=== PATIENT | male | born 1995 | race Caucasian/White ===

== ENCOUNTER 2019-07-18 06:47 | Emergency (ER) | payer OTHER, SELFPAY ==
[2019-07-18 06:48] VITALS: BP 176/106; PULSE 95; RESP 18; TEMP 36.9; O2SAT 100; BMI 39.8
[2019-07-18 06:53] VITALS: BP 165/96
--- NOTE | 2019-07-18 07:02 | RAD_ITS ---
STUDY: X-RAY CHEST REASON FOR EXAM: Male, 24 years old. cough x 2 weeks TECHNIQUE: PA and lateral views of the chest. COMPARISON: None. FINDINGS: The lungs are clear and expanded. There is no demonstrated pleural abnormality. Normal size heart. Normal mediastinum and osvaldo. Normal visualized pulmonary arteries. Normal visualized aortic arch and descending thoracic aorta. Normal visualized thoracic spine. Normal visualized ribs, clavicles, and shoulders. RAD/Chest PA and Lateral IMPRESSION: Normal x-ray examination of the chest. Electronically Signed: Tong Ching MD at 8:06 EST , Service support ,
--- NOTE | 2019-07-18 07:03 | ED.DCSUM_ITS ---
History of Present Illness Chief Complaint: Cold Sx Detail of Chief Complaint: Difficulty breathing when sitting Informant: Patient Onset: Weeks - Onset of illness 2 weeks ago Context: Sudden Onset Timing: Continuous Quality: Congestion, change in voice, productive cough Location: Respiratory Current Severity: Mild Maximum Severity: Moderate Worsened by: Sitting Relieved by: Nothing Associated Symptoms: Posttussive vomiting Narrative: Patient is a 24-year-old non-smoker who presents with upper respiratory symptoms that started 2 weeks ago. He initially complained of congestion postnasal drainage. He now complains of sore throat. His cough is productive of colored sputum. He presents because he is having difficulty breathing and he is now vomiting after coughing. Sputum is yellow. Emesis is yellow. There is no blood or coffee grounds noted. He denies epigastric pain or chest pain. He denies fever or chills. He denies ocular, visual symptoms. He states his hearing is muffled. He denies ringing in his ears or pain in his ears. He denies headache, neck pain, stiffness or photophobia. He denies rash. He denies ill contacts. Prior similar symptoms: No Recent Illness/Hospitalization: No - Past Medical History (1) No significant past medical history Status: Acute Past Medical History - Allergies and Home Meds Allergies/Adverse Reactions: Allergies No Known Allergies Allergy (Verified 07/18/19 06:50) Primary Care Physician: Ziyad Mcdonald MD [STAFF PHYSICIAN] - Prior records reviewed: No Past Medical History: None Surgical History: no surgical history Lives: Spouse/ Significant Other, With Family Smoking Status: Never smoker Alcohol: None Drugs: None Review of Systems General: Reports: Malaise. Denies: Chills, Fever, Subjective, Sweats Eyes: Denies: Visual changes - bilaterally, Blurred Vision - bilaterally ENT: Reports: Rhinorrhea, Sore throat, - - Muffled hearing. Denies: Bilateral ear pain Cardiovascular: Denies: Chest pain, Palpitations Respiratory: Reports: Dyspnea, Cough, Sputum. Denies: Dyspnea on exertion, Orthopnea, Paroxysmal nocturnal dyspnea Gastrointestinal: Denies: Abdominal pain, Nausea, Vomiting, Diarrhea, Melena, Hematochezia Genitourinary: Denies: Dysuria, Hematuria, Frequency Musculoskeletal: Denies: Myalgias, Arthralgias, Neck pain, Back pain, Swelling, Extremity Pain, -, - Neurological: Denies: Headache, Weakness, Parasthesia Allergy: Denies: Uticaria, Swelling of the mouth, Swelling of the tongue Physical Exam Vital Signs/Narrative: Vital Signs Temp Pulse Resp BP Pulse Ox 07/18/19 06:53 165/96 H 07/18/19 06:48 98.5 F 95 18 176/106 H 100 Inital Vital Signs reviewed: Yes General: Well nourished, Well developed, Obese, No Acute Distress Head: Normocephalic, Atraumatic Eyes: Perrl, EOMI. Negative for: Pale conjunctiva, Scleral icterus ENT: Moist mucous membranes, TM's clear, Nasal congestion, - - Patient's voice is nasal sounding.. Negative for: No rhinorrhea, Sinus tenderness Neck: Supple, Nontender, No lymphadenopathy, No JVD, - - Trachea is midline. There is no stridor. Cardiovascular: Regular rate, Regular rhythm, No murmurs, Normal S1, Normal S2 Respiratory: No distress, Chest nontender, Wheezing - There is wheezing with forced expiration. Abdomen: Soft, Nontender, Nondistended, Normal bowel sounds Back: Nontender, Normal Inspection Extremities: Nontender, No edema Skin: Normal color, No rash. Negative for: Cyanosis, Diaphoresis, Jaundice Neurological: Alert, Oriented x3, Cranial nerves II-XII grossly intact, Normal Strength, Normal Sensation Psychological: Normal affect, Normal Mood Diagnostic/Tx/Re-eval Chest X-Ray - ED: 2 View, Read by ED Physician, Normal, Heart, Lungs, Mediastinum, Bony Structures, No Acute Disease, No Infiltrates 07/18/19 07:02 Chest PA and Lateral [RAD] Stat - Medical Decision Making Since patient had a cough for 2 weeks that is productive of colored sputum and he is wheezing with no history of asthma will obtain chest x-ray to assess for pneumonia. Since he has never used a metered-dose inhaler he was instructed how to. 4 puffs of albuterol was administered per respiratory. Chest x-ray is normal. Since patient had a productive cough for 2 weeks and he reports sputum is green in color will treat with doxycycline. And will also instruct to use inhaler. ED Disposition - Plan for ED Patient: Disposition: Home or Assisted Living Diagnosis: Purulent bronchitis, Hyperactive airway disease Instructions: BRONCHITIS with Wheezing (Adult) Prescriptions: Doxycycline 100 mg PO BID #10 cap Transmission Status: Pending to [facility] [employer] [facility] Referrals: Ziyad Mcdonald MD [STAFF PHYSICIAN] - Ricco Paz DO [STAFF PHYSICIAN] - 1 Week if not improving Additional Instructions: 1. Take antibiotics until gone 2. 2 puffs of inhaler every 4 hours while awake for the next 2 days and every 4-6 hours as needed for shortness of breath/wheezing.
== END 2019-07-18 07:39 | disposition home or self-care (01) ==
PROVIDERS: Emergency Provider Emergency Medicine
DX: J41.1 Mucopurulent chronic bronchitis (principal); J45.909 Unspecified asthma, uncomplicated; E66.9 Obesity, unspecified; Z68.39 Body mass index [BMI] 39.0-39.9, adult
CPT/HCPCS: 71046; 94640; 99283

== ENCOUNTER 2019-07-23 09:27 | Emergency (ER) | payer OTHER, SELFPAY ==
[2019-07-23 09:28] VITALS: BP 178/105; PULSE 102; RESP 16; TEMP 36.6; O2SAT 99; BMI 39.8
--- NOTE | 2019-07-23 09:38 | RAD_ITS ---
STUDY: X-RAY CHEST REASON FOR EXAM: Male, 24 years old. COLD LIKE S/S, COUGH, RUNNY NOSE. C/O CONGESTION, NOT TAKING ANYTHING FOR S/S. TECHNIQUE: PA and lateral views of the chest. COMPARISON: July 17, 2019. FINDINGS: The lungs are clear and expanded. There is no demonstrated pleural abnormality. Normal size heart. Normal mediastinum and osvaldo. Normal visualized pulmonary arteries. Normal visualized aortic arch and descending thoracic aorta. Normal visualized thoracic spine. Normal visualized ribs, clavicles, and shoulders. There is no demonstrated abnormality of the visualized soft tissue structures of the upper abdomen. RAD/Chest PA and Lateral IMPRESSION: Normal x-ray examination of the chest. Electronically Signed: Sav Yeager MD at 12:03 EST , Service support ,
--- NOTE | 2019-07-23 09:39 | EKG12_ITS ---
Test Reason : SOB Blood Pressure : / mmHG Vent. Rate : 100 BPM Atrial Rate : 100 BPM P-R Int : 150 ms QRS Dur : 102 ms QT Int : 348 ms P-R-T Axes : 028 029 026 degrees QTc Int : 448 ms Normal sinus rhythm Septal infarct , age undetermined Abnormal ECG Confirmed by AGUEDA JIMENEZ ([id number]), editor index RANDY WASHINGTON ([id number]) on 07/25/2019 10:41:31 AM Referred By: CASSIE Confirmed By:AGUEDA JIMENEZ
[2019-07-23] MEDS: LORazepam 1 MG Tablet PO (09:47)
--- NOTE | 2019-07-23 09:47 | ED.DCSUM_ITS ---
- ER Visit Summary Date of Service: 07/23/19 Chief Complaint: [Shortness of breath] History of Present Illness: The patient is a 24 M [the emergency department with 2-week history of cough and shortness of breath. Patient was seen in the emergency department 5 days ago for the same complaint and had a chest x-ray that was unremarkable. Patient was started on doxycycline and given an albuterol MDI. Patient states that he been doing pretty well until this morning. Patient states that he is only been using his inhaler once a day usually in the morning. This morning states that he had some phlegm in the throat and then started feeling like he could not breathe. Patient feels like there is something stuck in his throat. Patient states that at times she will get some numbness and tingling of his lips. He has no history of anxiety or panic attacks that he knows of. Patient still bringing up some mucus at times it is white and clear in color. He has had no fevers. He denies any chest pain.] Physical Examination: [HEENT-PERRLA, EOMI. Cranial nerves II through XII nicolas ssly intact. TMs clear. Mucous membranes moist. No adenopathy. Cardiovascular-regular rate and rhythm without murmur or ectopy Lungs-clear to auscultation, chest wall stable without crepitus or subcu emphysema Abdomen-normoactive bowel sounds, soft, nontender, no rebound or rigidity, no peritoneal signs. Extremities-intact ?4, normal range of motion, normal pulses, atraumatic] Test Results: [D-dimer performed was normal 0.48. Repeat chest x-ray obtained showed nothing acute on my interpretation.] EKG obtained showed a sinus rhythm with a ventricular rate of 100 bpm with no acute ST segment changes. Emergency Department Course and Treatment: [Was given Ativan 1 mg p.o. and his symptoms resolved.] Treatment Plan: [Patient will be given a prescription for PRN Ativan. Patient is in the process of setting up a follow-up appointment with primary care physician in the clinic.] Patient to finish his antibiotic. He is to continue with his inhaler as needed for wheezing although there was no evidence of wheezing in the department today. Disposition: [Discharged home in stable condition] Impression: [Dyspnea URI Anxiety] This note was generated with [employer] software. It may contain incorrect words, spelling, and punctuation that were not noted in review of the chart prior to signing ED Disposition - Plan for ED Patient: Referrals: Care Physician,No Primary [Primary Care Provider] -
[2019-07-23 10:31] LABS: D-Dimer Quantitative (DVT/PE) 0.48 FEU/ug/m (0.27-0.49)
--- NOTE | 2019-07-23 10:53 | ED.DEP ---
ED Disposition - Plan for ED Patient: Instructions: BRONCHITIS, Antiobiotic Treatment (Adult), Panic Attack Prescriptions: Lorazepam [Ativan] 1 mg PO TID PRN #10 tab PRN Reason: Anxiety Prescription Printed Referrals: Care Physician,No Primary [Primary Care Provider] - 5-7 Days
[2019-07-23 11:05] VITALS: BP 129/57; PULSE 62; RESP 15; O2SAT 99
== END 2019-07-23 11:05 | disposition home or self-care (01) ==
LOC: ED 09:41
PROVIDERS: Emergency Provider Emergency Medicine
DX: J06.9 Acute upper respiratory infection, unspecified (principal); J40 Bronchitis, not specified as acute or chronic; R06.00 Dyspnea, unspecified; F41.9 Anxiety disorder, unspecified
CPT/HCPCS: 36415; 71046; 85379; 93005; 99282

== ENCOUNTER → 2019-07-26 08:35 | Outpatient (CLI) | payer OTHER, SELFPAY ==
[2019-07-23 09:28] VITALS: BMI 39.8
--- NOTE | 2019-07-26 08:48 | RAD_ITS ---
Procedure: Fluoroscopically guided, dedicated esophagram including frontal and lateral cine views of the larynx/pharynx region. INDICATIONS: Dysphagia. Feels like lump in throat, burning sensation when burping, coughing and choking with swallowing solids and liquids. Fluoroscopy time: 1 minute and 23 seconds. TECHNIQUE: The patient easily and readily swallowed effervescent crystals, various density barium contrast and a barium pill. FINDINGS: Esophageal motility appears normal. There is no esophageal stricture, web or diverticulum. There is no hiatal hernia. A 12 mm barium pill passed easily and readily into the stomach without delay. The esophageal mucosal pattern appears normal. Free reflux to the level of the mid thoracic esophagus with relatively delayed clearing was observed during the course of the real-time exam. There is symmetric transit of the contrast bolus through the pharynx/larynx/hypopharyngeal region. However, there is a persistent blunting of the inferior margin of the right vallecula with mild associated mucosal irregularity. Recommend direct visualization. RAD/Esophagus Only IMPRESSION: Free gastroesophageal reflux to the level of the mid thoracic esophagus with relatively delayed clearing. Mucosal irregularity and possible small mass in the right vallecula, highly recommend direct visualization. Fluoroscopy time 1 minute and 23 seconds. Electronically Signed: Sav Yeager MD at 10:20 EST , Service support ,
== END ==
PROVIDERS: Family Provider Family Medicine; PCP Family Medicine; Referring Provider Family Medicine; Visit Provider Family Medicine
DX: R13.10 Dysphagia, unspecified (principal)
CPT/HCPCS: 74220

== ENCOUNTER 2019-07-27 17:58 | Emergency (ER) | payer OTHER, SELFPAY ==
[2019-07-27 17:59] VITALS: BP 152/85; PULSE 78; RESP 18; TEMP 36.7; O2SAT 97; BMI 38.4
--- NOTE | 2019-07-27 18:32 | ED.DCSUM_ITS ---
- ER Visit Summary Date of Service: 07/27/19 Chief Complaint: Sensation of a throat foreign body. History of Present Illness: The patient is a 24 M no significant past medical history. Patient been seen here several times. Had a barium swallow done with his primary care physician. The results are in the computer showing concern for a mass on the right vallecula. Patient is able to swallow he denies any trouble breathing he just says he feels discomfort like there is something in his throat. This is been going on now a week. He denies any fever. Physical Examination: Young male no acute distress vital signs are stable afebrile. H EENT exam unremarkable. Moist membranes. No trouble swallowing or breathing. No stridor or drooling. I gave him a glass water he swallowed it without any difficulty. Neck nontender no lymphadenopathy. No mass. Trachea midline. Lungs clear to auscultation bilaterally. Heart regular rhythm no murmur. Abdomen soft nontender. Patient is moving all 4 extremities. Test Results: None Emergency Department Course and Treatment: Patient had a recent barium swallow that is concerning for possible mass on his vallecula. I went over those test results with he and his . He will follow-up with ENT this week to have upper scope done and possible biopsy if they feel that is needed. Treatment Plan: Follow-up with ENT. Disposition: Charge Impression: Throat foreign body sensation secondary to vallecula soft tissue mass of uncertain etiology This note was generated with [employer] dictation software. It may contain incorrect words, spelling, and punctuation that were not noted in review of the chart prior to signing ED Disposition - Plan for ED Patient: Referrals: Kaleb Junior MD [Primary Care Provider] -
--- NOTE | 2019-07-27 18:34 | ED.DEP ---
ED Disposition - Plan for ED Patient: Disposition: Home or Assisted Living Referrals: Onel Romero MD [STAFF PHYSICIAN] - As soon as possible Additional Instructions: You have a possible growth on your lower throat that needs to be scoped and diagnosed. Call and follow-up with ear nose and throat Dr. Onel Romero.
== END 2019-07-27 18:41 | disposition home or self-care (01) ==
PROVIDERS: Emergency Provider Emergency Medicine; Family Provider Family Medicine; PCP Family Medicine
DX: J39.2 Other diseases of pharynx (principal); R09.89 Other specified symptoms and signs involving the circulatory and respiratory systems
CPT/HCPCS: 99282

== ENCOUNTER 2019-08-08 15:23 | Emergency (ER) | payer OTHER, SELFPAY ==
[2019-08-08 15:24] VITALS: BP 142/73; PULSE 74; RESP 16; TEMP 36.6; O2SAT 98; BMI 36.9
--- NOTE | 2019-08-08 15:54 | ED.VISSUMM ---
- ER Visit Summary Date of Service: 08/08/19 Chief Complaint: Possible upper GI bleed History of Present Illness: The patient is a 24 yo M no significant past medical history besides reflux. Patient states recently has had trouble eating. States he gets epigastric pain. He has lost reportedly 36 pounds in the last month or so due to decreased intake due to abdominal pain. States today burped and he brought up some blood. He went to the urgent care at the [facility] when he was unable to get into his primary care physician's office. The urgent care referred him to the GI doctor to [facility]. When the AUTO BODY REPAIR TEACHER was examining him according to the patient he had epigastric abdominal pain and threw up in their office a small amount blood. He states it was bright red. He denies any melena. He is on no blood thinners. He is never had issues with an ulcer, varices or GI bleed. He has had no recent instrumentation. He is never had upper or lower endoscopy. He denies any bloody noses or easy bruising lately. Physical Examination: Young male no acute distress. Vital signs are stable. He is afebrile. He does not look septic or toxic. His blood pressure is 142/73. His heart rate 74. H EENT exam unremarkable. Moist his membranes. Currently there is no signs of blood either in his nose or his posterior pharynx or mouth. Neck nontender. Lungs clear to auscultation bilaterally. Heart regular rhythm no murmur. Abdomen is soft. He has mild epigastric tenderness. No rebound or guarding. No rigidity. Right upper and right lower quadrant unremarkable. There is no obvious organomegaly or masses. There are no peritoneal signs. He is moving all 4 extremities. Back is nontender. Skin there is no bruising. There are no rashes. Neurologically is awake and alert. Test Results: CBC showed a white count of 6. Hemoglobin is 16.1 with hematocrit of 47. High normal. Chemistries are unremarkable gap of 14. BUN is 7 creatinine 1.4. Liver enzymes unremarkable ALT at 94 AST of 44. Lipase normal at 196. We attempted to place an OG and the patient and he could not tolerate. He Turning away or removing the tube before it was in the stomach. Emergency Department Course and Treatment: Patient sent in for concern of epigastric bowel pain and possible upper GI bleed. Labs will be obtained along with an NG or OG placed to see if there is blood in the stomach. Repeat exam is doing well at 1635 PM. Abdomen is benign. We went over all his test results. He could not tolerate the Cogentin being placed. Nor did he want an NG. And he did not want a rectal exam. Treatment Plan: He will continue on his Protonix daily. Follow-up with his primary care physician or a GI doctor or general surgeon at the [facility] for possible upper endoscopy if this is needed. If he is not improving in 10 continues weight loss he may need an abdominal CAT scan. Disposition: DC Impression: Reported hematemesis Rule out GI bleed This note was generated with [employer] dictation software. It may contain incorrect words, spelling, and punctuation that were not noted in review of the chart prior to signing ED Disposition - Plan for ED Patient: Referrals: Kaleb Junior MD [Primary Care Provider] -
[2019-08-08 16:11] LABS: Absolute Lymphocyte Count 1.59 X10^3/uL (0.83-4.51); Absolute Neutrophil Count 4.5 X10^3/uL (2.0-7.7); Basophil# 0.04 X10^3/uL; Basophil% 0.6 % (0-1); Eosinophil# 0.14 X10^3/uL; Hematocrit 47.3 % (40-54); Hemoglobin 16.1 g/dL (13.0-16.5); Lymphocyte # 1.59 X10^3/ul (4.0); Mean Corpuscular Volume 85.2 fL (80-94); Mean Platelet Vol. 11.4 fl (6.2-12.0); Monocyte# 0.59 X10^3/uL; Monocyte% 8.6 % (0-10); NRBC Flagged by Analyzer 0 % (0-5); Neutrophil # 4.52 X10^3/uL (2.7-7.7); Neutrophil % 65.5 % (47-70); Platelet Count 216 K/mm3 (150-450); RBC Distribution Width CV 13.4 % (11.6-14.6); RBC Distribution Width SD 41.5 fl (35.1-43.9); Red Blood Count 5.55 M/mm3 (4.6-6.2); White Blood Count 6.9 K/mm3 (4.4-11.0)
[2019-08-08 16:26] LABS: AST(SGOT) 44 U/L (15-37); Alanine Aminotransfer ALT/SGPT 94 U/L (16-61); Albumin, Serum 4.5 g/dL (3.2-5.0); Alkaline Phosphatase 93 U/L (45-117); Anion Gap 14 (5-15); BUN 7 mg/dL (7-18); Bilirubin, Direct 0.18 mg/dL (0.00-0.30); Calcium,Total 9.3 mg/dL (8.5-10.1); Chloride 107 mmol/L (98-107); EST Glomerular Filtration Rate 66 mL/min (>60); Est Glom Filt Rate - Afr Amer 80 mL/min (>60); Globulin 3.8 g/dL (2.2-4.2); Glucose 78 mg/dL (74-106); Lipase 196 U/L (73-393); Potassium 3.7 mmol/L (3.5-5.1); Protein, Total 8.3 g/dL (6.4-8.2); Sodium Level 137 mmol/L (136-145)
--- NOTE | 2019-08-08 16:41 | DCINST.ED_ITS ---
ED Disposition - Plan for ED Patient: Disposition: Home or Assisted Living Instructions: GI BLEED, Upper (Stable) Referrals: Kaleb Junior MD [Primary Care Provider] - As Needed Joanie Madison MD [STAFF PHYSICIAN] - As soon as possible Additional Instructions: Continue your Protonix daily. Call and follow-up with your primary care physician and/or Dr. Joanie Madison of the [facility] If your symptoms are not improving you may need a upper endoscopy or a scope to look at your stomach to ensure that there is no bleeding, or ulcer or other cause of your pain. Also if your weight loss continues you may need a CAT scan of your abdomen and pelvis. All your labs today were unremarkable. Your blood counts were normal and showed no signs of any significant bleeding. If you notice black stool or throwing up more blood return.
[2019-08-08 16:51] VITALS: BP 123/70; PULSE 84; RESP 18
== END 2019-08-08 16:52 | disposition home or self-care (01) ==
PROVIDERS: Emergency Provider Emergency Medicine; PCP Family Medicine
DX: K92.0 Hematemesis (principal); K21.9 Gastro-esophageal reflux disease without esophagitis
CPT/HCPCS: 80048; 80076; 83690; 85025; 99284; A4216

== ENCOUNTER 2019-08-10 08:46 | Inpatient (IN) | payer OTHER, SELFPAY ==
[2019-08-10 08:47] VITALS: BP 138/85; PULSE 84; RESP 18; TEMP 36.6; O2SAT 98; BMI 36.6
--- NOTE | 2019-08-10 09:02 | CT_ITS ---
STUDY: CT SOFT TISSUE NECK WITH CONTRAST REASON FOR EXAM: Male, 24 years old. Dysphagia, SOB, cough, hemoptysis, weight loss. RADIATION DOSAGE (If Supplied By Facility): CTDIvol = ( 20.50 ) mGy, DLP = ( 1685.82 ) mGycm TECHNIQUE: The patient was scanned in a multi-detector CT scanner. High resolution transaxial imaging was performed following intravenous administration of IV 75mL [id number]-300. Sagittal and coronal images were reconstructed. Individualized dose optimization techniques were used for this CT. COMPARISON: None. FINDINGS: Normal bilateral parotid glands. Normal bilateral zipper repairer spaces. Normal bilateral parapharyngeal spaces. Normal bilateral carotid spaces. Normal bilateral sublingual and submandibular glands and spaces. Normal visualized nasopharynx. Normal retropharyngeal space. Normal perivertebral space. Normal visualized bilateral faucial tonsils. The visualized tongue, tongue base and oropharynx are normal. There are slightly prominent nodes in the carotid spaces bilaterally. There is no demonstrated solid or cystic mass lesion. There is no abnormal contrast enhancement. Normal epiglottis, bilateral vallecula and hypopharynx. The pre-epiglottic and paraglottic adipose spaces are normal. Normal visualized bilateral piriform sinuses, aryepiglottic folds, vocal cords, and arytenoid-cricoid articulations. Normal subglottic trachea. Normal bilateral lobes of the thyroid gland. Normal visualized pulmonary apices. Normal visualized paranasal sinuses. Normal visualized cervical spine. CT/Soft Tissue Neck WITH Contrast IMPRESSION: Nonspecific prominent nodes bilaterally which could be reactive. The exact etiology is undetermined at this time. Unremarkable airway. Electronically Signed: Chago Myles MD at 10:37 EST Tel , Service support ,
--- NOTE | 2019-08-10 09:06 | ED.DCSUM_ITS ---
History of Present Illness Chief Complaint: Shortness of Breath Narrative: Patient presenting for evaluation secondary to coughing up blood. Patient has been undergoing work-up for a recent onset of dysphasia. Patient states that since about Lj he has been having a foreign body sensation in his throat and difficulty with swallowing solids. He reports that he has been eating soft foods and liquids since then, and is actually lost about 35 pounds. He denies any fevers chills or night sweats associated with this. Patient has been seen in the emergency department a couple times for this. He has been undergoing work-up by ENT as well as GI. He had a recent barium swallow that showed a possible abnormality in his throat and he received a laryngoscopy by ENT that apparently was found to be normal. Patient has had a couple episodes where he has spit up blood. He states that he will get a foreign body type sensation in his throat and then spit up bright red blood. He states that this is not vomiting blood, and he is not coughing up but rather it seems to be originating from his throat. Patient is pending a evaluation by GI, and has an appointment on Monday. Patient reports that he had another episode where he spit up blood this morning and he called the ENT office and they recommended that he come to the emergency department. Past Medical History - Allergies and Home Meds Allergies/Adverse Reactions: Allergies No Known Allergies Allergy (Verified 08/10/19 08:49) Primary Care Physician: Kaleb Junior MD [Primary Care Provider] - Past Medical History: None Surgical History: no surgical history Smoking Status: Never smoker Review of Systems All systems negative except as indicated General: Reports: Weight loss Eyes: Denies: Visual changes - bilaterally, Diplopia ENT: Reports: - - Difficulty swallowing and spitting up blood Cardiovascular: Denies: Chest pain, Palpitations Respiratory: Denies: Dyspnea, Cough, Dyspnea on exertion Gastrointestinal: Denies: Abdominal pain, Nausea, Vomiting, Diarrhea, Melena, Hematochezia Genitourinary: Denies: Dysuria, Hematuria, Frequency Musculoskeletal: Denies: Back pain, Extremity Pain Skin: Denies: Rash, Wounds Neurological: Denies: Headache, Weakness, Numbness Physical Exam Vital Signs/Narrative: Vital Signs Temp Pulse Resp BP Pulse Ox 08/10/19 08:47 97.9 F 84 18 138/85 H 98 Inital Vital Signs reviewed: Yes General: Well nourished, Well developed, No Acute Distress Head: Normocephalic, Atraumatic Eyes: Perrl, EOMI ENT: - - 2+ bilateral tonsillar enlargement without evidence of erythema or exudate. Airway is patent. Neck is supple and nontender with no palpable masses or lymphadenopathy. Neck: Supple, Nontender, No lymphadenopathy Cardiovascular: Regular rate, Regular rhythm, No murmurs Respiratory: No distress, CTA bilaterally, Chest nontender Abdomen: Soft, Nontender, Nondistended, Normal bowel sounds Back: Nontender, Normal Inspection Extremities: Nontender, No edema Skin: Normal color, No rash Neurological: Alert, Oriented x3, Cranial nerves II-XII grossly intact, Normal Strength, Normal Sensation Psychological: Normal affect, Normal Mood Diagnostic/Tx/Re-eval - Medical Decision Making Patient presented secondary to dysphasia and spitting up blood. Patient did report that he had about a 35 pound weight loss I was concerned for the possibility of malignancy or other etiology. Laboratory work-up shows the patient to have evidence of a anion gap acidosis with a bicarbonate of 13 but maintained renal function. CT of the chest with contrast showed to the patient actually to have potential bowel inflammation, CT of the neck showed patient to have some nonspecific lymph nodes. Patient was given IV saline hydration. Patient's general presentation at this point given his dysphasia with difficulty swallowing solid foods, weight loss, potential intestinal inflammation would seem to be consistent with a possible onset of Crohn's disease. Regardless of believe the patient requires admission secondary to his dehydration. Patient will be admitted under the hospitalist. ED Disposition - Plan for ED Patient: Disposition: Acute Care Hospital [facility] Diagnosis: Dehydration, Dysphasia, Colitis
[2019-08-10 09:24] LABS: Absolute Lymphocyte Count 1.23 X10^3/uL (0.83-4.51); Absolute Neutrophil Count 3.4 X10^3/uL (2.0-7.7); Basophil# 0.04 X10^3/uL; Basophil% 0.7 % (0-1); Eosinophil# 0.15 X10^3/uL; Eosinophils% 2.8 % (0-5); Hematocrit 48.2 % (40-54); Hemoglobin 16.4 g/dL (13.0-16.5); Lymphocyte # 1.23 X10^3/ul (4.0); Lymphocyte % 22.8 % (19-41); Mean Corpuscular Hgb 28.8 pg (27.0-32.0); Mean Corpuscular Volume 84.6 fL (80-94); Mean Platelet Vol. 11.2 fl (6.2-12.0); Monocyte# 0.57 X10^3/uL; Monocyte% 10.6 % (0-10); NRBC Flagged by Analyzer 0 % (0-5); Neutrophil # 3.39 X10^3/uL (2.7-7.7); Neutrophil % 62.7 % (47-70); Platelet Count 199 K/mm3 (150-450); RBC Distribution Width CV 13.5 % (11.6-14.6); RBC Distribution Width SD 41.6 fl (35.1-43.9); White Blood Count 5.4 K/mm3 (4.4-11.0)
[2019-08-10] MEDS: 0.9% Normal Saline 1,000 ML 1000 ML IV (09:30)
[2019-08-10 09:58] LABS: ALB/GLOB Ratio 1.1 RATIO (0.9-2.4); AST(SGOT) 57 U/L (15-37); Alanine Aminotransfer ALT/SGPT 98 U/L (16-61); Albumin, Serum 4.3 g/dL (3.2-5.0); Alkaline Phosphatase 87 U/L (45-117); Anion Gap 17 (5-15); BUN 6 mg/dL (7-18); BUN/Creat Ratio 4.6 RATIO (10-20); Calcium,Total 9.2 mg/dL (8.5-10.1); Chloride 108 mmol/L (98-107); Creatinine, Serum 1.31 mg/dL (0.70-1.30); EST Glomerular Filtration Rate 71 mL/min (>60); Est Glom Filt Rate - Afr Amer 86 mL/min (>60); Estimated Creatinine Clearance 101.09 ml/min; Glucose 79 mg/dL (74-106); Protein, Total 8.3 g/dL (6.4-8.2); Sodium Level 138 mmol/L (136-145)
--- NOTE | 2019-08-10 10:03 | CT_ITS ---
STUDY: CT CHEST WITH CONTRAST REASON FOR EXAM: Male, 24 years old patient with dysphagia, shortness of breath, cough, hemoptysis, and weight loss. RADIATION DOSAGE (If Supplied By Facility): CTDIvol = ( 20.50 ) mGy, DLP = ( 1685.82 ) mGycm TECHNIQUE: Transaxial imaging was performed following intravenous administration of 75 mL of Isovue-300. Multiplanar coronal and sagittal images were reformatted. Individualized dose optimization techniques were used for this CT. COMPARISON: None. FINDINGS: The lungs are expanded. There is a nodular opacity in the left lower lobe measuring up to 1.4 cm in greatest dimension. This may represent patchy airspace disease. There is some patchy airspace disease in the posterior segment of the right lower lobe as well. The lungs are otherwise clear. There is no demonstrated pleural abnormality. Normal heart and pericardium. Normal mediastinum. Normal hilar regions. Normal enhanced pulmonary arteries. Normal aorta arch and descending thoracic aorta. Normal osseous structures. There is a hepatic steatosis. There may be some biliary sludge within the gallbladder. Appears to be abnormal thickening of the valdez of the colon. The colon is only partially visualized on this study. CT/Chest WITH Contrast IMPRESSION: 1. Bilateral basilar dependent atelectasis and/or airspace disease. 2. Hepatic steatosis. 3. Possible colitis. Electronically Signed: Mary Beth Thompson MD at 10:58 EST , Service support ,
--- NOTE | 2019-08-10 11:24 | NURSING ---
DR GIBRAN WILBURN
--- NOTE | 2019-08-10 11:29 | NURSING ---
MED SURG OBS KITTOE DEHYDRATION, POSSIBLE INFLAMMATORY BOWEL DISEASE
--- NOTE | 2019-08-10 11:44 | PCM.HP.STD ---
Problem List (1) Colitis Status: Acute (2) Dehydration Status: Acute (3) Dysphasia Status: Acute History of Present Illness Date of Admission: 08/10/19 Chief Complaint: Blood in the mouth The patient is a 24 year old M who presented with nonspecific symptoms including blood in the mouth. Patient has had 3 visits to the emergency department since July prior to his current admission with similar complaints. He was followed by ENT had a laryngoscope which was unremarkable. He woke up on the morning of his admission with blood in the mouth as well as on his bedsheet. Patient denies any coughing up blood no vomiting blood. He however did complain of epigastric discomfort. Patient apparently been started on PPI by primary care physician for suspected GERD. In the emergency department patient was found to be dehydrated with worsening kidney function. He had CT of the abdomen which was consistent with colitis subsequently admitted to regular nursing floor for further management Past Medical History Allergies No Known Allergies Allergy (Verified 08/10/19 08:49) Home Medications: Ambulatory Orders Medication Instructions Recorded Esomeprazole Magnesium [Nexium 20 mg PO DAILY 08/08/19 24Hr] Surgical History: no surgical history Smoking Status: Never smoker - *Family History Paternal History Items: - - Father healthy denies history of hypertension, diabetes, inflammatory bowel disease Review of Systems Constitutional: Reports: Weight Change. Denies: Anorexia, Chills, Fever, Night Sweats HEENT: Denies: Head Aches, Sinus Congestion, Sinus Drainage Cardiovascular: Denies: Chest Pain, Orthopnea, Palpitations, Paroxysmal Noc. Dyspnea Respiratory: Reports: Shortness of Breath, Shortness of breath upon exertion. Denies: Shortness of breath at rest Gastrointestinal: Reports: Abdominal Pain, Hematemesis. Denies: Hematochezia, Nausea, Melena Genitourinary: Denies: Dysuria, Frequency, Hematuria, Urgency Musculoskeletal: Denies: Joint Pain, Joint Tenderness Skin: Denies: Rash Neurological: Denies: Focal weakness, Numbness, Tingling Psychiatric: Denies: Homicidal Ideations, Suicidal Ideations Hematologic/ Lymphatic: Denies: Easy Bruising, Easy Bleeding VTE Information - Inpt Only VTE Present on Admission: No VTE Mechan Device Prophylaxis: None VTE Pharm Prophylaxis ordered?: No Reason prophylaxis not ordered:: Treatment Not Indicated Patient Problems: Active and Suspected Problems Dehydration (Acute) Dysphasia (Acute) Colitis (Acute) Objective: GENERAL: cooperative HEENT: Atraumatic; EYES; Anicteric, Normal Conjunctiva NECK; supple, normal thyroid, RESPIRATORY: Diminished to auscultation CARDIOVASCULAR: Regular S1 S2, GI: soft, normoactive bowel sounds, : No Renal angle tenderness; EXTREMITIES: No edema, no clubbing, MUSCULOSKELETAL: no muscle waisting NEURO: Awake; no lateralizing signs. SKIN: No Rash PSYCH; Flat affect - Physical Exam Vitals/I&O's: Vital Signs Temp Pulse Resp BP Pulse Ox 97.9 F 84 18 138/85 H 98 08/10/19 08:47 08/10/19 08:47 08/10/19 08:47 08/10/19 08:47 08/10/19 08:47 Oxygen Delivery Method Room Air Weight: 129.274 kg Body Mass Index (BMI) 36.6 Intake and Output for Last 24 Hours 08/08/19 08/09/19 08/10/19 23:59 23:59 23:59 Intake Total 1000 / 1000 Balance 1000 / 1000 Laboratory Results 08/10/19 09:20: WBC 5.4, RBC 5.70, Hgb 16.4, Hct 48.2, MCV 84.6, MCH 28.8, MCHC 34.0, RDW Std Deviation 41.6, RDW Coeff of Aurelio 13.5, Plt Count 199, MPV 11.2, Immature Gran % (Auto) 0.400, Neut % (Auto) 62.7, Lymph % (Auto) 22.8, [place] % (Auto) 10.6 H, Eos % (Auto) 2.8, Baso % (Auto) 0.7, Absolute Neuts (auto) 3.4, Absolute Lymphs (auto) 1.23, Nucleated RBC % 0 08/10/19 09:20: Sodium 138, Potassium 4.0, Chloride 108 H, Carbon Dioxide 13.0 L, Anion Gap 17 H, BUN 6 L, Creatinine 1.31 H, Estim Creat Clear Calc 101.09, Est GFR (MDRD) Af Amer 86, Est GFR (MDRD) Non-Af 71, BUN/Creatinine Ratio 4.6 L, Glucose 79, Calcium 9.2, Total Bilirubin 0.70, AST 57 H, ALT 98 H, Alkaline Phosphatase 87, Total Protein 8.3 H, Albumin 4.3, Globulin 4.0, Albumin/Globulin Ratio 1.1 Assessment/Plan All Active Problems No significant past medical history (Acute) Dehydration (Acute) Dysphasia (Acute) Colitis (Acute) Patient is a 24-year-old gentleman who presented with blood in the mouth 1. Suspected hematemesis ?? Upper GI bleed patient started on Protonix admitted to regular nursing floor for subsequent management. He apparently had a laryngoscopy 2 days prior to his admission which was unremarkable. Consult was placed to general surgery for possible EGD prior to discharge 2. Colitis ?Patient denies any previous history of inflammatory bowel disease. Given the findings on the CT patient was started on Cipro and Flagyl. Plan is for patient to follow-up with GI following his discharge for work-up for possible IBD 3. Acute kidney injury - Secondary to dehydration on IV fluids ordered serial BMP for monitoring 4. Atelectasis ?Based on CT findings added incentive spirometry to patient's treatment regimen 5. Obesity with BMI of 36.6 ?Weight loss advised 6. DVT prophylaxis ?Low risk did encourage early ambulation Code Visit Inpatient E&M: 29851 Init Hosp L3
[2019-08-10] MEDS: 0.9% Normal Saline 1,000 ML 150 ML IV (14:00)
[2019-08-10 14:01] VITALS: BMI 37.0
[2019-08-10 14:04] VITALS: BP 123/61; PULSE 53; RESP 18; TEMP 36.7; O2SAT 100
[2019-08-10 14:10] VITALS: BMI 37.1
[2019-08-10] MEDS: Ciprofloxacin 400 MG/200 ML BAG 200 MG IV ×2 (14:18→21:09)
[2019-08-10] MEDS: metroNIDAZOLE 500 MG/100 ML BAG 100 MG IV ×2 (15:49→22:48)
[2019-08-10] MEDS: Ondansetron 4 MG/2 ML Vial IV (17:35)
--- NOTE | 2019-08-10 18:55 | CT_ITS ---
STUDY: CT ABDOMEN AND PELVIS WITHOUT CONTRAST REASON FOR EXAM: Male, 24 years old. Epigastric discomfort, hemoptysis RADIATION DOSAGE (If Supplied By Facility): CTDIvol = ( 21.19 ) mGy, DLP = ( 1111.65 ) mGycm TECHNIQUE: Transaxial images were obtained from the dome of the diaphragm to the symphysis pubis with oral contrast, and without intravenous contrast. Sagittal and coronal images were reconstructed. Individualized dose optimization techniques were used for this CT. COMPARISON: CT of the chest dated August 10, 2019 at 10:08 AM. FINDINGS: The visualized lung bases are unremarkable. The visualized portions of the heart are within normal limits. There is decreased attenuation of the liver consistent with steatosis. The gallbladder is high in attenuation may be secondary to underlying sludge and/or retained intravenous contrast. Normal spleen. Normal pancreas. Normal bilateral adrenal glands. Normal right kidney. Normal left kidney. Normal visualized stomach. There is intramural fat within the terminal ileum. There is intramural fat within the colon as well suggestive of prior inflammation. The appendix is visualized and appears normal. Normal abdominal aorta. Normal inferior vena cava. Normal retroperitoneum. Normal urinary bladder. There is a small umbilical hernia containing fat. Normal osseous structures. CT/Abdomen/Pel W ORAL Cont Only IMPRESSION: Fatty infiltration of the liver. Electronically Signed: Funmi Booker MD at 19:34 EST Tel , Service support ,
[2019-08-10] MEDS: 0.9% Saline Lock 10 ML Syringe IV (19:12)
[2019-08-10] MEDS: proMETHazine 25 MG/ML Syringe IM (19:52)
[2019-08-10 20:00] VITALS: BP 119/72; PULSE 58; RESP 18; TEMP 36.2; O2SAT 98
[2019-08-11 02:00] VITALS: BP 82/34; PULSE 72; RESP 16; TEMP 36.1; O2SAT 100
[2019-08-11] MEDS: 0.9% Normal Saline 1,000 ML 150 ML IV ×3 (02:08→19:49)
[2019-08-11 04:30] VITALS: BP 99/54; PULSE 52; RESP 16; TEMP 36.7; O2SAT 100
[2019-08-11] MEDS: metroNIDAZOLE 500 MG/100 ML BAG 100 MG IV ×3 (05:39→22:41)
[2019-08-11 07:02] LABS: Absolute Lymphocyte Count 1.76 X10^3/uL (0.83-4.51); Absolute Neutrophil Count 2.4 X10^3/uL (2.0-7.7); Basophil# 0.04 X10^3/uL; Basophil% 0.8 % (0-1); Eosinophil# 0.23 X10^3/uL; Eosinophils% 4.5 % (0-5); Hematocrit 42.1 % (40-54); Lymphocyte # 1.76 X10^3/ul (4.0); Lymphocyte % 34.1 % (19-41); Mean Corp Hgb Conc 33.3 g/dL (32-36); Mean Corpuscular Hgb 28.3 pg (27.0-32.0); Mean Corpuscular Volume 85.2 fL (80-94); Mean Platelet Vol. 11.6 fl (6.2-12.0); Monocyte# 0.69 X10^3/uL; Monocyte% 13.4 % (0-10); NRBC Flagged by Analyzer 0 % (0-5); Neutrophil # 2.43 X10^3/uL (2.7-7.7); Platelet Count 169 K/mm3 (150-450); RBC Distribution Width CV 14.1 % (11.6-14.6); RBC Distribution Width SD 43.3 fl (35.1-43.9); Red Blood Count 4.94 M/mm3 (4.6-6.2); White Blood Count 5.2 K/mm3 (4.4-11.0)
[2019-08-11 07:13] LABS: Anion Gap 13 (5-15); BUN 5 mg/dL (7-18); BUN/Creat Ratio 4.5 RATIO (10-20); Calcium,Total 8.3 mg/dL (8.5-10.1); Chloride 109 mmol/L (98-107); Creatinine, Serum 1.12 mg/dL (0.70-1.30); EST Glomerular Filtration Rate 85 mL/min (>60); Est Glom Filt Rate - Afr Amer 103 mL/min (>60); Estimated Creatinine Clearance 114.94 ml/min; Glucose 66 mg/dL (74-106); Magnesium 1.6 mg/dL (1.6-2.6); Potassium 3.2 mmol/L (3.5-5.1); Sodium Level 139 mmol/L (136-145)
[2019-08-11 07:36] VITALS: O2SAT 98
--- NOTE | 2019-08-11 07:55 | PN_ITS ---
Patient Problems: Active and Suspected Problems Dehydration (Acute) Dysphasia (Acute) Colitis (Acute) Reason for Visit: Suspected GI bleed, colitis Subjective: Patient presented to the emergency department following discovery of blood in his mouth (questionable hematemesis versus hemoptysis patient however denied any cough. Patient in addition did complain of epigastric discomfort CT of the abdomen obtained on admission was questionable for colitis admitted to regular nursing floor for further management Consult was placed to Dr. Moreno plan is for patient to undergo endoscopic evaluation on 08/12/2019 Patient seen this a.m. diagnostic data reviewed significant for potassium of 3.2 repletion initiated. Objective: GENERAL: cooperative HEENT: Atraumatic; EYES; Anicteric, Normal Conjunctiva NECK; supple, normal thyroid, RESPIRATORY: Diminished to auscultation CARDIOVASCULAR: Regular S1 S2, GI: soft, normoactive bowel sounds, : No Renal angle tenderness; EXTREMITIES: No edema, no clubbing, MUSCULOSKELETAL: no muscle waisting NEURO: Awake; no lateralizing signs. SKIN: No Rash PSYCH; Flat affect Vitals/I&O's: Vital Signs Temp Pulse Resp BP Pulse Ox 98.1 F 52 L 16 99/54 L 98 08/11/19 04:30 08/11/19 04:30 08/11/19 04:30 08/11/19 04:30 08/11/19 07:36 Oxygen Delivery Method Room Air Weight: 127.5 kg Body Mass Index (BMI) 37.0 Intake and Output for Last 24 Hours 08/09/19 08/10/19 08/11/19 23:59 23:59 23:59 Intake Total 1732.5 / 2032.5 2115.0 / 2115.0 Output Total 950 / 950 Balance 1732.5 / 1082.5 1165.0 / 1165.0 Laboratory Results 08/10/19 09:20: WBC 5.4, RBC 5.70, Hgb 16.4, Hct 48.2, MCV 84.6, MCH 28.8, MCHC 34.0, RDW Std Deviation 41.6, RDW Coeff of Aurelio 13.5, Plt Count 199, MPV 11.2, Immature Gran % (Auto) 0.400, Neut % (Auto) 62.7, Lymph % (Auto) 22.8, [place] % (Auto) 10.6 H, Eos % (Auto) 2.8, Baso % (Auto) 0.7, Absolute Neuts (auto) 3.4, Absolute Lymphs (auto) 1.23, Nucleated RBC % 0 08/10/19 09:20: Sodium 138, Potassium 4.0, Chloride 108 H, Carbon Dioxide 13.0 L , Anion Gap 17 H, BUN 6 L, Creatinine 1.31 H, Estim Creat Clear Calc 101.09, Est GFR (MDRD) Af Amer 86, Est GFR (MDRD) Non-Af 71, BUN/Creatinine Ratio 4.6 L, Glucose 79, Calcium 9.2, Total Bilirubin 0.70, AST 57 H, ALT 98 H, Alkaline Phosphatase 87, Total Protein 8.3 H, Albumin 4.3, Globulin 4.0, Albumin/Globulin Ratio 1.1 08/11/19 05:50: WBC 5.2, RBC 4.94, Hgb 14.0, Hct 42.1, MCV 85.2, MCH 28.3, MCHC 33.3, RDW Std Deviation 43.3, RDW Coeff of Aurelio 14.1, Plt Count 169, MPV 11.6, Immature Gran % (Auto) 0.200, Neut % (Auto) 47.0, Lymph % (Auto) 34.1, [place] % (Auto) 13.4 H, Eos % (Auto) 4.5, Baso % (Auto) 0.8, Absolute Neuts (auto) 2.4, Absolute Lymphs (auto) 1.76, Nucleated RBC % 0 08/11/19 05:50: Sodium 139, Potassium 3.2 L, Chloride 109 H, Carbon Dioxide 17.0 L, Anion Gap 13, BUN 5 L, Creatinine 1.12, Estim Creat Clear Calc 114.94, Est GFR (MDRD) Af Amer 103, Est GFR (MDRD) Non-Af 85, BUN/Creatinine Ratio 4.5 L, Glucose 66 L, Calcium 8.3 L, Magnesium 1.6 Current Medications Acetaminophen (Tylenol) 650 mg PO Q6H PRN PRN PRN Reason: Pain Score 1-3/Temp > 100.7 F Al Hydroxide/Mg Hydroxide (Mylanta Ii) 30 ml PO Q6H PRN PRN PRN Reason: Gastric Burning Sodium Chloride () 1,000 mls @ 150 mls/hr IV .Q6H40M [facility] Stop: 08/11/19 22:55 Last Infusion: 08/11/19 05:39 Dose: 0 mls/hr Documented by: Ciprofloxacin (Cipro) 400 mg in 200 mls @ 200 mls/hr IV Q12 [facility] Last Infusion: 08/10/19 22:49 Dose: Infused Documented by: Metronidazole (Flagyl) 500 mg in 100 mls @ 100 mls/hr IV Q8 [facility] Last Infusion: 08/11/19 07:02 Dose: Infused Documented by: Pantoprazole Sodium 40 mg/ (Sodium Chloride) 110 mls @ 330 mls/hr IV Q12 [facility] Last Infusion: 08/11/19 00:38 Dose: Infused Documented by: Magnesium Hydroxide (Milk Of Magnesia) 30 ml PO DAILY PRN PRN PRN Reason: Constipation Melatonin (Melatonin) 3 mg PO QHS PRN PRN PRN Reason: INSOMNIA Morphine Sulfate () 4 mg IV Q3H PRN PRN PRN Reason: Pain Score 6-10/10 Nutritional Formula (Lactose Free) (Ensure Enlive) 120 ml PO 4X/DAY [facility] Last Admin: 08/10/19 21:09 Dose: 120 ml Documented by: Ondansetron HCl (Zofran) 4 mg IV Q8H PRN PRN PRN Reason: NAUSEA/VOMITING Last Admin: 08/10/19 17:35 Dose: 4 mg Documented by: Oxycodone HCl (Oxyir) 5 mg PO Q4H PRN PRN PRN Reason: Pain Score 4-5/10 Promethazine HCl (Phenergan) 25 mg IM Q6H PRN PRN PRN Reason: Breakthrough nausea/vomiting Last Admin: 08/10/19 19:52 Dose: 25 mg Documented by: Sodium Chloride () 10 - 40 ml IV UD PRN PRN Reason: SALINE FLUSH Last Admin: 08/10/19 19:12 Dose: 10 ml Documented by: Throat Lozenges (Cepacol Sore Throat Lozenge) 1 lozenge MUCOUS MEM Q2H PRN PRN PRN Reason: Sore throat or cough STROKE Vital Signs/Narrative: Vital Signs Temp Pulse Resp BP Pulse Ox 08/11/19 07:36 98 08/11/19 04:30 98.1 F 52 L 16 99/54 L 100 Medical Necessity - Tobacco Use Smoking Status: Never smoker Assessment/Plan All Active Problems No significant past medical history (Acute) Dehydration (Acute) Dysphasia (Acute) Colitis (Acute) Patient is a 24-year-old gentleman who presented with blood in the mouth 1. Suspected hematemesis ?? Upper GI bleed patient started on Protonix admitted to regular nursing floor for subsequent management. He apparently had a laryngoscopy 2 days prior to his admission which was unremarkable. Consult was placed to general surgery for possible EGD prior to discharge ?08/11/2019 patient was seen by Dr. Moreno with general surgery patient scheduled to undergo endoscopic evaluation on 08/12/2019. 2. Colitis ?Patient denies any previous history of inflammatory bowel disease. Given the findings on the CT patient was started on Cipro and Flagyl. Plan is for patient to follow-up with GI following his discharge for work-up for possible IBD 3. Acute kidney injury - Secondary to dehydration on IV fluids ordered serial BMP for monitoring 4. Atelectasis ?Based on CT findings added incentive spirometry to patient's treatment regimen 5. Obesity with BMI of 36.6 ?Weight loss advised 6. DVT prophylaxis ?Low risk did encourage early ambulation 7. Hypokalemia ?Corrected per protocol 8. Hepatic steatosis possibly related to patient obesity ?Patient to follow-up with PCP for subsequent monitoring also did encourage weight loss. Code Visit Inpatient E&M: 62020 Subs Hosp L2
[2019-08-11 09:34] VITALS: BP 121/72; PULSE 57; RESP 18; TEMP 36.6; O2SAT 100
[2019-08-11] MEDS: Ciprofloxacin 400 MG/200 ML BAG 200 MG IV ×2 (09:54→21:28)
--- NOTE | 2019-08-11 10:55 | PCM.CONS.GEN ---
Problem List (1) Dysphasia Status: Acute Reason for Consult Date of Consultation: 08/11/19 Reason for Consultation: Dysphagia and blood in his mouth History of Present Illness: The patient is a 24 year old M who says for the last month he has been having issues. He reports that he has been having difficulty swallowing he saw an ENT last week and a laryngoscopy was normal. He reports weight loss as well which has been unintentional. He reports that every time he eats he just feels very bloated. He was started on a PPI. He reports no nausea or vomiting or diarrhea. He is having abdominal pain in the umbilical region. Past Medical History Allergies No Known Allergies Allergy (Verified 08/10/19 08:49) Home Medications: Ambulatory Orders Medication Instructions Recorded Esomeprazole Magnesium [Nexium 20 mg PO DAILY 08/08/19 24Hr] Surgical History: no surgical history Smoking Status: Never smoker - *Family History Paternal History Items: - - Father healthy denies history of hypertension, diabetes, inflammatory bowel disease Review of Systems Constitutional: Reports: Anorexia. Denies: Fever HEENT: Reports: Difficulty Swallowing Cardiovascular: Denies: Chest Pain Respiratory: Denies: Cough Gastrointestinal: Reports: Abdominal Pain. Denies: Constipation, Diarrhea, Nausea, Vomiting Genitourinary: Denies: Dysuria Neurological: Denies: Balance problems Psychiatric: Denies: Anxiety Hematologic/ Lymphatic: Denies: Anemia Patient Problems: Active and Suspected Problems Dehydration (Acute) Dysphasia (Acute) Colitis (Acute) - Physical Exam Vitals/I&O's: Vital Signs Temp Pulse Resp BP Pulse Ox 97.9 F 57 L 18 121/72 H 100 08/11/19 09:34 08/11/19 09:34 08/11/19 09:34 08/11/19 09:34 08/11/19 09:34 Oxygen Delivery Method Room Air Weight: 281 lb 1.43 oz Body Mass Index (BMI) 37.0 Intake and Output for Last 24 Hours 08/09/19 08/10/19 08/11/19 23:59 23:59 23:59 Intake Total 1732.5 / 2032.5 2225.0 / 2225.0 Output Total 950 / 950 Balance 1732.5 / 1082.5 1275.0 / 1275.0 General: Alert, Oriented x3 Neck: No JVD Lungs: Normal air movement Cardiovascular: Regular rate, Regular Rhythm Abdomen: Soft, Non-Distended Skin: No rashes Neurological: Cranial nerves II-XII grossly intact Psych/Mental Status: Normal Affect Laboratory Results 08/11/19 05:50: WBC 5.2, RBC 4.94, Hgb 14.0, Hct 42.1, MCV 85.2, MCH 28.3, MCHC 33.3, RDW Std Deviation 43.3, RDW Coeff of Aurelio 14.1, Plt Count 169, MPV 11.6, Immature Gran % (Auto) 0.200, Neut % (Auto) 47.0, Lymph % (Auto) 34.1, [place] % (Auto) 13.4 H, Eos % (Auto) 4.5, Baso % (Auto) 0.8, Absolute Neuts (auto) 2.4, Absolute Lymphs (auto) 1.76, Nucleated RBC % 0 08/11/19 05:50: Sodium 139, Potassium 3.2 L, Chloride 109 H, Carbon Dioxide 17.0 L, Anion Gap 13, BUN 5 L, Creatinine 1.12, Estim Creat Clear Calc 114.94, Est GFR (MDRD) Af Amer 103, Est GFR (MDRD) Non-Af 85, BUN/Creatinine Ratio 4.5 L, Glucose 66 L, Calcium 8.3 L, Magnesium 1.6 Clinical Impression(s) from Imaging Studies Chest CT 08/10/19 10:03 IMPRESSION: 1. Bilateral basilar dependent atelectasis and/or airspace disease. 2. Hepatic steatosis. 3. Possible colitis. Electronically Signed: Mary Beth Thompson MD at 10:58 EST , Service support , Abdomen CT 08/10/19 18:55 IMPRESSION: Fatty infiltration of the liver. Electronically Signed: Funmi Booker MD at 19:34 EST Tel , Service support , Current Medications Acetaminophen (Tylenol) 650 mg PO Q6H PRN PRN PRN Reason: Pain Score 1-3/Temp > 100.7 F Al Hydroxide/Mg Hydroxide (Mylanta Ii) 30 ml PO Q6H PRN PRN PRN Reason: Gastric Burning Sodium Chloride () 1,000 mls @ 150 mls/hr IV .Q6H40M [facility] Stop: 08/11/19 22:55 Last Infusion: 08/11/19 05:39 Dose: 0 mls/hr Documented by: Ciprofloxacin (Cipro) 400 mg in 200 mls @ 200 mls/hr IV Q12 [facility] Last Admin: 08/11/19 09:54 Dose: 200 mls/hr Documented by: Metronidazole (Flagyl) 500 mg in 100 mls @ 100 mls/hr IV Q8 [facility] Last Infusion: 08/11/19 07:02 Dose: Infused Documented by: Pantoprazole Sodium 40 mg/ (Sodium Chloride) 110 mls @ 330 mls/hr IV Q12 [facility] Last Infusion: 08/11/19 09:55 Dose: Infused Documented by: Magnesium Hydroxide (Milk Of Magnesia) 30 ml PO DAILY PRN PRN PRN Reason: Constipation Melatonin (Melatonin) 3 mg PO QHS PRN PRN PRN Reason: INSOMNIA Morphine Sulfate () 4 mg IV Q3H PRN PRN PRN Reason: Pain Score 6-10/10 Nutritional Formula (Lactose Free) (Ensure Enlive) 120 ml PO 4X/DAY [facility] Last Admin: 08/10/19 21:09 Dose: 120 ml Documented by: Ondansetron HCl (Zofran) 4 mg IV Q8H PRN PRN PRN Reason: NAUSEA/VOMITING Last Admin: 08/10/19 17:35 Dose: 4 mg Documented by: Oxycodone HCl (Oxyir) 5 mg PO Q4H PRN PRN PRN Reason: Pain Score 4-5/10 Potassium Chloride (K-Dur) 20 meq PO BIDCM [facility] Promethazine HCl (Phenergan) 25 mg IM Q6H PRN PRN PRN Reason: Breakthrough nausea/vomiting Last Admin: 08/10/19 19:52 Dose: 25 mg Documented by: Sodium Chloride () 10 - 40 ml IV UD PRN PRN Reason: SALINE FLUSH Last Admin: 08/10/19 19:12 Dose: 10 ml Documented by: Throat Lozenges (Cepacol Sore Throat Lozenge) 1 lozenge MUCOUS MEM Q2H PRN PRN PRN Reason: Sore throat or cough Assessment/Plan All Active Problems No significant past medical history (Acute) Dehydration (Acute) Dysphasia (Acute) Colitis (Acute) 24-year-old male with dysphasia 1. The patient reports that he coughed up blood and he says that he burped up blood. He says that yesterday he awoke with blood in his mouth. He has been having difficulty swallowing and he reports weight loss. He is also been having abdominal pain and he was seen by another doctor last week who recommended endoscopy. He had a CT scan of his chest when he first came in which suggested colitis in his upper abdomen. I repeated a CT scan with oral contrast yesterday of his abdomen and pelvis which showed some fat in the wall of his colon suggestive of prior inflammation but no active colitis as it seems. If there is no malignancy identified. 2. Plan for EGD tomorrow. I have made the patient n.p.o. after midnight. Marlon Moreno MD Pager: [facility] [address] [place] [address] [address] [place] [address] Office:
[2019-08-11 14:57] VITALS: BP 121/62; PULSE 52; RESP 18; TEMP 36.6; O2SAT 99
[2019-08-11 20:34] VITALS: BP 127/79; PULSE 50; RESP 16; TEMP 36.5; O2SAT 100
[2019-08-11 21:14] VITALS: BMI 37.2
[2019-08-12] VITALS (11 sets, daily range): BP systolic 107–146; BP diastolic 57–78; PULSE 52–77; RESP 16–18; TEMP 36.4–36.8; O2SAT 95–100; BMI 37.2
--- NOTE | 2019-08-12 | GASB_PTH ---
PATIENT: ALDAIR YEPEZ LOC: MS3 U#:[id number] AGE/SX: 24/M ROOM: AR316 RE08/10/[address]: Dr. Tori Degroot MD : [id number] BED: 1 DIS: 08/13/2019 SPEC #: [id number] RECD: 08/13/19 08:46 STATUS: ALEX REQ #: [id number] MYRON: 08/12/19 00:[address]: Marlon Moreno DEPT: SURGICAL PATHOLOGY RECD BY: Guanakito Yepez ENTERED: 08/13/19 08:46 SP TYPE: Gastric Bx OTHR DR: MD Dr. Tori Cisneros MD Dr. Bruce Arthur, MD Dr. Christophe Bursley, MD Dr. David Kittoe, MD Tissues: Gastric mucous membrane Procedures: Surgery Specimen Level IV Comments: @ Ordering doctor for SUIV edited from to @ by DANNA at 08/13/19 1438 @ Submitting doctor edited from to @ by KWASIOD at 08/13/19 1438 HEADER OPERATION: EGD ([facility]) PRE-OP DIAGNOSIS: Dysphagia TISSUE SUBMITTED: Antral biopsy for H. pylori and pathology MICROSCOPIC DIAGNOSIS Antral biopsy: Fragments of gastric mucosa with minimal chronic inflammation. See comment. ERNESTO:silvia 08/14/19 COMMENT The results of immunohistochemistry for Helicobacter pylori will be reported separately ([id number]). MICROSCOPIC DESCRIPTION Slides are reviewed. GROSS DESCRIPTION Received in fixative is one container labeled with the patient's name and designated antral biopsy. The specimen consists of two irregular fragments of light tian soft tissue that in aggregate measure 0.5 x 0.3 x 0.1 cm. The specimen is totally submitted in one cassette. / ERNESTO:silvia 08/13/19 TC:3 CPT: 27499
[2019-08-12] MEDS: 0.9% Normal Saline 1,000 ML 150 ML IV (04:53)
[2019-08-12] MEDS: metroNIDAZOLE 500 MG/100 ML BAG 100 MG IV ×3 (04:53→22:10)
[2019-08-12 06:17] LABS: Absolute Lymphocyte Count 1.59 X10^3/uL (0.83-4.51); Absolute Neutrophil Count 2.6 X10^3/uL (2.0-7.7); Basophil# 0.03 X10^3/uL; Basophil% 0.6 % (0-1); Eosinophil# 0.24 X10^3/uL; Eosinophils% 4.7 % (0-5); Hematocrit 41.5 % (40-54); Lymphocyte # 1.59 X10^3/ul (4.0); Lymphocyte % 30.8 % (19-41); Mean Corp Hgb Conc 33.7 g/dL (32-36); Mean Corpuscular Hgb 28.8 pg (27.0-32.0); Mean Corpuscular Volume 85.4 fL (80-94); Mean Platelet Vol. 11.6 fl (6.2-12.0); Monocyte# 0.65 X10^3/uL; Monocyte% 12.6 % (0-10); NRBC Flagged by Analyzer 0 % (0-5); Neutrophil # 2.63 X10^3/uL (2.7-7.7); Neutrophil % 50.9 % (47-70); Platelet Count 163 K/mm3 (150-450); RBC Distribution Width CV 14.2 % (11.6-14.6); RBC Distribution Width SD 43.8 fl (35.1-43.9); Red Blood Count 4.86 M/mm3 (4.6-6.2); White Blood Count 5.2 K/mm3 (4.4-11.0)
[2019-08-12 06:35] LABS: International Normalized Ratio 1.2; Prothrombin Time (Protime)PT. 14.9 SECONDS (11.7-14.9)
[2019-08-12 06:36] LABS: Partial Thromboplast Time 35.7 Seconds (24.1-36.2)
[2019-08-12 06:41] LABS: Anion Gap 9 (5-15); BUN 5 mg/dL (7-18); BUN/Creat Ratio 4.6 RATIO (10-20); Calcium,Total 8.2 mg/dL (8.5-10.1); Chloride 114 mmol/L (98-107); Creatinine, Serum 1.09 mg/dL (0.70-1.30); EST Glomerular Filtration Rate 88 mL/min (>60); Est Glom Filt Rate - Afr Amer 106 mL/min (>60); Glucose 78 mg/dL (74-106); Potassium 3.3 mmol/L (3.5-5.1); Sodium Level 142 mmol/L (136-145)
--- NOTE | 2019-08-12 08:46 | PCM.PN.SRG ---
Patient Problems: Active and Suspected Problems Dehydration (Acute) Dysphasia (Acute) Colitis (Acute) Subjective: No changes overnight - Physical Exam Vitals/I&O's: Vital Signs Temp Pulse Resp BP Pulse Ox 97.6 F L 56 L 16 107/57 L 98 08/12/19 03:22 08/12/19 03:22 08/12/19 03:22 08/12/19 03:22 08/12/19 08:32 Oxygen Delivery Method Room Air Weight: 281 lb 1.43 oz Body Mass Index (BMI) 37.2 Intake and Output for Last 24 Hours 08/10/19 08/11/19 08/12/19 23:59 23:59 23:59 Intake Total 1732.5 / 2032.5 4842.5 / 4842.5 882.5 / 882.5 Output Total 1500 / 1500 Balance 1732.5 / 1082.5 3342.5 / 3342.5 882.5 / 882.5 General: Alert, Oriented x3 Abdomen: Soft, Non Tender, Non-Distended Laboratory Results 08/12/19 05:26: WBC 5.2, RBC 4.86, Hgb 14.0, Hct 41.5, MCV 85.4, MCH 28.8, MCHC 33.7, RDW Std Deviation 43.8, RDW Coeff of Aurelio 14.2, Plt Count 163, MPV 11.6, Immature Gran % (Auto) 0.400, Neut % (Auto) 50.9, Lymph % (Auto) 30.8, [place] % (Auto) 12.6 H, Eos % (Auto) 4.7, Baso % (Auto) 0.6, Absolute Neuts (auto) 2.6, Absolute Lymphs (auto) 1.59, Nucleated RBC % 0 08/12/19 05:26: Sodium 142, Potassium 3.3 L, Chloride 114 H, Carbon Dioxide 19.0 L, Anion Gap 9, BUN 5 L, Creatinine 1.09, Estim Creat Clear Calc 114.70, Est GFR (MDRD) Af Amer 106, Est GFR (MDRD) Non-Af 88, BUN/Creatinine Ratio 4.6 L, Glucose 78, Calcium 8.2 L 08/12/19 05:26: PT 14.9, INR 1.2, APTT 35.7 Current Medications Acetaminophen (Tylenol) 650 mg PO Q6H PRN PRN PRN Reason: Pain Score 1-3/Temp > 100.7 F Al Hydroxide/Mg Hydroxide (Mylanta Ii) 30 ml PO Q6H PRN PRN PRN Reason: Gastric Burning Ciprofloxacin (Cipro) 400 mg in 200 mls @ 200 mls/hr IV Q12 [facility] Last Infusion: 08/11/19 22:28 Dose: Infused Documented by: Metronidazole (Flagyl) 500 mg in 100 mls @ 100 mls/hr IV Q8 [facility] Last Infusion: 08/12/19 05:53 Dose: Infused Documented by: Pantoprazole Sodium 40 mg/ (Sodium Chloride) 110 mls @ 330 mls/hr IV Q12 [facility] Last Infusion: 08/11/19 21:27 Dose: Infused Documented by: Magnesium Hydroxide (Milk Of Magnesia) 30 ml PO DAILY PRN PRN PRN Reason: Constipation Melatonin (Melatonin) 3 mg PO QHS PRN PRN PRN Reason: INSOMNIA Morphine Sulfate () 4 mg IV Q3H PRN PRN PRN Reason: Pain Score 6-10/10 Nutritional Formula (Lactose Free) (Ensure Enlive) 120 ml PO 4X/DAY [facility] Last Admin: 08/11/19 20:39 Dose: Not Given Documented by: Ondansetron HCl (Zofran) 4 mg IV Q8H PRN PRN PRN Reason: NAUSEA/VOMITING Last Admin: 08/10/19 17:35 Dose: 4 mg Documented by: Oxycodone HCl (Oxyir) 5 mg PO Q4H PRN PRN PRN Reason: Pain Score 4-5/10 Potassium Chloride (K-Dur) 20 meq PO BIDCM [facility] Last Admin: 08/12/19 08:03 Dose: 20 meq Documented by: Promethazine HCl (Phenergan) 25 mg IM Q6H PRN PRN PRN Reason: Breakthrough nausea/vomiting Last Admin: 08/10/19 19:52 Dose: 25 mg Documented by: Sodium Chloride () 10 - 40 ml IV UD PRN PRN Reason: SALINE FLUSH Last Admin: 08/10/19 19:12 Dose: 10 ml Documented by: Throat Lozenges (Cepacol Sore Throat Lozenge) 1 lozenge MUCOUS MEM Q2H PRN PRN PRN Reason: Sore throat or cough Medical Necessity - Tobacco Use Smoking Status: Never smoker Assessment/Plan All Active Problems No significant past medical history (Acute) Dehydration (Acute) Dysphasia (Acute) Colitis (Acute) 24-year-old male with dysphagia 1. Patient in no changes overnight. Plan for EGD today. 2. I explained endoscopy in detail to the patient. I explained the risks including but not limited to stroke or heart attack with anesthesia, perforation of the GI tract, bleeding, infection. I explained that any of these could necessitate further emergency surgery. The patient understands and all questions were answered sufficiently. The patient wishes to proceed with procedure. Marlon Moreno MD Pager: [facility] [address] [place] [address] [address] [place] [address] Office:
[2019-08-12] MEDS: Ciprofloxacin 400 MG/200 ML BAG 200 MG IV ×2 (11:03→23:30)
--- NOTE | 2019-08-12 11:20 | CASEMGMT ---
RN LONI Face to Face with patient for initial transition planning/care coordination assessment. RN CM introduced self and role at [facility]. Patient lying in bed, alert and oriented, at bedside. Patient willing to participate in assessment and is able to answer all questions appropriately. Care providers, pharmacy, and demographics verified. Patient wishes to discharge home, denies need for home health at this time. Patient states he has no further needs or concerns at this time. CM to follow for discharge planning needs that may arise. PCP: [place] Specialists: none Preferred Pharmacy: [facility] Insurance: [employer] [facility] Prescription Benefit: yes Living Will/HPOA: none LNOK: Living Arrangements: Patient lives with in 2 story home. 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 Disposition Plan: Patient to discharge home with family support and follow-up plans in place. Enma GLORIA, RN, CM
[2019-08-12] MEDS: 0.9% Normal Saline 1,000 ML 125 ML IV (13:25)
--- NOTE | 2019-08-12 14:48 | OP.EGD_ITS ---
Patient Name: Jayden Gale Procedure Date: 08/12/2019 2:32 PM Date of : 1995 Age: 24 Procedure: Upper GI endoscopy Indications: Dysphagia Providers: Marlon Moreno MD Referring MD: Kaleb Junior Medicines: Monitored Anesthesia Care Patient Profile: This is a 24 year old male. Refer to note in patient chart for documentation of history and physical. Complications: No immediate complications. Estimated blood loss: Minimal. Procedure: Pre-Anesthesia Assessment: - Prior to the procedure, a History and Physical was performed, and patient medications and allergies were reviewed. The patient's tolerance of previous anesthesia was also reviewed. The risks and benefits of the procedure and the sedation options and risks were discussed with the patient. All questions were answered, and informed consent was obtained. Prior Anticoagulants: The patient has taken no previous anticoagulant or antiplatelet agents. After reviewing the risks and benefits, the patient was deemed in satisfactory condition to undergo the procedure. After obtaining informed consent, the endoscope was passed under direct vision. Throughout the procedure, the patient's blood pressure, pulse, and oxygen saturations were monitored continuously. The gastroscope was introduced through the mouth, and advanced to the third part of duodenum. The upper GI endoscopy was accomplished without difficulty. The patient tolerated the procedure well. Scope In: 2:42:32 PM Scope Out: 2:45:54 PM Total Procedure Duration Time 0 hours 3 minutes 22 seconds Findings: The esophagus was normal. The stomach was normal. The examined duodenum was normal. Biopsies were taken with a cold forceps in the gastric antrum for Helicobacter pylori testing. Impression: - Normal esophagus. - Normal stomach. - Normal examined duodenum. - Biopsies were taken with a cold forceps for Helicobacter pylori testing. Recommendation: - [facility]. - Resume previous diet. - Continue present medications. Procedure Code(s): --- Professional --- 23977, Esophagogastroduodenoscopy, flexible, transoral; with biopsy, single or multiple Diagnosis Code(s): --- Professional --- R13.10, Dysphagia, unspecified CPT copyright 2017 [employer]. All rights reserved. The codes documented in this report are preliminary and upon practice billing associate review may be revised to meet current compliance requirements. Marlon Moreno MD 08/12/2019 2:48:26 PM This report has been signed electronically. Number of Addenda: 0 Note Initiated On: 08/12/2019 2:32 PM
--- NOTE | 2019-08-12 14:49 | OP.CCLET_ITS ---
08/12/2019 Kaleb Junior Re : Upper GI endoscopy procedure for Jayden Junior This procedure was performed on Monday, August 12, 2019. My impressions and recommendations are as follows: Impressions : - Normal esophagus. - Normal stomach. - Normal examined duodenum. - Biopsies were taken with a cold forceps for Helicobacter pylori testing. Recommendations : - Return patient to [facility] for [facility] care. - Resume previous diet. - Continue present medications. My findings are described in the full procedure note, which is enclosed. If I can be of further assistance, please feel free to contact me at Doctor phone number(s): , Work: . Sincerely, Marlon Moreno MD 08/12/2019 2:48:26 PM This report has been signed electronically.
--- NOTE | 2019-08-12 14:59 | PN_ITS ---
Patient Problems: Active and Suspected Problems Colitis (Acute) Reason for Visit: Follow-up on possible GI bleed Subjective: Patient was seen and examined. He denied any more coughing up blood. No melena or hematochezia. Denied any fever or chills. He has slight epigastric discomfort. He had an EGD today which was normal. Vitals/I&O's: Vital Signs Temp Pulse Resp BP Pulse Ox 98.1 F 77 16 146/68 H 100 08/12/19 13:20 08/12/19 13:20 08/12/19 13:20 08/12/19 13:20 08/12/19 13:20 Oxygen Delivery Method Room Air Weight: 127.5 kg Body Mass Index (BMI) 37.2 Intake and Output for Last 24 Hours 08/10/19 08/11/19 08/12/19 23:59 23:59 23:59 Intake Total 1732.5 / 2032.5 4842.5 / 4842.5 Output Total 1500 / 1500 Balance 1732.5 / 1082.5 3342.5 / 3342.5 General: Alert, Oriented x3, Cooperative, No apparent distress HEENT: Atraumatic, PERRLA, EOMI, Normocephalic Oral: Moist Mucosa Neck: Supple Lungs: Clear to auscultation, Normal air movement Cardiovascular: Regular rate, Regular Rhythm, Normal S1, Normal S2, No murmurs Abdomen: Bowel Sounds Present, Soft, Non Tender, Non-Distended, No Hepato- splenomegaly Extremities: No edema Skin: No rashes, No breakdown Musculoskeletal: No Tenderness to Palpation of Joints or Extremities Lymphatic: No Cervical, Supraclavicular, or Inguinal Adenopathy Neurological: Cranial nerves II-XII grossly intact, Neuro grossly intact Psych/Mental Status: Normal Affect, Appropriate Laboratory Results 08/12/19 05:26: WBC 5.2, RBC 4.86, Hgb 14.0, Hct 41.5, MCV 85.4, MCH 28.8, MCHC 33.7, RDW Std Deviation 43.8, RDW Coeff of Aurelio 14.2, Plt Count 163, MPV 11.6, Immature Gran % (Auto) 0.400, Neut % (Auto) 50.9, Lymph % (Auto) 30.8, [place] % (Auto) 12.6 H, Eos % (Auto) 4.7, Baso % (Auto) 0.6, Absolute Neuts (auto) 2.6, Absolute Lymphs (auto) 1.59, Nucleated RBC % 0 08/12/19 05:26: Sodium 142, Potassium 3.3 L, Chloride 114 H, Carbon Dioxide 19.0 L, Anion Gap 9, BUN 5 L, Creatinine 1.09, Estim Creat Clear Calc 114.70, Est GFR (MDRD) Af Amer 106, Est GFR (MDRD) Non-Af 88, BUN/Creatinine Ratio 4.6 L, Glucose 78, Calcium 8.2 L 08/12/19 05:26: PT 14.9, INR 1.2, APTT 35.7 Current Medications Acetaminophen (Tylenol) 650 mg PO Q6H PRN PRN PRN Reason: Pain Score 1-3/Temp > 100.7 F Al Hydroxide/Mg Hydroxide (Mylanta Ii) 30 ml PO Q6H PRN PRN PRN Reason: Gastric Burning Ciprofloxacin (Cipro) 400 mg in 200 mls @ 200 mls/hr IV Q12 [facility] Last Infusion: 08/12/19 12:20 Dose: Infused Documented by: Metronidazole (Flagyl) 500 mg in 100 mls @ 100 mls/hr IV Q8 [facility] Last Infusion: 08/12/19 14:17 Dose: Infused Documented by: Pantoprazole Sodium 40 mg/ (Sodium Chloride) 110 mls @ 330 mls/hr IV Q12 [facility] Last Infusion: 08/12/19 11:03 Dose: Infused Documented by: Sodium Chloride () 1,000 mls @ 125 mls/hr IV .Q8H [facility] Stop: 08/12/19 20:34 Last Infusion: 08/12/19 13:27 Dose: 0 mls/hr Documented by: Magnesium Hydroxide (Milk Of Magnesia) 30 ml PO DAILY PRN PRN PRN Reason: Constipation Melatonin (Melatonin) 3 mg PO QHS PRN PRN PRN Reason: INSOMNIA Morphine Sulfate () 4 mg IV Q3H PRN PRN PRN Reason: Pain Score 6-10/10 Nutritional Formula (Lactose Free) (Ensure Enlive) 120 ml PO 4X/DAY [facility] Last Admin: 08/12/19 12:20 Dose: Not Given Documented by: Ondansetron HCl (Zofran) 4 mg IV Q8H PRN PRN PRN Reason: NAUSEA/VOMITING Last Admin: 08/10/19 17:35 Dose: 4 mg Documented by: Oxycodone HCl (Oxyir) 5 mg PO Q4H PRN PRN PRN Reason: Pain Score 4-5/10 Potassium Chloride (K-Dur) 20 meq PO BIDCM [facility] Last Admin: 08/12/19 08:03 Dose: 20 meq Documented by: Promethazine HCl (Phenergan) 25 mg IM Q6H PRN PRN PRN Reason: Breakthrough nausea/vomiting Last Admin: 08/10/19 19:52 Dose: 25 mg Documented by: Sodium Chloride () 10 - 40 ml IV UD PRN PRN Reason: SALINE FLUSH Last Admin: 08/10/19 19:12 Dose: 10 ml Documented by: Throat Lozenges (Cepacol Sore Throat Lozenge) 1 lozenge MUCOUS MEM Q2H PRN PRN PRN Reason: Sore throat or cough STROKE Vital Signs/Narrative: Vital Signs Temp Pulse Resp BP Pulse Ox 08/12/19 13:20 98.1 F 77 16 146/68 H 100 Medical Necessity - Tobacco Use Smoking Status: Never smoker Assessment/Plan All Active Problems No significant past medical history (Acute) Dehydration (Acute) Dysphasia (Acute) Colitis (Acute) 1. Hematemesis/hemoptysis, unclear etiology, Status post EGD on 08/12/19, normal. Status post recent laryngoscopy 2 days prior to admission that was normal Patient follows up with ENT in the outpatient, will likely be followed up by them 2. Colitis, seen on CT of the abdomen, diarrhea noted, on empiric antibiotics - Cipro and Flagyl Will need to be followed up in the outpatient 3. Acute kidney injury, pre-renal, likely secondary to dehydration Creatinine improved from 1.31-1.09 Will continue on IVF, repeat blood work in am 4. Hypokalemia, replaced, recheck in a.m. 5. Hepatic steatosis secondary to obesity, lifestyle modification recommended 6. Obesity with BMI of 36.6, weight loss advised 7. DVT prophylaxis -encourage early ambulation Code Visit Inpatient E&M: 62951 Subs Hosp L2
--- NOTE | 2019-08-12 15:00 | IMM_PTH ---
PATIENT: ALDAIR YEPEZ LOC: MS3 U#:[id number] AGE/SX: 24/M ROOM: LA316 RE08/10/[address]: Dr. Tori Degroot MD : 1995 BED: 1 DIS: 08/13/2019 SPEC #: [id number] RECD: 08/13/19 12:30 STATUS: ALEX REQ #: [id number] MYRON: 08/12/19 15:[address]: Marlon Moreno DEPT: IMMUNOHISTOCHEMISTRY RECD BY: Helen Villanueva ENTERED: 08/13/19 12:30 SP TYPE: IMMUNO OTHR DR: MD Dr. Lam Noonan MD Dr. Christophe Bursley, MD Dr. David Kittoe, MD Tissues: Stomach, NOS Procedures: H Pylori (initial) PHYSICIAN & INSTITUTION [place] [address] SPECIMEN INFORMATION: Tissue Source: Antral biopsy Clinical Info: Dysphagia Specimen Number: [id number] CPT code: 41346 METHODOLOGY: Deparaffinized sections of prefer/formalin-fixed tissue or PAP/DQ stained slides are incubated with monoclonal/polyclonal antibodies/oligonucleotide probes. Localization is made via biotin free immunoperoxidase method. Appropriate controls are performed and reacted as expected. Results on target cell population are indicated in the following table: RESULTS: ANTIBODY / CLONE RESULT H Pylori (polyclonal) negative These tests were developed and their performance characteristics determined by [facility]. They may not have been cleared or approved by the U.S. Food and Drug Administration. The FDA has determined that such clearance or approval is not necessary. INTERPRETATION: Antral biopsy: Negative for Helicobacter pylori organisms. SJ:silvia 08/15/19
[2019-08-12 17:14] LABS: Color, Urine Yellow (Yellow); Glucose, Dipstick Normal (Normal); Leukocyte Esterase-Dipstick 25 /ul (Negative); Nitrite-Dipstick Negative (Negative); Occult Blood-Urine Negative /ul (Negative); Protein-Dipstick Negative (Negative); Specific Gravity, Urine 1.025 (1.002-1.030); Urine Bilirubin Dipstick Negative (Negative); Urine Clarity Sl. Cloudy (Clear); Urine Urobilinogen Normal (Normal)
[2019-08-12 17:24] LABS: Ketone-Dipstick 150 mg/dl (Negative)
[2019-08-13 03:45] VITALS: BP 111/51; PULSE 56; RESP 16; TEMP 36.4; O2SAT 97
[2019-08-13] MEDS: metroNIDAZOLE 500 MG/100 ML BAG 100 MG IV (05:06)
[2019-08-13 06:09] LABS: Absolute Lymphocyte Count 1.83 X10^3/uL (0.83-4.51); Absolute Neutrophil Count 2.2 X10^3/uL (2.0-7.7); Basophil# 0.03 X10^3/uL; Basophil% 0.6 % (0-1); Eosinophil# 0.24 X10^3/uL; Eosinophils% 4.9 % (0-5); Hematocrit 40.7 % (40-54); Hemoglobin 13.6 g/dL (13.0-16.5); Lymphocyte # 1.83 X10^3/ul (4.0); Lymphocyte % 37.4 % (19-41); Mean Corp Hgb Conc 33.4 g/dL (32-36); Mean Corpuscular Hgb 28.4 pg (27.0-32.0); Mean Platelet Vol. 11.5 fl (6.2-12.0); Monocyte# 0.58 X10^3/uL; Monocyte% 11.9 % (0-10); NRBC Flagged by Analyzer 0 % (0-5); Platelet Count 154 K/mm3 (150-450); RBC Distribution Width CV 14.3 % (11.6-14.6); RBC Distribution Width SD 44.1 fl (35.1-43.9); Red Blood Count 4.79 M/mm3 (4.6-6.2); White Blood Count 4.9 K/mm3 (4.4-11.0)
[2019-08-13 06:31] LABS: AST(SGOT) 22 U/L (15-37); Alanine Aminotransfer ALT/SGPT 46 U/L (16-61); Albumin, Serum 2.9 g/dL (3.2-5.0); Alkaline Phosphatase 62 U/L (45-117); Anion Gap 8 (5-15); BUN 2 mg/dL (7-18); BUN/Creat Ratio 2.1 RATIO (10-20); Calcium,Total 8.3 mg/dL (8.5-10.1); Chloride 115 mmol/L (98-107); Creatinine, Serum 0.95 mg/dL (0.70-1.30); EST Glomerular Filtration Rate 103 mL/min (>60); Est Glom Filt Rate - Afr Amer 124 mL/min (>60); Globulin 2.8 g/dL (2.2-4.2); Glucose 90 mg/dL (74-106); Potassium 3.2 mmol/L (3.5-5.1); Protein, Total 5.7 g/dL (6.4-8.2); Sodium Level 144 mmol/L (136-145)
--- NOTE | 2019-08-13 07:43 | PCM.PN.HOSP ---
Reason for Visit: Follow-up on blood in mouth, colitis Subjective: Patient was seen and examined. Denied any new complaints. Had an episode of nausea this monitor resolved. He was able to complete his breakfast. No more abdominal pain or fever or chills. Objective: Physical exam: General: Alert, Oriented x3, Cooperative, No apparent distress HEENT: Atraumatic, PERRLA, EOMI, Normocephalic Oral: Moist Mucosa Neck: Supple Lungs: Clear to auscultation, Normal air movement Cardiovascular: Regular rate, Regular Rhythm, Normal S1, Normal S2, No murmurs Abdomen: Bowel Sounds Present, Soft, Non Tender, Non-Distended, No Hepato-splenomegaly Extremities: No edema Skin: No rashes, No breakdown Musculoskeletal: No Tenderness to Palpation of Joints or Extremities Lymphatic: No Cervical, Supraclavicular, or Inguinal Adenopathy Neurological: Cranial nerves II-XII grossly intact, Neuro grossly intact Psych/Mental Status: Normal Affect, Appropriate Vitals/I&O's: Vital Signs Temp Pulse Resp BP Pulse Ox 97.5 F L 56 L 16 111/51 L 97 08/13/19 03:45 08/13/19 03:45 08/13/19 03:45 08/13/19 03:45 08/13/19 03:45 Oxygen Delivery Method Room Air Weight: 127.5 kg Body Mass Index (BMI) 37.2 Intake and Output for Last 24 Hours 08/11/19 08/12/19 08/13/19 23:59 23:59 23:59 Intake Total 4842.5 / 4842.5 3987.50 / 3987.50 500 / 500 Output Total 1500 / 1500 Balance 3342.5 / 3342.5 3987.50 / 3987.50 500 / 500 Laboratory Results 08/12/19 16:55: Urine Color Yellow, Urine Clarity Sl. Cloudy, Urine pH 5.0, Ur Specific [place] 1.025, Urine Protein Negative, Urine Glucose (UA) Normal, Urine Ketones 150 H, Urine Occult Blood Negative, Urine Nitrite Negative, Urine Bilirubin Negative, Urine Urobilinogen Normal, Ur Leukocyte Esterase 25 H 08/13/19 05:34: WBC 4.9, RBC 4.79, Hgb 13.6, Hct 40.7, MCV 85.0, MCH 28.4, MCHC 33.4, RDW Std Deviation 44.1 H, RDW Coeff of Aurelio 14.3, Plt Count 154, MPV 11.5, Immature Gran % (Auto) 0.200, Neut % (Auto) 45.0 L, Lymph % (Auto) 37.4, [place] % (Auto) 11.9 H, Eos % (Auto) 4.9, Baso % (Auto) 0.6, Absolute Neuts (auto) 2.2, Absolute Lymphs (auto) 1.83, Nucleated RBC % 0 08/13/19 05:34: Sodium 144, Potassium 3.2 L, Chloride 115 H, Carbon Dioxide 21.0, Anion Gap 8, BUN 2 L, Creatinine 0.95, Estim Creat Clear Calc 131.60, Est GFR (MDRD) Af Amer 124, Est GFR (MDRD) Non-Af 103, BUN/Creatinine Ratio 2.1 L, Glucose 90, Calcium 8.3 L, Total Bilirubin 0.40, AST 22, ALT 46, Alkaline Phosphatase 62, Total Protein 5.7 L, Albumin 2.9 L, Globulin 2.8, Albumin/Globulin Ratio 1.0 08/13/19 05:34: SERGEI Screen Pending, MARY ALICE-1 Antibody Pending, SS-A/Ro IgG Antibody Pending, SS-B/La IgG Antibody Pending, Sm (Covarrubias) Antibody Pending, SLEEVE IRONER Antibody Pending, Scl-70 Scleroderma Ab Pending, Double Strand DNA Ab Pending, Centromere B Antibody Pending 08/13/19 05:34: c-ANCA Antibody Pending, p-ANCA Antibody Pending Current Medications Acetaminophen (Tylenol) 650 mg PO Q6H PRN PRN PRN Reason: Pain Score 1-3/Temp > 100.7 F Al Hydroxide/Mg Hydroxide (Mylanta Ii) 30 ml PO Q6H PRN PRN PRN Reason: Gastric Burning Ciprofloxacin (Cipro) 400 mg in 200 mls @ 200 mls/hr IV Q12 [facility] Last Infusion: 08/13/19 00:33 Dose: Infused Documented by: Metronidazole (Flagyl) 500 mg in 100 mls @ 100 mls/hr IV Q8 [facility] Last Infusion: 08/13/19 06:06 Dose: Infused Documented by: Pantoprazole Sodium 40 mg/ (Sodium Chloride) 110 mls @ 330 mls/hr IV Q12 [facility] Last Infusion: 08/12/19 22:00 Dose: Infused Documented by: Magnesium Hydroxide (Milk Of Magnesia) 30 ml PO DAILY PRN PRN PRN Reason: Constipation Melatonin (Melatonin) 3 mg PO QHS PRN PRN PRN Reason: INSOMNIA Morphine Sulfate () 4 mg IV Q3H PRN PRN PRN Reason: Pain Score 6-10/10 Nutritional Formula (Lactose Free) (Ensure Enlive) 120 ml PO 4X/DAY [facility] Last Admin: 08/12/19 21:44 Dose: Not Given Documented by: Ondansetron HCl (Zofran) 4 mg IV Q8H PRN PRN PRN Reason: NAUSEA/VOMITING Last Admin: 08/10/19 17:35 Dose: 4 mg Documented by: Oxycodone HCl (Oxyir) 5 mg PO Q4H PRN PRN PRN Reason: Pain Score 4-5/10 Potassium Chloride (K-Dur) 20 meq PO BIDCM [facility] Last Admin: 08/12/19 18:53 Dose: 20 meq Documented by: Promethazine HCl (Phenergan) 25 mg IM Q6H PRN PRN PRN Reason: Breakthrough nausea/vomiting Last Admin: 08/10/19 19:52 Dose: 25 mg Documented by: Sodium Chloride () 10 - 40 ml IV UD PRN PRN Reason: SALINE FLUSH Last Admin: 08/10/19 19:12 Dose: 10 ml Documented by: Throat Lozenges (Cepacol Sore Throat Lozenge) 1 lozenge MUCOUS MEM Q2H PRN PRN PRN Reason: Sore throat or cough STROKE Vital Signs/Narrative: Vital Signs Temp Pulse Resp BP Pulse Ox 08/13/19 03:45 97.5 F L 56 L 16 111/51 L 97 Medical Necessity - Tobacco Use Smoking Status: Never smoker Assessment/Plan All Active Problems Cough with hemoptysis (Acute) No significant past medical history (Acute) Dehydration (Acute) Dysphasia (Acute) Colitis (Acute) 1. Hematemesis/hemoptysis, unclear etiology, Status post EGD on 08/12/19, normal. Status post recent laryngoscopy 2 days prior to admission that was normal Patient follows up with ENT in the outpatient, neurology consulted, will follow-up in the outpatient. 2. Colitis, seen on CT of the abdomen, diarrhea noted, on empiric antibiotics - Cipro and Flagyl Will need to be followed up in the outpatient 3. Acute kidney injury, pre-renal, likely secondary to dehydration, resolved Creatinine improved from 1.31 to 0.95 4. Hypokalemia, replaced 5. Hepatic steatosis secondary to obesity, lifestyle modification recommended 6. Obesity with BMI of 36.6, weight loss advised 7. DVT prophylaxis -encourage early ambulation Code Visit Inpatient E&M: 55014 Subs Hosp L2
[2019-08-13] MEDS: 0.9% Saline Lock 10 ML Syringe IV (07:54)
[2019-08-13] MEDS: Ondansetron 4 MG/2 ML Vial IV (07:54)
[2019-08-13 08:02] VITALS: O2SAT 98
[2019-08-13 08:55] VITALS: BP 126/73; PULSE 52; RESP 16; TEMP 36.4; O2SAT 96
--- NOTE | 2019-08-13 10:52 | DCINST_ITS ---
- Discharge Diagnoses Current Active Problems: Current Active and Chronic Problems Colitis (Acute) Reason(s) for Visit for Discharge Instructions: Blood in the mouth You will use the following diet at home:: Regular Your food should be the consistency of: Regular Your liquids should be the consistency of: Regular/Thin Discharge Activity: Return to Normal Activity Additional Instructions: Complete your antibiotics. Follow-up with your primary doctor within 2 weeks. You will need a referral to see regional geodetic advisor. Continue to be active and limit your calorie intake to lose weight. Follow-up with the chainstitch seat joiner within 2 weeks Allergies/Adverse Reactions: Allergies No Known Allergies Allergy (Verified 08/10/19 08:49) Medications to take at Discharge Esomeprazole Magnesium [Nexium 24Hr] 20 mg PO DAILY 08/08/19 Acetaminophen [Tylenol Tablet] 650 mg PO Q6H PRN PRN tab 08/13/19 Ciprofloxacin [Cipro] 500 mg PO BID #8 tab 08/13/19 Metronidazole 500 mg PO TID 4 Days #12 tab 08/13/19 Potassium Chloride [Klor-Con M20] 20 meq PO BID 7 Days #14 tab.er.prt 08/13/19 The following prescriptions were given: Ciprofloxacin [Cipro] 500 mg PO BID #8 tab Transmission Status: Pending to [facility] Metronidazole 500 mg PO TID 4 Days #12 tab Transmission Status: Pending to [facility] Primary Care Physician: Kaleb Junior MD [Primary Care Provider] - Please follow up with your Primary Care Physician in: within 1-2 weeks Test Results: Test results from this visit will be discussed in further detail at your follow- up appointment, if applicable. Please Follow Up With: Lam Redd MD When: within 2 weeks Proposed Discharge Date: 08/13/19
[2019-08-13] MEDS: Ciprofloxacin 400 MG/200 ML BAG 200 MG IV (10:58)
--- NOTE | 2019-08-13 10:59 | DS.PCM_ITS ---
Discharge Date and Diagnosis Date of Admission: 08/10/19 Date of Discharge: 08/13/19 - Primary Discharge Diagnosis Active Problems Colitis (Acute) Hematemesis/hemoptysis, unclear etiology Acute kidney injury, prerenal secondary to dehydration Hypokalemia Hepatic steatosis Hospital Course and Treatment Imaging Results: Clinical Impression(s) from Imaging Studies Soft Tissue Neck CT 08/10/19 09:02 IMPRESSION: Nonspecific prominent nodes bilaterally which could be reactive. The exact etiology is undetermined at this time. Unremarkable airway. Electronically Signed: Chago Myles MD at 10:37 EST Tel , Service support , Chest CT 08/10/19 10:03 IMPRESSION: 1. Bilateral basilar dependent atelectasis and/or airspace disease. 2. Hepatic steatosis. 3. Possible colitis. Electronically Signed: Mary Beth Thompson MD at 10:58 EST , Service support , Abdomen CT 08/10/19 18:55 IMPRESSION: Fatty infiltration of the liver. Electronically Signed: Funmi Booker MD at 19:34 EST Tel , Service support , Pulmonology General surgery Operations: None Procedures: EGD Summary of Care Provided: The patient is a 24 year old M with no significant past medical history except for morbid obesity who comes in with complaints of blood in his mouth. Patient had complained of burping up blood in his mouth. He has been followed up recently by ENT similar complaints and found to have an abnormal esophagram. He had laryngoscopy done 2 days prior to that admission that was essentially unremarkable. Patient had another episode of blood in his mouth. He called the ENT and was asked to come to the emergency department. Patient's vitals were stable during the hospital stay. There were no episodes of hematemesis/hemoptysis in the hospital. General surgery was consulted for EGD. He had an EGD done on 08/12/19 which was unremarkable. Pulmonology was consulted on patient. Outpatient follow-up recommended. Patient's admitting CT scan of the abdomen/chest showed colitis and fatty liver. Was managed on IV Cipro and Flagyl and discharged on oral Cipro Flagyl to complete a total of 1 week course of antibiotics. He will follow-up with gastroenterology to further elucidate his colitis. Subjective: See progress note of the day Objective: See progress note of the day - Physical Exam Vitals/I&O's: Vital Signs Temp Pulse Resp BP Pulse Ox 97.6 F L 52 L 16 126/73 H 96 08/13/19 08:55 08/13/19 08:55 08/13/19 08:55 08/13/19 08:55 08/13/19 08:55 Oxygen Delivery Method Room Air Weight: 127.5 kg Body Mass Index (BMI) 37.2 Intake and Output for Last 24 Hours 08/11/19 08/12/19 08/13/19 23:59 23:59 23:59 Intake Total 4842.5 / 4842.5 3987.50 / 3987.50 500 / 500 Output Total 1500 / 1500 Balance 3342.5 / 3342.5 3987.50 / 3987.50 500 / 500 Laboratory Results 08/12/19 16:55: Urine Color Yellow, Urine Clarity Sl. Cloudy, Urine pH 5.0, Ur Specific [place] 1.025, Urine Protein Negative, Urine Glucose (UA) Normal, Urine Ketones 150 H, Urine Occult Blood Negative, Urine Nitrite Negative, Urine Bilirubin Negative, Urine Urobilinogen Normal, Ur Leukocyte Esterase 25 H 08/13/19 05:34: WBC 4.9, RBC 4.79, Hgb 13.6, Hct 40.7, MCV 85.0, MCH 28.4, MCHC 33.4, RDW Std Deviation 44.1 H, RDW Coeff of Aurelio 14.3, Plt Count 154, MPV 11.5, Immature Gran % (Auto) 0.200, Neut % (Auto) 45.0 L, Lymph % (Auto) 37.4, [place] % (Auto) 11.9 H, Eos % (Auto) 4.9, Baso % (Auto) 0.6, Absolute Neuts (auto) 2.2, Absolute Lymphs (auto) 1.83, Nucleated RBC % 0 08/13/19 05:34: Sodium 144, Potassium 3.2 L, Chloride 115 H, Carbon Dioxide 21.0, Anion Gap 8, BUN 2 L, Creatinine 0.95, Estim Creat Clear Calc 131.60, Est GFR (MDRD) Af Amer 124, Est GFR (MDRD) Non-Af 103, BUN/Creatinine Ratio 2.1 L, Glucose 90, Calcium 8.3 L, Total Bilirubin 0.40, AST 22, ALT 46, Alkaline Phosphatase 62, Total Protein 5.7 L, Albumin 2.9 L, Globulin 2.8, Albumin/Globulin Ratio 1.0 08/13/19 05:34: SERGEI Screen Pending, MARY ALICE-1 Antibody Pending, SS-A/Ro IgG Antibody Pending, SS-B/La IgG Antibody Pending, Sm (Covarrubias) Antibody Pending, SCHOOL BUS DRIVER/MECHANIC Antibody Pending, Scl-70 Scleroderma Ab Pending, Double Strand DNA Ab Pending, Centromere B Antibody Pending 08/13/19 05:34: c-ANCA Antibody Pending, p-ANCA Antibody Pending Current Medications Acetaminophen (Tylenol) 650 mg PO Q6H PRN PRN PRN Reason: Pain Score 1-3/Temp > 100.7 F Al Hydroxide/Mg Hydroxide (Mylanta Ii) 30 ml PO Q6H PRN PRN PRN Reason: Gastric Burning Ciprofloxacin (Cipro) 400 mg in 200 mls @ 200 mls/hr IV Q12 [facility] Last Admin: 08/13/19 10:58 Dose: 200 mls/hr Documented by: Metronidazole (Flagyl) 500 mg in 100 mls @ 100 mls/hr IV Q8 [facility] Last Infusion: 08/13/19 06:06 Dose: Infused Documented by: Pantoprazole Sodium 40 mg/ (Sodium Chloride) 110 mls @ 330 mls/hr IV Q12 [facility] Last Admin: 08/13/19 07:56 Dose: 330 mls/hr Documented by: Sodium Chloride () 250 mls @ 15 mls/hr IV .[id number] PRN PRN Reason: Saline Flush Sodium Chloride () 250 mls @ 15 mls/hr IV .[id number] PRN PRN Reason: Additional IVPB Infusion Magnesium Hydroxide (Milk Of Magnesia) 30 ml PO DAILY PRN PRN PRN Reason: Constipation Melatonin (Melatonin) 3 mg PO QHS PRN PRN PRN Reason: INSOMNIA Morphine Sulfate () 4 mg IV Q3H PRN PRN PRN Reason: Pain Score 6-10/10 Nutritional Formula (Lactose Free) (Ensure Enlive) 120 ml PO 4X/DAY [facility] Last Admin: 08/13/19 08:59 Dose: 120 ml Documented by: Ondansetron HCl (Zofran) 4 mg IV Q8H PRN PRN PRN Reason: NAUSEA/VOMITING Last Admin: 08/13/19 07:54 Dose: 4 mg Documented by: Oxycodone HCl (Oxyir) 5 mg PO Q4H PRN PRN PRN Reason: Pain Score 4-5/10 Potassium Chloride (K-Dur) 20 meq PO BIDCM [facility] Last Admin: 08/13/19 08:57 Dose: 20 meq Documented by: Promethazine HCl (Phenergan) 25 mg IM Q6H PRN PRN PRN Reason: Breakthrough nausea/vomiting Last Admin: 08/10/19 19:52 Dose: 25 mg Documented by: Sodium Chloride () 10 - 40 ml IV UD PRN PRN Reason: SALINE FLUSH Last Admin: 08/13/19 07:54 Dose: 10 ml Documented by: Throat Lozenges (Cepacol Sore Throat Lozenge) 1 lozenge MUCOUS MEM Q2H PRN PRN PRN Reason: Sore throat or cough Discharge Diet: No Restrictions Discharge Activity: Return to Normal Activity Home Medications: Medications to take at Discharge Esomeprazole Magnesium [Nexium 24Hr] 20 mg PO DAILY 08/08/19 Acetaminophen [Tylenol Tablet] 650 mg PO Q6H PRN PRN tab 08/13/19 Ciprofloxacin [Cipro] 500 mg PO BID #8 tab 08/13/19 Metronidazole 500 mg PO TID 4 Days #12 tab 08/13/19 Potassium Chloride [Klor-Con M20] 20 meq PO BID 7 Days #14 tab.er.prt 08/13/19 Following Prescrptions Were Given to Patient: Ciprofloxacin [Cipro] 500 mg PO BID #8 tab Transmission Status: Received by [email or web address] #30 Potassium Chloride [Klor-Con M20] 20 meq PO BID 7 Days #14 tab.er.prt Prescription Printed Metronidazole 500 mg PO TID 4 Days #12 tab Transmission Status: Sent to [email or web address] Primary Care Physician: Kaleb Junior MD [Primary Care Provider] - Please follow up with your Primary Care Physician in: within 1-2 weeks Please Follow Up With: Lam Redd MD When: within 2 weeks Disposition: Home Minutes spent on discharge:: 40 Patient Condition:: Stable Medical Necessity - Tobacco Use Smoking Status: Never smoker Tobacco Use: Non-smoker Meaningful Use Info Meaningful Use Diagnoses (Choose all that apply): None applicable Code Visit Inpatient E&M: 79443 Disch Hosp
[2019-08-13 13:45] VITALS: BP 131/74; PULSE 60; RESP 16; TEMP 36.2; O2SAT 98
--- NOTE | 2019-08-13 14:03 | CON.PCM_ITS ---
Problem List (1) Cough with hemoptysis Status: Acute (2) Colitis Status: Acute (3) Dehydration Status: Acute (4) Dysphasia Status: Acute (5) No significant past medical history Status: Acute Reason for Consult Date of Consultation: 08/13/19 Reason for Consultation: Hemoptysis History of Present Illness: The patient is a 24 year old M, with no significant past medical history, who presented to [facility] on 08/10/2019 secondary to coughing up blood. Patient reportedly had undergone a work-up for dysphasia recently and had a foreign body sensation in his throat and difficulty swallowing solids. Patient had been eating soft foods and had a 35 pound weight loss. Patient denied any constitutional symptoms such as fever, chills or night sweats. Patient had been seen by ENT and reportedly had no bleeding. Patient had recently had a barium swallow suggesting a possible pharyngeal issue, but ENT evaluation was not significant. Patient stated that he had a coughing episode and brought up thick brown blood. This was followed up by bright red blood. Patient denied any hematemesis and thought that it felt like it came from his throat. In the ER, patient was hemodynamically stable, saturating 98% on room air. Blood pressure was slightly elevated, but not significant. CT of the neck showed nonspecific lymphadenopathy and CT of the chest showed positive bowel inflammation. There was some concern that this was related to Crohn's disease. Patient was admitted to the floor and evaluated by surgery. Surgery work-up was negative, so pulmonary was asked to see the patient for possible suggestions. Patient reports that he has not had any hemoptysis since admission to the hospital. Patient denies any current chest pain, abdominal pain, nausea or vomiting. Patient does report that he had blown his nose during the initial h emoptysis and did have some bright red blood shortly thereafter. Patient has never had anything like this previously. Patient denies any noxious exposures such as tobacco, illicit drugs or occupational exposures. Patient denies any history of asthma. No admission for pneumonia or other respiratory issues have been reported. Patient has never had a pulmonary function test previously. Review of systems otherwise negative from a constitutional, HEENT, respiratory, cardiovascular, GI, genitourinary, musculoskeletal, skin, neurologic, psychiatric and hematologic system unless stated above. Past Medical History Allergies No Known Allergies Allergy (Verified 08/10/19 08:49) Home Medications: Ambulatory Orders Medication Instructions Recorded Esomeprazole Magnesium [Nexium 20 mg PO DAILY 08/08/19 24Hr] Acetaminophen [Tylenol Tablet] 650 mg PO Q6H PRN PRN tab 08/13/19 Ciprofloxacin [Cipro] 500 mg PO BID #8 tab 08/13/19 Metronidazole 500 mg PO TID 4 Days #12 tab 08/13/19 Potassium Chloride [Klor-Con M20] 20 meq PO BID 7 Days #14 tab.er.prt 08/13/19 Surgical History: no surgical history Smoking Status: Never smoker - *Family History Paternal History Items: - - Father healthy denies history of hypertension, diabetes, inflammatory bowel disease Review of Systems Comment: See HPI Objective: All imaging was personally reviewed. CT scan of the chest did not show any significant mediastinal lymphadenopathy, bronchiectasis or groundglass opacities. There was no emphysematous changes noted. Patient has never had a pulmonary function test for evaluation. - Physical Exam Vitals/I&O's: Vital Signs Temp Pulse Resp BP Pulse Ox 36.2 C L 60 16 131/74 H 98 08/13/19 13:45 08/13/19 13:45 08/13/19 13:45 08/13/19 13:45 08/13/19 13:45 Oxygen Delivery Method Room Air Weight: 127.5 kg Body Mass Index (BMI) 37.2 Intake and Output for Last 24 Hours 08/11/19 08/12/19 08/13/19 23:59 23:59 23:59 Intake Total 4842.5 / 4842.5 3987.50 / 3987.50 1410 / 1410 Output Total 1500 / 1500 Balance 3342.5 / 3342.5 3987.50 / 3987.50 1410 / 1410 General: Alert, Oriented x3, Cooperative HEENT: Atraumatic, PERRLA, EOMI, Normocephalic, - - No epistaxis or nasal polyps appreciated Oral: Moist Mucosa, No Gingival or Mucosal Lesions/ Ulcerations Neck: Supple, No JVD, Negative Carotid Bruits, Trachea Midline Lungs: Clear to auscultation, Normal air movement, No rhonchi, No wheeze, No rales, - - Symmetric expansion. No dullness to percussion. 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 Cloudy, Urine pH 5.0, Ur Specific [place] 1.025, Urine Protein Negative, Urine Glucose (UA) Normal, Urine Ketones 150 H, Urine Occult Blood Negative, Urine Nitrite Negative, Urine Bilirubin Negative, Urine Urobilinogen Normal, Ur Leukocyte Esterase 25 H 08/13/19 05:34: WBC 4.9, RBC 4.79, Hgb 13.6, Hct 40.7, MCV 85.0, MCH 28.4, MCHC 33.4, RDW Std Deviation 44.1 H, RDW Coeff of Aurelio 14.3, Plt Count 154, MPV 11.5, Immature Gran % (Auto) 0.200, Neut % (Auto) 45.0 L, Lymph % (Auto) 37.4, [place] % (Auto) 11.9 H, Eos % (Auto) 4.9, Baso % (Auto) 0.6, Absolute Neuts (auto) 2.2, Absolute Lymphs (auto) 1.83, Nucleated RBC % 0 08/13/19 05:34: Sodium 144, Potassium 3.2 L, Chloride 115 H, Carbon Dioxide 21.0, Anion Gap 8, BUN 2 L, Creatinine 0.95, Estim Creat Clear Calc 131.60, Est GFR (MDRD) Af Amer 124, Est GFR (MDRD) Non-Af 103, BUN/Creatinine Ratio 2.1 L, Glucose 90, Calcium 8.3 L, Total Bilirubin 0.40, AST 22, ALT 46, Alkaline Phosphatase 62, Total Protein 5.7 L, Albumin 2.9 L, Globulin 2.8, Albumin/Globulin Ratio 1.0 08/13/19 05:34: SERGEI Screen Pending, MARY ALICE-1 Antibody Pending, SS-A/Ro IgG Antibody Pending, SS-B/La IgG Antibody Pending, Sm (Covarrubias) Antibody Pending, GAMBLING FLOOR SUPERVISOR Antibody Pending, Scl-70 Scleroderma Ab Pending, Double Strand DNA Ab Pending, Centromere B Antibody Pending 08/13/19 05:34: c-ANCA Antibody Pending, p-ANCA Antibody Pending Clinical Impression(s) from Imaging Studies Soft Tissue Neck CT 08/10/19 09:02 IMPRESSION: Nonspecific prominent nodes bilaterally which could be reactive. The exact etiology is undetermined at this time. Unremarkable airway. Electronically Signed: Chago Myles MD at 10:37 EST Tel , Service support , Chest CT 08/10/19 10:03 IMPRESSION: 1. Bilateral basilar dependent atelectasis and/or airspace disease. 2. Hepatic steatosis. 3. Possible colitis. Electronically Signed: Mary Beth Thompson MD at 10:58 EST , Service support , Abdomen CT 08/10/19 18:55 IMPRESSION: Fatty infiltration of the liver. Electronically Signed: Funmi Booker MD at 19:34 EST Tel , Service support , Assessment/Plan All Active Problems Cough with hemoptysis (Acute) No significant past medical history (Acute) Dehydration (Acute) Dysphasia (Acute) Colitis (Acute) RECOMMENDATIONS: 1. Okay to discharge from a pulmonary perspective 2. Follow-up with autoimmune work-up 3. Schedule appointment in our office in 1 month 4. Call office immediately if hemoptysis recurs IMPRESSIONS: 1. Reported hemoptysis Unclear etiology at this time. Patient did have some renal dysfunction on presentation, so Mariela's granulomatosis would be a consideration. Patient has had autoimmune work-up sent. Given that the hemoptysis has not recurred since being in the hospital, bronchoscopy would likely not be helpful. Patient was given the signs and symptoms of recurrence and risk factors for complications. Patient was advised to call us immediately if this were to develop. Patient did report some possible epistaxis, but ENT did not notice any lesions. It is unclear if they were looking for lesions as they were consulted for pharyngeal abnormalities. Patient could have a complete pulmonary function test as an outpatient for evaluation of asthma, but does not have significant respiratory complaints or groundglass opacities to suggest interstitial lung disease at this time. Code Visit Inpatient E&M: 21986 Init Hosp L2
--- NOTE | 2019-08-14 15:59 | CASEMGMT ---
INOCENTE [facility] Discharge Follow-Up Phone Call. Soniya: 15 Strata: 4 Discharge Date: 08/13/19 Adm Dx: Colitis Call to pt to inquire about how he has been doing since being discharged from the hospital. Pt states, About the same. Pt states he has an appt with Dr Junior tomorrow for follow-up. He states he was able to get the discharge medications without any difficulty and has no questions about them or his other medications. He states he has not made a follow-up appt with Dr Redd yet, but plans to do so. He denies having any questions or needs. INOCENTE IVEY thanked pt for choosing [facility]. Pt thanked INOCENTE IVEY for calling. Anh GLORIA RN, CM
[2019-08-14 16:08] LABS: Cytoplasmic Ab (C-ANCA) <1:20 titer (Neg:<1:20)
[2019-08-14 20:22] LABS: ANTINUCLEAR ANTIBODIES DIRECT Negative (Negative)
[2019-08-14 20:23] LABS: Perinuclear Ab (P-ANCA) <1:20 titer (Neg:<1:20)
== END 2019-08-13 13:50 | disposition home or self-care (01) | DRG 392 ==
LOC: ED 11:40 → MS3 11:47
PROVIDERS: Anesthesiology; Surgery; Admitting Provider Internal Medicine; Emergency Provider Emergency Medicine; PCP Family Medicine; Referring Provider Family Medicine; Visit Provider Internal Medicine
PROC: 0DJ08ZZ Inspection of Upper Intestinal Tract, Via Natural or Artificial Opening Endoscopic (ICD-10-PCS; CPT 43235; principal; 2019-08-12 14:55)
DX: K52.9 Noninfective gastroenteritis and colitis, unspecified (principal); K92.0 Hematemesis; R04.2 Hemoptysis; N17.9 Acute kidney failure, unspecified; J98.11 Atelectasis; E86.0 Dehydration; E87.6 Hypokalemia; Z68.37 Body mass index [BMI] 37.0-37.9, adult; R13.10 Dysphagia, unspecified; K76.0 Fatty (change of) liver, not elsewhere classified; E66.01 Morbid (severe) obesity due to excess calories
CPT/HCPCS: 36415; 70491; 71260; 74176; 80048; 80053; 81002; 83735; 85025; 85610; 85730; 86038; 86225; 86235; 86256; 88305; 88342; 97802; 99285; 99406; J7030; Q9967; A4216; J0744; J2405

== ENCOUNTER 2020-11-21 10:38 | Emergency (ER) | payer OTHER, SELFPAY ==
[2019-08-12 13:20] VITALS: BMI 37.2
[2020-11-21 10:39] VITALS: BP 124/92; PULSE 75; RESP 18; TEMP 36.1; O2SAT 98; BMI 37.6
--- NOTE | 2020-11-21 10:44 | CT_ITS ---
STUDY: CT ABDOMEN AND PELVIS WITHOUT CONTRAST REASON FOR EXAM: Male, 25 years old. Kidney Stone; left flank pain RADIATION DOSAGE (If Supplied By Facility): CTDIvol = ( 22.36 ) mGy, DLP = ( 1263.58 ) mGycm TECHNIQUE: Transaxial images were obtained from the dome of the diaphragm to the symphysis pubis without oral contrast, and without intravenous contrast. Sagittal and coronal images were reconstructed. Individualized dose optimization techniques were used for this CT. COMPARISON: None. FINDINGS: The visualized lung bases are unremarkable. The visualized portions of the heart are within normal limits. There is decreased attenuation of the liver consistent with steatosis. Normal gallbladder and extrahepatic biliary system. Normal spleen. Normal pancreas. Normal bilateral adrenal glands. Normal right kidney. Slight left hydronephrosis with a 3 mm calculus at the left UPJ (image 71 series 601). Normal visualized stomach. Normal small intestine. Nondistended colon. The appendix is visualized and appears normal. Normal abdominal aorta. Normal inferior vena cava. Normal retroperitoneum. Nondistended urinary bladder. Normal abdominal wall. Normal osseous structures. CT/Abdomen/Pelvis without Cont IMPRESSION: Left UPJ calculus (3 mm) with slight hydronephrosis. Electronically Signed: Brock Welch MD (Brooks) at 11:49 EDT , Service support ,
--- NOTE | 2020-11-21 10:45 | EDS_ITS ---
HPI HPI - GI History of Present Illness Chief Complaint: Flank Pain Informant: patient Abdominal Pain/Flank Pain Onset: Hours (1) Context: Sudden Onset Timing: Continuous and Waxes and wanes Quality: Aching Location: Left Flank Current Severity: Severe Maximum Severity: Severe Worsened by: Nothing Relieved by: Nothing Nausea/Vomiting/Emesis GI Symptom: Positive for Nausea and Vomiting Quality: Positive for Nonbilious Diarrhea/Melena/Hematochezia GI Symptom: Negative for Diarrhea, Melena and Hematochezia Associated Symptoms Associated Symptoms: Positive for Hematuria; Negative for Dysuria Narrative Narrative: Patient had sudden onset left flank pain, radiates a little into his low back on the left, but not any further down into his abdomen or groin. Never had this before. He went to urgent care and diverted here to the emergency department. Prior similar symptoms: No Recent Illness/Hospitalization: No PFSH PFSH Home Medications esomeprazole magnesium 20 mg PO DAILY 08/08/19 [History Last Taken Unknown] acetaminophen 650 mg PO Q6H PRN PRN tab 08/13/19 [Rx Last Taken Unknown] ciprofloxacin HCl 500 mg PO BID #8 tab 08/13/19 [Rx Last Taken Unknown] ondansetron 8 mg PO Q8H PRN PRN #20 tab 11/21/20 [Rx Last Taken Unknown] oxycodone-acetaminophen [Percocet] 1 tab PO Q4H PRN 3 Days #18 tab 11/21/20 [Rx Last Taken Unknown] Allergy/AdvReac Type Severity Reaction Status Date / Time No Known Allergies Allergy Verified 11/21/20 10:39 no surgical history Social History Smoking Status: Never smoker ROS ROS ED Constitutional Constitutional ED: Denies chills or fever(s) Eyes Eyes: Denies change in vision or diplopia ENT ENT ED: Denies rhinorrhea or sore throat Cardiovascular Cardiovascular: Denies chest pain or palpitations Respiratory/Chest Respiratory/Chest: Denies cough or dyspnea Gastrointestinal Gastrointestinal: Reports abdominal pain, nausea and vomiting; Denies diarrhea or melena Genitourinary Genitourinary ED: Denies dysuria Musculoskeletal Musculoskeletal: Denies back pain or neck pain Integumentary Denies abscess or rash Neurologic Neurologic: Denies headache(s), paresthesias or weakness Psychiatric Psychiatric: Denies anxiety or suicidal thoughts EXAM Physical Exam Const Vital Signs: 11/21/20 10:39 Temperature 96.9 F L Temperature Source Temporal Pulse Rate 75 Respiratory Rate 18 Blood Pressure 124/92 H Blood Pressure Mean 102 Pulse Ox 98 Oxygen Delivery Method Room Air Positive well nourished and well developed General Appearance ED: well developed and other in mild painful distress HEENT Reports moist mucous membranes normocephalic and atraumatic Eyes PERRL and EOMs intact bilaterally Neck full ROM and supple Resp normal respiratory effort and clear to auscultation bilaterally Cardio regular rate, regular rhythm and no murmurs GI non-distended Auscultation: normoactive bowel sounds Palpation: soft and tender LLQ and LUQ; Negative for rebound tenderness present Back/Spine General Back: CVA tenderness left and other FROM Extremity normal to inspection General Extremety ED: Negative for edema, pulses abnormal or tenderness General Extremity: Negative for edema or pulses abnormal Neuro oriented x3, CN's II-XII intact bilaterally and no sensory deficits noted Sensorium / Orientation: awake and alert Motor Exam: strength 5/5 throughout Skin no rashes or lesions noted and no wounds MDM MDM MDM Narrative Medical decision making narrative: History and exam are consistent with a stone, although since he was tender throughout the left side of the abdomen, perforated viscus, diverticulitis, and other upper GI problems in the differential diagnosis. CT confirms a 3 mm UVJ stone with mild hydronephrosis. After Toradol and Zofran he was feeling a lot better but then his symptoms started getting worse and he was treated again with morphine and Reglan, and subsequently felt much better. Expectant management is indicated at this time. No sign of infection on his urinalysis. Discussed with patient and gave him urine strainers for discharge he is comfortable with this plan given prescriptions for Percocet and Zofran. Lab Data Attestation: I reviewed the patient's lab results. Labs: Laboratory Results - last 24 hr 11/21/20 11/21/20 11/21/20 11:11 11:11 12:09 WBC 9.1 RBC 5.52 Hgb 15.8 Hct 48.3 MCV 87.5 MCH 28.6 MCHC 32.7 RDW Std Deviation 42.3 RDW Coeff of Aurelio 13.1 Plt Count 271 MPV 10.3 Immature Gran % (Auto) 0.200 Neut % (Auto) 70.7 H Lymph % (Auto) 18.5 L [place] % (Auto) 9.2 Eos % (Auto) 0.8 Baso % (Auto) 0.6 Absolute Neuts (auto) 6.4 Absolute Lymphs (auto) 1.68 Nucleated RBC % 0 Sodium 139 Potassium 3.5 Chloride 107 Carbon Dioxide 23.0 Anion Gap 9 BUN 11 Creatinine 1.15 Estim Creat Clear Calc 114.17 Est GFR (MDRD) Af Amer 99 Est GFR (MDRD) Non-Af 82 BUN/Creatinine Ratio 9.6 L Glucose 106 Calcium 9.2 Urine Color Kelly Urine Clarity Cloudy Urine pH 5.0 Ur Specific [place] 1.020 Urine Protein 100 H Urine Glucose (UA) Normal Urine Ketones 150 A* Urine Occult Blood 250 H Urine Nitrite Negative Urine Bilirubin 1 H Urine Urobilinogen Normal Ur Leukocyte Esterase 100 H Urine RBC > 100 SEEN Urine WBC 0 SEEN Ur Squamous Epith Cells 0-5 SEEN Urine Bacteria 0 SEEN Urine Mucus 0 SEEN Radiography Diagnostic Testing: Radiology Impression Abdomen/Pelvis CT 11/21/20 10:44 IMPRESSION: Left UPJ calculus (3 mm) with slight hydronephrosis. Electronically Signed: Brock Welch MD (Brooks) at 11:49 EDT , Service support , Discharge Plan Triage Chief Complaint: Flank Pain ED Provider: Anuel Sanchez Dx/Rx/DC Orders Clinical Impression: Colic, ureteral, Urolithiasis Instructions: ED Urine Strainer, ED Kidney Stone w/ Colic Prescriptions: New oxycodone-acetaminophen [Percocet] 5-325 mg tablet 1 tab PO Q4H PRN (Reason: pain) 3 Days Qty: 18 RF: 0 ondansetron 4 mg tablet,disintegrating 8 mg PO Q8H PRN PRN (Reason: Nausea) Qty: 20 RF: 0 No Action esomeprazole magnesium 20 MG capsule,delayed release(DR/EC) 20 mg PO DAILY RF: 0 acetaminophen 325 MG tablet 650 mg PO Q6H PRN PRN (Reason: Pain Score 1-3/Temp > 100.7 F) RF: 0 ciprofloxacin HCl 500 MG tablet 500 mg PO BID Qty: 8 RF: 0 Primary Care Provider: Caryl Green Referrals: Kaleb Junior MD [NON-STAFF] - Wesley Baker MD [STAFF PHYSICIAN] - 1 Week if not improving Disposition Disposition: Home, self care
[2020-11-21] MEDS: Ketorolac 30 MG/ML Syringe IV (11:10)
[2020-11-21] MEDS: Ondansetron 4 MG/2 ML Vial IV (11:10)
[2020-11-21 11:22] LABS: Absolute Lymphocyte Count 1.68 X10^3/uL (0.83-4.51); Absolute Neutrophil Count 6.4 X10^3/uL (2.0-7.7); Basophil# 0.05 X10^3/uL; Basophil% 0.6 % (0-1); Eosinophil# 0.07 X10^3/uL; Eosinophils% 0.8 % (0-5); Hematocrit 48.3 % (40-54); Hemoglobin 15.8 g/dL (13.0-16.5); Lymphocyte # 1.68 X10^3/ul (0.83-4.51); Lymphocyte % 18.5 % (19-41); Mean Corp Hgb Conc 32.7 g/dL (32-36); Mean Corpuscular Hgb 28.6 pg (27.0-32.0); Mean Corpuscular Volume 87.5 fL (80-94); Mean Platelet Vol. 10.3 fl (6.2-12.0); Monocyte# 0.84 X10^3/uL; Monocyte% 9.2 % (0-10); NRBC Flagged by Analyzer 0 % (0-5); Neutrophil # 6.43 X10^3/uL (2.7-7.7); Neutrophil % 70.7 % (47-70); Platelet Count 271 K/mm3 (150-450); RBC Distribution Width CV 13.1 % (11.6-14.6); RBC Distribution Width SD 42.3 fl (35.1-43.9); Red Blood Count 5.52 M/mm3 (4.6-6.2); White Blood Count 9.1 K/mm3 (4.4-11.0)
[2020-11-21 11:36] LABS: Anion Gap 9 (5-15); BUN 11 mg/dL (7-18); BUN/Creat Ratio 9.6 RATIO (10-20); Calcium,Total 9.2 mg/dL (8.5-10.1); Chloride 107 mmol/L (98-107); Creatinine, Serum 1.15 mg/dL (0.70-1.30); EST Glomerular Filtration Rate 82 mL/min (>60); Est Glom Filt Rate - Afr Amer 99 mL/min (>60); Estimated Creatinine Clearance 114.17 ml/min; Glucose 106 mg/dL (74-106); Potassium 3.5 mmol/L (3.5-5.1); Sodium Level 139 mmol/L (136-145)
[2020-11-21 12:14] LABS: Bacteria 0 SEEN /hpf (None Seen); Color, Urine Amber (Yellow); Glucose, Dipstick Normal (Normal); Leukocyte Esterase-Dipstick 100 /ul (Negative); Mucous, Urine 0 SEEN /hpf (<or=2+); Nitrite-Dipstick Negative (Negative); Occult Blood-Urine 250 /ul (Negative); Protein-Dipstick 100 mg/dl (Negative); Urine Clarity Cloudy (Clear); Urine Urobilinogen Normal (Normal); White Blood Cells 0 SEEN /hpf (0-5)
[2020-11-21 12:16] LABS: Ketone-Dipstick 150 mg/dl (Negative); Urine Bilirubin Dipstick 1 mg/dL (Negative)
[2020-11-21] MEDS: Metoclopramide 10 MG/2 ML Vial 5 MG IV (12:16)
[2020-11-21] MEDS: Morphine 4 MG/ML Syringe IV (12:17)
[2020-11-21 12:19] LABS: Red Blood Cells-Urine > 100 SEEN /hpf (0-5)
[2020-11-21 12:20] LABS: Squamous Epithelial Cells - UA 0-5 SEEN /hpf (0-5)
--- NOTE | 2020-11-21 12:20 | ED.RN ---
CALL FROM LAB, URINE [facility] 150, DR ARTIS MADE AWARE
[2020-11-21 12:54] VITALS: BP 140/84; PULSE 88; RESP 18; O2SAT 100
== END 2020-11-21 12:55 | disposition home or self-care (01) ==
LOC: ED 12:35
PROVIDERS: Emergency Provider Emergency Medicine; PCP Physician Assistant
DX: N13.2 Hydronephrosis with renal and ureteral calculous obstruction (principal)
CPT/HCPCS: 74176; 80048; 81001; 85025; 96374; 96375; 99284; J7030; A4216; J2405

== ENCOUNTER 2020-11-25 12:11 | Day surgery (SDC) | payer OTHER, SELFPAY ==
[2020-11-25] VITALS (8 sets, daily range): BP systolic 121–146; BP diastolic 77–96; PULSE 55–76; RESP 16–18; TEMP 36.1–36.6; O2SAT 96–100; BMI 37.2
--- NOTE | 2020-11-25 12:15 | RAD_ITS ---
STUDY: X-RAY - ABDOMEN/PELVIS REASON FOR EXAM: Male, 25 years old. PRE-OP removal of left kidney stone. TECHNIQUE: 1 view COMPARISON: Prior abdomen and pelvic exam of 11/21/2020 FINDINGS: Normal visualized lung bases. There is an unremarkable bowel gas pattern. There is no demonstrated free abdominal air. The visualized liver, spleen and kidneys are grossly normal in size and morphology. The 3 mm stone at the left ureteropelvic junction on prior CT exam of 11/21/2020 is not visualized on the current exam. Normal visualized osseous structures. RAD/Abdomen Single View IMPRESSION: Normal x-ray examination of the abdomen and pelvis. The 3 mm stone at the left ureteropelvic junction on the prior CT exam of 11/21/2020 is not visualized on the current exam. Electronically Signed: Shira Thompson MD at 23:47 EDT , Service support ,
[2020-11-25] MEDS: Lactated Ringers 1,000 ML 100 ML IV (12:45)
[2020-11-25] MEDS: Ketorolac 15 MG/ML Vial IV (16:37)
--- NOTE | 2020-11-25 16:38 | PCM.DC ---
Discharge Instructions Diet Discharge Diet: No restrictions Activity Discharge Activity: May not drive while taking narcotic pain medications. (for 3 days.) May shower in (days): 1 Dressing / Incision Call your doctor if your incision/area has: Continuous Slow Oozing, Increased Pain/ Swelling, Increased Redness and Foul Smelling Discharge Call your doctor if you observe: Fever of 101 or Higher, Numbness or Tingling, Shortness of breath, Dizziness, Calf discomfort and Uncontrolled pain Cleanse incision/area with: Keep Dressing Clean & Dry Discharge Plan Admission Primary Reason for Your Visit: kidney stone Attending Provider: Wesley Baker Primary Care Provider: Caryl Green Instructions Patient Instructions: ED Kidney Stone, Passed Discharge Orders/Prescriptions Prescriptions: New ciprofloxacin HCl [Cipro] 500 mg tablet 500 mg PO BID Qty: 6 RF: 0 oxycodone-acetaminophen [Percocet] 5-325 mg tablet 1 tab PO Q4H PRN (Reason: pain) 7 Days Qty: 14 RF: 0 No Action oxycodone-acetaminophen [Percocet] 5-325 mg tablet 1 tab PO Q4H PRN (Reason: pain) 3 Days Qty: 18 RF: 0 ondansetron 4 mg tablet,disintegrating 8 mg PO Q8H PRN PRN (Reason: Nausea) Qty: 20 RF: 0 Referrals: Caryl Green PA [Primary Care Provider] - Disposition Discharge Orders: Discharge Patient (Routine); Ordered 11/25/20 Ordered By: Dr. Wesley Baker
--- NOTE | 2020-11-25 16:39 | OP.PCM_ITS ---
Problems Associated Problem List Diagnoses (1) Calculi, ureter: Report of Operation Date of Procedure: 11/25/20 Pre-Operative Diagnosis: Renal colic from left ureteral calculi Post-Operative Diagnosis: Same Surgery/Procedure Performed:: Cystoscopy left retrograde pyelogram diagnostic left ureteroscopy Description of Surgical Findings:: A young male 25-year-old male presents to my office with a severe colic several days with a stone in the right side it was a very small stone I originally recommended he just do observation that he is eventually passed it but he insisted on having a procedure that he wants to have relief from the pain that has been having off-and-on with severe colic so we elected to proceed with shockwave lithotripsy if we could find the stone. Patient was taken back to the operating room after smooth induction of general anesthesia he was placed prone on the table reviewed the KUB and the KUB I thought perhaps there was a small old fragment in the distal ureter, we did cystoscopy we put a Pollick catheter into the ureter we followed all the way up to the kidney did a retrograde pyelogram really could not see any stone fragments visible on retrograde pyelogram a question of a maybe stone in the UPJ area so then I put a wire up into the ureter went over with a flexible ureteroscope was able to check the entire length of the ureter no stone along th e course of the ureter some blood in the kidney but again no stone fragments close to the ureter worked my way all the way down and remove the ureteroscope no stent was placed and then I then drained the bladder patient acetic reversed he was taken back to the PACU in good condition stone and passed and his colic is probably just residual colic from passing the stone no visible stones seen on retrograde or diagnostic ureteroscopy. Type of Anesthesia: General Drains: stent Admit VTE Documentation VTE Present on Admission: No VTE Mechan Device Prophylaxis: SCD's
== END 2020-11-25 18:08 ==
LOC: SDC 12:12 → AC 12:15
PROVIDERS: PCP Physician Assistant; Referring Provider Urology; Visit Provider Urology
PROC: (CPT 50590; principal; 2020-11-25 14:20)
DX: N23 Unspecified renal colic (principal); Z87.442 Personal history of urinary calculi
CPT/HCPCS: 52351; 74018; 87426; J7120; C1769; J2405

== ENCOUNTER 2022-02-13 19:50 | Emergency (ER) | payer OTHER, SELFPAY ==
[2022-02-13 19:51] VITALS: BP 147/95; PULSE 95; RESP 16; TEMP 34.4; O2SAT 98; BMI 43.2
--- NOTE | 2022-02-13 20:10 | EDS_ITS ---
HPI History of Present Illness Chief Complaint: Laceration Detail of Chief Complaint: Laceration to left middle finger Informant: patient Narrative Narrative: Patient presents to the emergency department with a laceration to his left middle finger that occurred approximately 7:30 PM. 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 Patient states that there was a bubble of water underneath the skin of his hand he has been expressing water from the wound. Patient is right-hand dominant. He is unsure of his last tetanus. Tetanus Immunization: Unknown [facility] Medical History (Updated 02/13/22 @ 21:[address] Polina Kent DO) Anxiety Chewing tobacco use Hx of throat culture Home Medications cephalexin 500 mg capsule 500 mg PO Q6 #40 CAPSULES 02/13/22 [Rx Last Taken Unknown] paroxetine HCl 40 mg tablet 1 tab PO DAILY 02/13/22 [History Last Taken Unknown] sulfamethoxazole 800 mg-trimethoprim 160 mg tablet 1 tab PO BID #20 TABLETS 02/13/22 [Rx Last Taken Unknown] Allergy/AdvReac Type Severity Reaction Status Date / Time No Known Allergies Allergy Verified 02/13/22 19:51 Surgical History History of esophagogastroduodenoscopy (EGD) History of hand surgery Social History Smoking Status: Never smoker ROS ROS ED Review of Systems ROS Unobtainable: other Constitutional Constitutional ED: Reports lethargy; Denies chills, fever(s), sweats or weight loss Eyes Eyes: Denies blurry vision, change in vision or diplopia ENT ENT ED: Denies rhinorrhea or sore throat Cardiovascular Cardiovascular: Reports chest pain and racing heartbeat; Denies orthopnea Respiratory/Chest Respiratory/Chest: Reports dyspnea and dyspnea on exertion; Denies cough, orthopnea or sputum Gastrointestinal Gastrointestinal: Denies abdominal pain, diarrhea, nausea or vomiting Genitourinary Genitourinary ED: Denies dysuria, hematuria or urinary frequency Musculoskeletal Musculoskeletal: Denies arthralgias, back pain, myalgias or neck pain Integumentary Reports other Details: Laceration left middle finger ; Denies abscess, Abrasions or rash Neurologic Neurologic: Denies headache(s) or weakness Psychiatric Psychiatric: Denies anxiety, depression or suicidal thoughts Endocrine Endocrinology: Denies polydipsia, polyphagia or polyuria Hematologic/Lymphatic Hematologic/Lymphatic: Denies easy bleeding, easy bruising or lymphadenopathy Allergic/Immunologic Allergic/Immunologic ED: Denies mouth swelling, tongue swelling or urticaria EXAM Physical Exam Const Vital Signs: 02/13/22 19:51 Temperature 94 F L Temperature Source Temporal Pulse Rate 95 Respiratory Rate 16 Blood Pressure 147/95 H Blood Pressure Mean 112 Pulse Ox 98 Oxygen Delivery Method Room Air Positive well nourished and well developed General Appearance ED: well developed and NAD HEENT Reports TM's clear and moist mucous membranes normocephalic and atraumatic; Negative for trauma or tenderness Tympanic Membrane ED: Yes TM's clear Eyes PERRL and EOMs intact bilaterally General Eye ED: Negative for pale conjunctiva or scleral icterus Neck no lymphadenopathy, supple and no JVD General: Negative for tenderness Chest Wall inspection of chest normal and palpation of chest normal Chest: Negative for tenderness Resp normal respiratory effort and clear to auscultation bilaterally Effort and Inspection: Negative for respiratory distress or pain with movement Auscultation: Negative for rhonchi, wheezes or diminished lung sounds Cardio regular rate, regular rhythm, S1 normal heart sound, S2 normal heart sound and no murmurs Peripheral Pulses: pulses 2+ throughout GI normal to inspection, nondistended, normoactive bowel sounds, soft to palpation, non-tender, non-distended and no masses Back/Spine no CVA tenderness and no thoracic nor lumbar tenderness Extremity Extremity Narrative: Left hand-patient has a 1 cm laceration over the plantar aspect of the MCP joint of the middle finger. He has normal range of motion flexion extension of all digits. There is some crepitus diffusely about the hand. Normal cap refill. Normal sensation. General Extremety ED: Negative for edema General Extremity: Negative for edema Neuro oriented x3, CN's II-XII intact bilaterally, no sensory deficits noted and gait normal Sensorium / Orientation: awake, alert, oriented to person, oriented to place and oriented to time Motor Exam: strength 5/5 throughout and strength abnormal Psych mental status grossly normal Skin no rashes or lesions noted and no wounds MDM MDM MDM Narrative Medical decision making narrative: Patient had an IV line established. He was given Ancef 1 g IV. Patient case was discussed with orthopedic surgeon on-call Dr. Low Thompson. Dr. Thompson recommended IV antibiotic and not closing the wound and allowing for drainage of possible infection she developed and healing by secondary intention. He would be happy to see patient in the office for follow-up with the understanding that if he should develop a severe infection or flexor synovitis he would need referral to orthopedic hand surgeon. At this time patient has normal function and normal sensation. I do not appreciate any obvious tendon laceration at the wound and he is got normal range of motion in flexion against resistance. Patient advised of risk of developing severe infection and flexor tenosynovitis. He is advised to return immediately if increased pain, redness, swelling, fever, purulent drainage from the wound, decreased ability to flex the finger. Or condition worsen anyway. He is also advised that he return to this department he will likely be transferred to a facility that has hand surgeon available. I contacted [facility] to speak with their hand surgeon on- call. Dr. Hardy was in the operating room but they were able to relay the message to him and he felt that patient would do well with elevation and antibiotics and outpatient follow-up. Patient will be discharged home again with instructions to return if any worsening symptoms. Radiography Diagnostic Testing: Three-view x-rays of the left hand obtained interpreted by myself as air in the soft tissues of digits and hand. No foreign bodies noted. Radiology was in agreement. Discharge Plan Triage Chief Complaint: Laceration ED Provider: Polina Kent Dx/Rx/DC Orders Clinical Impression: Laceration of left middle finger Instructions: ED Laceration, Hand: All Closures, ED Laceration Small or ... Prescriptions: New sulfamethoxazole-trimethoprim [sulfamethoxazole-trimethoprim] 1 TABLET tablet 1 tab PO BID Qty: 20 0RF cephalexin [cephalexin] 500 MG capsule 500 mg PO Q6 Qty: 40 0RF No Action paroxetine HCl 40 mg tablet 1 tab PO DAILY Label Comments: TAKE 1 TABLET BY MOUTH ONCE DAILY Primary Care Provider: Caryl Green Referrals: Low Thompson MD [STAFF PHYSICIAN] - 2 Days for wound check Caryl Green PA [Primary Care Provider] - Disposition Disposition: Home, Self Care
--- NOTE | 2022-02-13 20:29 | RAD_ITS ---
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 FINDINGS: Normal radiocarpal articulation. Normal distal radioulnar joint. Normal visualized carpal bones. Normal carpal articulations Normal carpometacarpal articulation of the thumb. Normal second through fifth carpometacarpal joints. Normal metacarpi. Normal metacarpophalangeal joint of the thumb. Normal interphalangeal joint of the thumb. Normal proximal and distal phalanges of the thumb. Normal metacarpophalangeal joints of the second through fifth fingers. Normal proximal and distal interphalangeal joints of the second through fifth fingers. Normal phalanges of the second through fifth fingers. Diffuse soft tissue air and swelling between the digits. RAD/Hand Min 3 Views IMPRESSION: Diffuse soft tissue air and swelling between the digits. Electronically Signed: Cesar Zuniga MD at 20:43 EDT ,
[2022-02-13] MEDS: Diphth,Pertuss(Acell),Tet Vac 0.5 ML Vial IM (20:36)
[2022-02-13] MEDS: Cefazolin 1 GM/50 ML BAG IV (21:13)
== END 2022-02-13 22:10 | disposition home or self-care (01) ==
PROVIDERS: Emergency Provider Emergency Medicine; PCP Physician Assistant; Visit Provider Emergency Medicine
DX: S61.213A Laceration without foreign body of left middle finger without damage to nail, initial encounter (principal); F41.9 Anxiety disorder, unspecified; Z79.899 Other long term (current) drug therapy; W29.8XXA Contact with other powered hand tools and household machinery, initial encounter
CPT/HCPCS: 73130; 90715; 96365; 99283; J7050; A4216

== ENCOUNTER 2022-03-15 11:18 | Emergency (ER) | payer OTHER, SELFPAY ==
[2022-03-15 11:19] VITALS: BP 148/96; PULSE 89; RESP 18; TEMP 36.6; O2SAT 98; BMI 43.4
--- NOTE | 2022-03-15 11:37 | RAD_ITS ---
STUDY: X-RAY - LEFT SHOULDER REASON FOR EXAM: Male, 27 years old. Pain following injury. TECHNIQUE: 4 view(s) of the shoulder. COMPARISON: None. FINDINGS: Normal glenohumeral articulation. Normal acromioclavicular joint. Normal acromion. Normal humeral head and visualized proximal humerus. The soft tissue structures are unremarkable. Normal visualized pulmonary apex. RAD/Shoulder min 2 Views IMPRESSION: Normal x-ray examination of the shoulder. Electronically Signed: Geovany Valladares MD at 12:23 EDT ,
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
== END 2022-03-15 13:06 | disposition home or self-care (01) ==
PROVIDERS: Emergency Provider Emergency Medicine; PCP Physician Assistant; Visit Provider Emergency Medicine
DX: S00.81XA Abrasion of other part of head, initial encounter (principal); S40.212A Abrasion of left shoulder, initial encounter; S40.012A Contusion of left shoulder, initial encounter; S20.20XA Contusion of thorax, unspecified, initial encounter; F41.9 Anxiety disorder, unspecified; Z79.899 Other long term (current) drug therapy; W28.XXXA Contact with powered lawn mower, initial encounter
CPT/HCPCS: 71101; 73030; 99282

== ENCOUNTER → 2022-03-22 | Outpatient (CLI) | payer OTHER, SELFPAY ==
--- NOTE | 2022-03-22 15:51 | CT_ITS ---
STUDY: CT ABDOMEN AND PELVIS WITHOUT CONTRAST REASON FOR EXAM: Male, 27 years old. PAIN RADIATION DOSAGE (If Supplied By Facility): CTDIvol = ( 19.62 ) mGy, DLP = ( 1238.62 ) mGycm TECHNIQUE: Transaxial images were obtained from the dome of the diaphragm to the symphysis pubis without oral contrast, and without intravenous contrast. Sagittal and coronal images were reconstructed. Individualized dose optimization techniques were used for this CT. COMPARISON: 11/21/2020 FINDINGS: The visualized lung bases are unremarkable. The visualized portions of the heart are within normal limits. There is decreased attenuation of the liver consistent with steatosis. Normal gallbladder and extrahepatic biliary system. Normal spleen. Normal pancreas. Normal bilateral adrenal glands. Normal right kidney. 2 mm nonobstructing stone in the midsection of left kidney. No hydronephrosis, ureteral stone, ureteral dilatation. Normal visualized stomach. Normal small intestine. Normal colon. The appendix is visualized and appears normal. Normal abdominal aorta. Normal inferior vena cava. Normal retroperitoneum. Normal urinary bladder. Normal abdominal wall. Normal osseous structures. CT/Abdomen/Pelvis without Cont IMPRESSION: 1. No acute abnormality. 2. Fatty infiltration of the liver. 3. 2 mm nonobstructing left renal stone. Electronically Signed: Eduardo Stephens MD at 16:29 EDT ,
[2022-03-22 17:23] LABS: Absolute Lymphocyte Count 1.76 X10^3/uL (0.83-4.51); Absolute Neutrophil Count 5.9 X10^3/uL (2.0-7.7); Basophil# 0.06 X10^3/uL; Basophil% 0.6 % (0-1); Eosinophil# 0.81 X10^3/uL; Eosinophils% 8.4 % (0-5); Hematocrit 44.3 % (40-54); Hemoglobin 14.5 g/dL (13.0-16.5); Lymphocyte # 1.76 X10^3/ul (0.83-4.51); Lymphocyte % 18.3 % (19-41); Mean Corp Hgb Conc 32.7 g/dL (32-36); Mean Corpuscular Hgb 29.7 pg (27.0-32.0); Mean Corpuscular Volume 90.6 fL (80-94); Mean Platelet Vol. 10.2 fl (6.2-12.0); Monocyte# 1.09 X10^3/uL; Monocyte% 11.3 % (0-10); NRBC Flagged by Analyzer 0 % (0-5); Neutrophil # 5.85 X10^3/uL (2.7-7.7); Platelet Count 262 K/mm3 (150-450); RBC Distribution Width CV 13.5 % (11.6-14.6); RBC Distribution Width SD 45.1 fl (35.1-43.9); Red Blood Count 4.89 M/mm3 (4.6-6.2); White Blood Count 9.6 K/mm3 (4.4-11.0)
[2022-03-22 18:00] LABS: ALB/GLOB Ratio 0.9 RATIO (0.9-2.4); AST(SGOT) 38 U/L (15-37); Alanine Aminotransfer ALT/SGPT 77 U/L (16-61); Albumin, Serum 3.6 g/dL (3.2-5.0); Alkaline Phosphatase 96 U/L (45-117); Anion Gap 7 (5-15); BUN 13 mg/dL (7-18); BUN/Creat Ratio 12.6 RATIO (10-20); Chloride 105 mmol/L (98-107); Creatinine, Serum 1.03 mg/dL (0.70-1.30); EST Glomerular Filtration Rate 92 mL/min (>60); Est Glom Filt Rate - Afr Amer 111 mL/min (>60); Globulin 4.2 g/dL (2.2-4.2); Glucose 94 mg/dL (74-106); Potassium 4.2 mmol/L (3.5-5.1); Protein, Total 7.8 g/dL (6.4-8.2); Sodium Level 140 mmol/L (136-145)
== END | disposition home or self-care (01) ==
PROVIDERS: PCP Physician Assistant; Referring Provider Registered Nurse; Visit Provider Registered Nurse
DX: R10.9 Unspecified abdominal pain (principal)
CPT/HCPCS: 36415; 74176; 80053; 85025

== ENCOUNTER → 2023-05-19 | Outpatient (CLI) | payer OTHER, SELFPAY ==
--- NOTE | 2023-05-19 13:32 | STRESSREP_ITS ---
Stress Test Report Date: 05/19/2023 Procedure: Exercise tolerance test Indications: Chest pain Consent: Per the patient Procedure: The patient exercised on a Lam protocol for 12 minutes achieving a peak heart rate of 187 bpm (97% predicted maximal heart rate) with a peak blood pressure 150/80 mmHg and a peak MET capacity of approximately 13.7 MET's. The baseline ECG demonstrated sinus rhythm. The peak exercise ECG demonstrated no ischemic changes. There were no cardiac dysrhythmias pretest, during exercise, or recovery. The functional capacity was considered very good. The patient had no complaints of chest discomfort during exercise or recovery. The examination was discontinued secondary to target heart rate being achieved. Impression: 1. Technically adequate (percent predicted maximal heart rate greater than 85%) exercise tolerance test 2. Peak exercise ECG with no ischemic changes. Negative exercise stress ECG 3. There were no cardiac dysrhythmias during exercise or recovery This note was generated with Process [employer] software. It may contain incorrect words, spelling, and punctuation that were not noted in checking the note before signing.
== END | disposition home or self-care (01) ==
PROVIDERS: PCP Physician Assistant; Referring Provider Family Medicine; Visit Provider Family Medicine
DX: R07.89 Other chest pain (principal); Z82.49 Family history of ischemic heart disease and other diseases of the circulatory system
CPT/HCPCS: 93017

== ENCOUNTER 2023-11-13 18:27 | Emergency (ER) | payer OTHER, SELFPAY ==
[2023-11-13 18:28] VITALS: BP 132/95; PULSE 81; RESP 18; TEMP 36.6; O2SAT 99; BMI 37.8
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
[2023-11-13 19:16] VITALS: BP 130/74; PULSE 80; RESP 16; TEMP 36.6; O2SAT 97
[2023-11-13 20:11] LABS: HIV - WCH Non-Reactive (Nonreactive); Hepatitis B Surface Antibody Non-Reactive; Hepatitis B Surface Antigen Non-Reactive (Nonreactive); Hepatitis C Antibody Non-Reactive (Nonreactive)
== END 2023-11-13 19:17 | disposition home or self-care (01) ==
LOC: ED 19:05
PROVIDERS: Emergency Provider Emergency Medicine; PCP Physician Assistant; Visit Provider Emergency Medicine
DX: Z77.21 Contact with and (suspected) exposure to potentially hazardous body fluids (principal); F41.9 Anxiety disorder, unspecified; Z79.899 Other long term (current) drug therapy
CPT/HCPCS: 86703; 86706; 86803; 87340; 99282

== ENCOUNTER 2025-02-01 23:50 | Emergency (ER) | payer OTHER, SELFPAY ==
[2025-02-01 23:51] VITALS: BP 156/104; PULSE 81; RESP 16; TEMP 37.1; O2SAT 100; BMI 42.8
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
--- OUTSIDE RECORDS SUMMARY | 2025-02-02 01:11 | XMS RPT_ITS | CCD ---
Author Organization [facility] Care Team Providers Care R Programmer Name Role Phone Clarence Rodriguez MD Primary Care Provider SWATI Hilton Primary Care Provider Dr. Clarence Rodriguez Referring Provider Dr. Clarence Rodriguez Other Provider Dr. Segun Maciel Attending Provider [phone] Clarence Rodriguez MD Primary Care Provider Clarence Rodriguez MD Primary Care Provider [phone] Caryl Hilton Primary Care Unavailable Clarence Rodriguez Consulting Unavailable Clarence Rodriguez Referring Unavailable Segun Maciel Attending Unavailable Caryl Hilton Primary Care Unavailable Clarence Rodriguez Attending Unavailable Clarence Rodriguez Referring Unavailable Caryl Hilton Primary Care Unavailable Richelle Richards Attending Unavailable Clarence Rodriguez MD Primary Care Provider Blanca Olivares APRN.CNP Unavailable Caryl Green PA-C Unavailable [phone] CLARENCE RODRIGUEZ Attending Unavailable CLARENCE RODRIGUEZ Primary Care Unavailable CLARENCE RODRIGUEZ Attending Unavailable CLARENCE RODRIGUEZ Primary Care Unavailable CLARENCE RODRIGUEZ Primary Care Unavailable CLARENCE RODRIGUEZ Primary Care Unavailable CLARENCE RODRIGUEZ Primary Care Unavailable Medications Current Medications Medication Drug Class(es) Dates Sig (Normalized) Sig (Original) acetaminophen 325 mg / oxyCODONE hydrochloride 5 mg oral tablet (3 sources) Opioid Agonist Start: 03-23-2022 End: 03-30-2022 take 1 tablet by mouth every eight hours as needed for pain oxyCODONE-acetami nophen (PERCOCET) 5-325 mg tablet Indications: Flank pain , Acute pain of left shoulder Take 1 tablet by mouth every 8 hours as needed for pain for up to 7 days. 20 tablet 0 03/23/2022 03/30/2022 Active Comment on above: Take 1 tablet by [facility] every 8 hours as needed for pain for up to 7 days. amoxicillin 500 mg oral capsule (3 sources) Penicillin-class Antibacterial Start: 07-08-2024 End: 07-18-2024 take 1 capsule by mouth twice daily amoxicillin (AMOXIL) 500 mg capsule Take 1 capsule by mouth two times a day for 10 days. 20 capsule 07/08/2024 07/18/2024 Active Start: 05-29-2024 End: 06-05-2024 take 1 tablet by mouth twice daily amoxicillin (AMOXIL) 875 mg tablet Indications: Acute otitis media, right Take 1 tablet by mouth two times a day for 7 days. 14 tablet 05/29/2024 06/05/2024 Active Start: 10-19-2022 End: 10-29-2022 take 1 capsule by mouth twice daily amoxicillin (AMOXIL) 500 mg capsule Take 1 capsule by mouth twice daily for 10 days. 20 capsule 0 10/19/2022 10/29/2022 Active Comment on above: Take 1 capsule by [facility] twice daily for 10 days. amoxicillin 875 mg / clavulanate 125 mg oral tablet (1 source) Penicillin-class Antibacterial Start: 08-02-19 End: 08-12-19 take 1 tablet by mouth twice daily amoxicillin-clavulan ate potassium (AUGMENTIN) 875-125 mg per tablet Take 1 tablet by mouth two times a day for 10 days. 20 tablet 08/02/2024 08/12/2024 Active busPIRone hydrochloride 15 mg oral tablet (15 sources) Start: 12-16-19 End: 02-22-20 take 1 tablet by mouth twice daily busPIRone (BUSPAR) 15 mg tablet Take 1 tablet by mouth twice daily. 30 tablet 5 12/15/2021 02/21/2022 Discontinued (Side Effects) Start: 08-12-2021 End: 12-15-2021 take 1 tablet by mouth twice daily busPIRone (BUSPAR) 7.5 mg tablet Take 1 tablet by mouth twice daily. 60 tablet 1 08/12/2021 12/15/2021 Discontinued Comment on above: Take 1 tablet by kiera th twice daily. cephalexin 500 mg oral capsule (5 sources) Cephalosporin Antibacterial Start: 02-14-20 take 500 mg by mouth every six hours Cephalexin Active 500 MG PO EVERY 6 HOURS 40 February 13, 2022 12:00am 24 hr fluvoxaMINE maleate 150 mg extended release oral capsule (4 sources) Serotonin Reuptake Inhibitor Start: 07-22-20 take 1 capsule by mouth once daily at bedtime fluvoxaMINE ER (LUVOX CR) 150 mg capsule Take 150 mg by mouth daily at bedtime. 07/22/2023 Active mometasone furoate 1 mg/ml topical cream (2 sources) Corticosteroid Start: 05-31-20 End: 05-24-20 mometasone (ELOCON) 0.1 % cream Apply to areas twice a day. On for 4 days and off for 3 days. Repeat as needed. 15 g 1 05/31/2023 05/24/2024 Active Comment on above: Apply to areas twice a day. On for 4 days and off for 3 days. Repeat as needed. PARoxetine hydrochloride 40 mg oral tablet (20 sources) Serotonin Reuptake Inhibitor Start: 02-14-20 End: 09-09-19 take 1 tablet by mouth once daily Paroxetine Hcl Active 1 TABLET PO DAILY February 13, 2022 12:00am Start: 02-13-2022 End: 07-24-2022 take 1.5 tablets by mouth once daily PARoxetine (PAXIL) 40 mg tablet Take 1.5 tablets by mouth once daily. 30 tablet 5 06/24/2022 07/15/2022 Discontinued (Adjust Sig - Block E-Cancel) Start: 05-12-2021 End: 02-21-2022 take 1 tablet by mouth once daily Paroxetine Hcl Active 1 TABLET PO DAILY February 13, 2022 12:00am Comment on above: Take 1 tablet by kiera th once daily. Take 1.5 tablets by mouth once daily. Take 0.5 tablets by mouth once daily. propranolol hydrochloride 40 mg oral tablet (20 sources) beta-Adrenergic Ang Start: 07-15-2022 End: 08-14-2022 take 1 tablet by mouth twice daily propranolol (INDERAL) 40 mg tablet Take 1 tablet by mouth twice daily. 60 tablet 1 07/15/2022 Active Start: 02-21-2022 End: 07-15-2022 take 1 tablet by mouth every eight hours as needed propranolol (INDERAL) 20 mg tablet Take 1 tablet by mouth three times daily as needed. 90 tablet 0 02/21/2022 07/15/2022 Discontinued Comment on above: Take 1 tablet by kiera th three times daily as needed. Take 1 tablet by kiera th twice daily. sulfamethoxazole 800 mg / trimethoprim 160 mg oral tablet (10 sources) Dihydrofolate Reductase Inhibitor Antibacterial, Sulfonamide Antimicrobial Start: 03-22-20 End: 04-01-20 take 1 tablet by mouth twice daily sulfamethoxazole- trimethoprim (BACTRIM DS) 800-160 mg per tablet Indications: Flank pain , Acute cystitis with hematuria Take 1 tablet by mouth twice daily for 10 days. 20 tablet 0 03/22/2022 04/01/2022 Active Start: 02-13-2022 take 1 tablet by kiera twice daily Sulfamethoxazole-Trimethoprim Active 1 T ABLET PO TWICE A DAY February 13, 2022 12:00am Comment on above: Take 1 tablet by kiera twice daily for 10 days. Completed/Discontinued Medications Medication Drug Class(es) Dates Sig (Normalized) Sig (Original) acetaminophen 325 mg / HYDROcodone bitartrate 5 mg oral tablet (3 sources) Opioid Agonist Start: 03-22-2022 End: 03-23-2022 take 1 tablet by mouth every six hours as needed for pain HYDROcodone-aceta minophen (NORCO) 5-325 mg per tablet Indications: Flank pain , Acute pain of left shoulder Take 1 tablet by mouth every 6 hours as needed for pain. 28 tablet 0 03/22/2022 03/23/2022 Discontinued (Other) Comment on above: Take 1 tablet by kiera th every 6 hours as needed for pain. escitalopram 10 mg oral tablet (8 sources) Serotonin Reuptake Inhibitor End: 05-31-2023 take 1 tablet by mouth once daily escitalopram oxalate (LEXAPRO) 10 mg tablet Take 10 mg by mouth once daily. Take one tablet daily (counseling center) 05/31/2023 Discontinued Comment on above: Take 10 mg by mouth once daily. Take one tablet daily (counseling center) fluticasone propionate 0.05 mg/actuat metered dose nasal spray (20 sources) Corticosteroid Start: 12-24-2020 End: 07-15-2022 take 2 spray(s) by mouth once daily fluticasone (FLONASE) 50 mcg/actuation nasal spray Use 2 Sprays in each nostril once daily. Rinse mouth after use. 1 Bottle 5 12/24/2020 07/15/2022 Discontinued (Course of therapy completed) Comment on above: Use 2 Sprays in each nostril once daily. Rinse mouth after use. hydrOXYzine hydrochloride 25 mg oral tablet (20 sources) Antihistamine Start: 01-26-2021 End: 09-09-2022 hydrOXYzine HCl (ATARAX) 25 mg tablet Take 1 to 2 tablets every 6 hours prn anxiety/panic attacks. 60 tablet 1 07/15/2022 09/09/2022 Discontinued (Lack of Efficacy) take 1 tablet by kiera th every eight hours as needed hydrOXYzine HCl (ATARAX) 10 mg tablet Ta ke 10 mg by mouth three times daily as needed for anxiety. Take 1-2 tablets daily as needed Active Comment on above: Take 1 to 2 tablets every 6 hours prn anxiety/panic attacks. Take 10 mg by mouth three times daily as needed for anxiety. Take 1-2 tablets daily as needed metroNIDAZOLE 500 mg oral tablet (5 sources) Nitroimidazole Antimicrobial Start: End: take 500 mg by mouth three times daily Metronidazole Discontinued 500 MG PO THREE TIMES A DAY 12 August 13, 2019 1:00am August 17, 2019 1:08am omeprazole 40 mg delayed release oral capsule (10 sources) Proton Pump Inhibitor Start: 023 End: 023 take 1 capsule by mouth once daily before breakfast omeprazole (PRILOSEC) 40 mg capsule Take 1 capsule by mouth daily before breakfast. 1/2 hr before meal. 30 capsule 5 03/01/2023 04/20/2023 Discontinued (Lack of Efficacy) Start: 12-12-2022 End: 03-01-2023 take 1 capsule by mouth once daily before breakfast omeprazole (PRILOSEC) 20 mg capsule Take 1 capsule by mouth daily before breakfast. 1/2 hr before meal. 30 capsule 5 12/12/2022 03/01/2023 Discontinued Comment on above: Take 1 capsule by mo uth daily before breakfast. 1/2 hr before meal. pantoprazole 40 mg delayed release oral tablet (7 sources) Proton Pump Inhibitor Start: End: take 1 tablet by mouth once daily before mealtime pantoprazole DR (PROTONIX) 40 mg tablet Take 1 tablet by mouth once daily. Take on empty stomach, 1/2 hr before meal. 08/09/2023 08/02/2024 Discontinued (Discontinued by Patient) Start: 04-20-2023 take 1 tablet by kiera th twice daily before mealtime pantoprazole DR (PROTONIX) 40 mg tablet Take 1 tablet by mouth twice daily. Take on empty stomach, 1/2 hr before meal. 60 tablet 5 04/20/2023 Active Comment on above: Take 1 tablet by kiera th twice daily. Take on empty stomach, 1/2 hr before meal. Potassium Chloride (Klor-Con M20) 20 MEQ Tab.Er.Prt (5 sources) Start: 08-13-19 End: 08-20-19 take 1 tablet by mouth twice daily Potassium Chloride (Klor-Con M20) 20 MEQ Tab.Er.Prt Discontinued 20 MEQ PO TWICE A DAY 14 August 13, 2019 1:00am August 20, 2019 1:07am 24 hr venlafaxine 150 mg extended release oral capsule (11 sources) Serotonin and Norepinephrine Reuptake Inhibitor Start: 11-04-19 End: 03-01-20 23 take 1 capsule by mouth once daily venlafaxine ER (EFFEXOR XR) 150 mg 24 hr capsule Take 1 capsule by mouth once daily. 30 capsule 1 01/06/2023 03/01/2023 Discontinued (Discontinued by another Health Care Provider) Start: 09-09-2022 End: 10-09-2022 take 1 capsule by mouth once daily venlafaxine ER (EFFEXOR XR) 150 mg 24 hr capsule Take 1 capsule by mouth once daily. 30 capsule 1 09/09/2022 Active Start: 08-05-2022 End: 09-09-2022 take 1 capsule by mouth once daily venlafaxine ER (EFFEXOR XR) 75 mg 24 hr capsule Take 1 capsule by mouth once daily. 30 capsule 0 08/05/2022 09/09/2022 Discontinued Start: 07-15-2022 End: 08-21-2022 take 1 capsule by mouth once daily, then take 2 capsules by mouth once daily venlafaxine ER (EFFEXOR XR) 37.5 mg 24 hr capsule Take 1 capsule by mouth once daily for 7 days, THEN 2 capsules once daily. 67 capsule 0 07/15/2022 08/04/2022 Discontinued Comment on above: Take 1 capsule by mo uth once daily for 7 days, THEN 2 capsules once daily. Take 1 capsule by mo uth once daily. Problems Active Problems Problem Classification Problem Date Documented Date Episodic/Chronic Abdominal pain (2 sources) Flank pain; Translations: [Unspecified abdominal pain] Episodic Acute and chronic tonsillitis (1 source) Tonsillitis; Translations: [Acute tonsillitis, unspecified] 08-02-2024 Episodic Anxiety disorders (20 sources) Generalized anxiety disorder; Translations: [Generalized anxiety disorder] Onset: 08-16-2019 08-16-2019 Chronic Asthma (5 sources) Asthma; Translations: [Unspecified asthma, uncomplicated] 07-19-2019 Chronic Calculus of urinary tract (15 sources) Ureteric colic; Translations: [Unspecified renal colic] 11-22-2020 Episodic Chronic obstructive pulmonary disease and bronchiectasis (5 sources) Purulent bronchitis; Translations: [Mucopurulent chronic bronchitis] 07-19-2019 Chronic E Codes: Cut/pierceb (4 sources) Accident caused by 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 clerk; Translations: [Contact with 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 clerk, initial encounter] 03-23-2022 Episodic E Codes: Machinery (1 source) Contact with unspecified agricultural machinery, initial encounter; Translations: [Accidents caused by agricultural machines] Episodic Esophageal disorders (15 sources) Gastroesophageal reflux disease without esophagitis; Translations: [Gastro-esophageal reflux disease without esophagitis] Onset: 03-01-2023 03-01-2023 Chronic Fluid and electrolyte disorders (5 sources) Dehydration; Translations: [Dehydration] 08-12-2019 Episodic Hepatitis (13 sources) Nonalcoholic steatohepatitis; Translations: [Nonalcoholic steatohepatitis (LOCKHART)] Onset: 03-01-2023 03-01-2023 Chronic Mood disorders (1 source) Mild depression; Translations: [Mild depression] Chronic Mycoses (1 source) Candidiasis; Translations: [Candidiasis, unspecified] 03-01-2023 Episodic Noninfectious gastroenteritis (5 sources) Colitis; Translations: [Noninfective gastroenteritis and colitis, unspecified] 08-10-2019 Episodic Open wounds of extremities (5 sources) Laceration of left middle finger; Translations: [Laceration without foreign body of left middle finger without damage to nail, initial encounter] 02-21-2022 Episodic Other injuries and conditions due to external causes (1 source) Injury of head; Translations: [Unspecified injury of head, initial encounter] Episodic Other liver diseases (1 source) Steatosis of liver; Translations: [Fatty (change of) liver, not elsewhere classified] Chronic Other lower respiratory disease (5 sources) Hemoptysis; Translations: [Hemoptysis] 08-13-2019 Episodic Other lower respiratory disease (2 sources) Rib pain; Translations: [Pleurodynia] 03-04-2023 Episodic Other nervous system disorders (5 sources) Dysphasia; Translations: [Dysphasia] 08-12-2019 Episodic Other nutritional; endocrine; and metabolic disorders (20 sources) Obese class II; Translations: [Obesity, unspecified] Onset: 09-16-2019 09-16-2019 Chronic Other upper respiratory disease (20 sources) Seasonal allergic rhinitis; Translations: [Other seasonal allergic rhinitis] Onset: 12-24-2020 12-24-2020 Chronic Other upper respiratory infections (5 sources) Sore throat symptom; Translations: [Acute pharyngitis, unspecified] Episodic Otitis media and related conditions (1 source) Acute right otitis media; Translations: [Otitis media, unspecified, right ear] 05-29-2024 Episodic Residual codes; unclassified (1 source) Intolerant of heat; Translations: [Other general symptoms and signs] 03-01-2023 Episodic Sprains and strains (1 source) Traumatic rupture of rotator cuff; Translations: [Strain of muscle(s) and tendon(s) of the rotator cuff of left shoulder, initial encounter] Episodic Superficial injury; contusion (16 sources) Contusion of chest; Translations: [Contusion of unspecified front wall of thorax, initial encounter] 03-23-2022 Episodic Unclassified (5 sources) No history of clinical finding in subject; Translations: [No significant past medical history] 07-18-2019 Urinary tract infections (1 source) Acute cystitis; Translations: [Acute cystitis with hematuria] Episodic Past or Other Problems Problem Classification Problem Date Documented Da te Episodic/Chronic Nonspecific chest pain (3 sources) Atypical chest pain; Translations: [Other chest pain] Onset: 05-24-2023 04-20-2023 Episodic Other non-traumatic joint disorders (20 sources) Shoulder pain; Translations: [Pain in left shoulder] Onset: 04-07-2022 Episodic Other screening for suspected conditions (not mental disorders or infectious disease) (20 sources) Patient encounter status; Translations: [Encounter for screening for diabetes mellitus] Onset: 01-04-2021 01-04-2021 Episodic Other upper respiratory disease (5 sources) Feeling of lump in throat; Translations: [Globus sensation] Onset: 08-16-2019 Resolved: 09-16-2019 09-16-2019 Episodic Residual codes; unclassified (8 sources) FH: premature coronary heart disease; Translations: [Family history of ischemic heart disease and other diseases of the circulatory system] Onset: 04-20-2023 04-20-2023 Episodic Residual codes; unclassified (6 sources) Contact with and (suspected) exposure to potentially hazardous body fluids; Translations: [Exposure to blood] Onset: 11-14-2023 11-13-2023 Episodic Residual codes; unclassified (1 source) Family history of ischemic heart disease and other diseases of the circulatory system; Translations: [Family history of ischemic heart disease and other diseases of the circulatory system] Onset: 05-24-2023 Episodic Results Test Name Value Interpretation Reference Range Facility [facility] 08-02-2024 [facility] Office Visit (FAMPWS ) ALDAIR YEPEZ ([id number]) 1995 M Date Time Provider Department 08/02/24 10:20 AM [facility] During your visit today, we recorded the following information about you: Temperature Pulse Respiration Blood pressure 98.5 degrees 80/minute 18/minute 118/90 Weight 134.3 kg Clarence Rodriguez MD 08/02/2024 10:47 AM Signed Chief Complaint Patient presents with: Sore Throat: Sore throat started a week ago. HPI Aldair Yepez is a 29 year old male who presents here today for swollen tonsils and side of neck/sore throat. Patient indicated that he had strep throat 1 month ago was treated and was better. 1 week ago started getting a sore throat/then some swelling in tonsils left side of neck. Patient indicated it has gotten worse today with difficulty getting fluids. Is able to breath with no issues. No fevers. Left ear has been slightly sore. No facial pain. Some dark yellow/green nasal discharge. Some post nasal drainage. No cough. Left side of neck is sore. No shortness of breath,, wheezing, nausea, vomiting or diarrhea. Past medical history, appointments, medications, allergies reviewed. Previous Medical History PAST MEDICAL HISTORY Diagnosis Date SANJAY (generalized anxiety disorder) 08/16/2019 GERD without esophagitis 03/01/2023 Globus sensation 08/16/2019 improved with treatment of anxiety LOCKHART (nonalcoholic steatohepatitis) 03/01/2023 Obesity, Class II, BMI 35-39.9 09/16/2019 Panic attack 08/30/2019 PMH - PAST MEDICAL HISTORY OF 2009 normal color vision Seasonal allergic rhinitis 12/24/2020 Well adult exam 09/16/2019 Last done: 03/01/2023 Previous Surgical History PAST SURGICAL HISTORY Procedure Laterality Date CIRCUMCISION COLONOSCOPY FLX DX W/COLLJ SPEC WHEN PFRMD 09/17/2019 Colonoscopy EGD 07/2019 FINGER AMPUTATION (SPECIFY DIGIT) HX Right distal thumb and index- accidental. MYRINGOTOMY ASPIRAND/EUSTACHIAN TUBE NFLTJ ANES Myringotomy/tubes MYRINGOTOMY ASPIRAND/EUSTACHIAN TUBE NFLTJ ANES Myringotomy/tubes Family History FAMILY HISTORY Problem Relation Age of Onset Heart Maternal Grandfather [place] Hypertension Mother None Father Heart Maternal Uncle MVP Patient Allergies ALLERGIES No Known Allergies Current Medications Current Outpatient Medications on File Prior to Visit Medication Sig fluvoxaMINE ER (LUVOX CR) 150 mg capsule Take 150 mg by mouth daily at bedtime. pantoprazole DR (PROTONIX) 40 mg tablet Take 1 tablet by mouth once daily. Take on empty stomach, 1/2 hr before meal. (Patient not taking: Reported on 05/29/2024) hydrOXYzine HCl (ATARAX) 10 mg tablet Take 10 mg by mouth three times daily as needed for anxiety. Take 1-2 tablets daily as needed propranolol (INDERAL) 40 mg tablet Take 1 tablet by mouth twice daily. (Patient taking differently: Take 40 mg by mouth two times a day. As needed) No current facility-administered medications on file prior to visit. Social History Social History Tobacco Use Smoking status: Never Smokeless tobacco: Former Types: Chew Quit date: 02/20/2023 Vaping Use Vaping status: Never Used Substance Use Topics Alcohol use: No Drug use: No Review of Symptoms REVIEW OF SYSTEMS See HPI EXAM: BP 118/90 Pulse 80 Resp 18 Wt 134.3 kg (296 lb) BMI 37.59 kg/m? General Appearance: Well appearing, alert, in no acute distress, well-hydrated, well nourished. and Obese. Eyes: Anicteric sclera. Pupils are equally round. Extraocular movements are intact. . Ears: External ears, TM's normal, canals clear. Nose/Sinuses: Negative findings: septum midline with no perforation or bleeding, no sinus tenderness, Positive findings: mucosa erythematous and swollen, purulent rhinorrhea. Oropharynx: Lips, mucosa, and tongue normal, teeth and gums normal, oropharynx normal. Tonsils at 2+ bilaterally without exudate. Neck: Supple, thyroid symmetric, normal size. Has enlarged lymph node on the left that is tender. Lungs: Lungs clear to auscultation. No wheezing, rhonchi, rales.. Heart: RRR without murmur, gallop, or rubs. No ectopy. Abdomen: Normal abdominal exam, Abdomen soft, non-tender. Bowel sounds normal. No masses, organomegaly. Health Maintenance List Depression Screening Never done Influenza Vaccine(1) due on 03/24/2024 Covid-19 Vaccine(2023- season) Never done DTaP,Tdap,Td Vaccine(10 - Td or Tdap) due on 02/14/2032 Hepatitis B Vaccine Completed Hepatitis C Screening Completed HPV Vaccine Aged Out HIV Screening Discontinued Data reviewed A/P ASSESSMENT/PLAN: 1. Tonsillitis - ICD9: 463, ICD10: J03.90 (primary diagnosis) - will treat with Augmenting twice a day for 10 days. 2. Pharyngitis, unspecified etiology - ICD9: 462, ICD10: J02.9 - as above. Along with conservative measures for symptoms. Requested Prescriptions Signed Prescri (more content not included)... [facility] 07-08-2024 CN[facility] Office Visit (UCWSTR ) ALDAIR YEPEZ ([id number]) 1995 M Date Time Provider Department 07/08/24 7:30 AM CLARENCE GILES [facility] During your visit today, we recorded the following information about you: Temperature Pulse Respiration Blood pressure 98.8 degrees 90/minute 16/minute 108/64 Weight 133.9 kg Clarence Giles, PROGRAMMER ANALYST.STRATEGY ASSOCIATE 07/08/2024 8:02 AM Signed Subjective HPI Nontoxic-appearing male presents urgent care chief plaint bilateral ear pain sore throat vomiting headache. Duration of symptoms 1 day. Associate symptoms listed above. Most prominent symptom today is sore throat. No difficulty swallowing his secretion decreased range of motion neck or high fevers. No trismus. Sick contacts unknown. No OTC medication use recently. Past medical history prescription medications allergies reviewed. .Patient presents with: Sore Throat: ST, vomiting and bilateral ear pain x 1 day PAST MEDICAL HISTORY Diagnosis Date SANJAY (generalized anxiety disorder) 08/16/2019 GERD without esophagitis 03/01/2023 Globus sensation 08/16/2019 improved with treatment of anxiety LOCKHART (nonalcoholic steatohepatitis) 03/01/2023 Obesity, Class II, BMI 35-39.9 09/16/2019 Panic attack 08/30/2019 PMH - PAST MEDICAL HISTORY OF 2008 normal color vision Seasonal allergic rhinitis 12/24/2020 Well adult exam 09/16/2019 Last done: 03/01/2023 PAST SURGICAL HISTORY Procedure Laterality Date CIRCUMCISION COLONOSCOPY FLX DX W/COLLJ SPEC WHEN PFRMD 09/17/2019 Colonoscopy EGD 07/2019 FINGER AMPUTATION (SPECIFY DIGIT) HX Right distal thumb and index- accidental. MYRINGOTOMY ASPIRAND/EUSTACHIAN TUBE NFLTJ ANES Myringotomy/tubes MYRINGOTOMY ASPIRAND/EUSTACHIAN TUBE NFLTJ ANES Myringotomy/tubes ALLERGIES Patient has no known allergies. MEDICATIONS fluvoxaMINE ER (LUVOX CR) 150 mg capsule Take 150 mg by mouth daily at bedtime. hydrOXYzine HCl (ATARAX) 10 mg tablet Take 10 mg by mouth three times daily as needed for anxiety. Take 1-2 tablets daily as needed pantoprazole DR (PROTONIX) 40 mg tablet Take 1 tablet by mouth once daily. Take on empty stomach, 1/2 hr before meal. (Patient not taking: Reported on 05/29/2024) propranolol (INDERAL) 40 mg tablet Take 1 tablet by mouth twice daily. (Patient taking differently: Take 40 mg by mouth two times a day. As needed) FAMILY HISTORY Problem Relation Age of Onset Heart Maternal Grandfather [place] Hypertension Mother None Father Heart Maternal Uncle MVP Social History Tobacco Use Smoking status: Never Smokeless tobacco: Former Types: Chew Quit date: 02/20/2023 Vaping Use Vaping status: Never Used Substance Use Topics Alcohol use: No Drug use: No BP 108/64 Pulse 90 Temp 37.1 ?C (98.8 ?F) (Tympanic) Resp 16 Wt 133.9 kg (295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 Dictated: 05/19/231331 Date Transcribed: 05/19/231331 Admissions Coordinator: ANG Signed Normal [facility] XR RIBS/CHEST 3V AP RIB/OBLS /CXR LEFTon 03-04-2023 [facility] XR Ribs - left Views and Anai st PAon 03-04-2023 IMPRESSION: No evide nce of acute left rib fracture. Admissions Coordinator: RICARDO Transcribe Date/Time: Mar 04 2023 10:43A Dictated by : ELINA TORRES MD This examination was interpreted and the report reviewed and electronically signed by: ELINA TORRES MD on Mar 04 2023 10:45AM [facility] DIVISION OF RADIOLOGY * * *Final Report* * * DATE OF EXAM: Mar 04 2023 10:09AM [id number] - XR RIB/CHST 3V AP RIB/OBL/CHST L / PROCEDURE REASON: Rib pain on left side * * * * Physician Interpretation * * * * XR RIB/CHST 3V AP RIB/OBL/CHST L EXAM DATE/TIME: 03/04/2023 10:09 AM COMPARISON: None. CLINICAL INDICATION/HISTORY: Rib pain. TECHNIQUE: AP views centered high and low and oblique view of left ribs are presented for interpretation. PA view of the chest is also present. FINDINGS: There is no evidence of acute left rib fracture. There is no pneumothorax or pleural effusion. The underlying visualized lungs appear normal. DIVISION OF RADIOLOGY Provider, Kat Hughes [facility] - 03/04/2023 * * *Final Report* * * DATE OF EXAM: Mar 04 2023 10:09AM [id number] - XR RIB/CHST 3V AP RIB/OBL/CHST L / PROCEDURE REASON: Rib pain on left side * * * * Physician Interpretation * * * * XR RIB/CHST 3V AP RIB/OBL/CHST L EXAM DATE/TIME: 03/04/2023 10:09 AM COMPARISON: None. CLINICAL INDICATION/HISTORY: Rib pain. TECHNIQUE: AP views centered high and low and oblique view of left ribs are presented for interpretation. PA view of the chest is also present. FINDINGS: There is no evidence of acute left rib fracture. There is no pneumothorax or pleural effusion. The underlying visualized lungs appear normal. IMPRESSION IMPRESSION: No evidence of acute left rib fracture. Admissions Coordinator: PSCB Transcribe Date/Time: Mar 04 2023 10:43A Dictated by : ELINA TORRES MD This examination was interpreted and the report reviewed and electronically signed by: ELINA TORRES MD on Mar 04 2023 10:45AM EST [facility] Radiology Study observation (narrative) [facility] XR Ribs - left Views and Anai st PAOrdered By: [facility]cf Provider on 03-04-2023 [facility] HbA1c (Bld)on 03-02-2023 Average glucose Estimated from glycated hemoglobin (Bld) [Mass/Vol] 108 mg/dL [facility] HbA1c (Bld) [Mass fraction] 5.4 % 4.3 - 5.6 % [facility] Hepatic function 2000 panelo n 03-02-2023 Albumin [Mass/Vol] 4.3 g/dL 3.9 - 4.9 g/dL [facility] ALP [Catalytic activity/Vol] 71 U/L 38 - 113 U/L [facility] ALT [Catalytic activity/Vol] 73 U/L High 10 - 54 U/L [facility] AST [Catalytic activity/Vol] 51 U/L High 14 - 40 U/L [facility] Bilirubin [Mass/Vol] 0.4 mg/dL 0.2 - 1.3 mg/dL [facility] Bilirubin.conjuga mary alice [Mass/Vol] <0.2 mg/dL [facility] Protein [Mass/Vol] 6.8 g/dL 6.3 - 8.0 g/dL [facility] LIPID PANEL, NONFASTINGon Cholesterol [Mass/Vol] 171 mg/dL <200 [facility] HDL Cholesterol, Nonfasting 39 mg/dL Low >39 mg/[facility] LDL Cholesterol, Nonfasting 103 mg/dL High <100 mg/dL [facility] LDL/HDL Ratio, Nonfasting 2.64 mg/dL High <2.54 mg/dL [facility] Non HDL Cholesterol, Nonfasting 132 mg/dL High <130 mg/dL [facility] Total Chol/HDL Ratio, Nonfasting 4.38 mg/dL <5.10 mg/dL [facility] Triglycerides, Nonfasting 144 mg/dL <150 mg/dL [facility] VLDL Cholesterol, Nonfasting 29 mg/dL <30 mg/dL [facility] TSH BLDon 03-02-2023 TSH Qn 2.130 m[IU]/L 0.270 - 4.200 mIU/L [facility] CBC W Auto Differential pane l (Bld)on 03-01-2023 Basophils (Bld) [#/Vol] 0.08 10*3/uL <0.11 k/uL [facility] Basophils/100 WBC (Bld) 1.0 % [facility] Differential cell count method Nom (Bld) Auto [facility] Eosinophils (Bld) [#/Vol] 0.33 10*3/uL <0.46 k/uL [facility] Eosinophils/100 WBC (Bld) 4.3 % [facility] Erythrocyte distribution width (RBC) [Ratio] 13.7 % 11.5 - 15.0 % [facility] Hematocrit (Bld) [Volume fraction] 46.8 % 39.0 - 51.0 % [facility] Hemoglobin (Bld) [Mass/Vol] 15.3 g/dL 13.0 - 17.0 g/dL [facility] Immature granulocytes (Bld) [#/Vol] <0.10 k/uL [facility] Immature granulocytes/100 WBC (Bld) 0.3 % [facility] Lymphocytes (Bld) [#/Vol] 2.17 10*3/uL 1.00 - 4.00 k/uL [facility] Lymphocytes/100 WBC (Bld) 28.1 % [facility] MCH (RBC) [Entitic mass] 28.0 pg 26.0 - 34.0 pg [facility] MCHC (RBC) [Mass/Vol] 32.7 g/dL 30.5 - 36.0 g/dL [facility] MCV (RBC) [Entitic vol] 85.7 fL 80.0 - 100.0 fL [facility] Monocytes (Bld) [#/Vol] 0.76 10*3/uL <0.87 k/uL [facility] Monocytes/100 WBC (Bld) 9.8 % [facility] Neutrophils (Bld) [#/Vol] 4.37 10*3/uL 1.45 - 7.50 k/uL [facility] Neutrophils/100 WBC (Bld) 56.5 % [facility] Nucleated RBC (Bld) [#/Vol] <0.01 k/uL [facility] Nucleated RBC/100 WBC (Bld) [Ratio] 0.0 /100 WBC [facility] Platelet mean volume (Bld) [Entitic vol] 11.4 fL 9.0 - 12.7 fL [facility] Platelets (Bld) [#/Vol] 247 10*3/uL 150 - 400 k/uL [facility] RBC (Bld) [#/Vol] 5.46 10*6/uL 4.20 - 6.0 0 m/uL [facility] WBC (Bld) [#/Vol] 7.73 10*3/uL 3.70 - 11. 00 k/uL [facility] US ABD RIGHT UPPER QUADRANTo n 12-20-2022 [facility] STREP A MOLECULAR (POC)on Procedural Control Valid [facility] Strep A (POCT) Positive Abnormal Negative [facility] No Panel Informationon 05-09 [facility] XR SHOULDER GENERAL 3V OR MO RE AP/TRUE AP/OTHER LEFTon 04-28-2022 [facility] Absolute lymphocyte counton 03-22-2022 Lymphocytes Auto (Unsp spec) [#/Vol] 1.76 10*3/uL 0.83-4.51 [facility] Work Phone: Basophil percentageon 2021 Basophils/100 WBC (Bld) 0.6 % 0-1 [facility] Work Phone: Bilirubin [Mass/Vol] 0.40 mg/dL 0.20-1.00 [facility] Work Phone: Comment on above: For patients on eltr ombopag therapy, use of Dimension [place] TBIL is not recommended. Chloride [Moles/Vol] 105 mmol/L 98-107 [facility] Work Phone: Eosinophils/100 WBC (Bld) 8.4 % 0-5 [facility] Work Phone: Glucose [Mass/Vol] 94 mg/dL 74-106 [facility] Work Phone: Neutrophils (Bld) [#/Vol] 5.9 10*3/uL 2.0-7.7 [facility] Work Phone: Neutrophils/100 WBC (Bld) 61.0 % 47-70 [facility] Work Phone: Potassium [Moles/Vol] 4.2 mmol/L 3.5-5.1 [facility] Work Phone: Protein [Mass/Vol] 7.8 g/dL 6.4-8.2 [facility] Work Phone: [phone] Sodium [Moles/Vol] 140 mmol/L 136-145 [facility] Work Phone: WBC (Bld) [#/Vol] 9.6 10*3/uL 4.4-11.0 [facility] Work Phone: Blood erythrocytes count (nu mber/volume)on 03-22-2022 RBC (Bld) [#/Vol] 4.89 10*6/uL 4.6-6.2 [facility] Work Phone: Blood hemoglobin measurement (mass/volume)on 03-22-2022 Hemoglobin (Bld) [Mass/Vol] 14.5 g/dL 13.0-16.5 [facility] Work Phone: Blood lymphocytes/100 leukoc yteson 03-22-2022 Lymphocytes/100 WBC (Bld) 18.3 % 19-41 [facility] Work Phone: Blood monocytes/100 leukocyt eson 03-22-2022 Monocytes/100 WBC (Bld) 11.3 % 0-10 [facility] Work Phone: Blood platelet mean volumeon 03-22-2022 Platelet mean volume (Bld) [Entitic vol] 10.2 fL 6.2-12.0 [facility] Work Phone: Determination of erythrocyte mean corpuscular volume (MCV)on 03-22-2022 MCV (RBC) [Entitic vol] 90.6 fL 80-94 [facility] Work Phone: Hematocrit Auto (Bld) [Volum e fraction]on 03-22-2022 Hematocrit (Bld) [Volume fraction] 44.3 % 40-54 [facility] Work Phone: Laboratory - Chemistry and C hemistry - challengeon 03-22-2022 ALP [Catalytic activity/Vol] 96 U/L 45-117 [facility] Work Phone: ALT [Catalytic activity/Vol] 77 U/L 16-61 [facility] Work Phone: CO2 [Moles/Vol] 28.0 mmol/L 21.0-32.0 [facility] Work Phone: Globulin (S) [Mass/Vol] 4.2 g/dL 2.2-4.2 [facility] Work Phone: Urea nitrogen/Creatini ne [Mass ratio] 12.6 mg/mg 10-20 [facility] Work Phone: Laboratory - Hematology and Cell countson 03-22-2022 Erythrocyte distribution width (RBC) [Entitic vol] 45.1 fL 35.1-43.9 [facility] Work Phone: Erythrocyte distribution width (RBC) [Ratio] 13.5 % 11.6-14.6 [facility] Work Phone: Immature granulocytes/100 WBC (Bld) 0.400 % 0.0-0.9 [facility] Work Phone: Comment on above: IG% - Immature Granu locytes (promyelocytes, myelocytes and metamyelocytes) > 1% indicates that a LEFT SHIFT is Present. MCH (RBC) [Entitic mass] 29.7 pg 27.0-32.0 [facility] Work Phone: Nucleated RBC/100 WBC (Bld) [Ratio] 0 % 0-5 [facility] Work Phone: MCHC Auto (RBC) [Mass/Vol]on 03-22-2022 MCHC (RBC) [Mass/Vol] 32.7 g/dL 32-36 [facility] Work Phone: No Panel Informationon 03-22 Estimated GFR (MDRD) Amer 111 mL/min >60 [facility] Work Phone: Comment on above: GFR Calc Estimated GFR (MDRD) Non-Af Amer 92 mL/min >60 [facility] Work Phone: Comment on above: Non- GFR Calc Platelets bldon 03-22-2022 Platelets (Bld) [#/Vol] 262 10*3/uL 150-450 [facility] Work Phone: Serum or plasma albumin benigno urement (mass/volume)on 03-22-2022 Albumin [Mass/Vol] 3.6 g/dL 3.2-5.0 [facility] Work Phone: Serum or plasma albumin/glob ulin mass ratioon 03-22-2022 Albumin/Globulin [Mass ratio] 0.9 {ratio} 0.9-2.4 [facility] Work Phone: Serum or plasma calcium benigno urement (mass/volume)on 03-22-2022 Calcium [Mass/Vol] 9.0 mg/dL 8.5-10.1 [facility] Work Phone: Serum or plasma creatinine m easurement (mass/volume)on 03-22-2022 Creatinine [Mass/Vol] 1.03 mg/dL 0.70-1.30 [facility] Work Phone: Comment on above: The validity of the calculated GFR & GFRAA in patients over 70 years has not been determined. Clinical correlation is essential. Serum or plasma urea nitroge n measurement (mass/volume)on 03-22-2022 Urea nitrogen [Mass/Vol] 13 mg/dL 7-18 [facility] Work Phone: Thin prep Papanicolaou smear with manual screeningon 03-22-2022 Thin prep Papanicolaou smear with manual screening 38 U/L 15-37 [facility] Work Phone: Thin prep Papanicolaou smear with manual screening 7 5-15 [facility] Work Phone: UA DIP, URINE (POC)on 2021 BILIRUBIN UA (POCT) Negative Negative [facility] CLARITY UA (POCT) Cloudy [facility] COLOR UA (POCT) Kelly [facility] GLUCOSE UA (POCT) Negative Negative mg/dL [facility] HEMOGLOBIN/BLOOD UA (POCT) Large Abnormal Negative [facility] KETONE UA (POCT) Negative Negative mg/dL [facility] LEUKOCYTES UA (POCT) Large Abnormal Negative [facility] NITRITE UA (POCT) Positive Abnormal Negative [facility] PH UA (POCT) 5.5 4.5 - 8.0 [facility] Protein Ql (U) 100 mg/dL Abnormal Negative mg/dL [facility] SPECIFIC GRAVITY UA (POCT) >=1.030 1.005 - 1.030 [facility] UROBILINOGEN UA (POCT) 0.2 E.U./dL Normal E.U./dL [facility] Vital Signs Date Time Vital Sign Value Performing Clinician Facility 08-02-2024 10:25-0500 Body mass index (BMI) [Ratio] 37.59 kg/m2 Clarence Rodriguez MD Work Phone: [facility] 08-02-2024 10:25-0500 Body temperature 98.49 [degF] Clarence Rodriguez MD Work Phone: [facility] 08-02-2024 10:25-0500 Body weight 134.26 kg Clarence Rodriguez MD Work Phone: [facility] 08-02-2024 10:25-0500 Diastolic blood pressure 90 mm[Hg] Clarence Rodriguez MD Work Phone: [facility] 08-02-2024 10:25-0500 Heart rate 80 /min Clarence Rodriguez MD Work Phone: [facility] 08-02-2024 10:25-0500 Respiratory rate 18 /min Clarence Rodriguez MD Work Phone: [facility] 08-02-2024 10:25-0500 SaO2% (BldA) [Mass fraction] 97 % Clarence Rodriguez MD Work Phone: [facility] 08-02-2024 10:25-0500 Systolic blood pressure 118 mm[Hg] Clarence Rodriguez MD Work Phone: [facility] 07-08-2024 07:33-0500 Body mass index (BMI) [Ratio] 37.48 kg/m2 Clarence Giles PROGRAMMER ANALYST.STRATEGY ASSOCIATE Work Phone: [facility] 07-08-2024 07:33-0500 Body temperature 98.8 [degF] Clarence Giles PROGRAMMER ANALYST.STRATEGY ASSOCIATE Work Phone: [facility] 07-08-2024 07:33-0500 Body weight 133.87 kg Clarence Giles PROGRAMMER ANALYST.STRATEGY ASSOCIATE Work Phone: [facility] 07-08-2024 07:33-0500 Diastolic blood pressure 64 mm[Hg] Clarence Giles PROGRAMMER ANALYST.STRATEGY ASSOCIATE Work Phone: [facility] 07-08-2024 07:33-0500 Heart rate 90 /min Clarence Giles PROGRAMMER ANALYST.STRATEGY ASSOCIATE Work Phone: [facility] 07-08-2024 07:33-0500 Respiratory rate 16 /min Claernce Giles PROGRAMMER ANALYST.STRATEGY ASSOCIATE Work Phone: [facility] 07-08-2024 07:33-0500 SaO2% (BldA) [Mass fraction] 97 % Clarence Giles PROGRAMMER ANALYST.STRATEGY ASSOCIATE Work Phone: [facility] 07-08-2024 07:33-0500 Systolic blood pressure 108 mm[Hg] Clarence Chan PROGRAMMER ANALYST.STRATEGY ASSOCIATE Work Phone: [facility] 05-29-2024 14:46-0500 Body mass index (BMI) [Ratio] 37.49 kg/m2 Case Moomaw PROGRAMMER ANALYST.STRATEGY ASSOCIATE Work Phone: [facility] 05-29-2024 14:46-0500 Body temperature 97.81 [degF] Case Moomaw PROGRAMMER ANALYST.STRATEGY ASSOCIATE Work Phone: [facility] 05-29-2024 14:46-0500 Body weight 133.9 kg Case Moomaw PROGRAMMER ANALYST.STRATEGY ASSOCIATE Work Phone: [facility] 05-29-2024 14:46-0500 Diastolic blood pressure 78 mm[Hg] Case Moomaw PROGRAMMER ANALYST.STRATEGY ASSOCIATE Work Phone: [facility] 05-29-2024 14:46-0500 Heart rate 80 /min Case Moomaw PROGRAMMER ANALYST.STRATEGY ASSOCIATE Work Phone: [facility] 05-29-2024 14:46-0500 Respiratory rate 16 /min Case Moomaw PROGRAMMER ANALYST.STRATEGY ASSOCIATE Work Phone: [facility] 05-29-2024 14:46-0500 SaO2% (BldA) [Mass fraction] 97 % Case Moomaw PROGRAMMER ANALYST.STRATEGY ASSOCIATE Work Phone: [facility] 05-29-2024 14:46-0500 Systolic blood pressure 112 mm[Hg] Case Moomaw PROGRAMMER ANALYST.STRATEGY ASSOCIATE Work Phone: [facility] 11-13-2023 19:16-0400 Body temperature 97.9 [degF] [facility] 11-13-2023 19:16-0400 Diastolic blood pressure 74 mm[Hg] [facility] 11-13-2023 19:16-0400 Heart rate 80 /min [facility] 11-13-2023 19:16-0400 Respiratory rate 16 /min [facility] 11-13-2023 19:16-0400 SaO2% (BldA) [Mass fraction] 97 % [facility] 11-13-2023 19:16-0400 Systolic blood pressure 130 mm[Hg] [facility] 11-13-2023 18:28-0400 Body height 188.01 cm [facility] 11-13-2023 18:28-0400 Body mass index (BMI) [Ratio] 37.8 kg/m2 [facility] 11-13-2023 18:28-0400 Body weight 133.94 kg [facility] 11-13-2023 18:02-0400 Body mass index (BMI) [Ratio] 37.54 kg/m2 Zuleyma Praisler-Wood PROGRAMMER ANALYST.STRATEGY ASSOCIATE Work Phone: [facility] 11-13-2023 18:02-0400 Body temperature 98.01 [degF] Zuleyma Praisler-Wood PROGRAMMER ANALYST.STRATEGY ASSOCIATE Work Phone: [facility] 11-13-2023 18:02-0400 Body weight 134.1 kg Zuleyma Praisler-Wood PROGRAMMER ANALYST.STRATEGY ASSOCIATE Work Phone: [facility] 11-13-2023 18:02-0400 Diastolic blood pressure 68 mm[Hg] Zuleyma Praisler-Wood PROGRAMMER ANALYST.STRATEGY ASSOCIATE Work Phone: [facility] 11-13-2023 18:02-0400 Heart rate 77 /min Zuleyma Praisler-Wood PROGRAMMER ANALYST.STRATEGY ASSOCIATE Work Phone: [facility] 11-13-2023 18:02-0400 Respiratory rate 21 /min Zuleyma Praisler-Wood PROGRAMMER ANALYST.STRATEGY ASSOCIATE Work Phone: [facility] 11-13-2023 18:02-0400 SaO2% (BldA) [Mass fraction] 98 % Zuleyma Praisler-Wood PROGRAMMER ANALYST.STRATEGY ASSOCIATE Work Phone: [facility] 11-13-2023 18:02-0400 Systolic blood pressure 124 mm[Hg] Zuleyma Praisler-Wood PROGRAMMER ANALYST.STRATEGY ASSOCIATE Work Phone: [facility] 05-31-2023 18:22-0500 Body weight 125.65 kg Clarence Rodriguez MD Work Phone: [facility] 05-31-2023 18:22-0500 Diastolic blood pressure 74 mm[Hg] Clarence Rodriguez MD Work Phone: [facility] 05-31-2023 18:22-0500 Heart rate 62 /min Clarence Rodriguez MD Work Phone: [facility] 05-31-2023 18:22-0500 Respiratory rate 16 /min Clarence Rodriguez MD Work Phone: [facility] 05-31-2023 18:22-0500 Systolic blood pressure 114 mm[Hg] Clarence Rodriguez MD Work Phone: [facility] 04-20-2023 09:30-0400 Body temperature 97 [degF] Clarence Rodriguez MD Work Phone: [facility] 04-20-2023 09:30-0400 Body weight 125.19 kg Clarence Rodriguez MD Work Phone: [facility] 04-20-2023 09:30-0400 Diastolic blood pressure 64 mm[Hg] Clarence Rodriguez MD Work Phone: [facility] 04-20-2023 09:30-0400 Heart rate 58 /min Clarence Rodriguez MD Work Phone: [facility] 04-20-2023 09:30-0400 Respiratory rate 16 /min Clarence Rodriguez MD Work Phone: [facility] 04-20-2023 09:30-0400 Systolic blood pressure 110 mm[Hg] Clarence Rodriguez MD Work Phone: [facility] 03-04-2023 09:27-0400 Body temperature 97.39 [degF] Uma Jimenez APRN.STRATEGY ASSOCIATE Work Phone: [facility] 03-04-2023 09:27-0400 Body weight 132.45 kg Uma Jimenez PROGRAMMER ANALYST.STRATEGY ASSOCIATE Work Phone: [facility] 03-04-2023 09:27-0400 Diastolic blood pressure 62 mm[Hg] Uma Jimenez PROGRAMMER ANALYST.STRATEGY ASSOCIATE Work Phone: [facility] 03-04-2023 09:27-0400 Heart rate 74 /min Uma Jimenez PROGRAMMER ANALYST.STRATEGY ASSOCIATE Work Phone: [facility] 03-04-2023 09:27-0400 Respiratory rate 16 /min Uma Jimenez PROGRAMMER ANALYST.STRATEGY ASSOCIATE Work Phone: [facility] 03-04-2023 09:27-0400 SaO2% (BldA) [Mass fraction] 97 % Uma Jimenez PROGRAMMER ANALYST.STRATEGY ASSOCIATE Work Phone: [facility] 03-04-2023 09:27-0400 Systolic blood pressure 112 mm[Hg] Uma Jimenez PROGRAMMER ANALYST.STRATEGY ASSOCIATE Work Phone: [facility] 03-01-2023 16:09-0400 Body weight 132.9 kg Clarence Rodriguez MD Work Phone: [facility] 03-01-2023 16:09-0400 Diastolic blood pressure 84 mm[Hg] Clarence Rodriguez MD Work Phone: [facility] 03-01-2023 16:09-0400 Heart rate 70 /min Clarence Rodriguez MD Work Phone: [facility] 03-01-2023 16:09-0400 Respiratory rate 16 /min Clarence Rodriguez MD Work Phone: [facility] 03-01-2023 16:09-0400 Systolic blood pressure 122 mm[Hg] Clarence Rodriguez MD Work Phone: [facility] 10-19-2022 09:22-0400 Body temperature 98.01 [degF] Josselyn Hay PROGRAMMER ANALYST.STRATEGY ASSOCIATE Work Phone: [facility] 10-19-2022 09:22-0400 Body weight 156.67 kg Josselyn Hay APRN.STRATEGY ASSOCIATE Work Phone: [facility] 10-19-2022 09:22-0400 Diastolic blood pressure 84 mm[Hg] Josselyn Hay PROGRAMMER ANALYST.STRATEGY ASSOCIATE Work Phone: [facility] 10-19-2022 09:22-0400 Heart rate 102 /min Josselyn Callow PROGRAMMER ANALYST.STRATEGY ASSOCIATE Work Phone: [facility] 10-19-2022 09:22-0400 Respiratory rate 18 /min Josselyn Callow PROGRAMMER ANALYST.STRATEGY ASSOCIATE Work Phone: [facility] 10-19-2022 09:22-0400 SaO2% (BldA) [Mass fraction] 97 % Josselyn Callow PROGRAMMER ANALYST.STRATEGY ASSOCIATE Work Phone: [facility] 10-19-2022 09:22-0400 Systolic blood pressure 122 mm[Hg] Josselyn Callow PROGRAMMER ANALYST.STRATEGY ASSOCIATE Work Phone: [facility] 03-22-2022 13:46-0400 Body weight 151.05 kg Nae Haagen PROGRAMMER ANALYST.STRATEGY ASSOCIATE Work Phone: [facility] 03-22-2022 13:46-0400 Diastolic blood pressure 100 mm[Hg] Nae Haagen PROGRAMMER ANALYST.STRATEGY ASSOCIATE Work Phone: [facility] 03-22-2022 13:46-0400 Heart rate 98 /min Nae Haagen PROGRAMMER ANALYST.STRATEGY ASSOCIATE Work Phone: [facility] 03-22-2022 13:46-0400 Respiratory rate 18 /min Nae Haagen PROGRAMMER ANALYST.STRATEGY ASSOCIATE Work Phone: [facility] 03-22-2022 13:46-0400 SaO2% (BldA) [Mass fraction] 98 % Nae Haagen PROGRAMMER ANALYST.STRATEGY ASSOCIATE Work Phone: [facility] 03-22-2022 13:46-0400 Systolic blood pressure 146 mm[Hg] Nae Haagen PROGRAMMER ANALYST.STRATEGY ASSOCIATE Work Phone: [facility] 03-15-2022 11:19-0400 Body height 187.96 cm [facility] Work Phone: 03-15-2022 11:19-0400 Body mass index (BMI) [Ratio] 43.4 kg/m2 [facility] Work Phone: 03-15-2022 11:19-0400 Body temperature 97.9 [degF] [facility] Work Phone: 03-15-2022 11:19-0400 Body weight 153.31 kg [facility] Work Phone: 03-15-2022 11:19-0400 Diastolic blood pressure 96 mm[Hg] [facility] Work Phone: 03-15-2022 11:19-0400 Heart rate 89 /min [facility] Work Phone: 03-15-2022 11:19-0400 Respiratory rate 18 /min [facility] Work Phone: 03-15-2022 11:19-0400 SaO2% (BldA) [Mass fraction] 98 % [facility] Work Phone: 03-15-2022 11:19-0400 Systolic blood pressure 148 mm[Hg] [facility] Work Phone: 03-15-2022 11:00-0400 Body temperature 97.5 [degF] Adriana Gutierres PROGRAMMER ANALYST.STRATEGY ASSOCIATE Work Phone: [facility] 03-15-2022 11:00-0400 Body weight 153.77 kg Adriana Gutierres PROGRAMMER ANALYST.STRATEGY ASSOCIATE Work Phone: [facility] 03-15-2022 11:00-0400 Diastolic blood pressure 82 mm[Hg] Adriana Gutierres PROGRAMMER ANALYST.STRATEGY ASSOCIATE Work Phone: [facility] 03-15-2022 11:00-0400 Heart rate 94 /min Adriana Gutierres PROGRAMMER ANALYST.STRATEGY ASSOCIATE Work Phone: [facility] 03-15-2022 11:00-0400 Respiratory rate 16 /min Adriana Gutierres PROGRAMMER ANALYST.STRATEGY ASSOCIATE Work Phone: [facility] 03-15-2022 11:00-0400 SaO2% (BldA) [Mass fraction] 97 % Adriana Gutierres PROGRAMMER ANALYST.STRATEGY ASSOCIATE Work Phone: [facility] 03-15-2022 11:00-0400 Systolic blood pressure 128 mm[Hg] Adriana Gutierres NOE Work Phone: [facility] 02-13-2022 19:51-0400 Body height 187.96 cm [facility] Work Phone: 02-13-2022 19:51-0400 Body mass index (BMI) [Ratio] 43.2 kg/m2 [facility] Work Phone: 02-13-2022 19:51-0400 Body temperature 94 [degF] [facility] Work Phone: 02-13-2022 19:51-0400 Body weight 153 kg [facility] Work Phone: 02-13-2022 19:51-0400 Diastolic blood pressure 95 mm[Hg] [facility] Work Phone: 02-13-2022 19:51-0400 Heart rate 95 /min [facility] Work Phone: 02-13-2022 19:51-0400 Respiratory rate 16 /min [facility] Work Phone: 02-13-2022 19:51-0400 SaO2% (BldA) [Mass fraction] 98 % [facility] Work Phone: 02-13-2022 19:51-0400 Systolic blood pressure 147 mm[Hg] [facility] Work Phone: 12-15-2021 12:02-0400 Body temperature 98.1 [degF] Caryl Green PA-C Work Phone: [facility] 12-15-2021 12:02-0400 Body weight 150.59 kg Caryl Green PA-C Work Phone: [facility] 12-15-2021 12:02-0400 Diastolic blood pressure 86 mm[Hg] Caryl Green PA-C Work Phone: [facility] 12-15-2021 12:02-0400 Heart rate 76 /min Caryl BRITOC Work Phone: [facility] 12-15-2021 12:02-0400 Respiratory rate 18 /min Caryl LONGORIA-C Work Phone: [facility] 12-15-2021 12:02-0400 Systolic blood pressure 116 mm[Hg] Caryl LONGORIA-C Work Phone: [facility] Encounters Encounter Date Encounter Type Care Provider Facility Start: 08-02-2024 End: 08-02-2024 ambulatory CLARENCE Hwang [facility] Facility:[facility] Start: 08-02-2024 End: 08-02-2024 Patient encounter procedure Clarence Rodriguez MD Work Phone: [facility] [place] Comment on above: Tonsillitis (Primary Dx); Pharyngitis, unspecified etiology Start: 07-08-2024 End: 07-08-2024 [facility] CLARENCE RODRIGUEZ Facility:[facility] Start: 07-08-2024 End: 07-08-2024 Office outpatient visit 25 minutes Clarence Giles APRN.STRATEGY ASSOCIATE Work Phone: [facility] Comment on above: Sore throat (Primary Dx); Strep pharyngitis Start: 05-29-2024 End: 05-29-2024 [facility] CLARENCE RODRIGUEZ Facility:[facility] Start: 05-29-2024 End: 05-29-2024 Patient encounter procedure Case Garrett APRN.STRATEGY ASSOCIATE Work Phone: [facility] Comment on above: Sore throat (Primary Dx); Acute otitis media, right Start: 11-13-2023 End: 11-13-2023 Emergency department patient visit Caryl LONGORIA Facility:[facility] Start: 11-13-2023 End: 11-13-2023 Emergency department patient visit [facility]-Emergency Department Work Phone: Start: 11-13-2023 End: 11-13-2023 ambulatory CLARENCE RODRIGUEZ Facility:[facility] Start: 11-13-2023 End: 11-13-2023 Patient encounter procedure Zuleyma Aldana APRN.CNP Work Phone: [facility] Comment on above: Exposure to blood (P rimary Dx) Start: 08-09-2023 End: 08-09-2023 ambulatory CLARENCE RODRIGUEZ Facility:[facility] Start: 05-31-2023 End: 05-31-2023 Patient encounter procedure Clarence Rodriguez MD Work Phone: [facility] Comment on above: GERD without esophag itis (Primary Dx); Encounter for immunization Start: 05-19-2023 ambulatory Caryl LONGORIA Fac ility:[facility] Start: 05-19-2023 Non-patient / Non-visit PA Ran LONGORIA Work Phone: [facility] Start: 05-19-2023 End: 05-19-2023 ambulatory SWATI LONGORIA Work Phone: [facility] Work Phone: Start: 05-19-2023 End: 05-19-2023 Patient encounter procedure SWATI LONGORIA Work Phone: [facility]-Cardiovascular Services Work Phone: Start: 05-03-2023 ambulatory Clarence miller MD Work Phone: [facility] Comment on above: Wait time Start: 04-20-2023 End: 04-20-2023 Patient encounter procedure Clarence Rodriguez MD Work Phone: [facility] Comment on above: Atypical chest pain (Primary Dx); GERD without esophagitis; Family history of early CAD Start: 04-05-2023 ambulatory Clarence miller MD Work Phone: [facility] Comment on above: Stomach meds Start: 03-04-2023 End: 03-04-2023 Subsequent hospital visit by physician Mojgan [facility] Work Phone: Radiology Comment on above: Rib pain on left cristóbal e [R07.81] Start: 03-04-2023 End: 03-04-2023 Patient encounter procedure Uma Jimenez APRN.STRATEGY ASSOCIATE Work Phone: [facility] Comment on above: Rib pain on left cristóbal e (Primary Dx) Start: 03-03-2023 Telephone encounter Caryl mendoza PA-C Work Phone: [facility] [place] Comment on above: Results Start: 03-01-2023 End: 03-01-2023 Patient encounter procedure Clarence Rodriguez MD Work Phone: Family [facility] [place] Comment on above: Well adult exam (Jackie jenny Dx); LOCKHART (nonalcoholic steatohepatitis); SANJAY (generalized anxiety disorder); Panic attack; Screening for diabetes mellitus; Elevated LFTs; GERD without esophagitis; Heat intolerance; Candidiasis Start: 03-01-2023 End: 03-01-2023 Patient encounter status Clarence Rodriguez MD Work Phone: [facility] Work Phone: Start: 01-05-2023 Refill Tayler hussein APRN.STRATEGY ASSOCIATE Work Phone: Psychiatry Comment on above: Refill Request Start: 12-21-2022 Telephone encounter Caryl mendoza PA-C Work Phone: Family [facility] [place] Comment on above: Results Start: 12-20-2022 End: 12-20-2022 Subsequent hospital visit by physician [facility] Work Phone: Radiology Comment on above: Elevated LFTs [R79.8 9] Start: 11-02-2022 Refill Tayler hussein PROGRAMMER ANALYST.STRATEGY ASSOCIATE Work Phone: Psychiatry Comment on above: Refill Request Start: 10-19-2022 End: 10-19-2022 Patient encounter procedure Josselyn Leungausten PROGRAMMER ANALYST.STRATEGY ASSOCIATE Work Phone: [facility] Comment on above: Sorethroat (Primary Dx) Start: 09-09-2022 End: 09-09-2022 [facility] Tayler Gonsalez PROGRAMMER ANALYST.STRATEGY ASSOCIATE Work Phone: Psychiatry Comment on above: Panic disorder witho ut agoraphobia (Primary Dx) Start: 08-04-2022 Refill Tayler Titus u PROGRAMMER ANALYST.STRATEGY ASSOCIATE Work Phone: Psychiatry Comment on above: Refill Request Start: 07-15-2022 End: 07-15-2022 [facility] Tayler Gonsalez PROGRAMMER ANALYST.STRATEGY ASSOCIATE Work Phone: Psychiatry Comment on above: Panic disorder witho ut agoraphobia (Primary Dx) Start: 06-24-2022 Refill Tayler Titus u PROGRAMMER ANALYST.STRATEGY ASSOCIATE Work Phone: Psychiatry Comment on above: Refill Request Start: 05-10-2022 ambulatory Anuel Mckenna MD Work Phone: Orthopaedics Comment on above: Question regarding M RI SHOULDER WO IVCON LT Start: 05-09-2022 End: 05-09-2022 Subsequent hospital visit by physician Mri Radio [facility] (I-Stat/1.5t) Work Phone: Radiology Comment on above: Acute pain of left s houlder [M25.512] Start: 04-28-2022 End: 04-28-2022 Subsequent hospital visit by physician Xr [facility] Work Phone: Radiology Comment on above: Acute pain of left s houlder [M25.512] Start: 04-28-2022 End: 04-28-2022 Patient encounter procedure Anuel Mckenna MD Work Phone: Orthopaedics Comment on above: Acute pain of left s houlder (Primary Dx); Traumatic complete tear of left rotator cuff, initial encounter Start: 04-08-2022 Telephone encounter Nae berger PROGRAMMER ANALYST.STRATEGY ASSOCIATE Work Phone: Family Medicine [place] Comment on above: Orders Start: 04-07-2022 End: 04-07-2022 ambulatory Cesar Callaway [facility] Physical Therapy Comment on above: Acute pain of left s houlder Start: 03-29-2022 ambulatory Nae Domínguez APRN.STRATEGY ASSOCIATE Work Phone: Family Medicine [place] Comment on above: Physical therapy Start: 03-25-2022 Telephone encounter Nae berger PROGRAMMER ANALYST.STRATEGY ASSOCIATE Work Phone: [facility] Comment on above: Results Start: 03-23-2022 ambulatory Nae Domínguez PROGRAMMER ANALYST.STRATEGY ASSOCIATE Work Phone: [facility] Comment on above: Pain relief Start: 03-22-2022 End: 03-22-2022 ambulatory [facility] Work Phone: Start: 03-22-2022 End: 03-22-2022 Patient encounter procedure [facility]-Cat Scan, [facility] Start: 03-22-2022 Telephone encounter Nae berger PROGRAMMER ANALYST.STRATEGY ASSOCIATE Work Phone: [facility] Comment on above: Results Start: 03-22-2022 End: 03-22-2022 Office outpatient visit 25 minutes Nae Domínguez PROGRAMMER ANALYST.STRATEGY ASSOCIATE Work Phone: [facility] Comment on above: Flank pain (Primary Dx); Acute cystitis with hematuria; Acute pain of left shoulder Start: 03-15-2022 End: 03-15-2022 Emergency department patient visit [facility]Emergency Department Start: 03-15-2022 End: 03-15-2022 Patient encounter procedure Adriana Martínezgs PROGRAMMER ANALYST.STRATEGY ASSOCIATE Work Phone: [facility] Comment on above: Injury of head, init ial encounter (Primary Dx); Accident caused by farm tractor, initial encounter Start: 02-21-2022 End: 02-21-2022 [facility] Tayler Gonsalez PROGRAMMER ANALYST.STRATEGY ASSOCIATE Work Phone: Psychiatry Comment on above: Panic disorder witho ut agoraphobia (Primary Dx) Start: 02-13-2022 End: 02-13-2022 Emergency department patient visit [facility]Emergency Department Start: 01-21-2022 End: 01-21-2022 Patient encounter procedure Grey SOLITARIOW Work Phone: Psychology Comment on above: Severe anxiety (Prim sabrina Dx); Mild depression Start: 01-10-2022 Telephone encounter Grey MAX Work Phone: Psychology Comment on above: Consult ([facility] C justino) Start: 12-30-2021 Telephone encounter Grey Na ll WASTEWATER PROCESS ENGINEER Work Phone: Psychology Comment on above: Consult ([facility] Juan Ramon badillo) Start: 12-28-2021 Telephone encounter Grey workman WASTEWATER PROCESS ENGINEER Work Phone: Psychology Comment on above: Consult ([facility] Pt Out reach F/U) Start: 12-27-2021 Telephone encounter Grey workman WASTEWATER PROCESS ENGINEER Work Phone: Psychology Comment on above: Consult ([facility] Pt Out reach F/U) Start: 12-23-2021 Telephone encounter Clarence Rodriguez MD Work Phone: Family Medicine [place] Comment on above: Patient Question Start: 12-22-2021 Telephone encounter Grey workman WASTEWATER PROCESS ENGINEER Work Phone: Psychology Comment on above: Consult (Initial [facility] Pt Outreach) Start: 12-21-2021 Telephone encounter Clarence Rodriguez MD Work Phone: Family [facility] [place] Comment on above: Patient Update; Medi cation Problem Patient Update Start: 12-15-2021 End: 12-15-2021 Patient encounter procedure Caryl Green PA-C Work Phone: Family [facility] [place] Comment on above: SANJAY (generalized anx iety disorder) (Primary Dx); Panic attack; Seasonal allergic rhinitis, unspecified trigger Start: 12-10-2021 Telephone encounter Caryl mendoza PA-C Work Phone: Family [facility] [place] Comment on above: Medication Question Start: 12-02-2021 Refill Clarence miller MD Work Phone: Family Medicine [place] Comment on above: Refill Request Refill Start: 03-19-2021 Patient encounter status Clarence Rodriguez MD Work Phone: [facility] Work Phone: Procedures Date Procedure Procedure Detail Performing Clinician Start: 07-08-2024 STREP A MOLECULAR (POC) Onel Chambers MD Work Phone: Start: 05-29-2024 STREP A MOLECULAR (POC) Adriana Gutierres APRN.STRATEGY ASSOCIATE Work Phone: Start: 05-31-2023 INFLUENZA VACCINE, A GE 6 MO - 64 YR, QUADRIVALENT (AFLURIA, FLULAVAL, FLUZONE) Clarence Rodriguez MD Work Phone: Start: 03-04-2023 Radex ribs uni w/pos teroant ch minimum 3 views Uma Jimenez PROGRAMMER ANALYST.STRATEGY ASSOCIATE Work Phone: Start: 12-20-2022 Us abdominal real ti me w/image limited Caryl Green PA-C Work Phone: Start: 10-19-2022 STREP A MOLECULAR (POC) [facility] Provider Start: 05-09-2022 Mri any jt upper ext remity w/o contrast matrl Anuel Mckenna MD Work Phone: Start: 04-28-2022 Radex shoulder compl ete minimum 2 views Anuel Mckenna MD Work Phone: Start: 03-22-2022 CT of abdomen and pe lvis without contrast Start: 03-22-2022 Urnls dip stick/tabl et rgnt auto w/o microscopy Nae Domínguez PROGRAMMER ANALYST.STRATEGY ASSOCIATE Work Phone: Start: 03-15-2022 X-ray of chest posteroanterior view Start: 03-15-2022 Plain X-ray of shoulder Start: 02-13-2022 Plain x-ray of hand Plan of Treatment Date Care Activity Detail Author Start: 02-14-2032 Urine microalbumin profile DTaP,Tdap,Td Vaccine (10 - Td or Tdap) [facility] Start: 01-04-2031 Urine microalbumin profile [facility] Start: 03-24-2024 Covid-19 Vaccine ( season) Covid-19 Vaccine ( season) [facility] Start: 03-24-2024 Covid-19 Vaccine ( season) Covid-19 Vaccine ( season) [facility] Start: 03-24-2024 Influenza vaccination Influenza Vacc ine (#1) [facility] Start: 12-13-2023 COVID-19 VACCINE (#1) COVID-19 VACCI NE (#1) [facility] Comment on above: Postponed from 08/05 (Declined at this time) Start: 11-13-2023 [facility] Start: 11-13-2023 Hepatitis B surface antigen measurement [facility] Start: 11-13-2023 Hepatitis C antibody measurement [facility] Start: 07-24-2023 Behavioral Health Screening Behavioral Health Screening [facility] Start: 07-23-2023 DEPRESSION ASSESSMENT DEPRESSION ASS [place] Comment on above: Postponed from 07/24 (Declined at this time) Start: 03-24-2023 Covid-19 Vaccine () Covid-19 Vaccine () [facility] Start: 03-24-2023 Influenza vaccination [facility] Start: 12-21-2022 End: 02-20-2023 LIPID PANEL, NONFASTING LIPID PANEL, NONFASTING Lab Routine Fatty liver Encounter for lipid screening for cardiovascular disease Expected: 12/21/2022, Expires: 02/20/2023 [facility] Work Phone: Comment on above: Expected: 12/21/2022 , Expires: 02/20/2023 Start: 07-24-2022 [facility] Start: 03-24-2022 Influenza vaccination [facility] Start: 03-22-2022 End: 05-22-2022 CBC W Auto Differential panel - Blood CBC + DIFF Lab STAT Flank pain Expected: 03/22/2022, Expires: 05/22/2022 [facility] Work Phone: Comment on above: Expected: 03/22/2022 , Expires: 05/22/2022 Start: 03-22-2022 End: 05-22-2022 Comprehensive metabolic 2000 panel - Serum or Plasma COMP METABOLIC PANEL Lab STAT Flank pain Expected: 03/22/2022, Expires: 05/22/2022 [facility] Work Phone: Comment on above: Expected: 03/22/2022 , Expires: 05/22/2022 Start: 01-04-2022 COVID-19 VACCINE (#1) COVID-19 VACCI NE (#1) [facility] Comment on above: Postponed from 02/02 (Declined at this time) Start: 01-04-2022 HEPATITIS C SCREENING HEPATITIS C [facility] Comment on above: Postponed from 02/02 (Declined at this time) Start: 07-24-2021 DEPRESSION ASSESSMENT DEPRESSION ASS ESSMENT [facility] Start: 2013 Depression Screening Depression Scre ening [facility] Start: 2013 HEPATITIS C SCREENING HEPATITIS C SC [facility] Start: 2009 PEDS TO ADULT TRANSITION ANNUAL ASSESSMENT PEDS TO ADULT TRANSITION ANNUAL ASSESSMENT [facility] Start: 2007 PEDS TO ADULT TRANSITION INITIAL DISCUSSION PEDS TO ADULT TRANSITION INITIAL DISCUSSION [facility] Start: 2006 HPV VACCINE (1 - Mal e 2-dose series) HPV VACCINE (1 - Male 2-dose series) [facility] Start: 02-03-2000 COVID-19 VACCINE (#1) COVID-19 VACCI NE (#1) [facility] Start: 1995 COVID-19 VACCINE (#1) COVID-19 VACCI NE (#1) [facility] Bacteria identified in Urine by Culture URINE CULTURE Microbiology Routine Flank pain 03/22/2022 2:36 PM EDT [facility] Work Phone: End: 04-21-2023 Ct abdomen & pelvis w/o contrast material CT ABD/PEL WO IVCON Radiology STAT Flank pain 1 Occurrences starting 03/22/2022 until 04/21/2023 [facility] Work Phone: Comment on above: 1 Occurrences starti ng 03/22/2022 until 04/21/2023 End: 04-20-2024 ECG COMPLETE ECG COMPLETE ECG Routine Atypical chest pain 1 Occurrences starting 04/20/2023 until 04/20/2024 [facility] Work Phone: Comment on above: 1 Occurrences starti ng 04/20/2023 until 04/20/2024 End: 04-20-2024 EXERCISE STRESS ECG (WITHOUT IMAGING) EXERCISE STRESS ECG (WITHOUT IMAGING) Cardiology Routine Atypical chest pain Family history of early CAD 1 Occurrences starting 04/20/2023 until 04/20/2024 [facility] Work Phone: Comment on above: 1 Occurrences starti ng 04/20/2023 until 04/20/2024 Hepatitis B virus surface IgG Ab [Presence] in Serum [facility] HIV 1+2 Ab+HIV1 p24 Ag [Presence] in Serum or Plasma by Immunoassay [facility] Patient Education [facility] Work Phone: Patient referral [facility] Work Phone: Urinalysis complete panel - Urine URINALYSIS, WITH MICROSCOPIC Lab Routine Flank pain 03/22/2022 2:36 PM EDT [facility] Work Phone: XR SHOULDER GENERAL 3V OR MORE AP/TRUE AP/OTHER LEFT XR SHOULDER GENERAL 3V OR MORE AP/TRUE AP/OTHER LEFT Radiology Routine Acute pain of left shoulder 04/28/2022 11:45 AM EDT [facility] Work Phone: [facility] Immunizations Immunization Date Immunization Notes Care Provider Fa [facility] 05-31-2023 influenza, injectabl e, quadrivalent, contains preservative Clarence Rodriguez MD Work Phone: [facility] 05-31-2023 influenza virus vaccine, unspecified formulation Xr [place] Work Phone: [facility] 02-13-2022 tetanus toxoid, redu yanira diphtheria toxoid, and acellular pertussis vaccine, adsorbed [facility] 01-04-2021 tetanus toxoid, redu yanira diphtheria toxoid, and acellular pertussis vaccine, adsorbed Clarence Rodriguez MD Work Phone: [facility] 06-14-2019 influenza virus vaccine, unspecified formulation Clarence Rodriguez MD Work Phone: [facility] 05-24-2019 Influenza virus vaccine [facility] 05-14-2016 tetanus toxoid, redu yanira diphtheria toxoid, and acellular pertussis vaccine, adsorbed Clarence Rodriguez MD Work Phone: [facility] 01-31-2011 hepatitis A vaccine, unspecified formulation Clarence Rodriguez MD Work Phone: [facility] Work Phone: 02-18-2009 hepatitis A vaccine, unspecified formulation Clarence Rodriguez MD Work Phone: [facility] Work Phone: 02-18-2009 Meningococcal, MCV4, unspecified conjugate formulation(groups A, C, Y and W-135) Clarence Rodriguez MD Work Phone: [facility] Work Phone: 02-21-2006 tetanus toxoid, redu yanira diphtheria toxoid, and acellular pertussis vaccine, adsorbed Clarence Rodriguez MD Work Phone: [facility] Work Phone: 07-04-2003 influenza virus vaccine, unspecified formulation Clarence Rodriguez MD Work Phone: [facility] Work Phone: 03-03-2000 diphtheria, tetanus toxoids and acellular pertussis vaccine Clarence Rodriguez MD Work Phone: [facility] Work Phone: 03-03-2000 measles, mumps and rubella virus vaccine Clarence Rodriguez MD Work Phone: [facility] Work Phone: 03-03-2000 poliovirus vaccine, inactivated Clarence Rodriguez MD Work Phone: [facility] Work Phone: 07-24-1997 Chicken Pox (disease) Alex Rodriguez MD Work Phone: [facility] Work Phone: 05-07-1996 diphtheria, tetanus toxoids and acellular pertussis vaccine Clarence Rodriguez MD Work Phone: [facility] Work Phone: 05-07-1996 haemophilus influenz ae type b vaccine, HbOC conjugate Clarence Rodriguez MD Work Phone: [facility] Work Phone: 02-28-1996 measles, mumps and rubella virus vaccine Clarence Rodriguez MD Work Phone: [facility] Work Phone: 1995 diphtheria, tetanus toxoids and acellular pertussis vaccine Clarence Rodriguez MD Work Phone: [facility] Work Phone: 1995 haemophilus influenz ae type b vaccine, HbOC conjugate Clarence Rodriguez MD Work Phone: [facility] Work Phone: 1995 hepatitis B vaccine, pediatric or pediatric/adolescent dosage Clarence Rodriguez MD Work Phone: [facility] Work Phone: 1995 trivalent poliovirus vaccine, live, oral Clarence Rodriguez MD Work Phone: [facility] Work Phone: 1995 diphtheria, tetanus toxoids and acellular pertussis vaccine Clarence Rodriguez MD Work Phone: [facility] Work Phone: 1995 haemophilus influenz ae type b vaccine, HbOC conjugate Clarence Rodriguez MD Work Phone: [facility] Work Phone: 1995 trivalent poliovirus vaccine, live, oral Clarence Rodriguez MD Work Phone: [facility] Work Phone: 1995 diphtheria, tetanus toxoids and acellular pertussis vaccine Clarence Rodriguez MD Work Phone: [facility] Work Phone: 1995 haemophilus influenz ae type b vaccine, HbOC conjugate Clarence Rodriguez MD Work Phone: [facility] Work Phone: 1995 hepatitis B vaccine, pediatric or pediatric/adolescent dosage Clarence Rodriguez MD Work Phone: [facility] Work Phone: 1995 trivalent poliovirus vaccine, live, oral Clarence Rodriguez MD Work Phone: [facility] Work Phone: 1995 hepatitis B vaccine, pediatric or pediatric/adolescent dosage Clarence Rodriguez MD Work Phone: [facility] Work Phone: Payers Date Payer Category Payer Self-pay [id number] 2022 Unknown [id number] 2021 Unknown [id number] 2021 Unknown [id number] 2016 Medicaid [id number] Private Health Insurance [id number] Unknown [id number] Unknown [id number] Social History Date Type Detail Facility Start: 02-24-2011 End: 03-01-2023 Tobacco smoking status NHIS Never smoked tobacco [facility] Start: 08-12-2021 End: 08-02-2024 Alcohol intake Current non-drinker of alcohol (finding) [facility] Start: 09-16-2019 End: 12-12-2022 History SDOH Alcohol Frequency 1 [facility] Start: 09-16-2019 End: 12-12-2022 History SDOH Alcohol Std Drinks 98 [facility] Start: 07-25-2019 End: 12-12-2022 History SDOH Social Connections Phone 5 [facility] Start: 07-25-2019 End: 12-12-2022 History SDOH Social Connections Membership 2 [facility] Start: 07-25-2019 End: 12-12-2022 History SDOH Social Connections Living 3 [facility] Start: 07-25-2019 End: 12-12-2022 History SDOH Physical Activity MPS 6 [facility] Start: 07-25-2019 Education 12 [facility] Start: 1995 Sex Assigned At Male [facility] Start: 12-05-2021 End: 05-26-2022 Exposure to SARS-CoV-2 (event) Not sure [facility] Start: 02-13-2022 End: 11-13-2023 Tobacco smoking status NHIS Unknown if ever smoked [facility] Start: 07-18-2019 None [facility] Start: 07-18-2019 Spouse/ Significant Other;With Family [facility] Start: 11-24-2020 Chew [facility] Start: 02-24-2011 End: 03-22-2022 Tobacco use and exposure Smokeless tobacco non-user [facility] Start: 04-28-2022 Tobacco use and exposure User of smokeless tobacco [facility] Start: 12-12-2022 History SDOH Alcohol Std Drinks 0 [facility] Start: 03-01-2023 Tobacco use and exposure Former smokeless tobacco user [facility] Work Phone: End: 02-20-2023 History of tobacco use Chews Tobacco [facility] Work Phone: Start: 12-11-2022 End: 08-02-2024 History of Social function [facility] Start: 12-11-2022 End: 08-02-2024 Social connection and isolation panel [facility] Do you belong to any clubs or organizations such as yazdanism groups, unions, fraternal or athletic groups, or school groups? No [facility] How often do you att end meetings of the clubs or organizations you belong to? Patient refused [facility] Are you now , , , , never or living with a partner? [facility] How often to you hav e a drink containing alcohol? Never [facility] Do you feel stress - tense, restless, nervous, or anxious, or unable to sleep at night because your mind is troubled all the time - these days [OSQ] Very much [facility] (I/We) worried wheth er (my/our) food would run out before (I/we) got money to buy more. Never true [facility] Start: 12-18-2020 Gender identity Identifies as male gender (finding) [facility] Start: 12-18-2020 Sexual orientation Heterosexual (finding) [facility] Clinical Notes 08-16-2019 to 08-02-2024 Clarence Rodriguez MD - 08/02/2024 10:23 AM Clarence Santillan APRN.STRATEGY ASSOCIATE - 07/08/2024 7:54 AM Case Jean Baptiste APRN.[facility] - 05/29/2024 2:57 PM Clarence Hernandez MD - 05/31/2023 5:56 PM EST Note Date & Type Note Facility 08-02-2024 Note HNO ID: [id number] Author: CLARENCE RODRIGUEZ MD Service: ? Author Type: Physician Type: Progress Notes Filed: 08/02/2024 10:47 Note Text: Chief Complaint Patient presents with: Sore Throat: Sore throat started a week ago. KINGSLEY Yepez is a 29 year old male who presents here today for swollen tonsils and side of neck/sore throat. Patient indicated that he had strep throat 1 month ago was treated and was better. 1 week ago started getting a sore throat/then some swelling in tonsils left side of neck. Patient indicated it has gotten worse today with difficulty getting fluids. Is able to breath with no issues. No fevers. Left ear has been slightly sore. No facial pain. Some dark yellow/green nasal discharge. Some post nasal drainage. No cough. Left side of neck is sore. No shortness of breath,, wheezing, nausea, vomiting or diarrhea. Past medical history, appointments, medications, allergies reviewed. Previous Medical History PAST MEDICAL HISTORY Diagnosis Date SANJAY (generalized anxiety disorder) 08/16/2019 GERD without esophagitis 03/01/2023 Globus sensation 08/16/2019 improved with treatment of anxiety LOCKHART (nonalcoholic steatohepatitis) 03/01/2023 Obesity, Class II, BMI 35-39.9 09/16/2019 Panic attack 08/30/2019 PMH - PAST MEDICAL HISTORY OF 2008 normal color vision Seasonal allergic rhinitis 12/24/2020 Well adult exam 09/16/2019 Last done: 03/01/2023 Previous Surgical History PAST SURGICAL HISTORY Procedure Laterality Date CIRCUMCISION COLONOSCOPY FLX DX W/COLLJ SPEC WHEN PFRMD 09/17/2019 Colonoscopy EGD 07/2019 FINGER AMPUTATION (SPECIFY DIGIT) HX Right distal thumb and index- accidental. MYRINGOTOMY ASPIRAND/EUSTACHIAN TUBE NFLTJ ANES Myringotomy/tubes MYRINGOTOMY ASPIRAND/EUSTACHIAN TUBE NFLTJ ANES Myringotomy/tubes Family History FAMILY HISTORY Problem Relation Age of Onset Heart Maternal Grandfather [place] Hypertension Mother None Father Heart Maternal Uncle MVP Patient Allergies ALLERGIES No Known Allergies Current Medications Current Outpatient Medications on File Prior to Visit Medication Sig fluvoxaMINE ER (LUVOX CR) 150 mg capsule Take 150 mg by mouth daily at bedtime. pantoprazole DR (PROTONIX) 40 mg tablet Take 1 tablet by mouth once daily. Take on empty stomach, 1/2 hr before meal. (Patient not taking: Reported on 05/29/2024) hydrOXYzine HCl (ATARAX) 10 mg tablet Take 10 mg by mouth three times daily as needed for anxiety. Take 1-2 tablets daily as needed propranolol (INDERAL) 40 mg tablet Take 1 tablet by mouth twice daily. (Patient taking differently: Take 40 mg by mouth two times a day. As needed) No current facility-administered medications on file prior to visit. Social History Social History Tobacco Use Smoking status: Never Smokeless tobacco: Former Types: Chew Quit date: 02/20/2023 Vaping Use Vaping status: Never Used Substance Use Topics Alcohol use: No Drug use: No Review of Symptoms REVIEW OF SYSTEMS See HPI EXAM: BP 118/90 Pulse 80 Resp 18 Wt 134.3 kg (296 lb) BMI 37.59 kg/m? General Appearance: Well appearing, alert, in no acute distress, well-hydrated, well nourished. and Obese. Eyes: Anicteric sclera. Pupils are equally round. Extraocular movements are intact. . Ears: External ears, TM's normal, canals clear. Nose/Sinuses: Negative findings: septum midline with no perforation or bleeding, no sinus tenderness, Positive findings: mucosa erythematous and swollen, purulent rhinorrhea. Oropharynx: Lips, mucosa, and tongue normal, teeth and gums normal, oropharynx normal. Tonsils at 2+ bilaterally without exudate. Neck: Supple, thyroid symmetric, normal size. Has enlarged lymph node on the left that is tender. Lungs: Lungs clear to auscultation. No wheezing, rhonchi, rales.. Heart: RRR without murmur, gallop, or rubs. No ectopy. Abdomen: Normal abdominal exam, Abdomen soft, non-tender. Bowel sounds normal. No masses, organomegaly. Health Maintenance List Depression Screening Never done Influenza Vaccine(1) due on 03/24/2024 Covid-19 Vaccine( season) Never done DTaP,Tdap,Td Vaccine(10 - Td or Tdap) due on 02/14/2032 Hepatitis B Vaccine Completed Hepatitis C Screening Completed HPV Vaccine Aged Out HIV Screening Discontinued Data reviewed A/P ASSESSMENT/PLAN: 1. Tonsillitis - ICD9: 463, ICD10: J03.90 (primary diagnosis) - will treat with Augmenting twice a day for 10 days. 2. Pharyngitis, unspecified etiology - ICD9: 462, ICD10: J02.9 - as above. Along with conservative measures for symptoms. Requested Prescriptions Signed Prescriptions Disp Refills amoxicillin-clavulanate potassium (AUGMENTIN) 875-125 mg per tablet 20 tablet 0 Sig: Take 1 tablet by mouth two times a day for 10 days. F/u if not resolving. If returns in the next month would consider referral to ENT for tonsillectomy. Clarence Rodriguez MD [facility] 08-02-2024 History of Presen t illness Narrative Chief Complaint Patient presents with: Sore Throat: Sore throat started a week ago. HPI Aldair Yepez is a 29 year old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 (nonalcoholic steatohepatitis) 03/01/2023 Obesity, Class II, BMI 35-39.9 09/16/2019 Panic attack 08/30/2019 PMH - PAST MEDICAL HISTORY OF 2008 normal color vision Seasonal allergic rhinitis 12/24/2020 Well adult exam 09/16/2019 Last done: 03/01/2023 PAST SURGICAL HISTORY Procedure Laterality Date CIRCUMCISION COLONOSCOPY FLX DX W/COLLJ SPEC WHEN PFRMD 09/17/2019 Colonoscopy EGD 07/2019 FINGER AMPUTATION (SPECIFY DIGIT) HX Right distal thumb and index- accidental. MYRINGOTOMY ASPIR&/EUSTACHIAN TUBE NFLTJ ANES Myringotomy/tubes MYRINGOTOMY ASPIR&/EUSTACHIAN TUBE NFLTJ ANES Myringotomy/tubes ALLERGIES Patient has no known allergies. MEDICATIONS fluvoxaMINE ER (LUVOX CR) 150 mg capsule Take 150 mg by mouth daily at bedtime. pantoprazole DR (PROTONIX) 40 mg tablet Take 1 tablet by mouth once daily. Take on empty stomach, 1/2 hr before meal. hydrOXYzine HCl (ATARAX) 10 mg tablet Take 10 mg by mouth three times daily as needed for anxiety. Take 1-2 tablets daily as needed mometasone (ELOCON) 0.1 % cream Apply to areas twice a day. On for 4 days and off for 3 days. Repeat as needed. (Patient not taking: Reported on 11/13/2023) propranolol (INDERAL) 40 mg tablet Take 1 tablet by mouth twice daily. (Patient taking differently: Take 40 mg by mouth two times a day. As needed) FAMILY HISTORY Problem Relation Age of Onset Heart Maternal Grandfather [place] Hypertension Mother None Father Heart Maternal Uncle MVP Social History Tobacco Use Smoking status: Never Smokeless tobacco: Former Types: Chew Quit date: 02/20/2023 Vaping Use Vaping Use: Never used Substance Use Topics Alcohol use: No Drug use: No Objective Physical Exam Vitals and nursing note reviewed. Constitutional: General: He is not in acute distress. Appearance: Normal appearance. He is not ill-appearing. Skin: General: Skin is warm and dry. Neurological: Mental Status: He is alert. ASSESSMENT/PLAN: 1. Exposure to blood - ICD9: V15.85, ICD10: Z77.21 - [facility] does not prescribed PrEP. Advised patient to go to ER as advised. Zuleyma Aldana APRN.[employer] documented in this encounter [facility] 08-09-2023 Note HNO ID: [id number] Author: CLARENCE RODRIGUEZ MD Service: ? Author Type: Physician Type: Progress Notes Filed: 08/10/2023 09:19 Note Text: Chief Complaint Patient presents with: Follow Up HPI Aldair Yepez is a 28 year old male who presents here today for 6 month. Patient does not have HTN, hyperlipidemia, Dm or of being a smoker. How is patient feeling today? Patient is here today for 6 month follow up. His GERD has been good no issues. Still taking the protonix twice a day. Has not had any GERD Office visit - 05/31/2023 - follow up on GERD How is patient feeling today? Patient indicated he is not having the pain as often as before. May only have the pain once a week and not as intense. Not needing to take anything in addition to the protonix. The pain he gets is mild and will resolve on it's own. Recent Stress test 04/2023 was normal Office visit 04/20/2023 for chest pain Aldair Yepez is a 28 year old male who presents here today for patient was seen in our office on 03/01/2023 for follow up on GERD. Patient was told to increase his GERD medication to 40 mg daily. Since the increase patient has been experiencing more pain. My chart message: It's a sharp pain from the top of my collarbone down to the bottom of my chest. It's on both sides. Takes medication about 1/2 hour before breakfast. Doesn't notice the pain after breakfast but has the pain after every meal after that. Patient was see in UC on 03/04/2023 was told to follow up with PCP or ER per patient. Says he notes after eating but can also develop after increased physical activity. Denies resolution with rest. No shortness of breath, nausea or diaphoresis with the chest pain. This is in the same area as he felt his GERD symptoms to be. He is no longer getting the bloating like he had been since the omeprazole was increased to 40 mg a day. Though the symptom is occurring less often it just seems more intense and lasts longer. With this pain he will start to get increased belching and bring up stomach acid into his throat. His only risk factor for heart disease is being male, obese, past Hx of chewing tobacco use and a maternal grandfather who of a UT in either his 40-50's. Past medical history, appointments, medications, allergies reviewed. Previous Medical History PAST MEDICAL HISTORY Diagnosis Date SANJAY (generalized anxiety disorder) 08/16/2019 GERD without esophagitis 03/01/2023 Globus sensation 08/16/2019 improved with treatment of anxiety LOCKHART (nonalcoholic steatohepatitis) 03/01/2023 Obesity, Class II, BMI 35-39.9 09/16/2019 Panic attack 08/30/2019 PMH - PAST MEDICAL HISTORY OF 2008 normal color vision Seasonal allergic rhinitis 12/24/2020 Well adult exam 09/16/2019 Last done: 03/01/2023 Previous Surgical History PAST SURGICAL HISTORY Procedure Laterality Date CIRCUMCISION COLONOSCOPY FLX DX W/COLLJ SPEC WHEN PFRMD 09/17/2019 Colonoscopy EGD 07/2019 FINGER AMPUTATION (SPECIFY DIGIT) HX Right distal thumb and index- accidental. MYRINGOTOMY ASPIRAND/EUSTACHIAN TUBE NFLTJ ANES Myringotomy/tubes MYRINGOTOMY ASPIRAND/EUSTACHIAN TUBE NFLTJ ANES Myringotomy/tubes Family History FAMILY HISTORY Problem Relation Age of Onset Heart Maternal Grandfather [place] Hypertension Mother None Father Heart Maternal Uncle MVP Patient Allergies ALLERGIES No Known Allergies Current Medications Current Outpatient Medications on File Prior to Visit Medication Sig mometasone (ELOCON) 0.1 % cream Apply to areas twice a day. On for 4 days and off for 3 days. Repeat as needed. pantoprazole DR (PROTONIX) 40 mg tablet Take 1 tablet by mouth twice daily. Take on empty stomach, 1/2 hr before meal. hydrOXYzine HCl (ATARAX) 10 mg tablet Take 10 mg by mouth three times daily as needed for anxiety. Take 1-2 tablets daily as needed propranolol (INDERAL) 40 mg tablet Take 1 tablet by mouth twice daily. (Patient taking differently: Take 40 mg by mouth two times a day. As needed) No current facility-administered medications on file prior to visit. Social History Social History Tobacco Use Smoking status: Never Smokeless tobacco: Former Types: Chew Quit date: 02/20/2023 Vaping Use Vaping Use: Never used Substance Use Topics Alcohol use: No Drug use: No Review of Symptoms REVIEW OF SYSTEMS GI: No nausea, vomiting, or diarrhea, No heartburn or reflux symptoms, and no blood EXAM: BP 114/70 (BP Site: Right Arm, BP Position: Sitting, BP Cuff Size: Large Adult) Pulse 68 Resp 16 Wt 123.8 kg (273 lb) BMI 34.67 kg/m? General Appearance: Well appearing, alert, in no acute distress, well-hydrated, well nourished.. Abdomen: Normal abdominal exam, Abdomen soft, non-tender. Bowel sounds normal. No masses, organomegaly. Health Maintenance List Depression Assessment Never done Covid-19 Vaccine(1) due on 12/13/2023 DTaP,Tdap,Td Vaccine(10 - Td or Tdap) due on (more content not included)... [facility] 05-31-2023 History of Presen t illness Narrative Chief Complaint Patient presents with: Follow Up HPI Aldair Yeepz is a 28 year old male who presents here today for 4 week follow up. How is patient feeling today? Patient indicated he is not having the pain as often as before. May only have the pain once a week and not as intense. Not needing to take anything in addition to the protonix. The pain he gets is mild and will resolve on it's own. Recent Stress test 04/2023 was normal Office visit 04/20/2023 for chest pain Aldair Yepez is a 28 year old male who presents here today for patient was seen in our office on 03/01/2023 for follow up on GERD. Patient was told to increase his GERD medication to 40 mg daily. Since the increase patient has been experiencing more pain. My chart message: It's a sharp pain from the top of my collarbone down to the bottom of my chest. It's on both sides. Takes medication about 1/2 hour before breakfast. Doesn't notice the pain after breakfast but has the pain after every meal after that. Patient was see in on 03/04/2023 was told to follow up with PCP or ER per patient. Says he notes after eating but can also develop after increased physical activity. Denies resolution with rest. No shortness of breath, nausea or diaphoresis with the chest pain. This is in the same area as he felt his GERD symptoms to be. He is no longer getting the bloating like he had been since the omeprazole was increased to 40 mg a day. Though the symptom is occurring less often it just seems more intense and lasts longer. With this pain he will start to get increased belching and bring up stomach acid into his throat. His only risk factor for heart disease is being male, obese, past Hx of chewing tobacco use and a maternal grandfather who of a UT in either his 40-50's. Patient does not have HTN, hyperlipidemia, Dm or of being a smoker. Past medical history, appointments, medications, allergies reviewed. Previous Medical History PAST MEDICAL HISTORY Diagnosis Date SANJAY (generalized anxiety disorder) 08/16/2019 GERD without esophagitis 03/01/2023 Globus sensation 08/16/2019 improved with treatment of anxiety LOCKHART (nonalcoholic steatohepatitis) 03/01/2023 Obesity, Class II, BMI 35-39.9 09/16/2019 Panic attack 08/30/2019 PMH - PAST MEDICAL HISTORY OF 2008 normal color vision Seasonal allergic rhinitis 12/24/2020 Well adult exam 09/16/2019 Last done: 03/01/2023 Previous Surgical History PAST SURGICAL HISTORY Procedure Laterality Date CIRCUMCISION COLONOSCOPY FLX DX W/COLLJ SPEC WHEN PFRMD 09/17/2019 Colonoscopy EGD 07/2019 FINGER AMPUTATION (SPECIFY DIGIT) HX Right distal thumb and index- accidental. MYRINGOTOMY ASPIR&/EUSTACHIAN TUBE NFLTJ ANES Myringotomy/tubes MYRINGOTOMY ASPIR&/EUSTACHIAN TUBE NFLTJ ANES Myringotomy/tubes Family History FAMILY HISTORY Problem Relation Age of Onset Heart Maternal Grandfather [place] Hypertension Mother None Father Heart Maternal Uncle MVP Patient Allergies ALLERGIES No Known Allergies Current Medications Current Outpatient Medications on File Prior to Visit Medication Sig pantoprazole DR (PROTONIX) 40 mg tablet Take 1 tablet by mouth twice daily. Take on empty stomach, 1/2 hr before meal. escitalopram oxalate (LEXAPRO) 10 mg tablet Take 10 mg by mouth once daily. Take one tablet daily (counseling center) hydrOXYzine HCl (ATARAX) 10 mg tablet Take 10 mg by mouth three times daily as needed for anxiety. Take 1-2 tablets daily as needed propranolol (INDERAL) 40 mg tablet Take 1 tablet by mouth twice daily. No current facility-administered medications on file prior to visit. Social History Social History Tobacco Use Smoking status: Never Smokeless tobacco: Former Types: Chew Quit date: 02/20/2023 Vaping Use Vaping Use: Never used Substance Use Topics Alcohol use: No Drug use: No Review of Symptoms REVIEW OF SYSTEMS See HPI EXAM: BP 114/74 (BP Site: Left Arm, BP Position: Sitting, BP Cuff Size: Large Adult) Pulse 62 Resp 16 Wt 125.6 kg (277 lb) BMI 35.17 kg/m General Appearance: Well appearing, alert, in no acute distress, well-hydrated, well nourished.. Lungs: Lungs clear to auscultation. No wheezing, rhonchi, rales.. Heart: RRR without murmur, gallop, or rubs. No ectopy. Abdomen: Normal abdominal exam, Abdomen soft, non-tender, non-distended. Bowel sounds normal. No masses, organomegaly. Health Maintenance List Influenza Vaccine(1) due on 03/24/2023 Depression Assessment due on 07/23/2023 Covid-19 Vaccine(1) due on 12/13/2023 DTaP,Tdap,Td Vaccine(10 - Td or Tdap) due on 02/14/2032 Hepatitis B Vaccine Completed Hepatitis C Screening Completed HPV Vaccine Aged Out HIV Screening Discontinued Data reviewed A/P ASSESSMENT/PLAN: 1. GERD without esophagitis - ICD9: 530.81, ICD10: K21.9 (primary diagnosis) - Continue treatment with protonix 40 mg twice a day. - will see patient back in July and if no symptoms will cut the protonix back to 40 mg once a day. 2. Encounter for immunization - ICD9: V03.89, ICD10: Z23 - INFLUENZA VACCINE, AGE 6 MO - 64 YR, QUADRIVALENT (AFLURIA, FLULAVAL, FLUZONE): given Requested Prescriptions Signed Prescriptions Disp Refills mometasone (ELOCON) 0.1 % cream 15 g 1 Sig: Apply to areas twice a day. On for 4 days and off for 3 days. Repeat as needed. F/u 2 months GERD recheck Clarence Rodriguez MD documented in this encounter [facility] 05-05-2023 Miscellaneous Notes Order was faxed by isma and put into filing cabinet Patient notified and given scheduling number for [facility] if not contacted Appointment was made for 4 weeks Karen Novak Ma Form ready to be faxed. Let patient know we are sending order for stress to [facility]. Patient needs a f/u visit for GERD in about 4 weeks Form completed and given to provider. And referral placed Patricia Carpenter MA Isma can we fax an order over to [facility] to do a treadmill stress test. Dx: R07.89 and Z82.49 Patient needs a f/u visit for GERD in about 4 weeks ALEC Rodriguez: No future stress test or 3-4 week f/u for GERD/chest pain scheduled in at this time. Wilda Burgess MA documented in this encounter [facility] 04-20-2023 History of Presen t illness Narrative Chief Complaint Patient presents with: Pain HPI Aldair Yepez is a 28 year old male who presents here today for patient was seen in our office on 03/01/2023 for follow up on GERD. Patient was told to increase his GERD medication to 40 mg daily. Since the increase patient has been experiencing more pain. My chart message: It's a sharp pain from the top of my collarbone down to the bottom of my chest. It's on both sides. Takes medication about 1/2 hour before breakfast. Doesn't notice the pain after breakfast but has the pain after every meal after that. Patient was see in on 03/04/2023 was told to follow up with PCP or ER per patient. Says he notes after eating but can also develop after increased physical activity. Denies resolution with rest. No shortness of breath, nausea or diaphoresis with the chest pain. This is in the same area as he felt his GERD symptoms to be. He is no longer getting the bloating like he had been since the omeprazole was increased to 40 mg a day. Though the symptom is occurring less often it just seems more intense and lasts longer. With this pain he will start to get increased belching and bring up stomach acid into his throat. His only risk factor for heart disease is being male, obese, past Hx of chewing tobacco use and a maternal grandfather who of a UT in either his 40-50's. Patient does not have HTN, hyperlipidemia, Dm or of being a smoker. Past medical history, appointments, medications, allergies reviewed. Previous Medical History PAST MEDICAL HISTORY Diagnosis Date SANJAY (generalized anxiety disorder) 08/16/2019 GERD without esophagitis 03/01/2023 Globus sensation 08/16/2019 improved with treatment of anxiety LOCKHART (nonalcoholic steatohepatitis) 03/01/2023 Obesity, Class II, BMI 35-39.9 09/16/2019 Panic attack 08/30/2019 PMH - PAST MEDICAL HISTORY OF 2008 normal color vision Seasonal allergic rhinitis 12/24/2020 Well adult exam 09/16/2019 Last done: 03/01/2023 Previous Surgical History PAST SURGICAL HISTORY Procedure Laterality Date CIRCUMCISION COLONOSCOPY FLX DX W/COLLJ SPEC WHEN PFRMD 09/17/2019 Colonoscopy EGD 07/2019 FINGER AMPUTATION (SPECIFY DIGIT) HX Right distal thumb and index- accidental. MYRINGOTOMY ASPIR&/EUSTACHIAN TUBE NFLTJ ANES Myringotomy/tubes MYRINGOTOMY ASPIR&/EUSTACHIAN TUBE NFLTJ ANES Myringotomy/tubes Family History FAMILY HISTORY Problem Relation Age of Onset Heart Maternal Grandfather [place] Hypertension Mother None Father Heart Maternal Uncle MVP Patient Allergies ALLERGIES No Known Allergies Current Medications Current Outpatient Medications on File Prior to Visit Medication Sig escitalopram oxalate (LEXAPRO) 10 mg tablet Take 10 mg by mouth once daily. Take one tablet daily (counseling center) hydrOXYzine HCl (ATARAX) 10 mg tablet Take 10 mg by mouth three times daily as needed for anxiety. Take 1-2 tablets daily as needed omeprazole (PRILOSEC) 40 mg capsule Take 1 capsule by mouth daily before breakfast. 1/2 hr before meal. propranolol (INDERAL) 40 mg tablet Take 1 tablet by mouth twice daily. No current facility-administered medications on file prior to visit. Social History Social History Tobacco Use Smoking status: Never Smokeless tobacco: Former Types: Chew Quit date: 02/20/2023 Vaping Use Vaping Use: Never used Substance Use Topics Alcohol use: No Drug use: No Review of Symptoms REVIEW OF SYSTEMS See HPI EXAM: BP 110/64 (BP Site: Left Arm, BP Position: Sitting, BP Cuff Size: Large Adult) Pulse (!) 58 Temp 36.1 C (97 F) (Left Tympanic) Resp 16 Wt 125.2 kg (276 lb) BMI 35.05 kg/m Last 6 Encounter Wt Readings: Date: Wt: 04/20/2023 125.2 kg (276 lb) 03/04/2023 132.5 kg (292 lb) 03/01/2023 132.9 kg (293 lb) 12/12/2022 149.7 kg (330 lb) 10/19/2022 156.7 kg (345 lb 6.4 oz) 05/26/2022 156 kg (344 lb) General Appearance: Well appearing, alert, in no acute distress, well-hydrated, well nourished. and Obese. Lungs: Lungs clear to auscultation. No wheezing, rhonchi, rales.. Heart: RRR without murmur, gallop, or rubs. No ectopy. Abdomen: Normal abdominal exam, Abdomen soft, non-tender. Bowel sounds normal. No masses, organomegaly. Extremities: No deformities, edema, skin discoloration, Good capillary refill. . Health Maintenance List Influenza Vaccine(1) due on 03/24/2023 Depression Assessment due on 07/23/2023 Covid-19 Vaccine(1) due on 12/13/2023 DTaP,Tdap,Td Vaccine(9 - Td or Tdap) due on 01/04/2031 Hepatitis B Vaccine Completed Hepatitis C Screening Completed HPV Vaccine Aged Out HIV Screening Discontinued Data reviewed In Office EKG: Sinus keila with non-specific flattened T wave in lead III. No other acute ST or T wave changes. No old EKG to compare with. A/P ASSESSMENT/PLAN: 1. Atypical chest pain - ICD9: 786.59, ICD10: R07.89 (primary diagnosis) Check - ECG COMPLETE - EXERCISE STRESS ECG (WITHOUT IMAGING) 2. GERD without esophagitis - ICD9: 530.81, ICD10: K21.9 - Begin treatment with protonix 40 mg BID, and stop the omeprazole 40 mg a day. 3. Family history of early CAD - ICD9: V17.3, ICD10: Z82.49 Check - EXERCISE STRESS ECG (WITHOUT IMAGING) The following approved medication requests have been transmitted electronically. Requested Prescriptions Signed Prescriptions Disp Refills pantoprazole DR (PROTONIX) 40 mg tablet 60 tablet 5 Sig: Take 1 tablet by mouth twice daily. Take on empty stomach, 1/2 hr before meal. F/u in 3-4 weeks atypical chest pain/GERD Clarence Rodriguez MD documented in this encounter [facility] 04-12-2023 Miscellaneous Notes Pt has appointment scheduled with Caryl 04/20/23. Vika Hernandez LPN Attempted to schedule pt for office visit but was unable to do so d/t insurance (reached denial tree). Pt advised to contact office to speak with scheduling for appt. Michael Hernandez LPN Patient will need seen in office. documented in this encounter [facility] 03-04-2023 History of Presen t illness Narrative Radiology Service Progress Note PATIENT NAME: Aldair Yepez DATE OF SERVICE: March 04, 2023 TIME: 10:02 AM PATIENT IDENTITY VERIFICATION COMPLETED USING TWO (2) IDENTIFIERS: Name and Date of confirmed by patient verbally. FALL SCREENING: Has the patient had 2 falls in the last year or 1 fall with injury or currently using an Ambulatory Assistive Device (Walker, Cane, Wheelchair, Crutches, etc.)? No PATIENT GENDER DATA: Male PATIENT RELEVANT IMPLANT DATA REVIEWED: Not Applicable RADIOLOGY DEPARTMENT: General X-ray: Exam(s) Completed: Rib X-Ray: Left PERIPHERAL IV DATA: Not applicable SIGNED BY: RT Dominique(R) March 04, 2023 10:02 AM documented in this encounter [facility] 03-04-2023 History of Presen t illness Narrative Images from the original note were not included. Subjective The history is provided by the patient. No language translator was used. HPI Aldair Yepez is a 28 year old male who presents today for CC of left sided upper rib pain. This comes and goes. He denies any known injury or trauma, no shortness of breath, no pain with deep breath. No recent travel. Pain does not wake him in his sleep, starts in the morning when he gets up. He has not used any medications or treatment. He has a h/oi GERD, and previous shoulder injury. BP 112/62 Pulse 74 Temp 36.3 C (97.4 F) Resp 16 Wt 132.5 kg (292 lb) SpO2 97% BMI 37.08 kg/m Social History Tobacco Use Smoking status: Never Smokeless tobacco: Former Types: Chew Quit date: 02/20/2023 Vaping Use Vaping Use: Never used Substance Use Topics Alcohol use: No Drug use: No PAST MEDICAL HISTORY Diagnosis Date SANJAY (generalized anxiety disorder) 08/16/2019 GERD without esophagitis 03/01/2023 Globus sensation 08/16/2019 improved with treatment of anxiety LOCKHART (nonalcoholic steatohepatitis) 03/01/2023 Obesity, Class II, BMI 35-39.9 09/16/2019 Panic attack 08/30/2019 PMH - PAST MEDICAL HISTORY OF 2008 normal color vision Seasonal allergic rhinitis 12/24/2020 Well adult exam 09/16/2019 Last done: 03/01/2023 I have confirmed and edited as necessary, the [facility] Review of Systems Constitutional: Negative for chills and fever. Musculoskeletal: Negative for joint pain and myalgias. Skin: Negative for itching and rash. All other systems reviewed and are negative. Objective Physical Exam Vitals and nursing note reviewed. Cardiovascular: Rate and Rhythm: Normal rate and regular rhythm. Pulmonary: Effort: Pulmonary effort is normal. Breath sounds: Normal breath sounds. Chest: Chest wall: Tenderness present. Comments: Area of pain marked, not reproducible at visit, not having pain at visit. Skin: General: Skin is warm and dry. Neurological: Mental Status: He is alert and oriented to person, place, and time. Psychiatric: Mood and Affect: Affect normal. ASSESSMENT/PLAN: 1. Rib pain on left side - ICD9: 786.50, ICD10: R07.81 Possible costocondritis, gerd Xr negative Tylenol/ibuprofen Follow up next week for further evaluation and work up When to go to ED discussed Advised unable to do heart work up here, declined ER today - XR RIBS/CHEST 3V AP RIB/OBLS/CXR LEFT - interpreted by : ELINA TORRES MD FINDINGS: There is no evidence of acute left rib fracture. There is no pneumothorax or pleural effusion. The underlying visualized lungs appear normal.IMPRESSION: No evidence of acute left rib fracture. Diagnosis and treatment plan were discussed and questions were answered to the patient's satisfaction. Pt acknowledged understanding of concepts and follow up plan. Specific signs and symptoms that would indicate the need for higher level of care were discussed in detail warranting prompt ER evaluation. Uma Jimenez APRN.STRATEGY ASSOCIATE documented in this encounter [facility] 03-03-2023 Miscellaneous Notes Patient notified of results and provider's instructions. Patient verbalizes understanding. Vika Hernandez LPN Let patient know that overall labs look okay/stable. Keep working on diet and weight loss to help with cholesterol and fatty liver. Caryl Green PA-C documented in this encounter [facility] 03-01-2023 Instructions Clarence Rodriguez MD - 03/01/2023 4:45 PM EDT Please get labs done on or after 08/18/2023 prior to your next visit. documented in this encounter [facility] 03-01-2023 History of Presen t illness Narrative Chief Complaint Patient presents with: Physical HPI Aldair Yepez is a 28 year old male who presents here today for Physical. Office visit - Physical - 03/01/2023 Patient with Hx of SANJAY, panic attacks, Obesity, seasonal allergies as well as those below. Patient is working with the [facility] and recently was switched form Effexor to Lexapro. The Omeprazole has helped alleviate his GERD symptoms in the AM but notes recurrence of his GERD in the afternoon. Quit chewing tobacco about two weeks ago and no longer eating red meat. Past medical history, appointments, medications, allergies reviewed. Previous Medical History PAST MEDICAL HISTORY Diagnosis Date ASNJAY (generalized anxiety disorder) 08/16/2019 Globus sensation 08/16/2019 improved with treatment of anxiety Obesity, Class II, BMI 35-39.9 09/16/2019 Panic attack 08/30/2019 PMH - PAST MEDICAL HISTORY OF 2009 normal color vision Seasonal allergic rhinitis 12/24/2020 Previous Surgical History PAST SURGICAL HISTORY Procedure Laterality Date CIRCUMCISION COLONOSCOPY FLX DX W/COLLJ SPEC WHEN PFRMD 09/17/2019 Colonoscopy EGD 07/2019 FINGER AMPUTATION (SPECIFY DIGIT) HX Right distal thumb and index- accidental. MYRINGOTOMY ASPIR&/EUSTACHIAN TUBE NFLTJ ANES Myringotomy/tubes MYRINGOTOMY ASPIR&/EUSTACHIAN TUBE NFLTJ ANES Myringotomy/tubes Family History FAMILY HISTORY Problem Relation Age of Onset Heart Maternal Grandfather UT Hypertension Mother None Father Heart Maternal Uncle MVP Patient Allergies ALLERGIES No Known Allergies Current Medications Current Outpatient Medications on File Prior to Visit Medication Sig venlafaxine ER (EFFEXOR XR) 150 mg 24 hr capsule Take 1 capsule by mouth once daily. omeprazole (PRILOSEC) 20 mg capsule Take 1 capsule by mouth daily before breakfast. 1/2 hr before meal. propranolol (INDERAL) 40 mg tablet Take 1 tablet by mouth twice daily. No current facility-administered medications on file prior to visit. Social History Social History Tobacco Use Smoking status: Never Smokeless tobacco: Current Vaping Use Vaping Use: Never used Substance Use Topics Alcohol use: No Drug use: No Review of Symptoms REVIEW OF SYSTEMS GENERAL: No unintentional weight loss, malaise or fevers HEENT: Negative for frequent or significant headaches, No changes in hearing or vision, no nose bleeds or other nasal problems NECK: Negative for lumps, goiter, pain and significant neck swelling RESPIRATORY: Negative for cough, hemoptysis, wheezing, COPD, dyspnea or shortness of breath CARDIOVASCULAR: Negative for chest pain, leg swelling, hypertension, CHF or palpitations GI: No nausea, vomiting, or diarrhea and See HPI : No history of dysuria, frequency or incontinence MUSCULOSKELETAL: Negative for joint pain or swelling, back pain or muscle pain SKIN: Negative for lesions, rash, and itching PSYCH: See HPI HEMATOLOGY/LYMPHOLOGY: Negative for prolonged bleeding, bruising easily or swollen nodes ENDOCRINE: Negative for cold or heat intolerance, polyuria, polydipsia and goiter NEURO: No history of headaches, syncope, paralysis, seizures or tremors EXAM: BP 122/84 (BP Site: Right Arm, BP Position: Sitting, BP Cuff Size: Large Adult) Pulse 70 Resp 16 Wt 132.9 kg (293 lb) BMI 37.21 kg/m Last 6 Encounter Wt Readings: Date: Wt: 03/01/2023 132.9 kg (293 lb) 12/12/2022 149.7 kg (330 lb) 10/19/2022 156.7 kg (345 lb 6.4 oz) 05/26/2022 156 kg (344 lb) 03/22/2022 151 kg (333 lb) 03/15/2022 153.8 kg (339 lb) General Appearance: Well appearing, alert, in no acute distress, well-hydrated, well nourished. and Obese. Skin: Skin color, texture, turgor normal, no suspicious rashes or lesions. Has a yeast infection at his belt line Head: Normocephalic, no masses, lesions, tenderness or abnormalities. Eyes: Anicteric sclera. Pupils are equally round and reactive to light. Extraocular movements are intact. . Ears: External ears, TM's normal, canals clear. Nose/Sinuses: Nares normal, septum midline, mucosa normal, no drainage or sinus tenderness. Oropharynx: Lips, mucosa, and tongue normal, teeth and gums normal, oropharynx normal. Neck: Supple, no adenopathy; thyroid symmetric, normal size, no bruits. Lungs: Lungs clear to auscultation. No wheezing, rhonchi, rales.. Heart: RRR without murmur, gallop, or rubs. No ectopy. Abdomen: Normal abdominal exam, Abdomen soft, non-tender. Bowel sounds normal. No masses, organomegaly. Extremities: No deformities, edema, skin discoloration, Good capillary refill. . Musculoskeletal: Spine range of motion normal. Muscular strength intact, No joint swelling, deformity, or tenderness. Peripheral Pulses: Normal. Neurologic: Gait normal. Reflexes normal and symmetric. Sensation to light touch and crainal nerves 2-12 intact.. Genitalia: Normal, Penis normal. No urethral discharge. Scrotum normal to palpation. No hernia.. Health Maintenance List HEPATITIS C SCREENING Never done DEPRESSION ASSESSMENT Never done COVID-19 VACCINE(1) due on 12/13/2023 INFLUENZA(1) due on 03/24/2023 DTAP,TDAP,TD(9 - Td or Tdap) due on 01/04/2031 HEPATITIS B Completed HPV VACCINE Aged Out HIV SCREENING Discontinued Data reviewed Component Latest Ref Rng & Units 12/12/2022 02/11/2023 WBC 3.70 - 11.00 k/uL 6.99 RBC 4.20 - 6.00 m/uL 5.28 Hemoglobin 13.0 - 17.0 g/dL 15.2 Hematocrit 39.0 - 51.0 % 47.8 MCV 80.0 - 100.0 fL 90.5 MCH 26.0 - 34.0 pg 28.8 MCHC 30.5 - 36.0 g/dL 31.8 RDW-CV 11.5 - 15.0 % 13.3 Platelet Count 150 - 400 k/uL 259 MPV 9.0 - 12.7 fL 10.7 Neut% % 63.0 Abs Neut (ANC) 1.45 - 7.50 k/uL 4.40 Lymph% % 22.7 Abs Lymph 1.00 - 4.00 k/uL 1.59 Toole% % 8.9 Abs Toole <0.87 k/uL 0.62 Eosin% % 4.4 Abs Eosin <0.46 k/uL 0.31 Baso% % 0.9 Abs Baso <0.11 k/uL 0.06 Immature Gran % % 0.1 IMMATURE GRANS (ABS) <0.10 k/uL <0.03 NRBC /100 WBC 0.0 Absolute nRBC <0.01 k/uL <0.01 DTYPE Auto Protein, Total 6.3 - 8.0 g/dL 7.3 7.4 Albumin 3.9 - 4.9 g/dL 4.3 4.4 Calcium 8.5 - 10.2 mg/dL 8.9 Bilirubin, Total 0.2 - 1.3 mg/dL 0.4 0.6 Alkaline Phosphatase 38 - 113 U/L 76 69 AST 14 - 40 U/L 53 (H) 73 (H) ALT 10 - 54 U/L 79 (H) 84 (H) Glucose 74 - 99 mg/dL 101 (H) BUN 9 - 24 mg/dL 9 Creatinine 0.73 - 1.22 mg/dL 0.93 Sodium 136 - 144 mmol/L 139 Potassium 3.7 - 5.1 mmol/L 4.0 Chloride 97 - 105 mmol/L 106 (H) CO2 22 - 30 mmol/L 20 (L) Anion Gap 9 - 18 mmol/L 13 eGFR >=60 mL/min/1.73m 115 Total Cholesterol, Nonfasting <200 mg/dL 180 Triglycerides, Nonfasting <150 mg/dL 144 HDL Cholesterol, Nonfasting >39 mg/dL 42 LDL Cholesterol, Nonfasting <100 mg/dL 109 (H) Non HDL Cholesterol, Nonfasting <130 mg/dL 138 (H) VLDL Cholesterol, Nonfasting <30 mg/dL 29 Total Chol/HDL Ratio, Nonfasting <5.10 mg/dL 4.29 LDL/HDL Ratio, Nonfasting <2.54 mg/dL 2.60 (H) Bilirubin, Conjug <0.2 mg/dL <0.2 A/P ASSESSMENT/PLAN: 1. Well adult exam - ICD9: V70.0, ICD10: Z00.00 (primary diagnosis) - Counseled on healthy diet and regular exercise - Discussed need for and benefit of weight loss. BMI 37.21 kg/(m^2) - Follow up for annual exam in one year 2. LOCKHART (nonalcoholic steatohepatitis) - ICD9: 571.8, ICD10: K75.81 - patient to continue working on diet for weight loss. - HEPATIC FUNCTION PNL - CBC 3. SANJAY (generalized anxiety disorder) - ICD9: 300.02, ICD10: F41.1 - management per psych 4. Panic attack - ICD9: 300.01, ICD10: F41.0 - as per #3 5. Screening for diabetes mellitus - ICD9: V77.1, ICD10: Z13.1 Check - HGB A1C 6. Elevated LFTs - ICD9: 790.6, ICD10: R79.89 check - HEP ACUTE PANEL/RNA 7. GERD without esophagitis - ICD9: 530.81, ICD10: K21.9 - increase treatment with Prilosec 40 mg QD 8. Heat intolerance - ICD9: 780.99, ICD10: R68.89 - check TSH 9. Candidiasis - ICD9: 112.9, ICD10: B37.9 - discussed some OTC Tx's. Requested Prescriptions Signed Prescriptions Disp Refills omeprazole (PRILOSEC) 40 mg capsule 30 capsule 5 Sig: Take 1 capsule by mouth daily before breakfast. 1/2 hr before meal. F/u 6 months routine check Lipids and LFT's Clarence Rodriguez MD documented in this encounter [facility] 01-06-2023 Miscellaneous Notes Patient has been identified by name and date of : Yes Requested Prescriptions Pending Prescriptions Disp Refills venlafaxine ER (EFFEXOR XR) 150 mg 24 hr capsule 30 capsule 1 Sig: Take 1 capsule by mouth once daily. RX INSTRUCTIONS: Patient aware RX will be sent to pharmacy. No need to notify patient. LM to call to schedule FU when Tayler returns. Mary Beth Murphy LPN documented in this encounter [facility] 12-21-2022 Miscellaneous Notes Spoke with patient. Given message from provider's office. Patient verbalizes understanding. Alia Nuñez RN Called and left a voicemail for the Patient to call back and ask for a nurse to receive the providers message. Kylah Fay RN US shows fatty liver which can lead to cirrhosis. Need to work on diet and weight loss to help this. Continue with repeat labs in a couple weeks. I'm adding a cholesterol panel since it's been a couple years since last checked. Caryl Green PA-C documented in this encounter [facility] 12-20-2022 History of Presen t illness Narrative Radiology Service Progress Note PATIENT NAME: Aldair Yepez DATE OF SERVICE: December 20, 2022 TIME: 11:04 AM PATIENT IDENTITY VERIFICATION COMPLETED USING TWO (2) IDENTIFIERS: Name and Date of confirmed by patient verbally. FALL SCREENING: Has the patient had 2 falls in the last year or 1 fall with injury or currently using an Ambulatory Assistive Device (Walker, Cane, Wheelchair, Crutches, etc.)? No PATIENT GENDER DATA: Male PATIENT RELEVANT IMPLANT DATA REVIEWED: Not Applicable RADIOLOGY DEPARTMENT: Ultrasound PERIPHERAL IV DATA: Not applicable SIGNED BY: Yulia Golden RDMS December 20, 2022 11:04 AM documented in this encounter [facility] 11-03-2022 Miscellaneous Notes Patient has been identified by name and date of : Yes Requested Prescriptions Pending Prescriptions Disp Refills venlafaxine ER (EFFEXOR XR) 150 mg 24 hr capsule 30 capsule 1 Sig: Take 1 capsule by mouth once daily. RX INSTRUCTIONS: Patient aware RX will be sent to pharmacy. No need to notify patient. Awaiting financial clearance/OOP payment for follow up scheduling. Mary Beth Murphy LPN documented in this encounter [facility] 10-19-2022 History of Presen t illness Narrative Subjective HPI Baltazar presents today with sore throat and fever, he has had an exposure to strep. He woke up feeling terrible, is eating and drinking, no other symptoms. PAST MEDICAL HISTORY Diagnosis Date SANJAY (generalized anxiety disorder) 08/16/2019 Globus sensation 08/16/2019 improved with treatment of anxiety Obesity, Class II, BMI 35-39.9 09/16/2019 Panic attack 08/30/2019 PMH - PAST MEDICAL HISTORY OF 2008 normal color vision Seasonal allergic rhinitis 12/24/2020 PAST SURGICAL HISTORY Procedure Laterality Date CIRCUMCISION COLONOSCOPY FLX DX W/COLLJ SPEC WHEN PFRMD 09/17/2019 Colonoscopy EGD 07/2019 FINGER AMPUTATION (SPECIFY DIGIT) HX Right distal thumb and index- accidental. MYRINGOTOMY ASPIR&/EUSTACHIAN TUBE NFLTJ ANES Myringotomy/tubes MYRINGOTOMY ASPIR&/EUSTACHIAN TUBE NFLTJ ANES Myringotomy/tubes ALLERGIES Patient has no known allergies. MEDICATIONS venlafaxine ER (EFFEXOR XR) 150 mg 24 hr capsule Take 1 capsule by mouth once daily. propranolol (INDERAL) 40 mg tablet Take 1 tablet by mouth twice daily. FAMILY HISTORY Problem Relation Age of Onset Heart Maternal Grandfather [place] Hypertension Mother None Father Heart Maternal Uncle MVP Social History Tobacco Use Smoking status: Never Smokeless tobacco: Current Vaping Use Vaping Use: Never used Substance Use Topics Alcohol use: No Drug use: No Review of Systems Constitutional: Positive for fever. HENT: Positive for sore throat. All other systems reviewed and are negative. Objective Physical Exam Constitutional: Appearance: Normal appearance. HENT: Head: Normocephalic and atraumatic. Right Ear: Tympanic membrane and ear canal normal. Left Ear: Tympanic membrane normal. Nose: Nose normal. Mouth/Throat: Mouth: Mucous membranes are dry. Pharynx: Posterior oropharyngeal erythema present. Eyes: Extraocular Movements: Extraocular movements intact. Pupils: Pupils are equal, round, and reactive to light. Cardiovascular: Rate and Rhythm: Normal rate and regular rhythm. Pulses: Normal pulses. Heart sounds: Normal heart sounds. Pulmonary: Effort: Pulmonary effort is normal. Breath sounds: Normal breath sounds. Abdominal: General: Abdomen is flat. Palpations: Abdomen is soft. Musculoskeletal: General: Normal range of motion. Skin: General: Skin is warm. Neurological: Mental Status: He is alert. Psychiatric: Mood and Affect: Mood normal. ASSESSMENT/PLAN: 1. Sorethroat - ICD9: 462, ICD10: J02.9 - suspect strep Amox Increase fluids Call if things worsen Josselyn Hay APRN.VINITA documented in this encounter [facility] 09-09-2022 Instructions Tayler Gonsalez APRN.VINITA - 09/09/2022 3:59 PM EST Gita Carpenter, It was good to talk with you today. Below is a summary of the plan that we discussed during your appointment for reference. Of course, if you have any questions or concerns do not hesitate to reach out to me via a message or call. Jose M, Tayler Gonsalez APRN.VINITA PLAN AND FOLLOW UP: YOU SHOULD SEEK IMMEDIATE MEDICAL ATTENTION AT THE NEAREST EMERGENCY DEPARTMENT OR BY CALLING 911, IF ANY OF THE FOLLOWING OCCURS: - New or worsening thoughts of harming yourself (suicidal thoughts) or others (homicidal thoughts) - Not feeling safe at home or worrying about your ability to remain safe at home If you are having thoughts of harming yourself or others, then you can: - Call the National Suicide Hotline at 8-709-AFSABON ( ) or 7-105-471-TALK (0301) - Text 8YIDV to 326110 Medication Update: Stop Paxil. Venlafaxine 150 mg XR - take 1 capsule once daily. Propranolol 40 mg - take 1 tablet up to twice daily as needed. Next appointment: --Schedule in 4 to 6 weeks or sooner if needed -- You may call the department appointment line at [phone] to schedule your appointment. -- Please call my nurse Mary Beth at [phone] or send me a message in [employer] with any questions or concerns between appointments. documented in this encounter [facility] 09-09-2022 History of Presen t illness Narrative Images from the original note were not included. PSYC FOLLOW UP - PSYCHIATRIC PROGRESS NOTE DIAGNOSIS: Panic disorder without agoraphobia None GAF: -70-61 Some mild symptoms or some difficulty in social, occupational, or school functioning, but generally functioning pretty well. TREATMENT PLAN: Discontinue Paxil due to lack of efficacy. Increase Effexor to help with anxiety and panic symptoms. Discontinue Hydroxyzine due to lack of efficacy. Continue Inderal at the same dose. Follow up in 4 to 6 weeks. Medication Update: Effexor 150 mg - take 1 capsule once daily. Stop Paxil. Stop Hydroxyzine. Continue Propranolol at the same dose as needed to manage physical symptoms of anxiety. The effects and side effects of all the medications were reviewed in detail with the patient. He is in agreement with the treatment plan and aware to reach out with any questions, concerns, or worsening of symptoms prior to the next appointment. CC: Follow up regarding anxiety symptoms With the patient consent, visit was performed virtually. HPI: Aldair Yepez is a 27 year old Male with a history of panic diosorder presenting today for follow-up. Date of last visit: 07/15/2022 Plan from last visit: Cross taper from Paxil to Effexor to help with anxiety and panic symptoms. Increase Propranolol dose to help him manage the physical symptoms of anxiety during the panic attack. Utilize hydroxyzine as needed to help with anxiety. Follow up in 4 weeks. Today Baltazar shares that today has been going well. He feels that his mood is better with the Effexor than it was with the Paxil. He is still feeling anxious. Notices that it is more prominent in the afternoon. Feels more anxious as it gets darker. He was able to go out of town three times and did not experience the choking sensation. Denies any side effects besides dry mouth. Biotene mouth wash helps. The increase in Propranolol dose has helped more with the physical symptoms of anxiety. He denies any concerns with dizziness or falls. He denies concerns with his physical health. No change in sleep and anxiety. He has been able to go to work daily. Denies any major stress at home. Unsure why he feels more anxious after work. We discussed how it could be related to interdose withdrawal symptoms. He is in agreement to try a higher dose of Effexor. Interval Progress: Slightly improved Risks and benefits of the medication, including any black box warnings, were discussed with the patient. Social History: See HPI. No change PATIENT DATA: Generalized Anxiety Disorder Scale (SANJAY-7) SANJAY - 7 SCORES 02/21/2022 07/13/2022 09/08/2022 SANJAY-7 Score 9 8 14 (0-4) minimal anxiety, (5-9) mild anxiety, (10-14) moderate anxiety, (15-21) severe anxiety Patient Health Questionnaire (PHQ-9) PHQ-9 02/21/2022 07/13/2022 09/08/2022 Score 0 11 8 (0-4) minimal depression, (5-9) mild depression, (10-14) moderate depression, (15-19) moderately severe depression, (20-27) severe depression ROS: General: Negative for fever, malaise, unintentional weight loss HEENT: Negative for recent changes in vision or hearing, no nasal drainage Respiratory: Negative for cough, wheezing or SOB Cardiovascular: Negative for chest pain GI: Negative for nausea, vomiting, change in bowel habits MUSCULOSKELETAL: Negative for acute back or joint pain SKIN: Negative for rash NEURO: Negative for headaches, seizures, focal neurological deficits All other systems negative. VITAL SIGNS: BP Temp Pulse Resp SpO2 MENTAL STATUS EXAMINATION: Appearance: Appropriately groomed, appears stated age Behavior: Appropriately engaged Psychomotor: No psychomotor agitation Cognition Level of Consciousness: Awake and alert. No fluctuation in wakefulness. Orientation: Grossly oriented Memory: Intact Attention/Concentration: Good Fund of Knowledge: Able to demonstrate an awareness of current events. Mood: Anxious Affect: Congruent to mood Speech/Language: Appropriate tone, prosody, kristin, phonetics, and syntax Thought Form: Goal-directed. No loosening of associations. Thought Content: No delusions noted or endorsed. Perceptual Disturbances: Did not appear to respond to auditory stimuli. Safety: Suicidal Ideations: No suicidal ideation, intent or plan. Homicidal Ideations: No homicidal ideation, intent or plan. Insight: Appropriate Judgment: Appropriate I spent a total of 28 minutes on the date of the service which included preparing to see the patient, [id number] patient care, completing clinical documentation, and counseling and educating the patient/family/caregiver, ordering medications/labs. Tayler Gonsalez APRN.VINITA September 09, 2022 3:29 PM This note was partially generated using uConnect voice recognition system. Note was reviewed for accuracy. There may be minor misspellings or grammar miscues with uConnect voice recognition. documented in this encounter [facility] 08-05-2022 Miscellaneous Notes Patient notified and voices understanding. Spoke to the pharmacy and patient was given 67 tablets of the Effexor. calling to request refill for pt's effexor. (Script pended from earlier call). states pt is out of medication and took his last dose on 08/03/22. reports she isn't sure if 67 pills were dispensed at last refill because pt is out and she is not sure why. Pt should have pills remaining at this time. reports she believes pt has been taking the medication as prescribed. Please advise. Thank you. documented in this encounter [facility] 07-15-2022 Instructions Tayler Gonsalez APRN.VINITA - 07/15/2022 3:30 PM EST Gita Carpenter, It was good to talk with you today. Below is a summary of the plan that we discussed during your appointment for reference. Of course, if you have any questions or concerns do not hesitate to reach out to me via a message or call. Best, Tayler Gonsalez APRN.STRATEGY ASSOCIATE PLAN AND FOLLOW UP: YOU SHOULD SEEK IMMEDIATE MEDICAL ATTENTION AT THE NEAREST EMERGENCY DEPARTMENT OR BY CALLING 911, IF ANY OF THE FOLLOWING OCCURS: - New or worsening thoughts of harming yourself (suicidal thoughts) or others (homicidal thoughts) - Not feeling safe at home or worrying about your ability to remain safe at home If you are having thoughts of harming yourself or others, then you can: - Call the National Suicide Hotline at 3-529-EJOJULX ( ) or 5-744-238-TALK (6766) - Text 4HOPE to 720795 Medication Update: Starting today, decrease Paxil to 40 mg once daily, after 1 week, cut it down to 20 mg (1/2 tablet of 40 mg). 2. Starting today, Effexor 37.5 mg XR - take 1 capsule once daily with food for 7 days, then take 2 capsules once daily with food after that. 3. Propranolol 40 mg - take 1 tablet up to twice daily as needed to manage the panic symptoms. 4. Continue Hydroxyzine at the same dose. Next appointment: --Schedule in 4 weeks or sooner if needed -- You may call the department appointment line at [phone] to schedule your appointment. -- Please call my nurse Mary Beth at [phone] or send me a message in [employer] with any questions or concerns between appointments. documented in this encounter [facility] 07-15-2022 History of Presen t illness Narrative Images from the original note were not included. PSYC FOLLOW UP - PSYCHIATRIC PROGRESS NOTE DIAGNOSIS: Panic disorder without agoraphobia None GAF: -60-51 Moderate symptoms or moderate difficulty in social, occupational or school functioning. TREATMENT PLAN: Cross taper from Paxil to Effexor to help with anxiety and panic symptoms. Increase Propranolol dose to help him manage the physical symptoms of anxiety during the panic attack. Utilize hydroxyzine as needed to help with anxiety. Follow up in 4 weeks. Medication Update: Starting today, decrease Paxil to 40 mg once daily, after 1 week, cut it down to 20 mg (1/2 tablet of 40 mg). 2. Starting today, Effexor 37.5 mg XR - take 1 capsule once daily with food for 7 days, then take 2 capsules once daily with food after that. 3. Propranolol 40 mg - take 1 tablet up to twice daily as needed to manage the panic symptoms. 4. Continue Hydroxyzine at the same dose. The effects and the side effects of all the medications were reviewed in detail with the patient. He is in agreement with the treatment plan and aware to reach out with any questions, concerns, or worsening of symptoms prior to the next appointment. CC: Follow up regarding anxiety and panic symptoms. With the patient consent, visit was performed virtually. HPI: Aldair Yepez is a 27 year old Male with a history of Panic disorder presenting today for follow-up. Date of last visit: 02/21/2022 Plan from last visit: 1. Increase Paxil dose to address his panic symptoms. 2. Utilize propranolol to help manage somatic symptoms of anxiety. 3. Utilize hydroxyzine as needed to help with anxiety symptoms. 4. Follow up in 4 weeks. 5. Get Biotene mouth wash to help with dry mouth side effects. Today Baltazar shares he is doing okay. He tried the increased dose of the Paxil but still struggled with panic symptoms. He gets panic attacks if he tries to leave [place]. Propranolol only helped for a short time and then it wore off and he had to drive back into town. He denies any side effects with the Propranolol. Notices intermittent dizziness side effects from the Paxil. Denies any other side effects. Hydroxyzine has been helping with anxiety and he has been leaning on that more lately and Biotene has been helpful for the dry mouth side effect. They just had another baby and his sleep has been impacted due to this. Denied changes in appetite. Denies any other concerns with his physical health. Interval Progress: Slightly worse Risks and benefits of the medication, including any black box warnings, were discussed with the patient. Social History: See HPI PATIENT DATA: Generalized Anxiety Disorder Scale (SANJAY-7) SANJAY - 7 SCORES 01/21/2022 02/21/2022 07/13/2022 SANJAY-7 Score 18 9 8 (0-4) minimal anxiety, (5-9) mild anxiety, (10-14) moderate anxiety, (15-21) severe anxiety Patient Health Questionnaire (PHQ-9) PHQ-9 01/21/2022 02/21/2022 07/13/2022 Score 6 0 11 (0-4) minimal depression, (5-9) mild depression, (10-14) moderate depression, (15-19) moderately severe depression, (20-27) severe depression ROS: General: Negative for fever, malaise, unintentional weight loss HEENT: Negative for recent changes in vision or hearing, no nasal drainage Respiratory: Negative for cough, wheezing or SOB Cardiovascular: Negative for chest pain GI: Negative for nausea, vomiting, change in bowel habits MUSCULOSKELETAL: Negative for acute back or joint pain SKIN: Negative for rash NEURO: Negative for headaches, seizures, focal neurological deficits All other systems negative. VITAL SIGNS: BP Temp Pulse Resp SpO2 MENTAL STATUS EXAMINATION: Appearance: Appropriately groomed, appears stated age Behavior: Appropriately engaged Psychomotor: No psychomotor agitation Cognition Level of Consciousness: Awake and alert. No fluctuation in wakefulness. Orientation: Grossly oriented Memory: Intact Attention/Concentration: Good Fund of Knowledge: Able to demonstrate an awareness of current events. Mood: Anxious Affect: Congruent to mood Speech/Language: Appropriate tone, prosody, kristin, phonetics, and syntax Thought Form: Goal-directed. No loosening of associations. Thought Content: No delusions noted or endorsed. Perceptual Disturbances: Did not appear to respond to auditory stimuli. Safety: Suicidal Ideations: No suicidal ideation, intent or plan. Homicidal Ideations: No homicidal ideation, intent or plan. Insight: Appropriate Judgment: Appropriate I spent a total of 28 minutes on the date of the service which included preparing to see the patient, [id number] patient care, completing clinical documentation, and counseling and educating the patient/family/caregiver, ordering medications/labs. Tayler Gonsalez APRN.STRATEGY ASSOCIATE July 15, 2022 2:56 PM This note was partially generated using uConnect voice recognition system. Note was reviewed for accuracy. There may be minor misspellings or grammar miscues with [employer]Connect voice recognition. documented in this encounter [facility] 06-24-2022 Miscellaneous Notes Patient's spouse requesting refill of patient's paxil. Reports patient is out of medication and took last pill yesterday. Next appt with Tayler is scheduled for 07/15/22. Script pended for review. Please call Tali once script has been sent to pharmacy. Thank you. Patient has been identified by name and date of : Yes Spouse phones for refill(s): Requested Prescriptions Pending Prescriptions Disp Refills PARoxetine (PAXIL) 40 mg tablet 30 tablet 5 Sig: Take 1.5 tablets by mouth once daily. Date of last office visit in primary care: 03/22/22 Last 2 Encounter Wt Readings: Date: Wt: 05/26/2022 156 kg (344 lb) 03/22/2022 151 kg (333 lb) Thank you. Devi Gross RN documented in this encounter [facility] 05-09-2022 History of Presen t illness Narrative Radiology Service Progress Note PATIENT NAME: Aldair Yepez DATE OF SERVICE: May 09, 2022 TIME: 11:44 AM PATIENT IDENTITY VERIFICATION COMPLETED USING TWO (2) IDENTIFIERS: Name and Date of confirmed by patient verbally. FALL SCREENING: Has the patient had 2 falls in the last year or 1 fall with injury or currently using an Ambulatory Assistive Device (Walker, Cane, Wheelchair, Crutches, etc.)? No PATIENT GENDER DATA: Male PATIENT RELEVANT IMPLANT DATA REVIEWED: Yes RADIOLOGY DEPARTMENT: MR; Exam(s) Completed: Upper MSK: Shoulder, left PERIPHERAL IV DATA: Not applicable SIGNED BY: RT Spike(R) May 09, 2022 11:44 AM documented in this encounter [facility] 04-28-2022 History of Presen t illness Narrative Radiology Service Progress Note PATIENT NAME: Aldair Yepez DATE OF SERVICE: April 28, 2022 TIME: 11:36 AM PATIENT IDENTITY VERIFICATION COMPLETED USING TWO (2) IDENTIFIERS: Name and Date of confirmed by patient verbally. FALL SCREENING: Has the patient had 2 falls in the last year or 1 fall with injury or currently using an Ambulatory Assistive Device (Walker, Cane, Wheelchair, Crutches, etc.)? No PATIENT GENDER DATA: Male PATIENT RELEVANT IMPLANT DATA REVIEWED: Not Applicable RADIOLOGY DEPARTMENT: General X-ray: Exam(s) Completed: Upper Extremity X-Ray(s): Shoulder, AP / TRUE AP / AXILLARY left PERIPHERAL IV DATA: Not applicable SIGNED BY: RT Dominique(Mark) April 28, 2022 11:36 AM documented in this encounter [facility] 04-28-2022 History of Presen t illness Narrative Anuel Mckenna MD Department of Orthopaedics Orthopaedics [address] [place] [id number] Dept: [phone] Dept April 28, 2022 CHIEF COMPLAINT: New and Pain of the Left Shoulder HPI Patient here today for left shoulder pain x 1.5 months. He reports that he rolled a wanigan clerk. He was seen at [facility] after the injury. He was referred to PT by PCP office and was seen, but PT felt patient should see Ortho. He is left hand dominant. ASSESSMENT: M25.512 Acute pain of left shoulder (primary encounter diagnosis) S46.012A Traumatic complete tear of left rotator cuff, initial encounter PLAN: Due to the initial, traumatic nature of the injury, his impressive limitations and weakness shoulder, and radiographic findings, MRI is required to assess his rotator cuff which I suspect is completely torn. FOLLOW UP INSTRUCTIONS: We will see him back after imaging Mr. Aldair Yepez was advised as to contrast therapies and/or to take analgesics/anti-inflammatories as needed and all contraindications were reviewed. OBJECTIVE: Mr. Aldair Yepez is a pleasant 27 year old in no apparent distress. Gen:There were no vitals taken for this visit. nl development, morbidly obese , no deformities ENT: Normocephalic, normal hearing, moist mucosa CV: Pulses:Radial= 2+ and symmetric, capillary refill < 2 secs, no peripheral edema/varicosities Skin: no rash, bruising or lesions. Good turgor. Psych: cooperative and appropriate, alert and oriented x 3, good mood and affect. Musculoskeletal: Supple range of motion of the cervical spine without pain. Spurling signs are negative. No atrophy of the deltoid and shoulder musculature. Left shoulder is nontender to palpation over the SC joint, clavicle and AC joint. Positive tenderness to palpation over the posterior shoulder, positive tenderness palpation over the anterior lateral corner of the shoulder and greater tuberosity. Nonpainful at the bicipital groove with some discomfort at the anterior joint line. Active range of motion is markedly diminished with only 60 degrees of forward elevation, 20 degrees external rotation, and internal rotation to the lateral hip. Passive range of motion is 150, 40, low lumbar, respectively. No laxity with anterior and posterior stress. Painful Neer and Cavazos impingement signs. 3/5 strength with supraspinatus, infraspinatus and weakness with belly press. Sensation is intact in the axillary, radial, median and ulnar nerve distribution IMAGING: IMPRESSION: Findings are suggestive of age indeterminate fracture in the greater tuberosity. Admissions Coordinator: RICARDO Transcribe Date/Time: Apr 29 2022 2:28P Dictated by : ELINA TORRES MD This examination was interpreted and the report reviewed and electronically signed by: ELINA TORRES MD on Apr 29 2022 2:42PM EST Results-Findings * * *Final Report* * * DATE OF EXAM: Apr 28 2022 11:45AM WRX [id number] - XR SHLDR >/=3V AP/ROMAN AP/OTHR LT / PROCEDURE REASON: Acute pain of left shoulder * * * * Physician Interpretation * * * * EXAM TITLE: XR SHLDR >/=3V AP/ROMAN AP/OTHR LT EXAM DATE/TIME: 04/28/2022 11:45 AM COMPARISON: None. CLINICAL INDICATION/HISTORY: Injury TECHNIQUE: AP, true AP and axillary views of the left shoulder are presented FINDINGS: Bony fragmentation is visualized along the greater tuberosity of the left humerus, with some callus formation. No subluxation of the left shoulder. The acromioclavicular and glenohumeral joint spaces are maintained. The mineralization of the bones is normal. There is no significant soft tissue swelling. Supporting Subjective Information Below: Past Medical History: PAST MEDICAL HISTORY Diagnosis Date SANJAY (generalized anxiety disorder) 08/16/2019 Globus sensation 08/16/2019 improved with treatment of anxiety Obesity, Class II, BMI 35-39.9 09/16/2019 Panic attack 08/30/2019 PMH - PAST MEDICAL HISTORY OF 2009 normal color vision Seasonal allergic rhinitis 12/24/2020 Past Surgical History: PAST SURGICAL HISTORY Procedure Laterality Date CIRCUMCISION COLONOSCOPY FLX DX W/COLLJ SPEC WHEN PFRMD 09/17/2019 Colonoscopy EGD 07/2019 FINGER AMPUTATION (SPECIFY DIGIT) HX Right distal thumb and index- accidental. MYRINGOTOMY ASPIR&/EUSTACHIAN TUBE NFLTJ ANES Myringotomy/tubes MYRINGOTOMY ASPIR&/EUSTACHIAN TUBE NFLTJ ANES Myringotomy/tubes Family History: FAMILY HISTORY Problem Relation Age of Onset Heart Maternal Grandfather [place] Hypertension Mother None Father Heart Maternal Uncle MVP Social History: Social History Tobacco Use Smoking status: Never Smokeless tobacco: Current Vaping Use Vaping Use: Never used Substance Use Topics Alcohol use: No Drug use: No Medications: Current Outpatient Medications Medication Sig PARoxetine (PAXIL) 40 mg tablet Take 1.5 tablets by mouth once daily. propranolol (INDERAL) 20 mg tablet Take 1 tablet by mouth three times daily as needed. hydrOXYzine HCl (ATARAX) 25 mg tablet Take 1 to 2 tablets every 6 hours prn anxiety/panic attacks. fluticasone (FLONASE) 50 mcg/actuation nasal spray Use 2 Sprays in each nostril once daily. Rinse mouth after use. (Patient not taking: Reported on 08/12/2021 ) No current facility-administered medications for this visit. Allergies: Patient has no known allergies. ROS: General (negative for fatigue, malaise, weight loss/gain) HEENT (negative for headache, earache, recent vision changes, sinus pain, sore throat) Respiratory (no recent shortness of breath, hemoptysis) CV (negative for chest tightness, palpitations) Musculoskeletal (see HPI) Psych (no depression, anxiety) REFERRING PHYSICIAN: Mr. Aldair Yepez was referred to me for consultation by the following physician. This consultation note will be sent to the following physician by either mail or electronic medical record. Anuel Mckenna [address] [facility] [address] Clarence Rodriguez MD [address] [facility] [id number] Anuel Mckenna MD documented in this encounter [facility] 04-08-2022 Miscellaneous Notes Received a message from PT. Concerned about a significant rotator cuff tear. Referral placed for ortho. Encouraged to schedule back for follow-up. Nae Domínguez APRN.VINITA documented in this encounter [facility] 04-07-2022 History of Presen t illness Narrative Episode Visit Count: 1 Therapist That Will Accept/Oversee The Plan Of Care: Cesar Slaughter Start of Care Date: 04/07/22 Onset Date: 03/17/22 Patient Identified by Name and Date of : Yes [facility]ERAPY PHYSICAL THERAPY EVALUATION PLAN OF CARE: Assessment: Aldair Yepez presents with chief complaint of L shoulder pain and biceps pain that interferes with lifting;physical activities;recreational activities;working;reaching behind back;reaching overhead;use hand with arm at shoulder level;carrying . He presents with impairments in ADL's, independence in exercise, joint mobility, overall function, range of motion, strength , and tissue tenderness. PROMIS (Patient-Reported Outcomes Measurement Information System) scores were reviewed and all domains identified as a rehabilitation concern. Prognosis for therapy is Poor due to: clinical presentation. Pt presentation is not appropriate for physical therapy at this time. Pt presents with signs and symptoms of a potentially massive RTC tear which requires further evaluation from primary care physician or water rights specialist for further imaging and updated plan of care. Goals for Episode of Care: created on 04/07/22 through 05/07/22 [place] in home exercise program. Patient will decrease pain rating by 2 points to meet minimal clinical important difference for numeric pain rating scale. Perform ADL's with decreased report of symptoms/pain in 12 weeks. Perform work tasks and functions without pain. Planned Interventions, Frequency, and Duration: Current Frequency: 2x/week Duration: 4 weeks Total Number of Visits Planned: 8 Planned Treatment Interventions: Therapeutic exercise (72658);Neuromuscular re-education (93998);Manual therapy (23832);Therapeutic activities (50461);Self-longterm management (97412) PLAN FOR NEXT VISIT: Pt to follow up with PCP or water rights specialist Patient demonstrates good understanding of plan of care and treatment. The above goals and plan of care were discussed and agreed upon by patient/family. SUBJECTIVE: Aldair Yepez is a 27 year old male seen today for Pt presents approximately 3 weeks following a wanigan clerk accident in which the mower rolled and landed on his L shoulder. Follow a visit to the ER, x-rays were negative but pt should decreased ability to flex, abduct, externally rotate and overall contract shoulder muscles. TTP at biceps insertion and infraspinatus. Functional Limitations: lifting;physical activities;recreational activities;working;reaching behind back;reaching overhead;use hand with arm at shoulder level;carrying Prior Level of Function: Independent without limitations Intake Information: Prescription present Previous Treatment: None Pain: Pain Pain Level: 10 Pain Location: Shoulder - Left (Biceps insertion - Left) Description: Sharp;Shooting;Radiating;Stabbin g Frequency: Continuous Post Treatment Pain Post Treatment Pain Level: 10 Post Treatment Pain Location: Shoulder - Left Post Treatment Pain Description: Shooting;Stiffness;Tightness;Thr obbing PROMIS Scales Higher is Better 07/25/2019 02/21/2022 04/06/2022 Phys Func - Score - - 32 (moderate dysfunction) Phys Func - Percentile - - 4 % GH Physical - Score 50.8 Incomplete - GH Physical - Percentile 53 % - - GH Mental - Score 56 45.8 (Good) - GH Mental - Percentile 73 % 34 % - Self-Eff Symptom - Score - - 31 (Low) Self-Eff Symptom - Percentile - - 3 % T-scores: mean of general population = 50. 5 points is clinically meaningfully difference Percentiles provide an indication of how the patient's score ranks in relation to the general population. Higher percentile rankings indicate better function/quality of life. 50th percentile is the average of the general population and indicates half of respondents had a worse score. T-scores: mean of general population = 50. 5 points is clinically meaningfully difference Percentiles provide an indication of how the patient's score ranks in relation to the general population. Higher percentile rankings indicate better function/quality of life. 50th percentile is the average of the general population and indicates half of respondents had a worse score. OBJECTIVE MEASURES WITH LEVEL OF FUNCTION: Posture / Alignment UE Observations: Moderate atrophy to L sided Rotator cuff muscles, infraspinatus R Shoulder Alignment: (L shoulder lower than R) Shoulder Observations L Shoulder Presents with: Atrophy;Swelling Atrophy: Atropy of muscle bulk in posterior shoulder L Shoulder Palpation Tenderness: Rotator cuff muscles;Coracoid process UE AROM L UE AROM: Severely limited L Shoulder Extension: (Maximal limitation) L Shoulder Flex: (Maximal limitation) L Shoulder ABduction: (Maximal limitation) L Shoulder Internal Rotation: (Moderate limitation) L Shoulder External Rotation: (Maximal limitation - painful) UE PROM L UE PROM: Can passively move into normal ranges in all directions Special Tests - Shoulder Shoulder Special Tests: Comments Shoulder Special Tests Comments: Painful arc postive for shrug sign, pt unable to move shoulder out of resting position Education: Education Learning/educational needs: Plan of Care Education Provided: Yes, see treatment interventions for education provided Education Provided To: Patient TREATMENT: PT Treatment Interventions: Therapeutic Exercise Evaluation Evaluation Therapeutic Exercise: 1: *Pulleys 8min 2: *IR/ER and flexion isometrics 3: *Shoulder flexion on table 4: *Shoulder pendulums 2x20 each direction Skilled Intervention: Patient was educated in proper exercise technique and purpose for exercises. Reviewed and educated patient on additions/changes for home exercise program as above (*). Skilled judgment was provided in selection of appropriate interventions. Provided written instruction for home exercise program to facilitate proper performance and compliance. Correct performance of therapeutic exercises was facilitated with verbal cuing. Billing * Evaluation Low Complexity: 1 Unit Therapeutic Exercise Treatment Minutes: 10 Total Treatment Time Minutes (timed/untimed): 25 Geovanni Pedersen, SPT Cesar Slaughter PT Supervising therapist was present and guided the care of the patient for the entire session on this date. All documentation was reviewed and agreed upon. Cesar Slaughter PT documented in this encounter [facility] 03-29-2022 Miscellaneous Notes Referral placed. Please help schedule. Nae Domínguez APRN.VINITA Ok to order PT for shoulder? Or do you want pt to come in again? documented in this encounter [facility] 03-29-2022 Miscellaneous Notes See MC message. Kidney pain and blood are improved. TC to pt, left detailed message. Pt to return call back to office with an update. Michael Hernandez LPN Can please let patient know that I received his urine culture. It did show an infection and that he is on the appropriate antibiotic. How is he feeling? Thanks, Nae Domínguez APRN.VINITA documented in this encounter [facility] 03-23-2022 Miscellaneous Notes Pt notified. He verbalized understanding. Michael Hernandez LPN I went ahead and sent a prescription for percocet into the pharmacy. Please make sure that he is aware that he is not to use both this and the hydrocodone. It is one or the other. He also can still use ibuprofen for pain, as well. See pt message. He was just seen yesterday and states the pain medication is not helping. Was given [place]. Urine Cx in process. Nhi Rueda Ma documented in this encounter [facility] 03-23-2022 Miscellaneous Notes MC message's read by pt. See MC message. Michael Hernandez LPN MC message sent. Michael Hernandez LPN In addition to the below note, can let patient know that I did receive his labs. It overall looks okay. The liver enzymes were just minimally elevated. The CT did show something called fatty liver. This would cause that mild elevation in the liver enzymes. While it is usually not problematic; it can cause cirrhosis (or scarring of the liver) -- which can be problematic. Measures to prevent this include: 1. Weight loss 2. Good control of diabetes 3. Good control of cholesterol. Nae Domínguez APRN.VINITA Images from the original note were not included. Labs copied from [employer]: message to pt. Michael Hernandez LPN Can please let patient know that I received his [facility] results from [facility]. Thankfully, everything looked normal. He does have a stone a nonobstructing stone in the left kidney, but this shouldn't be causing any problems. Please continue the antibiotic to cover for possible urinary infection. For the shoulder, please continue to work on gentle stretching and ice. He can use the pain medication as needed. We should also consider physical therapy to help with his shoulder. We could also consider a referral to ortho, if no improvement and continued pain. Please let me know how he would like to proceed with that. The labwork isn't back yet. We'll let him know when we receive that. Nae Domínguez APRN.VINITA documented in this encounter [facility] 03-22-2022 History of Presen t illness Narrative This is a 27 year old male who presents today with: Patient presents with: ER F/U: [facility] ER follow up 03/15 dx: mower rolled over on him HISTORY OF PRESENT ILLNESS: Aldair Yepez is a 27 year old male. Patient presents with: ER F/U: [facility] ER follow up 03/15 dx: mower rolled over on him Pt presents today for ER follow-up. Patient presented to the emergency room on 03/15/2022 after an industrial lawnmower on an incline and rolled over onto him. He was able to self extricate himself. He denies any loss of consciousness. He reported that he has pain in the left shoulder. He also had pain in the left ribs. He had a normal x-ray of the left shoulder. He had a normal x-ray of the ribs. He had a normal x-ray of the chest. He had declined any treatment for pain at that time. He has been taking Tylenol and ibuprofen at home. Refers that shoulder has been getting progressively worse. His range of motion is limited. There is no numbness or tingling. No popping or cracking of the shoulder. Reports that since being in the emergency room, he did have hematuria for a couple of days. Hematuria for 2-3 days. Called the hospital about 2 days ago. Per patient, told normal and just healing Refers that last night is when the back really got sore. He has not had any further gross hematuria. He does report that he did have frequency a few days ago. No dysuria. No fevers or chills. He does have a history of kidney stones. PAST MEDICAL HISTORY: PAST MEDICAL HISTORY Diagnosis Date SANJAY (generalized anxiety disorder) 08/16/2019 Globus sensation 08/16/2019 improved with treatment of anxiety Obesity, Class II, BMI 35-39.9 09/16/2019 Panic attack 08/30/2019 PMH - PAST MEDICAL HISTORY OF 2008 normal color vision Seasonal allergic rhinitis 12/24/2020 PAST SURGICAL HISTORY Procedure Laterality Date CIRCUMCISION COLONOSCOPY FLX DX W/COLLJ SPEC WHEN PFRMD 09/17/2019 Colonoscopy EGD 07/2019 FINGER AMPUTATION (SPECIFY DIGIT) HX Right distal thumb and index- accidental. MYRINGOTOMY ASPIR&/EUSTACHIAN TUBE NFLTJ ANES Myringotomy/tubes MYRINGOTOMY ASPIR&/EUSTACHIAN TUBE NFLTJ ANES Myringotomy/tubes ALLERGIES Patient has no known allergies. MEDICATIONS Current Outpatient Medications Medication Sig PARoxetine (PAXIL) 40 mg tablet Take 1.5 tablets by mouth once daily. propranolol (INDERAL) 20 mg tablet Take 1 tablet by mouth three times daily as needed. hydrOXYzine HCl (ATARAX) 25 mg tablet Take 1 to 2 tablets every 6 hours prn anxiety/panic attacks. fluticasone (FLONASE) 50 mcg/actuation nasal spray Use 2 Sprays in each nostril once daily. Rinse mouth after use. (Patient not taking: Reported on 08/12/2021 ) No current facility-administered medications for this visit. FAMILY HISTORY Problem Relation Age of Onset Heart Maternal Grandfather [place] Hypertension Mother None Father Heart Maternal Uncle MVP Social History Tobacco Use Smoking status: Never Smokeless tobacco: Never Vaping Use Vaping Use: Never used Substance Use Topics Alcohol use: No Drug use: No EXAM: BP 146/100 Pulse 98 Resp 18 Wt (!) 151 kg (333 lb) SpO2 98% BMI 42.29 kg/m PHYSICAL EXAM: General Appearance: Well appearing, alert, in no acute distress, well-hydrated, well nourished.. Skin: Skin color, texture, turgor normal, no suspicious rashes or lesions. Head: Normocephalic, no masses, lesions, tenderness or abnormalities. Eyes: Anicteric sclera. Pupils are equally round and reactive to light. Extraocular movements are intact. Lungs: Lungs clear to auscultation. No wheezing, rhonchi, rales.. Heart: RRR without murmur, gallop, or rubs. No ectopy. Abdomen: Abdomen soft, some mild RUQ tenderness. + R CVA tenderness. Bowel sounds normal. No masses, organomegaly. Extremities: No deformities, edema, skin discoloration, clubbing or cyanosis. Good capillary refill. Pt unable to flex or abduct the left arm past 45 degrees. Neurologic: Gait normal. ASSESSMENT/PLAN: 1. Flank pain - ICD9: 789.09, ICD10: R10.9 (primary diagnosis) Patient with reported gross hematuria and will right flank pain noted after an rollover accident with a lawnmower. Concern for acute abdomen/bleeding. Urine dip was positive for hematuria. Patient does have CVA and right upper quad tenderness. Urine dip shows positive blood, nitrates, protein. Patient also with known history of kidney stones. We will go ahead and get CT imaging to rule out trauma/bleeding and stone. We will go ahead and start Bactrim to cover for infection. As needed Vicodin for pain. We will also get stat labs to rule out any anemia and or decreased kidney function. - UA DIP, URINE (POC) - CT ABD/PEL WO IVCON - CBC + DIFF - COMP METABOLIC PANEL - HYDROCODONE 5 MG-ACETAMINOPHEN 325 MG TABLET - SULFAMETHOXAZOLE 800 MG-TRIMETHOPRIM 160 MG TABLET - URINE CULTURE - URINALYSIS, WITH MICROSCOPIC 2. Acute cystitis with hematuria - ICD9: 595.0, ICD10: N30.01 - SULFAMETHOXAZOLE 800 MG-TRIMETHOPRIM 160 MG TABLET 3. Acute pain of left shoulder - ICD9: 719.41, ICD10: M25.512 Gentle stretching. Vicodin as needed for pain. - HYDROCODONE 5 MG-ACETAMINOPHEN 325 MG TABLET Discussed treatment plan and patient voices understanding. Patient's questions answered appropriately. Medications and potential side effects were discussed and patient voices understanding. Return to the office as scheduled or as needed for worsening/no improvement. Nae Domínguez APRN.CNP This note was partially generated using uConnect voice recognition system. Note was reviewed for accuracy. There may be minor misspellings or grammar miscues with Dragon voice recognition. documented in this encounter [facility] 03-15-2022 History of Presen t illness Narrative 27 year old male presents with complaints of flipping wanigan clerk. Endorses one hour CURATORIAL SPECIALIST patient was on a large riding wanigan clerk.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 indicated at this time MANSOOR De La Vega December 30, 2021 documented in this encounter [facility] 12-28-2021 Miscellaneous Notes Behavioral Health Social Work Progress Note Patient identified for [facility] from: PCP (Chu Zhao) Reason for referral: SW Assessment (failed mental health tx, SANJAY,panic) [facility] encounter type: Telephone Encounter Attempts to Outreach: 4 attempts Final Disposition: Other (12-28-21 Informed , unable to sched appt due to insurance out of network) Patient Discharged?: Yes Patient reported that caregiver was able to meet their needs today?: N/A [facility] received a msg from license registration examiner Pt is unable to be scheduled -insurance is out of network [facility] attempted to contact Pt -left vm on his cell number -contacted and informed her the appt was cancelled due to insurance being out of network - offered to pay out of pocket -informed her she would need to talk with financial dept - stated she will contact the insurance company and get things worked out -SW recommended inquiring about covered behavioral health services when talking with the insurance. agreed to inform [facility] of the outcome of her conversation with the insurance No further contact is indicated -will wait to hear from MANSOOR De La Vega December 28, 2021 documented in this encounter [facility] 12-27-2021 Miscellaneous Notes Behavioral Health Social Work Progress Note Patient identified for [facility] from: PCP (Chu Zhao) Reason for referral: [facility] Assessment (failed mental health tx, SANJAY,panic) [facility] encounter type: Telephone Encounter Attempts to Outreach: 2 attempts Referral made: Psychology - Internal Psychology-Internal referral type: (scheduled bh assessment for 01-07-22 at 9am virtual) SW received a msg from Chu Zhao - would like for Pt to see [facility] psychiatry provider [facility] attempted to contact Pt -no answer [facility] for 01-07-22 at 9am virtual -sent mychart msg with appt info, consent for tx, PHQ9 and GAD7 MANSOOR De La Vega December 27, 2021 documented in this encounter [facility] 12-27-2021 Miscellaneous Notes Spoke with and they are in agreeable to scheduling with Psychiatrist. Please schedule. Patricia Carpenter MA Noted.. the other thing which I offered in a previous note is to get set up with [facility]. Dequan called Baltazar and Baltazar told us that he was already seeing someone so if he prefers to get set up with an in person option, please let us know so we can start the process over again. Caryl Green PA-C Pt is only see a counselor right now. reports they can get him in to see a psychiatrist at the place he is going to. Let her know that it would be good to make an appointment soon, so they cold start handling his medications. She verbalized understanding. A counselor is not a psychiatrist. I need to make sure they understand what the difference is. Is he seeing a psychiatrist?? Caryl Green PA-C Patient's calls back and states that patient did see counselor yesterday. notified that they should be managing medications. voiced understanding. Chely Rainey RN Left message for pt's to contact office. Vika Hernandez LPN Please talk with patient/ to clarify. Didn't he have a psychiatrist visit yesterday. He told our [facility] on 12/22 that he had a visit with psychiatrist on on 12/23 at 8am. They should be managing medications at this point. Caryl Green PA-C Patient's calling to say patient is feeling dizzy/anxious and is asking if it's because he stopped taking both Paxil and Buspar. Advised patient's there is a My Chart message from Caryl saying that she did not say to stop medication but to decrease Buspar back to 7.5 mg twice daily. This nurse read the full message to patient's . She states he will resume both medications tonight and go to ER if symptoms worsen or persist. Alia Nuñez RN documented in this encounter [facility] 12-22-2021 Miscellaneous Notes BEHAVIORAL HEALTH SOCIAL WORK CONSULT NOTE Service Date: December 22, 2021 Patient was identified by name and Patient: Aldair Yepez [address] [place] [address] (home) [phone] (cell) PCP: Clarence Rodriguez MD [address] [facility] [id number] Patient identified for [facility] from: PCP (Chu Zhao) Reason for referral: [facility] Assessment (failed mental health tx, SANJAY,panic) [facility] encounter type: Telephone Encounter Assessment: [facility] received a consult from Chu Zhao, for assessment failed mental health tx, SANJAY, panic [facility] reviewed Pt's chart/insurance [facility] contacted Pt -he was unaware [facility] would be calling -stated has been communicating with [facility] office -reported he is receiving services from [facility], on line service -has seen a counselor -has an appt with a psychiatrist tomorrow at 8am Prefers to cont with current providers and not switch services at this time -Pt thanked [facility] for calling [facility] notified Chu Zhao, has services and will be seeing a psychiatrist tomorrow No further contact is indicated at this time. Medications: Current Outpatient Medications on File Prior to Visit Medication Sig busPIRone (BUSPAR) 15 mg tablet Take 1 tablet by mouth twice daily. PARoxetine (PAXIL) 40 mg tablet Take 1 tablet by mouth once daily. hydrOXYzine HCl (ATARAX) 25 mg tablet Take 1 to 2 tablets every 6 hours prn anxiety/panic attacks. fluticasone (FLONASE) 50 mcg/actuation nasal spray Use 2 Sprays in each nostril once daily. Rinse mouth after use. (Patient not taking: Reported on 08/12/2021 ) No current facility-administered medications on file prior to visit. Curbside: No Screening Tools: No Substance Use / Abuse: No Outcome / Plan / Referrals: Attempts to Outreach: 1 attempt Final Disposition: Care established with (12-22-21 Pt stated he is receiving counseling and psychiatry service from [facility]) Patient Discharged?: Yes Patient reported that caregiver was able to meet their needs today?: N/A Internal Referrals : No Reason for External Referrals : Other : Pt is established with behavioral health services, counseling and psychiatry at [facility], on line service Intervention: Supportive Listening Resources Provided: Other: none at this time Pt is established with behavioral health services Time Spent: 15 minutes MANSOOR De La Vega documented in this encounter [facility] 12-21-2021 Miscellaneous Notes noted Patient's calls and states that patient is feeling better. states that patient is just going to stop taking medication. Patient is not going to ER. Chely Rainey RN documented in this encounter [facility] 12-21-2021 Miscellaneous Notes Spoke with pt's . She advises that he is not back to normal and will take pt to [facility] ER as instructed by Caryl. Vika Hernandez LPN Is he back to normal now? If not, go to ER. Otherwise he can cut the buspar in half to go back to the 7.5mg dose. Caryl Green PA-C Pts called in and reports her woke up this morning and did not recognize himself or his features. She states he did not have this issues when he went to bed, and knew who everyone else was and they didn't look strange to him. She reports his does of Buspar had gotten increased when he was in on 12/15/21. Pt took his Buspar this morning, takes another one at night as well as his Paxil at night. Please call and advise. Call 's phone as Pt is at work now. documented in this encounter [facility] 12-15-2021 History of Presen t illness Narrative Chief Complaint Patient presents with: Recheck: medication HPI Aldair Yepez is a 26 year old male who presents here today for Chronic Medical Conditions.. Patient with hx of SANJAY, panic attacks, obesity, and allergies. At last visit in July we started him on buspar to take with paxil. He has noted some improvement but still cannot get past the anxiety symptoms to leave town. He is able to go to work. Panic episodes only happen when he needs to leave town. Next week will be his first session with counseling virtually. He is also scheduled with counseling center but this isn't set up until end of January. No SE from the medications. Past medical history, appointments, medications, allergies reviewed. Previous Medical History PAST MEDICAL HISTORY Diagnosis Date SANJAY (generalized anxiety disorder) 08/16/2019 Globus sensation 08/16/2019 improved with treatment of anxiety Obesity, Class II, BMI 35-39.9 09/16/2019 Panic attack 08/30/2019 PMH - PAST MEDICAL HISTORY OF 2008 normal color vision Seasonal allergic rhinitis 12/24/2020 Previous Surgical History PAST SURGICAL HISTORY Procedure Laterality Date CIRCUMCISION COLONOSCOPY FLX DX W/COLLJ SPEC WHEN PFRMD 09/17/2019 Colonoscopy EGD 07/2019 FINGER AMPUTATION (SPECIFY DIGIT) HX Right distal thumb and index- accidental. MYRINGOTOMY ASPIR&/EUSTACHIAN TUBE NFLTJ ANES Myringotomy/tubes MYRINGOTOMY ASPIR&/EUSTACHIAN TUBE NFLTJ ANES Myringotomy/tubes Family History FAMILY HISTORY Problem Relation Age of Onset Heart Maternal Grandfather UT Hypertension Mother None Father Heart Maternal Uncle MVP Patient Allergies ALLERGIES No Known Allergies Current Medications Current Outpatient Medications on File Prior to Visit Medication Sig PARoxetine (PAXIL) 40 mg tablet Take 1 tablet by mouth once daily. busPIRone (BUSPAR) 7.5 mg tablet Take 1 tablet by mouth twice daily. hydrOXYzine HCl (ATARAX) 25 mg tablet Take 1 to 2 tablets every 6 hours prn anxiety/panic attacks. fluticasone (FLONASE) 50 mcg/actuation nasal spray Use 2 Sprays in each nostril once daily. Rinse mouth after use. (Patient not taking: Reported on 08/12/2021 ) No current facility-administered medications on file prior to visit. Social History Social History Tobacco Use Smoking status: Never Smoker Smokeless tobacco: Never Used Vaping Use Vaping Use: Never used Substance Use Topics Alcohol use: No Drug use: No Review of Symptoms REVIEW OF SYSTEMS see hpi EXAM: BP 116/86 (BP Site: Left Arm, BP Position: Sitting, BP Cuff Size: Large Adult) Pulse 76 Temp 36.7 C (98.1 F) Resp 18 Wt (!) 150.6 kg (332 lb) BMI 42.16 kg/m General Appearance: Well appearing, alert, in no acute distress, well-hydrated, well nourished.. Neck: Supple, no adenopathy; thyroid symmetric, normal size, no bruits. Lungs: Lungs clear to auscultation. No wheezing, rhonchi, rales.. Heart: RRR without murmur, gallop, or rubs. No ectopy. Peripheral Pulses: Normal. Health Maintenance List HPV VACCINE(1 - Male 2-dose series) Never done HEPATITIS C SCREENING due on 01/04/2022 COVID-19 VACCINE(1) due on 01/04/2022 INFLUENZA(Season Ended) due on 03/24/2022 DTAP,TDAP,TD(9 - Td or Tdap) due on 01/04/2031 HIV SCREENING Discontinued DEPRESSION SCREENING Discontinued Data reviewed ASSESSMENT/PLAN: 1. SANJAY (generalized anxiety disorder) - ICD9: 300.02, ICD10: F41.1 (primary diagnosis) Mildly improved Continue with counseling appointment that is upcoming. Increase buspar to 15mg bid 2. Panic attack - ICD9: 300.01, ICD10: F41.0 As above 3. Seasonal allergic rhinitis, unspecified trigger - ICD9: 477.9, ICD10: J30.2 Discussed trial OTC antihistamine with the amadoe. If not improving, can set up with applied behavior science specialist. Caryl Green PA-C documented in this encounter [facility] 12-10-2021 Miscellaneous Notes Patient spouse was notified Karen Novak Ma I would not suspect any serious SEs. May cause drowsiness or headaches. Maybe nausea or dizziness. Just monitor. Return to normal dosing tomorrow. Caryl Green PA-C Patient Tali calling with question, usually takes his generic Paxil at 7 pm. He took his dose last night and this morning he was still sleepy and took another dose at 9 am instead of his GERD medication. Is that going to cause any problems for him, taking so close together? Please advise documented in this encounter [facility] 12-03-2021 Miscellaneous Notes Spoke with pt's and she states she will schedule [facility] Vika Hernandez LPN Patient due for follow up Patient has been identified by name and date of : Yes Last office visit in this department: 08/12/2021 RX INSTRUCTIONS: Patient aware RX will be sent to pharmacy. No need to notify patient. Patient phones requesting refills as follows: Pending Prescriptions Disp Refills PAROXETINE 40 MG TABLET 30 tablet 5 Sig: Take 1 tablet by mouth once daily. LEANDRO: No Please review and advise. Clementina Christina documented in this encounter [facility] 12-03-2021 Miscellaneous Notes Already addressed. Last refill 05/12/21 Qty: 30 with 5 refills Last ov 08/12/21 No appt scheduled Vika Hernandez LPN documented in this encounter [facility] 08-16-2019 History of Past i llness Narrative Problem Noted Date Resolved Date Globus sensation 08/16/2019 09/16/2019 documented as of this encounter (statuses as of 12/03/2021) [facility] History of Past illness Narrative* Problem Noted Date Resolved Date Globus sensation 08/16/2019 09/16/2019 documented as of this encounter (statuses as of 12/03/2021) [facility] History of Past illness Narrative* Problem Noted Date Resolved Date Globus sensation 08/16/2019 09/16/2019 documented as of this encounter (statuses as of 12/10/2021) [facility] History of Past illness Narrative* Problem Noted Date Resolved Date Globus sensation 08/16/2019 09/16/2019 documented as of this encounter (statuses as of 12/15/2021) [place] [id number] History of Past illness Narrative* Problem Noted Date Resolved Date Globus sensation 08/16/2019 09/16/2019 documented as of this encounter (statuses as of 12/21/2021) [place] [id number] History of Past illness Narrative* Problem Noted Date Resolved Date Globus sensation 08/16/2019 09/16/2019 documented as of this encounter (statuses as of 12/21/2021) [place] [id number] History of Past illness Narrative* Problem Noted Date Resolved Date Globus sensation 08/16/2019 09/16/2019 documented as of this encounter (statuses as of 12/22/2021) [place] [id number] History of Past illness Narrative* Problem Noted Date Resolved Date Globus sensation 08/16/2019 09/16/2019 documented as of this encounter (statuses as of 12/27/2021) [place] [id number] History of Past illness Narrative* Problem Noted Date Resolved Date Globus sensation 08/16/2019 09/16/2019 documented as of this encounter (statuses as of 12/28/2021) [place] [id number] History of Past illness Narrative* Problem Noted Date Resolved Date Globus sensation 08/16/2019 09/16/2019 documented as of this encounter (statuses as of 12/30/2021) [place] [id number] History of Past illness Narrative* Problem Noted Date Resolved Date Globus sensation 08/16/2019 09/16/2019 documented as of this encounter (statuses as of 01/10/2022) [place] [id number] History of Past illness Narrative* Problem Noted Date Resolved Date Globus sensation 08/16/2019 09/16/2019 documented as of this encounter (statuses as of 01/21/2022) [place] [id number] History of Past illness Narrative* Problem Noted Date Resolved Date Globus sensation 08/16/2019 09/16/2019 documented as of this encounter (statuses as of 02/21/2022) [place] [id number] History of Past illness Narrative* Problem Noted Date Resolved Date Globus sensation 08/16/2019 09/16/2019 documented as of this encounter (statuses as of 03/15/2022) [place] [id number] History of Past illness Narrative* Problem Noted Date Resolved Date Globus sensation 08/16/2019 09/16/2019 documented as of this encounter (statuses as of 03/22/2022) [place] [id number] History of Past illness Narrative* Problem Noted Date Resolved Date Globus sensation 08/16/2019 09/16/2019 documented as of this encounter (statuses as of 03/23/2022) [place] [id number] History of Past illness Narrative* Problem Noted Date Resolved Date Globus sensation 08/16/2019 09/16/2019 documented as of this encounter (statuses as of 03/23/2022) [place] [id number] History of Past illness Narrative* Problem Noted Date Resolved Date Globus sensation 08/16/2019 09/16/2019 documented as of this encounter (statuses as of 03/29/2022) [place] [id number] History of Past illness Narrative* Problem Noted Date Resolved Date Globus sensation 08/16/2019 09/16/2019 documented as of this encounter (statuses as of 04/07/2022) [place] [id number] History of Past illness Narrative* Problem Noted Date Resolved Date Globus sensation 08/16/2019 09/16/2019 documented as of this encounter (statuses as of 04/08/2022) [place] [id number] History of Past illness Narrative* Problem Noted Date Resolved Date Globus sensation 08/16/2019 09/16/2019 documented as of this encounter (statuses as of 04/29/2022) [place] [id number] History of Past illness Narrative* Problem Noted Date Resolved Date Globus sensation 08/16/2019 09/16/2019 documented as of this encounter (statuses as of 05/10/2022) [place] [id number] History of Past illness Narrative* Problem Noted Date Resolved Date Globus sensation 08/16/2019 09/16/2019 documented as of this encounter (statuses as of 05/10/2022) [place] [id number] History of Past illness Narrative* Problem Noted Date Resolved Date Globus sensation 08/16/2019 09/16/2019 documented as of this encounter (statuses as of 05/16/2022) [place] [id number] History of Past illness Narrative* Problem Noted Date Resolved Date Globus sensation 08/16/2019 09/16/2019 documented as of this encounter (statuses as of 06/24/2022) [place] [id number] History of Past illness Narrative* Problem Noted Date Resolved Date Globus sensation 08/16/2019 09/16/2019 documented as of this encounter (statuses as of 07/17/2022) [place] [id number] History of Past illness Narrative* Problem Noted Date Resolved Date Globus sensation 08/16/2019 09/16/2019 documented as of this encounter (statuses as of 08/05/2022) [place] [id number] History of Past illness Narrative* Problem Noted Date Resolved Date Globus sensation 08/16/2019 09/16/2019 documented as of this encounter (statuses as of 09/14/2022) [place] [id number] History of Past illness Narrative* Problem Noted Date Resolved Date Globus sensation 08/16/2019 09/16/2019 documented as of this encounter (statuses as of 10/19/2022) [place] [id number] History of Past illness Narrative* Problem Noted Date Resolved Date Globus sensation 08/16/2019 09/16/2019 documented as of this encounter (statuses as of 11/03/2022) [place] [id number] History of Past illness Narrative* Problem Noted Date Resolved Date Globus sensation 08/16/2019 09/16/2019 documented as of this encounter (statuses as of 12/21/2022) [place] [id number] History of Past illness Narrative* Problem Noted Date Resolved Date Globus sensation 08/16/2019 09/16/2019 documented as of this encounter (statuses as of 01/06/2023) [place] [id number] History of Past illness Narrative* Problem Noted Date Diagnosed Date Resolved Date Globus sensation 08/16/2019 09/16/2019 documented as of this encounter (statuses as of 03/03/2023) [place] [address] History of Past illness Narrative* Problem Noted Date Diagnosed Date Resolved Date Globus sensation 08/16/2019 09/16/2019 documented as of this encounter (statuses as of 03/04/2023) [place] [address] History of Past illness Narrative* Problem Noted Date Diagnosed Date Resolved Date Globus sensation 08/16/2019 09/16/2019 documented as of this encounter (statuses as of 03/04/2023) [address] History of Past illness Narrative* Problem Noted Date Diagnosed Date Resolved Date Globus sensation 08/16/2019 09/16/2019 documented as of this encounter (statuses as of 04/12/2023) [address] History of Past illness Narrative* Problem Noted Date Diagnosed Date Resolved Date Globus sensation 08/16/2019 09/16/2019 documented as of this encounter (statuses as of 04/21/2023) [place] [address] History of Past illness Narrative* Problem Noted Date Diagnosed Date Resolved Date Globus sensation 08/16/2019 09/16/2019 documented as of this encounter (statuses as of 05/05/2023) [address]24-2020 History of Past illness Narrative* Problem Noted Date Diagnosed Date Resolved Date Globus sensation 08/16/2019 09/16/2019 documented as of this encounter (statuses as of 05/28/2023) [address] History of Past illness Narrative* Problem Noted Date Diagnosed Date Resolved Date Globus sensation 08/16/2019 09/16/2019 documented as of this encounter (statuses as of 06/01/2023) [facility] note* Diagnosis SANJAY (generalized anxiety disorder)- Primary Generalized anxiety disorder Panic attack Panic disorder without agoraphobia Seasonal allergic rhinitis, unspecified trigger [facility]* Diagnosis Severe anxiety- Primary Mild depression Depressive disorder, not elsewhere classified documented in this encounter [facility] noteNo assessment information [facility]: [facility] note* Diagnosis Panic disorder without agoraphobia- Primary [facility] Diagnosis Injury of head, initial encounter- Primary Accident caused by farm tractor, initial encounter [facility]* Diagnosis Flank pain- Primary Abdominal pain, unspecified site Acute cystitis with hematuria Acute cystitis Acute pain of left shoulder [facility]* Diagnosis Flank pain Abdominal pain, unspecified site Acute pain of left shoulder [facility]* Diagnosis Acute pain of left shoulder- Primary [facility]* Diagnosis Acute pain of left shoulder [facility]* Diagnosis Acute pain of left shoulder- Primary documented in this encounter [facility] note* Diagnosis Acute pain of left shoulder- Primary Traumatic complete tear of left rotator cuff, initial encounter [facility]* Diagnosis Panic disorder without agoraphobia- Primary [facility]* Diagnosis Panic disorder without agoraphobia- Primary [facility]* Diagnosis Sorethroat- Primary Acute pharyngitis [facility]* Diagnosis Fatty liver- Primary Other chronic nonalcoholic liver disease Encounter for lipid screening for cardiovascular disease Screening for lipoid disorders documented in this encounter [facility] note* Diagnosis Well adult exam- Primary Routine general medical examination at a [facility] care facility LOCKHART (nonalcoholic steatohepatitis) Other chronic nonalcoholic liver disease SANJAY (generalized anxiety disorder) Generalized anxiety disorder Panic attack Panic disorder without agoraphobia Screening for diabetes mellitus Elevated LFTs Other abnormal blood chemistry GERD without esophagitis Esophageal reflux Heat intolerance Unspecified effects of heat and light Candidiasis Candidiasis of unspecified site documented [facility]* Diagnosis Rib pain on left side- Primary Chest pain, unspecified documented [facility]* Diagnosis Atypical chest pain- Primary Other chest pain GERD without esophagitis Esophageal reflux Family history of early CAD Family history of ischemic heart disease documented in this encounter [facility] note* Diagnosis Elevated LFTs Other abnormal blood chemistry [facility]* Diagnosis GERD without esophagitis- Primary Esophageal reflux Encounter for immunization Need for other specified prophylactic vaccination against single bacterial disease [facility]* Diagnosis Exposure to blood- Primary Personal history of contact with and (suspected) exposure to potentially hazardous body fluids documented [facility]* Diagnosis Rib pain on left side Chest pain, unspecified documented [facility]* Diagnosis Sore throat- Primary Acute pharyngitis Acute otitis media, right Unspecified otitis media [facility]* Diagnosis Sore throat- Primary Acute pharyngitis Strep pharyngitis Streptococcal sore throat [facility]* Diagnosis Tonsillitis- Primary Acute tonsillitis Pharyngitis, unspecified etiology documented in this encounter [facility] for referral (narrative)* Diagnostic Procedure Only (Urgent) - Pending Review Specialty Diagnoses / Procedures [facility] To [facility] X[facility] Diagnoses Rib pain on left side Procedures XR RIBS/CHEST 3V AP RIB/OBLS/CXR LEFT RADEX RIBS UNI W/POSTEROANT CH MINIMUM 3 VIEWS Uma Jimenez, STRATEGY ASSOCIATE [address] [place] [id number] Xr Imaging Referral ID Status Reason Start Date Expiration Date Visits Requested Visits Authorized [id number] Pending Review Auto-Generat ed Referral 03/04/2023 04/02/2024 1 1 [facility] for referral (narrative)* Outpatient Procedure (Routine) - Denied Specialty Diagnoses / Procedures Referred By Contac t Referred To Contact [facility] Diagnoses Atypical chest pain Procedures ECG COMPLETE ECG ROUTINE ECG W/LEAST 12 LDS W/I&R Clarence Rodriguez MD [address] [place] [address] [facility] [place] [address] [place] [id number] Referral ID Status Reason Start Date Expiration Date V isits Requested Visits Authorized [id number] Denied Auto-Generate d Referral 04/20/2023 04/19/2024 1 0 [facility] for referral (narrative)* Diagnostic Procedure Only (Routine) - Closed Specialty Diagnoses / Procedures [facility] To [facility] US IMAGING Diagnoses Elevated LFTs Procedures US ABD RIGHT UPPER QUADRANT US ABDOMINAL REAL TIME W/IMAGE LIMITED Caryl Green PA-C [address] [place] [address] [place] [address] Referral ID Status Reason Start Date Expiration Date V isits Requested Visits Authorized [id number] Closed Patient Cleared - True Self-Pay required payment collected 12/13/2022 01/12/2024 1 1 [facility] for referral (narrative)* Diagnostic Procedure Only (Urgent) - Denied Specialty Diagnoses / Procedures Referred By Contac t Referred To Contact XR IMAGING Diagnoses Rib pain on left side Procedures XR RIBS/CHEST 3V AP RIB/OBLS/CXR LEFT RADEX RIBS UNI W/POSTEROANT CH MINIMUM 3 VIEWS Uma Jimenez APRN.STRATEGY ASSOCIATE [address] [place] [id number] [place] [address] Referral ID Status Reason Start Date Expiration Date Visits Re quested Visits Authorized [id number] Denied 03/04/2023 04/02/2024 1 0 [facility] for visit Narrative* Diagnostic Procedure Only (Routine) - Denied Specialty Diagnoses / Procedures Referred By Contac t Referred To Contact XR IMAGING Diagnoses Acute pain of left shoulder Procedures XR SHOULDER GENERAL 3V OR MORE AP/TRUE AP/OTHER LEFT RADEX SHOULDER COMPLETE MINIMUM 2 VIEWS Anuel Mckenna MD [address] [place] [address] Xr Imaging Referral ID Status Reason Start Date Expiration Date V isits Requested Visits Authorized [id number] Denied Auto-Generate d Referral OON/Self Pay Override 04/28/2022 05/28/2023 1 0 [facility] for visit Narrative* Diagnostic Procedure Only (Urgent) - Denied Specialty Diagnoses / Procedures Referred By Contac t Referred To Contact XR IMAGING Diagnoses Rib pain on left side Procedures XR RIBS/CHEST 3V AP RIB/OBLS/CXR LEFT RADEX RIBS UNI W/POSTEROANT CH MINIMUM 3 VIEWS Uma Jimenez APRN.STRATEGY ASSOCIATE [address] [place] [phone] [place] [address] Referral ID Status Reason Start Date Expiration Date Visits Re quested Visits Authorized [id number] Denied 03/04/2023 04/02/2024 1 0 [facility] Advance Directives No Advanced Directives Records FoundDocuments on File Type Date Recorded Patient Authorization Nurse Expl anation Advance Directive(s) 09/17/2019 8:33 AM Advance Directive Response Recorded Date/ Time Living Will No February 13, 2022 8:02pm Power of Cassandra Developer No February 13 8:02pm Advance Directive Response Recorded Date/ Time Living Will No March 15 11:41am Power of Cassandra Developer No March 15 11:41am Advance Directive Response Recorded Date/ Time Living Will No November 13, 2023 6:49pm Power of Cassandra Developer No November 12 6:49pm Chief Complaint and Reason for Visit Chief Complaint lac Chief Complaint lac 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 Chief Complaint lac 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 FLANK PAIN Chief Complaint Other chest pain Other chest pain Chief Complaint wound check Reason for Referral Specialty Diagnoses / Procedures Referred By Mario robbins Referred To Contact CT IMAGING Diagnoses Flank pain Gross hematuria Procedures CT ABD/PEL WO IVCON CT ABD & PELVIS W/O CONTRAST Nae Domínguez, PROGRAMMER ANALYST.STRATEGY ASSOCIATE [address] [place] [address] Ct Imaging Referral ID Status Reason Start Date Expiration Date V isits Requested Visits Authorized [id number] Closed Auto-Generate d Referral 03/22/2022 04/21/2023 1 1 Specialty Diagnoses / Procedures Referred By Mario robbins Referred To Contact [facility] Diagnoses Acute pain of left shoulder Procedures CONSULT TO PHYSICAL THERAPY PHYSICAL THERAPY EVALUATION HIGH COMPLEX 45 MINS Nae Domínguez, PROGRAMMER ANALYST.STRATEGY ASSOCIATE [address] [place] [address] [facility] [address] [place] [address] Referral ID Status Reason Start Date Expiration Date Visits Requested Visits Authorized [id number] Pending Review Auto-Generat ed Referral 03/29/2022 03/29/2023 1 1 Specialty Diagnoses / Procedures Referred By Mario robbins Referred To Contact Orthopedics Diagnoses Acute pain of left shoulder Procedures CONSULT TO ORTHOPAEDICS OFFICE/OUTPATIENT NEW HIGH MDM 60-74 MINUTES Nae Domínguez, PROGRAMMER ANALYST.STRATEGY ASSOCIATE [address] [place] [address] [place] [address] Referral ID Status Reason Start Date Expiration Date V isits Requested Visits Authorized [id number] Denied PCP Requested Referral 04/08/2022 04/08/2023 1 0 Specialty Diagnoses / Procedures Referred By Contac t Referred To Contact MR IMAGING Diagnoses Acute pain of left shoulder Traumatic complete tear of left rotator cuff, initial encounter Procedures MRI SHOULDER WO IVCON LT MRI ANY JT UPPER EXTREMITY W/O CONTRAST MATRL Anuel Mckenna MD [address] [place] [address] Mr Imaging Referral ID Status Reason Start Date Expiration Date Visits Requested Visits Authorized [id number] Closed Auto-Generated Referral Patient cleared - OON Required Payment Collected OON Notification Letter 04/28/2022 05/28/2023 1 1 Specialty Diagnoses / Procedures Referred By Contac t Referred To Contact XR IMAGING Diagnoses Acute pain of left shoulder Procedures XR SHOULDER GENERAL 3V OR MORE AP/TRUE AP/OTHER LEFT RADEX SHOULDER COMPLETE MINIMUM 2 VIEWS Anuel Mckenna MD [address] [place] [address] Xr Imaging Referral ID Status Reason Start Date Expiration Date V isits Requested Visits Authorized [id number] Denied Auto-Generate d Referral OON/Self Pay Override 04/28/2022 05/28/2023 1 0 Summary Purpose Family History No Family History Records Found Additional Source Comments Source Comments (unrecognize d section and content) In the event this informatio n is protected by the Federal Confidentiality of Alcohol and Drug Abuse Patient Records regulations: The Federal rules restrict any use of the information to criminally investigate or prosecute any alcohol or drug abuse patient.[facility] the event this information is protected by the Federal Confidentiality of Alcohol and Drug Abuse Patient Records regulations: The Federal rules restrict any use of the information to criminally investigate or prosecute any alcohol or drug abuse patient.[facility] the event this information is protected by the Federal Confidentiality of Alcohol and Drug Abuse Patient Records regulations: The Federal rules restrict any use of the information to criminally investigate or prosecute any alcohol or drug abuse patient.[facility] the event this information is protected by the Federal Confidentiality of Alcohol and Drug Abuse Patient Records regulations: The Federal rules restrict any use of the information to criminally investigate or prosecute any alcohol or drug abuse patient.[facility] the event this information is protected by the Federal Confidentiality of Alcohol and Drug Abuse Patient Records regulations: The Federal rules restrict any use of the information to criminally investigate or prosecute any alcohol or drug abuse patient.[facility] the event this information is protected by the Federal Confidentiality of Alcohol and Drug Abuse Patient Records regulations: The Federal rules restrict any use of the information to criminally investigate or prosecute any alcohol or drug abuse patient.[facility] the event this information is protected by the Federal Confidentiality of Alcohol and Drug Abuse Patient Records regulations: The Federal rules restrict any use of the information to criminally investigate or prosecute any alcohol or drug abuse patient.[facility] the event this information is protected by the Federal Confidentiality of Alcohol and Drug Abuse Patient Records regulations: The Federal rules restrict any use of the information to criminally investigate or prosecute any alcohol or drug abuse patient.[facility] the event this information is protected by the Federal Confidentiality of Alcohol and Drug Abuse Patient Records regulations: The Federal rules restrict any use of the information to criminally investigate or prosecute any alcohol or drug abuse patient.[facility] the event this information is protected by the Federal Confidentiality of Alcohol and Drug Abuse Patient Records regulations: The Federal rules restrict any use of the information to criminally investigate or prosecute any alcohol or drug abuse patient.[facility] the event this information is protected by the Federal Confidentiality of Alcohol and Drug Abuse Patient Records regulations: The Federal rules restrict any use of the information to criminally investigate or prosecute any alcohol or drug abuse patient.[facility] the event this information is protected by the Federal Confidentiality of Alcohol and Drug Abuse Patient Records regulations: The Federal rules restrict any use of the information to criminally investigate or prosecute any alcohol or drug abuse patient.[facility] the event this information is protected by the Federal Confidentiality of Alcohol and Drug Abuse Patient Records regulations: The Federal rules restrict any use of the information to criminally investigate or prosecute any alcohol or drug abuse patient.[facility] the event this information is protected by the Federal Confidentiality of Alcohol and Drug Abuse Patient Records regulations: The Federal rules restrict any use of the information to criminally investigate or prosecute any alcohol or drug abuse patient.[facility] the event this information is protected by the Federal Confidentiality of Alcohol and Drug Abuse Patient Records regulations: The Federal rules restrict any use of the information to criminally investigate or prosecute any alcohol or drug abuse patient.[facility] the event this information is protected by the Federal Confidentiality of Alcohol and Drug Abuse Patient Records regulations: The Federal rules restrict any use of the information to criminally investigate or prosecute any alcohol or drug abuse patient.[facility] the event this information is protected by the Federal Confidentiality of Alcohol and Drug Abuse Patient Records regulations: The Federal rules restrict any use of the information to criminally investigate or prosecute any alcohol or drug abuse patient.[facility] the event this information is protected by the Federal Confidentiality of Alcohol and Drug Abuse Patient Records regulations: The Federal rules restrict any use of the information to criminally investigate or prosecute any alcohol or drug abuse patient.[facility] the event this information is protected by the Federal Confidentiality of Alcohol and Drug Abuse Patient Records regulations: The Federal rules restrict any use of the information to criminally investigate or prosecute any alcohol or drug abuse patient.[facility] the event this information is protected by the Federal Confidentiality of Alcohol and Drug Abuse Patient Records regulations: The Federal rules restrict any use of the information to criminally investigate or prosecute any alcohol or drug abuse patient.[facility] the event this information is protected by the Federal Confidentiality of Alcohol and Drug Abuse Patient Records regulations: The Federal rules restrict any use of the information to criminally investigate or prosecute any alcohol or drug abuse patient.[facility] the event this information is protected by the Federal Confidentiality of Alcohol and Drug Abuse Patient Records regulations: The Federal rules restrict any use of the information to criminally investigate or prosecute any alcohol or drug abuse patient.[facility] the event this information is protected by the Federal Confidentiality of Alcohol and Drug Abuse Patient Records regulations: The Federal rules restrict any use of the information to criminally investigate or prosecute any alcohol or drug abuse patient.[facility] the event this information is protected by the Federal Confidentiality of Alcohol and Drug Abuse Patient Records regulations: The Federal rules restrict any use of the information to criminally investigate or prosecute any alcohol or drug abuse patient.[facility] the event this information is protected by the Federal Confidentiality of Alcohol and Drug Abuse Patient Records regulations: The Federal rules restrict any use of the information to criminally investigate or prosecute any alcohol or drug abuse patient.[facility] the event this information is protected by the Federal Confidentiality of Alcohol and Drug Abuse Patient Records regulations: The Federal rules restrict any use of the information to criminally investigate or prosecute any alcohol or drug abuse patient.[facility] the event this information is protected by the Federal Confidentiality of Alcohol and Drug Abuse Patient Records regulations: The Federal rules restrict any use of the information to criminally investigate or prosecute any alcohol or drug abuse patient.[facility] the event this information is protected by the Federal Confidentiality of Alcohol and Drug Abuse Patient Records regulations: The Federal rules restrict any use of the information to criminally investigate or prosecute any alcohol or drug abuse patient.[facility] the event this information is protected by the Federal Confidentiality of Alcohol and Drug Abuse Patient Records regulations: The Federal rules restrict any use of the information to criminally investigate or prosecute any alcohol or drug abuse patient.[facility] the event this information is protected by the Federal Confidentiality of Alcohol and Drug Abuse Patient Records regulations: The Federal rules restrict any use of the information to criminally investigate or prosecute any alcohol or drug abuse patient.[facility] the event this information is protected by the Federal Confidentiality of Alcohol and Drug Abuse Patient Records regulations: The Federal rules restrict any use of the information to criminally investigate or prosecute any alcohol or drug abuse patient.[facility] the event this information is protected by the Federal Confidentiality of Alcohol and Drug Abuse Patient Records regulations: The Federal rules restrict any use of the information to criminally investigate or prosecute any alcohol or drug abuse patient.[facility] the event this information is protected by the Federal Confidentiality of Alcohol and Drug Abuse Patient Records regulations: The Federal rules restrict any use of the information to criminally investigate or prosecute any alcohol or drug abuse patient.[facility] the event this information is protected by the Federal Confidentiality of Alcohol and Drug Abuse Patient Records regulations: The Federal rules restrict any use of the information to criminally investigate or prosecute any alcohol or drug abuse patient.[facility] the event this information is protected by the Federal Confidentiality of Alcohol and Drug Abuse Patient Records regulations: The Federal rules restrict any use of the information to criminally investigate or prosecute any alcohol or drug abuse patient.[facility] the event this information is protected by the Federal Confidentiality of Alcohol and Drug Abuse Patient Records regulations: The Federal rules restrict any use of the information to criminally investigate or prosecute any alcohol or drug abuse patient.[facility] the event this information is protected by the Federal Confidentiality of Alcohol and Drug Abuse Patient Records regulations: The Federal rules restrict any use of the information to criminally investigate or prosecute any alcohol or drug abuse patient.[facility] the event this information is protected by the Federal Confidentiality of Alcohol and Drug Abuse Patient Records regulations: The Federal rules restrict any use of the information to criminally investigate or prosecute any alcohol or drug abuse patient.[facility] the event this information is protected by the Federal Confidentiality of Alcohol and Drug Abuse Patient Records regulations: The Federal rules restrict any use of the information to criminally investigate or prosecute any alcohol or drug abuse patient.[facility] the event this information is protected by the Federal Confidentiality of Alcohol and Drug Abuse Patient Records regulations: The Federal rules restrict any use of the information to criminally investigate or prosecute any alcohol or drug abuse patient.[facility] the event this information is protected by the Federal Confidentiality of Alcohol and Drug Abuse Patient Records regulations: The Federal rules restrict any use of the information to criminally investigate or prosecute any alcohol or drug abuse patient.[facility] the event this information is protected by the Federal Confidentiality of Alcohol and Drug Abuse Patient Records regulations: The Federal rules restrict any use of the information to criminally investigate or prosecute any alcohol or drug abuse patient.Uk HealthcareIn the event this information is protected by the Federal Confidentiality of Alcohol and Drug Abuse Patient Records regulations: The Federal rules restrict any use of the information to criminally investigate or prosecute any alcohol or drug abuse patient.Uk HealthcareIn the event this information is protected by the Federal Confidentiality of Alcohol and Drug Abuse Patient Records regulations: The Federal rules restrict any use of the information to criminally investigate or prosecute any alcohol or drug abuse patient.Uk HealthcareIn the event this information is protected by the Federal Confidentiality of Alcohol and Drug Abuse Patient Records regulations: The Federal rules restrict any use of the information to criminally investigate or prosecute any alcohol or drug abuse patient.Uk HealthcareIn the event this information is protected by the Federal Confidentiality of Alcohol and Drug Abuse Patient Records regulations: The Federal rules restrict any use of the information to criminally investigate or prosecute any alcohol or drug abuse patient.Uk HealthcareIn the event this information is protected by the Federal Confidentiality of Alcohol and Drug Abuse Patient Records regulations: The Federal rules restrict any use of the information to criminally investigate or prosecute any alcohol or drug abuse patient.[facility] Reason for Visit (unrecogniz ed section and content) Reason Comments Follow Up Specialty Diagnoses / Procedures Referred By Mario t Referred To Contact FAMILY MEDICINE Diagnoses gerd/chest pain follow up Procedures OFFICE/OUTPATIENT ESTABLISHED MOD MDM 30-39 MIN Clarence Piedra MD [address] [place] [address] [facility] [address] [place] [address] Referral ID Status Reason Start Date Expiration Date Visits Requested Visits Authorized [id number] Closed Financial Clearance Required - OON Payor OON Notification Letter Patient cleared - OON Required Payment Collected 04/20/2023 07/19/2023 1 1 Specialty Diagnoses / Procedures [facility] Referred To Contact ADULT PSYCHIATRY Diagnoses Virtual Procedures Virtual Tayler Gonsalez, PROGRAMMER ANALYST.STRATEGY ASSOCIATE [address] [place] [address] Ps Adult [facility] [address] [place] [address] Referral ID Status Reason Start Date Expiration Date Visits Requested Visits Authorized [id number] Closed Financial Clearance Required - OON Payor OON Notification Letter Patient cleared - OON Required Payment Collected 10/17/2022 1 1 Reason Onset Date Comments Refill Request 12/02/2021 Reason Comments Medication Question Reason Comments Recheck medication Specialty Diagnoses / Procedures [facility] Referred To Contact Family Practice / FAMILY MEDICINE Diagnoses Encounter for follow-up examination after completed treatment for conditions other than malignant neoplasm Renewing medication Procedures OFFICE/OUTPATIENT ESTABLISHED MOD MDM 30-39 MIN MYC OFFICE VISIT Self Caryl Green PA-C [address] [place] [address] Referral ID Status Reason Start Date Expiration Date Visits Requested Visits Authorized [id number] Closed Financial Clearance Required - OON Payor Clearance Not Met - Admin/Materials And Processes Manager/D irector Advise to Postpone/Resched ule or Not Proceed OON Notification Letter 12/15/2021 07/23/2022 1 1 Reason Comments Patient Update Medication Problem Reason Comments Patient Update Reason Comments Consult Initial SW Pt Outr each Reason Comments Consult SW Pt Outreach F/U Reason Comments Patient Question Reason Comments Consult BHSW Calling Reason Comments Consult BHSW Assessment [facility] Specialty Diagnoses / Procedures Referred By Contac t Referred To Contact ADULT PSYCHOLOGY Diagnoses anxiety/ eval Procedures REFERRAL TO [facility] FINANCIAL COUNSELOR PSYCHIATRIC DIAGNOSTIC EVALUATION 1st eval Clarence Rodriguez MD [address] [place] [address] Psyl Adult [place] [address] [address] Referral ID Status Reason Start Date Expiration Date Visits Requested Visits Authorized [id number] Closed Financial Clearance Required - OON Payor OON Notification Letter Patient cleared - OON Required Payment Collected 12/27/2021 03/27/2022 1 1 Reason Comments New Patient Evaluation Specialty Diagnoses / Procedures Referred By Contac t Referred To Contact ADULT PSYCHOLOGY Diagnoses medication Procedures REFERRAL TO [facility] FINANCIAL COUNSELOR EST patient Filippo, Grey, WASTEWATER PROCESS ENGINEER [address] [place] [address] Psyl Adult [facility] [address] [address] Referral ID Status Reason Start Date Expiration Date Visits Requested Visits Authorized [id number] Closed Financial Clearance Required - OON Payor OON Notification Letter Patient Cleared Patient chose to pay or Auth obtained after CCN denied 01/28/2022 04/28/2022 1 1 Reason Comments left shoulder pain Flipped mower over 1 hour ago Reason Comments ER F/U [facility] ER follow up 02/22 3 dx: mower rolled over on him Specialty Diagnoses / Procedures Referred By Contac t Referred To Contact FAMILY MEDICINE Diagnoses ER f/u Procedures [facility] and [facility] [address] [place] [address] Referral ID Status Reason Start Date Expiration Date V isits Requested Visits Authorized [id number] Denied OON/Self Pay Override 03/22/2022 06/20/2022 1 0 Reason Comments Results Reason Comments PT Eval Specialty Diagnoses / Procedures Referred By Contac t Referred To Contact [facility] Diagnoses Acute pain of left shoulder Procedures CONSULT TO PHYSICAL THERAPY PHYSICAL THERAPY EVALUATION HIGH COMPLEX 45 MINS Nae Domínguez APRN.STRATEGY ASSOCIATE [address] [place] [address] [facility] [address] [place] [address] Referral ID Status Reason Start Date Expiration Date V isits Requested Visits Authorized [id number] Closed Financial Clearance Required - OON Payor Clearance not met - patient not scheduled & unable to contact patient Patient Cleared - True Self-Pay required payment collected 03/29/2022 03/29/2023 1 1 Reason Comments Orders Specialty Diagnoses / Procedures Referred By Contac t Referred To Contact MR IMAGING Diagnoses Acute pain of left shoulder Traumatic complete tear of left rotator cuff, initial encounter Procedures MRI SHOULDER WO IVCON LT MRI ANY JT UPPER EXTREMITY W/O CONTRAST MATRL Anuel Mckenna MD [address] [place] [address] Mr Imaging Referral ID Status Reason Start Date Expiration Date Visits Requested Visits Authorized [id number] Closed Auto-Generated Referral Patient cleared - OON Required Payment Collected OON Notification Letter 04/28/2022 05/28/2023 1 1 Reason Comments New Pain Specialty Diagnoses / Procedures Referred By Gillianac t Referred To Contact ORTHOPAEDIC SURGERY Diagnoses Torn Rotator Cuff Procedures Office Visit Anuel Mckenna MD [address] [place] [address] [facility] [address] [place] [address] Referral ID Status Reason Start Date Expiration Date Visits Requested Visits Authorized [id number] Closed Financial Clearance Required - OON Payor OON Notification Letter Patient cleared - OON Required Payment Collected 04/11/2022 07/10/2022 1 1 Reason Onset Date Comments Refill Request 06/24/2022 Specialty Diagnoses / Procedures Referred By Contac t Referred To Contact Psychiatry / ADULT PSYCHIATRY Diagnoses NEW PATIENT Procedures VIDEO PSYC/PSYL NEW Filippo, Grey, MANSOOR [address] [place] [address] Tayler Gonsalez, PROGRAMMER ANALYST.STRATEGY ASSOCIATE [address] [place] [address] Referral ID Status Reason Start Date Expiration Date Visits Requested Visits Authorized [id number] Closed Financial Clearance Required - OON Payor OON Notification Letter Patient cleared - OON Required Payment Collected 02/21/2022 07/17/2022 1 1 Reason Onset Date Comments Refill Request 08/04/2022 Reason Comments Ear Pain L ear pain with ST o n L side x this AM Reason Onset Date Comments Refill Request 11/02/2022 Reason Onset Date Comments Refill Request 01/05/2023 Reason Comments Physical Specialty Diagnoses / Procedures Referred By Contac t Referred To Contact FAMILY MEDICINE Diagnoses TEST, TREAT, CONSULT Procedures REFERRAL TO [facility] FINANCIAL COUNSELOR TEST, TREAT, CONSULT Caryl Green PA-C [address] [place] [address] [facility] [address] [place] [address] Referral ID Status Reason Start Date Expiration Date V isits Requested Visits Authorized [id number] Closed Financial Clearance Required - OON Payor Patient cleared - OON Required Payment Collected 02/15/2023 05/16/2023 1 1 Reason Comments Pain (Shoulder Pain) left shoulder pain into chest x 2 days, comes and goes Reason Comments Pain Specialty Diagnoses / Procedures Referred By Contac t Referred To Contact [facility] DEPARTMENT Diagnoses GERD ISSUES Procedures REFERRAL TO [facility] FINANCIAL COUNSELOR [facility] 4C Clarence Rodriguez MD [address] [place] [address] [place] [address] Referral ID Status Reason Start Date Expiration Date Visits Requested Visits Authorized [id number] Closed Financial Clearance Required - OON Payor OON Notification Letter Patient cleared - OON Required Payment Collected 04/11/2023 07/10/2023 1 1 Reason Comments Radiology US Specialty Diagnoses / Procedures Referred By Contac t Referred To Contact US IMAGING Diagnoses Elevated LFTs Procedures US ABD RIGHT UPPER QUADRANT US ABDOMINAL REAL TIME W/IMAGE LIMITED Caryl Green PA-C [address] [place] [address] [place] [address] Referral ID Status Reason Start Date Expiration Date V isits Requested Visits Authorized [id number] Closed Patient Cleared - True Self-Pay required payment collected 12/13/2022 01/12/2024 1 1 Reason Comments blood exposure Was exposed to stran gers blood Reason Comments Ear Pain Bilateral ear pain a nd ST x 2 days Reason Comments Sore Throat ST, vomiting and osiris ateral ear pain x 1 day Reason Comments Sore Throat Sore throat started a week ago. Care Teams (unrecognized sec tion and content) R Programmer Relationship Specialty Start Date End Date Clarence Rodriguez MD [address] [place] [address] PCP - General Family Practice 10/03/19 R Programmer Relationship Specialty Start Date End Date Clarence Rodriguez MD [address] [place] [address] PCP - General Family Practice 10/03/19 R Programmer Relationship Specialty Start Date End Date Clarence Rodriguez MD [address] [place] [address] PCP - General Family Practice 10/03/19 R Programmer Relationship Specialty Start Date End Date Clarence Rodriguez MD [address] [place] [address] PCP - General Family Practice 10/03/19 R Programmer Relationship Specialty Start Date End Date Clarence Rodriguez MD [address] [place] [address] PCP - General Family Practice 10/03/19 R Programmer Relationship Specialty Start Date End Date Clarence Rodriguez MD [address] [place] [address] PCP - General Family Practice 10/03/19 R Programmer Relationship Specialty Start Date End Date Clarence Rodriguez MD [address] [place] [address] PCP - General Family Practice 10/03/19 R Programmer Relationship Specialty Start Date End Date Clarence Rodriguez MD [address] [facility] [place] [address] PCP - General Family Practice 10/03/19 R Programmer Relationship Specialty Start Date End Date Clarence Rodriguez MD [facility] [place] [address] PCP - General Family Practice 10/03/19 R Programmer Relationship Specialty Start Date End Date Clarence Rodriguez MD [address] [place] [address] PCP - General Family Practice 10/03/19 R Programmer Relationship Specialty Start Date End Date Clarence Rodriguez MD [address] [place] [address] PCP - General Family Practice 10/03/19 R Programmer Relationship Specialty Start Date End Date Clarence Rodriguez MD [address] [place] [address] [place] [address] PCP - General Family Practice 10/03/19 R Programmer Relationship Specialty Start Date End Date Clarence Rodriguez MD [address] [place] [address] [place] [address] PCP - General Family Medicine 10/03/19 R Programmer Relationship Specialty Start Date End Date Clarence Rodriguez MD [address] [place] [address], [place] [address] PCP - General Family Medicine 10/03/19 R Programmer Relationship Specialty Start Date End Date Clarence Rodriguez MD [address] [place] [address] [place] [address] PCP - General Family Medicine 10/03/19 R Programmer Relationship Specialty Start Date End Date Clarence Rodriguez MD [address] [facility] [place] [address] PCP - General Family Medicine 10/03/19 R Programmer Relationship Specialty Start Date End Date Clarence Rodriguez MD [address] [facility] [place] [address] PCP - General Family Medicine 10/03/19 R Programmer Relationship Specialty Start Date End Date Clarence Rodriguez MD [address] [facility] [place] [address] PCP - General Family Medicine 10/03/19 R Programmer Relationship Specialty Start Date End Date Clarence Rodriguez MD [address] [place] [address], [place] [address] PCP - General Family Medicine 10/03/19 R Programmer Relationship Specialty Start Date End Date Clarence Rodriguez MD [address] [place] [address], [place] [address] PCP - General Family Medicine 10/03/19 R Programmer Relationship Specialty Start Date End Date Clarence Rodriguez MD [address] [place] [address], [place] [address] PCP - General Family Medicine 10/03/19 R Programmer Relationship Specialty Start Date End Date Clarence Rodriguez MD [facility] [place] [address] PCP - General Family Medicine 10/03/19 R Programmer Relationship Specialty Start Date End Date Clarence Rodriguez MD [address] [place] [address], [place] [address] PCP - General Family Medicine 10/03/19 R Programmer Relationship Specialty [place] [address] [place] [address], [place] [address] PCP - General Family Medicine 10/03/19 R Programmer Relationship Specialty Start Date End Date Clarence Rodriguez MD [address] [place] [address] PCP - General Family Medicine 10/03/19 R Programmer Relationship Specialty Start Date End Date Clarence Rodriguez MD [address] [place] [address] PCP - General Family Medicine 10/03/19 R Programmer Relationship Specialty Start Date End Date Clarence Rodriguez MD [address] [place] [address] PCP - General Family Medicine 10/03/19 R Programmer Relationship Specialty Start Date End Date Clarence Rodriguez MD [address] [place] [address] PCP - General Family Medicine 10/03/19 R Programmer Relationship Specialty Start Date End Date Clarence Rodriguez MD [address] [place] [address] PCP - General Family Medicine 10/03/19 Team Status: Active Member Role Status Dates Dr. Kaleb Junior MD Family Provider Active SWATI Magaña Primary Care Provider Active Team Status: Active Member Role Status Dates SWATI Magaña Primary Care Provider Active Dr. Clarence Rodriguez MD Referring Provider, Other Prov ider Active Dr. Segun Maciel MD Attending Provider Active Team Status: Inactive Member Role Status Dates SWATI Magaña Primary Care Provider Active Dr. Clarence Rodriguez MD Attending Provider, Referring Provider Active R Programmer Relationship Specialty Start Date End Date Clarence Rodriguez MD [address] [place] [address] PCP - General Family Medicine 10/03/19 R Programmer Relationship Specialty Start Date End Date Clarence Rodriguez MD [address] [place] [address] PCP - General Family Medicine 10/03/19 Team Status: Inactive Member Role Status Dates SWATI Magaña Primary Care Provider Active Dr. Richelle Richards MD Emergency Provider Active R Programmer Relationship Specialty Start Date End Date Clarence Rodriguez MD [address] [place] [address] PCP - General Family Medicine 10/03/19 R Programmer Relationship Specialty Start Date End Date Clarence Rodriguez MD [address] [place] [address] PCP - General Family Medicine 10/03/19 R Programmer Relationship Specialty Start Date End Date Clarence Rodriguez MD [address] [place] [address] PCP - General Family Medicine 10/03/19 Blanca Olivares APRN.STRATEGY ASSOCIATE [address] [place] [address] Inspection Supervisor Family Medicine 06/29/24 Caryl Green PA-C [address] [place] [address] Inspection Supervisor Family Medicine 06/29/24 R Programmer Relationship Specialty Start Date End Date Clarence Rodriguez MD [address] [place] [address] PCP - General Family Medicine 10/03/19 Blanca Olivares APRN.STRATEGY ASSOCIATE [address] [place] [address] [facility] 06/29/24 Caryl Green PA-C [address] [place] [address] [facility] 06/29/24 Goals (unrecognized section and content) Goals may be documented in a n alternate sectionGoals may be documented in an alternate sectionGoals may be documented in an alternate sectionGoals may be documented in an alternate sectionGoals may be documented in an alternate section (unrecognized sect ion and content) No Status Records FoundNo Status Records Found INFORMATION SOURCE (unrecogn ized section and content) DATE CREATED AUTHOR 11/19/2023 [facility] DATE CREATED AUTHOR AUTHOR'S JOSSELYN MCLEOD 08/07/2024 [facility] FOR RECORDS PERTAINING TO PATIENTS WHO ARE OR HAVE BEEN ENROLLED IN A CHEMICAL DEPENDENCY/SUBSTANCEABUSE PROGRAM, SOME INFORMATION MAY BE OMITTED. This clinical summary was aggregated from multiple sources. Caution should be exercised in using it in the provision of clinical care. This summary normalizes information from multiple sources, and as a consequence, information in this document may materially change the coding, format and clinical context of patient data. In addition, data may be omitted in some cases. CLINICAL DECISIONS SHOULD BE BASED ON THE PRIMARY CLINICAL RECORDS. [employer] [facility]. provides no warranty or guarantee of the accuracy or completeness of information in this document.
[2025-02-02] MEDS: Rabies Immune Globulin 150 U/ML 2ml Vial 30 U IM (03:40)
[2025-02-02] MEDS: Rabies Immune Globulin/PF 300 UNIT/ML, 5 ML VIAL 3000 UNIT IM (03:49)
[2025-02-02 03:50] VITALS: BP 121/74; PULSE 81; RESP 16; O2SAT 97
[2025-02-02 04:24] VITALS: BP 125/87; PULSE 81; RESP 16; TEMP 36.6; O2SAT 99
== END 2025-02-02 04:25 | disposition home or self-care (01) ==
PROVIDERS: Emergency Provider Surgery; PCP Physician Assistant; Visit Provider Surgery
DX: S61.051A Open bite of right thumb without damage to nail, initial encounter (principal); W55.51XA Bitten by raccoon, initial encounter; Z23 Encounter for immunization
CPT/HCPCS: 90675; 90715; 99282; 90375

== ENCOUNTER 2025-02-05 13:12 | Outpatient (CLI) | payer OTHER, SELFPAY ==
[2025-02-05 13:12] VITALS: BP 131/91; PULSE 81; RESP 18; TEMP 36.9; O2SAT 99; BMI 41.8
--- OUTSIDE RECORDS SUMMARY | 2025-02-05 23:04 | XMS RPT_ITS | CCD ---
Author Organization [facility] Care Team Providers Care Welfare Director Name Role Phone Clarence Rodriguez MD Primary Care Provider SWATI Hilton Primary Care Provider [phone] Dr. Clarence Rodriguez Referring Provider [phone] Dr. Clarence Rodriguez Other Provider Dr. Segun Maciel Attending Provider Clarence Rodriguez MD Primary Care Provider Clarence Rodriguez MD Primary Care Provider Clarence Rodriguez MD Primary Care Provider Blanca Olivares APRN.CNP Unavailable Caryl Green PA-C Unavailable [phone] CLARENCE RODRIGUEZ Attending Unavailable CLARENCE RODRIGUEZ Primary Care Unavailable CLARENCE RODRIGUEZ Attending Unavailable CLARENCE RODRIGUEZ Primary Care Unavailable CLARENCE RODRIGUEZ Primary Care Unavailable CLARENCE RODRIGUEZ Primary Care Unavailable CLARENCE RODRIGUEZ Primary Care Unavailable Caryl Hilton Primary Care Provider Dr. Jak Bates DO Emergency Provider Jak Bates Attending Caryl Schroeder Primary Care Unavailable Caryl Green Primary Care Unavailable Jak Bates Attending Lucy jack Medications Current Medications Medication Drug Class(es) Dates [...] on above: Take 1 tablet by kiera every 8 hours as needed for pain [...] on above: Take 1 capsule by mo [facility] twice daily for 10 days. amoxicillin 875 [...] above: Take 1 tablet by kiera twice daily. 24 hr fluvoxaMINE maleate 100 mg extended release oral capsule (6 sources) Serotonin Reuptake Inhibitor Start: take 1 capsule by mouth every twenty-four hours at bedtime Fluvoxamine 100 mg capsule,extended release 24hr Active 100 mg PO AT BEDTIME 2025 12:00am Start: 07-22-2023 [facility] daily at bedtime fluvoxaMINE ER (LUVOX CR) 150 mg capsule Take 150 mg by mouth daily at bedtime. 07/22/2023 Active mometasone furoate 1 mg/ml topical cream (2 sources) Corticosteroid Start: 05-31-2023 End: 05-24-2024 mometasone (ELOCON) 0.1 % cream Apply to areas twice a day. On for 4 days and off for 3 days. Repeat as needed. 15 g 1 05/31/2023 05/24/2024 Active Comment on above: Apply to areas twice a day. On for 4 days and off for 3 days. Repeat as needed. propranolol hydrochloride 40 mg oral tablet (20 [...] on above: Take 1 tablet by kiera three times daily as needed. Take 1 tablet by kiera twice daily. Completed/Discontinued Medications Medication Drug Class(es) Dates Sig [...] every 6 hours as needed for pain. cephalexin 500 mg oral capsule (7 sources) Cephalosporin Antibacterial Start: 02-13-2022 End: 2025 take 1 capsule by mouth every six hours Cephalexin 500 MG capsule Discontinued 500 mg PO EVERY 6 HOURS 40 0 February 13, 2022 12:00am 2025 12:22am escitalopram 10 mg oral tablet (8 sources) [...] as needed metroNIDAZOLE 500 mg oral tablet (7 sources) Nitroimidazole Antimicrobial Start: End: take 1 tablet by mouth three times daily Metronidazole 500 MG tablet Discontinued 500 mg PO THREE TIMES A DAY 12 4 0 August 13, 2019 1:00am August 16, 2019 1:00am August 17, 2019 1:08am omeprazole [...] on above: Take 1 capsule by mo [facility] daily before breakfast. 1/2 hr before meal. [...] Start: 04-20-2023 take 1 tablet by kiera twice daily before mealtime pantoprazole DR (PROTONIX) 40 mg tablet Take 1 tablet by mouth twice daily. Take on empty stomach, 1/2 hr before meal. 60 tablet 5 04/20/2023 Active Comment on above: Take 1 tablet by kiera twice daily. Take on empty stomach, 1/2 hr before meal. PARoxetine hydrochloride 40 mg oral tablet (20 sources) Serotonin Reuptake Inhibitor Start: 02-13-2022 End: 2025 Paroxetine Hcl 40 mg tablet Discontinued 1 {tbl} PO DAILY February 13, 2022 12:00am 2025 12:23am Start: 02-13-2022 End: 09-09-2022 take 1 tablet by mouth once daily [...] Take 0.5 tablets by mouth once daily. Potassium Chloride (Klor-Con M20) 20 MEQ Tab.Er.Prt (7 sources) Start: 08-13-2019 End: 08-20-2019 take 1 tablet by mouth twice daily Potassium Chloride (Klor-Con M20) 20 MEQ Tab.Er.Prt Discontinued 20 meq PO TWICE A DAY 14 7 August 13, 2019 1:00am August 19, 2019 1:00am August 20, 2019 1:07am Start: 08-13-2019 End: 08-20-2019 take 1 tablet by mouth twice daily Potassium Chloride (Klor-Con M20) 20 MEQ Tab.Er.Prt Discontinued 20 MEQ PO TWICE A DAY 14 August 13, 2019 1:00am August 20, 2019 1:07am sulfamethoxazole 800 mg / trimethoprim 160 mg oral tablet (12 sources) Dihydrofolate Reductase Inhibitor Antibacterial, Sulfonamide Antimicrobial Start: 02-13-2022 End: 2025 Sulfamethoxazole-Trimethopri m 1 TABLET tablet Discontinued 1 {tbl} PO TWICE A DAY February 13, 2022 12:00am 2025 12:22am Start: 02-13-2022 take 1 tablet by kiera th twice daily Sulfamethoxazole-Trimethoprim Active 1 T ABLET PO TWICE A DAY February 13, 2022 12:00am Comment on above: Take 1 tablet by kiera th twice daily for 10 days. 24 hr venlafaxine 150 mg extended release oral capsule (11 sources) Serotonin and Norepinephrine Reuptake Inhibitor Start: 11-04-19 End: 03-01-20 take 1 capsule by mouth once daily [...] anxiety disorder] Onset: 08-16-2019 08-16-2019 Chronic Asthma (7 sources) Asthma; Translations: [Unspecified asthma, uncomplicated] 07-19-2019 Chronic Calculus of urinary tract (20 sources) Ureteric colic; Translations: [Unspecified renal colic] 11-22-2020 Episodic Chronic obstructive pulmonary disease and bronchiectasis (7 sources) Purulent bronchitis; Translations: [Mucopurulent chronic bronchitis] 07-19-2019 Chronic E Codes: Cut/pierceb (6 sources) 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; Translations: [Contact with powered videotape sales representative, initial encounter] 03-23-2022 Episodic E Codes: Machinery (1 source) Contact with unspecified agricultural machinery, initial encounter; Translations: [Accidents caused by agricultural machines] Episodic E Codes: Natural/environment (2 sources) Mammal bite wound; Translations: [Bitten by raccoon, initial encounter] 2025 Episodic Esophageal disorders (15 sources) Gastroesophageal reflux disease without esophagitis; Translations: [Gastro-esophageal reflux disease without esophagitis] Onset: 03-01-2023 03-01-2023 Chronic Fluid and electrolyte disorders (7 sources) Dehydration; Translations: [Dehydration] 08-12-2019 Episodic Hepatitis (13 sources) Nonalcoholic steatohepatitis; Translations: [Nonalcoholic steatohepatitis (LOCKHART)] Onset: 03-01-2023 03-01-2023 Chronic Mood disorders (1 source) Mild depression; Translations: [Mild depression] Chronic Mycoses (1 source) Candidiasis; Translations: [Candidiasis, unspecified] 03-01-2023 Episodic Noninfectious gastroenteritis (7 sources) Colitis; Translations: [Noninfective gastroenteritis and colitis, unspecified] 08-10-2019 Episodic Nonspecific chest pain (1 source) Atypical chest pain; Translations: [Other chest pain] 04-20-2023 Episodic Open wounds of extremities (7 sources) Laceration of left middle finger; Translations: [...] elsewhere classified] Chronic Other lower respiratory disease (7 sources) Hemoptysis; Translations: [Hemoptysis] 08-13-2019 Episodic Other lower respiratory disease (2 sources) Rib pain; Translations: [Pleurodynia] 03-04-2023 Episodic Other nervous system disorders (7 sources) Dysphasia; Translations: [Dysphasia] 08-12-2019 Episodic Other [...] [Other general symptoms and signs] 03-01-2023 Episodic Residual codes; unclassified (7 sources) Contact with and (suspected) exposure to potentially hazardous body fluids; Translations: [Exposure to blood] Onset: 11-14-2023 11-13-2023 Episodic Sprains and strains (1 source) Traumatic rupture of rotator cuff; Translations: [Strain of muscle(s) and tendon(s) of the rotator cuff of left shoulder, initial encounter] Episodic Superficial injury; contusion (20 sources) Contusion of chest; Translations: [Contusion of unspecified front wall of thorax, initial encounter] 03-23-2022 Episodic Unclassified (7 sources) No history of clinical finding in subject; Translations: [No significant past medical history] 07-18-2019 Urinary tract infections (1 source) Acute cystitis; Translations: [Acute cystitis with hematuria] Episodic Past or Other Problems Problem Classification Problem Date Documented Da te Episodic/Chronic Other non-traumatic joint disorders (20 sources) Shoulder [...] the circulatory system] Onset: 04-20-2023 04-20-2023 Episodic Results Test Name Value Interpretation Reference Range Facility Emergency Department Summary on 2025 Emergency Department Summary [facility] Medical Records Department [address] [place] [address] Emergency Department Summary 02/02/25 MR#: [id number] Acct: [id number] Name: ALDAIR YEPEZ Rep #: [id number] : 1995 30 From: Jak Bates DO PCP: SWATI Zhao Status:DEP ER Location: ED HPI History of Present Illness Chief Complaint: Bite Narrative Narrative: Chief complaint and HPI: Raccoon bite to the right thumb. 30-year-old male with past medical history of anxiety presents for evaluation of bite to the right thumb. Patient states there was a raccoon trapped in his dumpster in which he helped out. States he was bit on his right thumb. Not immunocompromised. He never received the rabies vaccine. Denies any numbness or tingling. Denies bite elsewhere. Review of systems: See HPI Medications: As listed on the chart Allergies: As listed on the chart PFSH: Per chart Vital signs: As listed on the chart. Reviewed. 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, radial pulse +2 Skin: Warm, dry Neuro: Alert, oriented, grossly intact, sensation intact Psych: Cooperative, appropriate mood and affect [facility] Medical History Anxiety Chewing tobacco use Hx of throat culture Home Medications ???Medication ???Instructions ???Recorded ???Last Taken ???Type fluvoxamine 100 mg 100 mg PO QHS 02/02/25 Unknown His tory capsule,extended release 24 hr Allergy/AdvReac Type Severity Reaction Status Date / Time No Known Allergies Allergy Verified 02/01/25 23:52 Surgical History History of esophagogastroduodenoscopy (EGD) History of hand surgery Social History Smoking Status: Never smoker EXAM Physical Exam Const Vital Signs: 02/01/25 23:51 02/02/25 03:50 02/02/25 04:24 Temperature 98.7 F 97.8 F Temperature Source Oral Pulse Rate 81 81 81 Respiratory Rate 16 16 16 Blood Pressure 156/104 H 121/74 H 125/87 H Blood Pressure Mean 121 89 99 Pulse Ox 100 97 99 Oxygen Delivery Method Room Air MDM MDM MDM Narrative Medical decision making narrative: 30 year-old male with past medical history of anxiety presents for evaluation of raccoon bite to the right thumb. Not immunocompromise. Have never received rabies vaccine. See physical exam findings. Patient will need rabies prophylaxis. Wound was cleaned. I injected rabies immunoglobulin around the bite. He tolerated this well. The rest of the immunoglobulin was injected via nursing. Patient received the rabies vaccine as well as tetanus. He was told in the future to stay away from raccoons. Patient will need recurrent vaccines at day 3, 7, 14. He confirmed understand the plan. Patient for discharge home. Impression: 1. Raccoon bite to the right thumb 2. Rabies prophylaxis Discharge Plan Triage Chief Complaint: Bite ED Provider: Jak Bates Dx/Rx/DC Orders Clinical Impression: Bitten by raccoon Instructions: Rabies Immune Globulin, Human Injection 150 units/mL, Understanding Rabies, Rabies Vaccine, ED Animal Bite (General) Prescriptions: No Action fluvoxamine 100 mg capsule,extended release 24hr 100 mg PO QHS Primary Care Provider: Caryl Green Referrals: Caryl Green PA [Primary Care Provider] - 3-5 Days Activity Restrictions/Additional Instructions: Please stay away from raccoons. Follow-up with your primary care physician. You received your rabies immunoglobulin and vaccine here in the emergency department. You need to have recurrent rabies vaccines on day 3, day 7, day 14 from when you were bit. Print Language: Italian Disposition Disposition: Home, Self Care Discharge Date/Time: 02/02/25 04:25 What to do if you have Problems For any increased pain, shortness of breath, bleeding, nausea or vomiting, chest pain, or any unexpected problems, contact your Primary Care Provider. Call [facility] ([phone]) or report to the closest Emergency Room. Call 911 if necessary. 02/02/25 [id number] Cosigner Signature (if applicable): CC: SWATI Zhao Signed Normal [facility] CNOVon 08-02-2024 CNOV Office Visit (FAMPWS ) ALDAIR YEPEZ ([id number]) 1995 M Date Time Provider Department 08/02/24 10:20 AM [facility] During your visit today, we recorded the [...] Relation Age of Onset Heart Maternal Grandfather SD Hypertension Mother None Father Heart Maternal Uncle [...] Signed Prescri (more content not included)... Normal [facility] CNOVon 07-08-2024 CNOV Office Visit (WSTR ) ALDAIR YEPEZ ([id number]) 1995 M Date Time Provider Department 07/08/24 7:30 AM CLARENCE GILES [facility] During your visit today, we recorded the following information about you: Temperature Pulse Respiration Blood pressure 98.8 degrees 90/minute 16/minute 108/64 Weight 133.9 kg Clarence Giles APRN.CNP 07/08/2024 8:02 AM Signed Subjective HPI Nontoxic-appearing [...] Relation Age of Onset Heart Maternal Grandfather SD Hypertension Mother None Father Heart Maternal Uncle [...] He is (more content not included)... Normal [facility] STREP A MOLECULAR (POC)on Interpretation and review of laboratory results Abnormal [facility] Procedural Control Valid [facility] Parris A (POCT) Positive Abnormal Negative [facility] CNOVon 05-29-2024 CNOV Office Visit (UCWSTR ) ALDAIR YEPEZ ([id number]) 1995 M Date Time Provider Department 05/29/24 2:45 PM CASE GARRETT [facility] During your visit today, we recorded the following information about you: Temperature Pulse Respiration Blood pressure 97.8 degrees 80/minute 16/minute 112/78 Weight 133.9 kg Case Garrett APRN.FULFILLMENT ASSOCIATE 05/29/2024 3:04 PM Signed This note was created using Subimage. Subjective Aldair Yepez is a 29 year [...] Date Reviewed: 05/29/2024 Reviewed by: Case Garrett APRN.FULFILLMENT ASSOCIATE - Fully Assessed Reason for Visit: Ear Pain [817] Cmt: Bilateral ear pain and ST x 2 days Primary Visit Diagnosis:Sore throat [J02.9] Other Visit Diagnosis:Acute otitis media, right [H66.91] Order(s):STREP A MOLECULAR (POC) [3341635] Order #: [id number]. #:[id number] amoxicillin (AMOXIL) 875 mg tabletTake 1 [...] Status:Closed by CASE GARRETT on 05/29/24 Normal [facility] STREP A MOLECULAR (POC)on Procedural Control Valid [facility] Strep A (POCT) Negative Negative [facility] CNOVon 11-13-2023 CNOV Office Visit (UCWSTR ) ALDAIR YEPEZ ([id number]) 1995 M Date Time Provider Department 11/13/23 6:00 PM ZULEYMA ALDANA [facility] During your visit today, we recorded the following information about you: Temperature Pulse Respiration Blood pressure 98 degrees 77/minute 21/minute 124/68 Weight 134.1 kg Zuleyma Aldana APRN.FULFILLMENT ASSOCIATE 11/13/2023 6:24 PM Signed Subjective HPI [...] Relation Age of Onset Heart Maternal Grandfather SD Hypertension Mother None Father Heart Maternal Uncle [...] go to ER as advised. Zuleyma Aldana APRN.FULFILLMENT ASSOCIATE Allergies As of Date: 11/13/2023 (No [...] LOCKHART (nonalcoholic (more content not included)... Normal [facility] CNOVon 08-09-2023 CNOV Office Visit (FAMPWS ) ALDAIR YEPEZ ([id number]) 1995 M Date Time Provider Department 08/09/23 10:40 AM CLARENCE RODRIGUEZPWS During your visit today, we recorded the [...] and a maternal grandfather who of a SD in either his 40-50's. Past medical history, [...] Relation Age of Onset Heart Maternal Grandfather SD Hypertension Mother None Father Heart Maternal Uncle [...] distress, well-hydrated (more content not included)... Normal [facility] XR RIBS/CHEST 3V AP RIB/OBLS /CXR LEFTon 03-04-2023 [facility] XR Ribs - left Views and Anai st PAon 03-04-2023 IMPRESSION: No evide nce of acute left rib fracture. Checking Clerk: RICARDO Transcribe Date/Time: Mar 04 2023 10:43A Dictated by : ELINA TORRES MD This examination was interpreted and the report reviewed and electronically signed by: ELINA TORRES MD on Mar 04 2023 10:45AM [facility] DIVISION OF RADIOLOGY * * [...] lungs appear normal. DIVISION OF RADIOLOGY Provider, [facility] - 03/04/2023 * * *Final Report* * [...] No evidence of acute left rib fracture. Checking Clerk: RICARDO Transcribe Date/Time: Mar 04 2023 10:43A Dictated by : ELINA TORRES MD This examination was interpreted and the report reviewed and electronically signed by: ELINA TORRES MD on Mar 04 2023 10:45AM [facility] Radiology Study observation (narrative) [facility] XR Ribs - left Views and Anai st PAOrdered By: Ccf Provider on 03-04-2023 [facility] HbA1c (Bld)on 03-02-2023 Average glucose Estimated from glycated hemoglobin (Bld) [Mass/Vol] 108 mg/dL [facility] HbA1c (Bld) [Mass fraction] 5.4 % 4.3 - 5.6 % [facility] Hepatic function 2000 panelo n 03-02-2023 Albumin [Mass/Vol] 4.3 g/dL 3.9 - 4.9 g/dL [facility] ALP [Catalytic activity/Vol] 71 U/L 38 - 113 U/L [facility] ALT [Catalytic activity/Vol] 73 U/L High 10 - 54 [facility] AST [Catalytic activity/Vol] 51 U/L High 14 - 40 U/L [facility] Bilirubin [Mass/Vol] 0.4 mg/dL 0.2 - 1.3 mg/dL [facility] Bilirubin.conjuga mary alice [Mass/Vol] <0.2 mg/dL [facility] Protein [Mass/Vol] 6.8 g/dL 6.3 - 8.0 g/dL [facility] LIPID PANEL, NONFASTINGon Cholesterol [Mass/Vol] 171 mg/dL <200 mg/dL [facility] HDL Cholesterol, Nonfasting 39 mg/dL Low >39 mg/dL [facility] LDL Cholesterol, Nonfasting 103 mg/dL High <100 mg/dL [facility] LDL/HDL Ratio, Nonfasting 2.64 mg/dL High <2.54 mg/dL [facility] Non HDL Cholesterol, Nonfasting 132 mg/dL High <130 mg/dL [facility] Total Chol/HDL Ratio, Nonfasting 4.38 mg/dL <5.10 mg/dL [facility] Triglycerides, Nonfasting 144 mg/dL <150 mg/dL [facility] VLDL Cholesterol, Nonfasting 29 mg/dL <30 mg/dL [facility] TSH BLDon 03-02-2023 TSH Qn 2.130 m[IU]/L 0.270 - 4.200 mIU/L [facility] CBC W Auto Differential pane l (Bld)on 03-01-2023 Basophils (Bld) [#/Vol] 0.08 10*3/uL <0.11 k/uL [facility] Basophils/100 WBC (Bld) 1.0 % [facility] Differential cell count method Nom (Bld) Auto [facility] Eosinophils (Bld) [#/Vol] 0.33 10*3/uL <0.46 k/uL [facility] Eosinophils/100 WBC (Bld) 4.3 % [facility] Erythrocyte distribution width (RBC) [Ratio] 13.7 % 11.5 - 15.0 % [facility] Hematocrit (Bld) [Volume fraction] 46.8 % 39.0 - 51.0 % [facility] Hemoglobin (Bld) [Mass/Vol] 15.3 g/dL 13.0 - 17.0 g/dL [facility] Immature granulocytes (Bld) [#/Vol] <0.10 k/uL [facility] Immature granulocytes/100 WBC (Bld) 0.3 % [facility] Lymphocytes (Bld) [#/Vol] 2.17 10*3/uL 1.00 - 4.00 k/uL [facility] Lymphocytes/100 WBC (Bld) 28.1 % [facility] MCH (RBC) [Entitic mass] 28.0 pg 26.0 - 34.0 pg [facility] MCHC (RBC) [Mass/Vol] 32.7 g/dL 30.5 - 36.0 g/dL [facility] MCV (RBC) [Entitic vol] 85.7 fL 80.0 - 100.0 fL [facility] Monocytes (Bld) [#/Vol] 0.76 10*3/uL <0.87 k/uL [facility] Monocytes/100 WBC (Bld) 9.8 % [facility] Neutrophils (Bld) [#/Vol] 4.37 10*3/uL 1.45 - 7.50 k/uL [facility] Neutrophils/100 WBC (Bld) 56.5 % [facility] Nucleated RBC (Bld) [#/Vol] <0.01 k/uL [facility] Nucleated RBC/100 WBC (Bld) [Ratio] 0.0 /100 WBC [facility] Platelet mean volume (Bld) [Entitic vol] 11.4 fL 9.0 - 12.7 fL [facility] Platelets (Bld) [#/Vol] 247 10*3/uL 150 - 400 k/uL [facility] RBC (Bld) [#/Vol] 5.46 10*6/uL 4.20 - 6.0 0 m/uL [facility] WBC (Bld) [#/Vol] 7.73 10*3/uL 3.70 - 11. 00 k/uL [facility] US ABD RIGHT UPPER QUADRANTo n 12-20-2022 [facility] STREP A MOLECULAR (POC)on Procedural Control Valid [facility] Strep A (POCT) Positive Abnormal Negative [facility] No Panel Informationon 05-09 [facility] XR SHOULDER GENERAL 3V OR MO RE AP/TRUE AP/OTHER LEFTon 04-28-2022 [facility] Absolute lymphocyte counton 03-22-2022 Lymphocytes Auto (Unsp spec) [#/Vol] 1.76 10*3/uL 0.83-4.[address] [facility] Work Phone: Basophil percentageon 2021 Basophils/100 WBC (Bld) 0.6 % 0-[address] [facility] Work Phone: Bilirubin [Mass/Vol] 0.40 mg/dL 0.20-1.[address] [facility] Work Phone: Comment on above: For patients on eltr ombopag therapy, use of Dimension [place] TBIL is not recommended. Chloride [Moles/Vol] 105 mmol/L 98-[address] [facility] Work Phone: Eosinophils/100 WBC (Bld) 8.4 % 0-[address] [facility] Work Phone: Glucose [Mass/Vol] 94 mg/dL 74-[address] [facility] Work Phone: Neutrophils (Bld) [#/Vol] 5.9 10*3/uL 2.0-7.[address] [facility] Work Phone: Neutrophils/100 WBC (Bld) 61.0 % 47-[address] [facility] Work Phone: Potassium [Moles/Vol] 4.2 mmol/L 3.5-5.[address] [facility] Work Phone: Protein [Mass/Vol] 7.8 g/dL 6.4-8.[address] [facility] Work Phone: [phone] Sodium [Moles/Vol] 140 mmol/L 136-[address] [facility] Work Phone: [phone] WBC (Bld) [#/Vol] 9.6 10*3/uL 4.4-11.0 [facility] Work Phone: Blood erythrocytes count (nu mber/volume)on 03-22-2022 RBC (Bld) [#/Vol] 4.89 10*6/uL 4.6-6.2 [facility] Work Phone: [phone] Blood hemoglobin measurement (mass/volume)on 03-22-2022 Hemoglobin (Bld) [Mass/Vol] 14.5 g/dL 13.0-16.[address] [facility] Work Phone: [phone] Blood lymphocytes/100 leukoc yteson 03-22-2022 Lymphocytes/100 WBC (Bld) 18.3 % 19-[address] [facility] Work Phone: [phone] Blood monocytes/100 leukocyt eson 03-22-2022 Monocytes/100 WBC (Bld) 11.3 % 0-[address] [facility] Work Phone: [phone] Blood platelet mean volumeon 03-22-2022 Platelet mean volume (Bld) [Entitic vol] 10.2 fL 6.2-12.[address] [facility] Work Phone: [phone] Determination of erythrocyte mean corpuscular volume (MCV)on 03-22-2022 MCV (RBC) [Entitic vol] 90.6 fL 80-[address] [facility] Work Phone: [phone] Hematocrit Auto (Bld) [Volum e fraction]on 03-22-2022 Hematocrit (Bld) [Volume fraction] 44.3 % 40-[address] [facility] Work Phone: [phone] Laboratory - Chemistry and C hemistry - challengeon 03-22-2022 ALP [Catalytic activity/Vol] 96 U/L 45-[address] [facility] Work Phone: ALT [Catalytic activity/Vol] 77 U/L 16-[address] [facility] [facility] [facility] Work Phone: [phone] CO2 [Moles/Vol] 28.0 mmol/L 21.0-32.[address] [facility] Work Phone: [phone] Globulin (S) [Mass/Vol] 4.2 g/dL 2.2-4.[address] [facility] Work Phone: [phone] Urea nitrogen/Creatini ne [Mass ratio] 12.6 mg/mg 10-[address] [facility] Work Phone: [phone] Laboratory - Hematology and Cell countson 03-22-2022 Erythrocyte distribution width (RBC) [Entitic vol] 45.1 fL 35.1-43.[address] [facility] Work Phone: [phone] Erythrocyte distribution width (RBC) [Ratio] 13.5 % 11.6-14.[address] [facility] Work Phone: [phone] Immature granulocytes/100 WBC (Bld) 0.400 % 0.0-0.[address] [facility] Work Phone: [phone] Comment on above: IG% - Immature Granu locytes (promyelocytes, myelocytes and metamyelocytes) > 1% indicates that a LEFT SHIFT is Present. MCH (RBC) [Entitic mass] 29.7 pg 27.0-32.[address] [facility] Work Phone: [phone] Nucleated RBC/100 WBC (Bld) [Ratio] 0 % 0-[address] [facility] Work Phone: [phone] MCHC Auto (RBC) [Mass/Vol]on 03-22-2022 MCHC (RBC) [Mass/Vol] 32.7 g/dL 32-[address] [facility] Work Phone: [phone] No Panel Informationon 03-22 Estimated GFR (MDRD) Amer 111 mL/min >[address] [facility] Work Phone: [phone] Comment on above: GFR Calc Estimated GFR (MDRD) Non-Af Amer 92 mL/min >[address] [facility] Work Phone: [phone] Comment on above: Non- GFR Calc Platelets bldon 03-22-2022 Platelets (Bld) [#/Vol] 262 10*3/uL 150-[address] [facility] Work Phone: [phone] Serum or plasma albumin benigno urement (mass/volume)on 03-22-2022 Albumin [Mass/Vol] 3.6 g/dL 3.2-5.[address] [facility] Work Phone: [phone] Serum or plasma albumin/glob ulin mass ratioon 03-22-2022 Albumin/Globulin [Mass ratio] 0.9 {ratio} 0.9-2.[address] [facility] Work Phone: [phone] Serum or plasma calcium benigno urement (mass/volume)on 03-22-2022 Calcium [Mass/Vol] 9.0 mg/dL 8.5-10.[address] [facility] Work Phone: [phone] Serum or plasma creatinine m easurement (mass/volume)on 03-22-2022 Creatinine [Mass/Vol] 1.03 mg/dL 0.70-1.[address] [facility] Work Phone: Comment on above: The validity of the calculated GFR & GFRAA in patients over 70 years has not been determined. Clinical correlation is essential. Serum or plasma urea nitroge n measurement (mass/volume)on 03-22-2022 Urea nitrogen [Mass/Vol] 13 mg/dL 7-[address] [facility] Work Phone: [phone] Thin prep Papanicolaou smear with manual screeningon 03-22-2022 Thin prep Papanicolaou smear with manual screening 38 U/L 15-[address] [facility] Work Phone: [phone] Thin prep Papanicolaou smear with manual screening 7 5-[address] [facility] Work Phone: [phone] UA DIP, URINE (POC)on 2021 BILIRUBIN UA (POCT) Negative [facility] COLOR UA (POCT) Kelly [facility] GLUCOSE UA (POCT) Negative Negative mg/dL [facility] HEMOGLOBIN/BLOOD UA (POCT) Large Abnormal Negative [facility] KETONE UA (POCT) Negative Negative mg/dL [facility] LEUKOCYTES UA (POCT) Large Abnormal Negative [facility] NITRITE UA (POCT) Positive Abnormal Negative [facility] PH UA (POCT) 5.5 4.5 - 8.0 [facility] Protein Ql (U) 100 mg/dL Abnormal Negative mg/dL [facility] SPECIFIC GRAVITY UA (POCT) >=1.030 1.005 - 1.030 [facility] UROBILINOGEN UA (POCT) 0.2 E.U./dL Normal E.U./dL [facility] Vital Signs Date Time Vital Sign Value Performing Clinician Facility 02-05-2025 14:01040 Body weight 147.55 kg Caryl LONGORIA Work Phone: [phone] [place] [address] 02-05-2025 13:120400 Body height 187.96 cm Caryl LONGORIA Work Phone: [phone] [place] [address] 02-05-2025 13:12-0400 Body mass index (BMI) [Ratio] 41.8 kg/m2 Caryl LONGORIA Work Phone: [phone] [address] [place] [address] 02-05-2025 13:12-0400 Body temperature 98.4 [degF] Caryl Green PA Work Phone: [phone])[phone] [place] [address] 02-05-2025 13:12-0400 Diastolic blood pressure 91 mm[Hg] Caryl LONGORIA Work Phone: [phone] [place] [address] 02-05-2025 13:12-0400 Heart rate 81 /min Caryl LONGORIA Work Phone: [phone])267-905304 [place] [address] 02-05-2025 13:12-0400 Respiratory rate 18 /min Caryl Green PA Work Phone: [phone] [place] [address] 02-05-2025 13:12-0400 SaO2% (BldA) [Mass fraction] 99 % Caryl LONGORIA Work Phone: [phone] [place] [address] 02-05-2025 13:12-0400 Systolic blood pressure 131 mm[Hg] Caryl Green PA Work Phone: [phone])443-203504 [place] [address] 2025 04:24-0400 Body temperature 97.8 [degF] Caryl Green PA Work Phone: [phone])[phone] [place] [address] 2025 04:24-0400 Diastolic blood pressure 87 mm[Hg] Caryl Green PA Work Phone: [phone])[phone] [address] [place] [address] 2025 04:24-0400 Heart rate 81 /min Caryl Green PA Work Phone: [phone] [address] [place] [address] 2025 04:24-0400 Respiratory rate 16 /min Caryl Green PA Work Phone: [phone])354-890318 [address] [place] [address] 2025 04:24-0400 SaO2% (BldA) [Mass fraction] 99 % Caryl Green PA Work Phone: [phone])[phone] [address] [place] [address] 2025 04:24-0400 Systolic blood pressure 125 mm[Hg] Crayl Green PA Work Phone: [phone] [address] [place] [address] 02-01-2025 23:51-0400 Body height 187.96 cm Caryl Green PA Work Phone: [phone] [address] [place] [address] 02-01-2025 23:51-0400 Body mass index (BMI) [Ratio] 42.8 kg/m2 Caryl Green PA Work Phone: [phone])[phone] [address] [place] [address] 02-01-2025 23:51-0400 Body weight 151.45 kg Caryl Green PA Work Phone: [phone] [address] [place] [address] 08-02-2024 10:25-0500 Body mass index (BMI) [Ratio] 37.59 kg/m2 Clarence Rodriguez MD Work Phone: [facility] 08-02-2024 10:25-0500 Body temperature 98.49 [degF] Clarence Rodriguez MD Work Phone: [facility] 08-02-2024 10:25-0500 Body weight 134.26 kg Clarence Rodriguez MD Work Phone: [facility] 08-02-2024 10:25-0500 Diastolic blood pressure 90 mm[Hg] Clarence Rodriguez MD Work Phone: [facility] 08-02-2024 10:25-0500 Heart rate 80 /min Clarence Rodriguez MD Work Phone: [facility] 08-02-2024 10:25-0500 Respiratory rate 18 /min Clarence Rodriguez MD Work Phone: [facility] 08-02-2024 10:25-0500 SaO2% (BldA) [Mass fraction] 97 % Clarence Rodrgiuez MD Work Phone: [facility] 08-02-2024 10:25-0500 Systolic blood pressure 118 mm[Hg] Clarence Rodriguez MD Work Phone: [facility] 07-08-2024 07:33-0500 Body mass index (BMI) [Ratio] 37.48 kg/m2 Clarence Giles APPLICATION PACKAGER.FULFILLMENT ASSOCIATE Work Phone: [facility] 07-08-2024 07:33-0500 Body temperature 98.8 [degF] Clarence Giles APPLICATION PACKAGER.FULFILLMENT ASSOCIATE Work Phone: [facility] 07-08-2024 07:33-0500 Body weight 133.87 kg Clarence Giles APPLICATION PACKAGER.FULFILLMENT ASSOCIATE Work Phone: [facility] 07-08-2024 07:33-0500 Diastolic blood pressure 64 mm[Hg] Clarence Giles APPLICATION PACKAGER.FULFILLMENT ASSOCIATE Work Phone: [facility] 07-08-2024 07:33-0500 Heart rate 90 /min Clarence Pendchristy APPLICATION PACKAGER.FULFILLMENT ASSOCIATE Work Phone: [facility] 07-08-2024 07:33-0500 Respiratory rate 16 /min Clarence Gabylevarsha APPLICATION PACKAGER.FULFILLMENT ASSOCIATE Work Phone: [facility] 07-08-2024 07:33-0500 SaO2% (BldA) [Mass fraction] 97 % Clarence Giles APPLICATION PACKAGER.FULFILLMENT ASSOCIATE Work Phone: [facility] 07-08-2024 07:33-0500 Systolic blood pressure 108 mm[Hg] Clarence Griffinlevarsha APPLICATION PACKAGER.FULFILLMENT ASSOCIATE Work Phone: [facility] 05-29-2024 14:46-0500 Body mass index (BMI) [Ratio] 37.49 kg/m2 Case Moomaw APPLICATION PACKAGER.FULFILLMENT ASSOCIATE Work Phone: [facility] 05-29-2024 14:46-0500 Body temperature 97.81 [degF] Case Moomaw APPLICATION PACKAGER.FULFILLMENT ASSOCIATE Work Phone: [facility] 05-29-2024 14:46-0500 Body weight 133.9 kg Case Moomaw APPLICATION PACKAGER.FULFILLMENT ASSOCIATE Work Phone: [facility] 05-29-2024 14:46-0500 Diastolic blood pressure 78 mm[Hg] Case Moomaw APPLICATION PACKAGER.FULFILLMENT ASSOCIATE Work Phone: [facility] 05-29-2024 14:46-0500 Heart rate 80 /min Case Moomaw APPLICATION PACKAGER.FULFILLMENT ASSOCIATE Work Phone: [facility] 05-29-2024 14:46-0500 Respiratory rate 16 /min Case Moomaw APPLICATION PACKAGER.FULFILLMENT ASSOCIATE Work Phone: [facility] 05-29-2024 14:46-0500 SaO2% (BldA) [Mass fraction] 97 % Case Moomaw APPLICATION PACKAGER.FULFILLMENT ASSOCIATE Work Phone: [facility] 05-29-2024 14:46-0500 Systolic blood pressure 112 mm[Hg] Case Moomaw APPLICATION PACKAGER.FULFILLMENT ASSOCIATE Work Phone: [facility] 11-13-2023 19:16-0400 Body temperature 97.9 [degF] [facility] 11-13-2023 19:16-0400 Diastolic blood pressure 74 mm[Hg] [facility] 11-13-2023 19:16-0400 Heart rate 80 /min [facility] 11-13-2023 19:16-0400 Respiratory rate 16 /min [facility] 11-13-2023 19:16-0400 SaO2% (BldA) [Mass fraction] 97 % [facility] 11-13-2023 19:16-0400 Systolic blood pressure 130 mm[Hg] [facility] 11-13-2023 18:28-0400 Body height 188.01 cm [facility] 11-13-2023 18:28-0400 Body mass index (BMI) [Ratio] 37.8 kg/m2 [facility] 11-13-2023 18:28-0400 Body weight 133.94 kg [facility] 11-13-2023 18:02-0400 Body mass index (BMI) [Ratio] 37.54 kg/m2 Zuleyma Praisler-Wood APPLICATION PACKAGER.FULFILLMENT ASSOCIATE Work Phone: [facility] 11-13-2023 18:02-0400 Body temperature 98.01 [degF] Zuleyma Praisler-Wood APPLICATION PACKAGER.FULFILLMENT ASSOCIATE Work Phone: [facility] 11-13-2023 18:02-0400 Body weight 134.1 kg Zuleyma Praisler-Wood APPLICATION PACKAGER.FULFILLMENT ASSOCIATE Work Phone: [facility] 11-13-2023 18:02-0400 Diastolic blood pressure 68 mm[Hg] Zuleyma Praisler-Wood APPLICATION PACKAGER.FULFILLMENT ASSOCIATE Work Phone: [facility] 11-13-2023 18:02-0400 Heart rate 77 /min Zuleyma Praisler-Wood APPLICATION PACKAGER.FULFILLMENT ASSOCIATE Work Phone: [facility] 11-13-2023 18:02-0400 Respiratory rate 21 /min Zuleyma Praisler-Wood APPLICATION PACKAGER.FULFILLMENT ASSOCIATE Work Phone: [facility] 11-13-2023 18:02-0400 SaO2% (BldA) [Mass fraction] 98 % Zuleyma Praisler-Wood APPLICATION PACKAGER.FULFILLMENT ASSOCIATE Work Phone: [facility] 11-13-2023 18:02-0400 Systolic blood pressure 124 mm[Hg] Zuleyma Praisler-Wood APPLICATION PACKAGER.FULFILLMENT ASSOCIATE Work Phone: [facility] 05-31-2023 18:22-0500 Body weight 125.65 kg Clarence Rodriguez MD Work Phone: [facility] 05-31-2023 18:22-0500 Diastolic blood pressure 74 mm[Hg] Clarence Rodriguez MD Work Phone: [facility] 05-31-2023 18:22-0500 Heart rate 62 /min Clarence Rodriguez MD Work Phone: [facility] 05-31-2023 18:22-0500 Respiratory rate 16 /min Clarence Rodriguez MD Work Phone: [facility] 05-31-2023 18:22-0500 Systolic blood pressure 114 mm[Hg] Clarence Rodriguez MD Work Phone: [facility] 04-20-2023 09:30-0400 Body temperature 97 [degF] Clarence Rodriguez MD Work Phone: [facility] 04-20-2023 09:30-0400 Body weight 125.19 kg Clarence Rodriguez MD Work Phone: [facility] 04-20-2023 09:30-0400 Diastolic blood pressure 64 mm[Hg] Clarence Rodriguez MD Work Phone: [facility] 04-20-2023 09:30-0400 Heart rate 58 /min Clarence Rodriguez MD Work Phone: [facility] 04-20-2023 09:30-0400 Respiratory rate 16 /min Clarence Rodriguez MD Work Phone: [facility] 04-20-2023 09:30-0400 Systolic blood pressure 110 mm[Hg] Clarence Rodriguez MD Work Phone: [facility] 03-04-2023 09:27-0400 Body temperature 97.39 [degF] Uma Barbara APPLICATION PACKAGER.FULFILLMENT ASSOCIATE Work Phone: [facility] 03-04-2023 09:27-0400 Body weight 132.45 kg Uma Barbara APPLICATION PACKAGER.FULFILLMENT ASSOCIATE Work Phone: [facility] 03-04-2023 09:27-0400 Diastolic blood pressure 62 mm[Hg] Uma Barbara APPLICATION PACKAGER.FULFILLMENT ASSOCIATE Work Phone: [facility] 03-04-2023 09:27-0400 Heart rate 74 /min Uma Barbara APPLICATION PACKAGER.FULFILLMENT ASSOCIATE Work Phone: [facility] 03-04-2023 09:27-0400 Respiratory rate 16 /min Uma Jimenez APPLICATION PACKAGER.FULFILLMENT ASSOCIATE Work Phone: [facility] 03-04-2023 09:27-0400 SaO2% (BldA) [Mass fraction] 97 % Uma Jimenez APPLICATION PACKAGER.FULFILLMENT ASSOCIATE Work Phone: [facility] 03-04-2023 09:27-0400 Systolic blood pressure 112 mm[Hg] Uma Jimenez APPLICATION PACKAGER.FULFILLMENT ASSOCIATE Work Phone: [facility] 03-01-2023 16:09-0400 Body weight 132.9 kg Clarence Rodriguez MD Work Phone: [facility] 03-01-2023 16:09-0400 Diastolic blood pressure 84 mm[Hg] Clarence Rodriguez MD Work Phone: [facility] 03-01-2023 16:09-0400 Heart rate 70 /min Clarence Rodriguez MD Work Phone: [facility] 03-01-2023 16:09-0400 Respiratory rate 16 /min Clarence Rodriguez MD Work Phone: [facility] 03-01-2023 16:09-0400 Systolic blood pressure 122 mm[Hg] Clarence Rodriguez MD Work Phone: [facility] 10-19-2022 09:22-0400 Body temperature 98.01 [degF] Josselyn Hay APPLICATION PACKAGER.FULFILLMENT ASSOCIATE Work Phone: [facility] 10-19-2022 09:22-0400 Body weight 156.67 kg Josselyn Hay APPLICATION PACKAGER.FULFILLMENT ASSOCIATE Work Phone: [facility] 10-19-2022 09:22-0400 Diastolic blood pressure 84 mm[Hg] Josselyn Hay APPLICATION PACKAGER.FULFILLMENT ASSOCIATE Work Phone: [facility] 10-19-2022 09:22-0400 Heart rate 102 /min Josselyn Hay APPLICATION PACKAGER.FULFILLMENT ASSOCIATE Work Phone: [facility] 10-19-2022 09:22-0400 Respiratory rate 18 /min Josselyn Hay APPLICATION PACKAGER.FULFILLMENT ASSOCIATE Work Phone: [facility] 10-19-2022 09:22-0400 SaO2% (BldA) [Mass fraction] 97 % Josselyn Hay APPLICATION PACKAGER.FULFILLMENT ASSOCIATE Work Phone: [facility] 10-19-2022 09:22-0400 Systolic blood pressure 122 mm[Hg] Josselyn Hay APPLICATION PACKAGER.FULFILLMENT ASSOCIATE Work Phone: [facility] 03-22-2022 13:46-0400 Body weight 151.05 kg Nae Domínguez APPLICATION PACKAGER.FULFILLMENT ASSOCIATE Work Phone: [facility] 03-22-2022 13:46-0400 Diastolic blood pressure 100 mm[Hg] Nae Chaudhariagen APPLICATION PACKAGER.FULFILLMENT ASSOCIATE Work Phone: [facility] 03-22-2022 13:46-0400 Heart rate 98 /min Nae Domínguez APPLICATION PACKAGER.FULFILLMENT ASSOCIATE Work Phone: [facility] 03-22-2022 13:46-0400 Respiratory rate 18 /min Nae Domínguez APPLICATION PACKAGER.FULFILLMENT ASSOCIATE Work Phone: [facility] 03-22-2022 13:46-0400 SaO2% (BldA) [Mass fraction] 98 % Nae Domínguez APPLICATION PACKAGER.FULFILLMENT ASSOCIATE Work Phone: [facility] 03-22-2022 13:46-0400 Systolic blood pressure 146 mm[Hg] Nae Haceline APPLICATION PACKAGER.FULFILLMENT ASSOCIATE Work Phone: [facility] 03-15-2022 11:19-0400 Body height 187.96 cm [facility] Work Phone: 03-15-2022 11:19-0400 Body mass index (BMI) [Ratio] 43.4 kg/m2 [facility] Work Phone: 03-15-2022 11:190400 Body temperature 97.9 [degF] [facility] Work Phone: 03-15-2022 11:19-0400 Body weight 153.31 kg [facility] Work Phone: 03-15-2022 11:19-0400 Diastolic blood pressure 96 mm[Hg] [facility] Work Phone: 03-15-2022 11:19-0400 Heart rate 89 /min [facility] Work Phone: 03-15-2022 11:19-0400 Respiratory rate 18 /min [facility] Work Phone: 03-15-2022 11:19-0400 SaO2% (BldA) [Mass fraction] 98 % [facility] Work Phone: 03-15-2022 11:19-0400 Systolic blood pressure 148 mm[Hg] [facility] Work Phone: 03-15-2022 11:00-0400 Body temperature 97.5 [degF] Adriana Gutierres APPLICATION PACKAGER.FULFILLMENT ASSOCIATE Work Phone: [facility] 03-15-2022 11:00-0400 Body weight 153.77 kg Adriana Gutierres APPLICATION PACKAGER.FULFILLMENT ASSOCIATE Work Phone: [facility] 03-15-2022 11:00-0400 Diastolic blood pressure 82 mm[Hg] Adriana Gutierres APPLICATION PACKAGER.FULFILLMENT ASSOCIATE Work Phone: [facility] 03-15-2022 11:00-0400 Heart rate 94 /min Adriana Gutierres APPLICATION PACKAGER.FULFILLMENT ASSOCIATE Work Phone: [facility] 03-15-2022 11:00-0400 Respiratory rate 16 /min Adriana Gutierres APPLICATION PACKAGER.FULFILLMENT ASSOCIATE Work Phone: [facility] 03-15-2022 11:00-0400 SaO2% (BldA) [Mass fraction] 97 % Adriana Gutierres APPLICATION PACKAGER.FULFILLMENT ASSOCIATE Work Phone: [facility] 03-15-2022 11:00-0400 Systolic blood pressure 128 mm[Hg] Adriana Gutierres APPLICATION PACKAGER.FULFILLMENT ASSOCIATE Work Phone: [facility] 02-13-2022 19:51-0400 Body height 187.96 cm [facility] Work Phone: 02-13-2022 19:51-0400 Body mass index (BMI) [Ratio] 43.2 kg/m2 [facility] Work Phone: 02-13-2022 19:51-0400 Body temperature 94 [degF] [facility] Work Phone: 02-13-2022 19:51-0400 Body weight 153 kg [facility] Work Phone: 02-13-2022 19:51-0400 Diastolic blood pressure 95 mm[Hg] [facility] Work Phone: 02-13-2022 19:51-0400 Heart rate 95 /min [facility] Work Phone: 02-13-2022 19:51-0400 Respiratory rate 16 /min [facility] Work Phone: 02-13-2022 19:51-0400 SaO2% (BldA) [Mass fraction] 98 % [facility] Work Phone: 02-13-2022 19:51-0400 Systolic blood pressure 147 mm[Hg] [facility] Work Phone: 12-15-2021 12:02-0400 Body temperature 98.1 [degF] Caryl LONGORIA-C Work Phone: [facility] 12-15-2021 12:02-0400 Body weight 150.59 kg Caryl LONGORIA-C Work Phone: [facility] 12-15-2021 12:02-0400 Diastolic blood pressure 86 mm[Hg] Caryl LONGORIA-C Work Phone: [facility] 12-15-2021 12:02-0400 Heart rate 76 /min Caryl Green PA-C Work Phone: [facility] 12-15-2021 12:02-0400 Respiratory rate 18 /min Caryl Green PA-C Work Phone: [facility] 12-15-2021 12:02040 Systolic blood pressure 116 mm[Hg] Caryl Green PA-C Work Phone: [facility] Encounters Encounter Date Encounter Type Care Provider Facility Start: 02-05-2025 End: 02-05-2025 Emergency department patient visit Caryl LONGORIA Work Phone: -Emergency Department Work Phone: Start: 02-05-2025 End: 02-05-2025 ambulatory Caryl Green Facility:[facility] Start: 02-01-2025 End: 2025 Emergency department patient visit Caryl LONGORIA Work Phone: -Emergency Department Work Phone: Start: 08-02-2024 End: 08-02-2024 ambulatory CLARENCE RODRIGUEZ Facility:[facility] Start: 08-02-2024 End: 08-02-2024 Patient encounter procedure Clarence Rodriguez MD Work Phone: [facility] Comment on above: Tonsillitis (Primary Dx); Pharyngitis, unspecified etiology Start: 07-08-2024 End: 07-08-2024 ambulatory CLARENCE RODRIGUEZ Facility:[facility] Start: 07-08-2024 End: 07-08-2024 Office outpatient visit 25 minutes Clarence Giles APRN.FULFILLMENT ASSOCIATE Work Phone: [facility] Comment on above: Sore throat (Primary Dx); Strep pharyngitis Start: 05-29-2024 End: 05-29-2024 ambulatory CLARENCE RODRIGUEZ Facility:[facility] Start: 05-29-2024 End: 05-29-2024 Patient encounter procedure Case Garrett APPLICATION PACKAGER.FULFILLMENT ASSOCIATE Work Phone: [facility] Comment on above: Sore throat (Primary Dx); Acute otitis media, right Start: 11-13-2023 End: 11-13-2023 Emergency department patient visit [facility] Work Phone: Start: 11-13-2023 End: 11-13-2023 ambulatory CLARENCE RODRIGUEZ Facility:[facility] Start: 11-13-2023 End: 11-13-2023 Patient encounter procedure Zuleyma Jovan LIU Work Phone: [facility] Comment on above: Exposure to blood (P rimary Dx) Start: 08-09-2023 End: 08-09-2023 ambulatory CLARENCE RODRIGUEZ Facility:[facility] Start: 05-31-2023 End: 05-31-2023 Patient encounter procedure Clarence Rodriguez MD Work Phone: [facility] Comment on above: GERD without esophag itis (Primary Dx); Encounter for immunization Start: 05-19-2023 Non-patient / Non-visit SWATI LONGORIA Work Phone: [facility] Start: 05-19-2023 End: 05-19-2023 ambulatory SWATI LONGORIA Work Phone: [facility] Work Phone: Start: 05-19-2023 End: 05-19-2023 Patient encounter procedure SWATI LONGORIA Work Phone: [facility] Work Phone: Start: 05-03-2023 ambulatory Clarence miller MD Work Phone: [facility] [place] Comment on above: Wait time Start: 04-20-2023 End: 04-20-2023 Patient encounter procedure Clarence Rodriguez MD Work Phone: [facility] [place] Comment on above: Atypical chest pain (Primary Dx); GERD without esophagitis; Family history of early CAD Start: 04-05-2023 ambulatory Clarence miller MD Work Phone: [facility] [place] Comment on above: Stomach meds Start: 03-04-2023 End: 03-04-2023 Subsequent hospital visit by physician Mojgan [facility] Work Phone: Radiology Comment on above: Rib pain on left cristóbal e [R07.81] Start: 03-04-2023 End: 03-04-2023 Patient encounter procedure Uma Jimenez APPLICATION PACKAGER.FULFILLMENT ASSOCIATE Work Phone: [facility] Comment on above: Rib pain on left cristóbal e (Primary Dx) Start: 03-03-2023 Telephone encounter Caryl mendoza PA-C Work Phone: [facility] [place] Comment on above: Results Start: 03-01-2023 End: 03-01-2023 Patient encounter procedure Clarence Rodriguez MD Work Phone: [facility] [place] Comment on above: Well adult exam (Jackie jenny Dx); LOCKHART (nonalcoholic steatohepatitis); SANJAY (generalized anxiety disorder); Panic attack; Screening for diabetes mellitus; Elevated LFTs; GERD without esophagitis; Heat intolerance; Candidiasis Start: 03-01-2023 End: 03-01-2023 Patient encounter status Clarence Rodriguez MD Work Phone: [facility] Work Phone: Start: 01-05-2023 Refill Tayler hussein APRN.FULFILLMENT ASSOCIATE Work Phone: Psychiatry Comment on above: Refill Request Start: 12-21-2022 Telephone encounter Caryl mendoza PA-C Work Phone: Family [facility] [place] Comment on above: Results Start: 12-20-2022 End: 12-20-2022 Subsequent hospital visit by physician [facility] Work Phone: Radiology Comment on above: Elevated LFTs [R79.8 9] Start: 11-02-2022 Refill Tayler hussein APPLICATION PACKAGER.FULFILLMENT ASSOCIATE Work Phone: Psychiatry Comment on above: Refill Request Start: 10-19-2022 End: 10-19-2022 Patient encounter procedure Josselyn Hay BLAKE.FULFILLMENT ASSOCIATE Work Phone: [facility] Comment on above: Sorethroat (Primary Dx) Start: 09-09-2022 End: 09-09-2022 [facility] Tayler Gonsalez APRN.FULFILLMENT ASSOCIATE Work Phone: Psychiatry Comment on above: Panic disorder witho ut agoraphobia (Primary Dx) Start: 08-04-2022 Refill Tayler Mchugh Roelr u APPLICATION PACKAGER.FULFILLMENT ASSOCIATE Work Phone: Psychiatry Comment on above: Refill Request Start: 07-15-2022 End: 07-15-2022 Distance Health Tayler Gonsalez APPLICATION PACKAGER.FULFILLMENT ASSOCIATE Work Phone: Psychiatry Comment on above: Panic disorder witho ut agoraphobia (Primary Dx) Start: 06-24-2022 Refill Tayler Mchugh Roelr u APPLICATION PACKAGER.FULFILLMENT ASSOCIATE Work Phone: Psychiatry Comment on above: Refill Request Start: 05-10-2022 ambulatory Anuel Mckenna MD Work Phone: Orthopaedics Comment on above: Question regarding M RI SHOULDER WO IVCON LT Start: 05-09-2022 End: 05-09-2022 Subsequent hospital visit by physician Mri Radio [facility] (I-Stat/1.5t) Work Phone: Radiology Comment on above: Acute pain of left s houlder [M25.512] Start: 04-28-2022 End: 04-28-2022 Subsequent hospital visit by physician Xr [facility] Work Phone: Radiology Comment on above: Acute pain of left s houlder [M25.512] Start: 04-28-2022 End: 04-28-2022 Patient encounter procedure Anuel Mckenna MD Work Phone: Orthopaedics Comment on above: Acute pain of left s houlder (Primary Dx); Traumatic complete tear of left rotator cuff, initial encounter Start: 04-08-2022 Telephone encounter Nae berger APRN.FULFILLMENT ASSOCIATE Work Phone: Family Medicine [place] Comment on above: Orders Start: 04-07-2022 End: 04-07-2022 ambulatory Cesar Callaway [facility] Physical Therapy Comment on above: Acute pain of left s houlder Start: 03-29-2022 ambulatory Nae Domínguez APRN.FULFILLMENT ASSOCIATE Work Phone: Family Medicine [place] Comment on above: Physical therapy Start: 03-25-2022 Telephone encounter Nae berger APRN.FULFILLMENT ASSOCIATE Work Phone: [facility] Comment on above: Results Start: 03-23-2022 ambulatory Nae Domínguez APPLICATION PACKAGER.FULFILLMENT ASSOCIATE Work Phone: [facility] Comment on above: Pain relief Start: 03-22-2022 End: 03-22-[address] [facility] Work Phone: Start: 03-22-2022 End: 03-22-2022 Patient encounter procedure [facility]-Cat Scan, [facility] Start: 03-22-2022 Telephone encounter Nae berger APPLICATION PACKAGER.FULFILLMENT ASSOCIATE Work Phone: [facility] Comment on above: Results Start: 03-22-2022 End: 03-22-2022 Office outpatient visit 25 minutes Nae Domínguez APRN.FULFILLMENT ASSOCIATE Work Phone: [facility] Comment on above: Flank pain (Primary Dx); Acute cystitis with hematuria; Acute pain of left shoulder Start: 03-15-2022 End: 03-15-2022 Emergency department patient visit [facility]-Emergency Department Start: 03-15-2022 End: 03-15-2022 Patient encounter procedure Adriana Gutierres APPLICATION PACKAGER.FULFILLMENT ASSOCIATE Work Phone: [facility] Comment on above: Injury of head, init ial encounter (Primary Dx); Accident caused by farm tractor, initial encounter Start: 02-21-2022 End: 02-21-2022 [facility] Tayler Gonsalez APPLICATION PACKAGER.FULFILLMENT ASSOCIATE Work Phone: Psychiatry Comment on above: Panic disorder witho ut agoraphobia (Primary Dx) Start: 02-13-2022 End: 02-13-2022 Emergency department patient visit [facility]-Emergency Department Start: 01-21-2022 End: 01-21-2022 Patient encounter procedure Grey Barkley HOSPITAL SCIENTIST Work Phone: Psychology Comment on above: Severe anxiety (Prim sabrina Dx); Mild depression Start: 01-10-2022 Telephone encounter Grey workman HOSPITAL SCIENTIST Work Phone: Psychology Comment on above: Consult ([facility] C justino) Start: 12-30-2021 Telephone encounter Grey workman HOSPITAL SCIENTIST Work Phone: Psychology Comment on above: Consult ([facility] C alltrinity) Start: 12-28-2021 Telephone encounter Grey workman HOSPITAL SCIENTIST Work Phone: Psychology Comment on above: Consult ([facility] Pt Out reach F/U) Start: 12-27-2021 Telephone encounter Grey workman HOSPITAL SCIENTIST Work Phone: Psychology Comment on above: Consult ([facility] Pt Out reach F/U) Start: 12-23-2021 Telephone encounter Clarence Rodriguez MD Work Phone: Family Medicine [place] Comment on above: Patient Question Start: 12-22-2021 Telephone encounter Grey workman HOSPITAL SCIENTIST Work Phone: Psychology Comment on above: Consult (Initial [facility] W Pt Outreach) Start: 12-21-2021 Telephone encounter Clarence Rodriguez MD Work Phone: [facility] [place] Comment on above: Patient Update; Medi cation Problem Patient Update Start: 12-15-2021 End: 12-15-2021 Patient encounter procedure Caryl Green PA-C Work Phone: Family [facility] [place] Comment on above: SANJAY (generalized anx iety disorder) (Primary Dx); Panic attack; Seasonal allergic rhinitis, unspecified trigger Start: 12-10-2021 Telephone encounter Caryl mendoza PA-C Work Phone: Family [facility] [place] Comment on above: Medication Question Start: 12-02-2021 Refill Clarence miller MD Work Phone: Family [facility] [place] Comment on above: Refill Request Refill Start: 03-19-2021 Patient encounter status Clarence Rodriguez MD Work Phone: [facility] Work Phone: Procedures Date Procedure Procedure Detail Performing Clinician Start: 07-08-2024 STREP A MOLECULAR (POC) Onel Chambers MD Work Phone: Start: 05-29-2024 STREP A MOLECULAR (POC) Adriana Gutierres APPLICATION PACKAGER.FULFILLMENT ASSOCIATE Work Phone: Start: 05-31-2023 INFLUENZA VACCINE, A GE 6 MO - 64 YR, QUADRIVALENT (AFLURIA, FLULAVAL, FLUZONE) Clarence Rodriguez MD Work Phone: Start: 03-04-2023 Radex ribs uni w/pos teroant ch minimum 3 views Uma Jimenez APPLICATION PACKAGER.FULFILLMENT ASSOCIATE Work Phone: Start: 12-20-2022 Us abdominal [...] et rgnt auto w/o microscopy Nae Domínguez APPLICATION PACKAGER.FULFILLMENT ASSOCIATE Work Phone: Start: 03-15-2022 X-ray of chest posteroanterior view Start: 03-15-2022 Plain X-ray of shoulder Start: 02-13-2022 Plain x-ray of hand Plan of Treatment Date Care Activity Detail Author Start: 02-14-2032 Urine microalbumin profile DTaP,Tdap,Td Vaccine (10 - Td or Tdap) [facility] Start: 01-04-2031 Urine microalbumin profile [facility] Start: 2025 [facility] Start: 03-24-2024 Covid-19 Vaccine ( season) Covid-19 Vaccine ( season) [facility] Start: 03-24-2024 Covid-19 Vaccine ( season) Covid-19 Vaccine ( season) [facility] Start: 03-24-2024 Influenza vaccination Influenza Vacc ine (#1) [facility] Start: 12-13-2023 COVID-19 VACCINE (#1) COVID-19 VACCI NE (#1) [facility] Comment on above: Postponed from 08/05 (Declined at this time) Start: 11-13-2023 [facility] Start: 11-13-2023 Hepatitis B surface antigen measurement [facility] Start: 11-13-2023 Hepatitis C antibody measurement [facility] Start: 07-24-2023 Behavioral Health Screening Behavioral Health Screening [facility] Start: 07-23-2023 DEPRESSION ASSESSMENT DEPRESSION ASS [facility] Comment on above: Postponed from 07/24 (Declined at this time) Start: 03-24-2023 Covid-19 Vaccine () Covid-19 Vaccine () [facility] Start: 03-24-2023 Influenza vaccination [facility] Start: 12-21-2022 End: 02-20-2023 LIPID PANEL, NONFASTING LIPID PANEL, NONFASTING Lab Routine Fatty liver Encounter for lipid screening for cardiovascular disease Expected: 12/21/2022, Expires: 02/20/2023 [facility] Work Phone: Comment on above: Expected: 12/21/2022 , Expires: 02/20/2023 Start: 07-24-2022 [facility]PRESSION [facility]MENT [facility] Start: 03-24-2022 Influenza vaccination [facility] Start: 03-22-2022 End: 05-22-2022 CBC W Auto Differential panel - Blood CBC + DIFF Lab STAT Flank pain Expected: 03/22/2022, Expires: 05/22/2022 [facility] Work Phone: Comment on above: Expected: 03/22/2022 , Expires: 05/22/2022 Start: 03-22-2022 End: 05-22-2022 Comprehensive metabolic 2000 panel - Serum or Plasma COMP METABOLIC PANEL Lab STAT Flank pain Expected: 03/22/2022, Expires: 05/22/2022 [facility] Work Phone: Comment on above: Expected: 03/22/2022 , Expires: 05/22/2022 Start: 01-04-2022 COVID-19 VACCINE (#1) COVID-19 VACCI NE (#1) [facility] Comment on above: Postponed from 02/02 (Declined at this time) Start: 01-04-2022 HEPATITIS C SCREENING HEPATITIS C [facility] Comment on above: Postponed from 02/02 (Declined at this time) Start: 07-24-2021 DEPRESSION ASSESSMENT DEPRESSION ASS ESSMENT [facility] Start: 2013 Depression Screening Depression Scre ening [facility] Start: 2013 HEPATITIS C SCREENING HEPATITIS C [facility] Start: 2009 PEDS TO ADULT TRANSITION ANNUAL ASSESSMENT PEDS TO ADULT TRANSITION ANNUAL ASSESSMENT [facility] Start: 2007 PEDS TO ADULT TRANSITION INITIAL DISCUSSION PEDS TO ADULT TRANSITION INITIAL DISCUSSION [facility] Start: 2006 HPV VACCINE (1 - Mal e 2-dose series) HPV VACCINE (1 - Male 2-dose series) [facility] Start: 02-03-2000 COVID-19 VACCINE (#1) COVID-19 VACCI NE (#1) [facility] Start: 1995 COVID-19 VACCINE (#1) COVID-19 VACCI NE (#1) [facility] Bacteria identified in Urine by Culture URINE CULTURE Microbiology Routine Flank pain 03/22/2022 2:36 PM EDT [facility] Work Phone: End: 04-21-2023 Ct abdomen & pelvis w/o contrast material CT ABD/PEL WO IVCON Radiology STAT Flank pain 1 Occurrences starting 03/22/2022 until 04/21/2023 [facility] Work Phone: Comment on above: 1 Occurrences starti ng 03/22/2022 until 04/21/2023 End: 04-20-2024 ECG COMPLETE ECG COMPLETE ECG Routine Atypical chest pain 1 Occurrences starting 04/20/2023 until 04/20/2024 [facility] Work Phone: Comment on above: 1 Occurrences starti ng 04/20/2023 until 04/20/2024 End: 04-20-2024 EXERCISE STRESS ECG (WITHOUT IMAGING) EXERCISE STRESS ECG (WITHOUT IMAGING) Cardiology Routine Atypical chest pain Family history of early CAD 1 Occurrences starting 04/20/2023 until 04/20/2024 [facility] Work Phone: Comment on above: 1 Occurrences starti ng 04/20/2023 until 04/20/2024 Hepatitis B virus surface IgG Ab [Presence] in Serum [facility] HIV 1+2 Ab+HIV1 p24 Ag [Presence] in Serum or Plasma by Immunoassay [facility] Patient Education [facility] Work Phone: Patient referral [facility] Work Phone: Urinalysis complete panel - Urine URINALYSIS, WITH MICROSCOPIC Lab Routine Flank pain 03/22/2022 2:36 PM EDT [facility] Work Phone: XR SHOULDER GENERAL 3V OR MORE AP/TRUE AP/OTHER LEFT XR SHOULDER GENERAL 3V OR MORE AP/TRUE AP/OTHER LEFT Radiology Routine Acute pain of left shoulder 04/28/2022 11:45 AM EDT [facility] Work Phone: [facility] Immunizations Immunization Date Immunization Notes Care Provider Cheyanne palacios 02-05-2025 rabies vaccine, for intramuscular injection Caryl LONGORIA Work Phone: [facility] 2025 rabies immune globulin Patricia LONGORIA Work Phone: [facility] 2025 rabies vaccine, for intramuscular injection Caryl LONGORIA Work Phone: [facility] 2025 tetanus toxoid, redu yanira diphtheria toxoid, and acellular pertussis vaccine, adsorbed Caryl LONGORIA Work Phone: [facility] 05-31-2023 influenza, injectabl e, quadrivalent, contains preservative Clarence Rodriguez MD Work Phone: [facility] 05-31-2023 influenza virus vacc ine, unspecified formulation Xr [place] Work Phone: [facility] 02-13-2022 tetanus toxoid, redu yanira diphtheria toxoid, and acellular pertussis vaccine, adsorbed [facility] 01-04-2021 tetanus toxoid, redu yanira diphtheria toxoid, and acellular pertussis vaccine, adsorbed Clarence Rodriguez MD Work Phone: [facility] 06-14-2019 influenza virus vacc ine, unspecified formulation Clarence Rodriguez MD Work Phone: [facility] 05-24-2019 Influenza virus vaccine [facility] 05-14-2016 tetanus toxoid, redu yanira diphtheria toxoid, and acellular pertussis vaccine, adsorbed Clarence Rodriguez MD Work Phone: [facility] 01-31-2011 hepatitis A vaccine, unspecified formulation Clarence Rodriguez MD Work Phone: [facility] Work Phone: 02-18-2009 hepatitis A vaccine, unspecified formulation Clarence Rodriguez MD Work Phone: [facility] Work Phone: 02-18-2009 Meningococcal, MCV4, unspecified conjugate formulation(groups A, C, Y and W-135) Clarence Rodriguez MD Work Phone: [facility] Work Phone: 02-21-2006 tetanus toxoid, redu yanira diphtheria toxoid, and acellular pertussis vaccine, adsorbed Clarence Rodriguez MD Work Phone: [facility] Work Phone: 07-04-2003 influenza virus vacc ine, unspecified formulation Clarence Rodriguez MD Work Phone: [facility] Work Phone: 03-03-2000 diphtheria, tetanus toxoids and acellular pertussis vaccine Clarence Rodriguez MD Work Phone: [facility] Work Phone: 03-03-2000 measles, mumps and rubella virus vaccine Clarence Rodriguez MD Work Phone: [facility] Work Phone: 03-03-2000 poliovirus vaccine, inactivated Clarence Rodriguez MD Work Phone: [facility] Work Phone: 07-24-1997 Chicken Pox (disease) Alex Rodriguez MD Work Phone: [facility] Work Phone: 05-07-1996 diphtheria, tetanus toxoids and acellular pertussis vaccine Clarence Rodriguez MD Work Phone: [facility] Work Phone: 05-07-1996 haemophilus influenz ae type b vaccine, HbOC conjugate Clarence Rodriguez MD Work Phone: [facility] Work Phone: 02-28-1996 measles, mumps and rubella virus vaccine Clarence Rodriguez MD Work Phone: [facility] Work Phone: 1995 diphtheria, tetanus toxoids and acellular pertussis vaccine Clarence Rodriguez MD Work Phone: [facility] Work Phone: 1995 haemophilus influenz ae type b vaccine, HbOC conjugate Clarence Rodriguez MD Work Phone: [facility] Work Phone: 1995 hepatitis B vaccine, pediatric or pediatric/adolescent dosage Clarence Rodriguez MD Work Phone: [facility] Work Phone: 1995 trivalent poliovirus vaccine, live, oral Clarence Rodriguez MD Work Phone: [facility] Work Phone: 1995 diphtheria, tetanus toxoids and acellular pertussis vaccine Clarence Rodriguez MD Work Phone: [facility] Work Phone: 1995 haemophilus influenz ae type b vaccine, HbOC conjugate Clarence Rodriguez MD Work Phone: [facility] Work Phone: 1995 trivalent poliovirus vaccine, live, oral Clarence Rodriguez MD Work Phone: [facility] Work Phone: 1995 diphtheria, tetanus toxoids and acellular pertussis vaccine Clarence Rodriguez MD Work Phone: [facility] Work Phone: 1995 haemophilus influenz ae type b vaccine, HbOC conjugate Clarence Rodriguez MD Work Phone: [facility] Work Phone: 1995 hepatitis B vaccine, pediatric or pediatric/adolescent dosage Clarence Rodriguez MD Work Phone: [facility] Work Phone: 1995 trivalent poliovirus vaccine, live, oral Clarence Rodriguez MD Work Phone: [facility] Work Phone: 1995 hepatitis B vaccine, pediatric or pediatric/adolescent dosage Clarence Rodriguez MD Work Phone: [facility] Work Phone: Payers Date Payer Category Payer Self-pay [id number] 2022 Unknown [id number] 2021 Unknown [id number] 2021 Unknown [id number] 2016 Medicaid [id number] Private Health Insurance [id number] Unknown [id number] Unknown [id number] Social History Date Type Detail Facility Start: 02-24-2011 End: 02-01-2025 Tobacco smoking status NHIS Never smoked tobacco [facility] Start: 08-12-2021 End: 08-02-2024 Alcohol intake Current non-drinker of alcohol (finding) [facility] Start: 09-16-2019 End: 12-12-2022 History SDOH Alcohol Frequency 1 [facility] Start: 09-16-2019 End: 12-12-2022 History SDOH Alcohol Std Drinks 98 [facility] Start: 07-25-2019 End: 12-12-2022 History SDOH Social Connections Phone 5 [facility] Start: 07-25-2019 End: 12-12-2022 History SDOH Social Connections Membership 2 [facility] Start: 07-25-2019 End: 12-12-2022 History SDOH Social Connections Living 3 [facility] Start: 07-25-2019 End: 12-12-2022 History SDOH Physical Activity MPS 6 [facility] Start: 07-25-2019 Education 12 [facility] Start: 1995 Sex Assigned At Male [facility] Start: 12-05-2021 End: 05-26-2022 Exposure to SARS-CoV-2 (event) Not sure [facility] Start: 02-13-2022 End: 11-13-2023 Tobacco smoking status NHIS Unknown if ever smoked [facility] Start: 07-18-[address] [facility] Start: 07-18-2019 Spouse/ Significant Other;With Family [facility] Start: 11-24-[address] [facility] Start: 02-24-2011 End: 03-22-2022 Tobacco use and exposure Smokeless tobacco non-user [facility] Start: 04-28-2022 Tobacco use and exposure User of smokeless tobacco [facility] Start: 12-12-2022 History SDOH Alcohol Std Drinks 0 [facility] Start: 03-01-2023 Tobacco use and exposure Former smokeless tobacco user [facility] Work Phone: End: 02-20-2023 History of tobacco use Chews Tobacco [facility] Work Phone: Start: 12-11-2022 End: 08-02-2024 History of Social function [facility] Start: 12-11-2022 End: 08-02-2024 Social connection and isolation panel [facility] Do you belong to any clubs or organizations such as mormonism groups, unions, fraternal or athletic groups, or school groups? No [facility] How often do you att end meetings of the clubs or organizations you belong to? Patient refused [facility] Are you now , , , , never or living with a partner? [facility] How often to you hav e a drink containing alcohol? Never [facility] Do you feel stress - tense, restless, nervous, or anxious, or unable to sleep at night because your mind is troubled all the time - these days [OSQ] Very much [facility] (I/We) worried wheth er (my/our) food would run out before (I/we) got money to buy more. Never true [facility] Start: 12-18-2020 Gender identity Identifies as male gender (finding) [facility] Start: 12-18-2020 Sexual orientation Heterosexual (finding) [facility] Clinical Notes 08-16-2019 to 08-02-2024 Clarence Rodriguez MD - 08/02/2024 10:23 AM Clarence Santillan APRN.FULFILLMENT ASSOCIATE - 07/08/2024 7:54 AM Case Jean Baptiste APRN.FULFILLMENT ASSOCIATE - 05/29/2024 2:57 PM Clarence Hernandez MD - 05/31/2023 5:56 PM EST Note Date & Type Note Facility 08-02-2024 Note HNO ID: [id number] Author: CLARENCE RODRIGUEZ MD Service: ? Author [...] Relation Age of Onset Heart Maternal Grandfather SD Hypertension Mother None Father Heart Maternal Uncle [...] Influenza Vaccine(1) due on 03/24/2024 Covid-19 Vaccine( - 2023- season) Never done DTaP,Tdap,Td Vaccine(10 - Td [...] to ENT for tonsillectomy. Clarence Rodriguez MD [facility] 08-02-2024 History of Presen t illness Narrative [...] Relation Age of Onset Heart Maternal Grandfather SD Hypertension Mother None Father Heart Maternal Uncle [...] Clarence Rodriguez MD documented in this encounter [facility] 07-08-2024 Note HNO ID: [id number] Author: CLARENCE GILES APRN.FULFILLMENT ASSOCIATE Service: ? Author Type: Nurse Practitioner [...] Relation Age of Onset Heart Maternal Grandfather SD Hypertension Mother None Father Heart Maternal Uncle [...] amoxicillin. Patient was (more content not included)... [facility] 07-08-2024 History of Presen t illness Narrative [...] Relation Age of Onset Heart Maternal Grandfather SD Hypertension Mother None Father Heart Maternal Uncle [...] of care. This note was generated using [employer] software. It may contain errors in wording, punctuation, or spelling. Clarence Giles APRN.FULFILLMENT ASSOCIATE documented in this encounter [facility] 05-29-2024 Note HNO ID: [id number] Author: CASE GARRETT APRN.[facility]INITA Service: ? Author Type: Nurse Practitioner Type: Progress Notes Filed: 05/29/2024 15:04 Note Text: This note was created using [employer]. Subjective Aldair Yepez is a 29 year [...] - AMOXICILLIN 875 MG TABLET Case Garrett APRN.[facility] 05-29-2024 History of Presen t illness Narrative This note was created using [employer]. Subjective Aldair Yepez is a 29 year [...] - AMOXICILLIN 875 MG TABLET Case Garrett APRN.FULFILLMENT ASSOCIATE documented in this encounter [facility] 11-13-2023 Note HNO ID: [id number] Author: ZULEYMA ALDANA APRN.[facility]INITA Service: ? Author [...] Relation Age of Onset Heart Maternal Grandfather SD Hypertension Mother None Father Heart Maternal Uncle [...] go to ER as advised. Zuleyma Aldana APRN.[facility] 11-13-2023 History of Presen t illness Narrative Images from the original note were not included. Subjective HPI Aldair Yepez is a 28 [...] Relation Age of Onset Heart Maternal Grandfather SD Hypertension Mother None Father Heart Maternal Uncle [...] go to ER as advised. Zuleyma Aldana APRN.FULFILLMENT ASSOCIATE documented in this encounter [facility] 08-09-2023 Note HNO ID: [id number] Author: CLARENCE RODRIGUEZ MD Service: ? Author [...] and a maternal grandfather who of a SD in either his 40-50's. Past medical history, appointments, medications, allergies reviewed. Previous Medical History PAST MEDICAL HISTORY Diagnosis Date ASNJAY (generalized anxiety disorder) 08/16/2019 GERD without esophagitis [...] Relation Age of Onset Heart Maternal Grandfather SD Hypertension Mother None Father Heart Maternal Uncle [...] Tdap) due on (more content not included)... [facility] 05-31-2023 History of Presen t illness Narrative [...] and a maternal grandfather who of a SD in either his 40-50's. Patient does not [...] Relation Age of Onset Heart Maternal Grandfather SD Hypertension Mother None Father Heart Maternal Uncle [...] Clarence Rodriguez MD documented in this encounter [facility] 05-05-2023 Miscellaneous Notes Order was faxed by isma and put into filing cabinet Patient notified and given scheduling number for [facility] if not contacted Appointment was made for 4 weeks Karen Novak Ma Form ready to be faxed. Let patient know we are sending order for stress to [facility]. Patient needs a f/u visit for GERD in about 4 weeks Form completed and given to provider. And referral placed Patricia Carpenter MA Isma can we fax an order over to [facility] to do a treadmill stress test. Dx: R07.89 and Z82.49 Patient needs a f/u visit for GERD in about [address] Rodriguez: No future stress test or 3-4 week f/u for GERD/chest pain scheduled in at this time. Wilda Burgess MA documented in this encounter [facility] 04-20-2023 History of Presen t illness Narrative [...] and a maternal grandfather who of a SD in either his 40-50's. Patient does not [...] Relation Age of Onset Heart Maternal Grandfather SD Hypertension Mother None Father Heart Maternal Uncle [...] Clarence Rodriguez MD documented in this encounter [facility] 04-12-2023 Miscellaneous Notes Pt has appointment scheduled with Caryl 04/20/23. Vika Hernandez LPN Attempted to schedule pt for office visit but was unable to do so d/t insurance (reached denial tree). Pt advised to contact office to speak with scheduling for appt. Michael Hernandez LPN Patient will need seen in office. documented in this encounter [facility] 03-04-2023 History of Presen t illness Narrative [...] 2023 10:02 AM documented in this encounter [facility] 03-04-2023 History of Presen t illness Narrative Images from the original note were not included. Subjective The history is provided by the patient. No asphalt coater was used. HPI Aldair Yepez is a [...] have confirmed and edited as necessary, the [facility] Review of Systems Constitutional: Negative for [...] detail warranting prompt ER evaluation. Uma Jimenez APRN.FULFILLMENT ASSOCIATE documented in this encounter [facility] 03-03-2023 Miscellaneous Notes Patient notified of results and provider's instructions. Patient verbalizes understanding. Vika Hernandez LPN Let patient know that overall labs look okay/stable. Keep working on diet and weight loss to help with cholesterol and fatty liver. Caryl Green PA-C documented in this encounter [facility] 03-01-2023 Instructions Clarence Rodriguez MD - 03/01/2023 4:45 PM EDT Please get labs done on or after 08/18/2023 prior to your next visit. documented in this encounter [facility] 03-01-2023 History of Presen t illness Narrative Chief Complaint Patient presents with: Physical HPI Aldair Yepez is a 28 year old male who presents here today for Physical. Office visit - Physical - 03/01/2023 Patient with Hx of SANJAY, panic attacks, Obesity, seasonal allergies as well as those below. [facility] and recently was switched form Effexor to [...] Relation Age of Onset Heart Maternal Grandfather SD Hypertension Mother None Father Heart Maternal Uncle [...] Abs Lymph 1.00 - 4.00 k/uL 1.59 Rhea% % 8.9 Abs Rhea <0.87 k/uL 0.62 Eosin% % 4.4 Abs [...] Clarence Rodriguez MD documented in this encounter [facility] 01-06-2023 Miscellaneous Notes Patient has been identified [...] Beth Murphy LPN documented in this encounter [facility] 12-21-2022 Miscellaneous Notes Spoke with patient. Given [...] Caryl Green PA-C documented in this encounter [facility] 12-20-2022 History of Presen t illness Narrative [...] 2022 11:04 AM documented in this encounter [facility] 11-03-2022 Miscellaneous Notes Patient has been identified [...] Beth Murphy LPN documented in this encounter [facility] 10-19-2022 History of Presen t illness Narrative [...] Relation Age of Onset Heart Maternal Grandfather SD Hypertension Mother None Father Heart Maternal Uncle [...] fluids Call if things worsen Josselyn Hay APRN.CNP documented in this encounter [facility] 09-09-2022 Instructions Tayler Gonsalez APRN.CNP - 09/09/2022 3:59 PM EST Gita Carpenter, It was good to talk with you today. Below is a summary of the plan that we discussed during your appointment for reference. Of course, if you have any questions or concerns do not hesitate to reach out to me via a message or call. Best, Tayler Gonsalez APRN.CNP PLAN AND FOLLOW UP: YOU SHOULD [...] - Call the National Suicide Hotline at 5-400-VPFEDXI ( ) or 0-183-918-TALK (9266) - Text 8EITY to 940150 Medication Update: Stop Paxil. Venlafaxine 150 mg XR - take 1 capsule once daily. Propranolol 40 mg - take 1 tablet up to twice daily as needed. Next appointment: --Schedule in 4 to 6 weeks or sooner if needed -- You may call the department appointment line at [phone] to schedule your appointment. -- Please call my nurse Mary Beth at [phone] or send me a message in [employer] with any questions or concerns between appointments. documented in this encounter [facility] 09-09-2022 History of Presen t illness Narrative [...] which included preparing to see the patient, ljio-xw-[id number] patient care, completing clinical documentation, and counseling and educating the patient/family/caregiver, ordering medications/labs. Tayler Gonsalez APRN.[facility] September 09, 2022 3:29 PM This note was partially generated using [employer] voice recognition system. Note was reviewed for accuracy. There may be minor misspellings or grammar miscues with [employer] voice recognition. documented in this encounter [facility] 08-05-2022 Miscellaneous Notes Patient notified and voices [...] advise. Thank you. documented in this encounter [facility] 07-15-2022 Instructions Tayler Gonsalez APRN.CNP - 07/15/2022 3:30 PM EST Gita Carpenter, It was good to talk with you today. Below is a summary of the plan that we discussed during your appointment for reference. Of course, if you have any questions or concerns do not hesitate to reach out to me via a message or call. Best, Tayler Gonsalez APRN.CNP PLAN AND FOLLOW UP: YOU SHOULD [...] - Call the National Suicide Hotline at 8-111-QSZSOMF ( ) or 7-466-337-TALK (5790) - Text 4HOPE to 368307 Medication Update: Starting today, decrease Paxil to [...] may call the department appointment line at [phone] to schedule your appointment. -- Please call my nurse Mary Beth at [phone] or send me a message in [employer] with any questions or concerns between appointments. documented in this encounter [facility] 07-15-2022 History of Presen t illness Narrative [...] panic attacks if he tries to leave [place]. Propranolol only helped for a short time [...] which included preparing to see the patient, oghx-zn-eamw patient care, completing clinical documentation, and counseling and educating the patient/family/caregiver, ordering medications/labs. Tayler Gonsalez APRN.CNP July 15, 2022 2:56 PM This note was partially generated using [employer] voice recognition system. Note was reviewed for accuracy. There may be minor misspellings or grammar miscues with [employer] voice recognition. documented in this encounter [facility] 06-24-2022 Miscellaneous Notes Patient's spouse requesting refill [...] Devi Gross RN documented in this encounter [facility] 05-09-2022 History of Presen t illness Narrative [...] 2022 11:44 AM documented in this encounter [facility] 04-28-2022 History of Presen t illness Narrative [...] DATA: Not applicable SIGNED BY: RT Dominique(R) April 28, 2022 11:36 AM documented in this encounter [facility] 04-28-2022 History of Presen t illness Narrative Anuel Mckenna MD Department of Orthopaedics Orthopaedics [address] [facility] [address] Dept: [phone] Dept April 28, 2022 CHIEF COMPLAINT: New and Pain of the Left Shoulder HPI Patient here today for left shoulder pain x 1.5 months. 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 He was seen at [facility] after the injury. He was referred to [...] age indeterminate fracture in the greater tuberosity. Checking Clerk: PSCB Transcribe Date/Time: Apr 29 2022 2:28P Dictated [...] Relation Age of Onset Heart Maternal Grandfather SD Hypertension Mother None Father Heart Maternal Uncle [...] electronic medical record. Anuel Mckenna [address] [facility] [address] Clarence Rodriguez MD [address] [address] Anuel Mckenna MD documented in this encounter [facility] 04-08-2022 Miscellaneous Notes Received a message from PT. Concerned about a significant rotator cuff tear. Referral placed for ortho. Encouraged to schedule back for follow-up. Nae Domínguez APRN.CNP documented in this encounter [facility] 04-07-2022 History of Presen t illness Narrative [...] further evaluation from primary care physician or hiv cts specialist for further imaging and updated plan of care. Goals for Episode of Care: created on 04/07/22 through 05/07/22 [place] in home exercise program. Patient will decrease pain rating by 2 points to meet minimal clinical important difference for numeric pain rating scale. Perform ADL's with decreased report of symptoms/pain in 12 weeks. Perform work tasks and functions without pain. Planned Interventions, Frequency, and Duration: Current Frequency: 2x/week Duration: 4 weeks Total Number of Visits Planned: 8 Planned Treatment Interventions: Therapeutic exercise (43152);Neuromuscular re-education (90655);Manual therapy (88391);Therapeutic activities (97314);Self-custodial management (11906) PLAN FOR NEXT VISIT: Pt to follow up with PCP or hiv cts specialist Patient demonstrates good understanding of plan of care and treatment. The above goals and plan of care were discussed and agreed upon by patient/family. 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 Please help schedule. Nae Domínguez APRN.VINITA Ok to order PT for shoulder? Or do you want pt to come in again? documented in this encounter [facility] 03-29-2022 Miscellaneous Notes See MC message. Kidney [...] Nae Domínguez APRN.VINITA documented in this encounter [facility] 03-23-2022 Miscellaneous Notes Pt notified. He verbalized [...] pain medication is not helping. Was given [place]. Urine Cx in process. Nhi Rueda Ma documented in this encounter [facility] 03-23-2022 Miscellaneous Notes MC message's read by [...] 3. Good control of cholesterol. Nae Domínguez APRN.CNP Images from the original note were not included. Labs copied from Incoming Media: message to pt. Michael Hernandez LPN Can please let patient know that I received his CT results from [facility]. Thankfully, everything looked normal. He does have [...] Nae Domínguez APRN.VINITA documented in this encounter [facility] 03-22-2022 History of Presen t illness Narrative This is a 27 year old male who presents today with: Patient presents with: ER F/U: [facility] ER follow up 03/15 dx: mower rolled over on him HISTORY OF PRESENT ILLNESS: Aldair Yepez is a 27 year old male. Patient presents with: ER F/U: [facility] ER follow up 03/15 dx: mower rolled [...] Relation Age of Onset Heart Maternal Grandfather SD Hypertension Mother None Father Heart Maternal Uncle [...] as needed for worsening/no improvement. Nae Domínguez APRN.VINITA This note was partially generated using [employer] voice recognition system. Note was reviewed for accuracy. There may be minor misspellings or grammar miscues with [employer] voice recognition. 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 States that it tipped, He ultimately fell [...] ED Declines EMS. documented in this encounter [facility] 02-21-2022 Instructions Tayler Gonsalez APRN.CNP - 02/21/2022 9:07 AM EDT Gita Ledesma, It was good to meet and talk with you today. Below is a summary of the plan that we discussed during your appointment for reference. Of course, if you have any questions or concerns do not hesitate to reach out to me via a message or call. Jose M, Tayler Gonsalez APRN.CNP PLAN AND FOLLOW UP: YOU SHOULD [...] - Call the National Suicide Hotline at 6-889-LUBRKQD ( ) or 4-719-761-TALK (9179) - Text 5KNFO to 094567 Medication Update: - Paxil 40 mg - [...] may call the department appointment line at [phone] to schedule your appointment. -- Please call my nurse Mary Beth at [phone] or send me a message in [employer] with any questions or concerns between appointments. documented in this encounter [facility] 02-21-2022 History of Presen t illness Narrative [...] of town or anything. HPI: Per Grey Barkley, [facility]'s note of 01/21/2022: Pt is a 26yr [...] anxiety when he is trying to leave [place]. 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 Anxiety: high when he [...] visit. ROS: All other systems negative. Per CARMINA De La Vega's note of 01/21/2022: PSYCHIATRIC HISTORY: Prior Diagnosis: Anxiety Disorder Last Hospitalization: None Location of Hospitalization : N/A Reason for hospitalization/Length of Stay: N/A Psychiatrist/ FULFILLMENT ASSOCIATE: seen by psychiatrist x1 at [facility], no meds prescribed Therapist: seeing counselor at [facility], x1 wkly Global Supply Chain Vice President: None Mental Health Agency/Practice: [facility] Did you the previous treatment helpful? Not helpful ECT: no Previous Discontinued Psychiatric Med Trials: See HPI Per Grey Barkley [facility]'s note of 01/21/2022: SUBSTANCE USE HISTORY: Nicotine: [...] N/A, No history of use or dependence Cupola Melter Helper : N/A, No history of use or dependence Previous Treatments/ AA, NA, CA, etc.: denies Have you ever practiced sobriety: Not Applicable Are you interested in CD treatment? 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 denied any past legal history SPIRITUALITY/LUTHERAN: [employer] FAMILY PSYCHIATRIC/SUBSTANCE USE HISTORY: Sister-Anxiety Disorder and [...] which included preparing to see the patient, vgze-fi-tecr patient care, completing clinical documentation, obtaining and/or reviewing separately obtained history, counseling and educating the patient/family/caregiver, ordering medications, tests, or procedures, communicating with other HCPs (not separately reported) and independently interpreting results (not separately reported). ADD ON PSYCHOTHERAPY CODE : No SIGNATURE: Tayler Gonsalez APRN.CNP PATIENT NAME: Aldair Yepez DATE: February 21, 2022 TIME: 8:20 AM PAGER : documented in this encounter [facility] 01-21-2022 History of Presen t illness Narrative Behavioral Health Social Work Assessment Patient was seen for an initial evaluation. All information is from patient report except when noted. This evaluation is NOT intended for forensic, disability, or child custody purposes. Informed consent was discussed and signed by the patient. -Pt was sent [email or web address] with consent for tx -Pt read [email or web address], agreed [facility] Assessment: Virtual *Pt lost connection after 40 minutes -unable to reconnect -completed assessment via phone Pt location: In [facility] location: [place] PRESENT: Self Patient identified for [facility] from: PCP (Caryl Green, Chu) Reason for referral: [facility] Assessment (failed mental health tx, SANJAY,panic) [facility] encounter type: Virtual Visit Attempts to Outreach: [...] to cont with current counselor -will inform [facility] of his decision Medical History: PAST MEDICAL [...] OF EDUCATION: High School Diploma 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 denied any past legal history SPIRITUALITY/LUTHERAN: [employer] PFSH: Patient was born and raised in [place], [place], patient is the middle of 3 [...] Reason for hospitalization/Length of Stay: N/A Psychiatrist/ FULFILLMENT ASSOCIATE: seen by psychiatrist x1 at [facility], no meds prescribed Therapist: seeing counselor at [facility], x1 wkly Global Supply Chain Vice President: None Mental Health Agency/Practice: [facility] Did [...] N/A, No history of use or dependence Cupola Melter Helper : N/A, No history of use or [...] and 8 0 (none) to 10 (worst) [id number] Mood: positive for the most part Affect: [...] for anxiety, leaving town -seeing counselor from [facility] wkly, not helpful -saw psychiatrist x1 from [facility], no meds prescribed -interested in seeing psych photogrammetric surveyor Plan: -Pt was scheduled with Tayler Gonsalez [...] to cont with current counselor -will inform [facility] of his decision [facility] will send Pt Mary Beth's number, to contact her once financially cleared DIAGNOSIS: PRIMARY: 1: Anxiety Disorder severe Other: Depressive D/O mild RESOURCES PROVIDED: Internal: psychiatry External- has counselor at [facility], seen x1 wkly OTHER- N/A In case of a mental health emergency, contact Crisis line [phone] or report to your closest ER. MANSOOR De La Vega documented in this encounter [facility] 01-10-2022 Miscellaneous Notes Behavioral Health Social Work Progress Note Patient identified for [facility] from: PCP (Chu Zhao) Reason for referral: [facility] Assessment (failed mental health tx, SANJAY,panic) [facility] encounter type: Telephone Encounter Attempts to Outreach: 9 attempts Referral made: Psychology - Internal Psychology-Internal referral type: ( calling for sooner appt, has appt on 01-21-22) Final Disposition: Care established with (Pt is sched with assessment on 7-1-22 at 9am virtual) Patient Discharged?: Yes Patient reported that caregiver was able to meet their needs today?: Yes Received a call from Pt's ,Tali, requesting sooner appt -wants to have Pt see psych photogrammetric surveyor without having to see [facility] -anxiety is getting worse [facility] sent msg to psych photogrammetric surveyor -her 1st available is mid to last January and was advised for Pt to keep bh assessment [facility] contacted Pt's -informed her needs to keep bh assessment - requested to sched psych photogrammetric surveyor appt now -informed Pt will still need to keep bh assessment - agreed [facility] sent msg to psych photogrammetric surveyor -Pt is allowed to sched psych photogrammetric surveyor prior to completing bh assessment -if does not complete bh assessment psych photogrammetric surveyor appt will automatically be cancelled -contacted INOCENTE Clinton, to contact to sched with Tayler Gonsalez CNP -she agreed to contact [facility] contacted Pt's and informed of the above -she agreed [facility] pointed out due to needing financial clearance of each visit the appt may not be able to be scheduled MANSOOR De La Vega January 10, 2022 documented in this encounter [facility] 12-30-2021 Miscellaneous Notes Behavioral Health Social Work Progress Note Patient identified for [facility] from: PCP (Chu Zhao) Reason for referral: SW Assessment (failed mental health tx, SANJAY,panic) [facility] encounter type: Telephone Encounter Attempts to Outreach: 6 attempts Final Disposition: Resources given (12-30-21 informed needs to contact el? dept, [employer] company to find covered network provider, chong ramirez [phone]) Patient Discharged?: Yes Patient reported that caregiver [...] to tx his anxiety -offered following resource: [facility] [address] [place] [address] [facility] requested inform [facility] if she is able to get financial clearance or schedules an appt elsewhere. No further contact is indicated at this time MANSOOR De La Vega December 30, 2021 documented in this encounter [facility] 12-28-2021 Miscellaneous Notes Behavioral Health Social Work Progress Note Patient identified for [facility] from: PCP (Chu Zhao) Reason for referral: [facility] Assessment (failed mental health tx, SANJAY,panic) [facility] encounter type: Telephone Encounter Attempts to Outreach: 4 attempts Final Disposition: Other (12-28-21 Informed , unable to sched appt due to insurance out of network) Patient Discharged?: Yes Patient reported that caregiver was able to meet their needs today?: N/A [facility] received a msg from distribution operation supervisor Pt is unable to be scheduled -insurance is out of network [facility] attempted to contact Pt -left vm on his cell number -contacted and informed her the appt was cancelled due to insurance being out of network - offered to pay out of pocket -informed her she would need to talk with financial dept - stated she will contact the insurance company and get things worked out -[facility] recommended inquiring about covered behavioral health services when talking with the insurance. agreed to inform [facility] of the outcome of her conversation with the insurance No further contact is indicated -will wait to hear from MANSOOR De La Vega December 28, 2021 documented in this [facility] [facility] Miscellaneous Notes Behavioral Health Social Work Progress Note Patient identified for [facility] from: PCP (Chu Zhao) Reason for referral: [facility] Assessment (failed mental health tx, SANJAY,panic) [facility] encounter type: Telephone Encounter Attempts to Outreach: 2 attempts Referral made: Psychology - Internal Psychology-Internal referral type: (scheduled assessment for 01-07-22 at 9am virtual) SW received a msg from Chu Zhao - would like for Pt to see [facility] psychiatry provider [facility] attempted to contact Pt -no answer [facility] assessment for 01-07-22 at 9am virtual -sent surespot with appt info, consent for tx, PHQ9 and GAD7 MANSOOR De La Vega December 27, 2021 documented in this encounter [facility] 12-27-2021 Miscellaneous Notes Spoke with and they [...] a psychiatrist visit yesterday. He told our SW on 12/22 that he had a visit with psychiatrist on on 12/23 at 8am. They should be managing medications at this point. Caryl Green PA-C Patient's calling to say patient is feeling dizzy/anxious and is asking if it's because he stopped taking both Paxil and Buspar. Advised patient's there is a My Chart message from Carly saying that she did not say to stop medication but to decrease Buspar back to 7.5 mg twice daily. This nurse read the full message to patient's . She states he will resume both medications tonight and go to ER if symptoms worsen or persist. Alia Nuñez RN documented in this encounter [facility] 12-22-2021 Miscellaneous Notes BEHAVIORAL HEALTH SOCIAL WORK CONSULT NOTE Service Date: December 22, 2021 Patient was identified by name and Patient: Aldair Yepez [address] [facility] [address] (home) [phone] (cell) PCP: Clarence Rodriguez MD [address] [facility] [address] Patient identified for [facility] from: PCP (Chu Zhao) Reason for referral: [facility] Assessment (failed mental health tx, SANJAY,panic) [facility] encounter type: Telephone Encounter Assessment: SW received a consult from Chu Zhao, for assessment failed mental health tx, SANJAY, panic SW reviewed Pt's chart/insurance [facility] contacted Pt -he was unaware [facility] would be calling -stated has been communicating with [facility] office -reported he is receiving services from [facility], on line service -has seen a counselor -has an appt with a psychiatrist tomorrow at 8am Prefers to cont with current providers and not switch services at this time -Pt thanked [facility] for calling [facility] notified Chu Zhao, has services and will [...] is receiving counseling and psychiatry service from [facility]) Patient Discharged?: Yes Patient reported that caregiver was able to meet their needs today?: N/A Internal Referrals : No Reason for External Referrals : Other : Pt is established with behavioral health services, counseling and psychiatry at [facility], on line service Intervention: Supportive Listening Resources Provided: Other: none at this time Pt is established with behavioral health services Time Spent: 15 minutes MANSOOR De La Vega documented in this encounter [facility] 12-21-2021 Miscellaneous Notes noted Patient's calls and states that patient is feeling better. states that patient is just going to stop taking medication. Patient is not going to ER. Chely Rainey RN documented in this encounter [facility] 12-21-2021 Miscellaneous Notes Spoke with pt's . She advises that he is not back to normal and will take pt to [facility] ER as instructed by Caryl. Vika Hernandez [...] at work now. documented in this encounter [facility] 12-15-2021 History of Presen t illness Narrative [...] Relation Age of Onset Heart Maternal Grandfather [place] Hypertension Mother None Father Heart Maternal Uncle [...] J30.2 Discussed trial OTC antihistamine with the flonase. If not improving, can set up with curb builder. Caryl Green PA-C documented in this encounter [facility] 12-10-2021 Miscellaneous Notes Patient spouse was notified [...] together? Please advise documented in this encounter [facility] 12-03-2021 Miscellaneous Notes Spoke with pt's and she states [facility] Vika Hernandez LPN Patient [...] advise. Clementina Christina documented in this encounter [facility] 12-03-2021 Miscellaneous Notes Already addressed. Last refill 05/12/21 Qty: 30 with 5 refills Last ov 08/12/21 No appt scheduled Vika Hernandez LPN documented in this encounter [facility] 08-16-2019 History of Past i llness Narrative Problem Noted Date Resolved Date Globus sensation 08/16/2019 09/16/2019 documented as of this encounter (statuses as of 12/03/2021) [facility] of [facility] illness Narrative* Problem Noted Date Resolved Date Globus sensation 08/16/2019 09/16/2019 documented as of this encounter (statuses as of 12/03/2021) [place] [id number] History of Past illness Narrative* Problem Noted Date Resolved Date Globus sensation 08/16/2019 09/16/2019 documented as of this encounter (statuses as of 12/10/2021) [place] [id number] History of Past illness Narrative* Problem Noted Date Resolved Date Globus sensation 08/16/2019 09/16/2019 documented as of this encounter (statuses as of 12/15/2021) [place] [id number] History of Past illness Narrative* Problem Noted Date Resolved Date Globus sensation 08/16/2019 09/16/2019 documented as of this encounter (statuses as of 12/21/2021) [place] [id number] History of Past illness Narrative* Problem Noted Date Resolved Date Globus sensation 08/16/2019 09/16/2019 documented as of this encounter (statuses as of 12/21/2021) [place] [id number] History of Past illness Narrative* Problem Noted Date Resolved Date Globus sensation 08/16/2019 09/16/2019 documented as of this encounter (statuses as of 12/22/2021) [place] [id number] History of Past illness Narrative* Problem Noted Date Resolved Date Globus sensation 08/16/2019 09/16/2019 documented as of this encounter (statuses as of 12/27/2021) [place] [id number] History of Past illness Narrative* Problem Noted Date Resolved Date Globus sensation 08/16/2019 09/16/2019 documented as of this encounter (statuses as of 12/28/2021) [place] [id number] History of Past illness Narrative* Problem Noted Date Resolved Date Globus sensation 08/16/2019 09/16/2019 documented as of this encounter (statuses as of 12/30/2021) [place] [id number] History of Past illness Narrative* Problem Noted Date Resolved Date Globus sensation 08/16/2019 09/16/2019 documented as of this encounter (statuses as of 01/10/2022) [place] [id number] History of Past illness Narrative* Problem Noted Date Resolved Date Globus sensation 08/16/2019 09/16/2019 documented as of this encounter (statuses as of 01/21/2022) [place] [id number] History of Past illness Narrative* Problem Noted Date Resolved Date Globus sensation 08/16/2019 09/16/2019 documented as of this encounter (statuses as of 02/21/2022) [place] [id number] History of Past illness Narrative* Problem Noted Date Resolved Date Globus sensation 08/16/2019 09/16/2019 documented as of this encounter (statuses as of 03/15/2022) [place] [id number] History of Past illness Narrative* Problem Noted Date Resolved Date Globus sensation 08/16/2019 09/16/2019 documented as of this encounter (statuses as of 03/22/2022) [place] [id number] History of Past illness Narrative* Problem Noted Date Resolved Date Globus sensation 08/16/2019 09/16/2019 documented as of this encounter (statuses as of 03/23/2022) [place] [id number] History of Past illness Narrative* Problem Noted Date Resolved Date Globus sensation 08/16/2019 09/16/2019 documented as of this encounter (statuses as of 03/23/2022) [place] [id number] History of Past illness Narrative* Problem Noted Date Resolved Date Globus sensation 08/16/2019 09/16/2019 documented as of this encounter (statuses as of 03/29/2022) [place] [id number] History of Past illness Narrative* Problem Noted Date Resolved Date Globus sensation 08/16/2019 09/16/2019 documented as of this encounter (statuses as of 04/07/2022) [place] [id number] History of Past illness Narrative* Problem Noted Date Resolved Date Globus sensation 08/16/2019 09/16/2019 documented as of this encounter (statuses as of 04/08/2022) [place] [id number] History of Past illness Narrative* Problem Noted Date Resolved Date Globus sensation 08/16/2019 09/16/2019 documented as of this encounter (statuses as of 04/29/2022) [place] [id number] History of Past illness Narrative* Problem Noted Date Resolved Date Globus sensation 08/16/2019 09/16/2019 documented as of this encounter (statuses as of 05/10/2022) [place] [id number] History of Past illness Narrative* Problem Noted Date Resolved Date Globus sensation 08/16/2019 09/16/2019 documented as of this encounter (statuses as of 05/10/2022) [place] [id number] History of Past illness Narrative* Problem Noted Date Resolved Date Globus sensation 08/16/2019 09/16/2019 documented as of this encounter (statuses as of 05/16/2022) [place] [id number] History of Past illness Narrative* Problem Noted Date Resolved Date Globus sensation 08/16/2019 09/16/2019 documented as of this encounter (statuses as of 06/24/2022) [place] [id number] History of Past illness Narrative* Problem Noted Date Resolved Date Globus sensation 08/16/2019 09/16/2019 documented as of this encounter (statuses as of 07/17/2022) [place] [id number] History of Past illness Narrative* Problem Noted Date Resolved Date Globus sensation 08/16/2019 09/16/2019 documented as of this encounter (statuses as of 08/05/2022) [place] [id number] History of Past illness Narrative* Problem Noted Date Resolved Date Globus sensation 08/16/2019 09/16/2019 documented as of this encounter (statuses as of 09/14/2022) [place] [id number] History of Past illness Narrative* Problem Noted Date Resolved Date Globus sensation 08/16/2019 09/16/2019 documented as of this encounter (statuses as of 10/19/2022) [place] [id number] History of Past illness Narrative* Problem Noted Date Resolved Date Globus sensation 08/16/2019 09/16/2019 documented as of this encounter (statuses as of 11/03/2022) [place] [id number] History of Past illness Narrative* Problem Noted Date Resolved Date Globus sensation 08/16/2019 09/16/2019 documented as of this encounter (statuses as of 12/21/2022) [place] [id number] History of Past illness Narrative* Problem Noted Date Resolved Date Globus sensation 08/16/2019 09/16/2019 documented as of this encounter (statuses as of 01/06/2023) [place] [id number] History of Past illness Narrative* Problem Noted Date Diagnosed Date Resolved Date Globus sensation 08/16/2019 09/16/2019 documented as of this encounter (statuses as of 03/03/2023) [place] [phone] History of Past illness Narrative* Problem Noted Date Diagnosed Date Resolved Date Globus sensation 08/16/2019 09/16/2019 documented as of this encounter (statuses as of 03/04/2023) [place] [phone] History of Past illness Narrative* Problem Noted Date Diagnosed Date Resolved Date Globus sensation 08/16/2019 09/16/2019 documented as of this encounter (statuses as of 03/04/2023) [place] [phone] History of Past illness Narrative* Problem Noted Date Diagnosed Date Resolved Date Globus sensation 08/16/2019 09/16/2019 documented as of this encounter (statuses as of 04/12/2023) [place] [phone] History of Past illness Narrative* Problem Noted Date Diagnosed Date Resolved Date Globus sensation 08/16/2019 09/16/2019 documented as of this encounter (statuses as of 04/21/2023) [place] [id number] History of Past illness Narrative* Problem Noted Date Diagnosed Date Resolved Date Globus sensation 08/16/2019 09/16/2019 documented as of this encounter (statuses as of 05/05/2023) [place] [id number] History of Past illness Narrative* Problem Noted Date Diagnosed Date Resolved Date Globus sensation 08/16/2019 09/16/2019 documented as of this encounter (statuses as of 05/28/2023) [place] [id number] History of Past illness Narrative* Problem Noted Date Diagnosed Date Resolved Date Globus sensation 08/16/2019 09/16/2019 documented as of this encounter (statuses as of 06/01/2023) [facility] Diagnosis SANJAY (generalized anxiety disorder)- Primary Generalized anxiety disorder Panic attack Panic disorder without agoraphobia Seasonal allergic rhinitis, unspecified trigger [facility] Diagnosis Severe anxiety- Primary Mild depression Depressive disorder, not elsewhere classified [facility] noteNo assessment information availableWChildren's [facility] [place] Work Phone: [facility]* Diagnosis Panic disorder without agoraphobia- Primary [facility]* Diagnosis Injury of head, initial encounter- Primary Accident caused by farm tractor, initial encounter [facility] Diagnosis Flank pain- Primary Abdominal pain, unspecified site Acute cystitis with hematuria Acute cystitis Acute pain of left shoulder [facility] Diagnosis Flank pain Abdominal pain, unspecified site Acute pain of left shoulder [facility] Diagnosis Acute pain of left shoulder- Primary [facility] Diagnosis Acute pain of left shoulder [facility] Diagnosis Acute pain of left shoulder- Primary [facility] Diagnosis Acute pain of left shoulder- Primary Traumatic complete tear of left rotator cuff, initial encounter [facility] Diagnosis Panic disorder without agoraphobia- Primary documented in this encounter [facility] note* Diagnosis Panic disorder without agoraphobia- Primary [facility]* Diagnosis Sorethroat- Primary Acute pharyngitis [facility] Diagnosis Fatty liver- Primary Other chronic nonalcoholic liver disease Encounter for lipid screening for cardiovascular disease Screening for lipoid disorders [facility] Diagnosis Well adult exam- Primary Routine general medical examination at a health care facility [place] (nonalcoholic steatohepatitis) Other chronic nonalcoholic liver disease SANJAY (generalized anxiety disorder) Generalized anxiety disorder Panic attack Panic disorder without agoraphobia Screening for diabetes mellitus Elevated LFTs Other abnormal blood chemistry GERD without esophagitis Esophageal reflux Heat intolerance Unspecified effects of heat and light Candidiasis Candidiasis of unspecified site [facility]* Diagnosis Rib pain on left side- Primary Chest pain, unspecified [facility] Diagnosis Atypical chest pain- Primary Other chest pain GERD without esophagitis Esophageal reflux Family history of early CAD Family history of ischemic heart disease [facility] Diagnosis Elevated LFTs Other abnormal blood chemistry [facility] Diagnosis GERD without esophagitis- Primary Esophageal reflux Encounter for immunization Need for other specified prophylactic vaccination against single bacterial disease documented in this encounter [facility] note* Diagnosis Exposure to blood- Primary Personal history of contact with and (suspected) exposure to potentially hazardous body fluids documented in this encounter [facility] note* Diagnosis Rib pain on left side Chest pain, unspecified documented in this encounter [facility] note* Diagnosis Sore throat- Primary Acute pharyngitis Acute otitis media, right Unspecified otitis media documented in this encounter [facility] note* Diagnosis Sore throat- Primary Acute pharyngitis Strep pharyngitis Streptococcal sore throat documented in this encounter [facility] note* Diagnosis Tonsillitis- Primary Acute tonsillitis Pharyngitis, unspecified etiology documented in this encounter [facility] Discharge instructionsAdditional Instructions Please stay away from raccoons. Follow-up with your primary care physician. You received your rabies immunoglobulin and vaccine here in the emergency department. You need to have recurrent rabies vaccines on day 3, day 7, day 14 from when you were bit.[facility] Work Phone: [facility] (n[facility]ative)* Diagnostic Procedure Only (Urgent) - Pending Review Specialty Diagnoses / Procedures Referred By Contac t Referred To Contact XR IMAGING Diagnoses Rib pain on left side Procedures XR RIBS/CHEST 3V AP RIB/OBLS/CXR LEFT RADEX RIBS UNI W/POSTEROANT CH MINIMUM 3 VIEWS Uma Jimenez APRN.CNP [address] [place] [address] Xr Imaging Referral ID Status Reason Start Date Expiration Date Visits Requested Visits Authorized [id number] Pending Review Auto-Generat ed Referral 03/04/2023 04/02/2024 1 1 [facility] for referral (narrative)* Outpatient Procedure (Routine) - Denied Specialty Diagnoses / Procedures Referred By Contac t Referred To Contact [facility] Diagnoses Atypical chest pain Procedures ECG COMPLETE ECG ROUTINE ECG W/LEAST 12 LDS W/I&R Clarence Rodriguez MD [address] [place] [address] [facility] [place] [address] [place] [address] Referral ID Status Reason Start Date Expiration Date V isits Requested Visits Authorized [id number] Denied Auto-Generate d Referral 04/20/2023 04/19/2024 1 0 [facility] for referral (narrative)* Diagnostic Procedure Only (Routine) - Closed Specialty Diagnoses / Procedures Referred By Contac t Referred To Contact US IMAGING Diagnoses Elevated LFTs Procedures US ABD RIGHT UPPER QUADRANT US ABDOMINAL REAL TIME W/IMAGE LIMITED Caryl Green PA-C [address] [place] [address] [place] [address] Referral ID Status Reason Start Date Expiration Date V isits Requested Visits Authorized [id number] Closed Patient Cleared - True Self-Pay required payment collected 12/13/2022 01/12/2024 1 1 [facility] for referral (narrative)* Diagnostic Procedure Only (Urgent) - Denied Specialty Diagnoses / Procedures Referred By Contac t Referred To Contact XR IMAGING Diagnoses Rib pain on left side Procedures XR RIBS/CHEST 3V AP RIB/OBLS/CXR LEFT RADEX RIBS UNI W/POSTEROANT CH MINIMUM 3 VIEWS Uma Jimenez APRN.CNP [address] [place] [address] Xr Imaging [facility] Referral ID Status Reason Start Date Expiration Date Visits Re quested Visits Authorized [id number] Denied 03/04/2023 04/02/2024 1 0 [facility] for referral (narrative)No reason for referral information availableWChildren's Hospital of [place] Work Phone: Reason for visit Narrative* Diagnostic Procedure Only (Routine) - Denied Specialty Diagnoses / Procedures Referred By Contac t Referred To Contact XR IMAGING Diagnoses Acute pain of left shoulder Procedures XR SHOULDER GENERAL 3V OR MORE AP/TRUE AP/OTHER LEFT RADEX SHOULDER COMPLETE MINIMUM 2 VIEWS Anuel Mckenna MD [address] [place] [address] Xr Imaging Referral ID Status Reason Start Date Expiration Date V isits Requested Visits Authorized [id number] Denied Auto-Generate d Referral OON/Self Pay Override 04/28/2022 05/28/2023 1 0 [facility]* Diagnostic Procedure Only (Urgent) - Denied Specialty Diagnoses / Procedures Referred By Contac t Referred To Contact XR IMAGING Diagnoses Rib pain on left side Procedures XR RIBS/CHEST 3V AP RIB/OBLS/CXR LEFT RADEX RIBS UNI W/POSTEROANT CH MINIMUM 3 VIEWS Uma Jimenez APRN.FULFILLMENT ASSOCIATE [address] [place] [address] [place] [address] Referral ID Status Reason Start Date Expiration Date Visits Re quested Visits Authorized [id number] Denied 03/04/2023 04/02/2024 1 0 [facility] Advance Directives No Advanced Directives Records FoundDocuments on File Type Date Recorded 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 FLANK PAIN Chief Complaint Other chest pain Other chest pain Chief Complaint wound check Chief Complaint Admit Date bite February 01, 2025 11:5 0pm Chief Complaint Admit Date bite February 01, 2025 11:5 0pm Rabies vaccination February 05, 2025 1:12 pm Reason for Referral Specialty Diagnoses / Procedures Referred By Contac t Referred To Contact CT IMAGING Diagnoses Flank pain Gross hematuria Procedures CT ABD/PEL WO IVCON CT ABD & PELVIS W/O CONTRAST Nae Domínguez, BLAKE.FULFILLMENT ASSOCIATE [address] [place] [address] Ct Imaging Referral ID Status Reason Start Date Expiration Date V isits Requested Visits Authorized [id number] Closed Auto-Generate d Referral 03/22/2022 04/21/2023 1 1 Specialty Diagnoses / Procedures Referred By Contac t Referred To Contact [facility] Diagnoses Acute pain of left shoulder Procedures CONSULT TO PHYSICAL THERAPY PHYSICAL THERAPY EVALUATION [facility] 45 MINS Nae Domínguez APRN.FULFILLMENT ASSOCIATE [address] [place] [address] [facility] [place] [address] [place] [address] Referral ID Status Reason Start Date Expiration Date Visits Requested Visits Authorized [id number] Pending Review Auto-Generat ed Referral 03/29/2022 03/29/2023 1 1 Specialty Diagnoses / Procedures Referred By Contac t Referred To Contact Orthopedics Diagnoses Acute pain of left shoulder Procedures CONSULT TO ORTHOPAEDICS OFFICE/OUTPATIENT [facility] 60-74 MINUTES Nae Domínguez, APPLICATION PACKAGER.FULFILLMENT ASSOCIATE [address] [place] [address] [place] [address] Referral ID Status Reason Start Date Expiration Date V isits Requested Visits Authorized [id number] Denied PCP Requested Referral 04/08/2022 04/08/2023 1 0 Specialty Diagnoses / Procedures Referred By Contac t Referred To Contact MR IMAGING Diagnoses Acute pain of left shoulder Traumatic complete tear of left rotator cuff, initial encounter Procedures MRI SHOULDER WO IVCON LT MRI ANY JT UPPER EXTREMITY W/O CONTRAST Anuel Reno MD [address] [place] [address] Mr Imaging Referral ID Status Reason Start Date Expiration Date Visits Requested Visits Authorized [id number] Closed Auto-Generated Referral Patient cleared - OON Required Payment Collected OON Notification Letter 04/28/2022 05/28/2023 1 1 Specialty Diagnoses / Procedures Referred By Contac t Referred To Contact XR IMAGING Diagnoses Acute pain of left shoulder Procedures XR SHOULDER GENERAL 3V OR MORE AP/TRUE AP/OTHER LEFT RADEX SHOULDER COMPLETE MINIMUM 2 VIEWS Anuel Mckenna MD [address] [place] [address] Xr Imaging Referral ID Status Reason Start Date Expiration Date V isits Requested Visits Authorized [id number] Denied Auto-Generate d Referral OON/Self Pay Override [...] or prosecute any alcohol or drug abuse patient.[facility] CampusIn the event this information is protected by the Federal Confidentiality of Alcohol and Drug Abuse Patient Records regulations: The Federal rules restrict any use of the information to criminally investigate or prosecute any alcohol or drug abuse patient.[facility] CampusIn the event this information is protected by the Federal Confidentiality of Alcohol and Drug Abuse Patient Records regulations: The Federal rules restrict any use of the information to criminally investigate or prosecute any alcohol or drug abuse patient.[facility] CampusIn the event this information is protected by the Federal Confidentiality of Alcohol and Drug Abuse Patient Records regulations: The Federal rules restrict any use of the information to criminally investigate or prosecute any alcohol or drug abuse patient.[facility] CampusIn the event this information is protected by the Federal Confidentiality of Alcohol and Drug Abuse Patient Records regulations: The Federal rules restrict any use of the information to criminally investigate or prosecute any alcohol or drug abuse patient.[facility] CampusIn the event this information is protected by the Federal Confidentiality of Alcohol and Drug Abuse Patient Records regulations: The Federal rules restrict any use of the information to criminally investigate or prosecute any alcohol or drug abuse patient.[facility] CampusIn the event this information is protected by the Federal Confidentiality of Alcohol and Drug Abuse Patient Records regulations: The Federal rules restrict any use of the information to criminally investigate or prosecute any alcohol or drug abuse patient.[facility] CampusIn the event this information is protected by the Federal Confidentiality of Alcohol and Drug Abuse Patient Records regulations: The Federal rules restrict any use of the information to criminally investigate or prosecute any alcohol or drug abuse patient.[facility] CampusIn the event this information is protected by the Federal Confidentiality of Alcohol and Drug Abuse Patient Records regulations: The Federal rules restrict any use of the information to criminally investigate or prosecute any alcohol or drug abuse patient.[facility] CampusIn the event this information is protected by the Federal Confidentiality of Alcohol and Drug Abuse Patient Records regulations: The Federal rules restrict any use of the information to criminally investigate or prosecute any alcohol or drug abuse patient.[facility] CampusIn the event this information is protected by the Federal Confidentiality of Alcohol and Drug Abuse Patient Records regulations: The Federal rules restrict any use of the information to criminally investigate or prosecute any alcohol or drug abuse patient.[facility] CampusIn the event this information is protected by the Federal Confidentiality of Alcohol and Drug Abuse Patient Records regulations: The Federal rules restrict any use of the information to criminally investigate or prosecute any alcohol or drug abuse patient.[facility] CampusIn the event this information is protected by the Federal Confidentiality of Alcohol and Drug Abuse Patient Records regulations: The Federal rules restrict any use of the information to criminally investigate or prosecute any alcohol or drug abuse patient.[facility] CampusIn the event this information is protected by the Federal Confidentiality of Alcohol and Drug Abuse Patient Records regulations: The Federal rules restrict any use of the information to criminally investigate or prosecute any alcohol or drug abuse patient.[facility] CampusIn the event this information is protected by the Federal Confidentiality of Alcohol and Drug Abuse Patient Records regulations: The Federal rules restrict any use of the information to criminally investigate or prosecute any alcohol or drug abuse patient.[facility] CampusIn the event this information is protected by the Federal Confidentiality of Alcohol and Drug Abuse Patient Records regulations: The Federal rules restrict any use of the information to criminally investigate or prosecute any alcohol or drug abuse patient.[facility] CampusIn the event this information is protected by the Federal Confidentiality of Alcohol and Drug Abuse Patient Records regulations: The Federal rules restrict any use of the information to criminally investigate or prosecute any alcohol or drug abuse patient.[facility] CampusIn the event this information is protected by the Federal Confidentiality of Alcohol and Drug Abuse Patient Records regulations: The Federal rules restrict any use of the information to criminally investigate or prosecute any alcohol or drug abuse patient.[facility] CampusIn the event this information is protected by the Federal Confidentiality of Alcohol and Drug Abuse Patient Records regulations: The Federal rules restrict any use of the information to criminally investigate or prosecute any alcohol or drug abuse patient.[facility] CampusIn the event this information is protected by the Federal Confidentiality of Alcohol and Drug Abuse Patient Records regulations: The Federal rules restrict any use of the information to criminally investigate or prosecute any alcohol or drug abuse patient.[facility] CampusIn the event this information is protected by the Federal Confidentiality of Alcohol and Drug Abuse Patient Records regulations: The Federal rules restrict any use of the information to criminally investigate or prosecute any alcohol or drug abuse patient.[facility] CampusIn the event this information is protected by the Federal Confidentiality of Alcohol and Drug Abuse Patient Records regulations: The Federal rules restrict any use of the information to criminally investigate or prosecute any alcohol or drug abuse patient.[facility] CampusIn the event this information is protected by the Federal Confidentiality of Alcohol and Drug Abuse Patient Records regulations: The Federal rules restrict any use of the information to criminally investigate or prosecute any alcohol or drug abuse patient.[facility] CampusIn the event this information is protected by the Federal Confidentiality of Alcohol and Drug Abuse Patient Records regulations: The Federal rules restrict any use of the information to criminally investigate or prosecute any alcohol or drug abuse patient.[facility] CampusIn the event this information is protected by the Federal Confidentiality of Alcohol and Drug Abuse Patient Records regulations: The Federal rules restrict any use of the information to criminally investigate or prosecute any alcohol or drug abuse patient.[facility] CampusIn the event this information is protected by the Federal Confidentiality of Alcohol and Drug Abuse Patient Records regulations: The Federal rules restrict any use of the information to criminally investigate or prosecute any alcohol or drug abuse patient.[facility] CampusIn the event this information is protected by the Federal Confidentiality of Alcohol and Drug Abuse Patient Records regulations: The Federal rules restrict any use of the information to criminally investigate or prosecute any alcohol or drug abuse patient.[facility] CampusIn the event this information is protected by the Federal Confidentiality of Alcohol and Drug Abuse Patient Records regulations: The Federal rules restrict any use of the information to criminally investigate or prosecute any alcohol or drug abuse patient.[facility] CampusIn the event this information is protected by the Federal Confidentiality of Alcohol and Drug Abuse Patient Records regulations: The Federal rules restrict any use of the information to criminally investigate or prosecute any alcohol or drug abuse patient.[facility] CampusIn the event this information is protected by the Federal Confidentiality of Alcohol and Drug Abuse Patient Records regulations: The Federal rules restrict any use of the information to criminally investigate or prosecute any alcohol or drug abuse patient.[facility] CampusIn the event this information is protected by the Federal Confidentiality of Alcohol and Drug Abuse Patient Records regulations: The Federal rules restrict any use of the information to criminally investigate or prosecute any alcohol or drug abuse patient.[facility] CampusIn the event this information is protected by the Federal Confidentiality of Alcohol and Drug Abuse Patient Records regulations: The Federal rules restrict any use of the information to criminally investigate or prosecute any alcohol or drug abuse patient.[facility] CampusIn the event this information is protected by the Federal Confidentiality of Alcohol and Drug Abuse Patient Records regulations: The Federal rules restrict any use of the information to criminally investigate or prosecute any alcohol or drug abuse patient.[facility] CampusIn the event this information is protected by the Federal Confidentiality of Alcohol and Drug Abuse Patient Records regulations: The Federal rules restrict any use of the information to criminally investigate or prosecute any alcohol or drug abuse patient.[facility] CampusIn the event this information is protected by the Federal Confidentiality of Alcohol and Drug Abuse Patient Records regulations: The Federal rules restrict any use of the information to criminally investigate or prosecute any alcohol or drug abuse patient.[facility] CampusIn the event this information is protected by the Federal Confidentiality of Alcohol and Drug Abuse Patient Records regulations: The Federal rules restrict any use of the information to criminally investigate or prosecute any alcohol or drug abuse patient.[facility] CampusIn the event this information is protected by the Federal Confidentiality of Alcohol and Drug Abuse Patient Records regulations: The Federal rules restrict any use of the information to criminally investigate or prosecute any alcohol or drug abuse patient.[facility] CampusIn the event this information is protected by the Federal Confidentiality of Alcohol and Drug Abuse Patient Records regulations: The Federal rules restrict any use of the information to criminally investigate or prosecute any alcohol or drug abuse patient.[facility] CampusIn the event this information is protected by the Federal Confidentiality of Alcohol and Drug Abuse Patient Records regulations: The Federal rules restrict any use of the information to criminally investigate or prosecute any alcohol or drug abuse patient.[facility] CampusIn the event this information is protected by the Federal Confidentiality of Alcohol and Drug Abuse Patient Records regulations: The Federal rules restrict any use of the information to criminally investigate or prosecute any alcohol or drug abuse patient.[facility] CampusIn the event this information is protected by the Federal Confidentiality of Alcohol and Drug Abuse Patient Records regulations: The Federal rules restrict any use of the information to criminally investigate or prosecute any alcohol or drug abuse patient.[facility] CampusIn the event this information is protected by the Federal Confidentiality of Alcohol and Drug Abuse Patient Records regulations: The Federal rules restrict any use of the information to criminally investigate or prosecute any alcohol or drug abuse patient.[facility] CampusIn the event this information is protected by the Federal Confidentiality of Alcohol and Drug Abuse Patient Records regulations: The Federal rules restrict any use of the information to criminally investigate or prosecute any alcohol or drug abuse patient.[facility] CampusIn the event this information is protected by the Federal Confidentiality of Alcohol and Drug Abuse Patient Records regulations: The Federal rules restrict any use of the information to criminally investigate or prosecute any alcohol or drug abuse patient.[facility] CampusIn the event this information is protected by the Federal Confidentiality of Alcohol and Drug Abuse Patient Records regulations: The Federal rules restrict any use of the information to criminally investigate or prosecute any alcohol or drug abuse patient.[facility] CampusIn the event this information is protected by the Federal Confidentiality of Alcohol and Drug Abuse Patient Records regulations: The Federal rules restrict any use of the information to criminally investigate or prosecute any alcohol or drug abuse patient.[facility] CampusIn the event this information is protected by the Federal Confidentiality of Alcohol and Drug Abuse Patient Records regulations: The Federal rules restrict any use of the information to criminally investigate or prosecute any alcohol or drug abuse patient.[facility] Reason for Visit (unrecogniz ed section and content) Reason Comments Follow Up Specialty Diagnoses / Procedures Referred By Mario robbins Referred To Contact FAMILY MEDICINE Diagnoses gerd/chest pain follow up Procedures OFFICE/OUTPATIENT ESTABLISHED MOD MDM 30-39 MIN Clarence Piedra MD [address] [place] [address] [facility] [address] [place] [address] Referral ID Status Reason Start Date Expiration Date Visits Requested Visits Authorized [id number] Closed Financial Clearance Required - OON Payor OON Notification Letter Patient cleared - OON Required Payment Collected 04/20/2023 07/19/2023 1 1 Specialty Diagnoses / Procedures Referred By Mario robbins Referred To Contact ADULT PSYCHIATRY Diagnoses Virtual Procedures Virtual Tayler Gonsalez, APPLICATION PACKAGER.FULFILLMENT ASSOCIATE [address] [place] [address] [facility] Adult [facility] [address] [place] [address] Referral ID Status Reason Start Date Expiration Date Visits Requested Visits Authorized [id number] Closed Financial Clearance Required - OON Payor OON Notification Letter Patient cleared - OON Required Payment Collected 10/17/2022 1 1 Reason Onset Date Comments Refill Request 12/02/2021 Reason Comments Medication Question Reason Comments Recheck medication Specialty Diagnoses / Procedures Referred By Mario robbins Referred To Contact Family Practice / FAMILY MEDICINE Diagnoses Encounter for follow-up examination after completed treatment for conditions other than malignant neoplasm Renewing medication Procedures OFFICE/OUTPATIENT ESTABLISHED MOD MDM 30-39 MIN MYC OFFICE VISIT Self Caryl Green PA-C [address] [place] [address] Referral ID Status Reason Start Date Expiration Date Visits Requested Visits Authorized [id number] Closed Financial Clearance Required - OON Payor Clearance Not Met - Admin/Manufacturing Applications Engineer/D irector Advise to Postpone/Resched ule or Not Proceed OON Notification Letter 12/15/2021 07/23/2022 1 1 Reason Comments Patient Update Medication Problem Reason Comments Patient Update Reason Comments Consult Initial [facility] Pt Outr each Reason Comments Consult [facility] Pt Outreach F/U Reason Comments Patient Question Reason Comments Consult [facility] Calling Reason Comments Consult [facility] Assessment Virt ual Specialty Diagnoses / Procedures Referred By Mario robbins Referred To Contact ADULT PSYCHOLOGY Diagnoses anxiety/ eval Procedures REFERRAL TO CC FINANCIAL COUNSELOR PSYCHIATRIC DIAGNOSTIC EVALUATION 1st eval Clarence Rodriguez MD [address] [place] [address] Ps[facility] Adult [place] [id number] [address] Referral ID Status Reason Start Date Expiration Date Visits Requested Visits Authorized [id number] Closed Financial Clearance Required - OON Payor OON Notification Letter Patient cleared - OON Required Payment Collected 12/27/2021 03/27/2022 1 1 Reason Comments New Patient Evaluation Specialty Diagnoses / Procedures Referred By Contac t Referred To Contact ADULT PSYCHOLOGY Diagnoses medication Procedures REFERRAL TO [facility] FINANCIAL COUNSELOR EST patient Grey Barkley [address]W [address] [place] [address] Psyl Adult [facility] [address] [address] Referral ID Status Reason Start Date Expiration Date Visits Requested Visits Authorized [id number] Closed Financial Clearance Required - OON Payor OON Notification Letter Patient Cleared Patient chose to pay or Auth obtained after CCN denied 01/28/2022 04/28/2022 1 1 Reason Comments left shoulder pain Flipped mower over 1 hour ago Reason Comments ER F/U [facility] ER follow up 02/22 3 dx: mower rolled over on him Specialty Diagnoses / Procedures Referred By Mario t Referred To Contact FAMILY MEDICINE Diagnoses ER f/u Procedures consult and treat [facility], [facility] [address] [address] [place] [phone] Referral ID Status Reason Start Date Expiration Date V isits Requested Visits Authorized [id number] Denied OON/Self Pay Override 03/22/2022 06/20/2022 1 0 Reason Comments Results Reason Comments PT Eval Specialty Diagnoses / Procedures Referred By Gillianac t Referred To Contact [facility] Diagnoses Acute pain of left shoulder Procedures CONSULT TO PHYSICAL THERAPY PHYSICAL THERAPY EVALUATION HIGH COMPLEX 45 MINS Nae Domínguez APRN.FULFILLMENT ASSOCIATE [address] [place] [address] [facility] [place] [address] [place] [address] Referral ID Status Reason Start Date Expiration Date V isits Requested Visits Authorized [id number] Closed Financial Clearance Required - OON Payor Clearance not met - patient not scheduled & unable to contact patient Patient Cleared - True Self-Pay required payment collected 03/29/2022 03/29/2023 1 1 Reason Comments Orders Specialty Diagnoses / Procedures Referred By Mario t Referred To Contact MR IMAGING Diagnoses Acute pain of left shoulder Traumatic complete tear of left rotator cuff, initial encounter Procedures MRI SHOULDER WO IVCON LT MRI ANY JT UPPER EXTREMITY W/O CONTRAST MATRL Anuel Mckenna MD [address] [place] [address] Mr Imaging Referral ID Status Reason Start Date Expiration Date Visits Requested Visits Authorized [id number] Closed Auto-Generated Referral Patient cleared - OON Required Payment Collected OON Notification Letter 04/28/2022 05/28/2023 1 1 Reason Comments New Pain Specialty Diagnoses / Procedures Referred By Contac t Referred To Contact ORTHOPAEDIC SURGERY Diagnoses Torn Rotator Cuff Procedures Office Visit Anuel Mckenna MD [address] [facility] [place] [address] [facility] [address] [place] [address] Referral ID Status Reason Start Date Expiration Date Visits Requested Visits Authorized [id number] Closed Financial Clearance Required - OON Payor OON Notification Letter Patient cleared - OON Required Payment Collected 04/11/2022 07/10/2022 1 1 Reason Onset Date Comments Refill Request 06/24/2022 Specialty Diagnoses / Procedures Referred By Contac t Referred To Contact Psychiatry / ADULT PSYCHIATRY Diagnoses NEW PATIENT Procedures VIDEO PSYC/PSYL NEW Filippo, Grey, MANSOOR [address] [place] [address] Tayler Gonsalez, APPLICATION PACKAGER.FULFILLMENT ASSOCIATE [address] [place] [address] Referral ID Status Reason Start Date Expiration Date Visits Requested Visits Authorized [id number] Closed Financial Clearance Required - OON Payor [...] COUNSELOR TEST, TREAT, CONSULT Caryl Green PA-C [address] [place] [address] [facility] [address] [place] [address] Referral ID Status Reason Start Date Expiration Date V isits Requested Visits Authorized [id number] Closed Financial Clearance Required - OON Payor Patient cleared - OON Required Payment Collected 02/15/2023 05/16/2023 1 1 Reason Comments Pain (Shoulder Pain) left shoulder pain into chest x 2 days, comes and goes Reason Comments Pain Specialty Diagnoses / Procedures Referred By Contac t Referred To Contact [facility] DEPARTMENT Diagnoses GERD ISSUES Procedures REFERRAL TO [facility] FINANCIAL COUNSELOR [facility] 4C Clarence Rodriguez MD [address] [place] [address] [facility] [place] [address] Referral ID Status Reason Start Date Expiration Date Visits Requested Visits Authorized [id number] Closed Financial Clearance Required - OON Payor OON Notification Letter Patient cleared - OON Required Payment Collected 04/11/2023 07/10/2023 1 1 Reason Comments Radiology US Specialty Diagnoses / Procedures Referred By Contac t Referred To Contact US IMAGING Diagnoses Elevated LFTs Procedures US ABD RIGHT UPPER QUADRANT US ABDOMINAL REAL TIME W/IMAGE LIMITED Caryl Green PA-C [address] [place] [address] [place] [address] Referral ID Status Reason Start Date Expiration Date V isits Requested Visits Authorized [id number] Closed Patient Cleared - True Self-Pay required [...] Care Teams (unrecognized sec tion and content) Welfare Director Relationship Specialty Start Date End Date Clarence Rodriguez MD [address] [place], [place] [address] PCP - General Family Practice 10/03/19 Welfare Director Relationship Specialty Start Date End Date Clarence Rodriguez MD [address] [facility] [place] [address] PCP - General Family Practice 10/03/19 Welfare Director Relationship Specialty Start Date End Date Clarence Rodriguez MD [address] [place] [address], [place] [address] PCP - General Family Practice 10/03/19 Welfare Director Relationship Specialty Start Date End Date Clarence Rodriguez MD [address] [place] [address], [place] [address] PCP - General Family Practice 10/03/19 Welfare Director Relationship Specialty Start Date End Date Clarence Rodriguez MD [address] [place] [address], [place] [address] PCP - General Family Practice 10/03/19 Welfare Director Relationship Specialty Start Date End Date Clarence Rodriguez MD [address] [place] [address], [place] [address] PCP - General Family Practice 10/03/19 Welfare Director Relationship Specialty Start Date End Date Clarence Rodriguez MD [address] [place] [address], [place] [address] PCP - General Family Practice 10/03/19 Welfare Director Relationship Specialty Start Date End Date Clarence Rodriguez MD [address] [place] [address], [place] [address] PCP - General Family Practice 10/03/19 Welfare Director Relationship Specialty Start Date End Date Clarence Rodriguez MD [address] [place] [address], [place] [address] PCP - General Family Practice 10/03/19 Welfare Director Relationship Specialty Start Date End Date Clarence Rodriguez MD [address] [place] [address], [place] [address] PCP - General Family Practice 10/03/19 Welfare Director Relationship Specialty Start Date End Date Clarence Rodriguez MD [facility] [place] [address] PCP - General Family Practice 10/03/19 Welfare Director Relationship Specialty Start Date End Date Clarence Rodriguez MD [address] [place] [address], [place] [address] PCP - General Family Practice 10/03/19 Welfare Director Relationship Specialty Start Date End Date Clarence Rodriguez MD [address] [place] [address], [place] [address] PCP - General Family Medicine 10/03/19 Welfare Director Relationship Specialty Start Date End Date Clarence Rodriguez MD [address] [place] [address], [place] [address] PCP - General Family Medicine 10/03/19 Welfare Director Relationship Specialty Start Date End Date Clarence Rodriguez MD [address] [place] [address], [place] [address] PCP - General Family Medicine 10/03/19 Welfare Director Relationship Specialty Start Date End Date Clarence Rodriguez MD [address] [place] [address], [place] [address] PCP - General Family Medicine 10/03/19 Welfare Director Relationship Specialty Start Date End Date Clarence Rodriguez MD [address] [place] [address], [place] [address] PCP - General Family Medicine 10/03/19 Welfare Director Relationship Specialty Start Date End Date Clarence Rodriguez MD [address] [place] [address], [place] [address] PCP - General Family Medicine 10/03/19 Welfare Director Relationship Specialty Start Date End Date Clarence Rodriguez MD [address] [place] [address], [place] [address] PCP - General Family Medicine 10/03/19 Welfare Director Relationship Specialty Start Date End Date Clarence Rodriguez MD [address] [place] [address] PCP - General Family Medicine 10/03/19 Welfare Director Relationship Specialty Start Date End Date Clarence Rodriguez MD [address] [place] [address] PCP - General Family Medicine 10/03/19 Welfare Director Relationship Specialty Start Date End Date Clarence Rodriguez MD [address] [place] [address] PCP - General Family Medicine 10/03/19 Welfare Director Relationship Specialty Start Date End Date Clarence Rodriguez MD [address] [place] [address] PCP - General Family Medicine 10/03/19 Welfare Director Relationship Specialty [place] [address] [place] [address] PCP - General Family Medicine 10/03/19 Welfare Director Relationship Specialty Start Date End Date Clarence Rodriguez MD [address] [place] [address] PCP - General Family Medicine 10/03/19 Welfare Director Relationship Specialty Start Date End Date Clarence Rodriguez MD [address] [place] [address] PCP - General Family Medicine 10/03/19 Welfare Director Relationship Specialty Start Date End Date Clarence Rodriguez MD [address] [place] [address] PCP - General Family Medicine 10/03/19 Welfare Director Relationship Specialty Start Date End Date Clarence Rodriguez MD [address] [place] [address] PCP - General Family Medicine 10/03/19 Welfare Director Relationship Specialty Start Date End Date Clarence Rodriguez MD [address] [place] [address] PCP - General Family Medicine 10/03/19 Team Status: Active Member Role Status Dates Dr. Kaleb Junior MD Family Provider Active Caryl LONGORIA PA Primary Care Provider Active Team Status: Active Member Role Status Dates SWATI Magaña Primary Care Provider Active Dr. Clarence Rodriguez MD Referring Provider, Other Prov ider Active Dr. Segun Maciel MD Attending Provider Active Team Status: Inactive Member Role Status Dates SWATI Magaña Primary Care Provider Active Dr. Clarence Rordiguez MD Attending Provider, Referring Provider Active Welfare Director Relationship Specialty Start Date End Date Clarence Rodriguez MD [address] [place] [address] PCP - General Family Medicine 10/03/19 Welfare Director Relationship Specialty Start Date End Date Clarence Rodriguez MD [address] [place] [address] PCP - General Family Medicine 10/03/19 Team Status: Inactive Member Role Status Dates Caryl LONGORIA PA Primary Care Provider Active Dr. Richelle Richards MD Emergency Provider Active Welfare Director Relationship Specialty Start Date End Date Clarence Rodriguez MD [address] [place] [address] PCP - General Family Medicine 10/03/19 Welfare Director Relationship Specialty Start Date End Date Clarence Rodriguez MD [address] [place] [address] PCP - General Family Medicine 10/03/19 Welfare Director Relationship Specialty Start Date End Date Clarence Rodriguez MD [address] [place] [address] PCP - General Family Medicine 10/03/19 Blanca Olivares APRN.FULFILLMENT ASSOCIATE [address] [place] [id number] Special Projects Coordinator Family Medicine 06/29/24 Caryl Green PA-C [facility] [place] [address] Special Projects Coordinator Family Medicine 06/29/24 Welfare Director Relationship Specialty Start Date End Date Clarence Rodriguez MD [address] [place] [address] PCP - General Family Medicine 10/03/19 Blanca Olivares APRN.FULFILLMENT ASSOCIATE [address] [place] [id number] Special Projects Coordinator Family Medicine 06/29/24 Caryl Green PA-C [address] [place] [address] Special Projects Coordinator Family Medicine 06/29/24 Team Status: Active Member Role/Relationship Status Dates SWATI Magaña Primary Care Provider Active Team Status: Inactive Member Role/Relationship Status Dates SWATI Magaña Primary Care Provider Active Start: February 01, 2025 End: 2025 Dr. Jak Bates , DO Emergency Provider Activ e Start: February 01, 2025 End: 2025 Team Status: Inactive Member Role/Relationship Status Dates Caryl LONGORIA, PA Primary Care Provider Active Start: February 05, 2025 End: February 05, 2025 Dr. Jak Bates DO Emergency Provider Activ e Start: February 05, 2025 End: February 05, 2025 Goals (unrecognized section and content) Goals may [...] ized section and content) DATE CREATED AUTHOR 08/07/2024 [facility] DATE CREATED AUTHOR 'S JOSSELYN MCLEOD 02/05/2025 [facility] FOR RECORDS PERTAINING TO PATIENTS WHO ARE [...] BE BASED ON THE PRIMARY CLINICAL RECORDS. [email or web address] provides no warranty or guarantee of the accuracy or completeness of information in this document.
--- OUTSIDE RECORDS SUMMARY | 2025-02-05 23:04 | XMS RPT_ITS | CCD ---
Author Organization [facility] Care Team Providers Care Inventory Control Analyst Name Role Phone Clarence Rodriguez MD Primary Care Provider SWATI Hilton Primary Care Provider Dr. Clarence Rodriguez Referring Provider Dr. Clarence Rodriguez Other Provider Dr. Segun Maciel Attending Provider Clarence Rodriguez MD Primary Care Provider Clarence Rodriguez MD Primary Care Provider Clarence Rodriguez MD Primary Care Provider [phone] Blanca Olivares APRN.CNP Unavailable Caryl Green PA-C Unavailable [phone] CLARENCE RODRIGUEZ Attending Unavailable CLARENCE RODRIGUEZ Primary [...] on above: Take 1 capsule by mo [facility] twice daily for 10 days. amoxicillin [...] 12:00am Start: 07-22-2023 take 1 capsule by [facility] once daily at bedtime fluvoxa[facility]INE ER [...] on above: Take 1 capsule by mo [facility] daily before breakfast. 1/2 hr before meal. 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 Print Language: Georgian Disposition Disposition: Home, Self Care Discharge Date/Time: 02/02/25 04:25 What to do if you have Problems For any increased pain, shortness of breath, bleeding, nausea or vomiting, chest pain, or any unexpected problems, contact your Primary Care Provider. Call [facility] ([phone]) or report to the closest Emergency Room. Call 911 if necessary. 02/02/25 [id number] Cosigner Signature (if applicable): CC: SWATI Zhao Signed Normal [facility] CNOVon 08-02-2024 CNOV Office Visit (FAMPWS ) ALDAIR YEPEZ ([id number]) 1995 M Date Time Provider Department 08/02/24 10:20 AM CL[facility]IG[facility] During your visit today, we recorded the [...] Relation Age of Onset Heart Maternal Grandfather [place] Hypertension Mother None Father Heart Maternal Uncle [...] Prescri (more content not included)... Normal [facility] CNOVon 07-08-2024 CNOV Office Visit (WSTR ) ALDAIR YEPEZ ([id number]) 1995 M Date Time Provider Department 07/08/24 7:30 AM CLARENCE GILES [facility] During your visit today, we [...] Relation Age of Onset Heart Maternal Grandfather [place] Hypertension Mother None Father Heart Maternal Uncle [...] is (more content not included)... Normal [facility] STREP A MOLECULAR (POC)on Interpretation and review of laboratory results Abnormal [facility] Procedural Control Valid [facility] Parris A (POCT) Positive Abnormal Negative [facility] CNOVon 05-29-2024 CNOV Office Visit (UCWSTR ) ALDAIR YEPEZ ([id number]) 1995 M Date Time Provider Department 05/29/24 2:45 PM CASE GARRETT [facility] During your visit today, we recorded the following information about you: Temperature Pulse Respiration Blood pressure 97.8 degrees 80/minute 16/minute 112/78 Weight 133.9 kg Case Garrett APRN.DISTRIBUTION DRIVER 05/29/2024 3:04 PM Signed This note was created using Bitrockr. Subjective Aldair Yepez is a 29 year [...] Date Reviewed: 05/29/2024 Reviewed by: Case Garrett APRN.DISTRIBUTION DRIVER - Fully Assessed Reason for Visit: Ear Pain [817] Cmt: Bilateral ear pain and ST x 2 days Primary Visit Diagnosis:Sore throat [J02.9] Other Visit Diagnosis:Acute otitis media, right [H66.91] Order(s):STREP A MOLECULAR (POC) [5060662] Order #: [id number]. #:[id number] amoxicillin (AMOXIL) 875 mg tabletTake 1 [...] by CASE GARRETT on 05/29/24 Normal [facility] STREP A MOLECULAR (POC)on Procedural Control Valid [facility] Strep A (POCT) Negative Negative [facility] CNOVon 11-13-2023 CNOV Office Visit (UCWSTR ) ALDAIR YEPEZ ([id number]) 1995 M Date Time Provider Department 11/13/23 6:00 PM ZULEYMA ALDANA [facility] During your visit today, we recorded the following information about you: Temperature Pulse Respiration Blood pressure 98 degrees 77/minute 21/minute 124/68 Weight 134.1 kg Zuleyma Aldana APRN.DISTRIBUTION DRIVER 11/13/2023 6:24 PM Signed Subjective HPI Aldair [...] Relation Age of Onset Heart Maternal Grandfather [place] Hypertension Mother None Father Heart Maternal Uncle [...] go to ER as advised. Zuleyma Aldana APRN.DISTRIBUTION DRIVER Allergies As of Date: 11/13/2023 (No Known [...] (nonalcoholic (more content not included)... Normal [facility] CNOVon 08-09-2023 CNOV Office Visit (FAMPWS ) ALDAIR YEPEZ ([id number]) 1995 M Date Time Provider Department 08/09/23 [...] and a maternal grandfather who of a NV in either his 40-50's. Past medical history, [...] Relation Age of Onset Heart Maternal Grandfather [place] Hypertension Mother None Father Heart Maternal Uncle [...] well-hydrated (more content not included)... Normal [facility] XR RIBS/CHEST 3V AP RIB/OBLS /CXR LEFTon 03-04-2023 [facility] XR Ribs - left Views and Anai st PAon 03-04-2023 IMPRESSION: No evide nce of acute left rib fracture. Computational Mathematician: RICARDO Transcribe Date/Time: Mar 04 2023 10:43A Dictated by : ELINA TORRES MD This examination was interpreted and the report reviewed and electronically signed by: ELINA TORRES MD on Mar 04 2023 10:45AM [facility] DIVISION OF RADIOLOGY * * [...] lungs appear normal. DIVISION OF RADIOLOGY Provider, [facility] - 03/04/2023 * * *Final Report* [...] No evidence of acute left rib fracture. Computational Mathematician: RICARDO Transcribe Date/Time: Mar 04 2023 10:43A Dictated by : ELINA TORRES MD This examination was interpreted and the report reviewed and electronically signed by: ELINA TORRES MD on Mar 04 2023 10:45AM [facility] Radiology Study observation (narrative) [facility] XR Ribs - left Views and Anai st PAOrdered By: Ccf Provider on 03-04-2023 [facility] HbA1c (Bld)on 03-02-2023 Average glucose Estimated from glycated hemoglobin (Bld) [Mass/Vol] 108 mg/dL [facility] HbA1c (Bld) [Mass fraction] 5.4 % 4.3 - 5.6 % [facility] Hepatic function 2000 panelo n 03-02-2023 Albumin [Mass/Vol] 4.3 g/dL 3.9 - 4.9 g/dL [facility] ALP [Catalytic activity/Vol] 71 U/L 38 - 113 U/L [facility] ALT [Catalytic activity/Vol] 73 U/L High 10 - 54 U/L [facility] AST [Catalytic activity/Vol] 51 U/L High 14 - 40 U/L [facility] Bilirubin [Mass/Vol] 0.4 mg/dL 0.2 - 1.3 mg/dL [facility] Bilirubin.conjuga mary alice [Mass/Vol] <0.2 mg/dL [facility] Protein [Mass/Vol] 6.8 g/dL 6.3 - 8.0 g/dL [facility] LIPID PANEL, NONFASTINGon Cholesterol [Mass/Vol] 171 mg/dL <200 mg/dL [facility] HDL Cholesterol, Nonfasting 39 mg/dL Low >39 mg/dL [facility] LDL Cholesterol, Nonfasting 103 mg/dL High <100 mg/dL [facility] LDL/HDL Ratio, Nonfasting 2.64 mg/dL High <2.54 mg/dL [facility] Non HDL Cholesterol, Nonfasting 132 mg/dL High <130 mg/dL [facility] Total Chol/HDL Ratio, Nonfasting 4.38 mg/dL <5.10 mg/dL [facility] Triglycerides, Nonfasting 144 mg/dL <150 mg/dL [facility] VLDL Cholesterol, Nonfasting 29 mg/dL <30 mg/dL [facility] TSH BLDon 03-02-2023 TSH Qn 2.130 m[IU]/L 0.270 - 4.200 mIU/L [facility] CBC W Auto Differential pane l (Bld)on 03-01-2023 Basophils (Bld) [#/Vol] 0.08 10*3/uL <0.11 k/uL [facility] Basophils/100 WBC (Bld) 1.0 % [facility] Differential cell count method Nom (Bld) Auto [facility] Eosinophils (Bld) [#/Vol] 0.33 10*3/uL <0.46 k/uL [facility] Eosinophils/100 WBC (Bld) 4.3 % [facility] Erythrocyte distribution width (RBC) [Ratio] 13.7 % 11.5 - 15.0 % [facility] Hematocrit (Bld) [Volume fraction] 46.8 % 39.0 - 51.0 % [facility] Hemoglobin (Bld) [Mass/Vol] 15.3 g/dL 13.0 - 17.0 g/dL [facility] Immature granulocytes (Bld) [#/Vol] <0.10 k/uL [facility] Immature granulocytes/100 WBC (Bld) 0.3 % [facility] Lymphocytes (Bld) [#/Vol] 2.17 10*3/uL 1.00 - 4.00 k/uL [facility] Lymphocytes/100 WBC (Bld) 28.1 % [facility] MCH (RBC) [Entitic mass] 28.0 pg 26.0 - 34.0 pg [facility] MCHC (RBC) [Mass/Vol] 32.7 g/dL 30.5 - 36.0 g/dL [facility] MCV (RBC) [Entitic vol] 85.7 fL 80.0 - 100.0 fL [facility] Monocytes (Bld) [#/Vol] 0.76 10*3/uL <0.87 k/uL [facility] Monocytes/100 WBC (Bld) 9.8 % [facility] Neutrophils (Bld) [#/Vol] 4.37 10*3/uL 1.45 - 7.50 k/uL [facility] Neutrophils/100 WBC (Bld) 56.5 % [facility] Nucleated RBC (Bld) [#/Vol] <0.01 k/uL [facility] Nucleated RBC/100 WBC (Bld) [Ratio] 0.0 /100 WBC [facility] Platelet mean volume (Bld) [Entitic vol] 11.4 fL 9.0 - 12.7 fL [facility] Platelets (Bld) [#/Vol] 247 10*3/uL 150 - 400 k/uL [facility] RBC (Bld) [#/Vol] 5.46 10*6/uL 4.20 - 6.0 0 m/uL [facility] WBC (Bld) [#/Vol] 7.73 10*3/uL 3.70 - 11. 00 k/uL [facility] US ABD RIGHT UPPER QUADRANTo n 12-20-2022 [facility] STREP A MOLECULAR (POC)on Procedural Control Valid [facility] Strep A (POCT) Positive Abnormal Negative [facility] No Panel Informationon 05-09 [facility] XR SHOULDER GENERAL 3V OR MO RE AP/TRUE AP/OTHER LEFTon 04-28-2022 [facility] Absolute lymphocyte counton 03-22-2022 Lymphocytes Auto (Unsp spec) [#/Vol] 1.76 10*3/uL 0.83-4.51 [facility] Work Phone: Basophil percentageon 2021 Basophils/100 WBC (Bld) 0.6 % 0-1 [facility] Work Phone: Bilirubin [Mass/Vol] 0.40 mg/dL 0.20-1.00 [facility] Work Phone: Comment on above: For patients on eltr ombopag therapy, use of Dimension [place] TBIL is not recommended. Chloride [Moles/Vol] 105 mmol/L 98-107 [facility] Work Phone: Eosinophils/100 WBC (Bld) 8.4 % 0-5 [facility] Work Phone: Glucose [Mass/Vol] 94 mg/dL 74-106 [facility] Work Phone: Neutrophils (Bld) [#/Vol] 5.9 10*3/uL 2.0-7.7 [facility] Work Phone: Neutrophils/100 WBC (Bld) 61.0 % 47-70 [facility] Work Phone: Potassium [Moles/Vol] 4.2 mmol/L 3.5-5.1 [facility] Work Phone: Protein [Mass/Vol] 7.8 g/dL 6.4-8.2 [facility] Work Phone: [phone] Sodium [Moles/Vol] 140 mmol/L 136-145 [facility] Work Phone: [phone] WBC (Bld) [#/Vol] 9.6 10*3/uL 4.4-11.0 [facility] Work Phone: Blood erythrocytes count (nu mber/volume)on 03-22-2022 RBC (Bld) [#/Vol] 4.89 10*6/uL 4.6-6.2 [facility] Work Phone: [phone] Blood hemoglobin measurement (mass/volume)on 03-22-2022 Hemoglobin (Bld) [Mass/Vol] 14.5 g/dL 13.0-16.5 [facility] Work Phone: [phone] Blood lymphocytes/100 leukoc yteson 03-22-2022 Lymphocytes/100 WBC (Bld) 18.3 % 19-41 [facility] Work Phone: [phone] Blood monocytes/100 leukocyt eson 03-22-2022 Monocytes/100 WBC (Bld) 11.3 % 0-10 [facility] Work Phone: [phone] Blood platelet mean volumeon 03-22-2022 Platelet mean volume (Bld) [Entitic vol] 10.2 fL 6.2-12.0 [facility] Work Phone: [phone] Determination of erythrocyte mean corpuscular volume (MCV)on 03-22-2022 MCV (RBC) [Entitic vol] 90.6 fL 80-94 [facility] Work Phone: [phone] Hematocrit Auto (Bld) [Volum e fraction]on 03-22-2022 Hematocrit (Bld) [Volume fraction] 44.3 % 40-54 [facility] Work Phone: [phone] Laboratory - Chemistry and C hemistry - challengeon 03-22-2022 ALP [Catalytic activity/Vol] 96 U/L 45-117 [facility] Work Phone: ALT [Catalytic activity/Vol] 77 U/L 16-61 [facility] Work Phone: [phone] CO2 [Moles/Vol] 28.0 mmol/L 21.0-32.0 [facility] Work Phone: [phone] Globulin (S) [Mass/Vol] 4.2 g/dL 2.2-4.2 [facility] Work Phone: [phone] Urea nitrogen/Creatini ne [Mass ratio] 12.6 mg/mg 10-20 [facility] Work Phone: [phone] Laboratory - Hematology and Cell countson 03-22-2022 Erythrocyte distribution width (RBC) [Entitic vol] 45.1 fL 35.1-43.9 [facility] Work Phone: [phone] Erythrocyte distribution width (RBC) [Ratio] 13.5 % 11.6-14.6 [facility] Work Phone: [phone] Immature granulocytes/100 WBC (Bld) 0.400 % 0.0-0.9 [facility] Work Phone: [phone] Comment on above: IG% - Immature Granu locytes (promyelocytes, myelocytes and metamyelocytes) > 1% indicates that a LEFT SHIFT is Present. MCH (RBC) [Entitic mass] 29.7 pg 27.0-32.0 [facility] Work Phone: [phone] Nucleated RBC/100 WBC (Bld) [Ratio] 0 % 0-5 [facility] Work Phone: [phone] MCHC Auto (RBC) [Mass/Vol]on 03-22-2022 MCHC (RBC) [Mass/Vol] 32.7 g/dL 32-36 [facility] Work Phone: [phone] No Panel Informationon 03-22 Estimated GFR (MDRD) Amer 111 mL/min >60 [facility] Work Phone: [phone] Comment on above: GFR Calc Estimated GFR (MDRD) Non-Af Amer 92 mL/min >60 [facility] Work Phone: [phone] Comment on above: Non- GFR Calc Platelets bldon 03-22-2022 Platelets (Bld) [#/Vol] 262 10*3/uL 150-450 [facility] Work Phone: [phone] Serum or plasma albumin benigno urement (mass/volume)on 03-22-2022 Albumin [Mass/Vol] 3.6 g/dL 3.2-5.0 [facility] Work Phone: [phone] Serum or plasma albumin/glob ulin mass ratioon 03-22-2022 Albumin/Globulin [Mass ratio] 0.9 {ratio} 0.9-2.4 [facility] Work Phone: [phone] Serum or plasma calcium benigno urement (mass/volume)on 03-22-2022 Calcium [Mass/Vol] 9.0 mg/dL 8.5-10.1 [facility] Work Phone: [phone] Serum or plasma creatinine m easurement (mass/volume)on 03-22-2022 Creatinine [Mass/Vol] 1.03 mg/dL 0.70-1.30 [facility] Work Phone: Comment on above: The validity of the calculated GFR & GFRAA in patients over 70 years has not been determined. Clinical correlation is essential. Serum or plasma urea nitroge n measurement (mass/volume)on 03-22-2022 Urea nitrogen [Mass/Vol] 13 mg/dL 7-18 [facility] Work Phone: [phone] Thin prep Papanicolaou smear with manual screeningon 03-22-2022 Thin prep Papanicolaou smear with manual screening 38 U/L 15-37 [facility] Work Phone: [phone] Thin prep Papanicolaou smear with manual screening 7 5-15 [facility] Work Phone: [phone] UA DIP, URINE (POC)on 2021 BILIRUBIN UA (POCT) Negative Negative [facility] CLARITY UA (POCT) Cloudy [facility] COLOR UA (POCT) Kelly [facility] GLUCOSE UA (POCT) Negative Negative mg/dL [facility] HEMOGLOBIN/BLOOD UA (POCT) Large Abnormal Negative [facility] KETONE UA (POCT) Negative Negative mg/dL [facility] LEUKOCYTES UA (POCT) Large Abnormal Negative [facility] NITRITE UA (POCT) Positive Abnormal Negative [facility] PH UA (POCT) 5.5 4.5 - 8.0 [facility] Protein Ql (U) 100 mg/dL Abnormal Negative mg/dL [facility] SPECIFIC GRAVITY UA (POCT) >=1.030 1.005 - 1.030 [facility] UROBILINOGEN UA (POCT) 0.2 E.U./dL Normal E.U./dL [facility] Vital Signs Date Time Vital Sign Value Performing Clinician Facility 02-05-2025 14:01040 Body weight 147.55 kg Caryl LONGORIA Work Phone: [phone] [place] [address] 02-05-2025 13:120400 Body height 187.96 cm Caryl LONGORIA Work Phone: [phone] [place] [address] 02-05-2025 13:12-0400 Body mass index (BMI) [Ratio] 41.8 kg/m2 Caryl LONGORIA Work Phone: [phone] [place] [address] 02-05-2025 13:12-0400 Body temperature 98.4 [degF] Caryl Green PA Work Phone: [phone] [place] [address] 02-05-2025 13:12-0400 Diastolic blood pressure 91 mm[Hg] Caryl LONGORIA Work Phone: [phone] [place] [address] 02-05-2025 13:12-0400 Heart rate 81 /min Caryl LONGORIA Work Phone: [phone] [place] [address] 02-05-2025 13:12-0400 Respiratory rate 18 /min Caryl Green PA Work Phone: [phone] [place] [address] 02-05-2025 13:12-0400 SaO2% (BldA) [Mass fraction] 99 % Caryl LONGORIA Work Phone: [phone] [place] [address] 02-05-2025 13:12-0400 Systolic blood pressure 131 mm[Hg] Caryl Green PA Work Phone: [phone] [place] [address] 2025 04:24-0400 Body temperature 97.8 [degF] Caryl Green PA Work Phone: [phone] [place] [address] 2025 04:24-0400 Diastolic blood pressure 87 mm[Hg] Caryl Green PA Work Phone: [phone] [place] [address] 2025 04:24-0400 Heart rate 81 /min Caryl Green PA Work Phone: [phone] [place] [address] 2025 04:24-0400 Respiratory rate 16 /min Caryl Green PA Work Phone: [phone] [place] [address] 2025 04:24-0400 SaO2% (BldA) [Mass fraction] 99 % Caryl Green PA Work Phone: [phone] [place] [address] 2025 04:24-0400 Systolic blood pressure 125 mm[Hg] Caryl Green PA Work Phone: [phone] [place] [address] 02-01-2025 23:51-0400 Body height 187.96 cm Caryl Green PA Work Phone: [phone] [place] [address] 02-01-2025 23:51-0400 Body mass index (BMI) [Ratio] 42.8 kg/m2 Caryl Green PA Work Phone: [phone] [place] [address] 02-01-2025 23:51-0400 Body weight 151.45 kg Caryl Green PA Work Phone: [phone] [place] [address] 08-02-2024 10:25-0500 Body mass index (BMI) [Ratio] 37.59 kg/m2 Clarence Rodriguez MD Work Phone: [facility] 08-02-2024 10:25-0500 Body temperature 98.49 [degF] Clarence Rodriguez MD Work Phone: [facility] 08-02-2024 10:25-0500 Body weight 134.26 kg Clarence Rodriguez MD Work Phone: [facility] 08-02-2024 10:25-0500 Diastolic blood pressure 90 mm[Hg] Clarence Rodriguez MD Work Phone: [facility] 08-02-2024 10:25-0500 Heart rate 80 /min Clarence Rodriguez MD Work Phone: [facility] 08-02-2024 10:25-0500 Respiratory rate 18 /min Clarence Rodriguez MD Work Phone: [facility] 08-02-2024 10:25-0500 SaO2% (BldA) [Mass fraction] 97 % Clarence Rodriguez MD Work Phone: [facility] 08-02-2024 10:25-0500 Systolic blood pressure 118 mm[Hg] Clarence Rodriguez MD Work Phone: [facility] 07-08-2024 07:33-0500 Body mass index (BMI) [Ratio] 37.48 kg/m2 Clarence Giles SOFTWARE VALIDATION ENGINEER.DISTRIBUTION DRIVER Work Phone: [facility] 07-08-2024 07:33-0500 Body temperature 98.8 [degF] Clarence Giles SOFTWARE VALIDATION ENGINEER.DISTRIBUTION DRIVER Work Phone: [facility] 07-08-2024 07:33-0500 Body weight 133.87 kg Clarence Giles SOFTWARE VALIDATION ENGINEER.DISTRIBUTION DRIVER Work Phone: [facility] 07-08-2024 07:33-0500 Diastolic blood pressure 64 mm[Hg] Clarence Giles SOFTWARE VALIDATION ENGINEER.DISTRIBUTION DRIVER Work Phone: [facility] 07-08-2024 07:33-0500 Heart rate 90 /min Clarence Pendchristy SOFTWARE VALIDATION ENGINEER.DISTRIBUTION DRIVER Work Phone: [facility] 07-08-2024 07:33-0500 Respiratory rate 16 /min Clarence Gabylevarsha SOFTWARE VALIDATION ENGINEER.DISTRIBUTION DRIVER Work Phone: [facility] 07-08-2024 07:33-0500 SaO2% (BldA) [Mass fraction] 97 % Clarence Giles SOFTWARE VALIDATION ENGINEER.DISTRIBUTION DRIVER Work Phone: [facility] 07-08-2024 07:33-0500 Systolic blood pressure 108 mm[Hg] Clarence Griffinlevarsha SOFTWARE VALIDATION ENGINEER.DISTRIBUTION DRIVER Work Phone: [facility] 05-29-2024 14:46-0500 Body mass index (BMI) [Ratio] 37.49 kg/m2 Case Moomaw SOFTWARE VALIDATION ENGINEER.DISTRIBUTION DRIVER Work Phone: [facility] 05-29-2024 14:46-0500 Body temperature 97.81 [degF] Case Moomaw SOFTWARE VALIDATION ENGINEER.DISTRIBUTION DRIVER Work Phone: [facility] 05-29-2024 14:46-0500 Body weight 133.9 kg Case Moomaw SOFTWARE VALIDATION ENGINEER.DISTRIBUTION DRIVER Work Phone: [facility] 05-29-2024 14:46-0500 Diastolic blood pressure 78 mm[Hg] Case Moomaw SOFTWARE VALIDATION ENGINEER.DISTRIBUTION DRIVER Work Phone: [facility] 05-29-2024 14:46-0500 Heart rate 80 /min Case Moomaw SOFTWARE VALIDATION ENGINEER.DISTRIBUTION DRIVER Work Phone: [facility] 05-29-2024 14:46-0500 Respiratory rate 16 /min Case Moomaw SOFTWARE VALIDATION ENGINEER.DISTRIBUTION DRIVER Work Phone: [facility] 05-29-2024 14:46-0500 SaO2% (BldA) [Mass fraction] 97 % Case Moomaw SOFTWARE VALIDATION ENGINEER.DISTRIBUTION DRIVER Work Phone: [facility] 05-29-2024 14:46-0500 Systolic blood pressure 112 mm[Hg] Case Moomaw SOFTWARE VALIDATION ENGINEER.DISTRIBUTION DRIVER Work Phone: [facility] 11-13-2023 19:16-0400 Body temperature 97.9 [degF] [facility] 11-13-2023 19:16-0400 Diastolic blood pressure 74 mm[Hg] [facility] 11-13-2023 19:16-0400 Heart rate 80 /min [facility] 11-13-2023 19:16-0400 Respiratory rate 16 /min [facility] 11-13-2023 19:16-0400 SaO2% (BldA) [Mass fraction] 97 % [facility] 11-13-2023 19:16-0400 Systolic blood pressure 130 mm[Hg] [facility] 11-13-2023 18:28-0400 Body height 188.01 cm [facility] 11-13-2023 18:28-0400 Body mass index (BMI) [Ratio] 37.8 kg/m2 [facility] 11-13-2023 18:28-0400 Body weight 133.94 kg [facility] 11-13-2023 18:02-0400 Body mass index (BMI) [Ratio] 37.54 kg/m2 Zuleyma Praisler-Wood SOFTWARE VALIDATION ENGINEER.DISTRIBUTION DRIVER Work Phone: [facility] 11-13-2023 18:02-0400 Body temperature 98.01 [degF] Zuleyma Praisler-Wood SOFTWARE VALIDATION ENGINEER.DISTRIBUTION DRIVER Work Phone: [facility] 11-13-2023 18:02-0400 Body weight 134.1 kg Zuleyma Praisler-Wood SOFTWARE VALIDATION ENGINEER.DISTRIBUTION DRIVER Work Phone: [facility] 11-13-2023 18:02-0400 Diastolic blood pressure 68 mm[Hg] Zuleyma Praisler-Wood SOFTWARE VALIDATION ENGINEER.DISTRIBUTION DRIVER Work Phone: [facility] 11-13-2023 18:02-0400 Heart rate 77 /min Zuleyma Praisler-Wood SOFTWARE VALIDATION ENGINEER.DISTRIBUTION DRIVER Work Phone: [facility] 11-13-2023 18:02-0400 Respiratory rate 21 /min Zuleyma Praisler-Wood SOFTWARE VALIDATION ENGINEER.DISTRIBUTION DRIVER Work Phone: [facility] 11-13-2023 18:02-0400 SaO2% (BldA) [Mass fraction] 98 % Zuleyma Praisler-Wood SOFTWARE VALIDATION ENGINEER.DISTRIBUTION DRIVER Work Phone: [facility] 11-13-2023 18:02-0400 Systolic blood pressure 124 mm[Hg] Zuleyma Praisler-Wood SOFTWARE VALIDATION ENGINEER.DISTRIBUTION DRIVER Work Phone: [facility] 05-31-2023 18:22-0500 Body weight 125.65 kg Clarence Rodriguez MD Work Phone: [facility] 05-31-2023 18:22-0500 Diastolic blood pressure 74 mm[Hg] Clarence Rodriguez MD Work Phone: [facility] 05-31-2023 18:22-0500 Heart rate 62 /min Clarence Rodriguez MD Work Phone: [facility] 05-31-2023 18:22-0500 Respiratory rate 16 /min Clarence Rodriguez MD Work Phone: [facility] 05-31-2023 18:22-0500 Systolic blood pressure 114 mm[Hg] Clarence Rodriguez MD Work Phone: [facility] 04-20-2023 09:30-0400 Body temperature 97 [degF] Clarence Rodriguez MD Work Phone: [facility] 04-20-2023 09:30-0400 Body weight 125.19 kg Clarence Rodriguez MD Work Phone: [facility] 04-20-2023 09:30-0400 Diastolic blood pressure 64 mm[Hg] Clarence Rodriguez MD Work Phone: [facility] 04-20-2023 09:30-0400 Heart rate 58 /min Clarence Rodriguez MD Work Phone: [facility] 04-20-2023 09:30-0400 Respiratory rate 16 /min Clarence Rodriguez MD Work Phone: [facility] 04-20-2023 09:30-0400 Systolic blood pressure 110 mm[Hg] Clarence Rodriguez MD Work Phone: [facility] 03-04-2023 09:27-0400 Body temperature 97.39 [degF] Uma Barbara SOFTWARE VALIDATION ENGINEER.DISTRIBUTION DRIVER Work Phone: [facility] 03-04-2023 09:27-0400 Body weight 132.45 kg Uma Barbara SOFTWARE VALIDATION ENGINEER.DISTRIBUTION DRIVER Work Phone: [facility] 03-04-2023 09:27-0400 Diastolic blood pressure 62 mm[Hg] Uma Barbara SOFTWARE VALIDATION ENGINEER.DISTRIBUTION DRIVER Work Phone: [facility] 03-04-2023 09:27-0400 Heart rate 74 /min Uma Barbara SOFTWARE VALIDATION ENGINEER.DISTRIBUTION DRIVER Work Phone: [facility] 03-04-2023 09:27-0400 Respiratory rate 16 /min Uma Jimenez SOFTWARE VALIDATION ENGINEER.DISTRIBUTION DRIVER Work Phone: [facility] 03-04-2023 09:27-0400 SaO2% (BldA) [Mass fraction] 97 % Uma Jimenez SOFTWARE VALIDATION ENGINEER.DISTRIBUTION DRIVER Work Phone: [facility] 03-04-2023 09:27-0400 Systolic blood pressure 112 mm[Hg] Uma Jimenez SOFTWARE VALIDATION ENGINEER.DISTRIBUTION DRIVER Work Phone: [facility] 03-01-2023 16:09-0400 Body weight 132.9 kg Clarence Rodriguez MD Work Phone: [facility] 03-01-2023 16:09-0400 Diastolic blood pressure 84 mm[Hg] Clarence Rodriguez MD Work Phone: [facility] 03-01-2023 16:09-0400 Heart rate 70 /min Clarence Rodriguez MD Work Phone: [facility] 03-01-2023 16:09-0400 Respiratory rate 16 /min Clarence Rodriguez MD Work Phone: [facility] 03-01-2023 16:09-0400 Systolic blood pressure 122 mm[Hg] Clarence Rodriguez MD Work Phone: [facility] 10-19-2022 09:22-0400 Body temperature 98.01 [degF] Josselyn Hay SOFTWARE VALIDATION ENGINEER.DISTRIBUTION DRIVER Work Phone: [facility] 10-19-2022 09:22-0400 Body weight 156.67 kg Josselyn Hay SOFTWARE VALIDATION ENGINEER.DISTRIBUTION DRIVER Work Phone: [facility] 10-19-2022 09:22-0400 Diastolic blood pressure 84 mm[Hg] Josselny Hay SOFTWARE VALIDATION ENGINEER.DISTRIBUTION DRIVER Work Phone: [facility] 10-19-2022 09:22-0400 Heart rate 102 /min Josselyn Hay SOFTWARE VALIDATION ENGINEER.DISTRIBUTION DRIVER Work Phone: [facility] 10-19-2022 09:22-0400 Respiratory rate 18 /min Josselyn Hay SOFTWARE VALIDATION ENGINEER.DISTRIBUTION DRIVER Work Phone: [facility] 10-19-2022 09:22-0400 SaO2% (BldA) [Mass fraction] 97 % Josselyn Hay SOFTWARE VALIDATION ENGINEER.DISTRIBUTION DRIVER Work Phone: [facility] 10-19-2022 09:22-0400 Systolic blood pressure 122 mm[Hg] Josselyn Hay SOFTWARE VALIDATION ENGINEER.DISTRIBUTION DRIVER Work Phone: [facility] 03-22-2022 13:46-0400 Body weight 151.05 kg Nae Domínguez SOFTWARE VALIDATION ENGINEER.DISTRIBUTION DRIVER Work Phone: [facility] 03-22-2022 13:46-0400 Diastolic blood pressure 100 mm[Hg] Nae Chaudhariagen SOFTWARE VALIDATION ENGINEER.DISTRIBUTION DRIVER Work Phone: [facility] 03-22-2022 13:46-0400 Heart rate 98 /min Nae Domínguez SOFTWARE VALIDATION ENGINEER.DISTRIBUTION DRIVER Work Phone: [facility] 03-22-2022 13:46-0400 Respiratory rate 18 /min Nae Domínguez SOFTWARE VALIDATION ENGINEER.DISTRIBUTION DRIVER Work Phone: [facility] 03-22-2022 13:46-0400 SaO2% (BldA) [Mass fraction] 98 % Nae Domínguez SOFTWARE VALIDATION ENGINEER.DISTRIBUTION DRIVER Work Phone: [facility] 03-22-2022 13:46-0400 Systolic blood pressure 146 mm[Hg] Nae Haceline SOFTWARE VALIDATION ENGINEER.DISTRIBUTION DRIVER Work Phone: [facility] 03-15-2022 11:19-0400 Body height 187.96 cm [facility] Work Phone: 03-15-2022 11:19-0400 Body mass index (BMI) [Ratio] 43.4 kg/m2 [facility] Work Phone: 03-15-2022 11:190400 Body temperature 97.9 [degF] [facility] Work Phone: 03-15-2022 11:19-0400 Body weight 153.31 kg [facility] Work Phone: 03-15-2022 11:19-0400 Diastolic blood pressure 96 mm[Hg] [facility] Work Phone: 03-15-2022 11:19-0400 Heart rate 89 /min [facility] Work Phone: 03-15-2022 11:19-0400 Respiratory rate 18 /min [facility] Work Phone: 03-15-2022 11:19-0400 SaO2% (BldA) [Mass fraction] 98 % [facility] Work Phone: 03-15-2022 11:19-0400 Systolic blood pressure 148 mm[Hg] [facility] Work Phone: 03-15-2022 11:00-0400 Body temperature 97.5 [degF] Adriana Gutierres SOFTWARE VALIDATION ENGINEER.DISTRIBUTION DRIVER Work Phone: [facility] 03-15-2022 11:00-0400 Body weight 153.77 kg Adriana Gutierres SOFTWARE VALIDATION ENGINEER.DISTRIBUTION DRIVER Work Phone: [facility] 03-15-2022 11:00-0400 Diastolic blood pressure 82 mm[Hg] Adriana Gutierres SOFTWARE VALIDATION ENGINEER.DISTRIBUTION DRIVER Work Phone: [facility] 03-15-2022 11:00-0400 Heart rate 94 /min Adriana Gutierres SOFTWARE VALIDATION ENGINEER.DISTRIBUTION DRIVER Work Phone: [facility] 03-15-2022 11:00-0400 Respiratory rate 16 /min Adriana Gutierres SOFTWARE VALIDATION ENGINEER.DISTRIBUTION DRIVER Work Phone: [facility] 03-15-2022 11:00-0400 SaO2% (BldA) [Mass fraction] 97 % Adriana Gutierres SOFTWARE VALIDATION ENGINEER.DISTRIBUTION DRIVER Work Phone: [facility] 03-15-2022 11:00-0400 Systolic blood pressure 128 mm[Hg] Adriana Gutierres SOFTWARE VALIDATION ENGINEER.DISTRIBUTION DRIVER Work Phone: [facility] 02-13-2022 19:51-0400 Body height 187.96 cm [facility] Work Phone: 02-13-2022 19:51-0400 Body mass index (BMI) [Ratio] 43.2 kg/m2 [facility] Work Phone: 02-13-2022 19:51-0400 Body temperature 94 [degF] [facility] Work Phone: 02-13-2022 19:51-0400 Body weight 153 kg [facility] Work Phone: 02-13-2022 19:51-0400 Diastolic blood pressure 95 mm[Hg] [facility] Work Phone: 02-13-2022 19:51-0400 Heart rate 95 /min [facility] Work Phone: 02-13-2022 19:51-0400 Respiratory rate 16 /min [facility] Work Phone: 02-13-2022 19:51-0400 SaO2% (BldA) [Mass fraction] 98 % [facility] Work Phone: 02-13-2022 19:51-0400 Systolic blood pressure 147 mm[Hg] [facility] Work Phone: 12-15-2021 12:02-0400 Body temperature 98.1 [degF] Caryl LONGORIA-C Work Phone: [facility] 12-15-2021 12:02-0400 Body weight 150.59 kg Caryl LONGORIA-C Work Phone: [facility] 12-15-2021 12:02-0400 Diastolic blood pressure 86 mm[Hg] Caryl LONGORIA-C Work Phone: [facility] 12-15-2021 12:02-0400 Heart rate 76 /min Caryl Green PA-C Work Phone: [facility] 12-15-2021 12:02-0400 Respiratory rate 18 /min Caryl Green PA-C Work Phone: [facility] 12-15-2021 12:02040 Systolic blood pressure 116 mm[Hg] Caryl Green PA-C Work Phone: [facility] Encounters Encounter Date Encounter Type Care Provider Facility Start: 02-05-2025 End: 02-05-2025 Emergency department patient visit Caryl LONGORIA Work Phone: -Emergency Department Work Phone: Start: 02-05-2025 End: 02-05-2025 ambulatory Caryl Green Facility:[facility] Start: 02-01-2025 End: 2025 Emergency department patient visit Caryl LONGORIA Work Phone: -Emergency Department Work Phone: Start: 08-02-2024 End: 08-02-2024 ambulatory CLARENCE RODRIGUEZ Facility:[facility] Start: 08-02-2024 End: 08-02-2024 Patient encounter procedure Clarence Rodriguez MD Work Phone: [facility] Comment on above: Tonsillitis (Primary Dx); Pharyngitis, unspecified etiology Start: 07-08-2024 End: 07-08-2024 ambulatory CLARENCE RODRIGUEZ Facility:[facility] Start: 07-08-2024 End: 07-08-2024 Office outpatient visit 25 minutes Clarence Giles APRN.DISTRIBUTION DRIVER Work Phone: [facility] Comment on above: Sore throat (Primary Dx); Strep pharyngitis Start: 05-29-2024 End: 05-29-2024 ambulatory CLARENCE RODRIGUEZ Facility:[facility] Start: 05-29-2024 End: 05-29-2024 Patient encounter procedure Case Garrett SOFTWARE VALIDATION ENGINEER.DISTRIBUTION DRIVER Work Phone: [facility] Comment on above: Sore throat (Primary Dx); Acute otitis media, right Start: 11-13-2023 End: 11-13-2023 Emergency department patient visit [facility] Work Phone: Start: 11-13-2023 End: 11-13-2023 ambulatory CLARENCE RODRIGUEZ Facility:[facility] Start: 11-13-2023 End: 11-13-2023 Patient encounter procedure Zuleyma Jovan LIU Work Phone: [facility] Comment on above: Exposure to blood (P rimary Dx) Start: 08-09-2023 End: 08-09-2023 ambulatory CLARENCE RODRIGUEZ Facility:[facility] Start: 05-31-2023 End: 05-31-2023 Patient encounter procedure Clarence Rodriguez MD Work Phone: [facility] [place] Comment on above: GERD without esophag itis (Primary Dx); Encounter for immunization Start: 05-19-2023 Non-patient / Non-visit SWATI LONGORIA Work Phone: [facility] Start: 05-19-2023 End: 05-19-2023 ambulatory SWATI LONGORIA Work Phone: [facility] Work Phone: Start: 05-19-2023 End: 05-19-2023 Patient encounter procedure SWATI LONGORIA Work Phone: [facility] Work Phone: Start: 05-03-2023 ambulatory Clarence miller MD Work Phone: [facility] [place] Comment on above: Wait time Start: 04-20-2023 End: 04-20-2023 Patient encounter procedure Clarence Rodriguez MD Work Phone: [facility] [place] Comment on above: Atypical chest pain (Primary Dx); GERD without esophagitis; Family history of early CAD Start: 04-05-2023 ambulatory Clarence miller MD Work Phone: [facility] [place] Comment on above: Stomach meds Start: 03-04-2023 End: 03-04-2023 Subsequent hospital visit by physician Mojgan [facility] [place] Work Phone: Radiology Comment on above: Rib pain on left cristóbal e [R07.81] Start: 03-04-2023 End: 03-04-2023 Patient encounter procedure Uma Jimenez SOFTWARE VALIDATION ENGINEER.DISTRIBUTION DRIVER Work Phone: [facility] Comment on above: Rib pain on left cristóbal e (Primary Dx) Start: 03-03-2023 Telephone encounter Caryl mendoza PA-C Work Phone: Family [facility] [place] Comment on above: Results Start: 03-01-2023 End: 03-01-2023 Patient encounter procedure Clarence Rodriguez MD Work Phone: Family [facility] [place] Comment on above: Well adult exam (Jackie jenny Dx); LOCKHART (nonalcoholic steatohepatitis); SANJAY (generalized anxiety disorder); Panic attack; Screening for diabetes mellitus; Elevated LFTs; GERD without esophagitis; Heat intolerance; Candidiasis Start: 03-01-2023 End: 03-01-2023 Patient encounter status Clarence Rodriguez MD Work Phone: [facility] Work Phone: Start: 01-05-2023 Refill Tayler hussein APRN.DISTRIBUTION DRIVER Work Phone: Psychiatry Comment on above: Refill Request Start: 12-21-2022 Telephone encounter Caryl mendoza PA-C Work Phone: Family [facility] [place] Comment on above: Results Start: 12-20-2022 End: 12-20-2022 Subsequent hospital visit by physician [facility] Work Phone: Radiology Comment on above: Elevated LFTs [R79.8 9] Start: 11-02-2022 Refill Tayler hussein SOFTWARE VALIDATION ENGINEER.DISTRIBUTION DRIVER Work Phone: Psychiatry Comment on above: Refill Request Start: 10-19-2022 End: 10-19-2022 Patient encounter procedure Josselyn Hay BLAKE.DISTRIBUTION DRIVER Work Phone: [facility] Comment on above: Sorethroat (Primary Dx) Start: 09-09-2022 End: 09-09-2022 [facility] Tayler Gonsalez APRN.DISTRIBUTION DRIVER Work Phone: Psychiatry Comment on above: Panic disorder witho ut agoraphobia (Primary Dx) Start: 08-04-2022 Refill Tayler Mchugh Roelr u SOFTWARE VALIDATION ENGINEER.DISTRIBUTION DRIVER Work Phone: Psychiatry Comment on above: Refill Request Start: 07-15-2022 End: 07-15-2022 [facility] Tayler Gonsalez SOFTWARE VALIDATION ENGINEER.DISTRIBUTION DRIVER Work Phone: Psychiatry Comment on above: Panic disorder witho ut agoraphobia (Primary Dx) Start: 06-24-2022 Refill Tayler Mchugh Roelr u SOFTWARE VALIDATION ENGINEER.DISTRIBUTION DRIVER Work Phone: Psychiatry Comment on above: Refill Request Start: 05-10-2022 ambulatory Anuel Mckenna MD Work Phone: Orthopaedics Comment on above: Question regarding M RI SHOULDER WO IVCON LT Start: 05-09-2022 End: 05-09-2022 Subsequent hospital visit by physician Mri Radio [facility] (I-Stat/1.5t) Work Phone: Radiology Comment on above: Acute pain of left s houlder [M25.512] Start: 04-28-2022 End: 04-28-2022 Subsequent hospital visit by physician Xr [facility] [place] [facility] Work Phone: Radiology Comment on above: Acute pain of left s houlder [M25.512] Start: 04-28-2022 End: 04-28-2022 Patient encounter procedure Anuel Mckenna MD Work Phone: Orthopaedics Comment on above: Acute pain of left s houlder (Primary Dx); Traumatic complete tear of left rotator cuff, initial encounter Start: 04-08-2022 Telephone encounter Nae berger APRN.DISTRIBUTION DRIVER Work Phone: [facility] [place] Comment on above: Orders Start: 04-07-2022 End: 04-07-2022 ambulatory Cesar Callaway [facility] Physical Therapy Comment on above: Acute pain of left s houlder Start: 03-29-2022 ambulatory Nae Domínguez APRN.DISTRIBUTION DRIVER Work Phone: [facility] [place] Comment on above: Physical therapy Start: 03-25-2022 Telephone encounter Nae berger APRN.DISTRIBUTION DRIVER Work Phone: [facility] Comment on above: Results Start: 03-23-2022 ambulatory Nae Domínguez SOFTWARE VALIDATION ENGINEER.DISTRIBUTION DRIVER Work Phone: [facility] Comment on above: Pain relief Start: 03-22-2022 End: 03-22-2022 ambulatory [facility] Work Phone: Start: 03-22-2022 End: 03-22-2022 Patient encounter procedure [facility], [facility] Start: 03-22-2022 Telephone encounter Nae berger SOFTWARE VALIDATION ENGINEER.DISTRIBUTION DRIVER Work Phone: [facility] Comment on above: Results Start: 03-22-2022 End: 03-22-2022 Office outpatient visit 25 minutes Nae Domínguez APRN.DISTRIBUTION DRIVER Work Phone: [facility] Comment on above: Flank pain (Primary Dx); Acute cystitis with hematuria; Acute pain of left shoulder Start: 03-15-2022 End: 03-15-2022 Emergency department patient visit [facility]Emergency [facility] Start: 03-15-2022 End: 03-15-2022 Patient encounter procedure Adriana Gutierres SOFTWARE VALIDATION ENGINEER.DISTRIBUTION DRIVER Work Phone: [facility] Comment on above: Injury of head, init ial encounter (Primary Dx); Accident caused by farm tractor, initial encounter Start: 02-21-2022 End: 02-21-2022 [facility] Tayler Gonsalez SOFTWARE VALIDATION ENGINEER.DISTRIBUTION DRIVER Work Phone: Psychiatry Comment on above: Panic disorder witho ut agoraphobia (Primary Dx) Start: 02-13-2022 End: 02-13-2022 Emergency department patient visit [facility]gency [facility] Start: 01-21-2022 End: 01-21-2022 Patient encounter procedure Grey Barkley VEHICLE FARE COLLECTOR Work Phone: Psychology Comment on above: Severe anxiety (Prim sabrina Dx); Mild depression Start: 01-10-2022 Telephone encounter Grey workman VEHICLE FARE COLLECTOR Work Phone: Psychology Comment on above: Consult ([facility] C justino) Start: 12-30-2021 Telephone encounter Grey workman VEHICLE FARE COLLECTOR Work Phone: Psychology Comment on above: Consult ([facility] C alltrinity) Start: 12-28-2021 Telephone encounter Grey workman VEHICLE FARE COLLECTOR Work Phone: Psychology Comment on above: Consult ([facility] Pt Out reach F/U) Start: 12-27-2021 Telephone encounter Grey workman VEHICLE FARE COLLECTOR Work Phone: Psychology Comment on above: Consult ([facility] Pt Out reach F/U) Start: 12-23-2021 Telephone encounter Clarence Rodriguez MD Work Phone: [facility] [place] Comment on above: Patient Question Start: 12-22-2021 Telephone encounter Grey workman VEHICLE FARE COLLECTOR Work Phone: Psychology Comment on above: Consult (Initial [facility] W Pt Outreach) Start: 12-21-2021 Telephone encounter Clarence Rodriguez MD Work Phone: [facility] [place] Comment on above: Patient Update; Medi cation [...] encounter status Clarence Rodriguez MD Work Phone: [facility] Work Phone: Procedures Date Procedure Procedure Detail Performing Clinician Start: 07-08-2024 STREP A MOLECULAR (POC) Onel Chambers MD Work Phone: Start: 05-29-2024 STREP A MOLECULAR (POC) Adriana Gutierres SOFTWARE VALIDATION ENGINEER.DISTRIBUTION DRIVER Work Phone: Start: 05-31-2023 INFLUENZA VACCINE, A GE 6 MO - 64 YR, QUADRIVALENT (AFLURIA, FLULAVAL, FLUZONE) Clarence Rodriguez MD Work Phone: Start: 03-04-2023 Radex ribs uni w/pos teroant ch minimum 3 views Uma Jimenez SOFTWARE VALIDATION ENGINEER.DISTRIBUTION DRIVER Work Phone: Start: 12-20-2022 Us abdominal real [...] et rgnt auto w/o microscopy Nae Domínguez SOFTWARE VALIDATION ENGINEER.DISTRIBUTION DRIVER Work Phone: Start: 03-15-2022 X-ray of chest posteroanterior view Start: 03-15-2022 Plain X-ray of shoulder Start: 02-13-2022 Plain x-ray of hand Plan of Treatment Date Care Activity Detail Author Start: 02-14-2032 Urine microalbumin profile DTaP,Tdap,Td Vaccine (10 - Td or Tdap) [facility] Start: 01-04-2031 Urine microalbumin profile [facility] Start: 2025 [facility] Start: 03-24-2024 Covid-19 Vaccine ( season) Covid-19 Vaccine ( season) [facility] Start: 03-24-2024 Covid-19 Vaccine ( season) Covid-19 Vaccine ( season) [facility] Start: 03-24-2024 Influenza vaccination Influenza Vacc ine (#1) [facility] Start: 12-13-2023 COVID-19 VACCINE (#1) COVID-19 VACCI NE (#1) [facility] Comment on above: Postponed from 08/05 (Declined at this time) Start: 11-13-2023 [facility] Start: 11-13-2023 Hepatitis B surface antigen measurement [facility] Start: 11-13-2023 Hepatitis C antibody measurement [facility] Start: 07-24-2023 Behavioral Health Screening Behavioral Health Screening [facility] Start: 07-23-2023 DEPRESSION ASSESSMENT DEPRESSION ASS [facility] Comment on above: Postponed from 07/24 (Declined at this time) Start: 03-24-2023 Covid-19 Vaccine () Covid-19 Vaccine () [facility] Start: 03-24-2023 Influenza vaccination [facility] Start: 12-21-2022 End: 02-20-2023 LIPID PANEL, NONFASTING LIPID PANEL, NONFASTING Lab Routine Fatty liver Encounter for lipid screening for cardiovascular disease Expected: 12/21/2022, Expires: 02/20/2023 [facility] Work Phone: Comment on above: Expected: 12/21/2022 , Expires: 02/20/2023 Start: 07-24-2022 [facility] Start: 03-24-2022 Influenza vaccination [facility] Start: 03-22-2022 End: 05-22-2022 CBC W Auto Differential panel - Blood CBC + DIFF Lab STAT Flank pain Expected: 03/22/2022, Expires: 05/22/2022 [facility] Work Phone: Comment on above: Expected: 03/22/2022 , Expires: 05/22/2022 Start: 03-22-2022 End: 05-22-2022 Comprehensive metabolic 2000 panel - Serum or Plasma COMP METABOLIC PANEL Lab STAT Flank pain Expected: 03/22/2022, Expires: 05/22/2022 [facility] Work Phone: Comment on above: Expected: 03/22/2022 , Expires: 05/22/2022 Start: 01-04-2022 COVID-19 VACCINE (#1) COVID-19 VACCI NE (#1) [facility] Comment on above: Postponed from 02/02 (Declined at this time) Start: 01-04-2022 HEPATITIS C SCREENING HEPATITIS C [facility] Comment on above: Postponed from 02/02 (Declined at this time) Start: 07-24-2021 DEPRESSION ASSESSMENT DEPRESSION ASS ESSMENT [facility] Start: 2013 Depression Screening Depression Scre ening [facility] Start: 2013 HEPATITIS C SCREENING HEPATITIS C SC [facility] Start: 2009 PEDS TO ADULT TRANSITION ANNUAL ASSESSMENT PEDS TO ADULT TRANSITION ANNUAL ASSESSMENT [facility] Start: 2007 PEDS TO ADULT TRANSITION INITIAL DISCUSSION PEDS TO ADULT TRANSITION INITIAL DISCUSSION [facility] Start: 2006 HPV VACCINE (1 - Mal e 2-dose series) HPV VACCINE (1 - Male 2-dose series) [facility] Start: 02-03-2000 COVID-19 VACCINE (#1) COVID-19 VACCI NE (#1) [facility] Start: 1995 COVID-19 VACCINE (#1) COVID-19 VACCI NE (#1) [facility] Bacteria identified in Urine by Culture URINE CULTURE Microbiology Routine Flank pain 03/22/2022 2:36 PM EDT [facility] Work Phone: End: 04-21-2023 Ct abdomen & pelvis w/o contrast material CT ABD/PEL WO IVCON Radiology STAT Flank pain 1 Occurrences starting 03/22/2022 until 04/21/2023 [facility] Work Phone: Comment on above: 1 Occurrences starti ng 03/22/2022 until 04/21/2023 End: 04-20-2024 ECG COMPLETE ECG COMPLETE ECG Routine Atypical chest pain 1 Occurrences starting 04/20/2023 until 04/20/2024 [facility] Work Phone: Comment on above: 1 Occurrences starti ng 04/20/2023 until 04/20/2024 End: 04-20-2024 EXERCISE STRESS ECG (WITHOUT IMAGING) EXERCISE STRESS ECG (WITHOUT IMAGING) Cardiology Routine Atypical chest pain Family history of early CAD 1 Occurrences starting 04/20/2023 until 04/20/2024 [facility] Work Phone: Comment on above: 1 Occurrences starti ng 04/20/2023 until 04/20/2024 Hepatitis B virus surface IgG Ab [Presence] in Serum [facility] HIV 1+2 Ab+HIV1 p24 Ag [Presence] in Serum or Plasma by Immunoassay [facility] Patient Education [facility] Work Phone: Patient referral [facility] Work Phone: Urinalysis complete panel - Urine URINALYSIS, WITH MICROSCOPIC Lab Routine Flank pain 03/22/2022 2:36 PM EDT [facility] Work Phone: XR SHOULDER GENERAL 3V OR MORE AP/TRUE AP/OTHER LEFT XR SHOULDER GENERAL 3V OR MORE AP/TRUE AP/OTHER LEFT Radiology Routine Acute pain of left shoulder 04/28/2022 11:45 AM EDT [facility] Work Phone: [facility] Immunizations Immunization Date Immunization Notes Care Provider Cheyanne palacios 02-05-2025 rabies vaccine, for intramuscular injection Caryl LONGORIA Work Phone: [facility] 2025 rabies immune globulin Patricia LONGORIA Work Phone: [facility] 2025 rabies vaccine, for intramuscular injection Caryl LONGORIA Work Phone: [facility] 2025 tetanus toxoid, redu yanira diphtheria toxoid, and acellular pertussis vaccine, adsorbed Caryl LONGORIA Work Phone: [facility] 05-31-2023 influenza, injectabl e, quadrivalent, contains preservative Clarence Rodriguez MD Work Phone: [facility] 05-31-2023 influenza virus vacc ine, unspecified formulation Xr [place] Work Phone: [facility] 02-13-2022 tetanus toxoid, redu yanira diphtheria toxoid, and acellular pertussis vaccine, adsorbed [facility] 01-04-2021 tetanus toxoid, redu yanira diphtheria toxoid, and acellular pertussis vaccine, adsorbed Clarence Rodriguez MD Work Phone: [facility] 06-14-2019 influenza virus vacc ine, unspecified formulation Clarence Rodriguez MD Work Phone: [facility] 05-24-2019 Influenza virus vaccine [facility] 05-14-2016 tetanus toxoid, redu yanira diphtheria toxoid, and acellular pertussis vaccine, adsorbed Clarence Rodriguez MD Work Phone: [facility] 01-31-2011 hepatitis A vaccine, unspecified formulation Clarence Rodriguez MD Work Phone: [facility] Work Phone: 02-18-2009 hepatitis A vaccine, unspecified formulation Clarence Rodriguez MD Work Phone: [facility] Work Phone: 02-18-2009 Meningococcal, MCV4, unspecified conjugate formulation(groups A, C, Y and W-135) Clarence Rodriguez MD Work Phone: [facility] Work Phone: 02-21-2006 tetanus toxoid, redu yanira diphtheria toxoid, and acellular pertussis vaccine, adsorbed Clarence Rodriguez MD Work Phone: [facility] Work Phone: 07-04-2003 influenza virus vacc ine, unspecified formulation Clarence Rodriguez MD Work Phone: [facility] Work Phone: 03-03-2000 diphtheria, tetanus toxoids and acellular pertussis vaccine Clarence Rodriguez MD Work Phone: [facility] Work Phone: 03-03-2000 measles, mumps and rubella virus vaccine Clarence Rodriguez MD Work Phone: [facility] Work Phone: 03-03-2000 poliovirus vaccine, inactivated Clarence Rodriguez MD Work Phone: [facility] Work Phone: 07-24-1997 Chicken Pox (disease) Alex Rodriguez MD Work Phone: [facility] Work Phone: 05-07-1996 diphtheria, tetanus toxoids and acellular pertussis vaccine Clarence Rodriguez MD Work Phone: [facility] Work Phone: 05-07-1996 haemophilus influenz ae type b vaccine, HbOC conjugate Clarence Rodriguez MD Work Phone: [facility] Work Phone: 02-28-1996 measles, mumps and rubella virus vaccine Clarence Rodriguez MD Work Phone: [facility] Work Phone: 1995 diphtheria, tetanus toxoids and acellular pertussis vaccine Clarence Rodriguez MD Work Phone: [facility] Work Phone: 1995 haemophilus influenz ae type b vaccine, HbOC conjugate Clarence Rodriguez MD Work Phone: [facility] Work Phone: 1995 hepatitis B vaccine, pediatric or pediatric/adolescent dosage Clarence Rodrgiuez MD Work Phone: [facility] Work Phone: 1995 trivalent poliovirus vaccine, live, oral Clarence Rodriguez MD Work Phone: [facility] Work Phone: 1995 diphtheria, tetanus toxoids and acellular pertussis vaccine Clarence Rodriguez MD Work Phone: [facility] Work Phone: 1995 haemophilus influenz ae type b vaccine, HbOC conjugate Clarence Rodriguez MD Work Phone: [facility] Work Phone: 1995 trivalent poliovirus vaccine, live, oral Clarence Rodriguez MD Work Phone: [facility] Work Phone: 1995 diphtheria, tetanus toxoids and acellular pertussis vaccine Clarence Rodriguez MD Work Phone: [facility] Work Phone: 1995 haemophilus influenz ae type b vaccine, HbOC conjugate Clarence Rodriguez MD Work Phone: [facility] Work Phone: 1995 hepatitis B vaccine, pediatric or pediatric/adolescent dosage Clarence Rodriguez MD Work Phone: [facility] Work Phone: 1995 trivalent poliovirus vaccine, live, oral Clarence Rodriguez MD Work Phone: [facility] Work Phone: 1995 hepatitis B vaccine, pediatric or pediatric/adolescent dosage Clarence Rodriguez MD Work Phone: [facility] Work Phone: Payers Date Payer Category Payer Self-pay [id number] 2022 Unknown [id number] 2021 Unknown [id number] 2021 Unknown [id number] 2016 Medicaid [id number] Private Health Insurance [id number] Unknown [id number] Unknown [id number] Social History Date Type Detail Facility Start: 02-24-2011 End: 02-01-2025 Tobacco smoking status NHIS Never smoked tobacco [facility] Start: 08-12-2021 End: 08-02-2024 Alcohol intake Current non-drinker of alcohol (finding) [facility] Start: 09-16-2019 End: 12-12-2022 History SDOH Alcohol Frequency 1 [facility] Start: 09-16-2019 End: 12-12-2022 History SDOH Alcohol Std Drinks 98 [facility] Start: 07-25-2019 End: 12-12-2022 History SDOH Social Connections Phone 5 [facility] Start: 07-25-2019 End: 12-12-2022 History SDOH Social Connections Membership 2 [facility] Start: 07-25-2019 End: 12-12-2022 History SDOH Social Connections Living 3 [facility] Start: 07-25-2019 End: 12-12-2022 History SDOH Physical Activity MPS 6 [facility] Start: 07-25-2019 Education 12 [facility] Start: 1995 Sex Assigned At Male [facility] Start: 12-05-2021 End: 05-26-2022 Exposure to SARS-CoV-2 (event) Not sure [facility] Start: 02-13-2022 End: 11-13-2023 Tobacco smoking status NHIS Unknown if ever smoked [facility] Start: 07-18-2019 None [facility] Start: 07-18-2019 Spouse/ Significant Other;With Family [facility] Start: 11-24-2020 Chew [facility] Start: 02-24-2011 End: 03-22-2022 Tobacco use and exposure Smokeless tobacco non-user [facility] Start: 04-28-2022 Tobacco use and exposure User of smokeless tobacco [facility] Start: 12-12-2022 History SDOH Alcohol Std Drinks 0 [facility] Start: 03-01-2023 Tobacco use and exposure Former smokeless tobacco user [facility] Work Phone: End: 02-20-2023 History of tobacco use Chews Tobacco [facility] Work Phone: Start: 12-11-2022 End: 08-02-2024 History of Social function [facility] Start: 12-11-2022 End: 08-02-2024 Social connection and isolation panel [facility] Do you belong to any clubs or organizations such as mu-ism groups, unions, fraternal or athletic groups, or school groups? No [facility] How often do you att end meetings of the clubs or organizations you belong to? Patient refused [facility] Are you now , , , , never or living with a partner? [facility] How often to you hav e a drink containing alcohol? Never [facility] Do you feel stress - tense, restless, nervous, or anxious, or unable to sleep at night because your mind is troubled all the time - these days [OSQ] Very much [facility] (I/We) worried wheth er (my/our) food would run out before (I/we) got money to buy more. Never true [facility] Start: 12-18-2020 Gender identity Identifies as male gender (finding) [facility] Start: 12-18-2020 Sexual orientation Heterosexual (finding) [facility] Clinical Notes 08-16-2019 to 08-02-2024 Clarence Rodriguez MD - 08/02/2024 10:23 AM Clarence Santillan APRN.DISTRIBUTION DRIVER - 07/08/2024 7:54 AM Case Jean Baptiste APRN.DISTRIBUTION DRIVER - 05/29/2024 2:57 PM Clarence Hernandez MD - 05/31/2023 5:56 PM EST Note Date & Type Note Facility 08-02-2024 Note HNO ID: [id number] Author: CLARENCE RODRIGUEZ MD Service: ? Author [...] Relation Age of Onset Heart Maternal Grandfather [place] Hypertension Mother None Father Heart Maternal Uncle [...] ENT for tonsillectomy. Clarence Rodriguez MD [facility] 08-02-2024 History of Presen t illness Narrative [...] Relation Age of Onset Heart Maternal Grandfather NV Hypertension Mother None Father Heart Maternal Uncle [...] Clarence Rodriguez MD documented in this encounter [facility] 07-08-2024 Note HNO ID: [id number] Author: CLARENCE GILES APRN.DISTRIBUTION DRIVER Service: ? Author Type: Nurse Practitioner Type: [...] Relation Age of Onset Heart Maternal Grandfather NV Hypertension Mother None Father Heart Maternal Uncle [...] Patient was (more content not included)... [facility] 07-08-2024 History of Presen t illness Narrative [...] Relation Age of Onset Heart Maternal Grandfather NV Hypertension Mother None Father Heart Maternal Uncle [...] of care. This note was generated using AlwaysFashion software. It may contain errors in wording, punctuation, or spelling. Clarence Giles APRN.DISTRIBUTION DRIVER documented in this encounter [facility] 05-29-2024 Note HNO ID: [id number] Author: CASE GARRETT APRN.VINITA Service: ? Author Type: Nurse Practitioner Type: Progress Notes Filed: 05/29/2024 15:04 Note Text: This note was created using Bitrockr. Subjective Aldair Yepez is a 29 year [...] - AMOXICILLIN 875 MG TABLET Case Garrett APRN.[facility] 05-29-2024 History of Presen t illness Narrative This note was created using AmideBioriter. Subjective Aldair Yepez is a 29 year [...] - AMOXICILLIN 875 MG TABLET Case Garrett APRN.DISTRIBUTION DRIVER documented in this encounter [facility] 11-13-2023 Note HNO ID: [id number] Author: ZULEYMA ALDANA APRN.[facility]A Service: ? Author [...] Relation Age of Onset Heart Maternal Grandfather [place] Hypertension Mother None Father Heart Maternal Uncle [...] go to ER as advised. Zuleyma Aldana APRN.[facility] 11-13-2023 History of Presen t illness Narrative [...] Relation Age of Onset Heart Maternal Grandfather NV Hypertension Mother None Father Heart Maternal Uncle [...] go to ER as advised. Zuleyma Aldana APRN.DISTRIBUTION DRIVER documented in this encounter [facility] 08-09-2023 Note HNO ID: [id number] Author: CLARENCE RODRIGUEZ MD Service: ? Author [...] and a maternal grandfather who of a NV in either his 40-50's. Past medical history, [...] Relation Age of Onset Heart Maternal Grandfather NV Hypertension Mother None Father Heart Maternal Uncle [...] due on (more content not included)... [facility] 05-31-2023 History of Presen t illness Narrative [...] and a maternal grandfather who of a NV in either his 40-50's. Patient does not [...] Relation Age of Onset Heart Maternal Grandfather NV Hypertension Mother None Father Heart Maternal Uncle [...] Clarence Rodriguez MD documented in this encounter [facility] 05-05-2023 Miscellaneous Notes Order was faxed by isma and put into filing cabinet Patient notified and given scheduling number for [facility] if not contacted Appointment was made for 4 weeks Karen Novak Ma Form ready to be faxed. Let patient know we are sending order for stress to [facility]. Patient needs a f/u visit for GERD in about 4 weeks Form completed and given to provider. And referral placed Patricia Carpenter MA Isma can we fax an order over to [facility] to do a treadmill stress test. Dx: R07.89 and Z82.49 Patient needs a f/u visit for GERD in about [address] Rodriguez: No future stress test or 3-4 week f/u for GERD/chest pain scheduled in at this time. Wilda Burgess MA documented in this encounter [facility] 04-20-2023 History of Presen t illness Narrative [...] and a maternal grandfather who of a NV in either his 40-50's. Patient does not [...] Relation Age of Onset Heart Maternal Grandfather NV Hypertension Mother None Father Heart Maternal Uncle [...] Clarence Rodriguez MD documented in this encounter [facility] 04-12-2023 Miscellaneous Notes Pt has appointment scheduled with Caryl 04/20/23. Vika Hernandez LPN Attempted to schedule pt for office visit but was unable to do so d/t insurance (reached denial tree). Pt advised to contact office to speak with scheduling for appt. Michael Hernandez LPN Patient will need seen in office. documented in this encounter [facility] 03-04-2023 History of Presen t illness Narrative [...] 2023 10:02 AM documented in this encounter [facility] 03-04-2023 History of Presen t illness Narrative Images from the original note were not included. Subjective The history is provided by the patient. No foreign languages professor was used. HPI Aldair Yepez is a [...] use: No PAST MEDICAL HISTORY Diagnosis Date SANJYA (generalized anxiety disorder) 08/16/2019 GERD without esophagitis 03/01/2023 Globus sensation 08/16/2019 improved with treatment of anxiety LOCKHART (nonalcoholic steatohepatitis) 03/01/2023 Obesity, Class II, BMI 35-39.9 09/16/2019 Panic attack 08/30/2019 PMH - PAST MEDICAL HISTORY OF 2009 normal color vision Seasonal allergic rhinitis 12/24/2020 Well adult exam 09/16/2019 Last done: 03/01/2023 I have confirmed and edited as necessary, the [facility] Review of Systems Constitutional: Negative for [...] detail warranting prompt ER evaluation. Uma Jimenez APRN.DISTRIBUTION DRIVER documented in this encounter [facility] 03-03-2023 Miscellaneous Notes Patient notified of results and provider's instructions. Patient verbalizes understanding. Vika Hernandez LPN Let patient know that overall labs look okay/stable. Keep working on diet and weight loss to help with cholesterol and fatty liver. Caryl Green PA-C documented in this encounter [facility] 03-01-2023 Instructions Clarence Rodriguez MD - 03/01/2023 4:45 PM EDT Please get labs done on or after 08/18/2023 prior to your next visit. documented in this encounter [facility] 03-01-2023 History of Presen t illness Narrative [...] Relation Age of Onset Heart Maternal Grandfather NV Hypertension Mother None Father Heart Maternal Uncle [...] Abs Lymph 1.00 - 4.00 k/uL 1.59 Williamson% % 8.9 Abs Williamson <0.87 k/uL 0.62 Eosin% % 4.4 Abs [...] Clarence Rodriguez MD documented in this encounter [facility] 01-06-2023 Miscellaneous Notes Patient has been identified [...] Beth Murphy LPN documented in this encounter [facility] 12-21-2022 Miscellaneous Notes Spoke with patient. Given [...] Caryl Green PA-C documented in this encounter [facility] 12-20-2022 History of Presen t illness Narrative [...] 2022 11:04 AM documented in this encounter [facility] 11-03-2022 Miscellaneous Notes Patient has been identified [...] Beth Murphy LPN documented in this encounter [facility] 10-19-2022 History of Presen t illness Narrative [...] Relation Age of Onset Heart Maternal Grandfather NV Hypertension Mother None Father Heart Maternal Uncle [...] Josselyn Hay APRN.CNP documented in this encounter [facility] 09-09-2022 Instructions Tayler Gonsalez APRN.CNP - 09/09/2022 [...] - Call the National Suicide Hotline at 2-022-MBTXVAJ ( ) or 9-873-182-TALK (8640) - Text 2BTIT to 528115 Medication Update: Stop Paxil. Venlafaxine 150 mg XR - take 1 capsule once daily. Propranolol 40 mg - take 1 tablet up to twice daily as needed. Next appointment: --Schedule in 4 to 6 weeks or sooner if needed -- You may call the department appointment line at [phone] to schedule your appointment. -- Please call my nurse Mary Beth at [phone] or send me a message in [employer] with any questions or concerns between appointments. documented in this encounter [facility] 09-09-2022 History of Presen t illness Narrative [...] which included preparing to see the patient, [id number] patient care, completing clinical documentation, and counseling and educating the patient/family/caregiver, ordering medications/labs. Tayler Gonsalez APRN.[facility] September 09, 2022 3:29 PM This note was partially generated using AlwaysFashion voice recognition system. Note was reviewed for accuracy. There may be minor misspellings or grammar miscues with [email or web address] voice recognition. documented in this encounter [facility] 08-05-2022 Miscellaneous Notes Patient notified and voices [...] advise. Thank you. documented in this encounter [facility] 07-15-2022 Instructions Tayler Gonsalez APRN.CNP - 07/15/2022 [...] - Call the National Suicide Hotline at 3-208-VVHCWBH ( ) or 5-765-172-TALK (3135) - Text 4HOPE to 752888 Medication Update: Starting today, decrease Paxil to [...] may call the department appointment line at [phone] to schedule your appointment. -- Please call my nurse Mary Beth at [phone] or send me a message in [employer] with any questions or concerns between appointments. documented in this encounter [facility] 07-15-2022 History of Presen t illness Narrative [...] panic attacks if he tries to leave [place]. Propranolol only helped for a short time [...] which included preparing to see the patient, [id number] patient care, completing clinical documentation, and counseling and educating the patient/family/caregiver, ordering medications/labs. Tayler Gonsalez APRN.CNP July 15, 2022 2:56 PM This note was partially generated using AlwaysFashion voice recognition system. Note was reviewed for accuracy. There may be minor misspellings or grammar miscues with AlwaysFashion voice recognition. documented in this encounter [facility] 06-24-2022 Miscellaneous Notes Patient's spouse requesting refill [...] Devi Gross RN documented in this encounter [facility] 05-09-2022 History of Presen t illness Narrative [...] 2022 11:44 AM documented in this encounter [facility] 04-28-2022 History of Presen t illness Narrative [...] 2022 11:36 AM documented in this encounter [facility] 04-28-2022 History of Presen t illness Narrative Anuel Mckenna MD Department of Orthopaedics Orthopaedics [address] [facility] [address] Dept: [phone] Dept April 28, 2022 CHIEF COMPLAINT: New and Pain of the Left Shoulder HPI Patient here today for left shoulder pain x 1.5 months. 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 He was seen at [facility] after the injury. He was referred to [...] age indeterminate fracture in the greater tuberosity. Computational Mathematician: PSCB Transcribe Date/Time: Apr 29 2022 2:28P [...] Relation Age of Onset Heart Maternal Grandfather NV Hypertension Mother None Father Heart Maternal Uncle [...] electronic medical record. Anuel Mckenna [address] [facility] [address] Clarence Rodriguez MD [address] [facility] [address] Anuel Mckenna MD documented in this encounter [facility] 04-08-2022 Miscellaneous Notes Received a message from PT. Concerned about a significant rotator cuff tear. Referral placed for ortho. Encouraged to schedule back for follow-up. Nae Domínguez APRN.CNP documented in this encounter [facility] 04-07-2022 History of Presen t illness Narrative [...] further evaluation from primary care physician or applied behavior science specialist for further imaging and updated plan of care. Goals for Episode of Care: created on 04/07/22 through 05/07/22 [place] in home exercise program. Patient will decrease pain rating by 2 points to meet minimal clinical important difference for numeric pain rating scale. Perform ADL's with decreased report of symptoms/pain in 12 weeks. Perform work tasks and functions without pain. Planned Interventions, Frequency, and Duration: Current Frequency: 2x/week Duration: 4 weeks Total Number of Visits Planned: 8 Planned Treatment Interventions: Therapeutic exercise (76585);Neuromuscular re-education (78787);Manual therapy (57673);Therapeutic activities (58847);Self-mcc management (69132) PLAN FOR NEXT VISIT: Pt to follow up with PCP or applied behavior science specialist Patient demonstrates good understanding of plan of care and treatment. The above goals and plan of care were discussed and agreed upon by patient/family. SUBJECTIVE: Aldair Yepez is a 27 year old male seen today for Pt presents approximately 3 weeks following a chemistry instructor accident in which the mower rolled and [...] Cesar Slaughter PT documented in this encounter [facility] 03-29-2022 Miscellaneous Notes Referral placed. Please help schedule. Nae Domínguez APRN.VINITA Ok to order PT for shoulder? Or do you want pt to come in again? documented in this encounter [facility] 03-29-2022 Miscellaneous Notes See MC message. Kidney [...] Nae Domínguez APRN.VINITA documented in this encounter [facility] 03-23-2022 Miscellaneous Notes Pt notified. He verbalized [...] pain medication is not helping. Was given [place]. Urine Cx in process. Nhi Rueda Ma documented in this encounter [facility] 03-23-2022 Miscellaneous Notes MC message's read by [...] note were not included. Labs copied from [employer]: message to pt. Michael Hernandez LPN Can please let patient know that I received his CT results from [facility]. Thankfully, everything looked normal. He does [...] Nae Domínguez APRN.VINITA documented in this encounter [facility] 03-22-2022 History of Presen t illness Narrative This is a 27 year old male who presents today with: Patient presents with: ER F/U: [facility] ER follow up 03/15 dx: mower rolled over on him HISTORY OF PRESENT ILLNESS: Aldair Yepez is a 27 year old male. Patient presents with: ER F/U: [facility] ER follow up 03/15 dx: mower rolled [...] Relation Age of Onset Heart Maternal Grandfather [place] Hypertension Mother None Father Heart Maternal Uncle [...] APRN.VINITA This note was partially generated using [employer] voice recognition system. Note was reviewed for accuracy. There may be minor misspellings or grammar miscues with [employer] voice recognition. 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 States that it tipped, He ultimately fell [...] ED Declines EMS. documented in this encounter [facility] 02-21-2022 Instructions Tayler Gonsalez APRN.CNP - 02/21/2022 [...] - Call the National Suicide Hotline at 6-165-RYSUDTG ( ) or 2-275-693-TALK (5755) - Text 9CORM to 431861 Medication Update: - Paxil 40 mg - [...] may call the department appointment line at [phone] to schedule your appointment. -- Please call my nurse Mary Beth at [phone] or send me a message in [employer] with any questions or concerns between appointments. documented in this encounter [facility] 02-21-2022 History of Presen t illness Narrative [...] Grey Barkley, [facility]'s note of 01/21/2022: Pt is a 26yr [...] anxiety when he is trying to leave [place]. 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 Okay short term. Anxiety: high when he [...] Reason for hospitalization/Length of Stay: N/A Psychiatrist/ DISTRIBUTION DRIVER: seen by psychiatrist x1 at [facility], no meds prescribed Therapist: seeing counselor at [facility], x1 wkly Vascular Ultrasound Technician: None Mental Health Agency/Practice: [facility] Did you the previous treatment helpful? Not helpful ECT: no Previous Discontinued Psychiatric Med Trials: See HPI Per Grey Barkley [facility]'s note of 01/21/2022: SUBSTANCE USE HISTORY: Nicotine: [...] N/A, No history of use or dependence Clinical Nursing Director : N/A, No history of use or dependence Previous Treatments/ AA, NA, CA, etc.: denies Have you ever practiced sobriety: Not Applicable Are you interested in CD treatment? 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 denied any past legal history SPIRITUALITY/TEMPLE: Zoroastrianism FAMILY PSYCHIATRIC/SUBSTANCE USE HISTORY: Sister-Anxiety Disorder and [...] which included preparing to see the patient, [id number] patient care, completing clinical documentation, obtaining and/or reviewing separately obtained history, counseling and educating the patient/family/caregiver, ordering medications, tests, or procedures, communicating with other HCPs (not separately reported) and independently interpreting results (not separately reported). ADD ON PSYCHOTHERAPY CODE : No SIGNATURE: Tayler Gonsalez APRN.CNP PATIENT NAME: Aldair Yepez DATE: February 21, 2022 TIME: 8:20 AM PAGER : documented in this encounter [facility] 01-21-2022 History of Presen t illness Narrative Behavioral Health Social Work Assessment Patient was seen for an initial evaluation. All information is from patient report except when noted. This evaluation is NOT intended for forensic, disability, or child custody purposes. Informed consent was discussed and signed by the patient. -Pt was sent Brightkit with consent for tx -Pt read Brightkit, agreed [facility] Assessment: Virtual *Pt lost connection after 40 minutes -unable to reconnect -completed assessment via phone Pt location: In [facility] location: [place] PRESENT: Self Patient identified for [facility] from: PCP (Caryl Green, Chu) Reason for referral: [facility] Assessment (failed mental health tx, SANJAY,panic) [facility] encounter type: Virtual Visit Attempts to Outreach: [...] -will inform [facility] of his decision Medical History: PAST MEDICAL [...] OF EDUCATION: High School Diploma 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 denied any past legal history SPIRITUALITY/TEMPLE: Zoroastrianism PFSH: Patient was born and raised in [place], [place], patient is the middle of 3 [...] Reason for hospitalization/Length of Stay: N/A Psychiatrist/ DISTRIBUTION DRIVER: seen by psychiatrist x1 at [facility], no meds prescribed Therapist: seeing counselor at [facility], x1 wkly Vascular Ultrasound Technician: None Mental Health Agency[facility]Practice[facility] Did [...] N/A, No history of use or dependence Clinical Nursing Director : N/A, No history of use or [...] and 8 0 (none) to 10 (worst) [id number] Mood: positive for the most part Affect: [...] for anxiety, leaving town -seeing counselor from [facility] wkly, not helpful -saw psychiatrist x1 from [facility], no meds prescribed -interested in seeing psych graduate rn Plan: -Pt was scheduled with Tayler Gonsalez [...] -will inform [facility] of his decision [facility] will send Pt Mary Beth's number, to contact her once financially cleared DIAGNOSIS: PRIMARY: 1: Anxiety Disorder severe Other: Depressive D/O mild RESOURCES PROVIDED: Internal: psychiatry External- has counselor at [facility], seen x1 wkly OTHER- N/A In case of a mental health emergency, contact Crisis line [phone] or report to your closest ER. MANSOOR De La Vega documented in this encounter [facility] 01-10-2022 Miscellaneous Notes Behavioral Health Social Work Progress Note Patient identified for [facility] from: PCP (Chu Zhao) Reason for referral: [facility] Assessment (failed mental health tx, SANJAY,panic) [facility] encounter type: Telephone Encounter Attempts to Outreach: [...] appt -wants to have Pt see psych graduate rn without having to see [facility] -anxiety is getting worse [facility] sent msg to psych graduate rn -her 1st available is mid to last January and was advised for Pt to keep bh assessment [facility] contacted Pt's -informed her needs to keep bh assessment - requested to sched psych graduate rn appt now -informed Pt will still need to keep bh assessment - agreed [facility] sent msg to psych graduate rn -Pt is allowed to sched psych graduate rn prior to completing bh assessment -if does not complete bh assessment psych graduate rn appt will automatically be cancelled -contacted INOCENTE [place], to contact to sched with Tayler Gonsalez CNP -she agreed to contact [facility] contacted Pt's and informed of the above -she agreed [facility] pointed out due to needing financial clearance of each visit the appt may not be able to be scheduled MANSOOR De La Vega January 10, 2022 documented in this encounter [facility] 12-30-2021 Miscellaneous Notes Behavioral Health Social Work Progress Note Patient identified for [facility] from: PCP (Chu Zhao) Reason for referral: SW Assessment (failed mental health tx, SANJAY,panic) [facility] encounter type: Telephone Encounter Attempts to Outreach: 6 attempts Final Disposition: Resources given (12-30-21 informed needs to contact [employer] dept, [employer] company to find covered network provider, chong [...] tx his anxiety -offered following resource: [facility] [address] [place] [address] [facility] requested inform [facility] if she is able to get financial clearance or schedules an appt elsewhere. No further contact is indicated at this time MANSOOR De La Vega December 30, 2021 documented in this encounter [facility] 12-28-2021 Miscellaneous Notes Behavioral Health Social Work Progress Note Patient identified for [facility] from: PCP (Chu Zhao) Reason for referral: [facility] Assessment (failed mental health tx, SANJAY,panic) [facility] encounter type: Telephone Encounter Attempts to Outreach: 4 attempts Final Disposition: Other (12-28-21 Informed , unable to sched appt due to insurance out of network) Patient Discharged?: Yes Patient reported that caregiver was able to meet their needs today?: N/A [facility] received a msg from milk runner Pt is unable to be scheduled -insurance is out of network [facility] attempted to contact Pt -left vm on his cell number -contacted and informed her the appt was cancelled due to insurance being out of network - offered to pay out of pocket -informed her she would need to talk with financial dept - stated she will contact the insurance company and get things worked out -[facility] recommended inquiring about covered behavioral health services when talking with the insurance. agreed to inform [facility] of the outcome of her conversation with the insurance No further contact is indicated -will wait to hear from MANSOOR De La Vega December 28, 2021 documented in this encounter [facility] 12-27-2021 Miscellaneous Notes Behavioral Health Social Work Progress Note Patient identified for [facility] from: PCP (Chu Zhao) Reason for referral: [facility] Assessment (failed mental health tx, SANJAY,panic) [facility] encounter type: Telephone Encounter Attempts to Outreach: 2 attempts Referral made: Psychology - Internal Psychology-Internal referral type: (scheduled assessment for 01-07-22 at 9am virtual) SW received a msg from Chu Zhao - would like for Pt to see [facility] psychiatry provider [facility] to contact Pt -no answer [facility] assessment for 01-07-22 at 9am virtual -sent [employer] with appt info, consent for tx, PHQ9 and GAD7 MANSOOR De La Vega December 27, 2021 documented in this encounter [facility] 12-27-2021 Miscellaneous Notes Spoke with and they [...] they should be managing medications. voiced understanding. Cehly Rainey RN Left message for pt's to [...] Alia Nuñez RN documented in this encounter [facility] 12-22-2021 Miscellaneous Notes BEHAVIORAL HEALTH SOCIAL WORK CONSULT NOTE Service Date: December 22, 2021 Patient was identified by name and Patient: Aldair Yepez [address] [facility] [address] (home) [phone] (cell) PCP: Clarence Rodriguez MD [address] [facility] [address] Patient identified for [facility] from: PCP (Chu Zhao) Reason for referral: [facility] Assessment (failed mental health tx, SANJAY,panic) [facility] encounter type: Telephone Encounter Assessment: SW received a consult from Chu Zhao, for assessment failed mental health tx, SANJAY, panic SW reviewed Pt's chart/insurance [facility] contacted Pt -he was unaware [facility] would be calling -stated has been communicating with [facility] office -reported he is receiving services from [facility], on line service -has seen a counselor -has an appt with a psychiatrist tomorrow at 8am Prefers to cont with current providers and not switch services at this time -Pt thanked [facility] for calling [facility] notified Chu Zhao, has services and will [...] is receiving counseling and psychiatry service from [facility]) Patient Discharged?: Yes Patient reported that caregiver was able to meet their needs today?: N/A Internal Referrals : No Reason for External Referrals : Other : Pt is established with behavioral health services, counseling and psychiatry at [facility], on line service Intervention: Supportive Listening Resources Provided: Other: none at this time Pt is established with behavioral health services Time Spent: 15 minutes MANSOOR De La Vega documented in this encounter [facility] 12-21-2021 Miscellaneous Notes noted Patient's calls and states that patient is feeling better. states that patient is just going to stop taking medication. Patient is not going to ER. Chely Rainey RN documented in this encounter [facility] 12-21-2021 Miscellaneous Notes Spoke with pt's . She advises that he is not back to normal and will take pt to [facility] ER as instructed by Caryl. Vika Hernandez [...] at work now. documented in this encounter [facility] 12-15-2021 History of Presen t illness Narrative [...] Relation Age of Onset Heart Maternal Grandfather [place] Hypertension Mother None Father Heart Maternal Uncle [...] If not improving, can set up with treasury agent. Caryl Green PA-C documented in this encounter [facility] 12-10-2021 Miscellaneous Notes Patient spouse was notified [...] together? Please advise documented in this encounter [facility] 12-03-2021 Miscellaneous Notes Spoke with pt's and she states she [facility] Vika Hernandez LPN Patient due [...] advise. Clementina Christina documented in this encounter [facility] 12-03-2021 Miscellaneous Notes Already addressed. Last refill 05/12/21 Qty: 30 with 5 refills Last ov 08/12/21 No appt scheduled Vika Hernandez LPN documented in this encounter [facility] 08-16-2019 History of Past i llness Narrative Problem Noted Date Resolved Date Globus sensation 08/16/2019 09/16/2019 documented as of this encounter (statuses as of 12/03/2021) [facility] History of Past illness Narrative* Problem Noted Date Resolved Date Globus sensation 08/16/2019 09/16/2019 documented as of this encounter (statuses as of 12/03/2021) [place] [address] History of Past illness Narrative* Problem Noted Date Resolved Date Globus sensation 08/16/2019 09/16/2019 documented as of this encounter (statuses as of 12/10/2021) [place] [address] History of Past illness Narrative* Problem Noted Date Resolved Date Globus sensation 08/16/2019 09/16/2019 documented as of this encounter (statuses as of 12/15/2021) [place] [address] History of Past illness Narrative* Problem Noted Date Resolved Date Globus sensation 08/16/2019 09/16/2019 documented as of this encounter (statuses as of 12/21/2021) [place] [address] History of Past illness Narrative* Problem Noted Date Resolved Date Globus sensation 08/16/2019 09/16/2019 documented as of this encounter (statuses as of 12/21/2021) [place] [address] History of Past illness Narrative* Problem Noted Date Resolved Date Globus sensation 08/16/2019 09/16/2019 documented as of this encounter (statuses as of 12/22/2021) [place] [address] History of Past illness Narrative* Problem Noted Date Resolved Date Globus sensation 08/16/2019 09/16/2019 documented as of this encounter (statuses as of 12/27/2021) [place] [address] History of Past illness Narrative* Problem Noted Date Resolved Date Globus sensation 08/16/2019 09/16/2019 documented as of this encounter (statuses as of 12/28/2021) [place] [address] History of Past illness Narrative* Problem Noted Date Resolved Date Globus sensation 08/16/2019 09/16/2019 documented as of this encounter (statuses as of 12/30/2021) [place] [address] History of Past illness Narrative* Problem Noted Date Resolved Date Globus sensation 08/16/2019 09/16/2019 documented as of this encounter (statuses as of 01/10/2022) [place] [address] History of Past illness Narrative* Problem Noted Date Resolved Date Globus sensation 08/16/2019 09/16/2019 documented as of this encounter (statuses as of 01/21/2022) [place] [address] History of Past illness Narrative* Problem Noted Date Resolved Date Globus sensation 08/16/2019 09/16/2019 documented as of this encounter (statuses as of 02/21/2022) [place] [address] History of Past illness Narrative* Problem Noted Date Resolved Date Globus sensation 08/16/2019 09/16/2019 documented as of this encounter (statuses as of 03/15/2022) [place] [address] History of Past illness Narrative* Problem Noted Date Resolved Date Globus sensation 08/16/2019 09/16/2019 documented as of this encounter (statuses as of 03/22/2022) [place] [address] History of Past illness Narrative* Problem Noted Date Resolved Date Globus sensation 08/16/2019 09/16/2019 documented as of this encounter (statuses as of 03/23/2022) [place] [address] History of Past illness Narrative* Problem Noted Date Resolved Date Globus sensation 08/16/2019 09/16/2019 documented as of this encounter (statuses as of 03/23/2022) [place] [address] History of Past illness Narrative* Problem Noted Date Resolved Date Globus sensation 08/16/2019 09/16/2019 documented as of this encounter (statuses as of 03/29/2022) [place] [address] History of Past illness Narrative* Problem Noted Date Resolved Date Globus sensation 08/16/2019 09/16/2019 documented as of this encounter (statuses as of 04/07/2022) [place] [address] History of Past illness Narrative* Problem Noted Date Resolved Date Globus sensation 08/16/2019 09/16/2019 documented as of this encounter (statuses as of 04/08/2022) [place] [address] History of Past illness Narrative* Problem Noted Date Resolved Date Globus sensation 08/16/2019 09/16/2019 documented as of this encounter (statuses as of 04/29/2022) [place] [address] History of Past illness Narrative* Problem Noted Date Resolved Date Globus sensation 08/16/2019 09/16/2019 documented as of this encounter (statuses as of 05/10/2022) [place] [address] History of Past illness Narrative* Problem Noted Date Resolved Date Globus sensation 08/16/2019 09/16/2019 documented as of this encounter (statuses as of 05/10/2022) [place] [address] History of Past illness Narrative* Problem Noted Date Resolved Date Globus sensation 08/16/2019 09/16/2019 documented as of this encounter (statuses as of 05/16/2022) [place] [address] History of Past illness Narrative* Problem Noted Date Resolved Date Globus sensation 08/16/2019 09/16/2019 documented as of this encounter (statuses as of 06/24/2022) [place] [address] History of Past illness Narrative* Problem Noted Date Resolved Date Globus sensation 08/16/2019 09/16/2019 documented as of this encounter (statuses as of 07/17/2022) [place] [address] History of Past illness Narrative* Problem Noted Date Resolved Date Globus sensation 08/16/2019 09/16/2019 documented as of this encounter (statuses as of 08/05/2022) [place] [address] History of Past illness Narrative* Problem Noted Date Resolved Date Globus sensation 08/16/2019 09/16/2019 documented as of this encounter (statuses as of 09/14/2022) [place] [address] History of Past illness Narrative* Problem Noted Date Resolved Date Globus sensation 08/16/2019 09/16/2019 documented as of this encounter (statuses as of 10/19/2022) [place] [address] History of Past illness Narrative* Problem Noted Date Resolved Date Globus sensation 08/16/2019 09/16/2019 documented as of this encounter (statuses as of 11/03/2022) [place] [address] History of Past illness Narrative* Problem Noted Date Resolved Date Globus sensation 08/16/2019 09/16/2019 documented as of this encounter (statuses as of 12/21/2022) [place] [address] History of Past illness Narrative* Problem Noted Date Resolved Date Globus sensation 08/16/2019 09/16/2019 documented as of this encounter (statuses as of 01/06/2023) [place] [address] History of Past illness Narrative* Problem Noted Date Diagnosed Date Resolved Date Globus sensation 08/16/2019 09/16/2019 documented as of this encounter (statuses as of 03/03/2023) [place] [address] History of Past illness Narrative* Problem Noted Date Diagnosed Date Resolved Date Globus sensation 08/16/2019 09/16/2019 documented as of this encounter (statuses as of 03/04/2023) [place] [address] History of Past illness Narrative* Problem Noted Date Diagnosed Date Resolved Date Globus sensation 08/16/2019 09/16/2019 documented as of this encounter (statuses as of 03/04/2023) [place] [address] History of Past illness Narrative* Problem Noted Date Diagnosed Date Resolved Date Globus sensation 08/16/2019 09/16/2019 documented as of this encounter (statuses as of 04/12/2023) [place] [address] History of Past illness Narrative* Problem Noted Date Diagnosed Date Resolved Date Globus sensation 08/16/2019 09/16/2019 documented as of this encounter (statuses as of 04/21/2023) [place] [address] History of Past illness Narrative* Problem Noted Date Diagnosed Date Resolved Date Globus sensation 08/16/2019 09/16/2019 documented as of this encounter (statuses as of 05/05/2023) [place] [address] History of Past illness Narrative* Problem Noted Date Diagnosed Date Resolved Date Globus sensation 08/16/2019 09/16/2019 documented as of this encounter (statuses as of 05/28/2023) [place] [address] History of Past illness Narrative* Problem Noted Date Diagnosed Date Resolved Date Globus sensation 08/16/2019 09/16/2019 documented as of this encounter (statuses as of 06/01/2023) [facility] Diagnosis SANJAY (generalized anxiety disorder)- Primary Generalized anxiety disorder Panic attack Panic disorder without agoraphobia Seasonal allergic rhinitis, unspecified trigger [facility] Diagnosis Severe anxiety- Primary Mild depression Depressive disorder, not elsewhere classified [facility] noteNo assessment information availableWMarietta Memorial [facility] Work Phone: [facility]* Diagnosis Panic disorder without agoraphobia- Primary [facility]* Diagnosis Injury of head, initial encounter- Primary Accident caused by farm tractor, initial encounter [facility] Diagnosis Flank pain- Primary Abdominal pain, unspecified site Acute cystitis with hematuria Acute cystitis Acute pain of left shoulder [facility] this [facility] Diagnosis Flank pain Abdominal pain, unspecified site Acute pain of left shoulder [facility]* Diagnosis Acute pain of left shoulder- Primary [facility]* Diagnosis Acute pain of left shoulder [facility] Diagnosis Acute pain of left shoulder- Primary [facility] Diagnosis Acute pain of left shoulder- Primary Traumatic complete tear of left rotator cuff, initial encounter [facility]* Diagnosis Panic disorder without agoraphobia- Primary documented in this encounter [facility] note* Diagnosis Panic disorder without agoraphobia- Primary [facility]* Diagnosis Sorethroat- Primary Acute pharyngitis [facility]* Diagnosis Fatty liver- Primary Other chronic nonalcoholic liver disease Encounter for lipid screening for cardiovascular disease Screening for lipoid disorders documented [facility]* Diagnosis Well adult exam- Primary Routine [...] of unspecified site [facility]* Diagnosis Rib pain on left side- Primary Chest pain, unspecified [facility]* Diagnosis Atypical chest pain- Primary Other chest pain GERD without esophagitis Esophageal reflux Family history of early CAD Family history of ischemic heart disease [facility]* Diagnosis Elevated LFTs Other abnormal blood chemistry [facility]* Diagnosis GERD without esophagitis- Primary Esophageal reflux Encounter for immunization Need for other specified prophylactic vaccination against single bacterial disease documented in this encounter [facility] note* Diagnosis Exposure to blood- Primary Personal history of contact with and (suspected) exposure to potentially hazardous body fluids documented in this encounter [facility] note* Diagnosis Rib pain on left side Chest pain, unspecified documented in this encounter [facility] note* Diagnosis Sore throat- Primary Acute pharyngitis Acute otitis media, right Unspecified otitis media documented in this encounter [facility] note* Diagnosis Sore throat- Primary Acute pharyngitis Strep pharyngitis Streptococcal sore throat documented in this encounter [facility] note* Diagnosis Tonsillitis- Primary Acute tonsillitis Pharyngitis, unspecified etiology documented in this encounter [facility] Discharge instructionsAdditional Instructions Please stay away from raccoons. Follow-up with your primary care physician. You received your rabies immunoglobulin and vaccine here in the emergency department. You need to have recurrent rabies vaccines on day 3, day 7, day 14 from when you were bit.[facility] Work Phone: [facility] Diagnostic Procedure Only (Urgent) - Pending Review Specialty Diagnoses / Procedures Referred By Contac t Referred To Contact XR IMAGING Diagnoses Rib pain on left side Procedures XR RIBS/CHEST 3V AP RIB/OBLS/CXR LEFT RADEX RIBS UNI W/POSTEROANT CH MINIMUM 3 VIEWS Uma Jimenez APRN.CNP [address] [place] [address] Xr Imaging Referral ID Status Reason Start Date Expiration Date Visits Requested Visits Authorized [id number] Pending Review Auto-Generat ed Referral 03/04/2023 04/02/2024 1 1 [facility] for referral (narrative)* Outpatient Procedure (Routine) - Denied Specialty Diagnoses / Procedures Referred By Contac t Referred To Contact [facility] Diagnoses Atypical chest pain Procedures ECG COMPLETE ECG ROUTINE ECG W/LEAST 12 LDS W/I&R Clarence Rodriguez MD [address] [place] [address] [facility] [place] [address] [place] [address] Referral ID Status Reason Start Date Expiration Date V isits Requested Visits Authorized [id number] Denied Auto-Generate d Referral 04/20/2023 04/19/2024 1 0 [facility] for referral (narrative)* Diagnostic Procedure Only (Routine) - Closed Specialty Diagnoses / Procedures Referred By Contac t Referred To Contact US IMAGING Diagnoses Elevated LFTs Procedures US ABD RIGHT UPPER QUADRANT US ABDOMINAL REAL TIME W/IMAGE LIMITED Caryl Green PA-C [address] [place] [address] [place] [address] Referral ID Status Reason Start Date Expiration Date V isits Requested Visits Authorized [id number] Closed Patient Cleared - True Self-Pay required payment collected 12/13/2022 01/12/2024 1 1 [facility] for referral (narrative)* Diagnostic Procedure Only (Urgent) - Denied Specialty Diagnoses / Procedures Referred By Contac t Referred To Contact XR IMAGING Diagnoses Rib pain on left side Procedures XR RIBS/CHEST 3V AP RIB/OBLS/CXR LEFT RADEX RIBS UNI W/POSTEROANT CH MINIMUM 3 VIEWS Uma Jimenez APRN.CNP [address] [place] [address] Xr Imaging [facility] Referral ID Status Reason Start Date Expiration Date Visits Re quested Visits Authorized [id number] Denied 03/04/2023 04/02/2024 1 0 [facility] for referral (narrative)No reason for referral information [facility]ari[facility] Work Phone: Reason for visit Narrative* Diagnostic Procedure Only (Routine) - Denied Specialty Diagnoses / Procedures Referred By Contac t Referred To Contact XR IMAGING Diagnoses Acute pain of left shoulder Procedures XR SHOULDER GENERAL 3V OR MORE AP/TRUE AP/OTHER LEFT RADEX SHOULDER COMPLETE MINIMUM 2 VIEWS Anuel Mckenna MD [address] [place] [address] Xr Imaging Referral ID Status Reason Start Date Expiration Date V isits Requested Visits Authorized [id number] Denied Auto-Generate d Referral OON/Self Pay Override 04/28/2022 05/28/2023 1 0 [facility] Diagnostic Procedure Only (Urgent) - Denied Specialty Diagnoses / Procedures Referred By Contac t Referred To Contact XR IMAGING Diagnoses Rib pain on left side Procedures XR RIBS/CHEST 3V AP RIB/OBLS/CXR LEFT RADEX RIBS UNI W/POSTEROANT CH MINIMUM 3 VIEWS Uma Jimenez APRN.DISTRIBUTION DRIVER [address] [place] [address] [place] [address] Referral ID Status Reason Start Date Expiration Date Visits Re quested Visits Authorized [id number] Denied 03/04/2023 04/02/2024 1 0 [facility] Advance Directives No Advanced Directives Records FoundDocuments on File Type Date Recorded Patient Location And Measurement Technician Expl anation Advance Directive(s) 09/17/2019 8:33 AM Advance Directive Response Recorded Date/ Time Living Will No February 13, 2022 8:02pm Power of Drupal Developer No February 13 8:02pm Advance Directive Response Recorded Date/ Time Living Will No March 15 11:41am Power of Drupal Developer No March 15 11:41am Advance Directive Response Recorded Date/ Time Living Will No November 13, 2023 6:49pm Power of Drupal Developer No November 12 6:49pm Advance Directive Response Recorded Date/ Time Do you have a Healthcare Power of Drupal Developer? 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 FLANK PAIN Chief Complaint Other chest pain [...] ABD & PELVIS W/O CONTRAST Nae Domínguez, BLAKE.DISTRIBUTION DRIVER [address] [place] [address] Ct Imaging Referral ID Status Reason Start Date Expiration Date V isits Requested Visits Authorized [id number] Closed Auto-Generate d Referral 03/22/2022 04/21/2023 1 1 Specialty Diagnoses / Procedures Referred By Contac t Referred To Contact [facility] Diagnoses Acute pain of left shoulder Procedures CONSULT TO PHYSICAL THERAPY PHYSICAL THERAPY EVALUATION [facility] 45 MINS Nae Domínguez APRN.DISTRIBUTION DRIVER [address] [place] [address] [facility] [place] [address] [place] [address] Referral ID Status Reason Start Date Expiration Date Visits Requested Visits Authorized [id number] Pending Review Auto-Generat ed Referral 03/29/2022 03/29/2023 1 1 Specialty Diagnoses / Procedures Referred By Contac t Referred To Contact Orthopedics Diagnoses Acute pain of left shoulder Procedures CONSULT TO ORTHOPAEDICS OFFICE/OUTPATIENT [facility] 60-74 MINUTES Nae Domínguez, SOFTWARE VALIDATION ENGINEER.DISTRIBUTION DRIVER [address] [place] [address] [place] [address] Referral ID Status Reason Start Date Expiration Date V isits Requested Visits Authorized [id number] Denied PCP Requested Referral 04/08/2022 04/08/2023 1 0 Specialty Diagnoses / Procedures Referred By Contac t Referred To Contact MR IMAGING Diagnoses Acute pain of left shoulder Traumatic complete tear of left rotator cuff, initial encounter Procedures MRI SHOULDER WO IVCON LT MRI ANY JT UPPER EXTREMITY W/O CONTRAST Anuel Reno MD [address] [place] [address] Mr Imaging Referral ID Status Reason Start Date Expiration Date Visits Requested Visits Authorized [id number] Closed Auto-Generated Referral Patient cleared - OON Required Payment Collected OON Notification Letter 04/28/2022 05/28/2023 1 1 Specialty Diagnoses / Procedures Referred By Contac t Referred To Contact XR IMAGING Diagnoses Acute pain of left shoulder Procedures XR SHOULDER GENERAL 3V OR MORE AP/TRUE AP/OTHER LEFT RADEX SHOULDER COMPLETE MINIMUM 2 VIEWS Anuel Mckenna MD [address] [place] [address] Xr Imaging Referral ID Status Reason Start Date Expiration Date V isits Requested Visits Authorized [id number] Denied Auto-Generate d Referral OON/Self Pay Override [...] any alcohol or drug abuse patient.[facility] the event this information is protected by the Federal Confidentiality of Alcohol and Drug Abuse Patient Records regulations: The Federal rules restrict any use of the information to criminally investigate or prosecute any alcohol or drug abuse patient.[facility] the event this information is protected by the Federal Confidentiality of Alcohol and Drug Abuse Patient Records regulations: The Federal rules restrict any use of the information to criminally investigate or prosecute any alcohol or drug abuse patient.[facility] the event this information is protected by the Federal Confidentiality of Alcohol and Drug Abuse Patient Records regulations: The Federal rules restrict any use of the information to criminally investigate or prosecute any alcohol or drug abuse patient.[facility] the event this information is protected by the Federal Confidentiality of Alcohol and Drug Abuse Patient Records regulations: The Federal rules restrict any use of the information to criminally investigate or prosecute any alcohol or drug abuse patient.[facility] the event this information is protected by the Federal Confidentiality of Alcohol and Drug Abuse Patient Records regulations: The Federal rules restrict any use of the information to criminally investigate or prosecute any alcohol or drug abuse patient.[facility] the event this information is protected by the Federal Confidentiality of Alcohol and Drug Abuse Patient Records regulations: The Federal rules restrict any use of the information to criminally investigate or prosecute any alcohol or drug abuse patient.[facility] the event this information is protected by the Federal Confidentiality of Alcohol and Drug Abuse Patient Records regulations: The Federal rules restrict any use of the information to criminally investigate or prosecute any alcohol or drug abuse patient.[facility] the event this information is protected by the Federal Confidentiality of Alcohol and Drug Abuse Patient Records regulations: The Federal rules restrict any use of the information to criminally investigate or prosecute any alcohol or drug abuse patient.[facility]In the event this information is protected by the Federal Confidentiality of Alcohol and Drug Abuse Patient Records regulations: The Federal rules restrict any use of the information to criminally investigate or prosecute any alcohol or drug abuse patient.[facility] the event this information is protected by the Federal Confidentiality of Alcohol and Drug Abuse Patient Records regulations: The Federal rules restrict any use of the information to criminally investigate or prosecute any alcohol or drug abuse patient.[facility] Hospital[facility] the event this information is protected by the Federal Confidentiality of Alcohol and Drug Abuse Patient Records regulations: The Federal rules restrict any use of the information to criminally investigate or prosecute any alcohol or drug abuse patient.[facility] HospitalIn the event this information is protected by the Federal Confidentiality of Alcohol and Drug Abuse Patient Records regulations: The Federal rules restrict any use of the information to criminally investigate or prosecute any alcohol or drug abuse patient.[facility] the event this information is protected by the Federal Confidentiality of Alcohol and Drug Abuse Patient Records regulations: The Federal rules restrict any use of the information to criminally investigate or prosecute any alcohol or drug abuse patient.[facility] Hospital[facility] the event this information is protected by the Federal Confidentiality of Alcohol and Drug Abuse Patient Records regulations: The Federal rules restrict any use of the information to criminally investigate or prosecute any alcohol or drug abuse patient.[facility] HospitalIn the event this information is protected by the Federal Confidentiality of Alcohol and Drug Abuse Patient Records regulations: The Federal rules restrict any use of the information to criminally investigate or prosecute any alcohol or drug abuse patient.[facility] HospitalIn the event this information is protected by the Federal Confidentiality of Alcohol and Drug Abuse Patient Records regulations: The Federal rules restrict any use of the information to criminally investigate or prosecute any alcohol or drug abuse patient.[facility] HospitalIn the event this information is protected by the Federal Confidentiality of Alcohol and Drug Abuse Patient Records regulations: The Federal rules restrict any use of the information to criminally investigate or prosecute any alcohol or drug abuse patient.[facility] the event this information is protected by the Federal Confidentiality of Alcohol and Drug Abuse Patient Records regulations: The Federal rules restrict any use of the information to criminally investigate or prosecute any alcohol or drug abuse patient.[facility] HospitalIn the event this information is protected by the Federal Confidentiality of Alcohol and Drug Abuse Patient Records regulations: The Federal rules restrict any use of the information to criminally investigate or prosecute any alcohol or drug abuse patient.[facility] HospitalIn the event this information is protected by the Federal Confidentiality of Alcohol and Drug Abuse Patient Records regulations: The Federal rules restrict any use of the information to criminally investigate or prosecute any alcohol or drug abuse patient.[facility] HospitalIn the event this information is protected by the Federal Confidentiality of Alcohol and Drug Abuse Patient Records regulations: The Federal rules restrict any use of the information to criminally investigate or prosecute any alcohol or drug abuse patient.[facility] Hospital[facility] the event this information is protected by the Federal Confidentiality of Alcohol and Drug Abuse Patient Records regulations: The Federal rules restrict any use of the information to criminally investigate or prosecute any alcohol or drug abuse patient.[facility] HospitalIn the event this information is protected by the Federal Confidentiality of Alcohol and Drug Abuse Patient Records regulations: The Federal rules restrict any use of the information to criminally investigate or prosecute any alcohol or drug abuse patient.[facility]In the event this information is protected by the Federal Confidentiality of Alcohol and Drug Abuse Patient Records regulations: The Federal rules restrict any use of the information to criminally investigate or prosecute any alcohol or drug abuse patient.[facility]In the event this information is protected by the Federal Confidentiality of Alcohol and Drug Abuse Patient Records regulations: The Federal rules restrict any use of the information to criminally investigate or prosecute any alcohol or drug abuse patient.[facility]In the event this information is protected by the Federal Confidentiality of Alcohol and Drug Abuse Patient Records regulations: The Federal rules restrict any use of the information to criminally investigate or prosecute any alcohol or drug abuse patient.[facility] HospitalIn the event this information is protected by the Federal Confidentiality of Alcohol and Drug Abuse Patient Records regulations: The Federal rules restrict any use of the information to criminally investigate or prosecute any alcohol or drug abuse patient.[facility] HospitalIn the event this information is protected by the Federal Confidentiality of Alcohol and Drug Abuse Patient Records regulations: The Federal rules restrict any use of the information to criminally investigate or prosecute any alcohol or drug abuse patient.[facility]In the event this information is protected by the Federal Confidentiality of Alcohol and Drug Abuse Patient Records regulations: The Federal rules restrict any use of the information to criminally investigate or prosecute any alcohol or drug abuse patient.[facility] HospitalIn the event this information is protected by the Federal Confidentiality of Alcohol and Drug Abuse Patient Records regulations: The Federal rules restrict any use of the information to criminally investigate or prosecute any alcohol or drug abuse patient.[facility] HospitalIn the event this information is protected by the Federal Confidentiality of Alcohol and Drug Abuse Patient Records regulations: The Federal rules restrict any use of the information to criminally investigate or prosecute any alcohol or drug abuse patient.[facility] HospitalIn the event this information is protected by the Federal Confidentiality of Alcohol and Drug Abuse Patient Records regulations: The Federal rules restrict any use of the information to criminally investigate or prosecute any alcohol or drug abuse patient.[facility] HospitalIn the event this information is protected by the Federal Confidentiality of Alcohol and Drug Abuse Patient Records regulations: The Federal rules restrict any use of the information to criminally investigate or prosecute any alcohol or drug abuse patient.[facility] HospitalIn the event this information is protected by the Federal Confidentiality of Alcohol and Drug Abuse Patient Records regulations: The Federal rules restrict any use of the information to criminally investigate or prosecute any alcohol or drug abuse patient.[facility]In the event this information is protected by the Federal Confidentiality of Alcohol and Drug Abuse Patient Records regulations: The Federal rules restrict any use of the information to criminally investigate or prosecute any alcohol or drug abuse patient.[facility]In the event this information is protected by the Federal Confidentiality of Alcohol and Drug Abuse Patient Records regulations: The Federal rules restrict any use of the information to criminally investigate or prosecute any alcohol or drug abuse patient.[facility]In the event this information is protected by the Federal Confidentiality of Alcohol and Drug Abuse Patient Records regulations: The Federal rules restrict any use of the information to criminally investigate or prosecute any alcohol or drug abuse patient.[facility] HospitalIn the event this information is protected by the Federal Confidentiality of Alcohol and Drug Abuse Patient Records regulations: The Federal rules restrict any use of the information to criminally investigate or prosecute any alcohol or drug abuse patient.[facility] HospitalIn the event this information is protected by the Federal Confidentiality of Alcohol and Drug Abuse Patient Records regulations: The Federal rules restrict any use of the information to criminally investigate or prosecute any alcohol or drug abuse patient.[facility]In the event this information is protected by the Federal Confidentiality of Alcohol and Drug Abuse Patient Records regulations: The Federal rules restrict any use of the information to criminally investigate or prosecute any alcohol or drug abuse patient.[facility] HospitalIn the event this information is protected by the Federal Confidentiality of Alcohol and Drug Abuse Patient Records regulations: The Federal rules restrict any use of the information to criminally investigate or prosecute any alcohol or drug abuse patient.[facility] HospitalIn the event this information is protected by the Federal Confidentiality of Alcohol and Drug Abuse Patient Records regulations: The Federal rules restrict any use of the information to criminally investigate or prosecute any alcohol or drug abuse patient.[facility] HospitalIn the event this information is protected by the Federal Confidentiality of Alcohol and Drug Abuse Patient Records regulations: The Federal rules restrict any use of the information to criminally investigate or prosecute any alcohol or drug abuse patient.[facility] HospitalIn the event this information is protected by the Federal Confidentiality of Alcohol and Drug Abuse Patient Records regulations: The Federal rules restrict any use of the information to criminally investigate or prosecute any alcohol or drug abuse patient.[facility] HospitalIn the event this information is protected by the Federal Confidentiality of Alcohol and Drug Abuse Patient Records regulations: The Federal rules restrict any use of the information to criminally investigate or prosecute any alcohol or drug abuse patient.[facility] HospitalIn the event this information is protected by the Federal Confidentiality of Alcohol and Drug Abuse Patient Records regulations: The Federal rules restrict any use of the information to criminally investigate or prosecute any alcohol or drug abuse patient.[facility] Reason for Visit (unrecogniz ed section and content) Reason Comments Follow Up Specialty Diagnoses / Procedures Referred By Mario robbins Referred To Contact FAMILY MEDICINE Diagnoses gerd/chest pain follow up Procedures OFFICE/OUTPATIENT ESTABLISHED MOD MDM 30-39 MIN Clarence Piedra MD [address] [place] [address] [facility] [address] [place] [address] Referral ID Status Reason Start Date Expiration Date Visits Requested Visits Authorized [id number] Closed Financial Clearance Required - OON Payor OON Notification Letter Patient cleared - OON Required Payment Collected 04/20/2023 07/19/2023 1 1 Specialty Diagnoses / Procedures Referred By Mario robbins Referred To Contact ADULT PSYCHIATRY Diagnoses Virtual Procedures Virtual Tayler Gonsalez, SOFTWARE VALIDATION ENGINEER.DISTRIBUTION DRIVER [address] [place] [address] Psyc Adult [facility] [address] [place] [address] Referral ID Status Reason Start Date Expiration Date Visits Requested Visits Authorized [id number] Closed Financial Clearance Required - OON Payor [...] OFFICE VISIT Self Caryl Green PA-C [address] [place] [address] Referral ID Status Reason Start Date Expiration Date Visits Requested Visits Authorized [id number] Closed Financial Clearance Required - OON Payor Clearance Not Met - Admin/Stage Settings Painter/D irector Advise to Postpone/Resched ule or Not Proceed OON Notification Letter 12/15/2021 07/23/2022 1 1 Reason Comments Patient Update Medication Problem Reason Comments Patient Update Reason Comments Consult Initial [facility] Pt Outr each Reason Comments Consult [facility] Pt Outreach F/U Reason Comments Patient Question Reason Comments Consult [facility] Calling Reason Comments Consult [facility] Assessment Virt ual Specialty Diagnoses / Procedures Referred By Mario robbins Referred To Contact ADULT PSYCHOLOGY Diagnoses anxiety/ eval Procedures REFERRAL TO CC FINANCIAL COUNSELOR PSYCHIATRIC DIAGNOSTIC EVALUATION 1st eval Clarence Rodriguez MD [address] [place] [address] Psyl Adult [place] [id number] [address] Referral ID Status Reason Start Date Expiration Date Visits Requested Visits Authorized [id number] Closed Financial Clearance Required - OON Payor OON Notification Letter Patient cleared - OON Required Payment Collected 12/27/2021 03/27/2022 1 1 Reason Comments New Patient Evaluation Specialty Diagnoses / Procedures Referred By Contac t Referred To Contact ADULT PSYCHOLOGY Diagnoses medication Procedures REFERRAL TO [facility] FINANCIAL COUNSELOR EST patient Grey Barkley LISW [address] [place] [address] Psyl Adult [facility] [address] [address] Referral ID Status Reason Start Date Expiration Date Visits Requested Visits Authorized [id number] Closed Financial Clearance Required - OON Payor OON Notification Letter Patient Cleared Patient chose to pay or Auth obtained after CCN denied 01/28/2022 04/28/2022 1 1 Reason Comments left shoulder pain Flipped mower over 1 hour ago Reason Comments ER F/U [facility] ER follow up 02/22 3 dx: mower rolled over on him Specialty Diagnoses / Procedures Referred By Mario t Referred To Contact FAMILY MEDICINE Diagnoses ER f/u Procedures consult and treat Self, [facility] [address] [place] [phone] Referral ID Status Reason Start Date Expiration Date V isits Requested Visits Authorized [id number] Denied OON/Self Pay Override 03/22/2022 06/20/2022 1 0 Reason Comments Results Reason Comments PT Eval Specialty Diagnoses / Procedures Referred By Gillianac t Referred To Contact [facility] Diagnoses Acute pain of left shoulder Procedures CONSULT TO PHYSICAL THERAPY PHYSICAL THERAPY EVALUATION HIGH COMPLEX 45 MINS Nae Domínguez APRN.DISTRIBUTION DRIVER [address] [place] [address] [facility] [address] [place] [address] Referral ID Status Reason Start Date Expiration Date V isits Requested Visits Authorized [id number] Closed Financial Clearance Required - OON Payor [...] MATRL Anuel Mckenna MD [address] [place] [address] Mr Imaging Referral ID Status Reason Start Date Expiration Date Visits Requested Visits Authorized [id number] Closed Auto-Generated Referral Patient cleared - OON Required Payment Collected OON Notification Letter 04/28/2022 05/28/2023 1 1 Reason Comments New Pain Specialty Diagnoses / Procedures Referred By Contac t Referred To Contact ORTHOPAEDIC SURGERY Diagnoses Torn Rotator Cuff Procedures Office Visit Anuel Mckenna MD [address] [facility] [place] [address] [facility] [address] [place] [address] Referral ID Status Reason Start Date Expiration Date Visits Requested Visits Authorized [id number] Closed Financial Clearance Required - OON Payor OON Notification Letter Patient cleared - OON Required Payment Collected 04/11/2022 07/10/2022 1 1 Reason Onset Date Comments Refill Request 06/24/2022 Specialty Diagnoses / Procedures Referred By Contac t Referred To Contact Psychiatry / ADULT PSYCHIATRY Diagnoses NEW PATIENT Procedures VIDEO PSYC/PSYL NEW Filippo, Grey, MANSOOR [address] [place] [address] Tayler Gonsalez, SOFTWARE VALIDATION ENGINEER.DISTRIBUTION DRIVER [address] [place] [address] Referral ID Status Reason Start Date Expiration Date Visits Requested Visits Authorized [id number] Closed Financial Clearance Required - OON Payor [...] TEST, TREAT, CONSULT Caryl Green PA-C [address] [place] [address] [facility] [address] [place] [address] Referral ID Status Reason Start Date Expiration Date V isits Requested Visits Authorized [id number] Closed Financial Clearance Required - OON Payor Patient cleared - OON Required Payment Collected 02/15/2023 05/16/2023 1 1 Reason Comments Pain (Shoulder Pain) left shoulder pain into chest x 2 days, comes and goes Reason Comments Pain Specialty Diagnoses / Procedures Referred By Contac t Referred To Contact [facility] Diagnoses GERD ISSUES Procedures REFERRAL TO [facility] FINANCIAL COUNSELOR [facility] 4C Clarence Rodriguez MD [address] [place] [address] [facility] [place] [address] Referral ID Status Reason Start Date Expiration Date Visits Requested Visits Authorized [id number] Closed Financial Clearance Required - OON Payor OON Notification Letter Patient cleared - OON Required Payment Collected 04/11/2023 07/10/2023 1 1 Reason Comments Radiology US Specialty Diagnoses / Procedures Referred By Contac t Referred To Contact US IMAGING Diagnoses Elevated LFTs Procedures US ABD RIGHT UPPER QUADRANT US ABDOMINAL REAL TIME W/IMAGE LIMITED Caryl Green PA-C [address] [place] [address] [place] [address] Referral ID Status Reason Start Date Expiration Date V isits Requested Visits Authorized [id number] Closed Patient Cleared - True Self-Pay required [...] Care Teams (unrecognized sec tion and content) Inventory Control Analyst Relationship Specialty Start Date End Date Clarence Rodriguez MD [address] [place], [place] [address] PCP - General Family Practice 10/03/19 Inventory Control Analyst Relationship Specialty Start Date End Date Clarence Rodriguez MD [address] [facility] [place] [address] PCP - General Family Practice 10/03/19 Inventory Control Analyst Relationship Specialty Start Date End Date Clarence Rodriguez MD [address] [place] [address], [place] [address] PCP - General Family Practice 10/03/19 Inventory Control Analyst Relationship Specialty Start Date End Date Clarence Rodriguez MD [address] [place] [address], [place] [address] PCP - General Family Practice 10/03/19 Inventory Control Analyst Relationship Specialty Start Date End Date Clarence Rodriguez MD [address] [place] [address], [place] [address] PCP - General Family Practice 10/03/19 Inventory Control Analyst Relationship Specialty Start Date End Date Clarence Rodriguez MD [address] [place] [address], [place] [address] PCP - General Family Practice 10/03/19 Inventory Control Analyst Relationship Specialty Start Date End Date Clarence Rodriguez MD [address] [place] [address], [place] [address] PCP - General Family Practice 10/03/19 Inventory Control Analyst Relationship Specialty Start Date End Date Clarence Rodriguez MD [address] [place] [address], [place] [address] PCP - General Family Practice 10/03/19 Inventory Control Analyst Relationship Specialty Start Date End Date Clarence Rodriguez MD [address] [place] [address], [place] [address] PCP - General Family Practice 10/03/19 Inventory Control Analyst Relationship Specialty Start Date End Date Clarence Rodriguez MD [address] [place] [address], [place] [address] PCP - General Family Practice 10/03/19 Inventory Control Analyst Relationship Specialty Start Date End Date Clarence Rodriguez MD [facility] [place] [address] PCP - General Family Practice 10/03/19 Inventory Control Analyst Relationship Specialty Start Date End Date Clarence Rodriguez MD [address] [place] [address], [place] [address] PCP - General Family Practice 10/03/19 Inventory Control Analyst Relationship Specialty Start Date End Date Clarence Rodriguez MD [address] [place] [address], [place] [address] PCP - General Family Medicine 10/03/19 Inventory Control Analyst Relationship Specialty Start Date End Date Clarence Rodriguez MD [address] [place] [address], [place] [address] PCP - General Family Medicine 10/03/19 Inventory Control Analyst Relationship Specialty Start Date End Date Clarence Rodriguez MD [address] [place] [address], [place] [address] PCP - General Family Medicine 10/03/19 Inventory Control Analyst Relationship Specialty Start Date End Date Clarence Rodriguez MD [address] [place] [address], [place] [address] PCP - General Family Medicine 10/03/19 Inventory Control Analyst Relationship Specialty Start Date End Date Clarence Rodriguez MD [address] [place] [address], [place] [address] PCP - General Family Medicine 10/03/19 Inventory Control Analyst Relationship Specialty Start Date End Date Clarence Rodriguez MD [address] [place] [address], [place] [address] PCP - General Family Medicine 10/03/19 Inventory Control Analyst Relationship Specialty Start Date End Date Clarence Rodriguez MD [address] [place] [address], [place] [address] PCP - General Family Medicine 10/03/19 Inventory Control Analyst Relationship Specialty Start Date End Date Clarence Rodriguez MD [address] [place] [address] PCP - General Family Medicine 10/03/19 Inventory Control Analyst Relationship Specialty Start Date End Date Clarence Rodriguez MD [address] [place] [address] PCP - General Family Medicine 10/03/19 Inventory Control Analyst Relationship Specialty Start Date End Date Clarence Rodriguez MD [address] [place] [address] PCP - General Family Medicine 10/03/19 Inventory Control Analyst Relationship Specialty Start Date End Date Clarence Rodriguze MD [address] [place] [address] PCP - General Family Medicine 10/03/19 Inventory Control Analyst Relationship Specialty [place] [address] [place] [address] PCP - General Family Medicine 10/03/19 Inventory Control Analyst Relationship Specialty Start Date End Date Clarence Rodriguez MD [address] [place] [address] PCP - General Family Medicine 10/03/19 Inventory Control Analyst Relationship Specialty Start Date End Date Clarence Rodriguez MD [address] [place] [address] PCP - General Family Medicine 10/03/19 Inventory Control Analyst Relationship Specialty Start Date End Date Clarence Rodriguez MD [address] [place] [address] PCP - General Family Medicine 10/03/19 Inventory Control Analyst Relationship Specialty Start Date End Date Clarence Rodriguez MD [address] [place] [address] PCP - General Family Medicine 10/03/19 Inventory Control Analyst Relationship Specialty Start Date End Date Clarence Rodriguez MD [address] [place] [address] PCP - General Family Medicine 10/03/19 Team [...] Rodriguez MD Attending Provider, Referring Provider Active Inventory Control Analyst Relationship Specialty Start Date End Date Clarence Rodriguez MD [address] [place] [address] PCP - General Family Medicine 10/03/19 Inventory Control Analyst Relationship Specialty Start Date End Date Clarence Rodriguez MD [address] [place] [address] PCP - General Family Medicine 10/03/19 Team Status: Inactive Member Role Status Dates Caryl LONGORIA PA Primary Care Provider Active Dr. Richelle Richards MD Emergency Provider Active Inventory Control Analyst Relationship Specialty Start Date End Date Clarence Rodriguez MD [address] [place] [address] PCP - General Family Medicine 10/03/19 Inventory Control Analyst Relationship Specialty Start Date End Date Clarence Rodriguez MD [address] [place] [address] PCP - General Family Medicine 10/03/19 Inventory Control Analyst Relationship Specialty Start Date End Date Clarence Rodriguez MD [address] [place] [address] PCP - General Family Medicine 10/03/19 Blanca Olivares APRN.DISTRIBUTION DRIVER [address] [place] [address] Design Leader Family Medicine 06/29/24 Caryl Green PA-C [facility] [place] [address] Design Leader Family Medicine 06/29/24 Inventory Control Analyst Relationship Specialty Start Date End Date Clarence Rodriguez MD [address] [place] [address] PCP - General Family Medicine 10/03/19 Blanca Olivares APRN.DISTRIBUTION DRIVER [address] [place] [address] Design Leader Family Medicine 06/29/24 Caryl Green PA-C [address] [place] [address] Design Leader Family Medicine 06/29/24 Team Status: Active Member [...] section and content) DATE CREATED AUTHOR 08/07/2024 [facility] DATE CREATED AUTHOR 'S JOSSELYN MCLEOD 02/05/2025 [facility] FOR RECORDS PERTAINING TO PATIENTS [...] BE BASED ON THE PRIMARY CLINICAL RECORDS. [employer] provides no warranty or guarantee of the accuracy or completeness of information in this document.
== END 2025-02-05 14:30 | disposition home or self-care (01) ==
PROVIDERS: PCP Physician Assistant; Visit Provider Surgery
DX: Z23 Encounter for immunization (principal)
CPT/HCPCS: 90675; 96372

== ENCOUNTER 2025-02-09 12:10 | Outpatient (CLI) | payer OTHER, SELFPAY ==
[2025-02-09 12:12] VITALS: BP 137/85; PULSE 67; RESP 16; TEMP 36.6; O2SAT 100; BMI 29.4
[2025-02-09 12:33] VITALS: BP 130/80; PULSE 60; RESP 16; TEMP 36.6; O2SAT 100; BMI 29.4
--- OUTSIDE RECORDS SUMMARY | 2025-02-09 12:41 | XMS RPT_ITS | CCD ---
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 Chaudhariagen SPECIALTY MOLDER.RN ADMIT Work Phone: [facility] 03-22-2022 13:46-0400 Heart rate 98 /min Nae Domínguez SPECIALTY MOLDER.RN ADMIT Work Phone: [facility] 03-22-2022 13:46-0400 Respiratory rate 18 /min Nae Domínguez SPECIALTY MOLDER.RN ADMIT Work Phone: [facility] 03-22-2022 13:46-0400 SaO2% (BldA) [Mass fraction] 98 % Nae Domínguez SPECIALTY MOLDER.RN ADMIT Work Phone: [facility] 03-22-2022 13:46-0400 Systolic blood pressure 146 mm[Hg] Nae Haceline SPECIALTY MOLDER.RN ADMIT Work Phone: [facility] 03-15-2022 11:19-0400 Body height 187.96 cm [facility] Work Phone: 03-15-2022 11:19-0400 Body mass index (BMI) [Ratio] 43.4 kg/m2 [facility] Work Phone: 03-15-2022 11:190400 Body temperature 97.9 [degF] [facility] Work Phone: 03-15-2022 11:19-0400 Body weight 153.31 kg [facility] Work Phone: 03-15-2022 11:19-0400 Diastolic blood pressure 96 mm[Hg] [facility] Work Phone: 03-15-2022 11:19-0400 Heart rate 89 /min [facility] Work Phone: 03-15-2022 11:19-0400 Respiratory rate 18 /min [facility] Work Phone: 03-15-2022 11:19-0400 SaO2% (BldA) [Mass fraction] 98 % [facility] Work Phone: 03-15-2022 11:19-0400 Systolic blood pressure 148 mm[Hg] [facility] Work Phone: 03-15-2022 11:00-0400 Body temperature 97.5 [degF] Adriana Gutierres SPECIALTY MOLDER.RN ADMIT Work Phone: [facility] 03-15-2022 11:00-0400 Body weight 153.77 kg Adriana Gutierres SPECIALTY MOLDER.RN ADMIT Work Phone: [facility] 03-15-2022 11:00-0400 Diastolic blood pressure 82 mm[Hg] Adriana Gutierres SPECIALTY MOLDER.RN ADMIT Work Phone: [facility] 03-15-2022 11:00-0400 Heart rate 94 /min Adriana Gutierres SPECIALTY MOLDER.RN ADMIT Work Phone: [facility] 03-15-2022 11:00-0400 Respiratory rate 16 /min Adriana Gutierres SPECIALTY MOLDER.RN ADMIT Work Phone: [facility] 03-15-2022 11:00-0400 SaO2% (BldA) [Mass fraction] 97 % Adriana Gutierres SPECIALTY MOLDER.RN ADMIT Work Phone: [facility] 03-15-2022 11:00-0400 Systolic blood pressure 128 mm[Hg] Adriana Gutierres SPECIALTY MOLDER.RN ADMIT Work Phone: [facility] 02-13-2022 19:51-0400 Body height 187.96 cm [facility] Work Phone: 02-13-2022 19:51-0400 Body mass index (BMI) [Ratio] 43.2 kg/m2 [facility] Work Phone: 02-13-2022 19:51-0400 Body temperature 94 [degF] [facility] Work Phone: 02-13-2022 19:51-0400 Body weight 153 kg [facility] Work Phone: 02-13-2022 19:51-0400 Diastolic blood pressure 95 mm[Hg] [facility] Work Phone: 02-13-2022 19:51-0400 Heart rate 95 /min [facility] Work Phone: 02-13-2022 19:51-0400 Respiratory rate 16 /min [facility] Work Phone: 02-13-2022 19:51-0400 SaO2% (BldA) [Mass fraction] 98 % [facility] Work Phone: 02-13-2022 19:51-0400 Systolic blood pressure 147 mm[Hg] [facility] Work Phone: 12-15-2021 12:02-0400 Body temperature 98.1 [degF] Caryl LONGORIA-C Work Phone: [facility] 12-15-2021 12:02-0400 Body weight 150.59 kg Caryl LONGORIA-C Work Phone: [facility] 12-15-2021 12:02-0400 Diastolic blood pressure 86 mm[Hg] Caryl LONGORIA-C Work Phone: [facility] 12-15-2021 12:02-0400 Heart rate 76 /min Caryl Green PA-C Work Phone: [facility] 12-15-2021 12:02-0400 Respiratory rate 18 /min Caryl Green PA-C Work Phone: [facility] 12-15-2021 12:02040 Systolic blood pressure 116 mm[Hg] Caryl Green PA-C Work Phone: [facility] Encounters Encounter Date Encounter Type Care Provider Facility Start: 02-05-2025 End: 02-05-2025 Emergency department patient visit Caryl LONGORIA Work Phone: -Emergency Department Work Phone: Start: 02-05-2025 End: 02-05-2025 ambulatory Caryl Green Facility:[facility] Start: 02-01-2025 End: 2025 Emergency department patient visit Caryl LONGORIA Work Phone: -Emergency Department Work Phone: Start: 08-02-2024 End: 08-02-2024 ambulatory CLARENCE RODRIGUEZ Facility:[facility] Start: 08-02-2024 End: 08-02-2024 Patient encounter procedure Clarence Rodriguez MD Work Phone: [facility] Comment on above: Tonsillitis (Primary Dx); Pharyngitis, unspecified etiology Start: 07-08-2024 End: 07-08-2024 ambulatory CLARENCE RODRIGUEZ Facility:[facility] Start: 07-08-2024 End: 07-08-2024 Office outpatient visit 25 minutes Clarence Giles APRN.RN ADMIT Work Phone: [facility] Comment on above: Sore throat (Primary Dx); Strep pharyngitis Start: 05-29-2024 End: 05-29-2024 ambulatory CLARENCE RODRIGUEZ Facility:[facility] Start: 05-29-2024 End: 05-29-2024 Patient encounter procedure Case Garrett SPECIALTY MOLDER.RN ADMIT Work Phone: [facility] Comment on above: Sore throat (Primary Dx); Acute otitis media, right Start: 11-13-2023 End: 11-13-2023 Emergency department patient visit [facility] Work Phone: Start: 11-13-2023 End: 11-13-2023 ambulatory CLARENCE RODRIGUEZ Facility:[facility] Start: 11-13-2023 End: 11-13-2023 Patient encounter procedure Zuleyma Jovan LIU Work Phone: [facility] Comment on above: Exposure to blood (P rimary Dx) Start: 08-09-2023 End: 08-09-2023 ambulatory CLARENCE RODRIUGEZ Facility:[facility] Start: 05-31-2023 End: 05-31-2023 Patient encounter procedure Clarence Rodriguez MD Work Phone: [facility] [place] Comment on above: GERD without esophag itis (Primary Dx); Encounter for immunization Start: 05-19-2023 Non-patient / Non-visit SWATI LONGORIA Work Phone: [facility] Start: 05-19-2023 End: 05-19-2023 ambulatory SWATI LONGORIA Work Phone: [facility] Work Phone: Start: 05-19-2023 End: 05-19-2023 Patient encounter procedure SWATI LONGORIA Work Phone: [facility] Work Phone: Start: 05-03-2023 ambulatory Clarence miller MD Work Phone: [facility] [place] Comment on above: Wait time Start: 04-20-2023 End: 04-20-2023 Patient encounter procedure Clarence Rodriguez MD Work Phone: [facility] [place] Comment on above: Atypical chest pain (Primary Dx); GERD without esophagitis; Family history of early CAD Start: 04-05-2023 ambulatory Clarence miller MD Work Phone: [facility] [place] Comment on above: Stomach meds Start: 03-04-2023 End: 03-04-2023 Subsequent hospital visit by physician Mo[facility] [place] Work Phone: Radiology Comment on above: Rib pain on left cristóbal e [R07.81] Start: 03-04-2023 End: 03-04-2023 Patient encounter procedure Uma Jimenez SPECIALTY MOLDER.RN ADMIT Work Phone: [facility] Comment on above: Rib pain on left cristóbal e (Primary Dx) Start: 03-03-2023 Telephone encounter Caryl mendoza PA-C Work Phone: [facility] [place] Comment on above: Results Start: 03-01-2023 End: 03-01-2023 Patient encounter procedure Clarence Rdoriguez MD Work Phone: [facility] [place] Comment on above: Well adult exam (Jackie jenny Dx); LOCKHART (nonalcoholic steatohepatitis); SANJAY (generalized anxiety disorder); Panic attack; Screening for diabetes mellitus; Elevated LFTs; GERD without esophagitis; Heat intolerance; Candidiasis Start: 03-01-2023 End: 03-01-2023 Patient encounter status Clarence Rodriguez MD Work Phone: [facility] Work Phone: Start: 01-05-2023 Refill Tayler hussein APRN.RN ADMIT Work Phone: Psychiatry Comment on above: Refill Request Start: 12-21-2022 Telephone encounter Caryl mendoza PA-C Work Phone: [facility] [place] Comment on above: Results Start: 12-20-2022 End: 12-20-2022 Subsequent hospital visit by physician [facility] Work Phone: Radiology Comment on above: Elevated LFTs [R79.8 9] Start: 11-02-2022 Refill Tayler hussein SPECIALTY MOLDER.RN ADMIT Work Phone: Psychiatry Comment on above: Refill Request Start: 10-19-2022 End: 10-19-2022 Patient encounter procedure Josselyn Hay BLAKE.RN ADMIT Work Phone: [facility] Comment on above: Sorethroat (Primary Dx) Start: 09-09-2022 End: 09-09-2022 [facility] Tayler Gonsalez APRN.RN ADMIT Work Phone: Psychiatry Comment on above: Panic disorder witho ut agoraphobia (Primary Dx) Start: 08-04-2022 Refill Tayler Mchugh Roelr u SPECIALTY MOLDER.RN ADMIT Work Phone: Psychiatry Comment on above: Refill Request Start: 07-15-2022 End: 07-15-2022 Distance Health Tayler Gonsalez SPECIALTY MOLDER.RN ADMIT Work Phone: Psychiatry Comment on above: Panic disorder witho ut agoraphobia (Primary Dx) Start: 06-24-2022 Refill Tayler Mchugh Roelr u SPECIALTY MOLDER.RN ADMIT Work Phone: Psychiatry Comment on above: Refill Request Start: 05-10-2022 ambulatory Anuel Mckenna MD Work Phone: Orthopaedics Comment on above: Question regarding M RI SHOULDER WO IVCON LT Start: 05-09-2022 End: 05-09-2022 Subsequent hospital visit by physician [facility]ri [facility] (I-Stat/1.5t) Work Phone: Radiology Comment on above: Acute pain of left s houlder [M25.512] Start: 04-28-2022 End: 04-28-2022 Subsequent hospital visit by physician Xr [facility] [place] [facility] Work Phone: Radiology Comment on above: Acute pain of left s houlder [M25.512] Start: 04-28-2022 End: 04-28-2022 Patient encounter procedure Anuel Mckenna MD Work Phone: Orthopaedics Comment on above: Acute pain of left s houlder (Primary Dx); Traumatic complete tear of left rotator cuff, initial encounter Start: 04-08-2022 Telephone encounter Nae berger APRN.RN ADMIT Work Phone: [facility] [place] Comment on above: Orders Start: 04-07-2022 End: 04-07-2022 ambulatory Cesar Callaway [facility] Physical Therapy Comment on above: Acute pain of left s houlder Start: 03-29-2022 ambulatory Nae Domínguez APRN.RN ADMIT Work Phone: [facility] Medicine [place] Comment on above: Physical therapy Start: 03-25-2022 Telephone encounter Nae berger APRN.RN ADMIT Work Phone: [facility] Comment on above: Results Start: 03-23-2022 ambulatory Nae Domínguez SPECIALTY MOLDER.RN ADMIT Work Phone: [facility] Comment on above: Pain relief Start: 03-22-2022 End: 03-22-2022 ambulatory [facility] Work Phone: Start: 03-22-2022 End: 03-22-2022 Patient encounter procedure [facility]Cat Scan, [facility] Start: 03-22-2022 Telephone encounter Nae berger SPECIALTY MOLDER.RN ADMIT Work Phone: [facility] Comment on above: Results Start: 03-22-2022 End: 03-22-2022 Office outpatient visit 25 minutes Nae Domínguez APRN.RN ADMIT Work Phone: [facility] Comment on above: Flank pain (Primary Dx); Acute cystitis with hematuria; Acute pain of left shoulder Start: 03-15-2022 End: 03-15-2022 Emergency department patient visit [facility]Emergency Department Start: 03-15-2022 End: 03-15-2022 Patient encounter procedure Adriana Gutierres SPECIALTY MOLDER.RN ADMIT Work Phone: [facility] Comment on above: Injury of head, init ial encounter (Primary Dx); Accident caused by farm tractor, initial encounter Start: 02-21-2022 End: 02-21-2022 [facility] Tayler Gonsalez SPECIALTY MOLDER.RN ADMIT Work Phone: Psychiatry Comment on above: Panic disorder witho ut agoraphobia (Primary Dx) Start: 02-13-2022 End: 02-13-2022 Emergency department patient visit [facility]Emergency [facility] Start: 01-21-2022 End: 01-21-2022 Patient encounter procedure Grey Barkley VICE PRESIDENT OF [employer]ODUCT MARKETING Work Phone: Psychology Comment on above: Severe anxiety (Prim sabrina Dx); Mild depression Start: 01-10-2022 Telephone encounter Grey workman VICE PRESIDENT [employer]ODUCT MARKETING Work Phone: Psychology Comment on above: Consult ([facility] C justino) Start: 12-30-2021 Telephone encounter Grey workman VICE PRESIDENT OF PRODUCT MARKETING Work Phone: Psychology Comment on above: Consult ([facility] C alltrinity) Start: 12-28-2021 Telephone encounter Grey workman VICE PRESIDENT OF [employer]ODUCT MARKETING Work Phone: Psychology Comment on above: Consult ([facility] Pt Out reach F/U) Start: 12-27-2021 Telephone encounter Grey workman VICE PRESIDENT OF [employer] MARKETING Work Phone: Psychology Comment on above: Consult ([facility] Pt Out reach F/U) Start: 12-23-2021 Telephone encounter Clarence Rodriguez MD Work Phone: [facility] [place] Comment on above: Patient Question Start: 12-22-2021 Telephone encounter Grey workman VICE PRESIDENT [employer]ODUCT MARKETING Work Phone: Psychology Comment on above: Consult (Initial [facility] W Pt Outreach) Start: 12-21-2021 Telephone encounter Clarence Rodriguez MD Work Phone: [facility] [place] Comment on above: Patient Update; Medi cation Problem Patient Update Start: 12-15-2021 End: 12-15-2021 Patient encounter procedure Caryl Green PA-C Work Phone: [facility] [place] Comment on above: SAJNAY (generalized anx iety disorder) (Primary Dx); Panic attack; Seasonal allergic rhinitis, unspecified trigger Start: 12-10-2021 Telephone encounter Caryl mendoza PA-C Work Phone: [facility] [place] Comment on above: Medication Question Start: 12-02-2021 Refill Clarence miller MD Work Phone: [facility] [place] Comment on above: Refill Request Refill Start: 03-19-2021 Patient encounter status Clarence Rodriguez MD Work Phone: [facility] Work Phone: Procedures Date Procedure Procedure Detail Performing Clinician Start: 07-08-2024 STREP A MOLECULAR (POC) Onel Chambers MD Work Phone: Start: 05-29-2024 STREP A MOLECULAR (POC) Adriana Gutierres SPECIALTY MOLDER.RN ADMIT Work Phone: Start: 05-31-2023 INFLUENZA VACCINE, A GE 6 MO - 64 YR, QUADRIVALENT (AFLURIA, FLULAVAL, FLUZONE) Clarence Rodriguez MD Work Phone: Start: 03-04-2023 Radex ribs uni w/pos teroant ch minimum 3 views Uma Jimenez SPECIALTY MOLDER.RN ADMIT Work Phone: Start: 12-20-2022 Us abdominal real [...] et rgnt auto w/o microscopy Nae Domínguez SPECIALTY MOLDER.RN ADMIT Work Phone: Start: 03-15-2022 X-ray of chest posteroanterior view Start: 03-15-2022 Plain X-ray of shoulder Start: 02-13-2022 Plain x-ray of hand Plan of Treatment Date Care Activity Detail Author Start: 02-14-2032 Urine microalbumin profile DTaP,Tdap,Td Vaccine (10 - Td or Tdap) [facility] Start: 01-04-2031 Urine microalbumin profile [facility] Start: 2025 [facility] Start: 03-24-2024 Covid-19 Vaccine ( season) Covid-19 Vaccine ( season) [facility] Start: 03-24-2024 Covid-19 Vaccine ( season) Covid-19 Vaccine ( season) [facility] Start: 03-24-2024 Influenza vaccination Influenza Vacc ine (#1) [facility] Start: 12-13-2023 COVID-19 VACCINE (#1) COVID-19 VACCI NE (#1) [facility] Comment on above: Postponed from 08/05 (Declined at this time) Start: 11-13-2023 [facility] Start: 11-13-2023 Hepatitis B surface antigen measurement [facility] Start: 11-13-2023 Hepatitis C antibody measurement [facility] Start: 07-24-2023 Behavioral Health Screening Behavioral Health Screening [facility] Start: 07-23-2023 DEPRESSION ASSESSMENT DEPRESSION ASS [facility] Comment on above: Postponed from 07/24 (Declined at this time) Start: 03-24-2023 Covid-19 Vaccine () Covid-19 Vaccine () [facility] Start: 03-24-2023 Influenza vaccination [facility] Start: 12-21-2022 End: 02-20-2023 LIPID PANEL, NONFASTING LIPID PANEL, NONFASTING Lab Routine Fatty liver Encounter for lipid screening for cardiovascular disease Expected: 12/21/2022, Expires: 02/20/2023 [facility] Work Phone: Comment on above: Expected: 12/21/2022 , Expires: 02/20/2023 Start: 07-24-2022 [facility] Start: 03-24-2022 Influenza vaccination [facility] Start: 03-22-2022 End: 05-22-2022 CBC W Auto Differential panel - Blood CBC + DIFF Lab STAT Flank pain Expected: 03/22/2022, Expires: 05/22/2022 [facility] Work Phone: Comment on above: Expected: 03/22/2022 , Expires: 05/22/2022 Start: 03-22-2022 End: 05-22-2022 Comprehensive metabolic 2000 panel - Serum or Plasma COMP METABOLIC PANEL Lab STAT Flank pain Expected: 03/22/2022, Expires: 05/22/2022 [facility] Work Phone: Comment on above: Expected: 03/22/2022 , Expires: 05/22/2022 Start: 01-04-2022 COVID-19 VACCINE (#1) COVID-19 VACCI NE (#1) [facility] Comment on above: Postponed from 02/02 (Declined at this time) Start: 01-04-2022 HEPATITIS C SCREENING HEPATITIS C [facility] Comment on above: Postponed from 02/02 (Declined at this time) Start: 07-24-2021 DEPRESSION ASSESSMENT DEPRESSION ASS ESSMENT [facility] Start: 2013 Depression Screening Depression Scre ening [facility] Start: 2013 HEPATITIS C SCREENING HEPATITIS C [facility] Start: 2009 PEDS TO ADULT TRANSITION ANNUAL ASSESSMENT PEDS TO ADULT TRANSITION ANNUAL ASSESSMENT [facility] Start: 2007 PEDS TO ADULT TRANSITION INITIAL DISCUSSION PEDS TO ADULT TRANSITION INITIAL DISCUSSION [facility] Start: 2006 HPV VACCINE (1 - Mal e 2-dose series) HPV VACCINE (1 - Male 2-dose series) [facility] Start: 02-03-2000 COVID-19 VACCINE (#1) COVID-19 VACCI NE (#1) [facility] Start: 1995 COVID-19 VACCINE (#1) COVID-19 VACCI NE (#1) [facility] Bacteria identified in Urine by Culture URINE CULTURE Microbiology Routine Flank pain 03/22/2022 2:36 PM EDT [facility] Work Phone: End: 04-21-2023 Ct abdomen & pelvis w/o contrast material CT ABD/PEL WO IVCON Radiology STAT Flank pain 1 Occurrences starting 03/22/2022 until 04/21/2023 [facility] Work Phone: Comment on above: 1 Occurrences starti ng 03/22/2022 until 04/21/2023 End: 04-20-2024 ECG COMPLETE ECG COMPLETE ECG Routine Atypical chest pain 1 Occurrences starting 04/20/2023 until 04/20/2024 [facility] Work Phone: Comment on above: 1 Occurrences starti ng 04/20/2023 until 04/20/2024 End: 04-20-2024 EXERCISE STRESS ECG (WITHOUT IMAGING) EXERCISE STRESS ECG (WITHOUT IMAGING) Cardiology Routine Atypical chest pain Family history of early CAD 1 Occurrences starting 04/20/2023 until 04/20/2024 [facility] Work Phone: Comment on above: 1 Occurrences starti ng 04/20/2023 until 04/20/2024 Hepatitis B virus surface IgG Ab [Presence] in Serum [facility] HIV 1+2 Ab+HIV1 p24 Ag [Presence] in Serum or Plasma by Immunoassay [facility] Patient Education [facility] Work Phone: Patient referral [facility] Work Phone: Urinalysis complete panel - Urine URINALYSIS, WITH MICROSCOPIC Lab Routine Flank pain 03/22/2022 2:36 PM EDT [facility] Work Phone: XR SHOULDER GENERAL 3V OR MORE AP/TRUE AP/OTHER LEFT XR SHOULDER GENERAL 3V OR MORE AP/TRUE AP/OTHER LEFT Radiology Routine Acute pain of left shoulder 04/28/2022 11:45 AM EDT [facility] Work Phone: [facility] Immunizations Immunization Date Immunization Notes Care Provider Cheyanne palacios 02-05-2025 rabies vaccine, for intramuscular injection Caryl LONGORIA Work Phone: [facility] 2025 rabies immune globulin Patricia LONGORIA Work Phone: [facility] 2025 rabies vaccine, for intramuscular injection Caryl LONGORIA Work Phone: [facility] 2025 tetanus toxoid, redu yanira diphtheria toxoid, and acellular pertussis vaccine, adsorbed Caryl LONGORIA Work Phone: [facility] 05-31-2023 influenza, injectabl e, quadrivalent, contains preservative Clarence Rodriguez MD Work Phone: [facility] 05-31-2023 influenza virus vacc ine, unspecified formulation [facility] [place] Work Phone: [facility] 02-13-2022 tetanus toxoid, redu yanira diphtheria toxoid, and acellular pertussis vaccine, adsorbed [facility] 01-04-2021 tetanus toxoid, redu yanira diphtheria toxoid, and acellular pertussis vaccine, adsorbed Clarence Rodriguez MD Work Phone: [facility] 06-14-2019 influenza virus vacc ine, unspecified formulation Clarence Rodriguez MD Work Phone: [facility] 05-24-2019 Influenza virus vaccine [facility] 05-14-2016 tetanus toxoid, redu yanira diphtheria toxoid, and acellular pertussis vaccine, adsorbed Clarence Rodriguez MD Work Phone: [facility] 01-31-2011 hepatitis A vaccine, unspecified formulation Clarence Rodriguez MD Work Phone: [facility] Work Phone: 02-18-2009 hepatitis A vaccine, unspecified formulation Clarence Rodriguez MD Work Phone: [facility] Work Phone: 02-18-2009 Meningococcal, MCV4, unspecified conjugate formulation(groups A, C, Y and W-[id number]) Clarence Rodriguez MD Work Phone: [facility] Work Phone: 02-21-2006 tetanus toxoid, redu yanira diphtheria toxoid, and acellular pertussis vaccine, adsorbed Clarence Rodriguez MD Work Phone: [facility] Work Phone: 07-04-2003 influenza virus vacc ine, unspecified formulation Clarence Rodriguez MD Work Phone: [facility] Work Phone: 03-03-2000 diphtheria, tetanus toxoids and acellular pertussis vaccine Clarence Rodriguez MD Work Phone: [facility] Work Phone: 03-03-2000 measles, mumps and rubella virus vaccine Clarence Rodriguez MD Work Phone: [facility] Work Phone: 03-03-2000 poliovirus vaccine, inactivated Clarence Rodriguez MD Work Phone: [facility] Work Phone: 07-24-1997 Chicken Pox (disease) Alex Rodriguez MD Work Phone: [facility] Work Phone: 05-07-1996 diphtheria, tetanus toxoids and acellular pertussis vaccine Clarence Rodriguez MD Work Phone: [facility] Work Phone: 05-07-1996 haemophilus influenz ae type b vaccine, HbOC conjugate Clarence Rodriguez MD Work Phone: [facility] Work Phone: 02-28-1996 measles, mumps and rubella virus vaccine Clarence Rodriguez MD Work Phone: [facility] Work Phone: 1995 diphtheria, tetanus toxoids and acellular pertussis vaccine Clarence Rodriguez MD Work Phone: [facility] Work Phone: 1995 haemophilus influenz ae type b vaccine, HbOC conjugate Clarence Rodriguez MD Work Phone: [facility] Work Phone: 1995 hepatitis B vaccine, pediatric or pediatric/adolescent dosage Clarence Rodriguez MD Work Phone: [facility] Work Phone: 1995 trivalent poliovirus vaccine, live, oral Clarence Rodriguez MD Work Phone: [facility] Work Phone: 1995 diphtheria, tetanus toxoids and acellular pertussis vaccine Clarence Rodriguez MD Work Phone: [facility] Work Phone: 1995 haemophilus influenz ae type b vaccine, HbOC conjugate Clarence Rodriguez MD Work Phone: [facility] Work Phone: 1995 trivalent poliovirus vaccine, live, oral Clarence Rodriguez MD Work Phone: [facility] Work Phone: 1995 diphtheria, tetanus toxoids and acellular pertussis vaccine Clarence Rodriguez MD Work Phone: [facility] Work Phone: 1995 haemophilus influenz ae type b vaccine, HbOC conjugate Clarence Rodriguez MD Work Phone: [facility] Work Phone: 1995 hepatitis B vaccine, pediatric or pediatric/adolescent dosage Clarence Rodriguez MD Work Phone: [facility] Work Phone: 1995 trivalent poliovirus vaccine, live, oral Clarence Rodriguez MD Work Phone: [facility] Work Phone: 1995 hepatitis B vaccine, pediatric or pediatric/adolescent dosage Clarence Rodriguez MD Work Phone: [facility] Work Phone: Payers Date Payer Category Payer Self-pay [id number] 2022 Unknown [id number] 2021 Unknown [id number] 2021 Unknown [id number] 2016 Medicaid [id number] Private Health Insurance [id number] Unknown [id number] Unknown [id number] Unknown [id number] Unknown [id number] Social History Date Type Detail Facility Start: 02-24-2011 End: 02-01-2025 Tobacco smoking status NHIS Never smoked tobacco [facility] Start: 08-12-2021 End: 08-02-2024 Alcohol intake Current non-drinker of alcohol (finding) [facility] Start: 09-16-2019 End: 12-12-2022 History SDOH Alcohol Frequency 1 [facility] Start: 09-16-2019 End: 12-12-2022 History SDOH Alcohol Std Drinks 98 [facility] Start: 07-25-2019 End: 12-12-2022 History SDOH Social Connections Phone 5 [facility] Start: 07-25-2019 End: 12-12-2022 History SDOH Social Connections Membership 2 [facility] Start: 07-25-2019 End: 12-12-2022 History SDOH Social Connections Living 3 [facility] Start: 07-25-2019 End: 12-12-2022 History SDOH Physical Activity MPS 6 [facility] Start: 07-25-2019 Education 12 [facility] Start: 1995 Sex Assigned At Male [facility] Start: 12-05-2021 End: 05-26-2022 Exposure to SARS-CoV-2 (event) Not sure [facility] Start: 02-13-2022 End: 11-13-2023 Tobacco smoking status NHIS Unknown if ever smoked [facility] Start: 07-18-2019 None [facility] Start: 07-18-2019 Spouse/ Significant Other;With Family [facility] Start: 11-24-2020 Chew [facility] Start: 02-24-2011 End: 03-22-2022 Tobacco use and exposure Smokeless tobacco non-user [facility] Start: 04-28-2022 Tobacco use and exposure User of smokeless tobacco [facility] Start: 12-12-2022 History SDOH Alcohol Std Drinks 0 [facility] Start: 03-01-2023 Tobacco use and exposure Former smokeless tobacco user [facility] Work Phone: End: 02-20-2023 History of tobacco use Chews Tobacco [facility] Work Phone: Start: 12-11-2022 End: 08-02-2024 History of Social function [facility] Start: 12-11-2022 End: 08-02-2024 Social connection and isolation panel [facility] Do you belong to any clubs or organizations such as christian groups, unions, fraternal or athletic groups, or school groups? No [facility] How often do you att end meetings of the clubs or organizations you belong to? Patient refused [facility] Are you now , , , , never or living with a partner? [facility] How often to you hav e a drink containing alcohol? Never [facility] Do you feel stress - tense, restless, nervous, or anxious, or unable to sleep at night because your mind is troubled all the time - these days [OSQ] Very much [facility] (I/We) worried wheth er (my/our) food would run out before (I/we) got money to buy more. Never true [facility] Start: 12-18-2020 Gender identity Identifies as male gender (finding) [facility] Start: 12-18-2020 Sexual orientation Heterosexual (finding) [facility] Clinical Notes 08-16-2019 to 08-02-2024 Clarence Rodriguez MD - 08/02/2024 10:23 AM Clarence Santillan APRN.RN ADMIT - 07/08/2024 7:54 AM Case Jean Baptiste APRN.RN ADMIT - 05/29/2024 2:57 PM Clarence [place] MD - 05/31/2023 5:56 PM EST Note Date & Type Note Facility 08-02-2024 Note HNO ID: [id number] Author: CLARENCE RODRIGUEZ MD Service: ? Author [...] Relation Age of Onset Heart Maternal Grandfather [place] Hypertension Mother None Father Heart Maternal Uncle [...] to ENT for tonsillectomy. Clarence Rodriguez MD [facility] 08-02-2024 History of Presen t illness Narrative [...] sensation 08/16/2019 improved with treatment of anxiety LCOKHART (nonalcoholic steatohepatitis) 03/01/2023 Obesity, Class II, BMI [...] Relation Age of Onset Heart Maternal Grandfather [place] Hypertension Mother None Father Heart Maternal Uncle [...] Clarence Rodriguez MD documented in this encounter [facility] 07-08-2024 Note HNO ID: [id number] Author: CLARENCE GILES APRN.RN ADMIT Service: ? Author Type: Nurse Practitioner Type: [...] Relation Age of Onset Heart Maternal Grandfather [place] Hypertension Mother None Father Heart Maternal Uncle [...] amoxicillin. Patient was (more content not included)... [facility] 07-08-2024 History of Presen t illness Narrative [...] Relation Age of Onset Heart Maternal Grandfather [place] Hypertension Mother None Father Heart Maternal Uncle [...] of care. This note was generated using En Noir software. It may contain errors in wording, punctuation, or spelling. Clarence Giles APRN.RN ADMIT documented in this encounter [facility] 05-29-2024 Note HNO ID: [id number] Author: CASE GARRETT APRN.VINITA Service: ? Author Type: Nurse Practitioner Type: Progress Notes Filed: 05/29/2024 15:04 Note Text: This note was created using [employer]. Subjective Aldair Yepez is a 29 year [...] - AMOXICILLIN 875 MG TABLET Case Garrett APRN.[facility] 05-29-2024 History of Presen t illness Narrative This note was created using [employer]. Subjective Aldair Yepez is a 29 year [...] - AMOXICILLIN 875 MG TABLET Case Garrett APRN.RN ADMIT documented in this encounter [facility] 11-13-2023 Note HNO ID: [id number] Author: ZULEYMA ALDANA APRN.VINITA Service: ? Author [...] Relation Age of Onset Heart Maternal Grandfather [place] Hypertension Mother None Father Heart Maternal Uncle [...] go to ER as advised. Zuleyma Aldana APRN.[facility] 11-13-2023 History of Presen t illness [...] Relation Age of Onset Heart Maternal Grandfather [place] Hypertension Mother None Father Heart Maternal Uncle [...] go to ER as advised. Zuleyma Aldana APRN.RN ADMIT documented in this encounter [facility] 08-09-2023 Note HNO ID: [id number] Author: CLARENCE RODRIGUEZ MD Service: ? Author [...] and a maternal grandfather who of a MN in either his 40-50's. Past medical history, [...] Relation Age of Onset Heart Maternal Grandfather [place] Hypertension Mother None Father Heart Maternal Uncle [...] Tdap) due on (more content not included)... [facility] 05-31-2023 History of Presen t illness Narrative [...] and a maternal grandfather who of a MN in either his 40-50's. Patient does not [...] Relation Age of Onset Heart Maternal Grandfather [place] Hypertension Mother None Father Heart Maternal Uncle [...] Clarence Rodriguez MD documented in this encounter [facility] 05-05-2023 Miscellaneous Notes Order was faxed by isma and put into filing cabinet Patient notified and given scheduling number for [facility] if not contacted Appointment was made for 4 weeks Karen Novak Ma Form ready to be faxed. Let patient know we are sending order for stress to [facility]. Patient needs a f/u visit for GERD in about 4 weeks Form completed and given to provider. And referral placed Patricia Carpenter MA Isma can we fax an order over to [facility] to do a treadmill stress test. Dx: R07.89 and Z82.49 Patient needs a f/u visit for GERD in about [address] Rodriguez: No future stress test or 3-4 week f/u for GERD/chest pain scheduled in at this time. Wilda Burgess MA documented in this encounter [facility] 04-20-2023 History of Presen t illness [...] and a maternal grandfather who of a MN in either his 40-50's. Patient does not [...] Relation Age of Onset Heart Maternal Grandfather [place] Hypertension Mother None Father Heart Maternal Uncle [...] Clarence Rodriguez MD documented in this encounter [facility] 04-12-2023 Miscellaneous Notes Pt has appointment scheduled with Caryl 04/20/23. Vika [place] LPN Attempted to schedule pt for office visit but was unable to do so d/t insurance (reached denial tree). Pt advised to contact office to speak with scheduling for appt. Michael [place] LPN Patient will need seen in office. documented in this encounter [facility] 03-04-2023 History of Presen t illness [...] 2023 10:02 AM documented in this encounter [facility] 03-04-2023 History of Presen t illness Narrative Images from the original note were not included. Subjective The history is provided by the patient. No english language learner tutor was used. HPI Aldair Yepez is a [...] have confirmed and edited as necessary, the [facility] Review of Systems Constitutional: Negative for [...] detail warranting prompt ER evaluation. Uma Jimenez APRN.RN ADMIT documented in this encounter [facility] 03-03-2023 Miscellaneous Notes Patient notified of results and provider's instructions. Patient verbalizes understanding. Vika [place] LPN Let patient know that overall labs look okay/stable. Keep working on diet and weight loss to help with cholesterol and fatty liver. Caryl Green PA-C documented in this encounter [facility] 03-01-2023 Instructions Clarence Rodriguez MD - 03/01/2023 4:45 PM EDT Please get labs done on or after 08/18/2023 prior to your next visit. documented in this encounter [facility] 03-01-2023 History of Presen t illness [...] Relation Age of Onset Heart Maternal Grandfather [place] Hypertension Mother None Father Heart Maternal Uncle [...] Abs Lymph 1.00 - 4.00 k/uL 1.59 Boyle% % 8.9 Abs Boyle <0.87 k/uL 0.62 Eosin% % 4.4 Abs [...] Clarence Rodriguez MD documented in this encounter [facility] 01-06-2023 Miscellaneous Notes Patient has been [...] Beth Murphy LPN documented in this encounter [facility] 12-21-2022 Miscellaneous Notes Spoke with patient. Given message from provider's office. Patient verbalizes understanding. Alia Nuñez RN Called and left a voicemail for the Patient to call back and ask for a nurse to receive the providers message. Kylah Fya RN US shows fatty liver which can lead to cirrhosis. Need to work on diet and weight loss to help this. Continue with repeat labs in a couple weeks. I'm adding a cholesterol panel since it's been a couple years since last checked. Caryl Green PA-C documented in this encounter [facility] 12-20-2022 History of Presen t illness [...] 2022 11:04 AM documented in this encounter [facility] 11-03-2022 Miscellaneous Notes Patient has been [...] Beth Murphy LPN documented in this encounter [facility] 10-19-2022 History of Presen t illness [...] Relation Age of Onset Heart Maternal Grandfather [place] Hypertension Mother None Father Heart Maternal Uncle [...] Josselyn Hay APRN.CNP documented in this encounter [facility] 09-09-2022 Instructions Tayler Gonsalez APRN.CNP - [...] - Call the National Suicide Hotline at 8-546-VEOCWLU ( ) or 9-153-538-TALK (7569) - Text 9OXLO to 983056 Medication Update: Stop Paxil. Venlafaxine 150 mg XR - take 1 capsule once daily. Propranolol 40 mg - take 1 tablet up to twice daily as needed. Next appointment: --Schedule in 4 to 6 weeks or sooner if needed -- You may call the department appointment line at [phone] to schedule your appointment. -- Please call my nurse Mary Beth at [phone] or send me a message in Appiny with any questions or concerns between appointments. documented in this encounter [facility] 09-09-2022 History of Presen t illness [...] which included preparing to see the patient, [id number] patient care, completing clinical documentation, and counseling and educating the patient/family/caregiver, ordering medications/labs. Tayler Gonsalez APRN.[facility] September 09, 2022 3:29 PM This note was partially generated using En Noir voice recognition system. Note was reviewed for accuracy. There may be minor misspellings or grammar miscues with [employer] voice recognition. documented in this encounter [facility] 08-05-2022 Miscellaneous Notes Patient notified and [...] advise. Thank you. documented in this encounter [facility] 07-15-2022 Instructions Tayler Gonsalez APRN.CNP - [...] - Call the National Suicide Hotline at 0-462-KPLARPG ( ) or 0-422-579-TALK (6867) - Text 4HOPE to 849087 Medication Update: Starting today, decrease Paxil to [...] may call the department appointment line at [phone] to schedule your appointment. -- Please call my nurse Mary Beth at [phone] or send me a message in Appiny with any questions or concerns between appointments. documented in this encounter [facility] 07-15-2022 History of Presen t illness [...] panic attacks if he tries to leave [place]. Propranolol only helped for a short time [...] which included preparing to see the patient, [id number] patient care, completing clinical documentation, and counseling and educating the patient/family/caregiver, ordering medications/labs. Tayler Gonsalez APRN.CNP July 15, 2022 2:56 PM This note was partially generated using En Noir voice recognition system. Note was reviewed for accuracy. There may be minor misspellings or grammar miscues with En Noir voice recognition. documented in this encounter [facility] 06-24-2022 Miscellaneous Notes Patient's spouse requesting [...] Devi Gross RN documented in this encounter [facility] 05-09-2022 History of Presen t illness [...] 2022 11:44 AM documented in this encounter [facility] 04-28-2022 History of Presen t illness [...] 2022 11:36 AM documented in this encounter [facility] 04-28-2022 History of Presen t illness Narrative Anuel Mckenna MD Department of Orthopaedics Orthopaed[facility] [address] [facility] [address] Dept: [phone] Dept April 28, 2022 CHIEF COMPLAINT: New and Pain of the Left Shoulder HPI Patient here today for left shoulder pain x 1.5 months. 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 He was seen at [facility] after the injury. He was referred [...] age indeterminate fracture in the greater tuberosity. Band Teacher: PSCB Transcribe Date/Time: Apr 29 2022 2:28P [...] Relation Age of Onset Heart Maternal Grandfather [place] Hypertension Mother None Father Heart Maternal Uncle [...] electronic medical record. Anuel Mckenna [address] [facility] [address] Clarence Rodriguez MD [address] [facility] [address] Anuel Mckenna MD documented in this encounter [facility] 04-08-2022 Miscellaneous Notes Received a message from PT. Concerned about a significant rotator cuff tear. Referral placed for ortho. Encouraged to schedule back for follow-up. Nae Domínguez APRN.CNP documented in this encounter [facility] 04-07-2022 History of Presen t illness [...] further evaluation from primary care physician or personnel placement specialist for further imaging and updated plan of care. Goals for Episode of Care: created on 04/07/22 through 05/07/22 Izard in home exercise program. Patient will decrease pain rating by 2 points to meet minimal clinical important difference for numeric pain rating scale. Perform ADL's with decreased report of symptoms/pain in 12 weeks. Perform work tasks and functions without pain. Planned Interventions, Frequency, and Duration: Current Frequency: 2x/week Duration: 4 weeks Total Number of Visits Planned: 8 Planned Treatment Interventions: Therapeutic exercise (27238);Neuromuscular re-education (82580);Manual therapy (92899);Therapeutic activities (51579);Self-shelter management (07896) PLAN FOR NEXT VISIT: Pt to follow up with PCP or personnel placement specialist Patient demonstrates good understanding of plan of care and treatment. The above goals and plan of care were discussed and agreed upon by patient/family. 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 Please help schedule. Nae Domínguez APRN.VINITA Ok to order PT for shoulder? Or do you want pt to come in again? documented in this encounter [facility] 03-29-2022 Miscellaneous Notes See MC message. [...] Nae Domínguez APRN.VINITA documented in this encounter [facility] 03-23-2022 Miscellaneous Notes Pt notified. He [...] pain medication is not helping. Was given Jewett. Urine Cx in process. Nhi Rueda Ma documented in this encounter [facility] 03-23-2022 Miscellaneous Notes MC message's read [...] note were not included. Labs copied from IdenIve: message to pt. Michael [place] LPN Can please let patient know that I received his CT results from [facility]. Thankfully, everything looked normal. He does [...] Nae Domínguez APRN.VINITA documented in this encounter [facility] 03-22-2022 History of Presen t illness Narrative This is a 27 year old male who presents today with: Patient presents with: ER F/U: [facility] ER follow up 03/15 dx: mower rolled over on him HISTORY OF PRESENT ILLNESS: Aldair Yepez is a 27 year old male. Patient presents with: ER F/U: [facility] ER follow up 03/15 dx: mower [...] Relation Age of Onset Heart Maternal Grandfather [place] Hypertension Mother None Father Heart Maternal Uncle [...] APRN.VINITA This note was partially generated using En Noir voice recognition system. Note was reviewed for accuracy. There may be minor misspellings or grammar miscues with [employer] Noir voice recognition. 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 States that it tipped, He ultimately fell [...] ED Declines EMS. documented in this encounter [facility] 02-21-2022 Instructions Tayler Gonsalez APRN.CNP - [...] - Call the National Suicide Hotline at 2-913-OTSVXXQ ( ) or 4-548-795-TALK (3183) - Text 6ZDBE to 635625 Medication Update: - Paxil 40 mg - [...] may call the department appointment line at [phone] to schedule your appointment. -- Please call my nurse Mary Beth at [phone] or send me a message in Appiny with any questions or concerns between appointments. documented in this encounter [facility] 02-21-2022 History of Presen t illness [...] town or anything. HPI: Per Grey Barkley, [facility]'s note of 01/21/2022: Pt is a 26yr [...] anxiety when he is trying to leave [place]. When he starts to leave town, he [...] None Phobias: no irrational fears Memory: Good, intermediate manager. Okay short term. Anxiety: high when he [...] Reason for hospitalization/Length of Stay: N/A Psychiatrist/ RN ADMIT: seen by psychiatrist x1 at [facility], no meds prescribed Therapist: seeing counselor at [facility], x1 wkly Insole Tacker: None Mental Health Agency[facility]Practice[facility] Did you the previous treatment helpful? Not helpful ECT: no Previous Discontinued Psychiatric Med Trials: See HPI Per Grey Barkley [facility]'s note of 01/21/2022: SUBSTANCE USE HISTORY: Nicotine: [...] N/A, No history of use or dependence M1 Armor Crewman : N/A, No history of use or dependence Previous Treatments/ AA, NA, CA, etc.: denies Have you ever practiced sobriety: Not Applicable Are you interested in CD treatment? 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 denied any past legal history SPIRITUALITY/CONFUCIANIST: [employer] FAMILY PSYCHIATRIC/SUBSTANCE USE HISTORY: Sister-Anxiety Disorder and [...] which included preparing to see the patient, [id number] patient care, completing clinical documentation, obtaining and/or reviewing separately obtained history, counseling and educating the patient/family/caregiver, ordering medications, tests, or procedures, communicating with other HCPs (not separately reported) and independently interpreting results (not separately reported). ADD ON PSYCHOTHERAPY CODE : No SIGNATURE: Tayler Gonsalez APRN.CNP PATIENT NAME: Aldair Yepez DATE: February 21, 2022 TIME: 8:20 AM PAGER : documented in this encounter [facility] 01-21-2022 History of Presen t illness Narrative Behavioral Health Social Work Assessment Patient was seen for an initial evaluation. All information is from patient report except when noted. This evaluation is NOT intended for forensic, disability, or child custody purposes. Informed consent was discussed and signed by the patient. -Pt was sent GENWI with consent for tx -Pt read GENWI, agreed [facility] Assessment: Virtual *Pt lost connection after 40 minutes -unable to reconnect -completed assessment via phone Pt location: In [facility] location: [place] PRESENT: Self Patient identified for [facility] from: PCP (Caryl Green, Chu) Reason for referral: [facility] Assessment (failed mental health tx, SANJAY,panic) [facility] encounter type: Virtual Visit Attempts to Outreach: [...] to cont with current counselor -will inform [facility] [facility] of his decision Medical History: PAST MEDICAL [...] OF EDUCATION: High School Diploma 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 denied any past legal history SPIRITUALITY/CONFUCIANIST: Pentecostal PFSH: Patient was born and raised in [place], [place], patient is the middle of 3 [...] Reason for hospitalization/Length of Stay: N/A Psychiatrist/ RN ADMIT: seen by psychiatrist x1 at [facility], no meds prescribed Therapist: seeing counselor at [facility], x1 wkly Insole Tacker: None Mental Health Agency/Practice: [facility] Did [...] N/A, No history of use or dependence M1 Armor Crewman : N/A, No history of use or [...] and 8 0 (none) to 10 (worst) [id number] Mood: positive for the most part Affect: [...] for anxiety, leaving town -seeing counselor from [facility] wkly, not helpful -saw psychiatrist x1 from [facility], no meds prescribed -interested in seeing psych ed transporter Plan: -Pt was scheduled with Tayler Gonsalez [...] to cont with current counselor -will inform [facility] of his decision [facility] will send Pt Mary Beth's number, to contact her once financially cleared DIAGNOSIS: PRIMARY: 1: Anxiety Disorder severe Other: Depressive D/O mild RESOURCES PROVIDED: Internal: psychiatry External- has counselor at [facility], seen x1 wkly OTHER- N/A In case of a mental health emergency, contact Crisis line [phone] or report to your closest ER. MANSOOR De La Vega documented in this encounter [facility] 01-10-2022 Miscellaneous Notes Behavioral Health Social Work Progress Note Patient identified for [facility] from: PCP (Chu Zhao) Reason for referral: [facility] Assessment (failed mental health tx, SANJAY,panic) [facility] encounter type: Telephone Encounter Attempts to Outreach: [...] appt -wants to have Pt see psych ed transporter without having to see [facility] -anxiety is getting worse [facility] sent msg to psych ed transporter -her 1st available is mid to last January and was advised for Pt to keep bh assessment [facility] contacted Pt's -informed her needs to keep bh assessment - requested to sched psych ed transporter appt now -informed Pt will still need to keep bh assessment - agreed [facility] sent msg to psych ed transporter -Pt is allowed to sched psych ed transporter prior to completing bh assessment -if does not complete bh assessment psych ed transporter appt will automatically be cancelled -contacted INOCENTE [place], to contact to sched with Tayler Gonsalez CNP -she agreed to contact [facility] contacted Pt's and informed of the above -she agreed [facility] pointed out due to needing financial clearance of each visit the appt may not be able to be scheduled MANSOOR De La Vega January 10, 2022 documented in this encounter [facility] 12-30-2021 Miscellaneous Notes Behavioral Health Social Work Progress Note Patient identified for [facility] from: PCP (Chu Zhao) Reason for referral: SW Assessment (failed mental health tx, SANJAY,panic) [facility] encounter type: Telephone Encounter Attempts to Outreach: 6 attempts Final Disposition: Resources given (12-30-21 informed needs to contact [employer] dept, [employer] company to find covered network provider, chong [...] tx his anxiety -offered following resource: [facility] [address] [place] [address] [facility] requested inform [facility] if she is able to get financial clearance or schedules an appt elsewhere. No further contact is indicated at this time MANSOOR De La Vega December 30, 2021 documented in this encounter [facility] 12-28-2021 Miscellaneous Notes Behavioral Health Social Work Progress Note Patient identified for [facility] from: PCP (Chu Zhao) Reason for referral: [facility] Assessment (failed mental health tx, SANJAY,panic) [facility] encounter type: Telephone Encounter Attempts to Outreach: 4 attempts Final Disposition: Other (12-28-21 Informed , unable to sched appt due to insurance out of network) Patient Discharged?: Yes Patient reported that caregiver was able to meet their needs today?: N/A [facility] received a msg from second officer Pt is unable to be scheduled -insurance is out of network [facility] attempted to contact Pt -left vm on his cell number -contacted and informed her the appt was cancelled due to insurance being out of network - offered to pay out of pocket -informed her she would need to talk with financial dept - stated she will contact the insurance company and get things worked out -[facility] recommended inquiring about covered behavioral health services when talking with the insurance. agreed to inform [facility] of the outcome of her conversation with the insurance No further contact is indicated -will wait to hear from MANSOOR De La Vega December 28, 2021 documented in this encounter [facility] 12-27-2021 Miscellaneous Notes Behavioral Health Social Work Progress Note Patient identified for [facility] from: PCP (Chu Zhao) Reason for referral: [facility] Assessment (failed mental health tx, SANJAY,panic) [facility] encounter type: Telephone Encounter Attempts to Outreach: 2 attempts Referral made: Psychology - Internal Psychology-Internal referral type: (scheduled assessment for 01-07-22 at 9am virtual) SW received a msg from Chu Zhao - would like for Pt to see [facility] psychiatry provider [facility] attempted to contact Pt -no answer [facility] assessment for 01-07-22 at 9am virtual -sent LUVHAN with appt info, consent for tx, PHQ9 and GAD7 MANSOOR De La Vega December 27, 2021 documented in this encounter [facility] 12-27-2021 Miscellaneous Notes Spoke with and [...] Alia Nuñez RN documented in this encounter [facility] 12-22-2021 Miscellaneous Notes BEHAVIORAL HEALTH SOCIAL WORK CONSULT NOTE Service Date: December 22, 2021 Patient was identified by name and Patient: Aldair Yepez [address] [facility] [address] (home) [phone] (cell) PCP: Clarence Rodriguez MD [address] [facility] [id number] Patient identified for [facility] from: PCP (Chu Zhao) Reason for referral: [facility] Assessment (failed mental health tx, SANJAY,panic) [facility] encounter type: Telephone Encounter Assessment: SW received a consult from Chu Zhao, for assessment failed mental health tx, SANJAY, panic SW reviewed Pt's chart/insurance [facility] contacted Pt -he was unaware [facility] would be calling -stated has been communicating with [facility] office -reported he is receiving services from [facility], on line service -has seen a counselor -has an appt with a psychiatrist tomorrow at 8am Prefers to cont with current providers and not switch services at this time -Pt thanked [facility] for calling [facility] notified Chu Zhao, has services and will [...] is receiving counseling and psychiatry service from [facility]) Patient Discharged?: Yes Patient reported that caregiver was able to meet their needs today?: N/A Internal Referrals : No Reason for External Referrals : Other : Pt is established with behavioral health services, counseling and psychiatry at [facility], on line service Intervention: Supportive Listening Resources Provided: Other: none at this time Pt is established with behavioral health services Time Spent: 15 minutes MANSOOR De La Vega documented in this encounter [facility] 12-21-2021 Miscellaneous Notes noted Patient's calls and states that patient is feeling better. states that patient is just going to stop taking medication. Patient is not going to ER. Chely Rainey RN documented in this encounter [facility] 12-21-2021 Miscellaneous Notes Spoke with pt's . She advises that he is not back to normal and will take pt to [facility] ER as instructed by Caryl. Vika [...] at work now. documented in this encounter [facility] 12-15-2021 History of Presen t illness [...] Relation Age of Onset Heart Maternal Grandfather [place] Hypertension Mother None Father Heart Maternal Uncle [...] If not improving, can set up with first leveler. Caryl Green PA-C documented in this encounter [facility] 12-10-2021 Miscellaneous Notes Patient spouse was [...] together? Please advise documented in this encounter [facility] 12-03-2021 Miscellaneous Notes Spoke with pt's and she states she will schedule appointment [facility]. Vika [place] LPN Patient due [...] advise. Clementina Christina documented in this encounter [facility] 12-03-2021 Miscellaneous Notes Already addressed. Last refill 05/12/21 Qty: 30 with 5 refills Last ov 08/12/21 No appt scheduled Vika [place] LPN documented in this encounter [facility] 08-16-2019 History of Past i llness Narrative Problem Noted Date Resolved Date Globus sensation 08/16/2019 09/16/2019 documented as of this encounter (statuses as of 12/03/2021) [facility] History of Past illness Narrative* Problem Noted Date Resolved Date Globus sensation 08/16/2019 09/16/2019 documented as of this encounter (statuses as of 12/03/2021) [place] [id number] History of Past illness Narrative* Problem Noted Date Resolved Date Globus sensation 08/16/2019 09/16/2019 documented as of this encounter (statuses as of 12/10/2021) [place] [id number] History of Past illness Narrative* Problem Noted Date Resolved Date Globus sensation 08/16/2019 09/16/2019 documented as of this encounter (statuses as of 12/15/2021) [place] [id number] History of Past illness Narrative* Problem Noted Date Resolved Date Globus sensation 08/16/2019 09/16/2019 documented as of this encounter (statuses as of 12/21/2021) [place] [id number] History of Past illness Narrative* Problem Noted Date Resolved Date Globus sensation 08/16/2019 09/16/2019 documented as of this encounter (statuses as of 12/21/2021) [place] [id number] History of Past illness Narrative* Problem Noted Date Resolved Date Globus sensation 08/16/2019 09/16/2019 documented as of this encounter (statuses as of 12/22/2021) [place] [id number] History of Past illness Narrative* Problem Noted Date Resolved Date Globus sensation 08/16/2019 09/16/2019 documented as of this encounter (statuses as of 12/27/2021) [place] [id number] History of Past illness Narrative* Problem Noted Date Resolved Date Globus sensation 08/16/2019 09/16/2019 documented as of this encounter (statuses as of 12/28/2021) [place] [id number] History of Past illness Narrative* Problem Noted Date Resolved Date Globus sensation 08/16/2019 09/16/2019 documented as of this encounter (statuses as of 12/30/2021) [place] [id number] History of Past illness Narrative* Problem Noted Date Resolved Date Globus sensation 08/16/2019 09/16/2019 documented as of this encounter (statuses as of 01/10/2022) [place] [id number] History of Past illness Narrative* Problem Noted Date Resolved Date Globus sensation 08/16/2019 09/16/2019 documented as of this encounter (statuses as of 01/21/2022) [place] [id number] History of Past illness Narrative* Problem Noted Date Resolved Date Globus sensation 08/16/2019 09/16/2019 documented as of this encounter (statuses as of 02/21/2022) [place] [id number] History of Past illness Narrative* Problem Noted Date Resolved Date Globus sensation 08/16/2019 09/16/2019 documented as of this encounter (statuses as of 03/15/2022) [place] [id number] History of Past illness Narrative* Problem Noted Date Resolved Date Globus sensation 08/16/2019 09/16/2019 documented as of this encounter (statuses as of 03/22/2022) [place] [id number] History of Past illness Narrative* Problem Noted Date Resolved Date Globus sensation 08/16/2019 09/16/2019 documented as of this encounter (statuses as of 03/23/2022) [place] [id number] History of Past illness Narrative* Problem Noted Date Resolved Date Globus sensation 08/16/2019 09/16/2019 documented as of this encounter (statuses as of 03/23/2022) [place] [id number] History of Past illness Narrative* Problem Noted Date Resolved Date Globus sensation 08/16/2019 09/16/2019 documented as of this encounter (statuses as of 03/29/2022) [place] [id number] History of Past illness Narrative* Problem Noted Date Resolved Date Globus sensation 08/16/2019 09/16/2019 documented as of this encounter (statuses as of 04/07/2022) [place] [id number] History of Past illness Narrative* Problem Noted Date Resolved Date Globus sensation 08/16/2019 09/16/2019 documented as of this encounter (statuses as of 04/08/2022) [place] [id number] History of Past illness Narrative* Problem Noted Date Resolved Date Globus sensation 08/16/2019 09/16/2019 documented as of this encounter (statuses as of 04/29/2022) [place] [id number] History of Past illness Narrative* Problem Noted Date Resolved Date Globus sensation 08/16/2019 09/16/2019 documented as of this encounter (statuses as of 05/10/2022) [place] [id number] History of Past illness Narrative* Problem Noted Date Resolved Date Globus sensation 08/16/2019 09/16/2019 documented as of this encounter (statuses as of 05/10/2022) [place] [id number] History of Past illness Narrative* Problem Noted Date Resolved Date Globus sensation 08/16/2019 09/16/2019 documented as of this encounter (statuses as of 05/16/2022) [place] [id number] History of Past illness Narrative* Problem Noted Date Resolved Date Globus sensation 08/16/2019 09/16/2019 documented as of this encounter (statuses as of 06/24/2022) [place] [id number] History of Past illness Narrative* Problem Noted Date Resolved Date Globus sensation 08/16/2019 09/16/2019 documented as of this encounter (statuses as of 07/17/2022) [place] [id number] History of Past illness Narrative* Problem Noted Date Resolved Date Globus sensation 08/16/2019 09/16/2019 documented as of this encounter (statuses as of 08/05/2022) [place] [id number] History of Past illness Narrative* Problem Noted Date Resolved Date Globus sensation 08/16/2019 09/16/2019 documented as of this encounter (statuses as of 09/14/2022) [place] [id number] History of Past illness Narrative* Problem Noted Date Resolved Date Globus sensation 08/16/2019 09/16/2019 documented as of this encounter (statuses as of 10/19/2022) [place] [id number] History of Past illness Narrative* Problem Noted Date Resolved Date Globus sensation 08/16/2019 09/16/2019 documented as of this encounter (statuses as of 11/03/2022) [place] [id number] History of Past illness Narrative* Problem Noted Date Resolved Date Globus sensation 08/16/2019 09/16/2019 documented as of this encounter (statuses as of 12/21/2022) [place] [id number] History of Past illness Narrative* Problem Noted Date Resolved Date Globus sensation 08/16/2019 09/16/2019 documented as of this encounter (statuses as of 01/06/2023) [place] [id number] History of Past illness Narrative* Problem Noted Date Diagnosed Date Resolved Date Globus sensation 08/16/2019 09/16/2019 documented as of this encounter (statuses as of 03/03/2023) [place] [id number] History of Past illness Narrative* Problem Noted Date Diagnosed Date Resolved Date Globus sensation 08/16/2019 09/16/2019 documented as of this encounter (statuses as of 03/04/2023) [place] [id number] History of Past illness Narrative* Problem Noted Date Diagnosed Date Resolved Date Globus sensation 08/16/2019 09/16/2019 documented as of this encounter (statuses as of 03/04/2023) [place] [id number] History of Past illness Narrative* Problem Noted Date Diagnosed Date Resolved Date Globus sensation 08/16/2019 09/16/2019 documented as of this encounter (statuses as of 04/12/2023) [place] [id number] History of Past illness Narrative* Problem Noted Date Diagnosed Date Resolved Date Globus sensation 08/16/2019 09/16/2019 documented as of this encounter (statuses as of 04/21/2023) [place] [id number] History of Past illness Narrative* Problem Noted Date Diagnosed Date Resolved Date Globus sensation 08/16/2019 09/16/2019 documented as of this encounter (statuses as of 05/05/2023) [place] [id number] History of Past illness Narrative* Problem Noted Date Diagnosed Date Resolved Date Globus sensation 08/16/2019 09/16/2019 documented as of this encounter (statuses as of 05/28/2023) [place] [id number] History of Past illness Narrative* Problem Noted Date Diagnosed Date Resolved Date Globus sensation 08/16/2019 09/16/2019 documented as of this encounter (statuses as of 06/01/2023) [facility] [place] [facility] Diagnosis SANJAY (generalized anxiety disorder)- Primary Generalized anxiety disorder Panic attack Panic disorder without agoraphobia Seasonal allergic rhinitis, unspecified trigger [facility] Severe anxiety- Primary Mild depression Depressive disorder, not elsewhere classified [facility] noteNo assessment information availableWGerman [facility] Work Phone: [facility] [place] [facility]* Diagnosis Panic disorder without agoraphobia- Primary [facility] [place] [facility]* Diagnosis Injury of head, initial encounter- Primary Accident caused by farm tractor, initial encounter [facility] [place] [facility] Diagnosis Flank pain- Primary Abdominal pain, unspecified site Acute cystitis with hematuria Acute cystitis Acute pain of left shoulder [facility] [place] [facility]* Diagnosis Flank pain Abdominal pain, unspecified site Acute pain of left shoulder documented [facility] [place] [facility]* Diagnosis Acute pain of left shoulder- Primary documented [facility] [place] [facility]* Diagnosis Acute pain of left shoulder documented [facility] [place] [facility]* Diagnosis Acute pain of left shoulder- Primary [facility] [place] [facility]* Diagnosis Acute pain of left shoulder- Primary Traumatic complete tear of left rotator cuff, initial encounter documented [facility] [place] [facility]* Diagnosis Panic disorder without agoraphobia- Primary documented in this encounter [facility] note* Diagnosis Panic disorder without agoraphobia- Primary documented [facility] [place] [facility]* Diagnosis Sorethroat- Primary Acute pharyngitis documented in this encounter [facility] [place] [facility]* Diagnosis Fatty liver- Primary Other chronic nonalcoholic liver disease Encounter for lipid screening for cardiovascular disease Screening for lipoid disorders documented [facility] [place] [facility]* Diagnosis Well adult exam- Primary Routine [...] of unspecified site documented [facility] this encounter [facility] [place] [facility]* Diagnosis Rib pain on left side- Primary Chest pain, unspecified documented [facility] [place] [facility]* Diagnosis Atypical chest pain- Primary Other chest pain GERD without esophagitis Esophageal reflux Family history of early CAD Family history of ischemic heart disease documented [facility] [place] [facility]* Diagnosis Elevated LFTs Other abnormal blood chemistry documented [facility] [place] [facility]* Diagnosis GERD without esophagitis- Primary Esophageal reflux Encounter for immunization Need for other specified prophylactic vaccination against single bacterial disease documented in this encounter [facility] note* Diagnosis Exposure to blood- Primary Personal history of contact with and (suspected) exposure to potentially hazardous body fluids documented in this encounter [facility] note* Diagnosis Rib pain on left side Chest pain, unspecified documented in this encounter [facility] note* Diagnosis Sore throat- Primary Acute pharyngitis Acute otitis media, right Unspecified otitis media documented in this encounter [facility] note* Diagnosis Sore throat- Primary Acute pharyngitis Strep pharyngitis Streptococcal sore throat documented in this encounter [facility] note* Diagnosis Tonsillitis- Primary Acute tonsillitis Pharyngitis, unspecified etiology documented in this encounter [facility] Discharge instructionsAdditional Instructions Please stay away from raccoons. Follow-up with your primary care physician. You received your rabies immunoglobulin and vaccine here in the emergency department. You need to have recurrent rabies vaccines on day 3, day 7, day 14 from when you were bit.[facility] Work Phone: [facility] for referral (narrative)* Diagnostic Procedure Only (Urgent) - Pending Review Specialty Diagnoses / Procedures Referred By Contac t Referred To Contact XR IMAGING Diagnoses Rib pain on left side Procedures XR RIBS/CHEST 3V AP RIB/OBLS/CXR LEFT RADEX RIBS UNI W/POSTEROANT CH MINIMUM 3 VIEWS Uma Jimenez APRN.CNP [address] [place] [address] Xr Imaging Referral ID Status Reason Start Date Expiration Date Visits Requested Visits Authorized [id number] Pending Review Auto-Generat ed Referral 03/04/2023 04/02/20[address] [facility] for referral (narrative)* Outpatient Procedure (Routine) - Denied Specialty Diagnoses / Procedures Referred By Contac t Referred To Contact [facility] Diagnoses Atypical chest pain Procedures ECG COMPLETE ECG ROUTINE ECG W/LEAST 12 LDS W/I&R Clarence Rodriguez MD [address] [place] [address] [facility] [place] [address] [place] [address] Referral ID Status Reason Start Date Expiration Date V isits Requested Visits Authorized [id number] Denied Auto-Generate d Referral 04/20/2023 04/19/2024 [address] [facility] for referral (narrative)* Diagnostic Procedure Only (Routine) - Closed Specialty Diagnoses / Procedures Referred By Contac t Referred To Contact US IMAGING Diagnoses Elevated LFTs Procedures US ABD RIGHT UPPER QUADRANT US ABDOMINAL REAL TIME W/IMAGE LIMITED Caryl Green PA-C [address] [place] [address] [place] [address] Referral ID Status Reason Start Date Expiration Date V isits Requested Visits Authorized [id number] Closed Patient Cleared - True Self-Pay required payment collected 12/13/2022 01/12/2024 [address] [facility] for referral (narrative)* Diagnostic Procedure Only (Urgent) - Denied Specialty Diagnoses / Procedures Referred By Contac t Referred To Contact XR IMAGING Diagnoses Rib pain on left side Procedures XR RIBS/CHEST 3V AP RIB/OBLS/CXR LEFT RADEX RIBS UNI W/POSTEROANT CH MINIMUM 3 VIEWS Uma Jimenez APRN.CNP [address] [place] [address] Xr Imaging [facility] Referral ID Status Reason Start Date Expiration Date Visits Re quested Visits Authorized [id number] Denied 03/04/2023 04/02/2024 [address] [facility] for referral (narrative)No reason for referral information availableWGerman [facility] Work Phone: Reason for visit Narrative* Diagnostic Procedure Only (Routine) - Denied Specialty Diagnoses / Procedures Referred By Contac t Referred To Contact XR IMAGING Diagnoses Acute pain of left shoulder Procedures XR SHOULDER GENERAL 3V OR MORE AP/TRUE AP/OTHER LEFT RADEX SHOULDER COMPLETE MINIMUM 2 VIEWS Anuel Mckenna MD [address] [place] [address] Xr Imaging Referral ID Status Reason Start Date Expiration Date V isits Requested Visits Authorized [id number] Denied Auto-Generate d Referral OON/Self Pay Override 04/28/2022 05/28/2023 1 0 [facility] Procedure Only (Urgent) - Denied Specialty Diagnoses / Procedures Referred By Contac t Referred To Contact XR IMAGING Diagnoses Rib pain on left side Procedures XR RIBS/CHEST 3V AP RIB/OBLS/CXR LEFT RADEX RIBS UNI W/POSTEROANT CH MINIMUM 3 VIEWS Uma Jimenez APRN.RN ADMIT [address] [place] [address] [place] [address] Referral ID Status Reason Start Date Expiration Date Visits Re quested Visits Authorized [id number] Denied 03/04/2023 04/02/2024 1 0 [facility] Advance Directives No Advanced Directives Records FoundDocuments on File Type Date Recorded Patient Order Processing Specialist Expl anation Advance Directive(s) 09/17/2019 8:33 AM Advance Directive Response Recorded Date/ Time Living Will No February 13, 2022 8:02pm Power of Oil Well Services Supervisor No February 13 8:02pm Advance Directive Response Recorded Date/ Time Living Will No March 15 11:41am Power of Oil Well Services Supervisor No March 15 11:41am Advance Directive Response Recorded Date/ Time Living Will No November 13, 2023 6:49pm Power of Oil Well Services Supervisor No November 12 6:49pm Advance Directive Response Recorded Date/ Time Do you have a Healthcare Power of Oil Well Services Supervisor? 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 FLANK PAIN Chief Complaint Other chest pain [...] ABD & PELVIS W/O CONTRAST Nae Domínguez, BLAKE.RN ADMIT [address] [place] [address] Ct Imaging Referral ID Status Reason Start Date Expiration Date V isits Requested Visits Authorized [id number] Closed Auto-Generate d Referral 03/22/2022 04/21/2023 1 1 Specialty Diagnoses / Procedures Referred By Contac t Referred To Contact [facility] Diagnoses Acute pain of left shoulder Procedures CONSULT TO PHYSICAL THERAPY PHYSICAL THERAPY EVALUATION [facility] 45 MINS Nae Domínguez APRN.RN ADMIT [address] [place] [address] [facility] [place] [address] [place] [address] Referral ID Status Reason Start Date Expiration Date Visits Requested Visits Authorized [id number] Pending Review Auto-Generat ed Referral 03/29/2022 03/29/2023 1 1 Specialty Diagnoses / Procedures Referred By Contac t Referred To Contact Orthopedics Diagnoses Acute pain of left shoulder Procedures CONSULT TO ORTHOPAEDICS OFFICE/OUTPATIENT [facility] 60-74 MINUTES Nae Domínguez, SPECIALTY MOLDER.RN ADMIT [address] [place] [address] [place] [address] Referral ID Status Reason Start Date Expiration Date V isits Requested Visits Authorized [id number] Denied PCP Requested Referral 04/08/2022 04/08/2023 1 0 Specialty Diagnoses / Procedures Referred By Contac t Referred To Contact MR IMAGING Diagnoses Acute pain of left shoulder Traumatic complete tear of left rotator cuff, initial encounter Procedures MRI SHOULDER WO IVCON LT MRI ANY JT UPPER EXTREMITY W/O CONTRAST Anuel Reno MD [address] [place] [address] Mr Imaging Referral ID Status Reason Start Date Expiration Date Visits Requested Visits Authorized [id number] Closed Auto-Generated Referral Patient cleared - OON Required Payment Collected OON Notification Letter 04/28/2022 05/28/2023 1 1 Specialty Diagnoses / Procedures Referred By Contac t Referred To Contact XR IMAGING Diagnoses Acute pain of left shoulder Procedures XR SHOULDER GENERAL 3V OR MORE AP/TRUE AP/OTHER LEFT RADEX SHOULDER COMPLETE MINIMUM 2 VIEWS Anuel Mckenna MD [address] [place] [address] Xr Imaging Referral ID Status Reason Start Date Expiration Date V isits Requested Visits Authorized [id number] Denied Auto-Generate d Referral OON/Self Pay Override [...] or prosecute any alcohol or drug abuse patient.[facility] the event this information is protected by the Federal Confidentiality of Alcohol and Drug Abuse Patient Records regulations: The Federal rules restrict any use of the information to criminally investigate or prosecute any alcohol or drug abuse patient.[facility] HospitalIn the event this information is protected by the Federal Confidentiality of Alcohol and Drug Abuse Patient Records regulations: The Federal rules restrict any use of the information to criminally investigate or prosecute any alcohol or drug abuse patient.[facility] HospitalIn the event this information is protected by the Federal Confidentiality of Alcohol and Drug Abuse Patient Records regulations: The Federal rules restrict any use of the information to criminally investigate or prosecute any alcohol or drug abuse patient.[facility] HospitalIn the event this information is protected by the Federal Confidentiality of Alcohol and Drug Abuse Patient Records regulations: The Federal rules restrict any use of the information to criminally investigate or prosecute any alcohol or drug abuse patient.[facility] HospitalIn the event this information is protected by the Federal Confidentiality of Alcohol and Drug Abuse Patient Records regulations: The Federal rules restrict any use of the information to criminally investigate or prosecute any alcohol or drug abuse patient.[facility] HospitalIn the event this information is protected by the Federal Confidentiality of Alcohol and Drug Abuse Patient Records regulations: The Federal rules restrict any use of the information to criminally investigate or prosecute any alcohol or drug abuse patient.[facility] HospitalIn the event this information is protected by the Federal Confidentiality of Alcohol and Drug Abuse Patient Records regulations: The Federal rules restrict any use of the information to criminally investigate or prosecute any alcohol or drug abuse patient.[facility] HospitalIn the event this information is protected by the Federal Confidentiality of Alcohol and Drug Abuse Patient Records regulations: The Federal rules restrict any use of the information to criminally investigate or prosecute any alcohol or drug abuse patient.[facility] HospitalIn the event this information is protected by the Federal Confidentiality of Alcohol and Drug Abuse Patient Records regulations: The Federal rules restrict any use of the information to criminally investigate or prosecute any alcohol or drug abuse patient.[facility] HospitalIn the event this information is protected by the Federal Confidentiality of Alcohol and Drug Abuse Patient Records regulations: The Federal rules restrict any use of the information to criminally investigate or prosecute any alcohol or drug abuse patient.[facility] HospitalIn the event this information is protected by the Federal Confidentiality of Alcohol and Drug Abuse Patient Records regulations: The Federal rules restrict any use of the information to criminally investigate or prosecute any alcohol or drug abuse patient.[facility] HospitalIn the event this information is protected by the Federal Confidentiality of Alcohol and Drug Abuse Patient Records regulations: The Federal rules restrict any use of the information to criminally investigate or prosecute any alcohol or drug abuse patient.[facility] HospitalIn the event this information is protected by the Federal Confidentiality of Alcohol and Drug Abuse Patient Records regulations: The Federal rules restrict any use of the information to criminally investigate or prosecute any alcohol or drug abuse patient.[facility] HospitalIn the event this information is protected by the Federal Confidentiality of Alcohol and Drug Abuse Patient Records regulations: The Federal rules restrict any use of the information to criminally investigate or prosecute any alcohol or drug abuse patient.[facility] HospitalIn the event this information is protected by the Federal Confidentiality of Alcohol and Drug Abuse Patient Records regulations: The Federal rules restrict any use of the information to criminally investigate or prosecute any alcohol or drug abuse patient.[facility] HospitalIn the event this information is protected by the Federal Confidentiality of Alcohol and Drug Abuse Patient Records regulations: The Federal rules restrict any use of the information to criminally investigate or prosecute any alcohol or drug abuse patient.[facility] HospitalIn the event this information is protected by the Federal Confidentiality of Alcohol and Drug Abuse Patient Records regulations: The Federal rules restrict any use of the information to criminally investigate or prosecute any alcohol or drug abuse patient.[facility] HospitalIn the event this information is protected by the Federal Confidentiality of Alcohol and Drug Abuse Patient Records regulations: The Federal rules restrict any use of the information to criminally investigate or prosecute any alcohol or drug abuse patient.[facility] HospitalIn the event this information is protected by the Federal Confidentiality of Alcohol and Drug Abuse Patient Records regulations: The Federal rules restrict any use of the information to criminally investigate or prosecute any alcohol or drug abuse patient.[facility] HospitalIn the event this information is protected by the Federal Confidentiality of Alcohol and Drug Abuse Patient Records regulations: The Federal rules restrict any use of the information to criminally investigate or prosecute any alcohol or drug abuse patient.[facility] HospitalIn the event this information is protected by the Federal Confidentiality of Alcohol and Drug Abuse Patient Records regulations: The Federal rules restrict any use of the information to criminally investigate or prosecute any alcohol or drug abuse patient.[facility] HospitalIn the event this information is protected by the Federal Confidentiality of Alcohol and Drug Abuse Patient Records regulations: The Federal rules restrict any use of the information to criminally investigate or prosecute any alcohol or drug abuse patient.[facility] HospitalIn the event this information is protected by the Federal Confidentiality of Alcohol and Drug Abuse Patient Records regulations: The Federal rules restrict any use of the information to criminally investigate or prosecute any alcohol or drug abuse patient.[facility] HospitalIn the event this information is protected by the Federal Confidentiality of Alcohol and Drug Abuse Patient Records regulations: The Federal rules restrict any use of the information to criminally investigate or prosecute any alcohol or drug abuse patient.[facility] HospitalIn the event this information is protected by the Federal Confidentiality of Alcohol and Drug Abuse Patient Records regulations: The Federal rules restrict any use of the information to criminally investigate or prosecute any alcohol or drug abuse patient.[facility] HospitalIn the event this information is protected by the Federal Confidentiality of Alcohol and Drug Abuse Patient Records regulations: The Federal rules restrict any use of the information to criminally investigate or prosecute any alcohol or drug abuse patient.[facility] HospitalIn the event this information is protected by the Federal Confidentiality of Alcohol and Drug Abuse Patient Records regulations: The Federal rules restrict any use of the information to criminally investigate or prosecute any alcohol or drug abuse patient.[facility] HospitalIn the event this information is protected by the Federal Confidentiality of Alcohol and Drug Abuse Patient Records regulations: The Federal rules restrict any use of the information to criminally investigate or prosecute any alcohol or drug abuse patient.[facility] HospitalIn the event this information is protected by the Federal Confidentiality of Alcohol and Drug Abuse Patient Records regulations: The Federal rules restrict any use of the information to criminally investigate or prosecute any alcohol or drug abuse patient.[facility] HospitalIn the event this information is protected by the Federal Confidentiality of Alcohol and Drug Abuse Patient Records regulations: The Federal rules restrict any use of the information to criminally investigate or prosecute any alcohol or drug abuse patient.[facility] HospitalIn the event this information is protected by the Federal Confidentiality of Alcohol and Drug Abuse Patient Records regulations: The Federal rules restrict any use of the information to criminally investigate or prosecute any alcohol or drug abuse patient.[facility] HospitalIn the event this information is protected by the Federal Confidentiality of Alcohol and Drug Abuse Patient Records regulations: The Federal rules restrict any use of the information to criminally investigate or prosecute any alcohol or drug abuse patient.[facility] HospitalIn the event this information is protected by the Federal Confidentiality of Alcohol and Drug Abuse Patient Records regulations: The Federal rules restrict any use of the information to criminally investigate or prosecute any alcohol or drug abuse patient.[facility] HospitalIn the event this information is protected by the Federal Confidentiality of Alcohol and Drug Abuse Patient Records regulations: The Federal rules restrict any use of the information to criminally investigate or prosecute any alcohol or drug abuse patient.[facility] HospitalIn the event this information is protected by the Federal Confidentiality of Alcohol and Drug Abuse Patient Records regulations: The Federal rules restrict any use of the information to criminally investigate or prosecute any alcohol or drug abuse patient.[facility] HospitalIn the event this information is protected by the Federal Confidentiality of Alcohol and Drug Abuse Patient Records regulations: The Federal rules restrict any use of the information to criminally investigate or prosecute any alcohol or drug abuse patient.[facility] HospitalIn the event this information is protected by the Federal Confidentiality of Alcohol and Drug Abuse Patient Records regulations: The Federal rules restrict any use of the information to criminally investigate or prosecute any alcohol or drug abuse patient.[facility] HospitalIn the event this information is protected by the Federal Confidentiality of Alcohol and Drug Abuse Patient Records regulations: The Federal rules restrict any use of the information to criminally investigate or prosecute any alcohol or drug abuse patient.[facility] HospitalIn the event this information is protected by the Federal Confidentiality of Alcohol and Drug Abuse Patient Records regulations: The Federal rules restrict any use of the information to criminally investigate or prosecute any alcohol or drug abuse patient.[facility] HospitalIn the event this information is protected by the Federal Confidentiality of Alcohol and Drug Abuse Patient Records regulations: The Federal rules restrict any use of the information to criminally investigate or prosecute any alcohol or drug abuse patient.[facility] HospitalIn the event this information is protected by the Federal Confidentiality of Alcohol and Drug Abuse Patient Records regulations: The Federal rules restrict any use of the information to criminally investigate or prosecute any alcohol or drug abuse patient.[facility] HospitalIn the event this information is protected by the Federal Confidentiality of Alcohol and Drug Abuse Patient Records regulations: The Federal rules restrict any use of the information to criminally investigate or prosecute any alcohol or drug abuse patient.[facility] HospitalIn the event this information is protected by the Federal Confidentiality of Alcohol and Drug Abuse Patient Records regulations: The Federal rules restrict any use of the information to criminally investigate or prosecute any alcohol or drug abuse patient.[facility] HospitalIn the event this information is protected by the Federal Confidentiality of Alcohol and Drug Abuse Patient Records regulations: The Federal rules restrict any use of the information to criminally investigate or prosecute any alcohol or drug abuse patient.[facility] HospitalIn the event this information is protected by the Federal Confidentiality of Alcohol and Drug Abuse Patient Records regulations: The Federal rules restrict any use of the information to criminally investigate or prosecute any alcohol or drug abuse patient.[facility] HospitalIn the event this information is protected by the Federal Confidentiality of Alcohol and Drug Abuse Patient Records regulations: The Federal rules restrict any use of the information to criminally investigate or prosecute any alcohol or drug abuse patient.[facility] Reason for Visit (unrecogniz ed section and content) Reason Comments Follow Up Specialty Diagnoses / Procedures Referred By Mario robbins Referred To Contact FAMILY MEDICINE Diagnoses gerd/chest pain follow up Procedures OFFICE/OUTPATIENT ESTABLISHED MOD MDM 30-39 MIN Claernce Piedra MD [address] [place] [address] [facility] [address] [place] [address] Referral ID Status Reason Start Date Expiration Date Visits Requested Visits Authorized [id number] Closed Financial Clearance Required - OON Payor OON Notification Letter Patient cleared - OON Required Payment Collected 04/20/2023 07/19/2023 1 1 Specialty Diagnoses / Procedures Referred By Mario robbins Referred To Contact ADULT PSYCHIATRY Diagnoses Virtual Procedures Virtual Tayler Gonsalez, SPECIALTY MOLDER.RN ADMIT [address] [place] [address] [facility] [address] [place] [address] Referral ID Status Reason Start Date Expiration Date Visits Requested Visits Authorized [id number] Closed Financial Clearance Required - OON Payor [...] OFFICE VISIT Self Caryl Green PA-C [address] [place] [address] Referral ID Status Reason Start Date Expiration Date Visits Requested Visits Authorized [id number] Closed Financial Clearance Required - OON Payor Clearance Not Met - Admin/Turf Sales Person/D irector Advise to Postpone/Resched ule or Not Proceed OON Notification Letter 12/15/2021 07/23/2022 1 1 Reason Comments Patient Update Medication Problem Reason Comments Patient Update Reason Comments Consult Initial [facility] Pt Outr each Reason Comments Consult [facility] Pt Outreach F/U Reason Comments Patient Question Reason Comments Consult [facility] Calling Reason Comments Consult [facility] Assessment Virt ual Specialty Diagnoses / Procedures Referred By Mario robbins Referred To Contact ADULT PSYCHOLOGY Diagnoses anxiety/ eval Procedures REFERRAL TO CC FINANCIAL COUNSELOR PSYCHIATRIC DIAGNOSTIC EVALUATION 1st eval Clarence Rodriguez MD [address] [place] [address] Psyl Adult [place] [id number] [address] Referral ID Status Reason Start Date Expiration Date Visits Requested Visits Authorized [id number] Closed Financial Clearance Required - OON Payor OON Notification Letter Patient cleared - OON Required Payment Collected 12/27/2021 03/27/2022 1 1 Reason Comments New Patient Evaluation Specialty Diagnoses / Procedures Referred By Contac t Referred To Contact ADULT PSYCHOLOGY Diagnoses medication Procedures REFERRAL TO [facility] FINANCIAL COUNSELOR EST patient Grey Barkley LISW [address] [place] [address] Psyl Adult [facility] [address] [address] Referral ID Status Reason Start Date Expiration Date Visits Requested Visits Authorized [id number] Closed Financial Clearance Required - OON Payor OON Notification Letter Patient Cleared Patient chose to pay or Auth obtained after CCN denied 01/28/2022 04/28/2022 1 1 Reason Comments left shoulder pain Flipped mower over 1 hour ago Reason Comments ER F/U [facility] ER follow up 02/22 3 dx: mower rolled over on him Specialty Diagnoses / Procedures Referred By Mario t Referred To Contact FAMILY MEDICINE Diagnoses ER f/u Procedures consult and treat [facility], [facility] [address] [place] [id number] Referral ID Status Reason Start Date Expiration Date V isits Requested Visits Authorized [id number] Denied OON/Self Pay Override 03/22/2022 06/20/2022 1 0 Reason Comments Results Reason Comments PT Eval Specialty Diagnoses / Procedures Referred By Gillianac t Referred To Contact [facility] Diagnoses Acute pain of left shoulder Procedures CONSULT TO PHYSICAL THERAPY PHYSICAL THERAPY EVALUATION [facility] 45 MINS Nae Domínguez APRN.RN ADMIT [address] [place] [address] [facility] [address] [place] [address] Referral ID Status Reason Start Date Expiration Date V isits Requested Visits Authorized [id number] Closed Financial Clearance Required - OON Payor [...] MATRL Anuel Mckenna MD [address] [place] [address] Mr Imaging Referral ID Status Reason Start Date Expiration Date Visits Requested Visits Authorized [id number] Closed Auto-Generated Referral Patient cleared - OON Required Payment Collected OON Notification Letter 04/28/2022 05/28/2023 1 1 Reason Comments New Pain Specialty Diagnoses / Procedures Referred By Contac t Referred To Contact ORTHOPAEDIC SURGERY Diagnoses Torn Rotator Cuff Procedures Office Visit Anuel Mckenna MD [address] [facility] [place] [address] [facility] [address] [place] [address] Referral ID Status Reason Start Date Expiration Date Visits Requested Visits Authorized [id number] Closed Financial Clearance Required - OON Payor OON Notification Letter Patient cleared - OON Required Payment Collected 04/11/2022 07/10/2022 1 1 Reason Onset Date Comments Refill Request 06/24/2022 Specialty Diagnoses / Procedures Referred By Contac t Referred To Contact Psychiatry / ADULT PSYCHIATRY Diagnoses NEW PATIENT Procedures VIDEO PSYC/PSYL NEW Filippo, Grey, MANSOOR [address] [place] [address] Tayler Gonsalez, SPECIALTY MOLDER.RN ADMIT [address] [place] [address] Referral ID Status Reason Start Date Expiration Date Visits Requested Visits Authorized [id number] Closed Financial Clearance Required - OON Payor [...] TEST, TREAT, CONSULT Caryl Green PA-C [address] [place] [address] [facility] [address] [place] [address] Referral ID Status Reason Start Date Expiration Date V isits Requested Visits Authorized [id number] Closed Financial Clearance Required - OON Payor Patient cleared - OON Required Payment Collected 02/15/2023 05/16/2023 1 1 Reason Comments Pain (Shoulder Pain) left shoulder pain into chest x 2 days, comes and goes Reason Comments Pain Specialty Diagnoses / Procedures Referred By Contac t Referred To Contact [facility] DEPARTMENT Diagnoses GERD ISSUES Procedures REFERRAL TO [facility] FINANCIAL COUNSELOR [facility] Clarence Rodriguez MD [address] [place] [address] [place] [address] Referral ID Status Reason Start Date Expiration Date Visits Requested Visits Authorized [id number] Closed Financial Clearance Required - OON Payor OON Notification Letter Patient cleared - OON Required Payment Collected 04/11/2023 07/10/2023 1 1 Reason Comments Radiology US Specialty Diagnoses / Procedures Referred By Contac t Referred To Contact US IMAGING Diagnoses Elevated LFTs Procedures US ABD RIGHT UPPER QUADRANT US ABDOMINAL REAL TIME W/IMAGE LIMITED Caryl Green PA-C [address] [place] [address] [place] [address] Referral ID Status Reason Start Date Expiration Date V isits Requested Visits Authorized [id number] Closed Patient Cleared - True Self-Pay required [...] Care Teams (unrecognized sec tion and content) Band Director Relationship Specialty Start Date End Date Clarence Rodriguez MD [address] [place], [place] [id number] PCP - General Family Practice 10/03/19 Band Director Relationship Specialty Start Date End Date Clarence Rodriguez MD [address] [facility] [place] [address] PCP - General Family Practice 10/03/19 Band Director Relationship Specialty Start Date End Date Clarence Rodriguez MD [address] [place] [address], [place] [address] PCP - General Family Practice 10/03/19 Band Director Relationship Specialty Start Date End Date Clarence Rodriguez MD [address] [place] [address], [place] [address] PCP - General Family Practice 10/03/19 Band Director Relationship Specialty Start Date End Date Clarence Rodriguez MD [address] [place] [address], [place] [address] PCP - General Family Practice 10/03/19 Band Director Relationship Specialty Start Date End Date Clarence Rodriguez MD [address] [place] [address], [place] [address] PCP - General Family Practice 10/03/19 Band Director Relationship Specialty Start Date End Date Clarence Rodriguez MD [address] [place] [address], [place] [address] PCP - General Family Practice 10/03/19 Band Director Relationship Specialty Start Date End Date Clarence Rodriguez MD [address] [place] [address], [place] [address] PCP - General Family Practice 10/03/19 Band Director Relationship Specialty Start Date End Date Clarence Rodriguez MD [address] [place] [address], [place] [address] PCP - General Family Practice 10/03/19 Band Director Relationship Specialty Start Date End Date Clarence Rodriguez MD [address] [place] [address], [place] [address] PCP - General Family Practice 10/03/19 Band Director Relationship Specialty Start Date End Date Clarence Rodriguez MD [facility] [place] [address] PCP - General Family Practice 10/03/19 Band Director Relationship Specialty Start Date End Date Clarence Rodriguez MD [address] [place] [address], [place] [address] PCP - General Family Practice 10/03/19 Band Director Relationship Specialty Start Date End Date Clarence Rodriguez MD [address] [place] [address], [place] [address] PCP - General Family Medicine 10/03/19 Band Director Relationship Specialty Start Date End Date Clarence Rodriguez MD [address] [place] [address], [place] [address] PCP - General Family Medicine 10/03/19 Band Director Relationship Specialty Start Date End Date Clarence Rodriguez MD [address] [place] [address], [place] [address] PCP - General Family Medicine 10/03/19 Band Director Relationship Specialty Start Date End Date Clarence Rodriguez MD [address] [place] [address], [place] [address] PCP - General Family Medicine 10/03/19 Band Director Relationship Specialty Start Date End Date Clarence Rodriguez MD [address] [place] [address], [place] [address] PCP - General Family Medicine 10/03/19 Band Director Relationship Specialty Start Date End Date Clarence Rodriguez MD [address] [place] [address], [place] [address] PCP - General Family Medicine 10/03/19 Band Director Relationship Specialty Start Date End Date Clarence Rodriguez MD [address] [place] [address], [place] [address] PCP - General Family Medicine 10/03/19 Band Director Relationship Specialty Start Date End Date Clarence Rodriguez MD [address] [place] [address] PCP - General Family Medicine 10/03/19 Band Director Relationship Specialty Start Date End Date Clarence Rodriguez MD [address] [place] [address] PCP - General Family Medicine 10/03/19 Band Director Relationship Specialty Start Date End Date Clarence Rodriguez MD [address] [place] [address] PCP - General Family Medicine 10/03/19 Band Director Relationship Specialty Start Date End Date Clarence Rodriguez MD [address] [place] [address] PCP - General Family Medicine 10/03/19 Band Director Relationship Specialty Start [place] [address] [place] [address] PCP - General Family Medicine 10/03/19 Band Director Relationship Specialty Start Date End Date Clarence Rodriguez MD [address] [place] [address] PCP - General Family Medicine 10/03/19 Band Director Relationship Specialty Start Date End Date Clarence Rodriguez MD [address] [place] [address] PCP - General Family Medicine 10/03/19 Band Director Relationship Specialty Start Date End Date Clarence Rodriguez MD [address] [place] [address] PCP - General Family Medicine 10/03/19 Band Director Relationship Specialty Start Date End Date Clarence Rodriguez MD [address] [place] [address] PCP - General Family Medicine 10/03/19 Band Director Relationship Specialty Start Date End Date Clarence Rodriguez MD [address] [place] [address] PCP - General Family Medicine 10/03/19 Team [...] Rodriguez MD Attending Provider, Referring Provider Active Band Director Relationship Specialty Start Date End Date Clarence Rodriguez MD [address] [place] [address] PCP - General Family Medicine 10/03/19 Band Director Relationship Specialty Start Date End Date Clarence Rodriguez MD [address] [place] [address] PCP - General Family Medicine 10/03/19 Team Status: Inactive Member Role Status Dates Caryl LONGORIA PA Primary Care Provider Active Dr. Richelle Richards MD Emergency Provider Active Band Director Relationship Specialty Start Date End Date Clarence Rodriguez MD [address] [place] [address] PCP - General Family Medicine 10/03/19 Band Director Relationship Specialty Start Date End Date Clarence Rodriguez MD [address] [place] [address] PCP - General Family Medicine 10/03/19 Band Director Relationship Specialty Start Date End Date Clarence Rodriguez MD [address] [place] [address] PCP - General Family Medicine 10/03/19 Blanca Olivares APRN.RN ADMIT [address] [place] [id number] News Correspondent Family Medicine 06/29/24 Caryl Green PA-C [facility] [place] [address] News Correspondent Family Medicine 06/29/24 Band Director Relationship Specialty Start Date End Date Clarence Rodriguez MD [address] [place] [address] PCP - General Family Medicine 10/03/19 Blanca Olivares APRN.RN ADMIT [address] [place] [address] News Correspondent Family Medicine 06/29/24 Caryl Green PA-C [address] [place] [address] News Correspondent Family Medicine 06/29/24 Team Status: Active Member [...] section and content) DATE CREATED AUTHOR 08/07/2024 [facility] DATE CREATED AUTHOR 'S JOSSELYN MCLEOD 02/05/2025 [facility] FOR RECORDS PERTAINING TO PATIENTS WHO [...] BE BASED ON THE PRIMARY CLINICAL RECORDS. [employer] provides no warranty or guarantee of the accuracy or completeness of information in this document.
--- OUTSIDE RECORDS SUMMARY | 2025-02-09 15:06 | XMS RPT_ITS | CCD ---
Author Organization [facility] Care Team Providers Care Cured Meats Supervisor Name Role Phone Clarence Rodriguez MD Primary Care Provider [phone] SWATI Hilton Primary Care Provider Dr. Clarence Rodriguez Referring Provider Dr. Clarence Rodriguez Other Provider Dr. Segun Maciel Attending Provider Clarence Rodriguez MD Primary Care Provider Clarence Rodriguez MD Primary Care Provider Clarence Rodriguez MD Primary Care Provider Marshall TINOCOASSOCIATE EDITOR, Blanca Unavailable Caryl Green PA-C Unavailable CLARENCE RODRIGUEZ Attending Unavailable CLARENCE RODRIGUEZ Primary Care Unavailable CLARENCE RODRIGUEZ Attending Unavailable CLARENCE RODRIGUEZ Primary Care Unavailable CLARENCE RODRIGUEZ Primary Care Unavailable CLARENCE RODRIGUEZ Primary Care Unavailable CLARENCE RODRIGUEZ Primary Care Unavailable Caryl Hilton Primary Care Provider [phone] Dr. Jak Bates DO Emergency Provider Jak Bates Attending Caryl Schroeder Primary Care Unavailable Caryl Green Primary Care Unavailable Jak Bates Attending Dr. Jak Villafuerte DO Attending Provider Medications Current Medications Medication Drug Class(es) Dates [...] Comment on above: Take 1 tablet by [facility] every 8 hours as needed for pain [...] Comment on above: Take 1 capsule by [facility] twice daily for 10 days. amoxicillin [...] maleate 100 mg extended release oral capsule (7 sources) Serotonin Reuptake Inhibitor Start: take 1 capsule by mouth every twenty-four hours at bedtime Fluvoxamine 100 mg capsule,extended release 24hr Active 100 mg PO AT BEDTIME 2025 12:00am Start: 07-22-2023 take 1 capsule by mo [facility] once daily at bedtime fluvoxaMINE ER (LUVOX [...] for pain. cephalexin 500 mg oral capsule (8 sources) Cephalosporin Antibacterial Start: 02-13-2022 End: 2025 [...] as needed metroNIDAZOLE 500 mg oral tablet (8 sources) Nitroimidazole Antimicrobial Start: End: take 1 tablet by mouth three times daily Metronidazole 500 MG tablet Discontinued 500 mg PO THREE TIMES A DAY 12 4 0 August 13, 2019 1:00am August 16, 2019 1:00am August 17, 2019 1:08am omeprazole 40 mg delayed release oral capsule (10 sources) Proton Pump Inhibitor Start: End: take 1 capsule by mouth once daily [...] on above: Take 1 capsule by mo [facility] daily before breakfast. 1/2 hr before meal. [...] Potassium Chloride (Klor-Con M20) 20 MEQ Tab.Er.Prt (8 sources) Start: 08-13-2019 End: 08-20-2019 take 1 [...] mg / trimethoprim 160 mg oral tablet (13 sources) Dihydrofolate Reductase Inhibitor Antibacterial, Sulfonamide Antimicrobial [...] on above: Take 1 capsule by mo [facility] once daily for 7 days, THEN 2 capsules once daily. Take 1 capsule by mo [facility] once daily. Problems Active Problems Problem Classification Problem Date Documented Date Episodic/Chronic Abdominal pain (2 sources) Flank pain; Translations: [Unspecified abdominal pain] Episodic Acute and chronic tonsillitis (1 source) Tonsillitis; Translations: [Acute tonsillitis, unspecified] 08-02-2024 Episodic Anxiety disorders (20 sources) Generalized anxiety disorder; Translations: [Generalized anxiety disorder] Onset: 08-16-2019 08-16-2019 Chronic Asthma (8 sources) Asthma; Translations: [Unspecified asthma, uncomplicated] 07-19-2019 Chronic Calculus of urinary tract (20 sources) Ureteric colic; Translations: [Unspecified renal colic] 11-22-2020 Episodic Chronic obstructive pulmonary disease and bronchiectasis (8 sources) Purulent bronchitis; Translations: [Mucopurulent chronic bronchitis] 07-19-2019 Chronic E Codes: Cut/pierceb (7 sources) Accident caused by powered vice investigator; Translations: [Contact with powered vice investigator, initial encounter] 03-23-2022 Episodic E Codes: Machinery (1 source) Contact with unspecified agricultural machinery, initial encounter; Translations: [Accidents caused by agricultural machines] Episodic E Codes: Natural/environment (3 sources) Mammal bite wound; Translations: [Bitten by raccoon, initial encounter] 2025 Episodic Esophageal disorders (15 sources) Gastroesophageal reflux disease without esophagitis; Translations: [Gastro-esophageal reflux disease without esophagitis] Onset: 03-01-2023 03-01-2023 Chronic Fluid and electrolyte disorders (8 sources) Dehydration; Translations: [Dehydration] 08-12-2019 Episodic Hepatitis (13 sources) Nonalcoholic steatohepatitis; Translations: [Nonalcoholic steatohepatitis (LOCKHART)] Onset: 03-01-2023 03-01-2023 Chronic Mood disorders (1 source) Mild depression; Translations: [Mild depression] Chronic Mycoses (1 source) Candidiasis; Translations: [Candidiasis, unspecified] 03-01-2023 Episodic Noninfectious gastroenteritis (8 sources) Colitis; Translations: [Noninfective gastroenteritis and colitis, unspecified] 08-10-2019 Episodic Nonspecific chest pain (1 source) Atypical chest pain; Translations: [Other chest pain] 04-20-2023 Episodic Open wounds of extremities (8 sources) Laceration of left middle finger; Translations: [...] elsewhere classified] Chronic Other lower respiratory disease (8 sources) Hemoptysis; Translations: [Hemoptysis] 08-13-2019 Episodic Other lower respiratory disease (2 sources) Rib pain; Translations: [Pleurodynia] 03-04-2023 Episodic Other nervous system disorders (8 sources) Dysphasia; Translations: [Dysphasia] 08-12-2019 Episodic Other [...] and signs] 03-01-2023 Episodic Residual codes; unclassified (8 sources) Contact with and (suspected) exposure to [...] of thorax, initial encounter] 03-23-2022 Episodic Unclassified (8 sources) No history of clinical finding in [...] Department Summary on 2025 Emergency Department Summary [facility] Medical Records Department [address] [place] [address] Emergency Department Summary 02/02/25 MR#: [id number] Acct: [id number] Name: ALDAIR YEPEZ Rep #: [id number] : 1995 30 From: Jak Bates DO [...] intact Psych: Cooperative, appropriate mood and affect [facility] Medical History Anxiety Chewing tobacco use [...] from when you were bit. Print Language: Honduran Disposition Disposition: Home, Self Care Discharge Date/Time: 02/02/25 04:25 What to do if you have Problems For any increased pain, shortness of breath, bleeding, nausea or vomiting, chest pain, or any unexpected problems, contact your Primary Care Provider. Call [facility] ([phone]) or report to the closest Emergency Room. Call 911 if necessary. 02/02/25 [id number] Cosigner Signature (if applicable): CC: SWATI Zhao Signed Normal [facility] CNOVon 08-02-2024 CNOV Office Visit (FAMPWS ) ALDAIR YEPEZ ([id number]) 1995 M Date Time Provider Department 08/02/24 10:20 AM [facility] your visit today, we recorded [...] Relation Age of Onset Heart Maternal Grandfather [place] Hypertension Mother None Father Heart Maternal Uncle [...] Vaccine(1) due on 03/24/2024 Covid-19 Vaccine( - season) Never done DTaP,Tdap,Td Vaccine(10 - Td [...] Signed Prescri (more content not included)... Normal [facility] CNOVon 07-08-2024 CNOV Office Visit (UCTR ) ALDAIR YEPEZ ([id number]) 1995 M Date Time Provider Department 07/08/24 7:30 AM CLARENCE GILES [facility] During your visit today, we recorded the following information about you: Temperature Pulse Respiration Blood pressure 98.8 degrees 90/minute 16/minute 108/64 Weight 133.9 kg Clarence Giles APRN.ASSOCIATE EDITOR 07/08/2024 8:02 AM Signed Subjective HPI Nontoxic-appearing [...] Relation Age of Onset Heart Maternal Grandfather [place] Hypertension Mother None Father Heart Maternal Uncle [...] He is (more content not included)... Normal [facility] STREP A MOLECULAR (POC)on Interpretation and review of laboratory results Abnormal [facility] Procedural Control Valid [facility] Strep A (POCT) Positive Abnormal Negative [facility] CNOVon 05-29-2024 CNOV Office Visit (UCWSTR ) ALDAIR YEPEZ ([id number]) 1995 M Date Time Provider Department 05/29/24 2:45 PM CASE GARRETT [facility] During your visit today, we recorded the following information about you: Temperature Pulse Respiration Blood pressure 97.8 degrees 80/minute 16/minute 112/78 Weight 133.9 kg Case Garrett APRN.ASSOCIATE EDITOR 05/29/2024 3:04 PM Signed This note was created using [employer]. Subjective Aldair Yepez is a 29 year [...] Date Reviewed: 05/29/2024 Reviewed by: Case Garrett APRN.ASSOCIATE EDITOR - Fully Assessed Reason for Visit: Ear Pain [817] Cmt: Bilateral ear pain and ST x 2 days Primary Visit Diagnosis:Sore throat [J02.9] Other Visit Diagnosis:Acute otitis media, right [H66.91] Order(s):STREP A MOLECULAR (POC) [1997763] Order #: [id number]. #:[id number] amoxicillin (AMOXIL) 875 mg tabletTake 1 [...] Status:Closed by CASE GARRETT on 05/29/24 Normal [facility] STREP A MOLECULAR (POC)on Procedural Control Valid [facility] Strep A (POCT) Negative Negative [facility] CNOVon 11-13-2023 CNOV Office Visit (UCWSTR ) ALDAIR YEPEZ ([id number]) 1995 M Date Time Provider Department 11/13/23 6:00 PM ZULEYMA ALDANA [facility] During your visit today, we recorded the following information about you: Temperature Pulse Respiration Blood pressure 98 degrees 77/minute 21/minute 124/68 Weight 134.1 kg Zuleyma Aldana APRN.ASSOCIATE EDITOR 11/13/2023 6:24 PM Signed Subjective HPI Aldair [...] thumb and index- accidental. MYRINGOTOMY ASPIRAND/EUSTACHIAN TUBE LT ANES Myringotomy/tubes MYRINGOTOMY ASPIRAND/EUSTACHIAN TUBE LT ANES Myringotomy/tubes ALLERGIES Patient has no known [...] Relation Age of Onset Heart Maternal Grandfather [place] Hypertension Mother None Father Heart Maternal Uncle [...] go to ER as advised. Zuleyma Aldana, BLAKE.ASSOCIATE EDITOR Allergies As of Date: 11/13/2023 (No Known [...] LOCKHART (nonalcoholic (more content not included)... Normal [facility] CNOVon 08-09-2023 CNOV Office Visit (FAMPWS ) ALDAIR YEPEZ ([id number]) 1995 M Date Time Provider Department 08/09/23 10:40 AM CLARENCE RODRIGUEZ [facility] During your visit today, we recorded the following information about you: Pulse Respiration Blood pressure Weight 68/minute 16/minute 114/70 123.8 kg Clarence Rodriguez MD 08/10/2023 9:19 AM Signed Chief Complaint Patient presents with: Follow Up HPI Aldair Hwang Baljinder is a 28 year old male who [...] and a maternal grandfather who of a [place] in either his 40-50's. Past medical history, [...] Relation Age of Onset Heart Maternal Grandfather [place] Hypertension Mother None Father Heart Maternal Uncle [...] distress, well-hydrated (more content not included)... Normal [facility] XR RIBS/CHEST 3V AP RIB/OBLS /CXR LEFTon 03-04-2023 [facility] XR Ribs - left Views and Anai st PAon 03-04-2023 IMPRESSION: No evide nce of acute left rib fracture. Restaurant Cook: RICARDO Transcribe Date/Time: Mar 04 2023 10:43A Dictated by : ELINA TORRES MD This examination was interpreted and the report reviewed and electronically signed by: ELINA TORRES MD on Mar 04 2023 10:45AM [facility] * * *Final Report* [...] No evidence of acute left rib fracture. Restaurant Cook: RICARDO Transcribe Date/Time: Mar 04 2023 10:43A Dictated by : ELINA TORRES MD This examination was interpreted and the report reviewed and electronically signed by: ELINA TORRES MD on Mar 04 2023 10:45AM EST [facility] Radiology Study observation (narrative) [facility] XR Ribs - left Views and Anai st PAOrdered By: Ccf Provider on 03-04-2023 [facility] HbA1c (Bld)on 03-02-2023 Average glucose Estimated from glycated hemoglobin (Bld) [Mass/Vol] 108 mg/dL [facility] HbA1c (Bld) [Mass fraction] 5.4 % 4.3 - 5.6 % [facility] Hepatic function 2000 panelo n 03-02-2023 Albumin [Mass/Vol] 4.3 g/dL 3.9 - 4.9 g/dL [facility] ALP [Catalytic activity/Vol] 71 U/L 38 - 113 U/L [facility] ALT [Catalytic activity/Vol] 73 U/L High 10 - 54 U/L [facility] AST [Catalytic activity/Vol] 51 U/L High 14 - 40 U/L [facility] Bilirubin [Mass/Vol] 0.4 mg/dL 0.2 - 1.3 mg/dL [facility] Bilirubin.conjuga mary alice [Mass/Vol] <0.2 mg/dL [facility] Protein [Mass/Vol] 6.8 g/dL 6.3 - 8.0 g/dL [facility] LIPID PANEL, NONFASTINGon Cholesterol [Mass/Vol] 171 mg/dL <200 mg/dL [facility] HDL Cholesterol, Nonfasting 39 mg/dL Low >39 mg/dL [facility] LDL Cholesterol, Nonfasting 103 mg/dL High <100 mg/[facility] LDL/HDL Ratio, Nonfasting 2.64 mg/dL High <2.54 mg/dL [facility] Non HDL Cholesterol, Nonfasting 132 mg/dL High <130 mg/dL [facility] Total Chol/HDL Ratio, Nonfasting 4.38 mg/dL <5.10 mg/dL [facility] Triglycerides, Nonfasting 144 mg/dL <150 mg/dL [facility] VLDL Cholesterol, Nonfasting 29 mg/dL <30 mg/dL [facility] TSH BLDon 03-02-2023 TSH Qn 2.130 m[IU]/L 0.270 - 4.200 mIU/L [facility] CBC W Auto Differential pane l (Bld)on 03-01-2023 Basophils (Bld) [#/Vol] 0.08 10*3/uL <0.11 k/uL [facility] Basophils/100 WBC (Bld) 1.0 % [facility] Differential cell count method Nom (Bld) Auto [facility] Eosinophils (Bld) [#/Vol] 0.33 10*3/uL <0.46 k/uL [facility] Eosinophils/100 WBC (Bld) 4.3 % [facility] Erythrocyte distribution width (RBC) [Ratio] 13.7 % 11.5 - 15.0 % [facility] Hematocrit (Bld) [Volume fraction] 46.8 % 39.0 - 51.0 % [facility] Hemoglobin (Bld) [Mass/Vol] 15.3 g/dL 13.0 - 17.0 g/dL [facility] Immature granulocytes (Bld) [#/Vol] <0.10 k/uL [facility] Immature granulocytes/100 WBC (Bld) 0.3 % [facility] Lymphocytes (Bld) [#/Vol] 2.17 10*3/uL 1.00 - 4.00 k/uL [facility] Lymphocytes/100 WBC (Bld) 28.1 % [facility] MCH (RBC) [Entitic mass] 28.0 pg 26.0 - 34.0 pg [facility] MCHC (RBC) [Mass/Vol] 32.7 g/dL 30.5 - 36.0 g/dL [facility] MCV (RBC) [Entitic vol] 85.7 fL 80.0 - 100.0 fL [facility] Monocytes (Bld) [#/Vol] 0.76 10*3/uL <0.87 k/uL [facility] Monocytes/100 WBC (Bld) 9.8 % [facility] Neutrophils (Bld) [#/Vol] 4.37 10*3/uL 1.45 - 7.50 k/uL [facility] Neutrophils/100 WBC (Bld) 56.5 % [facility] Nucleated RBC (Bld) [#/Vol] <0.01 k/uL [facility] Nucleated RBC/100 WBC (Bld) [Ratio] 0.0 /100 WBC [facility] Platelet mean volume (Bld) [Entitic vol] 11.4 fL 9.0 - 12.7 fL [facility] Platelets (Bld) [#/Vol] 247 10*3/uL 150 - 400 k/uL [facility] RBC (Bld) [#/Vol] 5.46 10*6/uL 4.20 - 6.0 0 m/uL [facility] WBC (Bld) [#/Vol] 7.73 10*3/uL 3.70 - 11. 00 k/uL [facility] US ABD RIGHT UPPER QUADRANTo n 12-20-2022 [facility] STREP A MOLECULAR (POC)on Procedural Control Valid [facility] Strep A (POCT) Positive Abnormal Negative [facility] No Panel Informationon 05-09 [facility] XR SHOULDER GENERAL 3V OR MO RE AP/TRUE AP/OTHER LEFTon 04-28-2022 [facility] Absolute lymphocyte counton 03-22-2022 Lymphocytes Auto (Unsp spec) [#/Vol] 1.76 10*3/uL 0.83-4.51 [facility] Work Phone: Basophil percentageon 2021 Basophils/100 WBC (Bld) 0.6 % 0-1 [facility] Work Phone: Bilirubin [Mass/Vol] 0.40 mg/dL 0.20-1.00 [facility] Work Phone: Comment on above: For patients on eltr ombopag therapy, use of Dimension [place] TBIL is not recommended. Chloride [Moles/Vol] 105 mmol/L 98-107 [facility] Work Phone: Eosinophils/100 WBC (Bld) 8.4 % 0-5 [facility] Work Phone: Glucose [Mass/Vol] 94 mg/dL 74-106 [facility] Work Phone: Neutrophils (Bld) [#/Vol] 5.9 10*3/uL 2.0-7.7 [facility] Work Phone: Neutrophils/100 WBC (Bld) 61.0 % 47-70 [facility] Work Phone: Potassium [Moles/Vol] 4.2 mmol/L 3.5-5.1 [facility] Work Phone: Protein [Mass/Vol] 7.8 g/dL 6.4-8.2 [facility] Work Phone: [phone] Sodium [Moles/Vol] 140 mmol/L 136-145 [facility] Work Phone: [phone] WBC (Bld) [#/Vol] 9.6 10*3/uL 4.4-11.0 [facility] Work Phone: [phone] Blood erythrocytes count (nu mber/volume)on 03-22-2022 RBC (Bld) [#/Vol] 4.89 10*6/uL 4.6-6.2 [facility]: [phone] Blood hemoglobin measurement (mass/volume)on 03-22-2022 Hemoglobin (Bld) [Mass/Vol] 14.5 g/dL 13.0-16.5 [facility] Work Phone: [phone] Blood lymphocytes/100 leukoc yteson 03-22-2022 Lymphocytes/100 WBC (Bld) 18.3 % 19-41 [facility] Work Phone: [phone] Blood monocytes/100 leukocyt eson 03-22-2022 Monocytes/100 WBC (Bld) 11.3 % 0-10 [facility] Work Phone: [phone] Blood platelet mean volumeon 03-22-2022 Platelet mean volume (Bld) [Entitic vol] 10.2 fL 6.2-12.0 [facility] Work Phone: [phone] Determination of erythrocyte mean corpuscular volume (MCV)on 03-22-2022 MCV (RBC) [Entitic vol] 90.6 fL 80-94 [facility] Work Phone: [phone] Hematocrit Auto (Bld) [Volum e fraction]on 03-22-2022 Hematocrit (Bld) [Volume fraction] 44.3 % 40-54 [facility] Work Phone: [phone] Laboratory - Chemistry and C hemistry - challengeon 03-22-2022 ALP [Catalytic activity/Vol] 96 U/L 45-117 [facility] Work Phone: ALT [Catalytic activity/Vol] 77 U/L 16-61 [facility] Work Phone: [phone] CO2 [Moles/Vol] 28.0 mmol/L 21.0-32.0 [facility] Work Phone: [phone] Globulin (S) [Mass/Vol] 4.2 g/dL 2.2-4.2 [facility] Work Phone: [phone] Urea nitrogen/Creatini ne [Mass ratio] 12.6 mg/mg 10-20 [facility] Work Phone: [phone] Laboratory - Hematology and Cell countson 03-22-2022 Erythrocyte distribution width (RBC) [Entitic vol] 45.1 fL 35.1-43.9 [facility] Work Phone: [phone] Erythrocyte distribution width (RBC) [Ratio] 13.5 % 11.6-14.6 [facility] Work Phone: [phone] Immature granulocytes/100 WBC (Bld) 0.400 % 0.0-0.9 [facility] Work Phone: [phone] Comment on above: IG% - Immature Granu locytes (promyelocytes, myelocytes and metamyelocytes) > 1% indicates that a LEFT SHIFT is Present. MCH (RBC) [Entitic mass] 29.7 pg 27.0-32.0 [facility] Work Phone: [phone] Nucleated RBC/100 WBC (Bld) [Ratio] 0 % 0-5 [facility] Work Phone: [phone] MCHC Auto (RBC) [Mass/Vol]on 03-22-2022 MCHC (RBC) [Mass/Vol] 32.7 g/dL 32-36 [facility] Work Phone: [phone] Panel Informationon 03-22 Estimated GFR (MDRD) Amer 111 mL/min >60 [facility] Work Phone: [phone] Comment on above: GFR Calc Estimated GFR (MDRD) Non-Af Amer 92 mL/min >60 [facility] Work Phone: [phone] Comment on above: Non- GFR Calc Platelets bldon 03-22-2022 Platelets (Bld) [#/Vol] 262 10*3/uL 150-450 [facility] Work Phone: Serum or plasma albumin benigno urement (mass/volume)on 03-22-2022 Albumin [Mass/Vol] 3.6 g/dL 3.2-5.0 [facility] Work Phone: Serum or plasma albumin/glob ulin mass ratioon 03-22-2022 Albumin/Globulin [Mass ratio] 0.9 {ratio} 0.9-2.4 [facility] Work Phone: Serum or plasma calcium benigno urement (mass/volume)on 03-22-2022 Calcium [Mass/Vol] 9.0 mg/dL 8.5-10.1 [facility] Work Phone: Serum or plasma creatinine m easurement (mass/volume)on 03-22-2022 Creatinine [Mass/Vol] 1.03 mg/dL 0.70-1.30 [facility] Work Phone: Comment on above: The validity of the calculated GFR & GFRAA in patients over 70 years has not been determined. Clinical correlation is essential. Serum or plasma urea nitroge n measurement (mass/volume)on 03-22-2022 Urea nitrogen [Mass/Vol] 13 mg/dL 7-18 [facility] Work Phone: Thin prep Papanicolaou smear with manual screeningon 03-22-2022 Thin prep Papanicolaou smear with manual screening 38 U/L 15-37 [facility] Work Phone: Thin prep Papanicolaou smear with manual screening 7 5-15 [facility] Work Phone: UA DIP, URINE (POC)on 2021 BILIRUBIN UA (POCT) Negative Negative [facility] CLARITY UA (POCT) Cloudy [facility] COLOR UA (POCT) Kelly [facility] GLUCOSE UA (POCT) Negative Negative mg/dL [facility] HEMOGLOBIN/BLOOD UA (POCT) Large Abnormal Negative [facility] KETONE UA (POCT) Negative Negative mg/dL [facility] LEUKOCYTES UA (POCT) Large Abnormal Negative [facility] NITRITE UA (POCT) Positive Abnormal Negative [facility] PH UA (POCT) 5.5 4.5 - 8.0 [facility] Protein Ql (U) 100 mg/dL Abnormal Negative mg/dL [facility] SPECIFIC GRAVITY UA (POCT) >=1.030 1.005 - 1.030 [facility] UROBILINOGEN UA (POCT) 0.2 E.U./dL Normal E.U./dL [facility] Vital Signs Date Time Vital Sign Value Performing Clinician Facility 02-09-2025 12:33-0400 Body height 187.96 cm Caryl LONGORIA Work Phone: [phone] [place] [address] 02-09-2025 12:33-0400 Body mass index (BMI) [Ratio] 29.4 kg/m2 Caryl LONGORIA Work Phone: [phone] [place] [address] 02-09-2025 12:33-0400 Body temperature 98 [degF] Caryl LONGORIA Work Phone: [phone] [place] [address] 02-09-2025 12:33-0400 Body weight 103.82 kg Caryl LONGORIA Work Phone: [phone] [place] [address] 02-09-2025 12:33-0400 Diastolic blood pressure 80 mm[Hg] Caryl LONGORIA Work Phone: [phone] [place] [address] 02-09-2025 12:33-0400 Heart rate 60 /min Caryl LONGORIA Work Phone: [phone] [place] [address] 02-09-2025 12:33-0400 Respiratory rate 16 /min Caryl LONGORIA Work Phone: [phone] [place] [address] 02-09-2025 12:33-0400 SaO2% (BldA) [Mass fraction] 100 % Caryl LONGORIA Work Phone: [phone] [place] [address] 02-09-2025 12:33-0400 Systolic blood pressure 130 mm[Hg] Caryl LONGORIA Work Phone: [phone] [place] [address] 02-05-2025 14:01-0400 Body weight 147.55 kg Caryl Green PA Work Phone: [facility] 02-05-2025 13:12-0400 Body height 187.96 cm Caryl Green PA Work Phone: [facility] 02-05-2025 13:12-0400 Body mass index (BMI) [Ratio] 41.8 kg/m2 Caryl Green PA Work Phone: [facility] 02-05-2025 13:12-0400 Body temperature 98.4 [degF] Caryl Green PA Work Phone: [facility] 02-05-2025 13:12-0400 Diastolic blood pressure 91 mm[Hg] Caryl Green PA Work Phone: [facility] 02-05-2025 13:12-0400 Heart rate 81 /min Caryl Green PA Work Phone: [phone] [place] [address] 02-05-2025 13:12-0400 Respiratory rate 18 /min Caryl Green PA Work Phone: [phone] [place] [address] 02-05-2025 13:12-0400 SaO2% (BldA) [Mass fraction] 99 % Caryl rGeen PA Work Phone: [facility] 02-05-2025 13:12-0400 Systolic blood pressure 131 mm[Hg] Caryl Green PA Work Phone: [phone] [place] [address] 2025 04:24-0400 Body temperature 97.8 [degF] Caryl Green PA Work Phone: [phone] [place] [address] 2025 04:24-0400 Diastolic blood pressure 87 mm[Hg] Caryl Green PA Work Phone: [facility] 2025 04:24-0400 Heart rate 81 /min Caryl Green PA Work Phone: [phone] [place] [address] 2025 04:24-0400 Respiratory rate 16 /min Caryl Green PA Work Phone: [facility] 2025 04:24-0400 SaO2% (BldA) [Mass fraction] 99 % Caryl LONGORIA Work Phone: [facility] 2025 04:24-0400 Systolic blood pressure 125 mm[Hg] Caryl LONGORIA Work Phone: [facility] 02-01-2025 23:51-0400 Body height 187.96 cm Caryl LONGORIA Work Phone: [facility] 02-01-2025 23:51-0400 Body mass index (BMI) [Ratio] 42.8 kg/m2 Caryl LONGORIA Work Phone: [facility] 02-01-2025 23:51-0400 Body weight 151.45 kg Caryl LONGORIA Work Phone: [facility] 08-02-2024 10:25-0500 Body mass index (BMI) [Ratio] 37.59 kg/m2 Clarecne Rodriguez MD Work Phone: [facility] 08-02-2024 10:25-0500 Body temperature 98.49 [degF] Clarence Rodriguez MD Work Phone: [facility] 08-02-2024 10:25-0500 Body weight 134.26 kg Clarence Rodriguez MD Work Phone: [facility] 08-02-2024 10:25-0500 Diastolic blood pressure 90 mm[Hg] Clarence Rodriguez MD Work Phone: [facility] 08-02-2024 10:25-0500 Heart rate 80 /min Clarence Rodriguez MD Work Phone: [facility] 08-02-2024 10:25-0500 Respiratory rate 18 /min Clarence Rodriguez MD Work Phone: [facility] 08-02-2024 10:25-0500 SaO2% (BldA) [Mass fraction] 97 % Clarence Rodriguez MD Work Phone: [facility] 08-02-2024 10:25-0500 Systolic blood pressure 118 mm[Hg] Clarence Rodriguez MD Work Phone: [facility] 07-08-2024 07:33-0500 Body mass index (BMI) [Ratio] 37.48 kg/m2 Clarence Giles MOLD TECHNICIAN.ASSOCIATE EDITOR Work Phone: [facility] 07-08-2024 07:33-0500 Body temperature 98.8 [degF] Clarence Giles MOLD TECHNICIAN.ASSOCIATE EDITOR Work Phone: [facility] 07-08-2024 07:33-0500 Body weight 133.87 kg Clarence Giles MOLD TECHNICIAN.ASSOCIATE EDITOR Work Phone: [facility] 07-08-2024 07:33-0500 Diastolic blood pressure 64 mm[Hg] Clarence Giles MOLD TECHNICIAN.ASSOCIATE EDITOR Work Phone: [facility] 07-08-2024 07:33-0500 Heart rate 90 /min Clarence Giles MOLD TECHNICIAN.ASSOCIATE EDITOR Work Phone: [facility] 07-08-2024 07:33-0500 Respiratory rate 16 /min Clarence Giles MOLD TECHNICIAN.ASSOCIATE EDITOR Work Phone: [facility] 07-08-2024 07:33-0500 SaO2% (BldA) [Mass fraction] 97 % Clarence Giles MOLD TECHNICIAN.ASSOCIATE EDITOR Work Phone: [facility] 07-08-2024 07:33-0500 Systolic blood pressure 108 mm[Hg] Clarence Giles MOLD TECHNICIAN.ASSOCIATE EDITOR Work Phone: [facility] 05-29-2024 14:46-0500 Body mass index (BMI) [Ratio] 37.49 kg/m2 Case Garrett MOLD TECHNICIAN.ASSOCIATE EDITOR Work Phone: [facility] 05-29-2024 14:46-0500 Body temperature 97.81 [degF] Case Moomaw MOLD TECHNICIAN.ASSOCIATE EDITOR Work Phone: [facility] 05-29-2024 14:46-0500 Body weight 133.9 kg Case Bergerw MOLD TECHNICIAN.ASSOCIATE EDITOR Work Phone: [facility] 05-29-2024 14:46-0500 Diastolic blood pressure 78 mm[Hg] Case Moomaw MOLD TECHNICIAN.ASSOCIATE EDITOR Work Phone: [facility] 05-29-2024 14:46-0500 Heart rate 80 /min Case Moomaw MOLD TECHNICIAN.ASSOCIATE EDITOR Work Phone: [facility] 05-29-2024 14:46-0500 Respiratory rate 16 /min Case Moomaw MOLD TECHNICIAN.ASSOCIATE EDITOR Work Phone: [facility] 05-29-2024 14:46-0500 SaO2% (BldA) [Mass fraction] 97 % Case Moomaw MOLD TECHNICIAN.ASSOCIATE EDITOR Work Phone: [facility] 05-29-2024 14:46-0500 Systolic blood pressure 112 mm[Hg] Case Moomaw MOLD TECHNICIAN.ASSOCIATE EDITOR Work Phone: [facility] 11-13-2023 19:16-0400 Body temperature 97.9 [degF] [place] 11-13-2023 19:16-0400 Diastolic blood pressure 74 mm[Hg] [facility] 11-13-2023 19:16-0400 Heart rate 80 /min [facility] 11-13-2023 19:16-0400 Respiratory rate 16 /min [place] 11-13-2023 19:16-0400 SaO2% (BldA) [Mass fraction] 97 % [facility] 11-13-2023 19:16-0400 Systolic blood pressure 130 mm[Hg] [facility] 11-13-2023 18:28-0400 Body height 188.01 cm [facility] 11-13-2023 18:28-0400 Body mass index (BMI) [Ratio] 37.8 kg/m2 [facility] 11-13-2023 18:28-0400 Body weight 133.94 kg [facility] 11-13-2023 18:02-0400 Body mass index (BMI) [Ratio] 37.54 kg/m2 Zuleyma Aldnaa MOLD TECHNICIAN.ASSOCIATE EDITOR Work Phone: [facility] 11-13-2023 18:02-0400 Body temperature 98.01 [degF] Zuleyma Praisler-Wood MOLD TECHNICIAN.ASSOCIATE EDITOR Work Phone: [facility] 11-13-2023 18:02-0400 Body weight 134.1 kg Zuleyma Praisler-Wood MOLD TECHNICIAN.ASSOCIATE EDITOR Work Phone: [facility] 11-13-2023 18:02-0400 Diastolic blood pressure 68 mm[Hg] Zuleyma Praisler-Wood MOLD TECHNICIAN.ASSOCIATE EDITOR Work Phone: [facility] 11-13-2023 18:02-0400 Heart rate 77 /min Zuleyma Praisler-Wood MOLD TECHNICIAN.ASSOCIATE EDITOR Work Phone: [facility] 11-13-2023 18:02-0400 Respiratory rate 21 /min Zuleyma Praisler-Wood MOLD TECHNICIAN.ASSOCIATE EDITOR Work Phone: [facility] 11-13-2023 18:02-0400 SaO2% (BldA) [Mass fraction] 98 % Zuleyma Praisler-Wood MOLD TECHNICIAN.ASSOCIATE EDITOR Work Phone: [facility] 11-13-2023 18:02-0400 Systolic blood pressure 124 mm[Hg] Zuleyma Praisler-Wood MOLD TECHNICIAN.ASSOCIATE EDITOR Work Phone: [facility] 05-31-2023 18:22-0500 Body weight 125.65 kg Clarence Rodriguez MD Work Phone: [facility] 05-31-2023 18:22-0500 Diastolic blood pressure 74 mm[Hg] Clarence Rodriguez MD Work Phone: [facility] 05-31-2023 18:22-0500 Heart rate 62 /min Clarence Rodriguez MD Work Phone: [facility] 05-31-2023 18:22-0500 Respiratory rate 16 /min Clarence Rodriguez MD Work Phone: [facility] 05-31-2023 18:22-0500 Systolic blood pressure 114 mm[Hg] Clarecne Rodriguez MD Work Phone: [facility] 04-20-2023 09:30-0400 Body temperature 97 [degF] Clarence Rodriguez MD Work Phone: [facility] 04-20-2023 09:30-0400 Body weight 125.19 kg Clarence Rodriguez MD Work Phone: [facility] 04-20-2023 09:30-0400 Diastolic blood pressure 64 mm[Hg] Clarence Rodriguez MD Work Phone: [facility] 04-20-2023 09:30-0400 Heart rate 58 /min Clarence Rodriguez MD Work Phone: [facility] 04-20-2023 09:30-0400 Respiratory rate 16 /min Clarence Rodriguez MD Work Phone: [facility] 04-20-2023 09:30-0400 Systolic blood pressure 110 mm[Hg] Clarence Rodriguez MD Work Phone: [facility] 03-04-2023 09:27-0400 Body temperature 97.39 [degF] Uma Barbara MOLD TECHNICIAN.ASSOCIATE EDITOR Work Phone: [facility] 03-04-2023 09:27-0400 Body weight 132.45 kg Uma Barbara MOLD TECHNICIAN.ASSOCIATE EDITOR Work Phone: [facility] 03-04-2023 09:27-0400 Diastolic blood pressure 62 mm[Hg] Uma Barbara MOLD TECHNICIAN.ASSOCIATE EDITOR Work Phone: [facility] 03-04-2023 09:27-0400 Heart rate 74 /min Uma Barbara MOLD TECHNICIAN.ASSOCIATE EDITOR Work Phone: [facility] 03-04-2023 09:27-0400 Respiratory rate 16 /min Uma Barbara MOLD TECHNICIAN.ASSOCIATE EDITOR Work Phone: [facility] 03-04-2023 09:27-0400 SaO2% (BldA) [Mass fraction] 97 % Uma Barbara MOLD TECHNICIAN.ASSOCIATE EDITOR Work Phone: [facility] 03-04-2023 09:27-0400 Systolic blood pressure 112 mm[Hg] Uma Barbara MOLD TECHNICIAN.ASSOCIATE EDITOR Work Phone: [facility] 03-01-2023 16:09-0400 Body weight 132.9 kg Clarence Rodriguez MD Work Phone: [facility] 03-01-2023 16:09-0400 Diastolic blood pressure 84 mm[Hg] Clarence Rodriguez MD Work Phone: [facility] 03-01-2023 16:09-0400 Heart rate 70 /min Clarence Rodriguez MD Work Phone: [facility] 03-01-2023 16:09-0400 Respiratory rate 16 /min Clarence Rodriguez MD Work Phone: [facility] 03-01-2023 16:09-0400 Systolic blood pressure 122 mm[Hg] Clarence Rodriguez MD Work Phone: [facility] 10-19-2022 09:22-0400 Body temperature 98.01 [degF] Josselyn Callausten MOLD TECHNICIAN.ASSOCIATE EDITOR Work Phone: [facility] 10-19-2022 09:22-0400 Body weight 156.67 kg Josselyn Callausten MOLD TECHNICIAN.ASSOCIATE EDITOR Work Phone: [facility] 10-19-2022 09:22-0400 Diastolic blood pressure 84 mm[Hg] Josselyn Callow MOLD TECHNICIAN.ASSOCIATE EDITOR Work Phone: [facility] 10-19-2022 09:22-0400 Heart rate 102 /min Josselyn Callausten MOLD TECHNICIAN.ASSOCIATE EDITOR Work Phone: [facility] 10-19-2022 09:22-0400 Respiratory rate 18 /min Josselyn Callow MOLD TECHNICIAN.ASSOCIATE EDITOR Work Phone: [facility] 10-19-2022 09:22-0400 SaO2% (BldA) [Mass fraction] 97 % Josselyn Callow MOLD TECHNICIAN.ASSOCIATE EDITOR Work Phone: [facility] 10-19-2022 09:22-0400 Systolic blood pressure 122 mm[Hg] Josselyn Callow MOLD TECHNICIAN.ASSOCIATE EDITOR Work Phone: [facility] 03-22-2022 13:46-0400 Body weight 151.05 kg Nae Domínguez MOLD TECHNICIAN.ASSOCIATE EDITOR Work Phone: [facility] 03-22-2022 13:46-0400 Diastolic blood pressure 100 mm[Hg] Nae Domínguez MOLD TECHNICIAN.ASSOCIATE EDITOR Work Phone: [facility] 03-22-2022 13:46-0400 Heart rate 98 /min Nae Chaudhariagen MOLD TECHNICIAN.ASSOCIATE EDITOR Work Phone: [facility] 03-22-2022 13:46-0400 Respiratory rate 18 /min Nae Domínguez MOLD TECHNICIAN.ASSOCIATE EDITOR Work Phone: [facility] 03-22-2022 13:46-0400 SaO2% (BldA) [Mass fraction] 98 % Nae Domínguez MOLD TECHNICIAN.ASSOCIATE EDITOR Work Phone: [facility] 03-22-2022 13:46-0400 Systolic blood pressure 146 mm[Hg] Nae Domínguez MOLD TECHNICIAN.ASSOCIATE EDITOR Work Phone: [facility] 03-15-2022 11:19-0400 Body height 187.96 cm [facility] Work Phone: 03-15-2022 11:19-0400 Body mass index (BMI) [Ratio] 43.4 kg/m2 [facility] Work Phone: 03-15-2022 11:19-0400 Body temperature 97.9 [degF] [place] Work Phone: 03-15-2022 11:19-0400 Body weight 153.31 kg [facility] Work Phone: 03-15-2022 11:19-0400 Diastolic blood pressure 96 mm[Hg] [facility] Work Phone: 03-15-2022 11:19-0400 Heart rate 89 /min [facility] Work Phone: 03-15-2022 11:19-0400 Respiratory rate 18 /min [place] Work Phone: 03-15-2022 11:19-0400 SaO2% (BldA) [Mass fraction] 98 % [facility] Work Phone: 03-15-2022 11:19-0400 Systolic blood pressure 148 mm[Hg] [facility] Work Phone: 03-15-2022 11:00-0400 Body temperature 97.5 [degF] Adriana Gutierres MOLD TECHNICIAN.ASSOCIATE EDITOR Work Phone: [facility] 03-15-2022 11:00-0400 Body weight 153.77 kg Adriana Gutierres MOLD TECHNICIAN.ASSOCIATE EDITOR Work Phone: [facility] 03-15-2022 11:00-0400 Diastolic blood pressure 82 mm[Hg] Adriana Gutierres MOLD TECHNICIAN.ASSOCIATE EDITOR Work Phone: [facility] 03-15-2022 11:00-0400 Heart rate 94 /min Adriana Gutierres MOLD TECHNICIAN.ASSOCIATE EDITOR Work Phone: [facility] 03-15-2022 11:00-0400 Respiratory rate 16 /min Adriana Gutierres MOLD TECHNICIAN.ASSOCIATE EDITOR Work Phone: [facility] 03-15-2022 11:00-0400 SaO2% (BldA) [Mass fraction] 97 % Adriana Gutierres MOLD TECHNICIAN.ASSOCIATE EDITOR Work Phone: [facility] 03-15-2022 11:00-0400 Systolic blood pressure 128 mm[Hg] Adriana Gutierres MOLD TECHNICIAN.ASSOCIATE EDITOR Work Phone: [facility] 02-13-2022 19:51-0400 Body height 187.96 cm [facility] Work Phone: 02-13-2022 19:51-0400 Body mass index (BMI) [Ratio] 43.2 kg/m2 [facility] Work Phone: 02-13-2022 19:51-0400 Body temperature 94 [degF] [place] Work Phone: 02-13-2022 19:51-0400 Body weight 153 kg [facility] Work Phone: 02-13-2022 19:51-0400 Diastolic blood pressure 95 mm[Hg] [facility] Work Phone: 02-13-2022 19:51-0400 Heart rate 95 /min [facility] Work Phone: 02-13-2022 19:51-0400 Respiratory rate 16 /min [place] Work Phone: 02-13-2022 19:51-0400 SaO2% (BldA) [Mass fraction] 98 % [facility] Work Phone: 02-13-2022 19:51-0400 Systolic blood pressure 147 mm[Hg] [facility] Work Phone: 12-15-2021 12:02-0400 Body temperature 98.1 [degF] Caryl Green PA-C Work Phone: [facility] 12-15-2021 12:02-0400 Body weight 150.59 kg Caryl Green PA-C Work Phone: [facility] 12-15-2021 12:02-0400 Diastolic blood pressure 86 mm[Hg] Caryl Green PA-C Work Phone: [facility] 12-15-2021 12:02-0400 Heart rate 76 /min Caryl Green PA-C Work Phone: [facility] 12-15-2021 12:02-0400 Respiratory rate 18 /min Caryl Green PA-C Work Phone: [facility] 12-15-2021 12:02-0400 Systolic blood pressure 116 mm[Hg] Caryl Green PA-C Work Phone: [facility] Encounters Encounter Date Encounter Type Care Provider Facility Start: 02-09-2025 End: 02-09-2025 Emergency department patient visit Caryl LONGORIA Work Phone: -Emergency Department Work Phone: Start: 02-05-2025 End: 02-05-2025 Emergency department patient visit Caryl LONGORIA Work Phone: -Emergency Department Work Phone: Start: 02-05-2025 End: 02-05-[address] Jak Bates DO -Emergency Department Work Phone: Start: 02-05-2025 End: 02-05-2025 ambulatory Caryl Green Facility:[facility] Start: 02-01-2025 End: 2025 Emergency department patient visit Caryl LONGORIA Work Phone: -Emergency Department Work Phone: Start: 08-02-2024 End: 08-02-2024 ambulatory CLARENCE RODRIGUEZ Facility:[facility] Start: 08-02-2024 End: 08-02-2024 Patient encounter procedure Clarence Rodriguez MD Work Phone: [facility] Comment on above: Tonsillitis (Primary Dx); Pharyngitis, unspecified etiology Start: 07-08-2024 End: 07-08-2024 ambulatory CLARENCE RODRIGUEZ Facility:[facility] Start: 07-08-2024 End: 07-08-2024 Office outpatient visit 25 minutes Clarence Giles APRN.ASSOCIATE EDITOR Work Phone: [facility] Comment on above: Sore throat (Primary Dx); Strep pharyngitis Start: 05-29-2024 End: 05-29-2024 ambulatory CLARENCE RODRIGUEZ Facility:[facility] Start: 05-29-2024 End: 05-29-2024 Patient encounter procedure Case Garrett MOLD TECHNICIAN.ASSOCIATE EDITOR Work Phone: [facility] Comment on above: Sore throat (Primary Dx); Acute otitis media, right Start: 11-13-2023 End: 11-13-2023 Emergency department patient visit [facility]gency Department Work Phone: Start: 11-13-2023 End: 11-13-2023 ambulatory CLARENCE RODRIGUEZ Facility:[facility] Start: 11-13-2023 End: 11-13-2023 Patient encounter procedure Zuleyma TongMarleen LOZANO.ASSOCIATE EDITOR Work Phone: [facility] Comment on above: Exposure to blood (P rimary Dx) Start: 08-09-2023 End: 08-09-2023 ambulatory CLARENCE RODRIGUEZ Facility:[facility] Start: 05-31-2023 End: 05-31-2023 Patient encounter procedure Clarence Rodriguez MD Work Phone: [facility] [place] Comment on above: GERD without esophag itis (Primary Dx); Encounter for immunization Start: 05-19-2023 Non-patient / Non-visit PA Ran LONGORIA Work Phone: [facility] Start: 05-19-2023 End: 05-19-2023 ambulatory SWATI LONGORIA Work Phone: [facility] Work Phone: Start: 05-19-2023 End: 05-19-2023 Patient encounter procedure SWATI LONGORIA Work Phone: [facility]Cardi[facility] Services Work Phone: Start: 05-03-2023 ambulatory Clarence miller MD Work Phone: [facility] Comment on above: Wait time Start: 04-20-2023 End: 04-20-2023 Patient encounter procedure Clarence Rodriguez MD Work Phone: [facility] Comment on above: Atypical chest pain (Primary Dx); GERD without esophagitis; Family history of early CAD Start: 04-05-2023 ambulatory Clarence miller MD Work Phone: [facility] [place] Comment on above: Stomach meds Start: 03-04-2023 End: 03-04-2023 Subsequent hospital visit by physician Mo[facility] Work Phone: Radiology Comment on above: Rib pain on left cristóbal e [R07.81] Start: 03-04-2023 End: 03-04-2023 Patient encounter procedure Uma Jimenez APRN.ASSOCIATE EDITOR Work Phone: [facility] Comment on above: Rib pain on left cristóbal e (Primary Dx) Start: 03-03-2023 Telephone encounter Caryl mendoza PA-C Work Phone: [facility] [place] Comment on above: Results Start: 03-01-2023 End: 03-01-2023 Patient encounter procedure Clarence Rodriguez MD Work Phone: [facility] Comment on above: Well adult exam (Jackie jenny Dx); LOCKHART (nonalcoholic steatohepatitis); SANJAY (generalized anxiety disorder); Panic attack; Screening for diabetes mellitus; Elevated LFTs; GERD without esophagitis; Heat intolerance; Candidiasis Start: 03-01-2023 End: 03-01-2023 Patient encounter status Clarence Rodriguez MD Work Phone: [facility] Work Phone: Start: 01-05-2023 Refill Tayler hussein MOLD TECHNICIAN.ASSOCIATE EDITOR Work Phone: Psychiatry Comment on above: Refill Request Start: 12-21-2022 Telephone encounter Caryl mendoza PA-C Work Phone: [facility] [place] Comment on above: Results Start: 12-20-2022 End: 12-20-2022 Subsequent hospital visit by physician [facility] Work Phone: Radiology Comment on above: Elevated LFTs [R79.8 9] Start: 11-02-2022 Refill Tayler hussein MOLD TECHNICIAN.ASSOCIATE EDITOR Work Phone: Psychiatry Comment on above: Refill Request Start: 10-19-2022 End: 10-19-2022 Patient encounter procedure Josselyn Hay MOLD TECHNICIAN.ASSOCIATE EDITOR Work Phone: [facility] Comment on above: Sorethroat (Primary Dx) Start: 09-09-2022 End: 09-09-2022 [facility] Tayler Gonsalez MOLD TECHNICIAN.ASSOCIATE EDITOR Work Phone: Psychiatry Comment on above: Panic disorder witho ut agoraphobia (Primary Dx) Start: 08-04-2022 Refill Tayler hussein MOLD TECHNICIAN.ASSOCIATE EDITOR Work Phone: Psychiatry Comment on above: Refill Request Start: 07-15-2022 End: 07-15-2022 [facility] Tayler Gonsalez MOLD TECHNICIAN.ASSOCIATE EDITOR Work Phone: Psychiatry Comment on above: Panic disorder witho ut agoraphobia (Primary Dx) Start: 06-24-2022 Refill Tayler hussein MOLD TECHNICIAN.ASSOCIATE EDITOR Work Phone: Psychiatry Comment on above: Refill Request Start: 05-10-2022 ambulatory Anuel Mckenna MD Work Phone: Orthopaedics Comment on above: Question regarding M RI SHOULDER WO IVCON LT Start: 05-09-2022 End: 05-09-2022 Subsequent hospital visit by physician Mri [facility] (I-Stat/1.5t) Work Phone: Radiology Comment on above: Acute pain of left s houlder [M25.512] Start: 04-28-2022 End: 04-28-2022 Subsequent hospital visit by physician Xr [facility] Work Phone: Radiology Comment on above: Acute pain of left s houlder [M25.512] Start: 04-28-2022 End: 04-28-2022 Patient encounter procedure Anuel Mckenna MD Work Phone: Orthopaedics Comment on above: Acute pain of left s houlder (Primary Dx); Traumatic complete tear of left rotator cuff, initial encounter Start: 04-08-2022 Telephone encounter Nae berger APRN.ASSOCIATE EDITOR Work Phone: [facility] [place] Comment on above: Orders Start: 04-07-2022 End: 04-07-2022 ambulatory Cesar Callaway [facility] Comment on above: Acute pain of left s houlder Start: 03-29-2022 ambulatory Nae Domínguez APRN.ASSOCIATE EDITOR Work Phone: [facility] [place] Comment on above: Physical therapy Start: 03-25-2022 Telephone encounter Nae berger APRN.ASSOCIATE EDITOR Work Phone: [facility] [place] Comment on above: Results Start: 03-23-2022 ambulatory Nae Domínguez MOLD TECHNICIAN.ASSOCIATE EDITOR Work Phone: [facility] Comment on above: Pain relief Start: 03-22-2022 End: 03-22-2022 ambulatory [facility] Work Phone: Start: 03-22-2022 End: 03-22-2022 Patient encounter procedure [facility]-Cat Scan, [facility] Start: 03-22-2022 Telephone encounter Nea berger MOLD TECHNICIAN.ASSOCIATE EDITOR Work Phone: [facility] Comment on above: Results Start: 03-22-2022 End: 03-22-2022 Office outpatient visit 25 minutes Nae Domínguez MOLD TECHNICIAN.ASSOCIATE EDITOR Work Phone: [facility] Comment on above: Flank pain (Primary Dx); Acute cystitis with hematuria; Acute pain of left shoulder Start: 03-15-2022 End: 03-15-2022 [facility] Start: 03-15-2022 End: 03-15-2022 Patient encounter procedure Adriana Gutierres MOLD TECHNICIAN.ASSOCIATE EDITOR Work Phone: [facility] Comment on above: Injury of head, init ial encounter (Primary Dx); Accident caused by farm tractor, initial encounter Start: 02-21-2022 End: 02-21-2022 [facility] Tayler Gonsalez MOLD TECHNICIAN.ASSOCIATE EDITOR Work Phone: Psychiatry Comment on above: Panic disorder witho ut agoraphobia (Primary Dx) Start: 02-13-2022 End: 02-13-2022 Emergency department patient visit [facility]Emergency Department Start: 01-21-2022 End: 01-21-2022 Patient encounter procedure Grey Filippo QUALITY AUDIT REPRESENTATIVE Work Phone: Psychology Comment on above: Severe anxiety (Prim sabrina Dx); Mild depression Start: 01-10-2022 Telephone encounter Grey Na ll QUALITY AUDIT REPRESENTATIVE Work Phone: Psychology Comment on above: Consult ([facility] Juan Ramon badillo) Start: 12-30-2021 Telephone encounter Grey Na ll QUALITY AUDIT REPRESENTATIVE Work Phone: Psychology Comment on above: Consult ([facility] C alling) Start: 12-28-2021 Telephone encounter Grey workman QUALITY AUDIT REPRESENTATIVE Work Phone: Psychology Comment on above: Consult ([facility] Pt Out reach F/U) Start: 12-27-2021 Telephone encounter Grey workman QUALITY AUDIT REPRESENTATIVE Work Phone: Psychology Comment on above: Consult ([facility] Pt Out reach F/U) Start: 12-23-2021 Telephone encounter Clarence Rodriguez MD Work Phone: [facility] [place] Comment on above: Patient Question Start: 12-22-2021 Telephone encounter Grey workman QUALITY AUDIT REPRESENTATIVE Work Phone: Psychology Comment on above: Consult (Initial [facility] W Pt Outreach) Start: 12-21-2021 Telephone encounter Clarence Rodriguez MD Work Phone: [facility] [place] Comment on above: Patient Update; Medi cation Problem Patient Update Start: 12-15-2021 End: 12-15-2021 Patient encounter procedure Caryl Green PA-C Work Phone: Family [facility] [place] Comment on above: SANJAY (generalized anx iety disorder) (Primary Dx); Panic attack; Seasonal allergic rhinitis, unspecified trigger Start: 12-10-2021 Telephone encounter Caryl mendoza PA-C Work Phone: [facility] [place] Comment on above: Medication Question Start: 12-02-2021 Refill Clarence miller MD Work Phone: [facility] [place] Comment on above: Refill Request Refill Start: 03-19-2021 Patient encounter status Clarence Rodriguez MD Work Phone: [facility] Work Phone: Procedures Date Procedure Procedure Detail Performing Clinician Start: 07-08-2024 STREP A MOLECULAR (POC) Onel Chambers MD Work Phone: Start: 05-29-2024 STREP A MOLECULAR (POC) Adriana Gutierres MOLD TECHNICIAN.ASSOCIATE EDITOR Work Phone: Start: 05-31-2023 INFLUENZA VACCINE, A GE 6 MO - 64 YR, QUADRIVALENT (AFLURIA, FLULAVAL, FLUZONE) Clarence Rodriguez MD Work Phone: Start: 03-04-2023 Radex ribs uni w/pos teroant ch minimum 3 views Uma Jimenez MOLD TECHNICIAN.ASSOCIATE EDITOR Work Phone: Start: 12-20-2022 Us abdominal real [...] et rgnt auto w/o microscopy Nae Domínguez MOLD TECHNICIAN.ASSOCIATE EDITOR Work Phone: Start: 03-15-2022 X-ray of chest posteroanterior view Start: 03-15-2022 Plain X-ray of shoulder Start: 02-13-2022 Plain x-ray of hand Plan of Treatment Date Care Activity Detail Author Start: 02-14-2032 Urine microalbumin profile DTaP,Tdap,Td Vaccine (10 - Td or Tdap) [facility] Start: 01-04-2031 Urine microalbumin profile [facility] Start: 2025 [facility] Start: 03-24-2024 Covid-19 Vaccine ( season) Covid-19 Vaccine ( season) [facility] Start: 03-24-2024 Covid-19 Vaccine ( season) Covid-19 Vaccine ( season) [facility] Start: 03-24-2024 Influenza vaccination Influenza Vacc ine (#1) [facility] Start: 12-13-2023 COVID-19 VACCINE (#1) COVID-19 VACCI NE (#1) [facility] Comment on above: Postponed from 08/05 (Declined at this time) Start: 11-13-2023 [facility] Start: 11-13-2023 Hepatitis B surface antigen measurement [facility] Start: 11-13-2023 Hepatitis C antibody measurement [facility] Start: 07-24-2023 Behavioral Health Screening Behavioral Health Screening [facility] Start: 07-23-2023 DEPRESSION ASSESSMENT DEPRESSION ASS [facility] Comment on above: Postponed from 07/24 (Declined at this time) Start: 03-24-2023 Covid-19 Vaccine () Covid-19 Vaccine () [facility] Start: 03-24-2023 Influenza vaccination [facility] Start: 12-21-2022 End: 02-20-2023 LIPID PANEL, NONFASTING LIPID PANEL, NONFASTING Lab Routine Fatty liver Encounter for lipid screening for cardiovascular disease Expected: 12/21/2022, Expires: 02/20/2023 [facility] Work Phone: Comment on above: Expected: 12/21/2022 , Expires: 02/20/2023 Start: 07-24-2022 [facility] Start: 03-24-2022 Influenza vaccination [facility] Start: 03-22-2022 End: 05-22-2022 CBC W Auto Differential panel - Blood CBC + DIFF Lab STAT Flank pain Expected: 03/22/2022, Expires: 05/22/2022 [facility] Work Phone: Comment on above: Expected: 03/22/2022 , Expires: 05/22/2022 Start: 03-22-2022 End: 05-22-2022 Comprehensive metabolic 2000 panel - Serum or Plasma COMP METABOLIC PANEL Lab STAT Flank pain Expected: 03/22/2022, Expires: 05/22/2022 [facility] Work Phone: Comment on above: Expected: 03/22/2022 , Expires: 05/22/2022 Start: 01-04-2022 COVID-19 VACCINE (#1) COVID-19 VACCI NE (#1) [facility] Comment on above: Postponed from 02/02 (Declined at this time) Start: 01-04-2022 HEPATITIS C SCREENING HEPATITIS C [facility] Comment on above: Postponed from 02/02 (Declined at this time) Start: 07-24-2021 DEPRESSION ASSESSMENT DEPRESSION ASS ESSMENT [facility] Start: 2013 Depression Screening Depression Scre ening [facility] Start: 2013 HEPATITIS C SCREENING HEPATITIS C [facility] Start: 2009 PEDS TO ADULT TRANSITION ANNUAL ASSESSMENT PEDS TO ADULT TRANSITION ANNUAL ASSESSMENT [facility] Start: 2007 PEDS TO ADULT TRANSITION INITIAL DISCUSSION PEDS TO ADULT TRANSITION INITIAL DISCUSSION [facility] Start: 2006 HPV VACCINE (1 - Mal e 2-dose series) HPV VACCINE (1 - Male 2-dose series) [facility] Start: 02-03-2000 COVID-19 VACCINE (#1) COVID-19 VACCI NE (#1) [facility] Start: 1995 COVID-19 VACCINE (#1) COVID-19 VACCI NE (#1) [facility] Bacteria identified in Urine by Culture URINE CULTURE Microbiology Routine Flank pain 03/22/2022 2:36 PM EDT [facility] Work Phone: End: 04-21-2023 Ct abdomen & pelvis w/o contrast material CT ABD/PEL WO IVCON Radiology STAT Flank pain 1 Occurrences starting 03/22/2022 until 04/21/2023 [facility] Work Phone: Comment on above: 1 Occurrences starti ng 03/22/2022 until 04/21/2023 End: 04-20-2024 ECG COMPLETE ECG COMPLETE ECG Routine Atypical chest pain 1 Occurrences starting 04/20/2023 until 04/20/2024 [facility] Work Phone: Comment on above: 1 Occurrences starti ng 04/20/2023 until 04/20/2024 End: 04-20-2024 EXERCISE STRESS ECG (WITHOUT IMAGING) EXERCISE STRESS ECG (WITHOUT IMAGING) Cardiology Routine Atypical chest pain Family history of early CAD 1 Occurrences starting 04/20/2023 until 04/20/2024 [facility] Work Phone: Comment on above: 1 Occurrences starti ng 04/20/2023 until 04/20/2024 Hepatitis B virus surface IgG Ab [Presence] in Serum [facility] HIV 1+2 Ab+HIV1 p24 Ag [Presence] in Serum or Plasma by Immunoassay [facility] Patient Education [facility] Work Phone: Patient referral [facility] Work Phone: Urinalysis complete panel - Urine URINALYSIS, WITH MICROSCOPIC Lab Routine Flank pain 03/22/2022 2:36 PM EDT [facility] Work Phone: XR SHOULDER GENERAL 3V OR MORE AP/TRUE AP/OTHER LEFT XR SHOULDER GENERAL 3V OR MORE AP/TRUE AP/OTHER LEFT Radiology Routine Acute pain of left shoulder 04/28/2022 11:45 AM EDT [facility] Work Phone: [facility] Immunizations Immunization Date Immunization Notes Care Provider [facility] 02-09-2025 rabies vaccine, for intramuscular injection Caryl LONGORIA Work Phone: [facility] 02-05-2025 rabies vaccine, for intramuscular injection Caryl LONGORIA Work Phone: [facility] 2025 rabies immune globulin Patricia LONGORIA Work Phone: [facility] 2025 rabies vaccine, for intramuscular injection Caryl LONGORIA Work Phone: [facility] 2025 tetanus toxoid, redu yanira diphtheria toxoid, and acellular pertussis vaccine, adsorbed Caryl LONGORIA Work Phone: [facility] 05-31-2023 influenza, injectabl e, quadrivalent, contains preservative Clarence Rodriguez MD Work Phone: [facility] 05-31-2023 influenza virus vacc ine, unspecified formulation Xr [place] Work Phone: [facility] 02-13-2022 tetanus toxoid, redu yanira diphtheria toxoid, and acellular pertussis vaccine, adsorbed [facility] 01-04-2021 tetanus toxoid, redu yanira diphtheria toxoid, and acellular pertussis vaccine, adsorbed Clarence Rodriguez MD Work Phone: [facility] 06-14-2019 influenza virus vacc ine, unspecified formulation Clarence Rodriguez MD Work Phone: [facility] 05-24-2019 Influenza virus vaccine [facility] 05-14-2016 tetanus toxoid, redu yanira diphtheria toxoid, and acellular pertussis vaccine, adsorbed Clarence Rodriguez MD Work Phone: [facility] 01-31-2011 hepatitis A vaccine, unspecified formulation Clarence Rodriguez MD Work Phone: [facility] Work Phone: 02-18-2009 hepatitis A vaccine, unspecified formulation Clarence Rodriguez MD Work Phone: [facility] Work Phone: 02-18-2009 Meningococcal, MCV4, unspecified conjugate formulation(groups A, C, Y and W-135) Clarence Rodriguez MD Work Phone: [facility] Work Phone: 02-21-2006 tetanus toxoid, redu yanira diphtheria toxoid, and acellular pertussis vaccine, adsorbed Clarence Rodriguez MD Work Phone: [facility] Work Phone: 07-04-2003 influenza virus vacc ine, unspecified formulation Clarence Rodriguez MD Work Phone: [facility] Work Phone: 03-03-2000 diphtheria, tetanus toxoids and acellular pertussis vaccine Clarence Rodriguez MD Work Phone: [facility] Work Phone: 03-03-2000 measles, mumps and rubella virus vaccine Clarence Rodriguez MD Work Phone: [facility] Work Phone: 03-03-2000 poliovirus vaccine, inactivated Clarence Rodriguez MD Work Phone: [facility] Work Phone: 07-24-1997 Chicken Pox (disease) Alex Rodriguez MD Work Phone: [facility] Work Phone: 05-07-1996 diphtheria, tetanus toxoids and acellular pertussis vaccine Clarence Rodriguez MD Work Phone: [facility] Work Phone: 05-07-1996 haemophilus influenz ae type b vaccine, HbOC conjugate Clarence Rodriguez MD Work Phone: [facility] Work Phone: 02-28-1996 measles, mumps and rubella virus vaccine Clarence Rodriguez MD Work Phone: [facility] Work Phone: 1995 diphtheria, tetanus toxoids and acellular pertussis vaccine Clarence Rodriguez MD Work Phone: [facility] Work Phone: 1995 haemophilus influenz ae type b vaccine, HbOC conjugate Clarence Rodriguez MD Work Phone: [facility] Work Phone: 1995 hepatitis B vaccine, pediatric or pediatric/adolescent dosage Clarence Rodriguez MD Work Phone: [facility] Work Phone: 1995 trivalent poliovirus vaccine, live, oral Clarence Rodriguez MD Work Phone: [facility] Work Phone: 1995 diphtheria, tetanus toxoids and acellular pertussis vaccine Clarence Rodriguez MD Work Phone: [facility] Work Phone: 1995 haemophilus influenz ae type b vaccine, HbOC conjugate Clarence Rodriguez MD Work Phone: [facility] Work Phone: 1995 trivalent poliovirus vaccine, live, oral Clarence Rodriguez MD Work Phone: [facility] Work Phone: 1995 diphtheria, tetanus toxoids and acellular pertussis vaccine Clarence Rodriguez MD Work Phone: [facility] Work Phone: 1995 haemophilus influenz ae type b vaccine, HbOC conjugate Clarence Rodriguez MD Work Phone: [facility] Work Phone: 1995 hepatitis B vaccine, pediatric or pediatric/adolescent dosage Clarence Rodriguez MD Work Phone: [facility] Work Phone: 1995 trivalent poliovirus vaccine, live, oral Clarence Rodriguez MD Work Phone: [facility] Work Phone: 1995 hepatitis B vaccine, pediatric or pediatric/adolescent dosage Clarence Rodriguez MD Work Phone: [facility] Work Phone: Payers Date Payer Category Payer Self-pay [id number] 2022 Unknown [id number] 2021 Unknown [id number] 2021 Unknown [id number] 2016 Medicaid [id number] Private Health Insurance [id number] Unknown [id number] Social History Date Type Detail Facility Start: 02-24-2011 End: 02-01-2025 Tobacco smoking status NHIS Never smoked tobacco [facility] Start: 08-12-2021 End: 08-02-2024 Alcohol intake Current non-drinker of alcohol (finding) [facility] Start: 09-16-2019 End: 12-12-2022 History SDOH Alcohol Frequency 1 [facility] Start: 09-16-2019 End: 12-12-2022 History SDOH Alcohol Std Drinks 98 [facility] Start: 07-25-2019 End: 12-12-2022 History SDOH Social Connections Phone 5 [facility] Start: 07-25-2019 End: 12-12-2022 History SDOH Social Connections Membership 2 [facility] Start: 07-25-2019 End: 12-12-2022 History SDOH Social Connections Living 3 [facility] Start: 07-25-2019 End: 12-12-2022 History SDOH Physical Activity MPS 6 [facility] Start: 07-25-2019 Education 12 [facility] Start: 1995 Sex Assigned At Male [facility] Start: 12-05-2021 End: 05-26-2022 Exposure to SARS-CoV-2 (event) Not sure [facility] Start: 02-13-2022 End: 11-13-2023 Tobacco smoking status INIS Unknown if ever smoked [facility] Start: 07-18-2019 None [facility] Start: 07-18-2019 Spouse/ Significant Other;With Family [facility] Start: 11-24-2020 Chew [facility] Start: 02-24-2011 End: 03-22-2022 Tobacco use and exposure Smokeless tobacco non-user [facility] Start: 04-28-2022 Tobacco use and exposure User of smokeless tobacco [facility] Start: 12-12-2022 History SDOH Alcohol Std Drinks 0 [facility] Start: 03-01-2023 Tobacco use and exposure Former smokeless tobacco user [facility] Work Phone: End: 02-20-2023 History of tobacco use Chews Tobacco [facility] Work Phone: Start: 12-11-2022 End: 08-02-2024 History of Social function [facility] Start: 12-11-2022 End: 08-02-2024 Social connection and isolation panel [facility] Do you belong to any clubs or organizations such as mosque groups, unions, fraternal or athletic groups, or school groups? No [facility] How often do you att end meetings of the clubs or organizations you belong to? Patient refused [facility] Are you now , , , , never or living with a partner? [facility] How often to you hav e a drink containing alcohol? Never [facility] Do you feel stress - tense, restless, nervous, or anxious, or unable to sleep at night because your mind is troubled all the time - these days [OSQ] Very much [facility] (I/We) worried whebarbara er (my/our) food would run out before (I/we) got money to buy more. Never true [facility] Start: 12-18-2020 Gender identity Identifies as male gender (finding) [facility] Start: 12-18-2020 Sexual orientation Heterosexual (finding) [facility] Clinical Notes 08-16-2019 to 08-02-2024 Clarence Rodriguez MD - 08/02/2024 10:23 AM Clarence Santillan APRN.ASSOCIATE EDITOR - 07/08/2024 7:54 AM Case Jean Baptiste APRN.ASSOCIATE EDITOR - 05/29/2024 2:57 PM Clarence Hernandez MD - 05/31/2023 5:56 PM EST Note Date & Type Note Facility 08-02-2024 Note HNO ID: [id number] Author: CLARENCE RODRIGUEZ MD Service: ? Author [...] Relation Age of Onset Heart Maternal Grandfather [place] Hypertension Mother None Father Heart Maternal Uncle [...] to ENT for tonsillectomy. Clarence Rodriguez MD [facility] 08-02-2024 History of Presen t illness Narrative [...] Relation Age of Onset Heart Maternal Grandfather [place] Hypertension Mother None Father Heart Maternal Uncle [...] Clarence Rodriguez MD documented in this encounter [facility] 07-08-2024 Note HNO ID: [id number] Author: CLARENCE GILES APRN.ASSOCIATE EDITOR Service: ? Author Type: Nurse Practitioner Type: [...] Relation Age of Onset Heart Maternal Grandfather [place] Hypertension Mother None Father Heart Maternal Uncle [...] amoxicillin. Patient was (more content not included)... [facility] 07-08-2024 History of Presen t illness Narrative [...] Relation Age of Onset Heart Maternal Grandfather [place] Hypertension Mother None Father Heart Maternal Uncle [...] of care. This note was generated using XING software. It may contain errors in wording, punctuation, or spelling. Clarence Giles APRN.VINITA documented in this encounter [facility] 05-29-2024 Note HNO ID: [id number] Author: CASE GARRETT APRN.VINITA Service: ? Author Type: Nurse Practitioner Type: Progress Notes Filed: 05/29/2024 15:04 Note Text: This note was created using [employer]. Subjective Aldair Yepez is a 29 year [...] antibiotics. - AMOXICILLIN 875 MG TABLET Case Garrett, BLAKE.[facility] 05-29-2024 History of Presen t illness Narrative This note was created using [employer]. Subjective Aldair Yepez is a 29 year [...] Case Garrett APRN.VINITA documented in this encounter [facility] 11-13-2023 Note HNO ID: [id number] Author: ZULEYMA ALDANA APRN.ASSOCIATE EDITOR Service: ? Author Type: Nurse Practitioner Type: [...] Relation Age of Onset Heart Maternal Grandfather [place] Hypertension Mother None Father Heart Maternal Uncle [...] go to ER as advised. Zuleyma Aldana APRN.[facility] 11-13-2023 History of Presen t [...] Relation Age of Onset Heart Maternal Grandfather [place] Hypertension Mother None Father Heart Maternal Uncle [...] go to ER as advised. Zuleyma Aldana APRN.ASSOCIATE EDITOR documented in this encounter [facility] 08-09-2023 Note HNO ID: [id number] Author: CLARENCE RODRIGUEZ MD Service: ? Author [...] and a maternal grandfather who of a [place] in either his 40-50's. Past medical history, [...] Relation Age of Onset Heart Maternal Grandfather [place] Hypertension Mother None Father Heart Maternal Uncle [...] Tdap) due on (more content not included)... [facility] 05-31-2023 History of Presen t illness Narrative [...] and a maternal grandfather who of a [place] in either his 40-50's. Patient does not [...] Relation Age of Onset Heart Maternal Grandfather [place] Hypertension Mother None Father Heart Maternal Uncle [...] Clarence Rodriguez MD documented in this encounter [facility] 05-05-2023 Miscellaneous Notes Order was faxed by isma and put into filing cabinet Patient notified and given scheduling number for [facility] if not contacted Appointment was made for 4 weeks Karen Novak Ma Form ready to be faxed. Let patient know we are sending order for stress to [facility]. Patient needs a f/u visit for GERD in about 4 weeks Form completed and given to provider. And referral placed Patricia Carpenter MA Isma can we fax an order over to [facility] to do a treadmill stress test. Dx: R07.89 and Z82.49 Patient needs a f/u visit for GERD in about [address] Rodriguez: No future stress test or 3-4 week f/u for GERD/chest pain scheduled in at this time. Wilda Burgess MA documented in this encounter [facility] 04-20-2023 History of Presen t illness [...] and a maternal grandfather who of a [place] in either his 40-50's. Patient does not [...] Relation Age of Onset Heart Maternal Grandfather [place] Hypertension Mother None Father Heart Maternal Uncle [...] Clarence Rodriguez MD documented in this encounter [facility] 04-12-2023 Miscellaneous Notes Pt has appointment scheduled with Caryl 04/20/23. Vika Hernandez LPN Attempted to schedule pt for office visit but was unable to do so d/t insurance (reached [facility]). Pt advised to contact office to speak with scheduling for appt. Michael Hernandez LPN Patient will need seen in office. documented in this encounter [facility] 03-04-2023 History of Presen t illness [...] 2023 10:02 AM documented in this encounter [facility] 03-04-2023 History of Presen t illness Narrative Images from the original note were not included. Subjective The history is provided by the patient. No speech language pathologist prn was used. HPI Aldair Yepez is a [...] have confirmed and edited as necessary, the [facility] Review of Systems Constitutional: Negative for [...] detail warranting prompt ER evaluation. Uma Jimenez APRN.ASSOCIATE EDITOR documented in this encounter [facility] 03-03-2023 Miscellaneous Notes Patient notified of results and provider's instructions. Patient verbalizes understanding. Vika Hernandez LPN Let patient know that overall labs look okay/stable. Keep working on diet and weight loss to help with cholesterol and fatty liver. Caryl Green PA-C documented in this encounter [facility] 03-01-2023 Instructions Clarence Rodriguez MD - 03/01/2023 4:45 PM EDT Please get labs done on or after 08/18/2023 prior to your next visit. documented in this encounter [facility] 03-01-2023 History of Presen t illness [...] Relation Age of Onset Heart Maternal Grandfather [place] Hypertension Mother None Father Heart Maternal Uncle [...] Abs Lymph 1.00 - 4.00 k/uL 1.59 [place]% % 8.9 Abs [place] <0.87 k/uL 0.62 [place]% % 4.4 Abs [...] Clarence Rodriguez MD documented in this encounter [facility] 01-06-2023 Miscellaneous Notes Patient has been [...] Beth Murphy LPN documented in this encounter [facility] 12-21-2022 Miscellaneous Notes Spoke with patient. [...] Caryl Green PA-C documented in this encounter [facility] 12-20-2022 History of Presen t illness [...] 2022 11:04 AM documented in this encounter [facility] 11-03-2022 Miscellaneous Notes Patient has been [...] Beth Murphy LPN documented in this encounter [facility] 10-19-2022 History of Presen t illness [...] Relation Age of Onset Heart Maternal Grandfather [place] Hypertension Mother None Father Heart Maternal Uncle [...] Josselyn Hay APRN.CNP documented in this encounter [facility] 09-09-2022 Instructions Talyer Gonsalez APRN.CNP - 09/09/2022 3:59 PM EST [...] - Call the National Suicide Hotline at 7-718-MJNAMWU ( ) or 0-413-307-TALK (7231) - Text 3PMZG to 636709 Medication Update: Stop Paxil. Venlafaxine 150 mg XR - take 1 capsule once daily. Propranolol 40 mg - take 1 tablet up to twice daily as needed. Next appointment: --Schedule in 4 to 6 weeks or sooner if needed -- You may call the department appointment line at [phone] to schedule your appointment. -- Please call my nurse Mary Beth at [phone] or send me a message in Cash[employer] with any questions or concerns between appointments. documented in this encounter [facility] 09-09-2022 History of Presen t illness [...] which included preparing to see the patient, alri-te-zyod patient care, completing clinical documentation, and counseling and educating the patient/family/caregiver, ordering medications/labs. Tayler Gonsalez APRN.[facility] September 09, 2022 3:29 PM This note was partially generated using Dragon voice recognition system. Note was reviewed for accuracy. There may be minor misspellings or grammar miscues with Mundion voice recognition. documented in this encounter [facility] 08-05-2022 Miscellaneous Notes Patient notified and [...] advise. Thank you. documented in this encounter [facility] 07-15-2022 Instructions Tayler Gonsalez APRN.CNP - [...] - Call the National Suicide Hotline at 9-104-YDPXIJE ( ) or 5-670-894-TALK (1092) - Text 4HOPE to 393731 Medication Update: Starting today, decrease Paxil to [...] may call the department appointment line at [phone] to schedule your appointment. -- Please call my nurse Mary Beth at [phone] or send me a message in Cashually with any questions or concerns between appointments. documented in this encounter [facility] 07-15-2022 History of Presen t illness [...] panic attacks if he tries to leave [place]. Propranolol only helped for a short time [...] which included preparing to see the patient, [id number] patient care, completing clinical documentation, and counseling and educating the patient/family/caregiver, ordering medications/labs. Tayler Gonsalez APRN.CNP July 15, 2022 2:56 PM This note was partially generated using XING voice recognition system. Note was reviewed for accuracy. There may be minor misspellings or grammar miscues with Mundion voice recognition. documented in this encounter [facility] 06-24-2022 Miscellaneous Notes Patient's spouse requesting [...] Devi Gross RN documented in this encounter [facility] 05-09-2022 History of Presen t illness [...] 2022 11:44 AM documented in this encounter [facility] 04-28-2022 History of Presen t illness [...] 2022 11:36 AM documented in this encounter [facility] 04-28-2022 History of Presen t illness Narrative Anuel Mckenna MD Department of Orthopaedics Orthopaed[facility] [address] [facility] [address] Dept: [phone] Dept April 28, 2022 CHIEF COMPLAINT: New and Pain of the Left Shoulder HPI Patient here today for left shoulder pain x 1.5 months. He reports that he rolled a vice investigator. He was seen at [facility] after the injury. He was [...] age indeterminate fracture in the greater tuberosity. [facility] Transcribe Date/Time: Apr 29 2022 2:28P Dictated [...] Relation Age of Onset Heart Maternal Grandfather [place] Hypertension Mother None Father Heart Maternal Uncle [...] PHYSICIAN: Mr. Aldair Yepez was referred to la for consultation by the following physician. This consultation note will be sent to the following physician by either mail or electronic medical record. Anuel Mckenna [address] [facility] [address] Clarence Rodriguez MD [address] [facility] [address] Anuel Mckenna MD documented in this encounter [facility] 04-08-2022 Miscellaneous Notes Received a message from PT. Concerned about a significant rotator cuff tear. Referral placed for ortho. Encouraged to schedule back for follow-up. Nae Domínguez APRN.ASSOCIATE EDITOR documented in this encounter [facility] 04-07-2022 History of Presen t illness [...] further evaluation from primary care physician or orthopedic tech for further imaging and updated plan of care. Goals for Episode of Care: created on 04/07/22 through 05/07/22 [place] in home exercise program. Patient will decrease pain rating by 2 points to meet minimal clinical important difference for numeric pain rating scale. Perform ADL's with decreased report of symptoms/pain in 12 weeks. Perform work tasks and functions without pain. Planned Interventions, Frequency, and Duration: Current Frequency: 2x/week Duration: 4 weeks Total Number of Visits Planned: 8 Planned Treatment Interventions: Therapeutic exercise (78279);Neuromuscular re-education (83446);Manual therapy (21545);Therapeutic activities (37279);Self-mcfp management (33831) PLAN FOR NEXT VISIT: Pt to follow up with PCP or orthopedic tech Patient demonstrates good understanding of plan of care and treatment. The above goals and plan of care were discussed and agreed upon by patient/family. SUBJECTIVE: Aldair Yepez is a 27 year old male seen today for Pt presents approximately 3 weeks following a vice investigator accident in which the mower rolled and [...] Cesar Slaughter PT documented in this encounter [facility] 03-29-2022 Miscellaneous Notes Referral placed. Please help schedule. Nae Domínguez APRN.VINITA Ok to order PT for shoulder? Or do you want pt to come in again? documented in this encounter [facility] 03-29-2022 Miscellaneous Notes See MC message. [...] Nae Domínguez APRN.VINITA documented in this encounter [facility] 03-23-2022 Miscellaneous Notes Pt notified. He [...] pain medication is not helping. Was given Byers. Urine Cx in process. Nhi Rueda Ma documented in this encounter [facility] 03-23-2022 Miscellaneous Notes MC message's read by pt. See MC message. Michael Hernandez LPN MC message sent. Michael Hrenandez LPN In addition to the below note, [...] note were not included. Labs copied from [employer]ats: message to pt. Michael Hernandez LPN Can please let patient know that I received his CT results from [facility]. Thankfully, everything looked normal. He does [...] know when we receive that. Nae Domínguez APRN.CNP documented in this encounter [facility] 03-22-2022 History of Presen t illness Narrative This is a 27 year old male who presents today with: Patient presents with: ER F/U: [facility] ER follow up 03/15 dx: mower rolled over on him HISTORY OF PRESENT ILLNESS: Aldair Hwang Baljinder is a 27 year old male. Patient presents with: ER F/U: [facility] ER follow up 03/15 dx: [...] Relation Age of Onset Heart Maternal Grandfather [place] Hypertension Mother None Father Heart Maternal Uncle [...] APRN.VINITA This note was partially generated using XING voice recognition system. Note was reviewed for accuracy. There may be minor misspellings or grammar miscues with XING voice recognition. documented in this encounter [facility] 03-15-2022 History of Presen t illness Narrative 27 year old male presents with complaints of flipping vice investigator. 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 States that it tipped, He ultimately fell [...] ED Declines EMS. documented in this encounter [facility] 02-21-2022 Instructions Tayler Gonsalez APRN.CNP - [...] - Call the National Suicide Hotline at 6-668-INJWDLD ( ) or 5-400-913-TALK (0374) - Text 4HOPE to 413445 Medication Update: - Paxil 40 mg - [...] may call the department appointment line at [phone] to schedule your appointment. -- Please call my nurse Mar yBeth at [phone] or send me a message in Cashually with any questions or concerns between appointments. documented in this encounter [facility] 02-21-2022 History of Presen t illness [...] town or anything. HPI: Per Grey Barkley, [facility]'s note of 01/21/2022: Pt is a 26yr [...] anxiety when he is trying to leave [place]. When he starts to leave town, he [...] None Phobias: no irrational fears Memory: Good, director long term care. Okay short term. Anxiety: high when he [...] All other systems negative. Per Grey Barkley [facility]'s note of 01/21/2022: PSYCHIATRIC HISTORY: Prior Diagnosis: Anxiety Disorder Last Hospitalization: None Location of Hospitalization : N/A Reason for hospitalization/Length of Stay: N/A Psychiatrist/ ASSOCIATE EDITOR: seen by psychiatrist x1 at [facility], no meds prescribed Therapist: seeing counselor at [facility], x1 wkly Marketing And Promotions Manager: None Mental Health Agency/Practice: [facility] Did you the previous treatment helpful? Not helpful ECT: no Previous Discontinued Psychiatric Med Trials: See HPI Per Grey Barkley [facility]'s note of 01/21/2022: SUBSTANCE USE HISTORY: Nicotine: [...] N/A, No history of use or dependence Applier : N/A, No history of use or dependence Previous Treatments/ AA, NA, CA, etc.: denies Have you ever practiced sobriety: Not Applicable Are you interested in CD treatment? 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 denied any past legal history SPIRITUALITY/JUDAISM: Denominational FAMILY PSYCHIATRIC/SUBSTANCE USE HISTORY: Sister-Anxiety Disorder and [...] which included preparing to see the patient, [id number] patient care, completing clinical documentation, obtaining and/or reviewing separately obtained history, counseling and educating the patient/family/caregiver, ordering medications, tests, or procedures, communicating with other HCPs (not separately reported) and independently interpreting results (not separately reported). ADD ON PSYCHOTHERAPY CODE : No SIGNATURE: Tayler Gonsalez APRN.CNP PATIENT NAME: Aldair Yepez DATE: February 21, 2022 TIME: 8:20 AM PAGER : documented in this encounter [facility] 01-21-2022 History of Presen t illness Narrative Behavioral Health Social Work Assessment Patient was seen for an initial evaluation. All information is from patient report except when noted. This evaluation is NOT intended for forensic, disability, or child custody purposes. Informed consent was discussed and signed by the patient. -Pt was sent Zyrra with consent for tx -Pt read Technisysg, agreed [facility] Assessment: Virtual *Pt lost connection after 40 minutes -unable to reconnect -completed assessment via phone Pt location: In [facility] location: [facility] PRESENT: Self Patient identified for [facility] from: PCP (Caryl Green, Chu) Reason for referral: [facility] Assessment (failed mental health tx, SANJAY,panic) [facility] encounter type: Virtual Visit Attempts to Outreach: [...] to cont with current counselor -will inform [facility] of his decision Medical History: PAST MEDICAL [...] OF EDUCATION: High School Diploma 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 denied any past legal history SPIRITUALITY/JUDAISM: Denominational [facility]: Patient was born and raised in [place], patient is the middle of 3 [...] Reason for hospitalization/Length of Stay: N/A Psychiatrist/ ASSOCIATE EDITOR: seen by psychiatrist x1 at [facility], no meds prescribed Therapist: seeing counselor at [facility], x1 wkly Marketing And Promotions Manager: None Mental Health Agency/Practice: [facility] Did [...] N/A, No history of use or dependence Applier : N/A, No history of use or [...] and 8 0 (none) to 10 (worst) [id number] Mood: positive for the most part Affect: [...] anxiety, leaving town -seeing counselor from [facility] wkly, not helpful -saw psychiatrist x1 from [facility], no meds prescribed -interested in seeing psych audio/video technician Plan: -Pt was scheduled with Tayler Gonsalez [...] to cont with current counselor -will inform [facility] of his decision [facility] will send Pt Mary Beth's number, to contact her once financially cleared DIAGNOSIS: PRIMARY: 1: Anxiety Disorder severe Other: Depressive D/O mild RESOURCES PROVIDED: Internal: psychiatry External- has counselor at [facility], seen x1 wkly OTHER- N/A In case of a mental health emergency, contact Crisis line [phone] or report to your closest ER. MANSOOR De La Vega documented in this encounter [facility] 01-10-2022 Miscellaneous Notes Behavioral Health Social Work Progress Note Patient identified for [facility] from: PCP (Chu Zhao) Reason for referral: [facility] Assessment (failed mental health tx, SANJAY,panic) [facility] encounter type: Telephone Encounter Attempts to Outreach: [...] appt -wants to have Pt see psych audio/video technician without having to see [facility] -anxiety is getting worse [facility] sent msg to psych audio/video technician -her 1st available is mid to last January and was advised for Pt to keep bh assessment [facility] contacted Pt's -informed her needs to keep bh assessment - requested to sched psych audio/video technician appt now -informed Pt will still need to keep bh assessment - agreed [facility] sent msg to psych audio/video technician -Pt is allowed to sched psych audio/video technician prior to completing bh assessment -if does not complete bh assessment psych audio/video technician appt will automatically be cancelled -contacted INOCENTE Clinton, to contact to sched with Tayler Gonsalez CNP -she agreed to contact [facility] contacted Pt's and informed of the above -she agreed [facility] pointed out due to needing financial clearance of each visit the appt may not be able to be scheduled MANSOOR De La Vega January 10, 2022 documented in this encounter [facility] 12-30-2021 Miscellaneous Notes Behavioral Health Social Work Progress Note Patient identified for [facility] from: PCP (Chu Zhao) Reason for referral: [facility] Assessment (failed mental health tx, ASNJAY,panic) [facility] encounter type: Telephone Encounter Attempts to Outreach: 6 attempts Final Disposition: Resources given (12-30-21 informed needs to contact Classting dept, [employer] company to find covered network provider, gave shavonne 419) Patient Discharged?: Yes Patient reported that [...] tx his anxiety -offered following resource: Shavonne [facility] [address] [place] [address] [facility] requested inform [facility] if she is able to get financial clearance or schedules an appt elsewhere. No further contact is indicated at this time MANSOOR De La Vega December 30, 2021 documented in this encounter [facility] 12-28-2021 Miscellaneous Notes Behavioral Health Social Work Progress Note Patient identified for [facility] from: PCP (Chu Zhao) Reason for referral: [facility] Assessment (failed mental health tx, SANJAY,panic) [facility] encounter type: Telephone Encounter Attempts to Outreach: 4 attempts Final Disposition: Other (12-28-21 Informed , unable to sched appt due to insurance out of network) Patient Discharged?: Yes Patient reported that caregiver was able to meet their needs today?: N/A [facility] received a msg from sales stock associate Pt is unable to be scheduled -insurance is out of network SW attempted to contact Pt -left vm on [...] talking with the insurance. agreed to inform [facility] of the outcome of her conversation with the insurance No further contact is indicated -will wait to hear from MANSOOR De La Vega December 28, 2021 documented in this encounter [facility] 12-27-2021 Miscellaneous Notes Behavioral Health Social Work Progress Note Patient identified for [facility] from: PCP (Chu Zhao) Reason for referral: [facility] Assessment (failed mental health tx, SANJAY,panic) [facility] encounter type: Telephone Encounter Attempts to Outreach: 2 attempts Referral made: Psychology - Internal Psychology-Internal referral type: (scheduled assessment for 01-07-22 at 9am virtual) SW received a msg from Chu Zhao - would like for Pt to see [facility] psychiatry provider [facility] attempted to contact Pt -no answer [facility] for 01-07-22 at 9am virtual -sent jael comer with appt info, consent for tx, PHQ9 and GAD7 MANSOOR De La Vega December 27, 2021 documented in this encounter [facility] 12-27-2021 Miscellaneous Notes Spoke with and [...] should be managing medications. voiced understanding. Chely Rainey, RN Left message for pt's to contact [...] Alia Nuñez RN documented in this encounter [facility] 12-22-2021 Miscellaneous Notes BEHAVIORAL HEALTH SOCIAL WORK CONSULT NOTE Service Date: December 22, 2021 Patient was identified by name and Patient: Aldair Yepez [address] [facility] [address] (home) [phone] (cell) PCP: Clarence Rodriguez MD [address] [facility] [address] Patient identified for [facility] from: PCP (Chu Zhao) Reason for referral: [facility] Assessment (failed mental health tx, SANJAY,panic) [facility] encounter type: Telephone Encounter Assessment: SW received a consult from Chu Zhao, for assessment failed mental health tx, SANJAY, panic [facility] reviewed Pt's chart/insurance [facility] contacted Pt -he was unaware [facility] would be calling -stated has been communicating with [facility] office -reported he is receiving services from [facility], on line service -has seen a counselor -has an appt with a psychiatrist tomorrow at 8am Prefers to cont with current providers and not switch services at this time -Pt thanked [facility] for calling [facility] notified Chu Zhao, has services and will [...] is receiving counseling and psychiatry service from [facility]) Patient Discharged?: Yes Patient reported that caregiver was able to meet their needs today?: N/A Internal Referrals : No Reason for External Referrals : Other : Pt is established with behavioral health services, counseling and psychiatry at [facility], on line service Intervention: Supportive Listening Resources Provided: Other: none at this time Pt is established with behavioral health services Time Spent: 15 minutes MANSOOR De La Vega documented in this encounter [facility] 12-21-2021 Miscellaneous Notes noted Patient's calls and states that patient is feeling better. states that patient is just going to stop taking medication. Patient is not going to ER. Chely Rainey RN documented in this encounter [facility] 12-21-2021 Miscellaneous Notes Spoke with pt's . She advises that he is not back to normal and will take pt to [facility] ER as instructed by Caryl. [...] at work now. documented in this encounter [facility] 12-15-2021 History of Presen t illness [...] Relation Age of Onset Heart Maternal Grandfather [place] Hypertension Mother None Father Heart Maternal Uncle [...] If not improving, can set up with machine operator helper. Caryl Green PA-C documented in this encounter [facility] 12-10-2021 Miscellaneous Notes Patient spouse was [...] together? Please advise documented in this encounter [facility] 12-03-2021 Miscellaneous Notes Spoke with pt's and she states she will schedule appointment via My Chart tonight for pt. Vika Hernandez LPN Patient due [...] advise. Clementina Christina documented in this encounter [facility] 12-03-2021 Miscellaneous Notes Already addressed. Last refill 05/12/21 Qty: 30 with 5 refills Last ov 08/12/21 No appt scheduled Vika Hernandez LPN documented in this encounter [facility] 08-16-2019 History of Past i llness Narrative Problem Noted Date Resolved Date Globus sensation 08/16/2019 09/16/2019 documented as of this encounter (statuses as of 12/03/2021) [address] History of Past illness Narrative* Problem Noted Date Resolved Date Globus sensation 08/16/2019 09/16/2019 documented as of this encounter (statuses as of 12/03/2021) [place] [address] History of Past illness Narrative* Problem Noted Date Resolved Date Globus sensation 08/16/2019 09/16/2019 documented as of this encounter (statuses as of 12/10/2021) [place] [address] History of Past illness Narrative* Problem Noted Date Resolved Date Globus sensation 08/16/2019 09/16/2019 documented as of this encounter (statuses as of 12/15/2021) [place] [address] History of Past illness Narrative* Problem Noted Date Resolved Date Globus sensation 08/16/2019 09/16/2019 documented as of this encounter (statuses as of 12/21/2021) [place] [address] History of Past illness Narrative* Problem Noted Date Resolved Date Globus sensation 08/16/2019 09/16/2019 documented as of this encounter (statuses as of 12/21/2021) [place] [address] History of Past illness Narrative* Problem Noted Date Resolved Date Globus sensation 08/16/2019 09/16/2019 documented as of this encounter (statuses as of 12/22/2021) [place] [address] History of Past illness Narrative* Problem Noted Date Resolved Date Globus sensation 08/16/2019 09/16/2019 documented as of this encounter (statuses as of 12/27/2021) [place] [address] History of Past illness Narrative* Problem Noted Date Resolved Date Globus sensation 08/16/2019 09/16/2019 documented as of this encounter (statuses as of 12/28/2021) [place] [address] History of Past illness Narrative* Problem Noted Date Resolved Date Globus sensation 08/16/2019 09/16/2019 documented as of this encounter (statuses as of 12/30/2021) [place] [address] History of Past illness Narrative* Problem Noted Date Resolved Date Globus sensation 08/16/2019 09/16/2019 documented as of this encounter (statuses as of 01/10/2022) [place] [address] History of Past illness Narrative* Problem Noted Date Resolved Date Globus sensation 08/16/2019 09/16/2019 documented as of this encounter (statuses as of 01/21/2022) [place] [address] History of Past illness Narrative* Problem Noted Date Resolved Date Globus sensation 08/16/2019 09/16/2019 documented as of this encounter (statuses as of 02/21/2022) [place] [address] History of Past illness Narrative* Problem Noted Date Resolved Date Globus sensation 08/16/2019 09/16/2019 documented as of this encounter (statuses as of 03/15/2022) [place] [address] History of Past illness Narrative* Problem Noted Date Resolved Date Globus sensation 08/16/2019 09/16/2019 documented as of this encounter (statuses as of 03/22/2022) [place] [address] History of Past illness Narrative* Problem Noted Date Resolved Date Globus sensation 08/16/2019 09/16/2019 documented as of this encounter (statuses as of 03/23/2022) [place] [address] History of Past illness Narrative* Problem Noted Date Resolved Date Globus sensation 08/16/2019 09/16/2019 documented as of this encounter (statuses as of 03/23/2022) [place] [address] History of Past illness Narrative* Problem Noted Date Resolved Date Globus sensation 08/16/2019 09/16/2019 documented as of this encounter (statuses as of 03/29/2022) [place] [address] History of Past illness Narrative* Problem Noted Date Resolved Date Globus sensation 08/16/2019 09/16/2019 documented as of this encounter (statuses as of 04/07/2022) [place] [address] History of Past illness Narrative* Problem Noted Date Resolved Date Globus sensation 08/16/2019 09/16/2019 documented as of this encounter (statuses as of 04/08/2022) [place] [address] History of Past illness Narrative* Problem Noted Date Resolved Date Globus sensation 08/16/2019 09/16/2019 documented as of this encounter (statuses as of 04/29/2022) [place] [address] History of Past illness Narrative* Problem Noted Date Resolved Date Globus sensation 08/16/2019 09/16/2019 documented as of this encounter (statuses as of 05/10/2022) [place] [address] History of Past illness Narrative* Problem Noted Date Resolved Date Globus sensation 08/16/2019 09/16/2019 documented as of this encounter (statuses as of 05/10/2022) [place] [address] History of Past illness Narrative* Problem Noted Date Resolved Date Globus sensation 08/16/2019 09/16/2019 documented as of this encounter (statuses as of 05/16/2022) [place] [id number] History of Past illness Narrative* Problem Noted Date Resolved Date Globus sensation 08/16/2019 09/16/2019 documented as of this encounter (statuses as of 06/24/2022) [place] [id number] History of Past illness Narrative* Problem Noted Date Resolved Date Globus sensation 08/16/2019 09/16/2019 documented as of this encounter (statuses as of 07/17/2022) [place] [id number] History of Past illness Narrative* Problem Noted Date Resolved Date Globus sensation 08/16/2019 09/16/2019 documented as of this encounter (statuses as of 08/05/2022) [place] [address] History of Past illness Narrative* Problem Noted Date Resolved Date Globus sensation 08/16/2019 09/16/2019 documented as of this encounter (statuses as of 09/14/2022) [place] [address] History of Past illness Narrative* Problem Noted Date Resolved Date Globus sensation 08/16/2019 09/16/2019 documented as of this encounter (statuses as of 10/19/2022) [place] [address] History of Past illness Narrative* Problem Noted Date Resolved Date Globus sensation 08/16/2019 09/16/2019 documented as of this encounter (statuses as of 11/03/2022) [place] [address] History of Past illness Narrative* Problem Noted Date Resolved Date Globus sensation 08/16/2019 09/16/2019 documented as of this encounter (statuses as of 12/21/2022) [place] [address] History of Past illness Narrative* Problem Noted Date Resolved Date Globus sensation 08/16/2019 09/16/2019 documented as of this encounter (statuses as of 01/06/2023) [place] [address] History of Past illness Narrative* Problem Noted Date Diagnosed Date Resolved Date Globus sensation 08/16/2019 09/16/2019 documented as of this encounter (statuses as of 03/03/2023) [place] [address] History of Past illness Narrative* Problem Noted Date Diagnosed Date Resolved Date Globus sensation 08/16/2019 09/16/2019 documented as of this encounter (statuses as of 03/04/2023) [place] [address] History of Past illness Narrative* Problem Noted Date Diagnosed Date Resolved Date Globus sensation 08/16/2019 09/16/2019 documented as of this encounter (statuses as of 03/04/2023) [place] [address] History of Past illness Narrative* Problem Noted Date Diagnosed Date Resolved Date Globus sensation 08/16/2019 09/16/2019 documented as of this encounter (statuses as of 04/12/2023) [place] [address] History of Past illness Narrative* Problem Noted Date Diagnosed Date Resolved Date Globus sensation 08/16/2019 09/16/2019 documented as of this encounter (statuses as of 04/21/2023) [place] [address] History of Past illness Narrative* Problem Noted Date Diagnosed Date Resolved Date Globus sensation 08/16/2019 09/16/2019 documented as of this encounter (statuses as of 05/05/2023) [place] [address] History of Past illness Narrative* Problem Noted Date Diagnosed Date Resolved Date Globus sensation 08/16/2019 09/16/2019 documented as of this encounter (statuses as of 05/28/2023) [place] [address] History of Past illness Narrative* Problem Noted Date Diagnosed Date Resolved Date Globus sensation 08/16/2019 09/16/2019 documented as of this encounter (statuses as of 06/01/2023) [facility] note* Diagnosis SANJAY (generalized anxiety disorder)- Primary Generalized anxiety disorder Panic attack Panic disorder without agoraphobia Seasonal allergic rhinitis, unspecified trigger documented in this encounter [facility] note* Diagnosis Severe anxiety- Primary Mild depression Depressive disorder, not elsewhere classified [facility]No assessment information availableW[facility] Work Phone: Evaluation note* Diagnosis Panic disorder without agoraphobia- Primary [facility] Diagnosis Injury of head, initial encounter- Primary Accident caused by farm tractor, initial encounter [facility] Diagnosis Flank pain- Primary Abdominal pain, unspecified site Acute cystitis with hematuria Acute cystitis Acute pain of left shoulder [facility] Diagnosis Flank pain Abdominal pain, unspecified site Acute pain of left shoulder [facility] Diagnosis Acute pain of left shoulder- Primary [facility] Diagnosis Acute pain of left shoulder [facility] Diagnosis Acute pain of left shoulder- Primary [facility] Diagnosis Acute pain of left shoulder- Primary Traumatic complete tear of left rotator cuff, initial encounter [facility] Diagnosis Panic disorder without agoraphobia- Primary [facility]* Diagnosis Panic disorder without agoraphobia- Primary [facility]* Diagnosis Sorethroat- Primary Acute pharyngitis documented [facility] this [facility]* Diagnosis Fatty liver- Primary Other chronic nonalcoholic liver disease Encounter for lipid screening for cardiovascular disease Screening for lipoid disorders [facility] Diagnosis Well adult exam- Primary Routine [...] of unspecified site [facility] Diagnosis Rib pain on left side- Primary Chest pain, unspecified [facility] Diagnosis Atypical chest pain- Primary Other chest pain GERD without esophagitis Esophageal reflux Family history of early CAD Family history of ischemic heart disease [facility] Diagnosis Elevated LFTs Other abnormal blood chemistry [facility] Diagnosis GERD without esophagitis- Primary Esophageal reflux Encounter for immunization Need for other specified prophylactic vaccination against single bacterial disease documented in this encounter [facility] note* Diagnosis Exposure to blood- Primary Personal history of contact with and (suspected) exposure to potentially hazardous body fluids documented in this encounter [facility] note* Diagnosis Rib pain on left side Chest pain, unspecified documented in this encounter [facility] note* Diagnosis Sore throat- Primary Acute pharyngitis Acute otitis media, right Unspecified otitis media documented in this encounter [facility] note* Diagnosis Sore throat- Primary Acute pharyngitis Strep pharyngitis Streptococcal sore throat documented in this encounter [facility] note* Diagnosis Tonsillitis- Primary Acute tonsillitis Pharyngitis, unspecified etiology [facility] instructions[facility] Instructions Please stay away from raccoons. Follow-up with your primary care physician. You received your rabies immunoglobulin and vaccine here in the emergency department. You need to have recurrent rabies vaccines on day 3, day 7, day 14 from when you were bit.[facility] Work Phone: Reason for referral (narrative)* Diagnostic Procedure Only (Urgent) - Pending Review Specialty Diagnoses / Procedures Referred By Mario robbins Referred To Contact XR IMAGING Diagnoses Rib pain on left side Procedures XR RIBS/CHEST 3V AP RIB/OBLS/CXR LEFT RADEX RIBS UNI W/POSTEROANT CH MINIMUM 3 VIEWS Uma Jimenez APRN.CNP [id number] [place] [address] Xr Imaging Referral ID Status Reason Start Date Expiration Date Visits Requested Visits Authorized [id number] Pending Review Auto-Generat ed Referral 03/04/2023 04/02/2024 1 1 [facility] for referral (narrative)* Outpatient Procedure (Routine) - Denied Specialty Diagnoses / Procedures Referred By Mario robbins Referred To Contact [facility] Diagnoses Atypical chest pain Procedures ECG COMPLETE ECG ROUTINE ECG W/LEAST 12 LDS W/I&R Clarence Rodriguez MD [address] [place] [address] [facility] [place] [address] [place] [address] Referral ID Status Reason Start Date Expiration Date V isits Requested Visits Authorized [id number] Denied Auto-Generate d Referral 04/20/2023 04/19/2024 1 0 [facility] for referral (narrative)* Diagnostic Procedure Only (Routine) - Closed Specialty Diagnoses / Procedures Referred By Contac t Referred To Contact US IMAGING Diagnoses Elevated LFTs Procedures US ABD RIGHT UPPER QUADRANT US ABDOMINAL REAL TIME W/IMAGE LIMITED Caryl Green PA-C [address] [place] [address] Us Imaging [facility] Referral ID Status Reason Start Date Expiration Date V isits Requested Visits Authorized [id number] Closed Patient Cleared - True Self-Pay required payment collected 12/13/2022 01/12/2024 1 1 T [facility] for referral (narrative)* Diagnostic Procedure Only (Urgent) - Denied Specialty Diagnoses / Procedures Referred By Contac t Referred To Contact XR IMAGING Diagnoses Rib pain on left side Procedures XR RIBS/CHEST 3V AP RIB/OBLS/CXR LEFT RADEX RIBS UNI W/POSTEROANT CH MINIMUM 3 VIEWS Uma Jimenez, NOE [address] [place] [address] X[facility] Imaging [facility] Referral ID Status Reason Start Date Expiration Date Visits Re quested Visits Authorized [id number] Denied 03/04/2023 04/02/2024 1 0 [facility] for referral (narrative)No reason for referral information availableWWayne Hospital Work Phone: Reason for visit Narrative* Diagnostic Procedure Only (Routine) - Denied Specialty Diagnoses / Procedures Referred By Contac t Referred To Contact XR IMAGING Diagnoses Acute pain of left shoulder Procedures XR SHOULDER GENERAL 3V OR MORE AP/TRUE AP/OTHER LEFT RADEX SHOULDER COMPLETE MINIMUM 2 VIEWS Anuel Mckenna MD [address] [place] [address] Xr Imaging Referral ID Status Reason Start Date Expiration Date V isits Requested Visits Authorized [id number] Denied Auto-Generate d Referral OON/Self Pay Override 04/28/2022 05/28/2023 1 0 [facility]* Diagnostic Procedure Only (Urgent) - Denied Specialty Diagnoses / Procedures Referred By Contac t Referred To Contact XR IMAGING Diagnoses Rib pain on left side Procedures XR RIBS/CHEST 3V AP RIB/OBLS/CXR LEFT RADEX RIBS UNI W/POSTEROANT CH MINIMUM 3 VIEWS Uma Jimenez APRN.ASSOCIATE EDITOR [address] [place] [address] [place] [address] Referral ID Status Reason Start Date Expiration Date Visits Re quested Visits Authorized [id number] Denied 03/04/2023 04/02/2024 1 0 [facility] Advance Directives Documents on File Type Date Recorded Patient Campus Administrative Assistant Expl anation Advance Directive(s) 09/17/2019 8:33 AM Advance Directive Response Recorded Date/ Time Living Will No February 13, 2022 8:02pm Power of Manager Animation No February 13 8:02pm Advance Directive Response Recorded Date/ Time Living Will No March 15 11:41am Power of Manager Animation No March 15 11:41am Advance Directive Response Recorded Date/ Time Living Will No November 13, 2023 6:49pm Power of Manager Animation No November 12 6:49pm Advance Directive Response Recorded Date/ Time Do you have a Healthcare Power of Manager Animation? No February 01, 2025 11:55pm Chief Complaint and Reason for Visit Chief Complaint lac Chief Complaint lac ROLLED LAP [employer]ER Chief Complaint lac ROLLED LAP [employer]ER FLANK PAIN Chief Complaint Other chest pain Other chest pain Chief Complaint wound check Chief Complaint Admit Date bite February 01, 2025 11:5 0pm Chief Complaint Admit Date bite February 01, 2025 11:5 0pm Rabies vaccination February 05, 2025 1:12 pm Chief Complaint Admit Date bite February 01, 2025 11:5 0pm Rabies vaccination February 05, 2025 1:12 pm RABIES VACCINE February 09, 2025 12:1 0pm Reason for Referral Specialty Diagnoses / Procedures Referred By Contac t Referred To Contact CT IMAGING Diagnoses Flank pain Gross hematuria Procedures CT ABD/PEL WO IVCON CT ABD & PELVIS W/O CONTRAST Nae Domínguez, MOLD TECHNICIAN.ASSOCIATE EDITOR [address] [place] [address] Ct Imaging Referral ID Status Reason Start Date Expiration Date V isits Requested Visits Authorized [id number] Closed Auto-Generate d Referral 03/22/2022 04/21/2023 1 1 Specialty Diagnoses / Procedures Referred By Contac t Referred To Contact [facility] Diagnoses Acute pain of left shoulder Procedures CONSULT TO PHYSICAL THERAPY PHYSICAL THERAPY EVALUATION HIGH COMPLEX 45 MINS Nae Domínguez, MOLD TECHNICIAN.ASSOCIATE EDITOR [address] [place] [address] [facility] [place] [address] [place] [address] Referral ID Status Reason Start Date Expiration Date Visits Requested Visits Authorized [id number] Pending Review Auto-Generat ed Referral 03/29/2022 03/29/2023 1 1 Specialty Diagnoses / Procedures Referred By Contac t Referred To Contact Orthopedics Diagnoses Acute pain of left shoulder Procedures CONSULT TO ORTHOPAEDICS OFFICE/OUTPATIENT ON LICENSE OF [facility] MDM 60-74 MINUTES Nae Domínguez, MOLD TECHNICIAN.ASSOCIATE EDITOR [address] [place] [address] [place] [address] Referral ID Status Reason Start Date Expiration Date V isits Requested Visits Authorized [id number] Denied PCP Requested Referral 04/08/2022 04/08/2023 1 0 Specialty Diagnoses / Procedures Referred By Contac t Referred To Contact MR IMAGING Diagnoses Acute pain of left shoulder Traumatic complete tear of left rotator cuff, initial encounter Procedures MRI SHOULDER WO IVCON LT MRI ANY JT UPPER EXTREMITY W/O CONTRAST Anuel Reno MD [address] [place] [address] Mr Imaging Referral ID Status Reason Start Date Expiration Date Visits Requested Visits Authorized [id number] Closed Auto-Generated Referral Patient cleared - OON Required Payment Collected OON Notification Letter 04/28/2022 05/28/2023 1 1 Specialty Diagnoses / Procedures Referred By Contac t Referred To Contact XR IMAGING Diagnoses Acute pain of left shoulder Procedures XR SHOULDER GENERAL 3V OR MORE AP/TRUE AP/OTHER LEFT RADEX SHOULDER COMPLETE MINIMUM 2 VIEWS Anuel Mckenna MD [address] [place] [address] Xr Imaging Referral ID Status Reason Start Date Expiration Date V isits Requested Visits Authorized [id number] Denied Auto-Generate d Referral OON/Self Pay Override [...] or prosecute any alcohol or drug abuse patient.[facility] the event this information is protected by the Federal Confidentiality of Alcohol and Drug Abuse Patient Records regulations: The Federal rules restrict any use of the information to criminally investigate or prosecute any alcohol or drug abuse patient.[facility] the event this information is protected by the Federal Confidentiality of Alcohol and Drug Abuse Patient Records regulations: The Federal rules restrict any use of the information to criminally investigate or prosecute any alcohol or drug abuse patient.[facility] HospitalIn the event this information is protected by the Federal Confidentiality of Alcohol and Drug Abuse Patient Records regulations: The Federal rules restrict any use of the information to criminally investigate or prosecute any alcohol or drug abuse patient.[facility] the event this information is protected by the Federal Confidentiality of Alcohol and Drug Abuse Patient Records regulations: The Federal rules restrict any use of the information to criminally investigate or prosecute any alcohol or drug abuse patient.[facility] Hospital[facility] the event this information is protected by the Federal Confidentiality of Alcohol and Drug Abuse Patient Records regulations: The Federal rules restrict any use of the information to criminally investigate or prosecute any alcohol or drug abuse patient.[facility] HospitalIn the event this information is protected by the Federal Confidentiality of Alcohol and Drug Abuse Patient Records regulations: The Federal rules restrict any use of the information to criminally investigate or prosecute any alcohol or drug abuse patient.[facility] Hospital[facility] the event this information is protected by the Federal Confidentiality of Alcohol and Drug Abuse Patient Records regulations: The Federal rules restrict any use of the information to criminally investigate or prosecute any alcohol or drug abuse patient.[facility] HospitalIn the event this information is protected by the Federal Confidentiality of Alcohol and Drug Abuse Patient Records regulations: The Federal rules restrict any use of the information to criminally investigate or prosecute any alcohol or drug abuse patient.[facility] HospitalIn the event this information is protected by the Federal Confidentiality of Alcohol and Drug Abuse Patient Records regulations: The Federal rules restrict any use of the information to criminally investigate or prosecute any alcohol or drug abuse patient.[facility] HospitalIn the event this information is protected by the Federal Confidentiality of Alcohol and Drug Abuse Patient Records regulations: The Federal rules restrict any use of the information to criminally investigate or prosecute any alcohol or drug abuse patient.[facility] HospitalIn the event this information is protected by the Federal Confidentiality of Alcohol and Drug Abuse Patient Records regulations: The Federal rules restrict any use of the information to criminally investigate or prosecute any alcohol or drug abuse patient.[facility] HospitalIn the event this information is protected by the Federal Confidentiality of Alcohol and Drug Abuse Patient Records regulations: The Federal rules restrict any use of the information to criminally investigate or prosecute any alcohol or drug abuse patient.[facility] HospitalIn the event this information is protected by the Federal Confidentiality of Alcohol and Drug Abuse Patient Records regulations: The Federal rules restrict any use of the information to criminally investigate or prosecute any alcohol or drug abuse patient.[facility] HospitalIn the event this information is protected by the Federal Confidentiality of Alcohol and Drug Abuse Patient Records regulations: The Federal rules restrict any use of the information to criminally investigate or prosecute any alcohol or drug abuse patient.[facility] HospitalIn the event this information is protected by the Federal Confidentiality of Alcohol and Drug Abuse Patient Records regulations: The Federal rules restrict any use of the information to criminally investigate or prosecute any alcohol or drug abuse patient.[facility] HospitalIn the event this information is protected by the Federal Confidentiality of Alcohol and Drug Abuse Patient Records regulations: The Federal rules restrict any use of the information to criminally investigate or prosecute any alcohol or drug abuse patient.[facility] HospitalIn the event this information is protected by the Federal Confidentiality of Alcohol and Drug Abuse Patient Records regulations: The Federal rules restrict any use of the information to criminally investigate or prosecute any alcohol or drug abuse patient.[facility] HospitalIn the event this information is protected by the Federal Confidentiality of Alcohol and Drug Abuse Patient Records regulations: The Federal rules restrict any use of the information to criminally investigate or prosecute any alcohol or drug abuse patient.[facility] HospitalIn the event this information is protected by the Federal Confidentiality of Alcohol and Drug Abuse Patient Records regulations: The Federal rules restrict any use of the information to criminally investigate or prosecute any alcohol or drug abuse patient.[facility] HospitalIn the event this information is protected by the Federal Confidentiality of Alcohol and Drug Abuse Patient Records regulations: The Federal rules restrict any use of the information to criminally investigate or prosecute any alcohol or drug abuse patient.[facility] HospitalIn the event this information is protected by the Federal Confidentiality of Alcohol and Drug Abuse Patient Records regulations: The Federal rules restrict any use of the information to criminally investigate or prosecute any alcohol or drug abuse patient.[facility] HospitalIn the event this information is protected by the Federal Confidentiality of Alcohol and Drug Abuse Patient Records regulations: The Federal rules restrict any use of the information to criminally investigate or prosecute any alcohol or drug abuse patient.[facility] HospitalIn the event this information is protected by the Federal Confidentiality of Alcohol and Drug Abuse Patient Records regulations: The Federal rules restrict any use of the information to criminally investigate or prosecute any alcohol or drug abuse patient.[facility] HospitalIn the event this information is protected by the Federal Confidentiality of Alcohol and Drug Abuse Patient Records regulations: The Federal rules restrict any use of the information to criminally investigate or prosecute any alcohol or drug abuse patient.[facility] HospitalIn the event this information is protected by the Federal Confidentiality of Alcohol and Drug Abuse Patient Records regulations: The Federal rules restrict any use of the information to criminally investigate or prosecute any alcohol or drug abuse patient.[facility] HospitalIn the event this information is protected by the Federal Confidentiality of Alcohol and Drug Abuse Patient Records regulations: The Federal rules restrict any use of the information to criminally investigate or prosecute any alcohol or drug abuse patient.[facility] HospitalIn the event this information is protected by the Federal Confidentiality of Alcohol and Drug Abuse Patient Records regulations: The Federal rules restrict any use of the information to criminally investigate or prosecute any alcohol or drug abuse patient.[facility] HospitalIn the event this information is protected by the Federal Confidentiality of Alcohol and Drug Abuse Patient Records regulations: The Federal rules restrict any use of the information to criminally investigate or prosecute any alcohol or drug abuse patient.[facility] HospitalIn the event this information is protected by the Federal Confidentiality of Alcohol and Drug Abuse Patient Records regulations: The Federal rules restrict any use of the information to criminally investigate or prosecute any alcohol or drug abuse patient.[facility] the event this information is protected by the Federal Confidentiality of Alcohol and Drug Abuse Patient Records regulations: The Federal rules restrict any use of the information to criminally investigate or prosecute any alcohol or drug abuse patient.[facility] HospitalIn the event this information is protected by the Federal Confidentiality of Alcohol and Drug Abuse Patient Records regulations: The Federal rules restrict any use of the information to criminally investigate or prosecute any alcohol or drug abuse patient.[facility] HospitalIn the event this information is protected [...] or prosecute any alcohol or drug abuse patient.[facility] HospitalIn the event this information is protected by the Federal Confidentiality of Alcohol and Drug Abuse Patient Records regulations: The Federal rules restrict any use of the information to criminally investigate or prosecute any alcohol or drug abuse patient.[facility] HospitalIn the event this information is protected by the Federal Confidentiality of Alcohol and Drug Abuse Patient Records regulations: The Federal rules restrict any use of the information to criminally investigate or prosecute any alcohol or drug abuse patient.[facility] HospitalIn the event this information is protected by the Federal Confidentiality of Alcohol and Drug Abuse Patient Records regulations: The Federal rules restrict any use of the information to criminally investigate or prosecute any alcohol or drug abuse patient.[facility] HospitalIn the event this information is protected by the Federal Confidentiality of Alcohol and Drug Abuse Patient Records regulations: The Federal rules restrict any use of the information to criminally investigate or prosecute any alcohol or drug abuse patient.[facility] HospitalIn the event this information is protected by the Federal Confidentiality of Alcohol and Drug Abuse Patient Records regulations: The Federal rules restrict any use of the information to criminally investigate or prosecute any alcohol or drug abuse patient.[facility] HospitalIn the event this information is protected by the Federal Confidentiality of Alcohol and Drug Abuse Patient Records regulations: The Federal rules restrict any use of the information to criminally investigate or prosecute any alcohol or drug abuse patient.[facility] HospitalIn the event this information is protected by the Federal Confidentiality of Alcohol and Drug Abuse Patient Records regulations: The Federal rules restrict any use of the information to criminally investigate or prosecute any alcohol or drug abuse patient.[facility] HospitalIn the event this information is protected by the Federal Confidentiality of Alcohol and Drug Abuse Patient Records regulations: The Federal rules restrict any use of the information to criminally investigate or prosecute any alcohol or drug abuse patient.[facility] HospitalIn the event this information is protected by the Federal Confidentiality of Alcohol and Drug Abuse Patient Records regulations: The Federal rules restrict any use of the information to criminally investigate or prosecute any alcohol or drug abuse patient.[facility] HospitalIn the event this information is protected by the Federal Confidentiality of Alcohol and Drug Abuse Patient Records regulations: The Federal rules restrict any use of the information to criminally investigate or prosecute any alcohol or drug abuse patient.[facility] HospitalIn the event this information is protected by the Federal Confidentiality of Alcohol and Drug Abuse Patient Records regulations: The Federal rules restrict any use of the information to criminally investigate or prosecute any alcohol or drug abuse patient.[facility] HospitalIn the event this information is protected by the Federal Confidentiality of Alcohol and Drug Abuse Patient Records regulations: The Federal rules restrict any use of the information to criminally investigate or prosecute any alcohol or drug abuse patient.[facility] HospitalIn the event this information is protected by the Federal Confidentiality of Alcohol and Drug Abuse Patient Records regulations: The Federal rules restrict any use of the information to criminally investigate or prosecute any alcohol or drug abuse patient.[facility] Reason for Visit (unrecogniz ed section and content) Reason Comments Follow Up Specialty Diagnoses / Procedures Referred By Mario robbins Referred To Contact FAMILY MEDICINE Diagnoses gerd/chest pain follow up Procedures OFFICE/OUTPATIENT ESTABLISHED MOD MDM 30-39 MIN Clarence Piedra MD [address] [place] [address] [facility] [address] [place] [address] Referral ID Status Reason Start Date Expiration Date Visits Requested Visits Authorized [id number] Closed Financial Clearance Required - OON Payor OON Notification Letter Patient cleared - OON Required Payment Collected 04/20/2023 07/19/2023 1 1 Specialty Diagnoses / Procedures Referred By Contac t Referred To Contact ADULT PSYCHIATRY Diagnoses Virtual Procedures Virtual Tayler Gonsalez, MOLD TECHNICIAN.ASSOCIATE EDITOR [address] [place] [address] Psyc Adult [facility] [address] [place] [address] Referral ID Status Reason Start Date Expiration Date Visits Requested Visits Authorized [id number] Closed Financial Clearance Required - OON Payor OON Notification Letter Patient cleared - OON Required Payment Collected 2 10/17/2022 1 1 Reason Onset Date Comments Refill Request 12/02/2021 Reason Comments Medication Question Reason Comments Recheck medication Specialty Diagnoses / Procedures Referred By Mario t Referred To Contact Family Practice / FAMILY MEDICINE Diagnoses Encounter for follow-up examination after completed treatment for conditions other than malignant neoplasm Renewing medication Procedures OFFICE/OUTPATIENT ESTABLISHED MOD MDM 30-39 MIN MYC OFFICE VISIT Self Caryl Green PA-C [address] [place] [address] Referral ID Status Reason Start Date Expiration Date Visits Requested Visits Authorized [id number] Closed Financial Clearance Required - OON Payor Clearance Not Met - Admin/Maritime Pilot/D irector Advise to Postpone/Resched ule or Not Proceed OON Notification Letter 12/15/2021 07/23/2022 1 1 Reason Comments Patient Update Medication Problem Reason Comments Patient Update Reason Comments Consult Initial [facility] Pt Outr each Reason Comments Consult [facility] Pt Outreach F/U Reason Comments Patient Question Reason Comments Consult [facility] Calling Reason Comments Consult [facility] Assessment Virt ua Specialty Diagnoses / Procedures Referred By Mario t Referred To Contact ADULT PSYCHOLOGY Diagnoses anxiety/ eval Procedures REFERRAL TO CC FINANCIAL COUNSELOR PSYCHIATRIC DIAGNOSTIC EVALUATION 1st eval Clarence Rodriguez MD [address] [place] [address] Psyl Adult [facility] [address] [address] Referral ID Status Reason Start Date Expiration Date Visits Requested Visits Authorized [id number] Closed Financial Clearance Required - OON Payor OON Notification Letter Patient cleared - OON Required Payment Collected 12/27/2021 03/27/2022 1 1 Reason Comments New Patient Evaluation Specialty Diagnoses / Procedures Referred By Contac t Referred To Contact ADULT PSYCHOLOGY Diagnoses medication Procedures REFERRAL TO [facility] FINANCIAL COUNSELOR EST patient Grey Barkley LISW [address] [place] [address] Psyl Adult [facility] [address] [address] Referral ID Status Reason Start Date Expiration Date Visits Requested Visits Authorized [id number] Closed Financial Clearance Required - OON Payor OON Notification Letter Patient Cleared Patient chose to pay or Auth obtained after CCN denied 01/28/2022 04/28/2022 1 1 Reason Comments left shoulder pain Flipped mower over 1 hour ago Reason Comments ER F/U [facility] ER follow up 02/22 3 dx: mower rolled over on him Specialty Diagnoses / Procedures Referred By Contac t Referred To Contact FAMILY MEDICINE Diagnoses ER f/u Procedures consult and treat [facility] [address] [place] [address] Referral ID Status Reason Start Date Expiration Date V isits Requested Visits Authorized [id number] Denied OON/Self Pay Override 03/22/2022 06/20/2022 1 0 Reason Comments Results Reason Comments PT Eval Specialty Diagnoses / Procedures Referred By Contac t Referred To Contact [facility] Diagnoses Acute pain of left shoulder Procedures CONSULT TO PHYSICAL THERAPY PHYSICAL THERAPY EVALUATION HIGH COMPLEX 45 MINS Nae Domínguez, MOLD TECHNICIAN.ASSOCIATE EDITOR [address] [place] [address] [facility] [address] [place] [address] Referral ID Status Reason Start Date Expiration Date V isits Requested Visits Authorized [id number] Closed Financial Clearance Required - OON Payor [...] Anuel Mckenna MD [address] [place] [address] Mr Imaging Referral ID Status Reason Start Date Expiration Date Visits Requested Visits Authorized [id number] Closed Auto-Generated Referral Patient cleared - OON Required Payment Collected OON Notification Letter 04/28/2022 05/28/2023 1 1 Reason Comments New Pain Specialty Diagnoses / Procedures Referred By Gillianelaine t Referred To Contact ORTHOPAEDIC SURGERY Diagnoses Torn Rotator Cuff Procedures Office Visit Anuel Mckenna MD [address] [place] [address] [facility] [address] [place] [address] Referral ID Status Reason Start Date Expiration Date Visits Requested Visits Authorized [id number] Closed Financial Clearance Required - OON Payor OON Notification Letter Patient cleared - OON Required Payment Collected 04/11/2022 07/10/2022 1 1 Reason Onset Date Comments Refill Request 06/24/2022 Specialty Diagnoses / Procedures Referred By Mario t Referred To Contact Psychiatry / ADULT PSYCHIATRY Diagnoses NEW PATIENT Procedures VIDEO PSYC/PSYL NEW Filippo, Grey, QUALITY AUDIT REPRESENTATIVE [address] [place] [address] Tayler Gonsalez, MOLD TECHNICIAN.[facility] [address] [place] [address] Referral ID Status Reason Start Date Expiration Date Visits Requested Visits Authorized [id number] Closed Financial Clearance Required - OON Payor [...] COUNSELOR TEST, TREAT, CONSULT Caryl Green PA-C [address] [place] [address] [facility] [address] [place] [address] Referral ID Status Reason Start Date Expiration Date V isits Requested Visits Authorized [id number] Closed Financial Clearance Required - OON Payor Patient cleared - OON Required Payment Collected 02/15/2023 05/16/2023 1 1 Reason Comments Pain (Shoulder Pain) left shoulder pain into chest x 2 days, comes and goes Reason Comments Pain Specialty Diagnoses / Procedures Referred By Contac t Referred To Contact [facility] Diagnoses GERD ISSUES Procedures REFERRAL TO [facility] FINANCIAL COUNSELOR EST 4C Clarence Rodriguez MD [address] [place] [id number] [facility] [place] [address] Referral ID Status Reason Start Date Expiration Date Visits Requested Visits Authorized [id number] Closed Financial Clearance Required - OON Payor OON Notification Letter Patient cleared - OON Required Payment Collected 04/11/2023 07/10/2023 1 1 Reason Comments Radiology US Specialty Diagnoses / Procedures Referred By Contac t Referred To Contact US IMAGING Diagnoses Elevated LFTs Procedures US ABD RIGHT UPPER QUADRANT US ABDOMINAL REAL TIME W/IMAGE LIMITED Caryl Green PA-C [address] [place] [address] [place] [address] Referral ID Status Reason Start Date Expiration Date V isits Requested Visits Authorized [id number] Closed Patient Cleared - True Self-Pay required [...] Care Teams (unrecognized sec tion and content) Cured Meats Supervisor Relationship Specialty Start Date End Date Clarence Rodriguez MD [address] [facility] [place] [address] PCP - General Family Practice 10/03/19 Cured Meats Supervisor Relationship Specialty Start Date End Date Clarence Rodriguez MD [facility] [place] [address] PCP - General Family Practice 10/03/19 Cured Meats Supervisor Relationship Specialty Start Date End Date Clarence Rodriguez MD [address] [place] [address], [place] [address] PCP - General Family Practice 10/03/19 Cured Meats Supervisor Relationship Specialty Start Date End Date Clarence Rodriguez MD [address] [place] [address], [place] [address] PCP - General Family Practice 10/03/19 Cured Meats Supervisor Relationship Specialty Start Date End Date Clarence Rodriguez MD [address] [place] [address], [place] [address] PCP - General Family Practice 10/03/19 Cured Meats Supervisor Relationship Specialty Start Date End Date Clarence Rodriguez MD [address] [place] [address], [place] [address] PCP - General Family Practice 10/03/19 Cured Meats Supervisor Relationship Specialty Start Date End Date Clarence Rodriguez MD [address] [place] [address], [place] [address] PCP - General Family Practice 10/03/19 Cured Meats Supervisor Relationship Specialty Start Date End Date Clarence Rodriguez MD [address] [place] [address], [place] [address] PCP - General Family Practice 10/03/19 Cured Meats Supervisor Relationship Specialty Start Date End Date Clarence Rodriguez MD [address] [place] [address], [place] [address] PCP - General Family Practice 10/03/19 Cured Meats Supervisor Relationship Specialty Start Date End Date Clarence Rodriguez MD [address] [facility] [place] [address] PCP - General Family Practice 10/03/19 Cured Meats Supervisor Relationship Specialty Start Date End Date Clarence Rodriguez MD [facility] [place] [address] PCP - General Family Practice 10/03/19 Cured Meats Supervisor Relationship Specialty Start Date End Date Clarence Rodriguez MD [address] [place] [address], [place] [address] PCP - General Family Practice 10/03/19 Cured Meats Supervisor Relationship Specialty Start Date End Date Clarence Rodriguez MD [address] [place] [address], [place] [address] PCP - General Family Medicine 10/03/19 Cured Meats Supervisor Relationship Specialty Start Date End Date Clarence Rodriguez MD [address] [place] [address], [place] [address] PCP - General Family Medicine 10/03/19 Cured Meats Supervisor Relationship Specialty Start Date End Date Clarence Rodriguez MD [address] [place] [address], [place] [address] PCP - General Family Medicine 10/03/19 Cured Meats Supervisor Relationship Specialty Start Date End Date Clarence Rodriguez MD [facility] [place] [address] PCP - General Family Medicine 10/03/19 Cured Meats Supervisor Relationship Specialty Start Date End Date Clarence Rodriguez MD [address] [place] [address], [place] [address] PCP - General Family Medicine 10/03/19 Cured Meats Supervisor Relationship Specialty Start Date End Date Clarence Rodriguez MD [address] [place] [address], [place] [address] PCP - General Family Medicine 10/03/19 Cured Meats Supervisor Relationship Specialty Start Date End Date Clarence Rodriguez MD [address] [place] [address] PCP - General Family Medicine 10/03/19 Cured Meats Supervisor Relationship Specialty Start Date End Date Clarence Rodriguez MD [address] [place] [address] PCP - General Family Medicine 10/03/19 Cured Meats Supervisor Relationship Specialty Start Date End Date Clarence Rodriguez MD [address] [place] [address] PCP - General Family Medicine 10/03/19 Cured Meats Supervisor Relationship Specialty Start Date End Date Clarence Rodriguez MD [address] [place] [address] PCP - General Family Medicine 10/03/19 Cured Meats Supervisor Relationship Specialty Start Date End Date Clarence Rodriguez MD [address] [place] [address] PCP - General Family Medicine 10/03/19 Cured Meats Supervisor Relationship Specialty Start Date End Date Clarence Rodriguez MD [address] [place] [address] PCP - General Family Medicine 10/03/19 Cured Meats Supervisor Relationship Specialty Start Date End Date Clarence Rodriguez MD [address] [place] [address] PCP - General Family Medicine 10/03/19 Cured Meats Supervisor Relationship Specialty Start Date End Date Clarence Rodriguez MD [address] [place] [address] PCP - General Family Medicine 10/03/19 Cured Meats Supervisor Relationship Specialty Start Date End Date Clarence Rodriguez MD [address] [place] [address] PCP - General Family Medicine 10/03/19 Cured Meats Supervisor Relationship Specialty Start Date End Date Clarence Rodriguez MD [address] [place] [address] PCP - General Family Medicine 10/03/19 Cured Meats Supervisor Relationship Specialty Start Date End Date Clarence Rodriguez MD [address] [place] [address] PCP - General Family Medicine 10/03/19 Team [...] Rodriguez MD Attending Provider, Referring Provider Active Cured Meats Supervisor Relationship Specialty Start Date End Date Clarence Rodriguez MD [address] [place] [address] PCP - General Family Medicine 10/03/19 Cured Meats Supervisor Relationship Specialty Start Date End Date Clarence Rodriguez MD [address] [place] [address] PCP - General Family Medicine 10/03/19 Team Status: Inactive Member Role Status Dates Caryl LONGORIA PA Primary Care Provider Active Dr. Richelle Richards MD Emergency Provider Active Cured Meats Supervisor Relationship Specialty Start Date End Date Clarence Rodriguez MD [address] [place] [address] PCP - General Family Medicine 10/03/19 Cured Meats Supervisor Relationship Specialty Start Date End Date Clarence Rodriguez MD [address] [place] [address] PCP - General Family Medicine 10/03/19 Cured Meats Supervisor Relationship Specialty Start Date End Date Clarence Rodriguez MD [address] [place] [address] PCP - General Family Medicine 10/03/19 Blanca Olivares APRN.ASSOCIATE EDITOR [address] [place] [address] Lounge Car Attendant Family Medicine 06/29/24 Caryl Green PA-C [address] [place] [address] Lounge Car Attendant Family Medicine 06/29/24 Cured Meats Supervisor Relationship Specialty Start Date End Date Clarence Rodriguez MD [address] [place] [address] PCP - General Family Medicine 10/03/19 Blanca Olivares APRN.ASSOCIATE EDITOR [address] [place] [address] Lounge Car Attendant Family Medicine 06/29/24 Caryl Green PA-C [address] [place] [address] Lounge Car Attendant Family Medicine 06/29/24 Team Status: Active Member [...] Magaña Primary Care Provider Active Start: February 05, 2025 End: February 05, 2025 Dr. Jak Bates , DO Emergency Provider Activ e Start: February 05, 2025 End: February 05, 2025 Team Status: Inactive Member Role/Relationship Status Dates SWATI Magaña Primary Care Provider Active Start: February 01, 2025 End: 2025 Dr. Jak Bates , DO Attending Provider Activ e Start: February 01, 2025 End: 2025 Dr. Jak Bates DO Emergency Provider Activ e Start: February 01, 2025 End: 2025 Team Status: Inactive Member Role/Relationship Status Dates SWATI Magaña Primary Care Provider Active Start: February 05, 2025 End: February 05, 2025 Dr. Jak Bates , DO Attending Provider Activ e Start: February 05, 2025 End: February 05, 2025 Team Status: Inactive Member Role/Relationship Status Dates SWATI Magaña Primary Care Provider Active Start: February 09, 2025 End: February 09, 2025 Dr. Jak Bates DO Emergency Provider Activ e Start: February 09, 2025 End: February 09, 2025 Goals (unrecognized section and content) Goals [...] section and content) DATE CREATED AUTHOR 08/07/2024 [facility] DATE CREATED AUTHOR 'S JOSSELYN ATION 02/05/2025 [facility] FOR RECORDS PERTAINING TO PATIENTS WHO ARE [...] BE BASED ON THE PRIMARY CLINICAL RECORDS. [facility]. provides no warranty or guarantee of the accuracy or completeness of information in this document.
== END 2025-02-09 12:45 | disposition home or self-care (01) ==
PROVIDERS: PCP Physician Assistant; Visit Provider Surgery
DX: Z23 Encounter for immunization (principal)
CPT/HCPCS: 90675

== ENCOUNTER → 2025-02-16 | Outpatient (CLI) | payer OTHER, SELFPAY ==
[2025-02-16 11:47] VITALS: BP 128/92; PULSE 73; RESP 18; TEMP 36.2; O2SAT 98; BMI 42.1
--- OUTSIDE RECORDS SUMMARY | 2025-02-16 11:57 | XMS RPT_ITS | CCD ---
Author Organization [facility] Care Team Providers Care Business Analyst Ecommerce Name Role Phone Clarence Rodriguez MD Primary Care Provider SWATI Hilton Primary Care Provider [phone] Dr. Clarence Rodriguez Referring Provider Dr. Clarence Rodriguez Other Provider Dr. Segun Maciel Attending Provider Clarence Rodriguez MD Primary Care Provider Clarence Rodriguez MD Primary Care Provider Clarence Rodriguez MD Primary Care Provider Marshall TINOCOCOMB TENDER, Blanca Unavailable Caryl Green PA-C Unavailable CLARENCE RODRIGUEZ Attending Unavailable CLARENCE RODRIGUEZ Primary Care Unavailable CLARENCE RODRIGUEZ Attending Unavailable CLARENCE RODRIGUEZ Primary Care Unavailable CLARENCE RODRIGUEZ Primary Care Unavailable CLARENCE RODRIGUEZ Primary Care Unavailable CLARENCE RODRIGUEZ Primary Care Unavailable Caryl Hilton Primary Care Provider Dr. Jak Bates DO Emergency Provider Dr. Jak Bates DO Attending Provider Caryl Hilton Primary Care Unavailable Jak Bates Attending Jak Villafuerte Attending Caryl Stahl Primary Care Unavailable Caryl Hilton Primary Care Unavailable Jak Bates Attending Unavailhomer e Medications Current Medications Medication Drug Class(es) Dates [...] Comment on above: Take 1 tablet by [facility] every 8 hours as needed for [...] Comment on above: Take 1 capsule by [facility] twice daily for 10 days. amoxicillin 875 [...] Start: 07-22-2023 take 1 capsule by mo [facility] once daily at bedtime fluvoxaMINE ER [...] above: Take 1 capsule by mo [facility] daily before breakfast. 1/2 hr before [...] Discontinued 1 {tbl} PO TWICE A DAY 20 February 13, 2022 12:00am 2025 12:22am Start: [...] Cut/pierceb (7 sources) Accident caused by powered digital marketer; Translations: [Contact with powered digital marketer, initial encounter] 03-23-2022 Episodic E Codes: Machinery [...] [Nonalcoholic steatohepatitis (LOCKHART)] Onset: 03-01-2023 03-01-2023 Chronic Immunizations and screening for infectious disease (1 source) Encounter for immunization; Translations: [Encounter for immunization] Onset: 02-12-2025 Episodic Mood disorders (1 source) Mild depression; Translations: [...] damage to nail, initial encounter] 02-21-2022 Episodic Open wounds of extremities (1 source) Open bite of right thumb without damage to nail, initial encounter; Translations: [Open bite of right thumb without damage to nail, initial encounter] Onset: 02-07-2025 Episodic Other injuries and conditions due to [...] Department Summary on 2025 Emergency Department Summary [facility] Medical Records Department [address] [place] [address] Emergency Department Summary 02/02/25 MR#: [id number] Acct: [id number] Name: ALDAIR YEPEZ Rep #: [id number] : 1995 30 From: Jak Bates DO [...] intact Psych: Cooperative, appropriate mood and affect PFSH PFSH Medical History Anxiety Chewing tobacco use Hx [...] Care Provider: Caryl Green Referrals: Caryl Green, PA [Primary Care Provider] - 3-5 Days Activity Restrictions/Additional Instructions: Please stay away from raccoons. Follow-up with your primary care physician. You received your rabies immunoglobulin and vaccine here in the emergency department. You need to have recurrent rabies vaccines on day 3, day 7, day 14 from when you were bit. Print Language: Malian Disposition Disposition: Home, Self Care Discharge Date/Time: 02/02/25 04:25 What to do if you have Problems For any increased pain, shortness of breath, bleeding, nausea or vomiting, chest pain, or any unexpected problems, contact your Primary Care Provider. Call [facility] ([phone]) or report to the closest Emergency Room. Call 911 if necessary. 02/02/25 [phone] Cosigner Signature (if applicable): CC: SWATI Zhao Signed Normal [facility] CNOVon 08-02-2024 CNOV Office Visit (FAMPWS ) ALDAIR YEPEZ ([id number]) 1995 M Date Time Provider Department 08/02/24 10:20 AM [facility] During your visit today, we recorded [...] Relation Age of Onset Heart Maternal Grandfather [place] Hypertension Mother None Father Heart Maternal Uncle [...] Signed Prescri (more content not included)... Normal [facility] CNOVon 07-08-2024 CNOV Office Visit (WSTR ) LUCHOALDAIR Jaiden ([id number]) 1995 M Date Time Provider Department 07/08/24 7:30 AM CLARENCE GILES [facility] During your visit today, we recorded the following information about you: Temperature Pulse Respiration Blood pressure 98.8 degrees 90/minute 16/minute 108/64 Weight 133.9 kg Clarence Giles APRN.COMB TENDER 07/08/2024 8:02 AM Signed Subjective HPI Nontoxic-appearing [...] Relation Age of Onset Heart Maternal Grandfather [place] Hypertension Mother None Father Heart Maternal Uncle [...] He is (more content not included)... Normal [facility] STREP A MOLECULAR (POC)on Interpretation and review of laboratory results Abnormal [facility] Procedural Control Valid [facility] Strep A (POCT) Positive Abnormal Negative [facility] CNOVon 05-29-2024 CNOV Office Visit (UCWSTR ) ALDAIR YEPEZ ([id number]) 1995 M Date Time Provider Department 05/29/24 2:45 PM CASE CROSS [facility] During your visit today, we recorded the following information about you: Temperature Pulse Respiration Blood pressure 97.8 degrees 80/minute 16/minute 112/78 Weight 133.9 kg Case Cross APRN.CNP 05/29/2024 3:04 PM Signed This note was created using Sportodyriter. Subjective Aldair Yepez is a 29 year [...] antibiotics. - AMOXICILLIN 875 MG TABLET Case Cross APRN.VINITA Allergies As of Date: 05/29/2024 (No Known Allergies) Date Reviewed: 05/29/2024 Reviewed by: Case Cross APRN.COMB TENDER - Fully Assessed Reason for Visit: Ear Pain [817] Cmt: Bilateral ear pain and ST x 2 days Primary Visit Diagnosis:Sore throat [J02.9] Other Visit Diagnosis:Acute otitis media, right [H66.91] Order(s):STREP A MOLECULAR (POC) [5936633] Order #: [id number]. #:[id number] amoxicillin (AMOXIL) 875 mg tabletTake 1 [...] for 7 days. Encounter Status:Closed by CASE CROSS on 05/29/24 [facility] STREP A MOLECULAR (POC)on Procedural Control Valid [facility] Strep A (POCT) Negative Negative [facility] CNOVon 11-13-2023 CNOV Office Visit (UCWSTR ) ALDAIR YEPEZ ([id number]) 1995 M Date Time Provider Department 11/13/23 6:00 PM ZULEYMA ALDANA [facility] During your visit today, we recorded the following information about you: Temperature Pulse Respiration Blood pressure 98 degrees 77/minute 21/minute 124/68 Weight 134.1 kg Zuleyma Aldana APRN.COMB TENDER 11/13/2023 6:24 PM Signed Subjective HPI Aldair [...] Relation Age of Onset Heart Maternal Grandfather [place] Hypertension Mother None Father Heart Maternal Uncle [...] go to ER as advised. Zuleyma Aldana APRN.COMB TENDER Allergies As of Date: 11/13/2023 (No Known [...] LOCKHART (nonalcoholic (more content not included)... Normal [facility] CNOVon 08-09-2023 CNOV Office Visit (FAMPWS ) ALDAIR YEPEZ ([id number]) 1995 M Date Time Provider Department 08/09/23 [...] and a maternal grandfather who of a [place] in either his 40-50's. Past medical history, [...] Relation Age of Onset Heart Maternal Grandfather [place] Hypertension Mother None Father Heart Maternal Uncle [...] distress, well-hydrated (more content not included)... Normal [facility] XR RIBS/CHEST 3V AP RIB/OBLS /CXR LEFTon 03-04-2023 [facility] XR Ribs - left Views and Anai st PAon 03-04-2023 IMPRESSION: No evide nce of acute left rib fracture. Chef De Froid: PSCB Transcribe Date/Time: Mar 04 2023 10:43A Dictated by : ELINA TORRES MD This examination was interpreted and the report reviewed and electronically signed by: ELINA TORRES MD on Mar 04 2023 10:45AM [facility] DIVISION OF RADIOLOGY * * *Final Report* [...] lungs appear normal. DIVISION OF RADIOLOGY Provider, [facility] - 03/04/2023 * * *Final Report* * [...] No evidence of acute left rib fracture. Chef De Froid: RICARDO Transcribe Date/Time: Mar 04 2023 10:43A Dictated by : ELINA TORRES MD This examination was interpreted and the report reviewed and electronically signed by: ELINA TORRES MD on Mar 04 2023 10:45AM EST [facility] Radiology Study observation (narrative) [facility] XR Ribs - left Views and Anai st PAOrdered By: Ccf Provider on 03-04-2023 [facility] HbA1c (Bld)on 03-02-2023 Average glucose Estimated from glycated hemoglobin (Bld) [Mass/Vol] 108 mg/dL [facility] HbA1c (Bld) [Mass fraction] 5.4 % 4.3 - 5.6 % [facility] Hepatic function 2000 panelo n 03-02-2023 Albumin [Mass/Vol] 4.3 g/dL 3.9 - 4.9 g/dL [facility] ALP [Catalytic activity/Vol] 71 U/L 38 - 113 U/L [facility] ALT [Catalytic activity/Vol] 73 U/L High 10 - 54 U/L [facility] AST [Catalytic activity/Vol] 51 U/L High 14 - 40 U/L [facility] Bilirubin [Mass/Vol] 0.4 mg/dL 0.2 - 1.3 mg/dL [facility] Bilirubin.conjuga mary alice [Mass/Vol] <0.2 mg/dL [facility] Protein [Mass/Vol] 6.8 g/dL 6.3 - 8.0 g/dL [facility] LIPID PANEL, NONFASTINGon Cholesterol [Mass/Vol] 171 mg/dL <200 mg/dL [facility] HDL Cholesterol, Nonfasting 39 mg/dL Low >39 mg/dL [facility] LDL Cholesterol, Nonfasting 103 mg/dL High <100 mg/dL [facility] LDL/HDL Ratio, Nonfasting 2.64 mg/dL High <2.54 mg/dL [facility] Non HDL Cholesterol, Nonfasting 132 mg/dL High <130 mg/dL [facility] Total Chol/HDL Ratio, Nonfasting 4.38 mg/dL <5.10 mg/dL [facility] Triglycerides, Nonfasting 144 mg/dL <150 mg/dL [facility] VLDL Cholesterol, Nonfasting 29 mg/dL <30 mg/dL [facility] TSH BLDon 03-02-2023 TSH Qn 2.130 m[IU]/L 0.270 - 4.200 mIU/L [facility] CBC W Auto Differential pane l (Bld)on 03-01-2023 Basophils (Bld) [#/Vol] 0.08 10*3/uL <0.11 k/uL [facility] Basophils/100 WBC (Bld) 1.0 % [facility] Differential cell count method Nom (Bld) Auto [facility] Eosinophils (Bld) [#/Vol] 0.33 10*3/uL <0.46 k/uL [facility] Eosinophils/100 WBC (Bld) 4.3 % [facility] Erythrocyte distribution width (RBC) [Ratio] 13.7 % 11.5 - 15.0 % [facility] Hematocrit (Bld) [Volume fraction] 46.8 % 39.0 - 51.0 % [facility] Hemoglobin (Bld) [Mass/Vol] 15.3 g/dL 13.0 - 17.0 g/dL [facility] Immature granulocytes (Bld) [#/Vol] <0.10 k/uL [facility] Immature granulocytes/100 WBC (Bld) 0.3 % [facility] Lymphocytes (Bld) [#/Vol] 2.17 10*3/uL 1.00 - 4.00 k/uL [facility] Lymphocytes/100 WBC (Bld) 28.1 % [facility] MCH (RBC) [Entitic mass] 28.0 pg 26.0 - 34.0 pg [facility] MCHC (RBC) [Mass/Vol] 32.7 g/dL 30.5 - 36.0 g/dL [facility] MCV (RBC) [Entitic vol] 85.7 fL 80.0 - 100.0 fL [facility] Monocytes (Bld) [#/Vol] 0.76 10*3/uL <0.87 k/uL [facility] Monocytes/100 WBC (Bld) 9.8 % [facility] Neutrophils (Bld) [#/Vol] 4.37 10*3/uL 1.45 - 7.50 k/uL [facility] Neutrophils/100 WBC (Bld) 56.5 % [facility] Nucleated RBC (Bld) [#/Vol] <0.01 k/uL [facility] Nucleated RBC/100 WBC (Bld) [Ratio] 0.0 /100 WBC [facility] Platelet mean volume (Bld) [Entitic vol] 11.4 fL 9.0 - 12.7 fL [facility] Platelets (Bld) [#/Vol] 247 10*3/uL 150 - 400 k/uL [facility] RBC (Bld) [#/Vol] 5.46 10*6/uL 4.20 - 6.0 0 m/uL [facility] WBC (Bld) [#/Vol] 7.73 10*3/uL 3.70 - 11. 00 k/uL [facility] US ABD RIGHT UPPER QUADRANTo n 12-20-2022 [facility] STREP A MOLECULAR (POC)on Procedural Control Valid [facility] Strep A (POCT) Positive Abnormal Negative [facility] No Panel Informationon 05-09 [facility] XR SHOULDER GENERAL 3V OR MO RE AP/TRUE AP/OTHER LEFTon 04-28-2022 [facility] Absolute lymphocyte counton 03-22-2022 Lymphocytes Auto (Unsp spec) [#/Vol] 1.76 10*3/uL 0.83-4.51 [facility] Work Phone: Basophil percentageon 2021 Basophils/100 WBC (Bld) 0.6 % 0-1 [facility] Work Phone: Bilirubin [Mass/Vol] 0.40 mg/dL 0.20-1.00 [facility] Work Phone: Comment on above: For patients on eltr ombopag therapy, use of Dimension [place] TBIL is not recommended. Chloride [Moles/Vol] 105 mmol/L 98-107 [facility] Work Phone: Eosinophils/100 WBC (Bld) 8.4 % 0-5 [facility] Work Phone: Glucose [Mass/Vol] 94 mg/dL 74-106 [facility] Work Phone: Neutrophils (Bld) [#/Vol] 5.9 10*3/uL 2.0-7.7 [facility] Work Phone: [phone] Neutrophils/100 WBC (Bld) 61.0 % 47-70 [facility] Work Phone: [phone] Potassium [Moles/Vol] 4.2 mmol/L 3.5-5.1 [facility] Work Phone: [phone] Protein [Mass/Vol] 7.8 g/dL 6.4-8.2 [facility] Work Phone: Sodium [Moles/Vol] 140 mmol/L 136-145 [facility] Work Phone: WBC (Bld) [#/Vol] 9.6 10*3/uL 4.4-11.0 [facility] Work Phone: Blood erythrocytes count (nu mber/volume)on 03-22-2022 RBC (Bld) [#/Vol] 4.89 10*6/uL 4.6-6.2 [facility] Work Phone: [phone] Blood hemoglobin measurement (mass/volume)on 03-22-2022 Hemoglobin (Bld) [Mass/Vol] 14.5 g/dL 13.0-16.5 [facility] Work Phone: Blood lymphocytes/100 leukoc yteson 03-22-2022 Lymphocytes/100 WBC (Bld) 18.3 % 19-41 [facility] Work Phone: Blood monocytes/100 leukocyt eson 03-22-2022 Monocytes/100 WBC (Bld) 11.3 % 0-10 [facility] Work Phone: Blood platelet mean volumeon 03-22-2022 Platelet mean volume (Bld) [Entitic vol] 10.2 fL 6.2-12.0 [facility] Work Phone: Determination of erythrocyte mean corpuscular volume (MCV)on 03-22-2022 MCV (RBC) [Entitic vol] 90.6 fL 80-94 [facility] Work Phone: [phone] Hematocrit Auto (Bld) [Volum e fraction]on 03-22-2022 Hematocrit (Bld) [Volume fraction] 44.3 % 40-54 [facility] Work Phone: [phone] Laboratory - Chemistry and C hemistry - challengeon 03-22-2022 ALP [Catalytic activity/Vol] 96 U/L 45-117 [facility] Work Phone: [phone] ALT [Catalytic activity/Vol] 77 U/L 16-61 [facility] Work Phone: [phone] CO2 [Moles/Vol] 28.0 mmol/L 21.0-32.0 [facility] Work Phone: [phone] Globulin (S) [Mass/Vol] 4.2 g/dL 2.2-4.2 [facility] Work Phone: [phone] Urea nitrogen/Creatini ne [Mass ratio] 12.6 mg/mg 10-20 [facility] Work Phone: [phone] Laboratory - Hematology and Cell countson 03-22-2022 Erythrocyte distribution width (RBC) [Entitic vol] 45.1 fL 35.1-43.9 [facility] Work Phone: [phone] Erythrocyte distribution width (RBC) [Ratio] 13.5 % 11.6-14.6 [facility] Work Phone: [phone] Immature granulocytes/100 WBC (Bld) 0.400 % 0.0-0.9 [facility] Work Phone: [phone] Comment on above: IG% - Immature Granu locytes (promyelocytes, myelocytes and metamyelocytes) > 1% indicates that a LEFT SHIFT is Present. MCH (RBC) [Entitic mass] 29.7 pg 27.0-32.0 [facility] Work Phone: [phone] Nucleated RBC/100 WBC (Bld) [Ratio] 0 % 0-5 [facility] Work Phone: [phone] MCHC Auto (RBC) [Mass/Vol]on 03-22-2022 MCHC (RBC) [Mass/Vol] 32.7 g/dL 32-36 [facility] Work Phone: No Panel Informationon 03-22 Estimated GFR (MDRD) Amer 111 mL/min >60 [facility] Work Phone: Comment on above: GFR Calc Estimated GFR (MDRD) Non-Af Amer 92 mL/min >60 [facility] Work Phone: Comment on above: Non- GFR Calc Platelets bldon 03-22-2022 Platelets (Bld) [#/Vol] 262 10*3/uL 150-450 [facility] Work Phone: Serum or plasma albumin benigno urement (mass/volume)on 03-22-2022 Albumin [Mass/Vol] 3.6 g/dL 3.2-5.0 [facility] Work Phone: Serum or plasma albumin/glob ulin mass ratioon 03-22-2022 Albumin/Globulin [Mass ratio] 0.9 {ratio} 0.9-2.4 [facility] Work Phone: Serum or plasma calcium benigno urement (mass/volume)on 03-22-2022 Calcium [Mass/Vol] 9.0 mg/dL 8.5-10.1 [facility] Work Phone: Serum or plasma creatinine m easurement (mass/volume)on 03-22-2022 Creatinine [Mass/Vol] 1.03 mg/dL 0.70-1.30 [facility] Work Phone: Comment on above: The validity of the calculated GFR & GFRAA in patients over 70 years has not been determined. Clinical correlation is essential. Serum or plasma urea nitroge n measurement (mass/volume)on 03-22-2022 Urea nitrogen [Mass/Vol] 13 mg/dL 7-18 [facility] Work Phone: Thin prep Papanicolaou smear with manual screeningon 03-22-2022 Thin prep Papanicolaou smear with manual screening 38 U/L 15-37 [facility] Work Phone: [phone] Thin prep Papanicolaou smear with manual screening 7 5-15 [facility] Work Phone: UA DIP, URINE (POC)on 2021 BILIRUBIN UA (POCT) Negative Negative [facility] CLARITY UA (POCT) Cloudy [facility] COLOR UA (POCT) [facility] GLUCOSE UA (POCT) Negative Negative mg/dL [facility] HEMOGLOBIN/BLOOD UA (POCT) Large Abnormal Negative [facility] KETONE UA (POCT) Negative Negative mg/dL [facility] LEUKOCYTES UA (POCT) Large Abnormal Negative [facility] NITRITE UA (POCT) Positive Abnormal Negative [facility] PH UA (POCT) 5.5 4.5 - 8.0 [facility] Protein Ql (U) 100 mg/dL Abnormal Negative mg/dL [facility] SPECIFIC GRAVITY UA (POCT) >=1.030 1.005 - 1.030 [facility] UROBILINOGEN UA (POCT) 0.2 E.U./dL Normal E.U./dL [facility] Vital Signs Date Time Vital Sign Value Performing Clinician Facility 02-09-2025 12:33-0400 Body height 187.96 cm Caryl LONGORIA Work Phone: [facility] 02-09-2025 12:33-0400 Body mass index (BMI) [Ratio] 29.4 kg/m2 Caryl LONGORIA Work Phone: [facility] 02-09-2025 12:33-0400 Body temperature 98 [degF] Caryl LONGORIA Work Phone: [facility] 02-09-2025 12:33-0400 Body weight 103.82 kg Caryl LONGORIA Work Phone: [facility] 02-09-2025 12:33-0400 Diastolic blood pressure 80 mm[Hg] Caryl LONGORIA Work Phone: [facility] 02-09-2025 12:33-0400 Heart rate 60 /min Caryl LONGORIA Work Phone: [facility] 02-09-2025 12:33-0400 Respiratory rate 16 /min Caryl LONGORIA Work Phone: [phone] [place] [address] 02-09-2025 12:33-0400 SaO2% (BldA) [Mass fraction] 100 % Caryl Green PA Work Phone: [phone] [place] [address] 02-09-2025 12:33-0400 Systolic blood pressure 130 mm[Hg] Caryl Green PA Work Phone: [phone] [place] [address] 02-05-2025 14:010400 Body weight 147.55 kg Caryl Green PA Work Phone: [phone] [place] [address] 02-05-2025 13:12-0400 Body height 187.96 cm Caryl Green PA Work Phone: [phone] [place] [address] 02-05-2025 13:12-0400 Body mass index (BMI) [Ratio] 41.8 kg/m2 Caryl Green PA Work Phone: [phone] [place] [address] 02-05-2025 13:12-0400 Body temperature 98.4 [degF] Caryl Green PA Work Phone: [phone] [place] [address] 02-05-2025 13:12-0400 Diastolic blood pressure 91 mm[Hg] Caryl Green PA Work Phone: [phone] [place] [address] 02-05-2025 13:12-0400 Heart rate 81 /min Caryl Green PA Work Phone: [phone] [place] [address] 02-05-2025 13:12-0400 Respiratory rate 18 /min Caryl Green PA Work Phone: [phone] [place] [address] 02-05-2025 13:12-0400 SaO2% (BldA) [Mass fraction] 99 % Caryl Green PA Work Phone: [phone] [place] [address] 02-05-2025 13:12-0400 Systolic blood pressure 131 mm[Hg] Caryl Green PA Work Phone: [phone] [place] [address] 2025 04:24-0400 Body temperature 97.8 [degF] Caryl Green PA Work Phone: [phone] [place] [address] 2025 04:24-0400 Diastolic blood pressure 87 mm[Hg] Caryl Green PA Work Phone: [facility] 2025 04:24-0400 Heart rate 81 /min Carly Green PA Work Phone: [facility] 2025 04:24-0400 Respiratory rate 16 /min Caryl Green PA Work Phone: [facility] 2025 04:24-0400 SaO2% (BldA) [Mass fraction] 99 % Caryl Green PA Work Phone: [facility] 2025 04:24-0400 Systolic blood pressure 125 mm[Hg] Caryl Green PA Work Phone: [facility] 02-01-2025 23:51-0400 Body height 187.96 cm Caryl Green PA Work Phone: [facility] 02-01-2025 23:51-0400 Body mass index (BMI) [Ratio] 42.8 kg/m2 Caryl Green PA Work Phone: [facility] 02-01-2025 23:51-0400 Body weight 151.45 kg Caryl Green PA Work Phone: [facility] 08-02-2024 10:25-0500 Body mass index (BMI) [Ratio] 37.59 kg/m2 Clarence Rodriguez MD Work Phone: [facility] 08-02-2024 10:25-0500 Body temperature 98.49 [degF] Clarence Rodriguez MD Work Phone: [facility] 08-02-2024 10:25-0500 Body weight 134.26 kg Clarence Rodriguez MD Work Phone: [facility] 08-02-2024 10:25-0500 Diastolic blood pressure 90 mm[Hg] Clarence Rodriguez MD Work Phone: [facility] 08-02-2024 10:25-0500 Heart rate 80 /min Clarence Rodriguez MD Work Phone: [facility] 08-02-2024 10:25-0500 Respiratory rate 18 /min Clarence Rodriguez MD Work Phone: [facility] 08-02-2024 10:25-0500 SaO2% (BldA) [Mass fraction] 97 % Clarence Rodriguez MD Work Phone: [facility] 08-02-2024 10:25-0500 Systolic blood pressure 118 mm[Hg] Clarence Rodriguez MD Work Phone: [facility] 07-08-2024 07:33-0500 Body mass index (BMI) [Ratio] 37.48 kg/m2 Clarence Giles SUPERVISOR [employer].COMB TENDER Work Phone: [facility] 07-08-2024 07:33-0500 Body temperature 98.8 [degF] Clarence Giles SUPERVISOR [employer].COMB TENDER Work Phone: [facility] 07-08-2024 07:33-0500 Body weight 133.87 kg Clarence Giles SUPERVISOR [employer].COMB TENDER Work Phone: [facility] 07-08-2024 07:33-0500 Diastolic blood pressure 64 mm[Hg] Clarence Giles SUPERVISOR [employer].COMB TENDER Work Phone: [facility] 07-08-2024 07:33-0500 Heart rate 90 /min Clarence Giles SUPERVISOR [employer].COMB TENDER Work Phone: [facility] 07-08-2024 07:33-0500 Respiratory rate 16 /min Clarence Giles SUPERVISOR [employer].COMB TENDER Work Phone: [facility] 07-08-2024 07:33-0500 SaO2% (BldA) [Mass fraction] 97 % Clarence Giles SUPERVISOR [employer].COMB TENDER Work Phone: [facility] 07-08-2024 07:33-0500 Systolic blood pressure 108 mm[Hg] Clarence Giles SUPERVISOR [employer].COMB TENDER Work Phone: [facility] 05-29-2024 14:46-0500 Body mass index (BMI) [Ratio] 37.49 kg/m2 Case Moomaw SUPERVISOR [employer]ISH[employer].COMB TENDER Work Phone: [facility] 05-29-2024 14:46-0500 Body temperature 97.81 [degF] Case Moomaw SUPERVISOR [employer]ISH[employer].COMB TENDER Work Phone: [facility] 05-29-2024 14:46-0500 Body weight 133.9 kg Case Moomaw SUPERVISOR [employer].COMB TENDER Work Phone: [facility] 05-29-2024 14:46-0500 Diastolic blood pressure 78 mm[Hg] Case Moomaw SUPERVISOR [employer]ISH[employer].COMB TENDER Work Phone: [facility] 05-29-2024 14:46-0500 Heart rate 80 /min Case Moomaw SUPERVISOR [employer].COMB TENDER Work Phone: [facility] 05-29-2024 14:46-0500 Respiratory rate 16 /min Case Moomaw SUPERVISOR [employer].COMB TENDER Work Phone: [facility] 05-29-2024 14:46-0500 SaO2% (BldA) [Mass fraction] 97 % Case Moomaw SUPERVISOR [employer].COMB TENDER Work Phone: [facility] 05-29-2024 14:46-0500 Systolic blood pressure 112 mm[Hg] Case Moomaw SUPERVISOR [employer].COMB TENDER Work Phone: [facility] 11-13-2023 19:16-0400 Body temperature 97.9 [degF] [facility] 11-13-2023 19:16-0400 Diastolic blood pressure 74 mm[Hg] [facility] 11-13-2023 19:16-0400 Heart rate 80 /min [facility] 11-13-2023 19:16-0400 Respiratory rate 16 /min [facility] 11-13-2023 19:16-0400 SaO2% (BldA) [Mass fraction] 97 % [facility] 11-13-2023 19:16-0400 Systolic blood pressure 130 mm[Hg] [facility] 11-13-2023 18:28-0400 Body height 188.01 cm [facility] 11-13-2023 18:28-0400 Body mass index (BMI) [Ratio] 37.8 kg/m2 [facility] 11-13-2023 18:28-0400 Body weight 133.94 kg [facility] 11-13-2023 18:02-0400 Body mass index (BMI) [Ratio] 37.54 kg/m2 Zuleyma Praisler-Wood SUPERVISOR [employer]ISH[employer].COMB TENDER Work Phone: [facility] 11-13-2023 18:02-0400 Body temperature 98.01 [degF] Zuleyma Praisler-Wood SUPERVISOR [employer]CR[employer] FINISHING.COMB TENDER Work Phone: [facility] 11-13-2023 18:02-0400 Body weight 134.1 kg Zuleyma Praisler-Wood SUPERVISOR [employer]CR[employer] FINISHING.COMB TENDER Work Phone: [facility] 11-13-2023 18:02-0400 Diastolic blood pressure 68 mm[Hg] Zuleyma Praisler-Wood SUPERVISOR [employer]CR[employer] FINISHING.COMB TENDER Work Phone: [facility] 11-13-2023 18:02-0400 Heart rate 77 /min Zuleyma Praisler-Wood SUPERVISOR [employer]CR[employer] FINISHING.COMB TENDER Work Phone: [facility] 11-13-2023 18:02-0400 Respiratory rate 21 /min Zuleyma Praisler-Wood SUPERVISOR [employer]CR[employer] FINISHING.COMB TENDER Work Phone: [facility] 11-13-2023 18:02-0400 SaO2% (BldA) [Mass fraction] 98 % Zuleyma Praisler-Wood SUPERVISOR [employer]CR[employer] FINISHING.COMB TENDER Work Phone: [facility] 11-13-2023 18:02-0400 Systolic blood pressure 124 mm[Hg] Zuleyma Praisler-Wood SUPERVISOR [employer] FINISHING.COMB TENDER Work Phone: [facility] 05-31-2023 18:22-0500 Body weight 125.65 kg Clarence Rodriguez MD Work Phone: [facility] 05-31-2023 18:22-0500 Diastolic blood pressure 74 mm[Hg] Clarence Rodriguez MD Work Phone: [facility] 11-08-2023 18:22-0500 Heart rate 62 /min Clarence Rodriguez MD Work Phone: [facility] 05-31-2023 18:22-0500 Respiratory rate 16 /min Clarence Rodriguez MD Work Phone: [facility] 05-31-2023 18:22-0500 Systolic blood pressure 114 mm[Hg] Clarence Rodriguez MD Work Phone: [facility] 04-20-2023 09:30-0400 Body temperature 97 [degF] Clarence Rodriguez MD Work Phone: [facility] 04-20-2023 09:30-0400 Body weight 125.19 kg Clarence Rodriguez MD Work Phone: [facility] 04-20-2023 09:30-0400 Diastolic blood pressure 64 mm[Hg] Clarence Rodriguez MD Work Phone: [facility] 04-20-2023 09:30-0400 Heart rate 58 /min Clarence Rodriguez MD Work Phone: [facility] 04-20-2023 09:30-0400 Respiratory rate 16 /min Clarence Rodriguez MD Work Phone: [facility] 04-20-2023 09:30-0400 Systolic blood pressure 110 mm[Hg] Clarence Rodriguez MD Work Phone: [facility] 03-04-2023 09:27-0400 Body temperature 97.39 [degF] Uma Barbara SUPERVISOR [employer]ISHING.COMB TENDER Work Phone: [facility] 03-04-2023 09:27-0400 Body weight 132.45 kg Uma Barbara SUPERVISOR [employer]CR[employer] FINISHING.COMB TENDER Work Phone: [facility] 03-04-2023 09:27-0400 Diastolic blood pressure 62 mm[Hg] Uma Barbara SUPERVISOR [employer]CR[employer] FINISHING.COMB TENDER Work Phone: [facility] 03-04-2023 09:27-0400 Heart rate 74 /min Uma Barbara SUPERVISOR [employer]CR[employer] FINISHING.COMB TENDER Work Phone: [facility] 03-04-2023 09:27-0400 Respiratory rate 16 /min Uma Jimenez SUPERVISOR [employer]CR[employer] FINISHING.COMB TENDER Work Phone: [facility] 03-04-2023 09:27-0400 SaO2% (BldA) [Mass fraction] 97 % Uma Jimenez SUPERVISOR [employer] FINISHING.COMB TENDER Work Phone: [facility] 03-04-2023 09:27-0400 Systolic blood pressure 112 mm[Hg] Uma Jimenez SUPERVISOR [employer] FINISHING.COMB TENDER Work Phone: [facility] 03-01-2023 16:09-0400 Body weight 132.9 kg Clarence Rodriguez MD Work Phone: [facility] 03-01-2023 16:09-0400 Diastolic blood pressure 84 mm[Hg] Clarence Rodriguez MD Work Phone: [facility] 03-01-2023 16:09-0400 Heart rate 70 /min Clarence Rodriguez MD Work Phone: [facility] 03-01-2023 16:09-0400 Respiratory rate 16 /min Clarence Rodriguez MD Work Phone: [facility] 03-01-2023 16:09-0400 Systolic blood pressure 122 mm[Hg] Clarence Rodriguez MD Work Phone: [facility] 10-19-2022 09:22-0400 Body temperature 98.01 [degF] Josselyn Hay SUPERVISOR [employer]CR[employer] FINISHING.COMB TENDER Work Phone: [facility] 10-19-2022 09:22-0400 Body weight 156.67 kg Josselyn Hay SUPERVISOR [employer]CR[employer] FINISHING.COMB TENDER Work Phone: [facility] 10-19-2022 09:22-0400 Diastolic blood pressure 84 mm[Hg] Josselyn Hay SUPERVISOR [employer]CR[employer] FINISHING.COMB TENDER Work Phone: [facility] 10-19-2022 09:22-0400 Heart rate 102 /min Josselyn Hay SUPERVISOR [employer]CR[employer] FINISHING.COMB TENDER Work Phone: [facility] 10-19-2022 09:22-0400 Respiratory rate 18 /min Josselyn Hay SUPERVISOR [employer]CR[employer] FINISHING.COMB TENDER Work Phone: [facility] 10-19-2022 09:22-0400 SaO2% (BldA) [Mass fraction] 97 % Josselyn Hay SUPERVISOR [employer]CR[employer] FINISHING.COMB TENDER Work Phone: [facility] 10-19-2022 09:22-0400 Systolic blood pressure 122 mm[Hg] Josselyn Hay SUPERVISOR [employer]CR[employer] FINISHING.COMB TENDER Work Phone: [facility] 03-22-2022 13:46-0400 Body weight 151.05 kg Nae Domínguez SUPERVISOR [employer]CR[employer] FINISHING.COMB TENDER Work Phone: [facility] 03-22-2022 13:46-0400 Diastolic blood pressure 100 mm[Hg] Nae Chaudhariagen SUPERVISOR [employer]CR[employer] FINISHING.COMB TENDER Work Phone: [facility] 03-22-2022 13:46-0400 Heart rate 98 /min Nae Domínguez SUPERVISOR [employer]CR[employer] FINISHING.COMB TENDER Work Phone: [facility] 03-22-2022 13:46-0400 Respiratory rate 18 /min Nae Domínguez SUPERVISOR [employer]CR[employer] FINISHING.COMB TENDER Work Phone: [facility] 03-22-2022 13:46-0400 SaO2% (BldA) [Mass fraction] 98 % Nae Domínguez SUPERVISOR [employer]CR[employer] FINISHING.COMB TENDER Work Phone: [facility] 03-22-2022 13:46-0400 Systolic blood pressure 146 mm[Hg] Nae Domínguez SUPERVISOR [employer]CR[employer]E [employer] FINISHING.COMB TENDER Work Phone: [facility] 03-15-2022 11:19-0400 Body height 187.96 cm [facility] Work Phone: 03-15-2022 11:19-0400 Body mass index (BMI) [Ratio] 43.4 kg/m2 [facility] Work Phone: 03-15-2022 11:19-040 Body temperature 97.9 [degF] [facility] Work Phone: 03-15-2022 11:19-0400 Body weight 153.31 kg [facility] Work Phone: 03-15-2022 11:19-0400 Diastolic blood pressure 96 mm[Hg] [facility] Work Phone: 03-15-2022 11:19-0400 Heart rate 89 /min [facility] Work Phone: 03-15-2022 11:19-0400 Respiratory rate 18 /min [facility] Work Phone: 03-15-2022 11:19-0400 SaO2% (BldA) [Mass fraction] 98 % [facility] Work Phone: 03-15-2022 11:19-0400 Systolic blood pressure 148 mm[Hg] [facility] Work Phone: 03-15-2022 11:00-0400 Body temperature 97.5 [degF] Adriana Gutierres SUPERVISOR [employer] FINISHING.COMB TENDER Work Phone: [facility] 03-15-2022 11:00-0400 Body weight 153.77 kg Adriana Gutierres SUPERVISOR [employer]CR[employer] FINISHING.COMB TENDER Work Phone: [facility] 03-15-2022 11:00-0400 Diastolic blood pressure 82 mm[Hg] Adriana Gutierres SUPERVISOR [employer]CR[employer] FINISHING.COMB TENDER Work Phone: [facility] 03-15-2022 11:00-0400 Heart rate 94 /min Adriana Gutierres SUPERVISOR [employer]CR[employer] FINISHING.COMB TENDER Work Phone: [facility] 03-15-2022 11:00-0400 Respiratory rate 16 /min Adriana Gutierres SUPERVISOR [employer]CR[employer] FINISHING.COMB TENDER Work Phone: [facility] 03-15-2022 11:00-0400 SaO2% (BldA) [Mass fraction] 97 % Adriana Gutierres SUPERVISOR [employer]CR[employer] FINISHING.COMB TENDER Work Phone: [facility] 03-15-2022 11:00-0400 Systolic blood pressure 128 mm[Hg] Adriana Gutierres SUPERVISOR [employer]CR[employer] FINISHING.COMB TENDER Work Phone: [facility] 02-13-2022 19:51-0400 Body height 187.96 cm [facility] Work Phone: 02-13-2022 19:51-0400 Body mass index (BMI) [Ratio] 43.2 kg/m2 [facility] Work Phone: 02-13-2022 19:51-0400 Body temperature 94 [degF] [facility] Work Phone: 02-13-2022 19:51-0400 Body weight 153 kg [facility] Work Phone: 02-13-2022 19:51-0400 Diastolic blood pressure 95 mm[Hg] [facility] Work Phone: 02-13-2022 19:51-0400 Heart rate 95 /min [facility] Work Phone: 02-13-2022 19:51-0400 Respiratory rate 16 /min [facility] Work Phone: 02-13-2022 19:51-0400 SaO2% (BldA) [Mass fraction] 98 % [facility] Work Phone: 02-13-2022 19:51-0400 Systolic blood pressure 147 mm[Hg] [facility] Work Phone: 12-15-2021 12:02-0400 Body temperature 98.1 [degF] Caryl Green PA-C Work Phone: [facility] 12-15-2021 12:02-0400 Body weight 150.59 kg Caryl Green PA-C Work Phone: [facility] 12-15-2021 12:02-0400 Diastolic blood pressure 86 mm[Hg] Caryl Green PA-C Work Phone: [facility] 12-15-2021 12:02-0400 Heart rate 76 /min Caryl Green PA-C Work Phone: [facility] 12-15-2021 12:02-0400 Respiratory rate 18 /min Caryl Green PA-C Work Phone: [facility] 12-15-2021 12:02-0400 Systolic blood pressure 116 mm[Hg] Caryl Green PA-C Work Phone: [facility] Encounters Encounter Date Encounter Type Care Provider Facility Start: 02-09-2025 End: 02-09-2025 Emergency department patient visit Caryl LONGORIA Work Phone: -Emergency Department Work Phone: Start: 02-09-2025 End: 02-09-2025 ambulatory Jak Bates Facility:[facility] Start: 02-05-2025 End: 02-05-2025 Emergency department patient visit Caryl LONGORIA Work Phone: -Emergency Department Work Phone: Start: 02-05-2025 End: 02-05-[address] Jak Bates DO -Emergency Department Work Phone: Start: 02-05-2025 End: 02-05-2025 ambulatory Caryl LONGORIA Facility:[facility] Start: 02-01-2025 End: 2025 Emergency department patient visit Caryl LONGORIA Work Phone: -Emergency Department Work Phone: Start: 08-02-2024 End: 08-02-2024 ambulatory CLARENCE RODRIGUEZ Facility:[facility] Start: 08-02-2024 End: 08-02-2024 Patient encounter procedure Clarence Rodriguez MD Work Phone: [facility] [place] Comment on above: Tonsillitis (Primary Dx); Pharyngitis, unspecified etiology Start: 07-08-2024 End: 07-08-2024 ambulatory CLARENCE RODRIGUEZ Facility:[facility] Start: 07-08-2024 End: 07-08-2024 Office outpatient visit 25 minutes Clarence Giles APRN.CNP Work Phone: [facility] Comment on above: Sore throat (Primary Dx); Strep pharyngitis Start: 05-29-2024 End: 05-29-2024 ambulatory CLARENCE RODRIGUEZ Facility:[facility] Start: 05-29-2024 End: 05-29-2024 Patient encounter procedure Case Cross BLAKE.COMB TENDER Work Phone: [facility] Comment on above: Sore throat (Primary Dx); Acute otitis media, right Start: 11-13-2023 End: 11-13-2023 Emergency department patient visit [facility] Work Phone: Start: 11-13-2023 End: 11-13-2023 ambulatory CLARENCE RODRIGUEZ Facility:[facility] Start: 11-13-2023 End: 11-13-2023 Patient encounter procedure Zuleyma Jovan SUPERVISOR [employer] FINISHING.COMB TENDER Work Phone: [facility] Comment on above: Exposure to blood (P rimary Dx) Start: 08-09-2023 End: 08-09-2023 ambulatory CLARENCE RODRIGUEZ Facility:[facility] Start: 05-31-2023 End: 05-31-2023 Patient encounter procedure Clarence Rodriguez MD Work Phone: [facility] Comment on above: GERD without esophag itis (Primary Dx); Encounter for immunization Start: 05-19-2023 Non-patient / Non-visit SWATI LONGORIA Work Phone: [facility] Start: 05-19-2023 End: 05-19-2023 ambulatory SWATI LONGORIA Work Phone: [facility] Work Phone: Start: 05-19-2023 End: 05-19-2023 Patient encounter procedure SWATI LONGORIA Work Phone: [facility] Work Phone: Start: 05-03-2023 ambulatory Clarence miller MD Work Phone: [facility] Comment on above: Wait time Start: 04-20-2023 End: 04-20-2023 Patient encounter procedure Clarence Rodriguez MD Work Phone: [facility] Comment on above: Atypical chest pain (Primary Dx); GERD without esophagitis; Family history of early CAD Start: 04-05-2023 ambulatory Clarence miller MD Work Phone: Family [facility] [place] Comment on above: Stomach meds Start: 03-04-2023 End: 03-04-2023 Subsequent hospital visit by physician Mojgan [facility] Work Phone: Radiology Comment on above: Rib pain on left cristóbal e [R07.81] Start: 03-04-2023 End: 03-04-2023 Patient encounter procedure Uma Jimenez APRN.COMB TENDER Work Phone: [facility] Comment on above: Rib pain on left cristóbal e (Primary Dx) Start: 03-03-2023 Telephone encounter Caryl mendoza PA-C Work Phone: Family [facility] [place] Comment on above: Results Start: 03-01-2023 End: 03-01-2023 Patient encounter procedure Clarence Rodriguez MD Work Phone: Family [facility] [place] Comment on above: Well adult exam ([facility] Dx); LOCKHART (nonalcoholic steatohepatitis); SANJAY (generalized anxiety disorder); Panic attack; Screening for diabetes mellitus; Elevated LFTs; GERD without esophagitis; Heat intolerance; Candidiasis Start: 03-01-2023 End: 03-01-2023 Patient encounter status Clarence Rodriguez MD Work Phone: [facility] Work Phone: Start: 01-05-2023 Refill Tayler hussein SUPERVISOR [employer] FINISHING.COMB TENDER Work Phone: Psychiatry Comment on above: Refill Request Start: 12-21-2022 Telephone encounter Caryl mendoza PA-C Work Phone: Family [facility] [place] Comment on above: Results Start: 12-20-2022 End: 12-20-2022 Subsequent hospital visit by physician [facility] Work Phone: Radiology Comment on above: Elevated LFTs [R79.8 9] Start: 11-02-2022 Refill Tayler hussein SUPERVISOR [employer] FINISHING.COMB TENDER Work Phone: Psychiatry Comment on above: Refill Request Start: 10-19-2022 End: 10-19-2022 Patient encounter procedure Josselyn Hay SUPERVISOR [employer] FINISHING.COMB TENDER Work Phone: [facility] Comment on above: Sorethroat (Primary Dx) Start: 09-09-2022 End: 09-09-2022 [facility] Tayler J Rajguru SUPERVISOR [employer]CR[employer]ONE FINISHING.COMB TENDER Work Phone: Psychiatry Comment on above: Panic disorder witho ut agoraphobia (Primary Dx) Start: 08-04-2022 Refill Tayler J Rajgur u SUPERVISOR [employer]CR[employer]ONE FINISHING.COMB TENDER Work Phone: Psychiatry Comment on above: Refill Request Start: 07-15-2022 End: 07-15-2022 [facility] Tayler J Rajguru SUPERVISOR [employer]CR[employer]ONE FINISHING.COMB TENDER Work Phone: Psychiatry Comment on above: Panic disorder witho ut agoraphobia (Primary Dx) Start: 06-24-2022 Refill Tayler J Rajgur u SUPERVISOR [employer]CR[employer] FINISHING.COMB TENDER Work Phone: Psychiatry Comment on above: Refill Request Start: 05-10-2022 ambulatory Anuel Mckenna MD Work Phone: Orthopaedics Comment on above: Question regarding M RI SHOULDER WO IVCON LT Start: 05-09-2022 End: 05-09-2022 Subsequent hospital visit by physician Mri Radio [facility] (I-Stat/1.5t) Work Phone: Radiology Comment on above: Acute pain of left s houlder [M25.512] Start: 04-28-2022 End: 04-28-2022 Subsequent hospital visit by physician Xr [facility] Work Phone: Radiology Comment on above: Acute pain of left s houlder [M25.512] Start: 04-28-2022 End: 04-28-2022 Patient encounter procedure Anuel Mckenna MD Work Phone: Orthopaedics Comment on above: Acute pain of left s houlder (Primary Dx); Traumatic complete tear of left rotator cuff, initial encounter Start: 04-08-2022 Telephone encounter Nae berger APRN.COMB TENDER Work Phone: [facility] [place] Comment on above: Orders Start: 04-07-2022 End: 04-07-2022 ambulatory Cesar Slaughter PT [facility] Comment on above: Acute pain of left s houlder Start: 03-29-2022 ambulatory Nae Domínguez APRN.COMB TENDER Work Phone: [facility] [place] Comment on above: Physical therapy Start: 03-25-2022 Telephone encounter Nae berger APRN.COMB TENDER Work Phone: [facility] [place] Comment on above: Results Start: 03-23-2022 ambulatory Nae Domínguez APRN.COMB TENDER Work Phone: Family [facility] Comment on above: Pain relief Start: 03-22-2022 End: 03-22-2022 ambulatory [facility] Work Phone: Start: 03-22-2022 End: 03-22-2022 Patient encounter procedure [facility]-Cat Scan, [facility] Start: 03-22-2022 Telephone encounter Nae berger APRN.COMB TENDER Work Phone: [facility] Comment on above: Results Start: 03-22-2022 End: 03-22-2022 Office outpatient visit 25 minutes Nae Domínguez APRN.COMB TENDER Work Phone: [facility] Comment on above: Flank pain (Primary Dx); Acute cystitis with hematuria; Acute pain of left shoulder Start: 03-15-2022 End: 03-15-2022 Emergency department patient visit [facility]Emergency Department Start: 03-15-2022 End: 03-15-2022 Patient encounter procedure Adriana Bhavik SUPERVISOR [employer] FINISHING.COMB TENDER Work Phone: [facility] Comment on above: Injury of head, init ial encounter (Primary Dx); Accident caused by farm tractor, initial encounter Start: 02-21-2022 End: 02-21-2022 [facility] Tayler Gonsalez SUPERVISOR [employer]CR[employer]E [employer]ONE FINISHING.COMB TENDER Work Phone: Psychiatry Comment on above: Panic disorder witho ut agoraphobia (Primary Dx) Start: 02-13-2022 End: 02-13-2022 [facility] Start: 01-21-2022 End: 01-21-2022 Patient encounter procedure Grey Filippo CRISIS WORKER Work Phone: Psychology Comment on above: Severe anxiety (Prim sabrina Dx); Mild depression Start: 01-10-2022 Telephone encounter Grey Na ll CRISIS WORKER Work Phone: Psychology Comment on above: Consult ([facility] C alling) Start: 12-30-2021 Telephone encounter Grey Na ll CRISIS WORKER Work Phone: Psychology Comment on above: Consult ([facility] C alling) Start: 12-28-2021 Telephone encounter Grey Na ll CRISIS WORKER Work Phone: Psychology Comment on above: Consult ([facility] Pt Out reach F/U) Start: 12-27-2021 Telephone encounter Grey Na ll CRISIS WORKER Work Phone: Psychology Comment on above: Consult ([facility] Pt Out reach F/U) Start: 12-23-2021 Telephone encounter Clarence Rodriguez MD Work Phone: [facility] [place] Comment on above: Patient Question Start: 12-22-2021 Telephone encounter Grey Na ll CRISIS WORKER Work Phone: Psychology Comment on above: Consult (Initial [facility] W Pt Outreach) Start: 12-21-2021 Telephone encounter Clarence Rodriguez MD Work Phone: Family [facility] [place] Comment on above: Patient Update; Medi [...] 12-02-2021 Refill Clarence miller MD Work Phone: [facility] [place] Comment on above: Refill Request Refill Start: 03-19-2021 Patient encounter status Clarence Rodriguez MD Work Phone: [facility] Work Phone: Procedures Date Procedure Procedure Detail Performing Clinician Start: 07-08-2024 STREP A MOLECULAR (POC) Onel Chambers MD Work Phone: Start: 05-29-2024 STREP A MOLECULAR (POC) Adriana Gutierres SUPERVISOR [employer]CR[employer] FINISHING.COMB TENDER Work Phone: Start: 05-31-2023 INFLUENZA VACCINE, A GE 6 MO - 64 YR, QUADRIVALENT (AFLURIA, FLULAVAL, FLUZONE) Clarence Rodriguez MD Work Phone: Start: 03-04-2023 Radex ribs uni w/pos teroant ch minimum 3 views Uma Jimenez SUPERVISOR [employer] FINISHING.COMB TENDER Work Phone: Start: 12-20-2022 Us abdominal real [...] et rgnt auto w/o microscopy Nae Domínguez SUPERVISOR [employer]CR[employer]E [employer] FINISHING.COMB TENDER Work Phone: Start: 03-15-2022 X-ray of chest posteroanterior view Start: 03-15-2022 Plain X-ray of shoulder Start: 02-13-2022 Plain x-ray of hand Plan of Treatment Date Care Activity Detail Author Start: 02-14-2032 Urine microalbumin profile DTaP,Tdap,Td Vaccine (10 - Td or Tdap) [facility] Start: 01-04-2031 Urine microalbumin profile [facility] Start: 2025 [facility] Start: 03-24-2024 Covid-19 Vaccine () Covid-19 Vaccine ( season) [facility] Start: 03-24-2024 Covid-19 Vaccine ( season) Covid-19 Vaccine () [facility] Start: 03-24-2024 Influenza vaccination Influenza Vacc ine (#1) [facility] Start: 12-13-2023 COVID-19 VACCINE (#1) COVID-19 VACCI NE (#1) [facility] Comment on above: Postponed from 08/05 (Declined at this time) Start: 11-13-2023 [facility] Start: 11-13-2023 Hepatitis B surface antigen measurement [facility] Start: 11-13-2023 Hepatitis C antibody measurement [facility] Start: 07-24-2023 Behavioral Health Screening Behavioral Health Screening [facility] Start: 07-23-2023 DEPRESSION ASSESSMENT DEPRESSION ASS [facility] Comment on above: Postponed from 07/24 (Declined at this time) Start: 03-24-2023 Covid-19 Vaccine () Covid-19 Vaccine () [facility] Start: 03-24-2023 Influenza vaccination C [facility] Start: 12-21-2022 End: 02-20-2023 LIPID PANEL, NONFASTING LIPID PANEL, NONFASTING Lab Routine Fatty liver Encounter for lipid screening for cardiovascular disease Expected: 12/21/2022, Expires: 02/20/2023 [facility] Work Phone: Comment on above: Expected: 12/21/2022 , Expires: 02/20/2023 Start: 07-24-2022 [facility] Start: 03-24-2022 Influenza vaccination C [facility] Start: 03-22-2022 End: 05-22-2022 CBC W Auto Differential panel - Blood CBC + DIFF Lab STAT Flank pain Expected: 03/22/2022, Expires: 05/22/2022 [facility] Work Phone: Comment on above: Expected: 03/22/2022 , Expires: 05/22/2022 Start: 03-22-2022 End: 05-22-2022 Comprehensive metabolic 2000 panel - Serum or Plasma COMP METABOLIC PANEL Lab STAT Flank pain Expected: 03/22/2022, Expires: 05/22/2022 [facility] Work Phone: Comment on above: Expected: 03/22/2022 , Expires: 05/22/2022 Start: 01-04-2022 COVID-19 VACCINE (#1) COVID-19 VACCI NE (#1) [facility] Comment on above: Postponed from 02/02 (Declined at this time) Start: 01-04-2022 HEPATITIS C SCREENING HEPATITIS C [facility] Comment on above: Postponed from 02/02 (Declined at this time) Start: 07-24-2021 DEPRESSION ASSESSMENT DEPRESSION ASS ESSMENT [facility] Start: 2013 Depression Screening Depression Scre ening [facility] Start: 2013 HEPATITIS C SCREENING HEPATITIS C [facility] Start: 2009 PEDS TO ADULT TRANSITION ANNUAL ASSESSMENT PEDS TO ADULT TRANSITION ANNUAL ASSESSMENT [facility] Start: 2007 PEDS TO ADULT TRANSITION INITIAL DISCUSSION PEDS TO ADULT TRANSITION INITIAL DISCUSSION [facility] Start: 2006 HPV VACCINE (1 - Mal e 2-dose series) HPV VACCINE (1 - Male 2-dose series) [facility] Start: 02-03-2000 COVID-19 VACCINE (#1) COVID-19 VACCI NE (#1) [facility] Start: 1995 COVID-19 VACCINE (#1) COVID-19 VACCI NE (#1) [facility] Bacteria identified in Urine by Culture URINE CULTURE Microbiology Routine Flank pain 03/22/2022 2:36 PM EDT [facility] [facility] Work Phone: End: 04-21-2023 Ct abdomen & pelvis w/o contrast material CT ABD/PEL WO IVCON Radiology STAT Flank pain 1 Occurrences starting 03/22/2022 until 04/21/2023 [facility] Work Phone: Comment on above: 1 Occurrences starti ng 03/22/2022 until 04/21/2023 End: 04-20-2024 ECG COMPLETE ECG COMPLETE ECG Routine Atypical chest pain 1 Occurrences starting 04/20/2023 until 04/20/2024 [facility] Work Phone: Comment on above: 1 Occurrences starti ng 04/20/2023 until 04/20/2024 End: 04-20-2024 EXERCISE STRESS ECG (WITHOUT IMAGING) EXERCISE STRESS ECG (WITHOUT IMAGING) Cardiology Routine Atypical chest pain Family history of early CAD 1 Occurrences starting 04/20/2023 until 04/20/2024 [facility] Work Phone: Comment on above: 1 Occurrences starti ng 04/20/2023 until 04/20/2024 Hepatitis B virus surface IgG Ab [Presence] in Serum [facility] HIV 1+2 Ab+HIV1 p24 Ag [Presence] in Serum or Plasma by Immunoassay [facility] Patient Education [facility] Work Phone: Patient referral [facility] Work Phone: Urinalysis complete panel - Urine URINALYSIS, WITH MICROSCOPIC Lab Routine Flank pain 03/22/2022 2:36 PM EDT [facility] Work Phone: XR SHOULDER GENERAL 3V OR MORE AP/TRUE AP/OTHER LEFT XR SHOULDER GENERAL 3V OR MORE AP/TRUE AP/OTHER LEFT Radiology Routine Acute pain of left shoulder 04/28/2022 11:45 AM EDT [facility] Work Phone: [facility] Immunizations Immunization Date Immunization Notes Care Provider Fa [facility] 02-09-2025 rabies vaccine, for intramuscular injection Cayrl LONGORIA Work Phone: [facility] 02-05-2025 rabies vaccine, for intramuscular injection Caryl LONGORIA Work Phone: [facility] 2025 rabies immune globulin Patricia LONGORIA Work Phone: [facility] 2025 rabies vaccine, for intramuscular injection Caryl LONGORIA Work Phone: [facility] 2025 tetanus toxoid, redu yanira diphtheria toxoid, and acellular pertussis vaccine, adsorbed Caryl LONGORIA Work Phone: [facility] 05-31-2023 influenza, injectabl e, quadrivalent, contains preservative Clarence Rodriguez MD Work Phone: [facility] 05-31-2023 influenza virus vacc ine, unspecified formulation Xr [place] Work Phone: [facility] 02-13-2022 tetanus toxoid, redu yanira diphtheria toxoid, and acellular pertussis vaccine, adsorbed [facility] 01-04-2021 tetanus toxoid, redu yanira diphtheria toxoid, and acellular pertussis vaccine, adsorbed Clarence Rodriguez MD Work Phone: [facility] 06-14-2019 influenza virus vacc ine, unspecified formulation Clarence Rodriguez MD Work Phone: [facility] 05-24-2019 Influenza virus vaccine [facility] 05-14-2016 tetanus toxoid, redu yanira diphtheria toxoid, and acellular pertussis vaccine, adsorbed Clarence Rodriguez MD Work Phone: [facility] 01-31-2011 hepatitis A vaccine, unspecified formulation Clarence Rodriguez MD Work Phone: [facility] Work Phone: 02-18-2009 hepatitis A vaccine, unspecified formulation Clarence Rodriguez MD Work Phone: [facility] Work Phone: 02-18-2009 Meningococcal, MCV4, unspecified conjugate formulation(groups A, C, Y and W-135) Clarence Rodriguez MD Work Phone: [facility] Work Phone: 02-21-2006 tetanus toxoid, redu yanira diphtheria toxoid, and acellular pertussis vaccine, adsorbed Clarence Rodriguez MD Work Phone: [facility] Work Phone: 07-04-2003 influenza virus vacc ine, unspecified formulation Clarence Rodriguez MD Work Phone: [facility] Work Phone: 03-03-2000 diphtheria, tetanus toxoids and acellular pertussis vaccine Clarence Rodriguez MD Work Phone: [facility] Work Phone: 03-03-2000 measles, mumps and rubella virus vaccine Clarence Rodriguez MD Work Phone: [facility] Work Phone: 03-03-2000 poliovirus vaccine, inactivated Clarence Rodriguez MD Work Phone: [facility] Work Phone: 07-24-1997 Chicken Pox (disease) Alex Rodriguez MD Work Phone: [facility] Work Phone: 05-07-1996 diphtheria, tetanus toxoids and acellular pertussis vaccine Clarence Rodriguez MD Work Phone: [facility] Work Phone: 05-07-1996 haemophilus influenz ae type b vaccine, HbOC conjugate Clarence Rodriguez MD Work Phone: [facility] Work Phone: 02-28-1996 measles, mumps and rubella virus vaccine Clarence Rodriguez MD Work Phone: [facility] Work Phone: 1995 diphtheria, tetanus toxoids and acellular pertussis vaccine Clarence Rodriguez MD Work Phone: [facility] Work Phone: 1995 haemophilus influenz ae type b vaccine, HbOC conjugate Clarence Rodriguez MD Work Phone: [facility] Work Phone: 1995 hepatitis B vaccine, pediatric or pediatric/adolescent dosage Clarence Rodriguez MD Work Phone: [facility] Work Phone: 1995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 referral: [facility] Assessment (failed mental health tx, SANJAY,panic) [facility] encounter type: Telephone Encounter Attempts to Outreach: 9 attempts Referral made: Psychology - Internal Psychology-Internal referral type: ( calling for sooner appt, has appt on 01-21-22) Final Disposition: Care established with BH (Pt is sched with bh assessment on 01-21-22 at 9am virtual) Patient Discharged?: Yes Patient reported that caregiver was able to meet their needs today?: Yes Received a call from Pt's ,Tali, requesting sooner appt -wants to have Pt see psych commercial real estate appraiser without having to see [facility]HS[facility] -anxiety is getting worse BHSW sent msg to psych commercial real estate appraiser -her 1st available is mid to last January and was advised for Pt to keep bh assessment [facility]HSW contacted Pt's -informed her needs to keep bh assessment - requested to sched psych commercial real estate appraiser appt now -informed Pt will still need to keep bh assessment - agreed BHSW sent msg to psych commercial real estate appraiser -Pt is allowed to sched psych commercial real estate appraiser prior to completing bh assessment -if does not complete bh assessment psych commercial real estate appraiser appt will automatically be cancelled -contacted INOCENTE Clinton, to contact to sched with Tayler Gonsalez CNP -she agreed to contact BHSW contacted Pt's and informed of the above -she agreed BHSW pointed out due to needing financial clearance of each visit the appt may not be able to be scheduled MANSOOR De La Vega January 10, 2022 documented in this encounter [facility] 12-30-2021 Miscellaneous Notes Behavioral Health Social Work Progress Note Patient identified for [facility] from: PCP (Chu Zhao) Reason for referral: [facility] Assessment (failed mental health tx, SANJAY,panic) [facility] encounter type: Telephone Encounter Attempts to Outreach: 6 attempts Final Disposition: Resources given (12-30-21 informed needs to contact financial dept, insurance company to find covered network provider, gave hope [phone]) Patient Discharged?: Yes Patient reported that [...] tx his anxiety -offered following resource: [facility] [address] [place] [address] [facility] requested inform [facility] if she is able to get financial clearance or schedules an appt elsewhere. No further contact is indicated at this time MANSOOR De La Vega December 30, 2021 documented in this encounter [facility] 12-28-2021 Miscellaneous Notes Behavioral Health Social Work Progress Note Patient identified for [facility] from: PCP (Chu Zhao) Reason for referral: [facility] Assessment (failed mental health tx, SANJAY,panic) [facility] encounter type: Telephone Encounter Attempts to Outreach: 4 attempts Final Disposition: Other (12-28-21 Informed , unable to sched appt due to insurance out of network) Patient Discharged?: Yes Patient reported that caregiver was able to meet their needs today?: N/A [facility] received a msg from electrical and instrument mechanic Pt is unable to be scheduled -insurance is out of network [facility] attempted to contact Pt -left vm on his cell number -contacted and informed her the appt was cancelled due to insurance being out of network - offered to pay out of pocket -informed her she would need to talk with financial dept - stated she will contact the insurance company and get things worked out -[facility] recommended inquiring about covered behavioral health services when talking with the insurance. agreed to inform [facility] of the outcome of her conversation with the insurance No further contact is indicated -will wait to hear from MANSOOR De La Vega December 28, 2021 documented in this encounter [facility] 12-27-2021 Miscellaneous Notes Behavioral Health Social Work Progress Note Patient identified for [facility] from: PCP (Chu Zhao) Reason for referral: [facility] Assessment (failed mental health tx, SANJAY,panic) [facility] encounter type: Telephone Encounter Attempts to Outreach: 2 attempts Referral made: Psychology - Internal Psychology-Internal referral type: (scheduled bh assessment for 01-07-22 at 9am virtual) SW received a msg from Chu Zhao - would like for Pt to see F psychiatry provider [facility] attempted to contact Pt -no answer -left vm [facility] contacted -scheduled bh assessment for 01-07-22 at 9am virtual -sent Storrz msg with appt info, consent for tx, PHQ9 and GAD7 MANSOOR De La Vega December 27, 2021 documented in this encounter [facility] 12-27-2021 Miscellaneous Notes Spoke with and [...] a psychiatrist visit yesterday. He told our [facility] on 12/22 that he had a visit [...] Alia Nuñez RN documented in this encounter [facility] 12-22-2021 Miscellaneous Notes BEHAVIORAL HEALTH SOCIAL WORK CONSULT NOTE Service Date: December 22, 2021 Patient was identified by name and Patient: Aldair Yepez [address] [facility] [address] (home) [phone] (cell) PCP: Clarence Rodriguez MD [address] [facility] [address] Patient identified for [facility] from: PCP (Chu Zhao) Reason for referral: [facility] Assessment (failed mental health tx, SANJAY,panic) [facility] encounter type: Telephone Encounter Assessment: [facility] received a consult from Chu Zhao, for assessment failed mental health tx, SANJAY, panic [facility] reviewed Pt's chart/insurance [facility] contacted Pt -he was unaware [facility] would be calling -stated has been communicating with [place] [facility] -reported he is receiving services from [facility], on line service -has seen a counselor -has an appt with a psychiatrist tomorrow at 8am Prefers to cont with current providers and not switch services at this time -Pt thanked [facility] for calling [facility] notified Chu Zhao, has services and [...] is receiving counseling and psychiatry service from [facility]) Patient Discharged?: Yes Patient reported that caregiver was able to meet their needs today?: N/A Internal Referrals : No Reason for External Referrals : Other : Pt is established with behavioral health services, counseling and psychiatry at [facility], on line service Intervention: Supportive Listening Resources Provided: Other: none at this time Pt is established with behavioral health services Time Spent: 15 minutes MANSOOR De La Vega documented in this encounter [facility] 12-21-2021 Miscellaneous Notes noted Patient's calls and states that patient is feeling better. states that patient is just going to stop taking medication. Patient is not going to ER. Chely Rainey RN documented in this encounter [facility] 12-21-2021 Miscellaneous Notes Spoke with pt's . She advises that he is not back to normal and will take pt to [facility] ER as instructed by Caryl. Vika Hernandez [...] at work now. documented in this encounter [facility] 12-15-2021 History of Presen t illness [...] Relation Age of Onset Heart Maternal Grandfather [place] Hypertension Mother None Father Heart Maternal Uncle [...] If not improving, can set up with tower supervisor. Caryl Green PA-C documented in this encounter [facility] 12-10-2021 Miscellaneous Notes Patient spouse was [...] together? Please advise documented in this encounter [facility] 12-03-2021 Miscellaneous Notes Spoke with pt's and she states she will schedule appointment via [facility] for pt. Vika Hernandez LPN Patient due [...] advise. Clementina Christina documented in this encounter [facility] 12-03-2021 Miscellaneous Notes Already addressed. Last refill 05/12/21 Qty: 30 with 5 refills Last ov 08/12/21 No appt scheduled Vika Hernandez LPN documented in this encounter [facility] 08-16-2019 History of Past i llness Narrative Problem Noted Date Resolved Date Globus sensation 08/16/2019 09/16/2019 documented as of this encounter (statuses as of 12/03/2021) [facility] Narrative* Problem Noted Date Resolved Date Globus sensation 08/16/2019 09/16/2019 documented as of this encounter (statuses as of 12/03/2021) [facility] Narrative* Problem Noted Date Resolved Date Globus sensation 08/16/2019 09/16/2019 documented as of this encounter (statuses as of 12/10/2021) [facility] Narrative* Problem Noted Date Resolved Date Globus sensation 08/16/2019 09/16/2019 documented as of this encounter (statuses as of 12/15/2021) [facility] Narrative* Problem Noted Date Resolved Date Globus sensation 08/16/2019 09/16/2019 documented as of this encounter (statuses as of 12/21/2021) [address] History of Past illness Narrative* Problem Noted Date Resolved Date Globus sensation 08/16/2019 09/16/2019 documented as of this encounter (statuses as of 12/21/2021) [address] History of Past illness Narrative* Problem Noted Date Resolved Date Globus sensation 08/16/2019 09/16/2019 documented as of this encounter (statuses as of 12/22/2021) [address] History of Past illness Narrative* Problem Noted Date Resolved Date Globus sensation 08/16/2019 09/16/2019 documented as of this encounter (statuses as of 12/27/2021) [address] History of Past illness Narrative* Problem Noted Date Resolved Date Globus sensation 08/16/2019 09/16/2019 documented as of this encounter (statuses as of 12/28/2021) [place] [address] History of Past illness Narrative* Problem Noted Date Resolved Date Globus sensation 08/16/2019 09/16/2019 documented as of this encounter (statuses as of 12/30/2021) [place] [address] History of Past illness Narrative* Problem Noted Date Resolved Date Globus sensation 08/16/2019 09/16/2019 documented as of this encounter (statuses as of 01/10/2022) [place] [address] History of Past illness Narrative* Problem Noted Date Resolved Date Globus sensation 08/16/2019 09/16/2019 documented as of this encounter (statuses as of 01/21/2022) [place] [address] History of Past illness Narrative* Problem Noted Date Resolved Date Globus sensation 08/16/2019 09/16/2019 documented as of this encounter (statuses as of 02/21/2022) [place] [address] History of Past illness Narrative* Problem Noted Date Resolved Date Globus sensation 08/16/2019 09/16/2019 documented as of this encounter (statuses as of 03/15/2022) [place] [address] History of Past illness Narrative* Problem Noted Date Resolved Date Globus sensation 08/16/2019 09/16/2019 documented as of this encounter (statuses as of 03/22/2022) [place] [address] History of Past illness Narrative* Problem Noted Date Resolved Date Globus sensation 08/16/2019 09/16/2019 documented as of this encounter (statuses as of 03/23/2022) [place] [address] History of Past illness Narrative* Problem Noted Date Resolved Date Globus sensation 08/16/2019 09/16/2019 documented as of this encounter (statuses as of 03/23/2022) [place] [address] History of Past illness Narrative* Problem Noted Date Resolved Date Globus sensation 08/16/2019 09/16/2019 documented as of this encounter (statuses as of 03/29/2022) [place] [address] History of Past illness Narrative* Problem Noted Date Resolved Date Globus sensation 08/16/2019 09/16/2019 documented as of this encounter (statuses as of 04/07/2022) [place] [address] History of Past illness Narrative* Problem Noted Date Resolved Date Globus sensation 08/16/2019 09/16/2019 documented as of this encounter (statuses as of 04/08/2022) [place] [address] History of Past illness Narrative* Problem Noted Date Resolved Date Globus sensation 08/16/2019 09/16/2019 documented as of this encounter (statuses as of 04/29/2022) [place] [address] History of Past illness Narrative* Problem Noted Date Resolved Date Globus sensation 08/16/2019 09/16/2019 documented as of this encounter (statuses as of 05/10/2022) [place] [address] History of Past illness Narrative* Problem Noted Date Resolved Date Globus sensation 08/16/2019 09/16/2019 documented as of this encounter (statuses as of 05/10/2022) [place] [address] History of Past illness Narrative* Problem Noted Date Resolved Date Globus sensation 08/16/2019 09/16/2019 documented as of this encounter (statuses as of 05/16/2022) [place] [address] History of Past illness Narrative* Problem Noted Date Resolved Date Globus sensation 08/16/2019 09/16/2019 documented as of this encounter (statuses as of 06/24/2022) [place] [address] History of Past illness Narrative* Problem Noted Date Resolved Date Globus sensation 08/16/2019 09/16/2019 documented as of this encounter (statuses as of 07/17/2022) [place] [address] History of Past illness Narrative* Problem Noted Date Resolved Date Globus sensation 08/16/2019 09/16/2019 documented as of this encounter (statuses as of 08/05/2022) [place] [address] History of Past illness Narrative* Problem Noted Date Resolved Date Globus sensation 08/16/2019 09/16/2019 documented as of this encounter (statuses as of 09/14/2022) [place] [address] History of Past illness Narrative* Problem Noted Date Resolved Date Globus sensation 08/16/2019 09/16/2019 documented as of this encounter (statuses as of 10/19/2022) [place] [address] History of Past illness Narrative* Problem Noted Date Resolved Date Globus sensation 08/16/2019 09/16/2019 documented as of this encounter (statuses as of 11/03/2022) [place] [address] History of Past illness Narrative* Problem Noted Date Resolved Date Globus sensation 08/16/2019 09/16/2019 documented as of this encounter (statuses as of 12/21/2022) [place] [address] History of Past illness Narrative* Problem Noted Date Resolved Date Globus sensation 08/16/2019 09/16/2019 documented as of this encounter (statuses as of 01/06/2023) [place] [address] History of Past illness Narrative* Problem Noted Date Diagnosed Date Resolved Date Globus sensation 08/16/2019 09/16/2019 documented as of this encounter (statuses as of 03/03/2023) [place] [address] History of Past illness Narrative* Problem Noted Date Diagnosed Date Resolved Date Globus sensation 08/16/2019 09/16/2019 documented as of this encounter (statuses as of 03/04/2023) [place] [address] History of Past illness Narrative* Problem Noted Date Diagnosed Date Resolved Date Globus sensation 08/16/2019 09/16/2019 documented as of this encounter (statuses as of 03/04/2023) [place] [address] History of Past illness Narrative* Problem Noted Date Diagnosed Date Resolved Date Globus sensation 08/16/2019 09/16/2019 documented as of this encounter (statuses as of 04/12/2023) [place] [address] History of Past illness Narrative* Problem Noted Date Diagnosed Date Resolved Date Globus sensation 08/16/2019 09/16/2019 documented as of this encounter (statuses as of 04/21/2023) [place] [address] History of Past illness Narrative* Problem Noted Date Diagnosed Date Resolved Date Globus sensation 08/16/2019 09/16/2019 documented as of this encounter (statuses as of 05/05/2023) [place] [address] History of Past illness Narrative* Problem Noted Date Diagnosed Date Resolved Date Globus sensation 08/16/2019 09/16/2019 documented as of this encounter (statuses as of 05/28/2023) [facility]* Problem Noted Date Diagnosed Date Resolved Date Globus sensation 08/16/2019 09/16/2019 documented as of this encounter (statuses as of 06/01/2023) [facility] note* Diagnosis SANJAY (generalized anxiety disorder)- Primary Generalized anxiety disorder Panic attack Panic disorder without agoraphobia Seasonal allergic rhinitis, unspecified trigger documented in this encounter [facility] note* Diagnosis Severe anxiety- Primary Mild depression Depressive disorder, not elsewhere classified documented in this encounter [facility] noteNo assessment information availableWSheltering [facility] Work Phone: Evaluation note* Diagnosis Panic disorder without agoraphobia- Primary [facility]* Diagnosis Injury of head, initial encounter- Primary Accident caused by farm tractor, initial encounter [facility]* Diagnosis Flank pain- Primary Abdominal pain, unspecified site Acute cystitis with hematuria Acute cystitis Acute pain of left shoulder [facility] Diagnosis Flank pain Abdominal pain, unspecified site Acute pain of left shoulder [facility]* Diagnosis Acute pain of left shoulder- Primary documented in this encounter [facility] note* Diagnosis Acute pain of left shoulder [facility]* Diagnosis Acute pain of left shoulder- Primary [facility]* Diagnosis Acute pain of left shoulder- Primary Traumatic complete tear of left rotator cuff, initial encounter [facility]* Diagnosis Panic disorder without agoraphobia- Primary [facility] Diagnosis Panic disorder without agoraphobia- Primary [facility] Diagnosis Sorethroat- Primary Acute pharyngitis documented in this encounter [facility] note* Diagnosis Fatty liver- Primary Other chronic nonalcoholic liver disease Encounter for lipid screening for cardiovascular disease Screening for lipoid disorders documented in this encounter [facility] note* Diagnosis Well adult exam- Primary [facility]ine [facility] [place] (nonalcoholic steatohepatitis) Other chronic nonalcoholic liver disease SANJAY (generalized anxiety disorder) Generalized anxiety disorder Panic attack Panic disorder without agoraphobia Screening for diabetes mellitus Elevated LFTs Other abnormal blood chemistry GERD without esophagitis Esophageal reflux Heat intolerance Unspecified effects of heat and light Candidiasis Candidiasis of unspecified site [facility] Diagnosis Rib pain on left side- Primary Chest pain, unspecified [facility]* Diagnosis Atypical chest pain- Primary Other chest pain GERD without esophagitis Esophageal reflux Family history of early CAD Family history of ischemic heart disease [facility]* Diagnosis Elevated LFTs Other abnormal blood chemistry documented in this [facility]* Diagnosis GERD without esophagitis- Primary Esophageal reflux Encounter for immunization Need for other specified prophylactic vaccination against single bacterial disease documented [facility]* Diagnosis Exposure to blood- Primary Personal history of contact with and (suspected) exposure to potentially hazardous body fluids [facility]* Diagnosis Rib pain on left side Chest pain, unspecified [facility]* Diagnosis Sore throat- Primary Acute pharyngitis Acute otitis media, right Unspecified otitis media [facility]* Diagnosis Sore throat- Primary Acute pharyngitis Strep pharyngitis Streptococcal sore throat [facility]* Diagnosis Tonsillitis- Primary Acute tonsillitis Pharyngitis, unspecified etiology [facility] Discharge instructionsAdditional Instructions Please stay away from raccoons. Follow-up with your primary care physician. You received your rabies immunoglobulin and vaccine here in the emergency department. You need to have recurrent rabies vaccines on day 3, day 7, day 14 from when you were bit.[facility] Work Phone: Reason for referral (narrative)* Diagnostic Procedure Only (Urgent) - Pending Review Specialty Diagnoses / Procedures Referred By Mario robbins Referred To Contact XR IMAGING Diagnoses Rib pain on left side Procedures XR RIBS/CHEST 3V AP RIB/OBLS/CXR LEFT RADEX RIBS UNI W/POSTEROANT CH MINIMUM 3 VIEWS Uma Jimenez, SUPERVISOR [employer] FINISH[employer].COMB TENDER [address] [place] [address] Xr Imaging Referral ID Status Reason Start Date Expiration Date Visits Requested Visits Authorized [id number] Pending Review Auto-Generat ed Referral 03/04/2023 04/02/2024 [address] [facility] for referral (narrative)* Outpatient Procedure (Routine) - Denied Specialty Diagnoses / Procedures Referred By Contac t Referred To Contact [facility] Diagnoses Atypical chest pain Procedures ECG COMPLETE ECG ROUTINE ECG W/LEAST 12 LDS W/I&R Clarence Rodriguez MD [address] [place] [address] [facility] [place] [address] [place] [address] Referral ID Status Reason Start Date Expiration Date V isits Requested Visits Authorized [id number] Denied Auto-Generate d Referral 04/20/2023 04/19/2024 [address] [facility] for referral (narrative)* Diagnostic Procedure Only (Routine) - Closed Specialty Diagnoses / Procedures Referred By Contac t Referred To Contact US IMAGING Diagnoses Elevated LFTs Procedures US ABD RIGHT UPPER QUADRANT US ABDOMINAL REAL TIME W/IMAGE LIMITED Caryl Green PA-C [address] [place] [address] Us Imaging [id number] Referral ID Status Reason Start Date Expiration Date V isits Requested Visits Authorized [id number] Closed Patient Cleared - True Self-Pay required payment collected 12/13/2022 01/12/2024 [address] [facility] for referral (narrative)* Diagnostic Procedure Only (Urgent) - Denied Specialty Diagnoses / Procedures Referred By Contac t Referred To Contact XR IMAGING Diagnoses Rib pain on left side Procedures XR RIBS/CHEST 3V AP RIB/OBLS/CXR LEFT RADEX RIBS UNI W/POSTEROANT CH MINIMUM 3 VIEWS Uma Jimenez APRN.CNP [address] [place] [address] Xr Imaging [id number] Referral ID Status Reason Start Date Expiration Date Visits Re quested Visits Authorized [id number] Denied 03/04/2023 04/02/2024 [address] [facility] for referral (narrative)No reason for referral information [facility] Work Phone: Reason for visit Narrative* Diagnostic Procedure Only (Routine) - Denied Specialty Diagnoses / Procedures Referred By Contac t Referred To Contact XR IMAGING Diagnoses Acute pain of left shoulder Procedures XR SHOULDER GENERAL 3V OR MORE AP/TRUE AP/OTHER LEFT RADEX SHOULDER COMPLETE MINIMUM 2 VIEWS Anuel Mckenna MD [address] [place] [address] Xr Imaging Referral ID Status Reason Start Date Expiration Date V isits Requested Visits Authorized [id number] Denied Auto-Generate d Referral OON/Self Pay Override 04/28/2022 05/28/2023 [address] [facility] for visit Narrative* Diagnostic Procedure Only (Urgent) - Denied Specialty Diagnoses / Procedures Referred By Contac t Referred To Contact XR IMAGING Diagnoses Rib pain on left side Procedures XR RIBS/CHEST 3V AP RIB/OBLS/CXR LEFT RADEX RIBS UNI W/POSTEROANT CH MINIMUM 3 VIEWS Uma Jimenez APRN.COMB TENDER [address] [place] [id number] Xr Imaging [facility] Referral ID Status Reason Start Date Expiration Date Visits Re quested Visits Authorized [id number] Denied 03/04/2023 04/02/2024 1 0 [facility] Advance Directives No Advanced Directives Records FoundDocuments on File Type Date Recorded 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 FLANK PAIN Chief Complaint Other chest pain [...] ABD & PELVIS W/O CONTRAST Nae Domínguez, SUPERVISOR [employer]ISH[employer].COMB TENDER [address] [place] [address] Ct Imaging Referral ID Status Reason Start Date Expiration Date V isits Requested Visits Authorized [id number] Closed Auto-Generate d Referral 03/22/2022 04/21/2023 1 1 Specialty Diagnoses / Procedures Referred By Mario robbins Referred To Contact [facility] Diagnoses Acute pain of left shoulder Procedures CONSULT TO PHYSICAL THERAPY PHYSICAL THERAPY EVALUATION HIGH COMPLEX 45 MINS Nae Domínguez, SUPERVISOR [employer]CR[employer] FINISHING.COMB TENDER [address] [place] [address] [facility] [place] [address] [place] [address] Referral ID Status Reason Start Date Expiration Date Visits Requested Visits Authorized [id number] Pending Review Auto-Generat ed Referral 03/29/2022 03/29/2023 1 1 Specialty Diagnoses / Procedures Referred By Mario robbins Referred To Contact Orthopedics Diagnoses Acute pain of left shoulder Procedures CONSULT TO ORTHOPAEDICS OFFICE/OUTPATIENT [facility] MDM 60-74 MINUTES Nae Domínguez APRN.COMB TENDER [address] [place] [address] [place] [address] Referral ID Status Reason Start Date Expiration Date V isits Requested Visits Authorized [id number] Denied PCP Requested Referral 04/08/2022 04/08/2023 1 0 Specialty Diagnoses / Procedures Referred By Contac t Referred To Contact MR IMAGING Diagnoses Acute pain of left shoulder Traumatic complete tear of left rotator cuff, initial encounter Procedures MRI SHOULDER WO IVCON LT MRI ANY JT UPPER EXTREMITY W/O CONTRAST MATRL Anuel Mckenna MD [address] [place] [address] Mr Imaging Referral ID Status Reason Start Date Expiration Date Visits Requested Visits Authorized [id number] Closed Auto-Generated Referral Patient cleared - OON Required Payment Collected OON Notification Letter 04/28/2022 05/28/2023 1 1 Specialty Diagnoses / Procedures Referred By Contac t Referred To Contact XR IMAGING Diagnoses Acute pain of left shoulder Procedures XR SHOULDER GENERAL 3V OR MORE AP/TRUE AP/OTHER LEFT RADEX SHOULDER COMPLETE MINIMUM 2 VIEWS Anuel Mckenna MD [address] [place] [address] Xr Imaging Referral ID Status Reason Start Date Expiration Date V isits Requested Visits Authorized [id number] Denied Auto-Generate d Referral OON/Self Pay Override [...] or prosecute any alcohol or drug abuse patient.[facility] Hospital[facility] the event this information is protected by the Federal Confidentiality of Alcohol and Drug Abuse Patient Records regulations: The Federal rules restrict any use of the information to criminally investigate or prosecute any alcohol or drug abuse patient.[facility] HospitalIn the event this information is protected by the Federal Confidentiality of Alcohol and Drug Abuse Patient Records regulations: The Federal rules restrict any use of the information to criminally investigate or prosecute any alcohol or drug abuse patient.[facility] HospitalIn the event this information is protected by the Federal Confidentiality of Alcohol and Drug Abuse Patient Records regulations: The Federal rules restrict any use of the information to criminally investigate or prosecute any alcohol or drug abuse patient.[facility] HospitalIn the event this information is protected by the Federal Confidentiality of Alcohol and Drug Abuse Patient Records regulations: The Federal rules restrict any use of the information to criminally investigate or prosecute any alcohol or drug abuse patient.[facility] HospitalIn the event this information is protected by the Federal Confidentiality of Alcohol and Drug Abuse Patient Records regulations: The Federal rules restrict any use of the information to criminally investigate or prosecute any alcohol or drug abuse patient.[facility] HospitalIn the event this information is protected by the Federal Confidentiality of Alcohol and Drug Abuse Patient Records regulations: The Federal rules restrict any use of the information to criminally investigate or prosecute any alcohol or drug abuse patient.[facility] HospitalIn the event this information is protected by the Federal Confidentiality of Alcohol and Drug Abuse Patient Records regulations: The Federal rules restrict any use of the information to criminally investigate or prosecute any alcohol or drug abuse patient.[facility] HospitalIn the event this information is protected by the Federal Confidentiality of Alcohol and Drug Abuse Patient Records regulations: The Federal rules restrict any use of the information to criminally investigate or prosecute any alcohol or drug abuse patient.[facility] HospitalIn the event this information is protected by the Federal Confidentiality of Alcohol and Drug Abuse Patient Records regulations: The Federal rules restrict any use of the information to criminally investigate or prosecute any alcohol or drug abuse patient.[facility] HospitalIn the event this information is protected by the Federal Confidentiality of Alcohol and Drug Abuse Patient Records regulations: The Federal rules restrict any use of the information to criminally investigate or prosecute any alcohol or drug abuse patient.[facility] HospitalIn the event this information is protected by the Federal Confidentiality of Alcohol and Drug Abuse Patient Records regulations: The Federal rules restrict any use of the information to criminally investigate or prosecute any alcohol or drug abuse patient.[facility] HospitalIn the event this information is protected by the Federal Confidentiality of Alcohol and Drug Abuse Patient Records regulations: The Federal rules restrict any use of the information to criminally investigate or prosecute any alcohol or drug abuse patient.[facility] HospitalIn the event this information is protected by the Federal Confidentiality of Alcohol and Drug Abuse Patient Records regulations: The Federal rules restrict any use of the information to criminally investigate or prosecute any alcohol or drug abuse patient.[facility] HospitalIn the event this information is protected by the Federal Confidentiality of Alcohol and Drug Abuse Patient Records regulations: The Federal rules restrict any use of the information to criminally investigate or prosecute any alcohol or drug abuse patient.[facility] HospitalIn the event this information is protected by the Federal Confidentiality of Alcohol and Drug Abuse Patient Records regulations: The Federal rules restrict any use of the information to criminally investigate or prosecute any alcohol or drug abuse patient.[facility] HospitalIn the event this information is protected by the Federal Confidentiality of Alcohol and Drug Abuse Patient Records regulations: The Federal rules restrict any use of the information to criminally investigate or prosecute any alcohol or drug abuse patient.[facility] HospitalIn the event this information is protected by the Federal Confidentiality of Alcohol and Drug Abuse Patient Records regulations: The Federal rules restrict any use of the information to criminally investigate or prosecute any alcohol or drug abuse patient.[facility] HospitalIn the event this information is protected by the Federal Confidentiality of Alcohol and Drug Abuse Patient Records regulations: The Federal rules restrict any use of the information to criminally investigate or prosecute any alcohol or drug abuse patient.[facility] HospitalIn the event this information is protected by the Federal Confidentiality of Alcohol and Drug Abuse Patient Records regulations: The Federal rules restrict any use of the information to criminally investigate or prosecute any alcohol or drug abuse patient.[facility] HospitalIn the event this information is protected by the Federal Confidentiality of Alcohol and Drug Abuse Patient Records regulations: The Federal rules restrict any use of the information to criminally investigate or prosecute any alcohol or drug abuse patient.[facility] HospitalIn the event this information is protected by the Federal Confidentiality of Alcohol and Drug Abuse Patient Records regulations: The Federal rules restrict any use of the information to criminally investigate or prosecute any alcohol or drug abuse patient.[facility] HospitalIn the event this information is protected by the Federal Confidentiality of Alcohol and Drug Abuse Patient Records regulations: The Federal rules restrict any use of the information to criminally investigate or prosecute any alcohol or drug abuse patient.[facility] HospitalIn the event this information is protected by the Federal Confidentiality of Alcohol and Drug Abuse Patient Records regulations: The Federal rules restrict any use of the information to criminally investigate or prosecute any alcohol or drug abuse patient.[facility] HospitalIn the event this information is protected by the Federal Confidentiality of Alcohol and Drug Abuse Patient Records regulations: The Federal rules restrict any use of the information to criminally investigate or prosecute any alcohol or drug abuse patient.[facility] HospitalIn the event this information is protected by the Federal Confidentiality of Alcohol and Drug Abuse Patient Records regulations: The Federal rules restrict any use of the information to criminally investigate or prosecute any alcohol or drug abuse patient.[facility] HospitalIn the event this information is protected by the Federal Confidentiality of Alcohol and Drug Abuse Patient Records regulations: The Federal rules restrict any use of the information to criminally investigate or prosecute any alcohol or drug abuse patient.[facility] HospitalIn the event this information is protected by the Federal Confidentiality of Alcohol and Drug Abuse Patient Records regulations: The Federal rules restrict any use of the information to criminally investigate or prosecute any alcohol or drug abuse patient.[facility] HospitalIn the event this information is protected by the Federal Confidentiality of Alcohol and Drug Abuse Patient Records regulations: The Federal rules restrict any use of the information to criminally investigate or prosecute any alcohol or drug abuse patient.[facility] HospitalIn the event this information is protected by the Federal Confidentiality of Alcohol and Drug Abuse Patient Records regulations: The Federal rules restrict any use of the information to criminally investigate or prosecute any alcohol or drug abuse patient.[facility] HospitalIn the event this information is protected by the Federal Confidentiality of Alcohol and Drug Abuse Patient Records regulations: The Federal rules restrict any use of the information to criminally investigate or prosecute any alcohol or drug abuse patient.[facility] HospitalIn the event this information is protected by the Federal Confidentiality of Alcohol and Drug Abuse Patient Records regulations: The Federal rules restrict any use of the information to criminally investigate or prosecute any alcohol or drug abuse patient.[facility] HospitalIn the event this information is protected by the Federal Confidentiality of Alcohol and Drug Abuse Patient Records regulations: The Federal rules restrict any use of the information to criminally investigate or prosecute any alcohol or drug abuse patient.[facility] HospitalIn the event this information is protected by the Federal Confidentiality of Alcohol and Drug Abuse Patient Records regulations: The Federal rules restrict any use of the information to criminally investigate or prosecute any alcohol or drug abuse patient.[facility] HospitalIn the event this information is protected by the Federal Confidentiality of Alcohol and Drug Abuse Patient Records regulations: The Federal rules restrict any use of the information to criminally investigate or prosecute any alcohol or drug abuse patient.[facility] HospitalIn the event this information is protected by the Federal Confidentiality of Alcohol and Drug Abuse Patient Records regulations: The Federal rules restrict any use of the information to criminally investigate or prosecute any alcohol or drug abuse patient.[facility] HospitalIn the event this information is protected by the Federal Confidentiality of Alcohol and Drug Abuse Patient Records regulations: The Federal rules restrict any use of the information to criminally investigate or prosecute any alcohol or drug abuse patient.[facility] HospitalIn the event this information is protected by the Federal Confidentiality of Alcohol and Drug Abuse Patient Records regulations: The Federal rules restrict any use of the information to criminally investigate or prosecute any alcohol or drug abuse patient.[facility] HospitalIn the event this information is protected by the Federal Confidentiality of Alcohol and Drug Abuse Patient Records regulations: The Federal rules restrict any use of the information to criminally investigate or prosecute any alcohol or drug abuse patient.[facility] HospitalIn the event this information is protected by the Federal Confidentiality of Alcohol and Drug Abuse Patient Records regulations: The Federal rules restrict any use of the information to criminally investigate or prosecute any alcohol or drug abuse patient.[facility] HospitalIn the event this information is protected by the Federal Confidentiality of Alcohol and Drug Abuse Patient Records regulations: The Federal rules restrict any use of the information to criminally investigate or prosecute any alcohol or drug abuse patient.[facility] HospitalIn the event this information is protected by the Federal Confidentiality of Alcohol and Drug Abuse Patient Records regulations: The Federal rules restrict any use of the information to criminally investigate or prosecute any alcohol or drug abuse patient.[facility] HospitalIn the event this information is protected by the Federal Confidentiality of Alcohol and Drug Abuse Patient Records regulations: The Federal rules restrict any use of the information to criminally investigate or prosecute any alcohol or drug abuse patient.[facility] HospitalIn the event this information is protected by the Federal Confidentiality of Alcohol and Drug Abuse Patient Records regulations: The Federal rules restrict any use of the information to criminally investigate or prosecute any alcohol or drug abuse patient.[facility] HospitalIn the event this information is protected by the Federal Confidentiality of Alcohol and Drug Abuse Patient Records regulations: The Federal rules restrict any use of the information to criminally investigate or prosecute any alcohol or drug abuse patient.[facility] HospitalIn the event this information is protected by the Federal Confidentiality of Alcohol and Drug Abuse Patient Records regulations: The Federal rules restrict any use of the information to criminally investigate or prosecute any alcohol or drug abuse patient.[facility] HospitalIn the event this information is protected by the Federal Confidentiality of Alcohol and Drug Abuse Patient Records regulations: The Federal rules restrict any use of the information to criminally investigate or prosecute any alcohol or drug abuse patient.[facility] Reason for Visit (unrecogniz ed section and content) Reason Comments Follow Up Specialty Diagnoses / Procedures Referred By [facility] Referred To Contact FAMILY MEDICINE Diagnoses gerd/chest pain follow up Procedures OFFICE/OUTPATIENT [facility] 30-39 MIN Clarence Piedra MD [address] [place] [address] [facility] [address] [place] [address] Referral ID Status Reason Start Date Expiration Date Visits Requested Visits Authorized [id number] Closed Financial Clearance Required - OON Payor OON Notification Letter Patient cleared - OON Required Payment Collected 04/20/2023 07/19/2023 1 1 Specialty Diagnoses / Procedures Referred By [facility] Referred To Contact ADULT PSYCHIATRY Diagnoses Virtual Procedures Virtual Tayler Gonsalez, SUPERVISOR [employer]CR[employer] FINISHING.[facility] [address] [place] [address] [facility] Adult [facility] [address] [place] [address] Referral ID Status Reason Start Date Expiration Date Visits Requested Visits Authorized [id number] Closed Financial Clearance Required - OON Payor OON Notification Letter Patient cleared - OON Required Payment Collected 10/17/2022 1 1 Reason Onset Date Comments Refill Request 12/02/2021 Reason Comments Medication Question Reason Comments Recheck medication Specialty Diagnoses / Procedures Referred By [facility] Referred To Contact Family Practice / FAMILY MEDICINE Diagnoses Encounter for follow-up examination after completed treatment for conditions other than malignant neoplasm Renewing medication Procedures OFFICE/OUTPATIENT ESTABLISHED [facility] 30-39 MIN MYC OFFICE VISIT Self Crayl Green PA-C [address] [place] [address] Referral ID Status Reason Start Date Expiration Date Visits Requested Visits Authorized [id number] Closed Financial Clearance Required - OON Payor Clearance Not Met - Admin/Cardroom Hand/D irector Advise to Postpone/Resched ule or Not Proceed OON Notification Letter 12/15/2021 07/23/2022 1 1 Reason Comments Patient Update Medication Problem Reason Comments Patient Update Reason Comments Consult Initial [facility] Pt Outr each Reason Comments Consult [facility] Pt Outreach F/U Reason Comments Patient Question Reason Comments Consult [facility] Calling Reason Comments Consult [facility] Assessment [facility] Specialty Diagnoses / Procedures Referred By Mario t Referred To Contact ADULT PSYCHOLOGY Diagnoses anxiety/ eval Procedures REFERRAL TO [facility] FINANCIAL COUNSELOR PSYCHIATRIC DIAGNOSTIC EVALUATION 1st eval Clarence Rodriguez MD [address] [place] [address] Psyl Adult [facility] [address] [address] Referral ID Status Reason Start Date Expiration Date Visits Requested Visits Authorized [id number] Closed Financial Clearance Required - OON Payor OON Notification Letter Patient cleared - OON Required Payment Collected 12/27/2021 03/27/2022 1 1 Reason Comments New Patient Evaluation Specialty Diagnoses / Procedures Referred By Contelaine t Referred To Contact ADULT PSYCHOLOGY Diagnoses medication Procedures REFERRAL TO [facility] FINANCIAL COUNSELOR EST patient Filippo, Grey, CRISIS WORKER [address] [place] [address] Psyl Adult [facility] [address] [address] Referral ID Status Reason Start Date Expiration Date Visits Requested Visits Authorized [id number] Closed Financial Clearance Required - OON Payor OON Notification Letter Patient Cleared Patient chose to pay or Auth obtained after CCN denied 01/28/2022 04/28/2022 1 1 Reason Comments left shoulder pain Flipped mower over 1 hour ago Reason Comments ER F/U [facility] ER follow up 02/22 3 dx: mower rolled over on him Specialty Diagnoses / Procedures Referred By Mario t Referred To Contact FAMILY MEDICINE Diagnoses ER f/u Procedures consult and treat MD Guillermo [facility] [address] [place] [address] Referral ID Status Reason Start Date Expiration Date V isits Requested Visits Authorized [id number] Denied OON/Self Pay Override 03/22/2022 06/20/2022 1 0 Reason Comments Results Reason Comments PT Eval Specialty Diagnoses / Procedures Referred By Contac t Referred To Contact [facility] Diagnoses Acute pain of left shoulder Procedures CONSULT TO PHYSICAL THERAPY PHYSICAL THERAPY EVALUATION HIGH COMPLEX 45 MINS Nae Domínguez APRN.COMB TENDER [address] [place] [address] [facility] [address] [place] [address] Referral ID Status Reason Start Date Expiration Date V isits Requested Visits Authorized [id number] Closed Financial Clearance Required - OON Payor [...] Anuel Mckenna MD [address] [place] [address] Mr Imaging Referral ID Status Reason Start Date Expiration Date Visits Requested Visits Authorized [id number] Closed Auto-Generated Referral Patient cleared - OON Required Payment Collected OON Notification Letter 04/28/2022 05/28/2023 1 1 Reason Comments New Pain Specialty Diagnoses / Procedures Referred By Contac t Referred To Contact ORTHOPAEDIC SURGERY Diagnoses Torn Rotator Cuff Procedures Office Visit Anuel Mckenna MD [address] [place] [address] [facility] [address] [place] [address] Referral ID Status Reason Start Date Expiration Date Visits Requested Visits Authorized [id number] Closed Financial Clearance Required - OON Payor OON Notification Letter Patient cleared - OON Required Payment Collected 04/11/2022 07/10/2022 1 1 Reason Onset Date Comments Refill Request 06/24/2022 Specialty Diagnoses / Procedures Referred By Contac t Referred To Contact Psychiatry / ADULT PSYCHIATRY Diagnoses NEW PATIENT Procedures VIDEO PSYC/PSYL NEW Filippo, MANSOOR [place] [address] [place] [address] Tayler Gonsalez, SUPERVISOR [employer].COMB TENDER [address] [place] [address] Referral ID Status Reason Start Date Expiration Date Visits Requested Visits Authorized [id number] Closed Financial Clearance Required - OON Payor [...] TEST, TREAT, CONSULT Caryl Green PA-C [address] [place] [address] [facility] [address] [place] [address] Referral ID Status Reason Start Date Expiration Date V isits Requested Visits Authorized [id number] Closed Financial Clearance Required - OON Payor Patient cleared - OON Required Payment Collected 02/15/2023 05/16/2023 1 1 Reason Comments Pain (Shoulder Pain) left shoulder pain into chest x 2 days, comes and goes Reason Comments Pain Specialty Diagnoses / Procedures Referred By Contac t Referred To Contact [facility] Diagnoses GERD ISSUES Procedures REFERRAL TO [facility] FINANCIAL COUNSELOR Clarence Reed MD [address] [place] [address] [place] [address] Referral ID Status Reason Start Date Expiration Date Visits Requested Visits Authorized [id number] Closed Financial Clearance Required - OON Payor OON Notification Letter Patient cleared - OON Required Payment Collected 04/11/2023 07/10/2023 1 1 Reason Comments Radiology US Specialty Diagnoses / Procedures Referred By Contac t Referred To Contact US IMAGING Diagnoses Elevated LFTs Procedures US ABD RIGHT UPPER QUADRANT US ABDOMINAL REAL TIME W/IMAGE LIMITED Caryl Green PA-C [address] [place] [address] [place] [address] Referral ID Status Reason Start Date Expiration Date V isits Requested Visits Authorized [id number] Closed Patient Cleared - True Self-Pay required [...] Care Teams (unrecognized sec tion and content) Business Analyst Ecommerce Relationship Specialty Start Date End Date Clarence Rodriguez MD [address] [place] [phone] PCP - General Family Practice 10/03/19 Business Analyst Ecommerce Relationship Specialty Start Date End Date Clarence Rodriguez MD [address] [place] [address] PCP - General Family Practice 10/03/19 Business Analyst Ecommerce Relationship Specialty Start Date End Date Clarence Rodriguez MD [address] [place] [phone] PCP - General Family Practice 10/03/19 Business Analyst Ecommerce Relationship Specialty Start Date End Date Clarence Rodriguez MD [address] [place] [address] PCP - General Family Practice 10/03/19 Business Analyst Ecommerce Relationship Specialty Start Date End Date Clarence Rodriguez MD [address] [place] [address] PCP - General Family Practice 10/03/19 Business Analyst Ecommerce Relationship Specialty Start Date End Date Clarence Rodriguez MD [address] [place] [address] PCP - General Family Practice 10/03/19 Business Analyst Ecommerce Relationship Specialty Start Date End Date Clarence Rodriguez MD [facility] [place] [address] PCP - General Family Practice 10/03/19 Business Analyst Ecommerce Relationship Specialty Start Date End Date Clarence Rodriguez MD [address] [place] [address], [place] [address] PCP - General Family Practice 10/03/19 Business Analyst Ecommerce Relationship Specialty Start Date End Date Clarence Rodriguez MD [address] [place] [address], [place] [address] PCP - General Family Practice 10/03/19 Business Analyst Ecommerce Relationship Specialty Start Date End Date Clarence Rodriguez MD [address] [place] [address], [place] [address] PCP - General Family Practice 10/03/19 Business Analyst Ecommerce Relationship Specialty Start Date End Date Clarence Rodriguez MD [address] [place] [address], [place] [address] PCP - General Family Practice 10/03/19 Business Analyst Ecommerce Relationship Specialty Start Date End Date Clarence Rodriguez MD [address] [place] [address], [place] [address] PCP - General Family Practice 10/03/19 Business Analyst Ecommerce Relationship Specialty Start Date End Date Clarence Rodriguez MD [address] [place] [address], [place] [address] PCP - General Family Medicine 10/03/19 Business Analyst Ecommerce Relationship Specialty Start Date End Date Clarence Rodriguez MD [address] [place] [address], [place] [address] PCP - General Family Medicine 10/03/19 Business Analyst Ecommerce Relationship Specialty Start Date End Date Clarence Rodriguez MD [address] [place] [address], [place] [address] PCP - General Family Medicine 10/03/19 Business Analyst Ecommerce Relationship Specialty Start Date End Date Clarence Rodriguez MD [address] [facility] [place] [address] PCP - General Family Medicine 10/03/19 Business Analyst Ecommerce Relationship Specialty Start Date End Date Clarence Rodriguez MD [address] [facility] [place] [address] PCP - General Family Medicine 10/03/19 Business Analyst Ecommerce Relationship Specialty Start Date End Date Clarence Rodriguez MD [address] [place] [address] PCP - General Family Medicine 10/03/19 Business Analyst Ecommerce Relationship Specialty Start Date End Date Clarence Rodriguez MD [address] [place] [address] [place] [address] PCP - General Family Medicine 10/03/19 Business Analyst Ecommerce Relationship Specialty Start Date End Date Clarence Rodriguez MD [address] [facility] [place] [address] PCP - General Family Medicine 10/03/19 Business Analyst Ecommerce Relationship Specialty Start Date End Date Clarence Rodriguez MD [facility] [place] [address] PCP - General Family Medicine 10/03/19 Business Analyst Ecommerce Relationship Specialty Start Date End Date Clarence Rodriguez MD [address] [facility] [place] [address] PCP - General Family Medicine 10/03/19 Business Analyst Ecommerce Relationship Specialty Start Date End Date Clarence Rodriguez MD [facility] [place] [address] PCP - General Family Medicine 10/03/19 Business Analyst Ecommerce Relationship Specialty Start Date End Date Clarence Rodriguez MD [address] [place] [address] PCP - General Family Medicine 10/03/19 Business Analyst Ecommerce Relationship Specialty Start Date End Date Clarence Rodriguez MD [address] [place] [address] PCP - General Family Medicine 10/03/19 Business Analyst Ecommerce Relationship Specialty Start Date End Date Clarence Rodriguez MD [address] [place] [address] PCP - General Family Medicine 10/03/19 Business Analyst Ecommerce Relationship Specialty Start Date End Date Clarence Rodriguez MD [address] [place] [address] PCP - General Family Medicine 10/03/19 Business Analyst Ecommerce Relationship Specialty Start Date End Date Clarence Rodriguez MD [address] [place] [address] PCP - General Family Medicine 10/03/19 Business Analyst Ecommerce Relationship Specialty Start Date End Date Clarence Rodriguez MD [address] [place] [address] PCP - General Family Medicine 10/03/19 Team Status: Active Member Role Status Dates Dr. Kaleb Junior MD Family Provider Active Caryl LONGORIA PA Primary Care Provider Active Team Status: Active Member Role Status Dates Caryl LONGORIA PA Primary Care Provider Active Dr. Clarence Rodriguez MD Referring Provider, Other Prov ider Active Dr. Segun Maciel MD Attending Provider Active Team Status: Inactive Member Role Status Dates SWATI Magaña Primary Care Provider Active Dr. Clarence Rodriguez MD Attending Provider, Referring Provider Active Business Analyst Ecommerce Relationship Specialty Start Date End Date Clarence Rodriguez MD [address] [place] [address] PCP - General Family Medicine 10/03/19 Business Analyst Ecommerce Relationship Specialty Start Date End Date Clarence Rodriguez MD [address] [place], [place] [address] [phone] PCP - General Family Medicine 10/03/19 Team Status: Inactive Member Role Status Dates Caryl LONGORIA PA Primary Care Provider Active Dr. Richelle Richards MD Emergency Provider Active Business Analyst Ecommerce Relationship Specialty Start Date End Date Clarence Rodriguez MD [address] [place] [address] PCP - General Family Medicine 10/03/19 Business Analyst Ecommerce Relationship Specialty Start Date End Date Clarence Rodriguez MD [address] [place] [address] PCP - General Family Medicine 10/03/19 Business Analyst Ecommerce Relationship Specialty Start Date End Date Clarence Rodriguez MD [address] [place], [place] [phone] PCP - General Family Medicine 10/03/19 Blanca Olivares APRN.CNP [address] [place] [address] [employer] [facility] 06/29/24 Caryl Green PA-C [address] [place] [address] [employer] [facility] 06/29/24 Business Analyst Ecommerce Relationship Specialty Start Date End Date Clarence Rodriguez MD [address] [place], [place] [phone] PCP - General Family Medicine 10/03/19 Blanca Olivares APRN.CNP [address] [place] [address] [facility] 06/29/24 Caryl Green PA-C [address] [place] [address] [facility] 06/29/24 Team Status: Active Member Role/Relationship Status [...] End: February 09, 2025 Dr. Jak Bates , DO Emergency [...] section and content) DATE CREATED AUTHOR 08/07/2024 [facility] DATE CREATED AUTHOR AUTHOR'S JOSSELYN MCLEOD 02/14/2025 [facility] FOR RECORDS PERTAINING TO PATIENTS WHO [...] BE BASED ON THE PRIMARY CLINICAL RECORDS. [employer] [facility]. provides no warranty or guarantee of the accuracy or completeness of information in this document.
[2025-02-16 12:19] VITALS: BMI 60.0
[2025-02-16 12:34] VITALS: BP 128/92; PULSE 73; RESP 18; TEMP 36.2; O2SAT 98
--- OUTSIDE RECORDS SUMMARY | 2025-02-16 16:13 | XMS RPT_ITS | CCD ---
Author Organization [facility] Care Team Providers Care Correctional Classification Counselor Name Role Phone Clarence Rodriguez MD Primary Care Provider SWATI Hilton Primary Care Provider [phone] Dr. Clarence Rodriguez Referring Provider Dr. Clarence Rodriguez Other Provider Dr. Segun Maciel Attending Provider Clarence Rodriguez MD Primary Care Provider Clarence Rodriguez MD Primary Care Provider Clarence Rodriguez MD Primary Care Provider Marshall TINOCOCONTINUITY CLERK, Blanca Unavailable Caryl Green PA-C Unavailable CLARENCE RODRIGUEZ Attending Unavailable CLARENCE RODRIGUEZ Primary Care Unavailable CLARENCE RODRIGUEZ Attending Unavailable CLARENCE RODRIGUEZ Primary Care Unavailable CLARENCE RODRIGUEZ Primary Care Unavailable CLARENCE RODRIGUEZ Primary Care Unavailable CLARENCE RODRIGUEZ Primary Care Unavailable Caryl Hilton Primary Care Provider Dr. Jak Bates DO Emergency Provider Dr. Jak Bates DO Attending Provider Jak Bates Attending Caryl Stahl Primary Care Unavailable Jak Bates Attending Caryl Stahl Primary Care Unavailable Provider, Ed Physician Attending UnavailCaryl Milan Primary Care Unavailable Caryl Hilton Primary Care Unavailable Jak Bates [facility] Medications Current Medications Medication Drug Class(es) Dates [...] Comment on above: [facility] hours as needed for pain [...] on above: Take [address] [facility] twice daily for 10 days. amoxicillin [...] Start: 07-22-2023 take [address] [facility] once daily at [...] on above: Take [address] [facility] daily before breakfast. 1/2 hr before [...] Comment on above: Take 1 tablet by [facility] once daily. Take 1.5 tablets by mouth [...] 1 {tbl} PO TWICE A DAY 20 0 February 13, 2022 12:00am 2025 12:22am Start: [...] Cut/pierceb (7 sources) Accident caused by powered hospital security officer; Translations: [Contact with powered hospital security officer, initial encounter] 03-23-2022 Episodic E Codes: Machinery [...] Department Summary on 2025 Emergency Department Summary [facility] Medical Records Department [address] [place] [address] Emergency Department Summary 02/02/25 MR#: [id number] Acct: [id number] Name: ALDAIR YEPEZ Rep #: [id number] : 1995 30 From: Jak Bates DO [...] Psych: Cooperative, appropriate mood and affect PFSH [facility] Medical History Anxiety Chewing tobacco [...] Green Referrals: Caryl Green, SWATI [Primary Care Provider] - 3-5 Days Activity Restrictions/Additional Instructions: Please stay away from raccoons. Follow-up with your primary care physician. You received your rabies immunoglobulin and vaccine here in the emergency department. You need to have recurrent rabies vaccines on day 3, day 7, day 14 from when you were bit. Print Language: Uzbek Disposition Disposition: Home, Self Care Discharge Date/Time: 02/02/25 04:25 What to do if you have Problems For any increased pain, shortness of breath, bleeding, nausea or vomiting, chest pain, or any unexpected problems, contact your Primary Care Provider. Call [facility] ([phone]) or report to the closest Emergency Room. Call 911 if necessary. 02/02/25 3968 Cosigner Signature (if applicable): CC: SWATI Zhao [facility]igned [facility] Office Visit (FAMPWS ) ALDAIR YEPEZ ([id number]) 1995 M Date Time Provider Department 08/02/24 10:20 AM [facility] During your visit today, we recorded the following information about you: Temperature Pulse Respiration Blood pressure 98.5 degrees 80/minute 18/minute 118/90 Weight 134.3 kg Clarence Rodriguez MD 08/02/2024 10:47 AM Signed Chief Complaint Patient presents with: Sore Throat: Sore throat started a week ago. KINGSLEY Carpenter Jaiden Yepez is a 29 year old male [...] Relation Age of Onset Heart Maternal Grandfather ND Hypertension Mother None Father Heart Maternal Uncle [...] Signed Prescri (more content not included)... Normal [facility] CNOVon 07-08-2024 CNOV Office Visit (UCWSTR ) ALDAIR YEPEZ ([id number]) 1995 M Date Time Provider Department 07/08/24 7:30 AM [facility] During your visit today, we recorded the following information about you: Temperature Pulse Respiration Blood pressure 98.8 degrees 90/minute 16/minute 108/64 Weight 133.9 kg Clarence Giles, SUBMARINE ELEMENT COORDINATOR.CONTINUITY CLERK 07/08/2024 8:02 AM Signed Subjective HPI Nontoxic-appearing [...] Relation Age of Onset Heart Maternal Grandfather ND Hypertension Mother None Father Heart Maternal Uncle [...] He is (more content not included)... Normal [facility] STREP A MOLECULAR (POC)on Interpretation and review of laboratory results Abnormal [facility] Procedural Control Valid [facility] Strep A (POCT) Positive Abnormal Negative [facility] CNOVon 05-29-2024 CNOV Office Visit (UCWSTR ) ALDAIR YEPEZ ([id number]) 1995 M Date Time Provider Department 05/29/24 2:45 PM CASE CROSS [facility] During your visit today, we recorded the following information about you: Temperature Pulse Respiration Blood pressure 97.8 degrees 80/minute 16/minute 112/78 Weight 133.9 kg Case Cross APRN.CONTINUITY CLERK 05/29/2024 3:04 PM Signed This note was created using Biztagriter. Subjective Aldair Yepez is a 29 year [...] - AMOXICILLIN 875 MG TABLET Case Cross APRN.CNP Allergies As of Date: 05/29/2024 (No Known Allergies) Date Reviewed: 05/29/2024 Reviewed by: Case Cross APRN.CONTINUITY CLERK - Fully Assessed Reason for Visit: Ear Pain [817] Cmt: Bilateral ear pain and ST x 2 days Primary Visit Diagnosis:Sore throat [J02.9] Other Visit Diagnosis:Acute otitis media, right [H66.91] Order(s):STREP A MOLECULAR (POC) [7091450] Order #: [id number]. #:[id number] amoxicillin (AMOXIL) 875 mg tabletTake 1 [...] Encounter Status:Closed by CASE CROSS on 05/29/24 Normal [facility] STREP A MOLECULAR (POC)on Procedural Control Valid [facility] Strep A (POCT) Negative Negative [facility] CNOVon 11-13-2023 CNOV Office Visit (UCWSTR ) ALDAIR YEPEZ ([id number]) 1995 M Date Time Provider Department 11/13/23 6:00 PM ZULEYMA ALDANA W[facility] During your visit today, we recorded the following information about you: Temperature Pulse Respiration Blood pressure 98 degrees 77/minute 21/minute 124/68 Weight 134.1 kg Zuleyma Aldana APRN.CONTINUITY CLERK 11/13/2023 6:24 PM Signed Subjective HPI Aldair Hwang Baljinder is a 28 [...] Relation Age of Onset Heart Maternal Grandfather ND Hypertension Mother None Father Heart Maternal Uncle [...] go to ER as advised. Zuleyma Aldana APRN.CONTINUITY CLERK Allergies As of Date: 11/13/2023 (No Known [...] LOCKHART (nonalcoholic (more content not included)... Normal [facility] CNOVon 08-09-2023 CNOV Office Visit (FAMPWS ) ALDAIR YEPEZ ([id number]) 1995 M Date Time Provider Department 08/09/23 10:40 AM CLARENCE RODRIGUEZ During your visit today, we recorded the [...] and a maternal grandfather who of a ND in either his 40-50's. Past medical history, [...] Relation Age of Onset Heart Maternal Grandfather ND Hypertension Mother None Father Heart Maternal Uncle [...] distress, well-hydrated (more content not included)... Normal [facility] XR RIBS/CHEST 3V AP RIB/OBLS /CXR LEFTon 03-04-2023 [facility] XR Ribs - left Views and Anai st PAon 03-04-2023 IMPRESSION: No evide nce of acute left rib fracture. Environmental Department Manager: PSCB Transcribe Date/Time: Mar 04 2023 10:43A Dictated by : ELINA TORRES MD This examination was interpreted and the report reviewed and electronically signed by: ELINA TORRES MD on Mar 04 2023 10:45AM [facility] DIVISION OF RADIOLOGY * * *Final [...] lungs appear normal. DIVISION OF RADIOLOGY Provider, [facility] - 03/04/2023 * * *Final Report* [...] No evidence of acute left rib fracture. Environmental Department Manager: PSCB Transcribe Date/Time: Mar 04 2023 10:43A Dictated by : ELINA TORRES MD This examination was interpreted and the report reviewed and electronically signed by: ELINA TORRES MD on Mar 04 2023 10:45AM EST [facility] Radiology Study observation (narrative) [facility] XR Ribs - left Views and Anai st PAOrdered By: Ccf Provider on 03-04-2023 [facility] HbA1c (Bld)on 03-02-2023 Average glucose Estimated from glycated hemoglobin (Bld) [Mass/Vol] 108 mg/dL [facility] HbA1c (Bld) [Mass fraction] 5.4 % 4.3 - 5.6 % [facility] Hepatic function 2000 panelo n 03-02-2023 Albumin [Mass/Vol] 4.3 g/dL 3.9 - 4.9 g/dL [facility] ALP [Catalytic activity/Vol] 71 U/L 38 - 113 U/L [facility] ALT [Catalytic activity/Vol] 73 U/L High 10 - 54 U/L [facility] AST [Catalytic activity/Vol] 51 U/L High 14 - 40 U/L [facility] Bilirubin [Mass/Vol] 0.4 mg/dL 0.2 - 1.3 mg/dL [facility] Bilirubin.conjuga mary alice [Mass/Vol] <0.2 mg/dL [facility] Protein [Mass/Vol] 6.8 g/dL 6.3 - 8.0 g/dL [facility] LIPID PANEL, NONFASTINGon Cholesterol [Mass/Vol] 171 mg/dL <200 mg/dL [facility] HDL Cholesterol, Nonfasting 39 mg/dL Low >39 mg/dL [facility] LDL Cholesterol, Nonfasting 103 mg/dL High <100 mg/dL [facility] LDL/HDL Ratio, Nonfasting 2.64 mg/dL High <2.54 mg/dL [facility] Non HDL Cholesterol, Nonfasting 132 mg/dL High <130 mg/dL [facility] Total Chol/HDL Ratio, Nonfasting 4.38 mg/dL <5.10 mg/dL [facility] Triglycerides, Nonfasting 144 mg/dL <150 mg/dL [facility] VLDL Cholesterol, Nonfasting 29 mg/dL <30 mg/dL [facility] TSH BLDon 03-02-2023 TSH Qn 2.130 m[IU]/L 0.270 - 4.200 mIU/L [facility] CBC W Auto Differential pane l (Bld)on 03-01-2023 Basophils (Bld) [#/Vol] 0.08 10*3/uL <0.11 k/uL [facility] Basophils/100 WBC (Bld) 1.0 % [facility] Differential cell count method Nom (Bld) Auto [facility] Eosinophils (Bld) [#/Vol] 0.33 10*3/uL <0.46 k/uL [facility] Eosinophils/100 WBC (Bld) 4.3 % [facility] Erythrocyte distribution width (RBC) [Ratio] 13.7 % 11.5 - 15.0 % [facility] Hematocrit (Bld) [Volume fraction] 46.8 % 39.0 - 51.0 % [facility] Hemoglobin (Bld) [Mass/Vol] 15.3 g/dL 13.0 - 17.0 g/dL [facility] Immature granulocytes (Bld) [#/Vol] <0.10 k/uL [facility] Immature granulocytes/100 WBC (Bld) 0.3 % [facility] Lymphocytes (Bld) [#/Vol] 2.17 10*3/uL 1.00 - 4.00 k/uL [facility] Lymphocytes/100 WBC (Bld) 28.1 % [facility] MCH (RBC) [Entitic mass] 28.0 pg 26.0 - 34.0 pg [facility] MCHC (RBC) [Mass/Vol] 32.7 g/dL 30.5 - 36.0 g/dL [facility] MCV (RBC) [Entitic vol] 85.7 fL 80.0 - 100.0 fL [facility] Monocytes (Bld) [#/Vol] 0.76 10*3/uL <0.87 k/uL [facility] Monocytes/100 WBC (Bld) 9.8 % [facility] Neutrophils (Bld) [#/Vol] 4.37 10*3/uL 1.45 - 7.50 k/uL [facility] Neutrophils/100 WBC (Bld) 56.5 % [facility] Nucleated RBC (Bld) [#/Vol] <0.01 k/uL [facility] Nucleated RBC/100 WBC (Bld) [Ratio] 0.0 /100 WBC [facility] Platelet mean volume (Bld) [Entitic vol] 11.4 fL 9.0 - 12.7 fL [facility] Platelets (Bld) [#/Vol] 247 10*3/uL 150 - 400 k/uL [facility] RBC (Bld) [#/Vol] 5.46 10*6/uL 4.20 - 6.0 0 m/uL [facility] WBC (Bld) [#/Vol] 7.73 10*3/uL 3.70 - 11. 00 k/uL [facility] US ABD RIGHT UPPER QUADRANTo n 12-20-2022 [facility] STREP A MOLECULAR (POC)on Procedural Control Valid [facility] Strep A (POCT) Positive Abnormal Negative [facility] No Panel Informationon 05-09 [facility] XR SHOULDER GENERAL 3V OR MO RE AP/TRUE AP/OTHER LEFTon 04-28-2022 [facility] Absolute lymphocyte counton 03-22-2022 Lymphocytes Auto (Unsp spec) [#/Vol] 1.76 10*3/uL 0.83-4.51 [facility] Work Phone: Basophil percentageon 2021 Basophils/100 WBC (Bld) 0.6 % 0-1 [facility] Work Phone: Bilirubin [Mass/Vol] 0.40 mg/dL 0.20-1.00 [facility] Work Phone: Comment on above: For patients on eltr ombopag therapy, use of Dimension [place] TBIL is not recommended. Chloride [Moles/Vol] 105 mmol/L 98-107 [facility] Work Phone: Eosinophils/100 WBC (Bld) 8.4 % 0-5 [facility] Work Phone: Glucose [Mass/Vol] 94 mg/dL 74-106 [facility] Work Phone: Neutrophils (Bld) [#/Vol] 5.9 10*3/uL 2.0-7.7 [facility] Work Phone: Neutrophils/100 WBC (Bld) 61.0 % 47-70 [facility] Work Phone: [phone] Potassium [Moles/Vol] 4.2 mmol/L 3.5-5.1 [facility] Work Phone: [phone] Protein [Mass/Vol] 7.8 g/dL 6.4-8.2 [facility] Work Phone: [phone] Sodium [Moles/Vol] 140 mmol/L 136-145 [facility] Work Phone: WBC (Bld) [#/Vol] 9.6 10*3/uL 4.4-11.0 [facility]: Blood erythrocytes count (nu mber/volume)on 03-22-2022 RBC (Bld) [#/Vol] 4.89 10*6/uL 4.6-6.2 [facility] Work Phone: Blood hemoglobin measurement (mass/volume)on 03-22-2022 Hemoglobin (Bld) [Mass/Vol] 14.5 g/dL 13.0-16.5 [facility] Work Phone: [phone] Blood lymphocytes/100 leukoc yteson 03-22-2022 Lymphocytes/100 WBC (Bld) 18.3 % 19-41 [facility] Work Phone: Blood monocytes/100 leukocyt eson 03-22-2022 Monocytes/100 WBC (Bld) 11.3 % 0-10 [facility] Work Phone: Blood platelet mean volumeon 03-22-2022 Platelet mean volume (Bld) [Entitic vol] 10.2 fL 6.2-12.0 [facility] Work Phone: Determination of erythrocyte mean corpuscular volume (MCV)on 03-22-2022 MCV (RBC) [Entitic vol] 90.6 fL 80-94 [facility] Work Phone: [phone] Hematocrit Auto (Bld) [Volum e fraction]on 03-22-2022 Hematocrit (Bld) [Volume fraction] 44.3 % 40-54 [facility] Work Phone: [phone] Laboratory - Chemistry and C hemistry - challengeon 03-22-2022 ALP [Catalytic activity/Vol] 96 U/L 45-117 [facility] Work Phone: [phone] ALT [Catalytic activity/Vol] 77 U/L 16-61 [facility] Work Phone: [phone] CO2 [Moles/Vol] 28.0 mmol/L 21.0-32.0 [facility] Work Phone: [phone] Globulin (S) [Mass/Vol] 4.2 g/dL 2.2-4.2 [facility] Work Phone: [phone] Urea nitrogen/Creatini ne [Mass ratio] 12.6 mg/mg 10-20 [facility] Work Phone: [phone] Laboratory - Hematology and Cell countson 03-22-2022 Erythrocyte distribution width (RBC) [Entitic vol] 45.1 fL 35.1-43.9 [facility] Work Phone: [phone] Erythrocyte distribution width (RBC) [Ratio] 13.5 % 11.6-14.6 [facility] Work Phone: [phone] Immature granulocytes/100 WBC (Bld) 0.400 % 0.0-0.9 [facility] Work Phone: [phone] Comment on above: IG% - Immature Granu locytes (promyelocytes, myelocytes and metamyelocytes) > 1% indicates that a LEFT SHIFT is Present. MCH (RBC) [Entitic mass] 29.7 pg 27.0-32.0 [facility] Work Phone: Nucleated RBC/100 WBC (Bld) [Ratio] 0 % 0-5 [facility] Work Phone: [phone] MCHC Auto (RBC) [Mass/Vol]on 03-22-2022 MCHC (RBC) [Mass/Vol] 32.7 g/dL 32-36 [facility] Work Phone: No Panel Informationon 03-22 Estimated GFR (MDRD) Amer 111 mL/min >60 [facility] Work Phone: Comment on above: GFR Calc Estimated GFR (MDRD) Non-Af Amer 92 mL/min >60 [facility] Work Phone: Comment on above: Non- GFR Calc Platelets bldon 03-22-2022 Platelets (Bld) [#/Vol] 262 10*3/uL 150-450 [facility] Work Phone: Serum or plasma albumin benigno urement (mass/volume)on 03-22-2022 Albumin [Mass/Vol] 3.6 g/dL 3.2-5.0 [facility] Work Phone: [phone] Serum or plasma albumin/glob ulin mass ratioon 03-22-2022 Albumin/Globulin [Mass ratio] 0.9 {ratio} 0.9-2.4 [facility] Work Phone: Serum or plasma calcium benigno urement (mass/volume)on 03-22-2022 Calcium [Mass/Vol] 9.0 mg/dL 8.5-10.1 [facility] Work Phone: Serum or plasma creatinine m easurement (mass/volume)on 03-22-2022 Creatinine [Mass/Vol] 1.03 mg/dL 0.70-1.30 [facility] Work Phone: Comment on above: The validity of the calculated GFR & GFRAA in patients over 70 years has not been determined. Clinical correlation is essential. Serum or plasma urea nitroge n measurement (mass/volume)on 03-22-2022 Urea nitrogen [Mass/Vol] 13 mg/dL 7-18 [facility] Work Phone: Thin prep Papanicolaou smear with manual screeningon 03-22-2022 Thin prep Papanicolaou smear with manual screening 38 U/L 15-37 [facility] Work Phone: Thin prep Papanicolaou smear with manual screening 7 5-15 [facility] Work Phone: UA DIP, URINE (POC)on 2021 BILIRUBIN UA (POCT) Negative Negative [facility] CLARITY UA (POCT) Cloudy [facility] COLOR UA (POCT) [place] [facility] GLUCOSE UA (POCT) Negative Negative mg/dL [facility] HEMOGLOBIN/BLOOD UA (POCT) Large Abnormal Negative [facility] KETONE UA (POCT) Negative Negative mg/dL [facility] LEUKOCYTES UA (POCT) Large Abnormal Negative [facility] NITRITE UA (POCT) Positive Abnormal Negative [facility] PH UA (POCT) 5.5 4.5 - 8.0 [facility] Protein Ql (U) 100 mg/dL Abnormal Negative mg/dL [facility] SPECIFIC GRAVITY UA (POCT) >=1.030 1.005 - 1.030 [facility] UROBILINOGEN UA (POCT) 0.2 E.U./dL Normal E.U./dL [facility] Vital Signs Date Time Vital Sign Value Performing Clinician Facility 02-09-2025 12:33-0400 Body height 187.96 cm Caryl LONGORIA Work Phone: [facility] 02-09-2025 12:33-0400 Body mass index (BMI) [Ratio] 29.4 kg/m2 Caryl LONGORIA Work Phone: [facility] 02-09-2025 12:33-0400 Body temperature 98 [degF] Caryl LONGORIA Work Phone: [facility] 02-09-2025 12:33-0400 Body weight 103.82 kg Caryl LONGORIA Work Phone: [facility] 02-09-2025 12:33-0400 Diastolic blood pressure 80 mm[Hg] Caryl LONGORIA Work Phone: [facility] 02-09-2025 12:33-0400 Heart rate 60 /min Caryl LONGORIA Work Phone: [facility] 02-09-2025 12:33-0400 Respiratory rate 16 /min Caryl Green PA Work Phone: [phone] [place] [address] 02-09-2025 12:33-0400 SaO2% (BldA) [Mass fraction] 100 % Caryl Green PA Work Phone: [facility] 02-09-2025 12:33-0400 Systolic blood pressure 130 mm[Hg] Caryl Green PA Work Phone: [phone] [place] [address] 02-05-2025 14:01-0400 Body weight 147.55 kg Caryl Green PA Work Phone: [phone] [place] [address] 02-05-2025 13:12-0400 Body height 187.96 cm Caryl Green PA Work Phone: [phone] [place] [address] 02-05-2025 13:12-0400 Body mass index (BMI) [Ratio] 41.8 kg/m2 Caryl Green PA Work Phone: [phone] [place] [address] 02-05-2025 13:12-0400 Body temperature 98.4 [degF] Caryl Green PA Work Phone: [phone] [place] [address] 02-05-2025 13:12-0400 Diastolic blood pressure 91 mm[Hg] Caryl Green PA Work Phone: [phone])058-647088 [place] [address] 02-05-2025 13:12-0400 Heart rate 81 /min Caryl Green PA Work Phone: [phone] [place] [address] 02-05-2025 13:12-0400 Respiratory rate 18 /min Caryl Green PA Work Phone: [phone] [place] [address] 02-05-2025 13:12-0400 SaO2% (BldA) [Mass fraction] 99 % Caryl Green PA Work Phone: [phone] [place] [address] 02-05-2025 13:12-0400 Systolic blood pressure 131 mm[Hg] Caryl Green PA Work Phone: [phone] [place] [address] 2025 04:24-0400 Body temperature 97.8 [degF] Caryl Green PA Work Phone: [facility] 2025 04:24-0400 Diastolic blood pressure 87 mm[Hg] Caryl Green PA Work Phone: [facility] 2025 04:24-0400 Heart rate 81 /min Caryl Green PA Work Phone: [facility] 2025 04:24-0400 Respiratory rate 16 /min Caryl Green PA Work Phone: [facility] 2025 04:24-0400 SaO2% (BldA) [Mass fraction] 99 % Caryl Green PA Work Phone: [facility] 2025 04:24-0400 Systolic blood pressure 125 mm[Hg] Caryl Green PA Work Phone: [phone] [place] [address] 02-01-2025 23:51-0400 Body height 187.96 cm Caryl Green PA Work Phone: [phone] [place] [address] 02-01-2025 23:51-0400 Body mass index (BMI) [Ratio] 42.8 kg/m2 Caryl Green PA Work Phone: [facility] 02-01-2025 23:51-0400 Body weight 151.45 kg Caryl Green PA Work Phone: [facility] 08-02-2024 10:25-0500 Body mass index (BMI) [Ratio] 37.59 kg/m2 Clarence Rodriguez MD Work Phone: [facility] 08-02-2024 10:25-0500 Body temperature 98.49 [degF] Clarence Rodriguez MD Work Phone: [facility] 08-02-2024 10:25-0500 Body weight 134.26 kg Clarence Rodriguez MD Work Phone: [facility] 08-02-2024 10:25-0500 Diastolic blood pressure 90 mm[Hg] Clarence Rodriguez MD Work Phone: [facility] 08-02-2024 10:25-0500 Heart rate 80 /min Clarence Rodriguez MD Work Phone: [facility] 08-02-2024 10:25-0500 Respiratory rate 18 /min Clarence Rodriguez MD Work Phone: [facility] 08-02-2024 10:25-0500 SaO2% (BldA) [Mass fraction] 97 % Clarence Rodriguez MD Work Phone: [facility] 08-02-2024 10:25-0500 Systolic blood pressure 118 mm[Hg] Clarence Rodriguez MD Work Phone: [facility] 07-08-2024 07:33-0500 Body mass index (BMI) [Ratio] 37.48 kg/m2 Clarence Giles SUBMARINE ELEMENT COORDINATOR.CONTINUITY CLERK Work Phone: [facility] 07-08-2024 07:33-0500 Body temperature 98.8 [degF] Clarence Giles SUBMARINE ELEMENT COORDINATOR.CONTINUITY CLERK Work Phone: [facility] 07-08-2024 07:33-0500 Body weight 133.87 kg Clarence Giles SUBMARINE ELEMENT COORDINATOR.CONTINUITY CLERK Work Phone: [facility] 07-08-2024 07:33-0500 Diastolic blood pressure 64 mm[Hg] Clarence Giles SUBMARINE ELEMENT COORDINATOR.CONTINUITY CLERK Work Phone: [facility] 07-08-2024 07:33-0500 Heart rate 90 /min Clarence Giles SUBMARINE ELEMENT COORDINATOR.CONTINUITY CLERK Work Phone: [facility] 07-08-2024 07:33-0500 Respiratory rate 16 /min Clarence Gabylevarsha SUBMARINE ELEMENT COORDINATOR.CONTINUITY CLERK Work Phone: [facility] 07-08-2024 07:33-0500 SaO2% (BldA) [Mass fraction] 97 % Clarence Giles SUBMARINE ELEMENT COORDINATOR.CONTINUITY CLERK Work Phone: [facility] 07-08-2024 07:33-0500 Systolic blood pressure 108 mm[Hg] Clarence Gabylevarsha SUBMARINE ELEMENT COORDINATOR.CONTINUITY CLERK Work Phone: [facility] 05-29-2024 14:46-0500 Body mass index (BMI) [Ratio] 37.49 kg/m2 Case Moomaw SUBMARINE ELEMENT COORDINATOR.CONTINUITY CLERK Work Phone: [facility] 05-29-2024 14:46-0500 Body temperature 97.81 [degF] Case Moomaw SUBMARINE ELEMENT COORDINATOR.CONTINUITY CLERK Work Phone: [facility] 05-29-2024 14:46-0500 Body weight 133.9 kg Case Moomaw SUBMARINE ELEMENT COORDINATOR.CONTINUITY CLERK Work Phone: [facility] 05-29-2024 14:46-0500 Diastolic blood pressure 78 mm[Hg] Case Moomaw SUBMARINE ELEMENT COORDINATOR.CONTINUITY CLERK Work Phone: [facility] 05-29-2024 14:46-0500 Heart rate 80 /min Case Moomaw SUBMARINE ELEMENT COORDINATOR.CONTINUITY CLERK Work Phone: [facility] 05-29-2024 14:46-0500 Respiratory rate 16 /min Case Moomaw SUBMARINE ELEMENT COORDINATOR.CONTINUITY CLERK Work Phone: [facility] 05-29-2024 14:46-0500 SaO2% (BldA) [Mass fraction] 97 % Case Moomaw SUBMARINE ELEMENT COORDINATOR.CONTINUITY CLERK Work Phone: [facility] 05-29-2024 14:46-0500 Systolic blood pressure 112 mm[Hg] Case Moomaw SUBMARINE ELEMENT COORDINATOR.CONTINUITY CLERK Work Phone: [facility] 11-13-2023 19:16-0400 Body temperature 97.9 [degF] [facility] 11-13-2023 19:16-0400 Diastolic blood pressure 74 mm[Hg] [facility] 11-13-2023 19:16-0400 Heart rate 80 /min [facility] 11-13-2023 19:16-0400 Respiratory rate 16 /min [facility] 11-13-2023 19:16-0400 SaO2% (BldA) [Mass fraction] 97 % [facility] 11-13-2023 19:16-0400 Systolic blood pressure 130 mm[Hg] [facility] 11-13-2023 18:28-0400 Body height 188.01 cm [facility] 11-13-2023 18:28-0400 Body mass index (BMI) [Ratio] 37.8 kg/m2 [facility] 11-13-2023 18:28-0400 Body weight 133.94 kg [facility] 11-13-2023 18:02-0400 Body mass index (BMI) [Ratio] 37.54 kg/m2 Zuleyma Praisler-Wood SUBMARINE ELEMENT COORDINATOR.CONTINUITY CLERK Work Phone: [facility] 11-13-2023 18:02-0400 Body temperature 98.01 [degF] Uzleyma Praisler-Wood SUBMARINE ELEMENT COORDINATOR.CONTINUITY CLERK Work Phone: [facility] 11-13-2023 18:02-0400 Body weight 134.1 kg Zuleyma Praisler-Wood SUBMARINE ELEMENT COORDINATOR.CONTINUITY CLERK Work Phone: [facility] 11-13-2023 18:02-0400 Diastolic blood pressure 68 mm[Hg] Zuleyma Praisler-Wood SUBMARINE ELEMENT COORDINATOR.CONTINUITY CLERK Work Phone: [facility] 11-13-2023 18:02-0400 Heart rate 77 /min Zuleyma Praisler-Wood SUBMARINE ELEMENT COORDINATOR.CONTINUITY CLERK Work Phone: [facility] 11-13-2023 18:02-0400 Respiratory rate 21 /min Zuleyma Praisler-Wood SUBMARINE ELEMENT COORDINATOR.CONTINUITY CLERK Work Phone: [facility] 11-13-2023 18:02-0400 SaO2% (BldA) [Mass fraction] 98 % Zuleyma Praisler-Wood SUBMARINE ELEMENT COORDINATOR.CONTINUITY CLERK Work Phone: [facility] 11-13-2023 18:02-0400 Systolic blood pressure 124 mm[Hg] Zuleyma Praisler-Wood SUBMARINE ELEMENT COORDINATOR.CONTINUITY CLERK Work Phone: [facility] 05-31-2023 18:22-0500 Body weight 125.65 kg Clarence Rodriguez MD Work Phone: [facility] 05-31-2023 18:22-0500 Diastolic blood pressure 74 mm[Hg] Clarence Rodriguez MD Work Phone: [facility] 05-31-2023 18:22-0500 Heart rate 62 /min Clarence Rodriguez MD Work Phone: [facility] 05-31-2023 18:22-0500 Respiratory rate 16 /min Clarence Rodriguez MD Work Phone: [facility] 05-31-2023 18:22-0500 Systolic blood pressure 114 mm[Hg] Clarence Rodriguez MD Work Phone: [facility] 04-20-2023 09:30-0400 Body temperature 97 [degF] Clarence Rodriguez MD Work Phone: [facility] 04-20-2023 09:30-0400 Body weight 125.19 kg Clarence Rodriguez MD Work Phone: [facility] 04-20-2023 09:30-0400 Diastolic blood pressure 64 mm[Hg] Clarence Rodriguez MD Work Phone: [facility] 04-20-2023 09:30-0400 Heart rate 58 /min Clarence Rodriguez MD Work Phone: [facility] 04-20-2023 09:30-0400 Respiratory rate 16 /min Clarence Rodriguez MD Work Phone: [facility] 04-20-2023 09:30-0400 Systolic blood pressure 110 mm[Hg] Clarence Rodriguez MD Work Phone: [facility] 03-04-2023 09:27-0400 Body temperature 97.39 [degF] Uma Barbara SUBMARINE ELEMENT COORDINATOR.CONTINUITY CLERK Work Phone: [facility] 03-04-2023 09:27-0400 Body weight 132.45 kg Uma Barbara SUBMARINE ELEMENT COORDINATOR.CONTINUITY CLERK Work Phone: [facility] 03-04-2023 09:27-0400 Diastolic blood pressure 62 mm[Hg] Uma Barbara SUBMARINE ELEMENT COORDINATOR.CONTINUITY CLERK Work Phone: [facility] 03-04-2023 09:27-0400 Heart rate 74 /min Uma Barbara SUBMARINE ELEMENT COORDINATOR.CONTINUITY CLERK Work Phone: [facility] 03-04-2023 09:27-0400 Respiratory rate 16 /min Uma Jimenez SUBMARINE ELEMENT COORDINATOR.CONTINUITY CLERK Work Phone: [facility] 03-04-2023 09:27-0400 SaO2% (BldA) [Mass fraction] 97 % Uma Jimenez SUBMARINE ELEMENT COORDINATOR.CONTINUITY CLERK Work Phone: [facility] 03-04-2023 09:27-0400 Systolic blood pressure 112 mm[Hg] Uma Jimenez SUBMARINE ELEMENT COORDINATOR.CONTINUITY CLERK Work Phone: [facility] 03-01-2023 16:09-0400 Body weight 132.9 kg Clarence Rodriguez MD Work Phone: [facility] 03-01-2023 16:09-0400 Diastolic blood pressure 84 mm[Hg] Clarence Rodriguez MD Work Phone: [facility] 03-01-2023 16:09-0400 Heart rate 70 /min Clarence Rodriguez MD Work Phone: [facility] 03-01-2023 16:09-0400 Respiratory rate 16 /min Clarence Rodriguez MD Work Phone: [facility] 03-01-2023 16:09-0400 Systolic blood pressure 122 mm[Hg] Clarence Rodriguez MD Work Phone: [facility] 10-19-2022 09:22-0400 Body temperature 98.01 [degF] Josselyn Hay SUBMARINE ELEMENT COORDINATOR.CONTINUITY CLERK Work Phone: [facility] 10-19-2022 09:22-0400 Body weight 156.67 kg Josselyn Hay SUBMARINE ELEMENT COORDINATOR.CONTINUITY CLERK Work Phone: [facility] 10-19-2022 09:22-0400 Diastolic blood pressure 84 mm[Hg] Josselyn Hay SUBMARINE ELEMENT COORDINATOR.CONTINUITY CLERK Work Phone: [facility] 10-19-2022 09:22-0400 Heart rate 102 /min Josselyn Hay SUBMARINE ELEMENT COORDINATOR.CONTINUITY CLERK Work Phone: [facility] 10-19-2022 09:22-0400 Respiratory rate 18 /min Josselyn Hay SUBMARINE ELEMENT COORDINATOR.CONTINUITY CLERK Work Phone: [facility] 10-19-2022 09:22-0400 SaO2% (BldA) [Mass fraction] 97 % Josselyn Hay SUBMARINE ELEMENT COORDINATOR.CONTINUITY CLERK Work Phone: [facility] 10-19-2022 09:22-0400 Systolic blood pressure 122 mm[Hg] Josselyn Hay SUBMARINE ELEMENT COORDINATOR.CONTINUITY CLERK Work Phone: [facility] 03-22-2022 13:46-0400 Body weight 151.05 kg Nae Haagen SUBMARINE ELEMENT COORDINATOR.CONTINUITY CLERK Work Phone: [facility] 03-22-2022 13:46-0400 Diastolic blood pressure 100 mm[Hg] Nae Chaudhariagen SUBMARINE ELEMENT COORDINATOR.CONTINUITY CLERK Work Phone: [facility] 03-22-2022 13:46-0400 Heart rate 98 /min Nae Haagen SUBMARINE ELEMENT COORDINATOR.CONTINUITY CLERK Work Phone: [facility] 03-22-2022 13:46-0400 Respiratory rate 18 /min Nae Domínguez SUBMARINE ELEMENT COORDINATOR.CONTINUITY CLERK Work Phone: [facility] 03-22-2022 13:46-0400 SaO2% (BldA) [Mass fraction] 98 % Nae Domínguez SUBMARINE ELEMENT COORDINATOR.CONTINUITY CLERK Work Phone: [facility] 03-22-2022 13:46-0400 Systolic blood pressure 146 mm[Hg] Nae Haagen SUBMARINE ELEMENT COORDINATOR.CONTINUITY CLERK Work Phone: [facility] 03-15-2022 11:19-0400 Body height 187.96 cm [facility] Work Phone: 03-15-2022 11:19-0400 Body mass index (BMI) [Ratio] 43.4 kg/m2 [facility] Work Phone: 03-15-2022 11:19-0400 Body temperature 97.9 [degF] [facility] Work Phone: 03-15-2022 11:19-0400 Body weight 153.31 kg [facility] Work Phone: 03-15-2022 11:19-0400 Diastolic blood pressure 96 mm[Hg] [facility] Work Phone: 03-15-2022 11:19-0400 Heart rate 89 /min [facility] Work Phone: 03-15-2022 11:19-0400 Respiratory rate 18 /min [facility] Work Phone: 03-15-2022 11:19-0400 SaO2% (BldA) [Mass fraction] 98 % [facility] Work Phone: 03-15-2022 11:19-0400 Systolic blood pressure 148 mm[Hg] [facility] Work Phone: 03-15-2022 11:00-0400 Body temperature 97.5 [degF] Adriana Gutierres SUBMARINE ELEMENT COORDINATOR.CONTINUITY CLERK Work Phone: [facility] 03-15-2022 11:00-0400 Body weight 153.77 kg Adriana Gutierres SUBMARINE ELEMENT COORDINATOR.CONTINUITY CLERK Work Phone: [facility] 03-15-2022 11:00-0400 Diastolic blood pressure 82 mm[Hg] Adriana Gutierres SUBMARINE ELEMENT COORDINATOR.CONTINUITY CLERK Work Phone: [facility] 03-15-2022 11:00-0400 Heart rate 94 /min Adriana Gutierres SUBMARINE ELEMENT COORDINATOR.CONTINUITY CLERK Work Phone: [facility] 03-15-2022 11:00-0400 Respiratory rate 16 /min Adriana Gutierres SUBMARINE ELEMENT COORDINATOR.CONTINUITY CLERK Work Phone: [facility] 03-15-2022 11:00-0400 SaO2% (BldA) [Mass fraction] 97 % Adriana Gutierres SUBMARINE ELEMENT COORDINATOR.CONTINUITY CLERK Work Phone: [facility] 03-15-2022 11:00-0400 Systolic blood pressure 128 mm[Hg] Adriana Gutierres SUBMARINE ELEMENT COORDINATOR.CONTINUITY CLERK Work Phone: [facility] 02-13-2022 19:51-0400 Body height 187.96 cm [facility] Work Phone: 02-13-2022 19:51-0400 Body mass index (BMI) [Ratio] 43.2 kg/m2 [facility] Work Phone: 02-13-2022 19:51-0400 Body temperature 94 [degF] [facility] Work Phone: 02-13-2022 19:51-0400 Body weight 153 kg [facility] Work Phone: 02-13-2022 19:51-0400 Diastolic blood pressure 95 mm[Hg] [facility] Work Phone: 02-13-2022 19:51-0400 Heart rate 95 /min [facility] Work Phone: 02-13-2022 19:51-0400 Respiratory rate 16 /min [facility] Work Phone: 02-13-2022 19:51-0400 SaO2% (BldA) [Mass fraction] 98 % [facility] Work Phone: 02-13-2022 19:51-0400 Systolic blood pressure 147 mm[Hg] [facility] Work Phone: 12-15-2021 12:02-0400 Body temperature 98.1 [degF] Caryl Green PA-C Work Phone: [facility] 12-15-2021 12:02-0400 Body weight 150.59 kg Caryl Green PA-C Work Phone: [facility] 12-15-2021 12:02-0400 Diastolic blood pressure 86 mm[Hg] Caryl Green PA-C Work Phone: [facility] 12-15-2021 12:02-0400 Heart rate 76 /min Caryl Green PA-C Work Phone: [facility] 12-15-2021 12:02-0400 Respiratory rate 18 /min Caryl Green PA-C Work Phone: [facility] 12-15-2021 12:02 Systolic blood pressure 116 mm[Hg] Caryl Green PA-C Work Phone: [facility] Encounters Encounter Date Encounter Type Care Provider Facility Start: 02-16-2025 Emergency department patient visit Ed Physician Provider Facility:[facility] Start: 02-09-2025 End: 02-09-2025 Emergency department patient visit Caryl LONGORIA Work Phone: -Emergency Department Work Phone: Start: 02-09-2025 End: 02-09-2025 ambulatory Jak BrisenoLoren Facility:[facility] Start: 02-05-2025 End: 02-05-2025 Emergency department patient visit Caryl LONGORIA Work Phone: -Emergency Department Work Phone: Start: 02-05-2025 End: 02-05-[address] Jak Bates DO -Emergency Department Work Phone: Start: 02-05-2025 End: 02-05-2025 ambulatory Jak BrisenoLoren Facility:[facility] Start: 02-01-2025 End: 2025 Emergency department patient visit Caryl LONGORIA Work Phone: -Emergency Department Work Phone: Start: 08-02-2024 End: 08-02-2024 ambulatory CLARENCE RODRIGUEZ Facility:[facility] Start: 08-02-2024 End: 08-02-2024 Patient encounter procedure Clarence Rodriguez MD Work Phone: [facility] [place] Comment on above: Tonsillitis (Primary Dx); Pharyngitis, unspecified etiology Start: 07-08-2024 End: 07-08-2024 ambulatory CLARENCE RODRIGUEZ Facility:[facility] Start: 07-08-2024 End: 07-08-2024 Office outpatient visit 25 minutes Clarence Giles APRN.CNP Work Phone: [facility] Comment on above: Sore throat (Primary Dx); Strep pharyngitis Start: 05-29-2024 End: 05-29-2024 ambulatory CLARENCE RODRIGUEZ Facility:[facility] Start: 05-29-2024 End: 05-29-2024 Patient encounter procedure Case Cross SUBMARINE ELEMENT COORDINATOR.CONTINUITY CLERK Work Phone: [facility] Comment on above: Sore throat (Primary Dx); Acute otitis media, right Start: 11-13-2023 End: 11-13-2023 Emergency department patient visit [facility]gency Department Work Phone: Start: 11-13-2023 End: 11-13-2023 ambulatory CLARENCE RODRIGUEZ Facility:[facility] Start: 11-13-2023 End: 11-13-2023 Patient encounter procedure Zuleyma Aldana SUBMARINE ELEMENT COORDINATOR.CONTINUITY CLERK Work Phone: [facility] Comment on above: Exposure to blood (P rimary Dx) Start: 08-09-2023 End: 08-09-2023 ambulatory CLARENCE RODRIGUEZ Facility:[facility] Start: 05-31-2023 End: 05-31-2023 Patient encounter procedure Clarence Rodriguez MD Work Phone: [facility] Comment on above: GERD without esophag itis (Primary Dx); Encounter for immunization Start: 05-19-2023 Non-patient / Non-visit SWATI LONGORIA Work Phone: [facility] Start: 05-19-2023 End: 05-19-2023 ambulatory SWATI LONGORIA Work Phone: [facility] Work Phone: Start: 05-19-2023 End: 05-19-2023 Patient encounter procedure SWATI LONGORIA Work Phone: [facility]-Cardiovascular Services Work Phone: Start: 05-03-2023 ambulatory Clarence miller MD Work Phone: [facility] Comment on above: Wait time Start: 04-20-2023 End: 04-20-2023 Patient encounter procedure Clarence Rodriguez MD Work Phone: [facility] [place] Comment on above: Atypical chest pain (Primary Dx); GERD without esophagitis; Family history of early CAD Start: 04-05-2023 ambulatory Clarence miller MD Work Phone: [facility] [place] Comment on above: Stomach meds Start: 03-04-2023 End: 03-04-2023 Subsequent hospital visit by physician Mojgan [facility] [place] Work Phone: Radiology Comment on above: Rib pain on left cristóbal e [R07.81] Start: 03-04-2023 End: 03-04-2023 Patient encounter procedure Uma Jimenez APRN.CONTINUITY CLERK Work Phone: [facility] Comment on above: Rib pain on left cristóbal e (Primary Dx) Start: 03-03-2023 Telephone encounter Caryl mendoza PA-C Work Phone: [facility] [place] Comment on above: Results Start: 03-01-2023 End: 03-01-2023 Patient encounter procedure Clarence Rodriguez MD Work Phone: [facility] [place] Comment on above: Well adult exam ([facility] Dx); LOCKHART (nonalcoholic steatohepatitis); SANJAY (generalized anxiety disorder); Panic attack; Screening for diabetes mellitus; Elevated LFTs; GERD without esophagitis; Heat intolerance; Candidiasis Start: 03-01-2023 End: 03-01-2023 Patient encounter status Clarence Rodriguez MD Work Phone: [facility] Work Phone: Start: 01-05-2023 Refill Tayler hussein SUBMARINE ELEMENT COORDINATOR.CONTINUITY CLERK Work Phone: Psychiatry Comment on above: Refill Request Start: 12-21-2022 Telephone encounter Caryl mendoza PA-C Work Phone: [facility] [place] Comment on above: Results Start: 12-20-2022 End: 12-20-2022 Subsequent hospital visit by physician [facility] Work Phone: Radiology Comment on above: Elevated LFTs [R79.8 9] Start: 11-02-2022 Refill Tayler J Rajgur u SUBMARINE ELEMENT COORDINATOR.CONTINUITY CLERK Work Phone: Psychiatry Comment on above: Refill Request Start: 10-19-2022 End: 10-19-2022 Patient encounter procedure Josselyn Hay SUBMARINE ELEMENT COORDINATOR.CONTINUITY CLERK Work Phone: [facility] Comment on above: Sorethroat (Primary Dx) Start: 09-09-2022 End: 09-09-2022 [facility] Tayler J Rajguru SUBMARINE ELEMENT COORDINATOR.CONTINUITY CLERK Work Phone: Psychiatry Comment on above: Panic disorder witho ut agoraphobia (Primary Dx) Start: 08-04-2022 Refill Tayler J Rajgur u SUBMARINE ELEMENT COORDINATOR.CONTINUITY CLERK Work Phone: Psychiatry Comment on above: Refill Request Start: 07-15-2022 End: 07-15-2022 [facility] Tayler J Rajguru SUBMARINE ELEMENT COORDINATOR.CONTINUITY CLERK Work Phone: Psychiatry Comment on above: Panic disorder witho ut agoraphobia (Primary Dx) Start: 06-24-2022 Refill Tayler J Rajgur u SUBMARINE ELEMENT COORDINATOR.CONTINUITY CLERK Work Phone: Psychiatry Comment on above: Refill Request Start: 05-10-2022 ambulatory Anuel Mckenna MD Work Phone: Orthopaedics Comment on above: Question regarding M RI SHOULDER WO IVCON LT Start: 05-09-2022 End: 05-09-2022 Subsequent hospital visit by physician Mri Radio [facility] (I-Stat/1.5t) Work Phone: Radiology Comment on above: Acute pain of left s houlder [M25.512] Start: 04-28-2022 End: 04-28-2022 Subsequent hospital visit by physician Xr [facility] [place] [facility] Work Phone: Radiology Comment on above: Acute pain of left s houlder [M25.512] Start: 04-28-2022 End: 04-28-2022 Patient encounter procedure Anuel Mckenna MD Work Phone: Orthopaedics Comment on above: Acute pain of left s gideon (Primary Dx); Traumatic complete tear of left rotator cuff, initial encounter Start: 04-08-2022 Telephone encounter Nae berger APRN.CONTINUITY CLERK Work Phone: [facility] Comment on above: Orders Start: 04-07-2022 End: 04-07-2022 ambulatory Cesar Slaughter [facility] Comment on above: Acute pain of left s gideon Start: 03-29-2022 ambulatory Nae Domínguez APRN.CONTINUITY CLERK Work Phone: [facility] Comment on above: Physical therapy Start: 03-25-2022 Telephone encounter Nae berger APRN.CONTINUITY CLERK Work Phone: [facility] Comment on above: Results Start: 03-23-2022 ambulatory Nae Domínguez APRN.CONTINUITY CLERK Work Phone: [facility] Comment on above: Pain relief Start: 03-22-2022 End: 03-22-2022 ambulatory [facility] Work Phone: Start: 03-22-2022 End: 03-22-2022 Patient encounter procedure [facility] Start: 03-22-2022 Telephone encounter Nae berger APRN.CONTINUITY CLERK Work Phone: [facility] Comment on above: Results Start: 03-22-2022 End: 03-22-2022 Office outpatient visit 25 minutes Nae Domínguez APRN.CONTINUITY CLERK Work Phone: [facility] Comment on above: Flank pain (Primary Dx); Acute cystitis with hematuria; Acute pain of left shoulder Start: 03-15-2022 End: 03-15-2022 Emergency department patient visit [facility]-Emergency Department Start: 03-15-2022 End: 03-15-2022 Patient encounter procedure Adriana Gutierres APRN.CONTINUITY CLERK Work Phone: [facility] Comment on above: Injury of head, init ial encounter (Primary Dx); Accident caused by farm tractor, initial encounter Start: 02-21-2022 End: 02-21-2022 [facility] Tayler Gonsalez SUBMARINE ELEMENT COORDINATOR.CONTINUITY CLERK Work Phone: Psychiatry Comment on above: Panic disorder witho ut agoraphobia (Primary Dx) Start: 02-13-2022 End: 02-13-2022 Emergency department patient visit [facility]Emergency Department Start: 01-21-2022 End: 01-21-2022 Patient encounter procedure Grey Filippo [employer] Work Phone: Psychology Comment on above: Severe anxiety (Prim sabrina Dx); Mild depression Start: 01-10-2022 Telephone encounter Grey Na ll [employer] F[employer] MANAGER Work Phone: Psychology Comment on above: Consult ([facility] C alling) Start: 12-30-2021 Telephone encounter Grey Na ll [employer] F[employer] MANAGER Work Phone: Psychology Comment on above: Consult ([facility] C alling) Start: 12-28-2021 Telephone encounter Grey Na ll [employer]ARM MANAGER Work Phone: Psychology Comment on above: Consult ([facility] Pt Out reach F/U) Start: 12-27-2021 Telephone encounter Grey Na ll [employer] MANAGER Work Phone: Psychology Comment on above: Consult ([facility] Pt Out reach F/U) Start: 12-23-2021 Telephone encounter Clarence Rodriguez MD Work Phone: [facility] Comment on above: Patient Question Start: 12-22-2021 Telephone encounter Grey Na ll [employer] MANAGER Work Phone: Psychology Comment on above: Consult (Initial [facility] Pt Outreach) Start: 12-21-2021 Telephone encounter Clarence Rodriguez MD Work Phone: [facility] Comment on above: Patient Update; Medi cation Problem Patient Update Start: 12-15-2021 End: 12-15-2021 Patient encounter procedure Caryl Green PA-C Work Phone: [facility] Comment on above: SANJAY (generalized anx iety disorder) (Primary Dx); Panic attack; Seasonal allergic rhinitis, unspecified trigger Start: 12-10-2021 Telephone encounter Caryl mendoza PA-C Work Phone: [facility] [place] Comment on above: Medication Question Start: 12-02-2021 Refill Clarence miller MD Work Phone: [facility] [place] Comment on above: Refill Request Refill Start: 03-19-2021 Patient encounter status Clarence Rodriguez MD Work Phone: [facility] Work Phone: Procedures Date Procedure Procedure Detail Performing Clinician Start: 07-08-2024 STREP A MOLECULAR (POC) Onel Chambers MD Work Phone: Start: 05-29-2024 STREP A MOLECULAR (POC) Adriana Gutierres SUBMARINE ELEMENT COORDINATOR.CONTINUITY CLERK Work Phone: Start: 05-31-2023 INFLUENZA VACCINE, A GE 6 MO - 64 YR, QUADRIVALENT (AFLURIA, FLULAVAL, FLUZONE) Clarence Rodriguez MD Work Phone: Start: 03-04-2023 Radex ribs uni w/pos teroant ch minimum 3 views Uma Jimenez SUBMARINE ELEMENT COORDINATOR.CONTINUITY CLERK Work Phone: Start: 12-20-2022 Us abdominal real [...] et rgnt auto w/o microscopy Nae Domínguez SUBMARINE ELEMENT COORDINATOR.CONTINUITY CLERK Work Phone: Start: 03-15-2022 X-ray of chest posteroanterior view Start: 03-15-2022 Plain X-ray of shoulder Start: 02-13-2022 Plain x-ray of hand Plan of Treatment Date Care Activity Detail Author Start: 02-14-2032 Urine microalbumin profile DTaP,Tdap,Td Vaccine (10 - Td or Tdap) [facility] Start: 01-04-2031 Urine microalbumin profile [facility] Start: 2025 [facility] Start: 03-24-2024 Covid-19 Vaccine () Covid-19 Vaccine () [facility] Start: 03-24-2024 Covid-19 Vaccine () Covid-19 Vaccine () [facility] Start: 03-24-2024 Influenza vaccination Influenza Vacc ine (#1) [facility] Start: 12-13-2023 COVID-19 VACCINE (#1) COVID-19 VACCI NE (#1) [facility] Comment on above: Postponed from 08/05 (Declined at this time) Start: 11-13-2023 [facility] Start: 11-13-2023 Hepatitis B surface antigen measurement [facility] Start: 11-13-2023 Hepatitis C antibody measurement [facility] Start: 07-24-2023 Behavioral Health Screening Behavioral Health Screening [facility] Start: 07-23-2023 [facility] Comment on above: Postponed from 07/24 (Declined at this time) Start: 03-24-2023 Covid-19 Vaccine () Covid-19 Vaccine () [facility] Start: 03-24-2023 Influenza vaccination [facility] Start: 12-21-2022 End: 02-20-2023 LIPID PANEL, NONFASTING LIPID PANEL, NONFASTING Lab Routine Fatty liver Encounter for lipid screening for cardiovascular disease Expected: 12/21/2022, Expires: 02/20/2023 [facility] Work Phone: Comment on above: Expected: 12/21/2022 , Expires: 02/20/2023 Start: 07-24-2022 [facility] Start: 03-24-2022 Influenza vaccination [facility] Start: 03-22-2022 End: 05-22-2022 CBC W Auto Differential panel - Blood CBC + DIFF Lab STAT Flank pain Expected: 03/22/2022, Expires: 05/22/2022 [facility] Work Phone: Comment on above: Expected: 03/22/2022 , Expires: 05/22/2022 Start: 03-22-2022 End: 05-22-2022 Comprehensive metabolic 2000 panel - Serum or Plasma COMP METABOLIC PANEL Lab STAT Flank pain Expected: 03/22/2022, Expires: 05/22/2022 [facility] Work Phone: Comment on above: Expected: 03/22/2022 , Expires: 05/22/2022 Start: 01-04-2022 COVID-19 VACCINE (#1) COVID-19 VACCI NE (#1) [facility] Comment on above: Postponed from 02/02 (Declined at this time) Start: 01-04-2022 HEPATITIS C SCREENING HEPATITIS C [facility] Comment on above: Postponed from 02/02 (Declined at this time) Start: 07-24-2021 DEPRESSION ASSESSMENT DEPRESSION ASS ESSMENT [facility] Start: 2013 Depression Screening Depression Scre ening [facility] Start: 2013 HEPATITIS C SCREENING HEPATITIS C [facility] Start: 2009 PEDS TO ADULT TRANSITION ANNUAL ASSESSMENT PEDS TO ADULT TRANSITION ANNUAL ASSESSMENT [facility] Start: 2007 PEDS TO ADULT TRANSITION INITIAL DISCUSSION PEDS TO ADULT TRANSITION INITIAL DISCUSSION [facility] Start: 2006 HPV VACCINE (1 - Mal e 2-dose series) HPV VACCINE (1 - Male 2-dose series) [facility] Start: 02-03-2000 COVID-19 VACCINE (#1) COVID-19 VACCI NE (#1) [facility] Start: 1995 COVID-19 VACCINE (#1) COVID-19 VACCI NE (#1) [facility] Bacteria identified in Urine by Culture URINE CULTURE Microbiology Routine Flank pain 03/22/2022 2:36 PM EDT [facility] Work Phone: End: 04-21-2023 Ct abdomen & pelvis w/o contrast material CT ABD/PEL WO IVCON Radiology STAT Flank pain 1 Occurrences starting 03/22/2022 until 04/21/2023 [facility] Work Phone: Comment on above: 1 Occurrences starti ng 03/22/2022 until 04/21/2023 End: 04-20-2024 ECG COMPLETE ECG COMPLETE ECG Routine Atypical chest pain 1 Occurrences starting 04/20/2023 until 04/20/2024 [facility] Work Phone: Comment on above: 1 Occurrences starti ng 04/20/2023 until 04/20/2024 End: 04-20-2024 EXERCISE STRESS ECG (WITHOUT IMAGING) EXERCISE STRESS ECG (WITHOUT IMAGING) Cardiology Routine Atypical chest pain Family history of early CAD 1 Occurrences starting 04/20/2023 until 04/20/2024 [facility] Work Phone: Comment on above: 1 Occurrences starti ng 04/20/2023 until 04/20/2024 Hepatitis B virus surface IgG Ab [Presence] in Serum [facility] HIV 1+2 Ab+HIV1 p24 Ag [Presence] in Serum or Plasma by Immunoassay [facility] Patient Education [facility] Work Phone: Patient referral [facility] Work Phone: Urinalysis complete panel - Urine URINALYSIS, WITH MICROSCOPIC Lab Routine Flank pain 03/22/2022 2:36 PM EDT [facility] Work Phone: XR SHOULDER GENERAL 3V OR MORE AP/TRUE AP/OTHER LEFT XR SHOULDER GENERAL 3V OR MORE AP/TRUE AP/OTHER LEFT Radiology Routine Acute pain of left shoulder 04/28/2022 11:45 AM EDT [facility] Work Phone: [facility] Immunizations Immunization Date Immunization Notes Care Provider [facility] 02-09-2025 rabies vaccine, for intramuscular injection Caryl LONGORIA Work Phone: [facility] 02-05-2025 rabies vaccine, for intramuscular injection Caryl LONGORIA Work Phone: [facility] 2025 rabies immune globulin Patricia LONGORIA Work Phone: [facility] 2025 rabies vaccine, for intramuscular injection Caryl LONGORIA Work Phone: [facility] 2025 tetanus toxoid, redu yanira diphtheria toxoid, and acellular pertussis vaccine, adsorbed Caryl LONGORIA Work Phone: [facility] 05-31-2023 influenza, injectabl e, quadrivalent, contains preservative Clarence Rodriguez MD Work Phone: [facility] 05-31-2023 influenza virus vacc ine, unspecified formulation Xr [place] Work Phone: [facility] 02-13-2022 tetanus toxoid, redu yanira diphtheria toxoid, and acellular pertussis vaccine, adsorbed [facility] 01-04-2021 tetanus toxoid, redu yanira diphtheria toxoid, and acellular pertussis vaccine, adsorbed Clarence Rodriguez MD Work Phone: [facility] 06-14-2019 influenza virus vacc ine, unspecified formulation Clarence Rodriguez MD Work Phone: [facility] 05-24-2019 Influenza virus vaccine [facility] 05-14-2016 tetanus toxoid, redu yanira diphtheria toxoid, and acellular pertussis vaccine, adsorbed Clarence Rodriguez MD Work Phone: [facility] 01-31-2011 hepatitis A vaccine, unspecified formulation Clarence Rodriguez MD Work Phone: [facility] Work Phone: 02-18-2009 hepatitis A vaccine, unspecified formulation Clarence Rodriguez MD Work Phone: [facility] Work Phone: 02-18-2009 Meningococcal, MCV4, unspecified conjugate formulation(groups A, C, Y and W-135) Clarence Rodriguez MD Work Phone: [facility] Work Phone: 02-21-2006 tetanus toxoid, redu yanira diphtheria toxoid, and acellular pertussis vaccine, adsorbed Clarence Rodriguez MD Work Phone: [facility] Work Phone: 07-04-2003 influenza virus vacc ine, unspecified formulation Clarence Rodriguez MD Work Phone: [facility] Work Phone: 03-03-2000 diphtheria, tetanus toxoids and acellular pertussis vaccine Clarence Rodriguez MD Work Phone: [facility] Work Phone: 03-03-2000 measles, mumps and rubella virus vaccine Clarence Rodriguez MD Work Phone: [facility] Work Phone: 03-03-2000 poliovirus vaccine, inactivated Clarence Rodriguez MD Work Phone: [facility] Work Phone: 07-24-1997 Chicken Pox (disease) Alex Rodriguez MD Work Phone: [facility] Work Phone: 05-07-1996 diphtheria, tetanus toxoids and acellular pertussis vaccine Clarence Rodriguez MD Work Phone: [facility] Work Phone: 05-07-1996 haemophilus influenz ae type b vaccine, HbOC conjugate Clarence Rodriguez MD Work Phone: [facility] Work Phone: 02-28-1996 measles, mumps and rubella virus vaccine Clarence Rodriguez MD Work Phone: [facility] Work Phone: 1995 diphtheria, tetanus toxoids and acellular pertussis vaccine Clarence Rodriguez MD Work Phone: [facility] Work Phone: 1995 haemophilus influenz ae type b vaccine, HbOC conjugate Clarence Rodriguez MD Work Phone: [facility] Work Phone: 1995 hepatitis B vaccine, pediatric or pediatric/adolescent dosage Clarence Rodriguez MD Work Phone: [facility] Work Phone: 1995 trivalent poliovirus vaccine, live, oral Clarence Rodriguez MD Work Phone: [facility] Work Phone: 1995 diphtheria, tetanus toxoids and acellular pertussis vaccine Clarence Rodriguez MD Work Phone: [facility] Work Phone: 1995 haemophilus influenz ae type b vaccine, HbOC conjugate Clarence Rodriguez MD Work Phone: [facility] Work Phone: 1995 trivalent poliovirus vaccine, live, oral Clarence Rodriguez MD Work Phone: [facility] Work Phone: 1995 diphtheria, tetanus toxoids and acellular pertussis vaccine Clarence Rodriguez MD Work Phone: [facility] Work Phone: 1995 haemophilus influenz ae type b vaccine, HbOC conjugate Clarence Rodriguez MD Work Phone: [facility] Work Phone: 1995 hepatitis B vaccine, pediatric or pediatric/adolescent dosage Clarence Rodriguez MD Work Phone: [facility] Work Phone: 1995 trivalent poliovirus vaccine, live, oral Clarence Rodriguez MD Work Phone: [facility] Work Phone: 1995 hepatitis B vaccine, pediatric or pediatric/adolescent dosage Clarence Rodriguez MD Work Phone: [facility] Work Phone: Payers Date Payer Category Payer Self-pay [id number] 2022 Unknown [id number] 2021 Unknown [id number] 2021 Unknown [id number] 2016 Medicaid [id number] Private Health Insurance [id number] Unknown [id number] Unknown [id number] Unknown [id number] Unknown [id number] Social History Date Type Detail Facility Start: 02-24-2011 End: 02-01-2025 Tobacco smoking status NYIS Never smoked tobacco [facility] Start: 08-12-2021 End: 08-02-2024 Alcohol intake Current non-drinker of alcohol (finding) [facility] Start: 09-16-2019 End: 12-12-2022 History SDOH Alcohol Frequency 1 [facility] Start: 09-16-2019 End: 12-12-2022 History SDOH Alcohol Std Drinks 98 [facility] Start: 07-25-2019 End: 12-12-2022 History SDOH Social Connections Phone 5 [facility] Start: 07-25-2019 End: 12-12-2022 History SDOH Social Connections Membership 2 [facility] Start: 07-25-2019 End: 12-12-2022 History SDOH Social Connections Living 3 [facility] Start: 07-25-2019 End: 12-12-2022 History SDOH Physical Activity MPS 6 [facility] Start: 07-25-2019 Education 12 [facility] Start: 1995 Sex Assigned At Male [facility] Start: 12-05-2021 End: 05-26-2022 Exposure to SARS-CoV-2 (event) Not sure [facility] Start: 02-13-2022 End: 11-13-2023 Tobacco smoking status NHIS Unknown if ever smoked [facility] Start: 07-18-2019 None [facility] Start: 07-18-2019 Spouse/ Significant Other;With Family [facility] Start: 11-24-2020 Chew [facility] Start: 02-24-2011 End: 03-22-2022 Tobacco use and exposure Smokeless tobacco non-user [facility] Start: 04-28-2022 Tobacco use and exposure User of smokeless tobacco [facility] Start: 12-12-2022 History SDOH Alcohol Std Drinks 0 [facility] Start: 03-01-2023 Tobacco use and exposure Former smokeless tobacco user [facility] Work Phone: End: 02-20-2023 History of tobacco use Chews Tobacco [facility] Work Phone: Start: 12-11-2022 End: 08-02-2024 History of Social function [facility] Start: 12-11-2022 End: 08-02-2024 Social connection and isolation panel [facility] Do you belong to any clubs or organizations such as yarsani groups, unions, fraternal or athletic groups, or school groups? No [facility] How often do you att end meetings of the clubs or organizations you belong to? Patient refused [facility] Are you now , , , , never or living with a partner? [facility] How often to you hav e a drink containing alcohol? Never [facility] Do you feel stress - tense, restless, nervous, or anxious, or unable to sleep at night because your mind is troubled all the time - these days [OSQ] Very much [facility] (I/We) worried wendy er (my/our) food would run out before (I/we) got money to buy more. Never true [facility] Start: 12-18-2020 Gender identity Identifies as male gender (finding) [facility] Start: 12-18-2020 Sexual orientation Heterosexual (finding) [facility] Clinical Notes 08-16-2019 to 08-02-2024 Clarence Rodriguez MD - 08/02/2024 10:23 AM Clarence Santillan APRN.CONTINUITY CLERK - 07/08/2024 7:54 AM Case Jean Baptiste APRN.CONTINUITY CLERK - 05/29/2024 2:57 PM Clarence Hernandez MD - 05/31/2023 5:56 PM EST Note Date & Type Note Facility 08-02-2024 Note HNO ID: [id number] Author: CLARENCE RODRIGUEZ MD Service: ? Author [...] Relation Age of Onset Heart Maternal Grandfather [place] Hypertension Mother None Father Heart Maternal Uncle [...] to ENT for tonsillectomy. Clarence Rodriguez MD [facility] 08-02-2024 History of Presen t illness Narrative [...] Relation Age of Onset Heart Maternal Grandfather ND Hypertension Mother None Father Heart Maternal Uncle [...] Clarence Rodriguez MD documented in this encounter [facility] 07-08-2024 Note HNO ID: [id number] Author: CLARENCE GILES APRN.CONTINUITY CLERK Service: ? Author Type: Nurse Practitioner Type: [...] Relation Age of Onset Heart Maternal Grandfather ND Hypertension Mother None Father Heart Maternal Uncle [...] amoxicillin. Patient was (more content not included)... [facility] 07-08-2024 History of Presen t illness Narrative [...] Relation Age of Onset Heart Maternal Grandfather ND Hypertension Mother None Father Heart Maternal Uncle [...] of care. This note was generated using [employer] software. It may contain errors in wording, punctuation, or spelling. Clarence Giles APRN.VINITA documented in this encounter [facility] 05-29-2024 Note HNO ID: [id number] Author: CASE CROSS APRN.VINITA Service: ? Author Type: Nurse Practitioner Type: Progress Notes Filed: 05/29/2024 15:04 Note Text: This note was created using Isomark. Subjective Aldair Yepez is a 29 year [...] - AMOXICILLIN 875 MG TABLET Case Cross APRN.CONTINUITY CLERK [facility] 05-29-2024 History of Presen t illness Narrative This note was created using NoteWriter. Subjective Aldair Yepez is a 29 year [...] - AMOXICILLIN 875 MG TABLET Case Cross APRN.CNP documented in this encounter [facility] 11-13-2023 Note HNO ID: [id number] Author: ZULEYMA ALDANA APRN.CNP Service: ? Author Type: Nurse Practitioner [...] Relation Age of Onset Heart Maternal Grandfather ND Hypertension Mother None Father Heart Maternal Uncle [...] ER as advised. Zuleyma Aldana APRN.[facility] 11-13-2023 History of Presen t illness [...] Relation Age of Onset Heart Maternal Grandfather ND Hypertension Mother None Father Heart Maternal Uncle [...] go to ER as advised. Zuleyma Aldana APRN.CONTINUITY CLERK documented in this encounter [facility] 08-09-2023 Note HNO ID: [id number] Author: CLARENEC RODRIGUEZ MD Service: ? Author Type: Physician [...] and a maternal grandfather who of a ND in either his 40-50's. Past medical history, [...] Relation Age of Onset Heart Maternal Grandfather ND Hypertension Mother None Father Heart Maternal Uncle [...] Tdap) due on (more content not included)... [facility] 05-31-2023 History of Presen t illness Narrative [...] and a maternal grandfather who of a ND in either his 40-50's. Patient does not [...] Relation Age of Onset Heart Maternal Grandfather ND Hypertension Mother None Father Heart Maternal Uncle [...] Clarence Rodriguez MD documented in this encounter [facility] 05-05-2023 Miscellaneous Notes Order was faxed by isma and put into filing cabinet Patient notified and given scheduling number for [facility] if not contacted Appointment was made for 4 weeks Karen Novak Ma Form ready to be faxed. Let patient know we are sending order for stress to [facility]. Patient needs a f/u visit for GERD in about 4 weeks Form completed and given to provider. And referral placed Patricia Carpenter MA Isma can we fax an order over to [facility] to do a treadmill stress test. Dx: R07.89 and Z82.49 Patient needs a f/u visit for GERD in about [address] Rodriguez: No future stress test or 3-4 week f/u for GERD/chest pain scheduled in at this time. Wilda Burgess MA documented in this encounter [facility] 04-20-2023 History of Presen t illness [...] and a maternal grandfather who of a ND in either his 40-50's. Patient does not [...] Relation Age of Onset Heart Maternal Grandfather ND Hypertension Mother None Father Heart Maternal Uncle [...] Clarence Rodriguez MD documented in this encounter [facility] 04-12-2023 Miscellaneous Notes Pt has appointment scheduled with Caryl 04/20/23. Vika Hernandez LPN Attempted to schedule pt for office visit but was unable to do so d/t insurance (reached denial tree). Pt advised to contact office to speak with scheduling for appt. Michael Hernandez LPN Patient will need seen in office. documented in this encounter [facility] 03-04-2023 History of Presen t illness [...] 2023 10:02 AM documented in this encounter [facility] 03-04-2023 History of Presen t illness Narrative Images from the original note were not included. Subjective The history is provided by the patient. No bilingual speech language pathologist was used. HPI Aldair Yepez is a [...] have confirmed and edited as necessary, the [facility] Review of Systems Constitutional: Negative [...] detail warranting prompt ER evaluation. Uma Jimenez APRN.VINITA documented in this encounter [facility] 03-03-2023 Miscellaneous Notes Patient notified of results and provider's instructions. Patient verbalizes understanding. Vika Hernandez LPN Let patient know that overall labs look okay/stable. Keep working on diet and weight loss to help with cholesterol and fatty liver. Caryl Green PA-C documented in this encounter [facility] 03-01-2023 Instructions Clarence Rodriguez MD - 03/01/2023 4:45 PM EDT Please get labs done on or after 08/18/2023 prior to your next visit. documented in this encounter [facility] 03-01-2023 History of Presen t illness [...] Relation Age of Onset Heart Maternal Grandfather ND Hypertension Mother None Father Heart Maternal Uncle [...] Abs Lymph 1.00 - 4.00 k/uL 1.59 Mccurtain% % 8.9 Abs Mccurtain <0.87 k/uL 0.62 Eosin% % 4.4 Abs [...] Clarence Rodriguez MD documented in this encounter [facility] 01-06-2023 Miscellaneous Notes Patient has been [...] Beth Murphy LPN documented in this encounter [facility] 12-21-2022 Miscellaneous Notes Spoke with patient. [...] Caryl Green PA-C documented in this encounter [facility] 12-20-2022 History of Presen t illness [...] 2022 11:04 AM documented in this encounter [facility] 11-03-2022 Miscellaneous Notes Patient has been [...] Beth Murphy LPN documented in this encounter [facility] 10-19-2022 History of Presen t illness [...] Relation Age of Onset Heart Maternal Grandfather ND Hypertension Mother None Father Heart Maternal Uncle [...] Josselyn Hay APRN.CNP documented in this encounter [facility] 09-09-2022 Instructions Tayler Gonsalez APRN.CNP - [...] - Call the National Suicide Hotline at 1-868-CYKTCNN ( ) or 9-447-373-TALK (0021) - Text 2VYHJ to 254811 Medication Update: Stop Paxil. Venlafaxine 150 mg XR - take 1 capsule once daily. Propranolol 40 mg - take 1 tablet up to twice daily as needed. Next appointment: --Schedule in 4 to 6 weeks or sooner if needed -- You may call the department appointment line at [phone] to schedule your appointment. -- Please call my nurse Mary Beth at [phone] or send me a message in [employer] with any questions or concerns between appointments. documented in this encounter [facility] 09-09-2022 History of Presen t illness [...] which included preparing to see the patient, [id number] patient care, completing clinical documentation, and counseling and educating the patient/family/caregiver, ordering medications/labs. Tayler Gonsalez APRN.VINITA September 09, 2022 3:29 PM This note was partially generated using [employer] voice recognition system. Note was reviewed for accuracy. There may be minor misspellings or grammar miscues with [employer] voice recognition. documented in this encounter [facility] 08-05-2022 Miscellaneous Notes Patient notified and [...] advise. Thank you. documented in this encounter [facility] 07-15-2022 Instructions Tayler Gonsalez APRN.CNP - [...] - Call the National Suicide Hotline at 4-882-AWLAKPV ( ) or 5-420-550-TALK (8922) - Text 4HOPE to 482058 Medication Update: Starting today, decrease Paxil to [...] may call the department appointment line at [phone] to schedule your appointment. -- Please call my nurse Mary Beth at [phone] or send me a message in [employer] with any questions or concerns between appointments. documented in this encounter [facility] 07-15-2022 History of Presen t illness [...] which included preparing to see the patient, [id number] patient care, completing clinical documentation, and counseling and educating the patient/family/caregiver, ordering medications/labs. Tayler Gonsalez APRN.VINITA July 15, 2022 2:56 PM This note was partially generated using [employer] voice recognition system. Note was reviewed for accuracy. There may be minor misspellings or grammar miscues with Dragon voice recognition. documented in this encounter [facility] 06-24-2022 Miscellaneous Notes Patient's spouse requesting [...] Devi Gross RN documented in this encounter [facility] 05-09-2022 History of Presen t illness [...] 2022 11:44 AM documented in this encounter [facility] 04-28-2022 History of Presen t illness [...] 2022 11:36 AM documented in this encounter [facility] 04-28-2022 History of Presen t illness Narrative Anuel Mckenna MD Department of Orthopaedics Orthopaedics [address] [place] [id number] Dept: [phone] Dept April 28, 2022 CHIEF COMPLAINT: New and Pain of the Left Shoulder HPI Patient here today for left shoulder pain x 1.5 months. 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 He was seen at [facility] after the injury. He was referred [...] age indeterminate fracture in the greater tuberosity. Environmental Department Manager: [facility] Transcribe Date/Time: Apr 29 2022 2:28P Dictated [...] Relation Age of Onset Heart Maternal Grandfather ND Hypertension Mother None Father Heart Maternal Uncle [...] PHYSICIAN: Mr. Aldair Yepez was referred to id for consultation by the following physician. This consultation note will be sent to the following physician by either mail or electronic medical record. Anuel Mckenna [address] [facility] [address] Clarence Rodriguez MD [address] [facility] [address] Anuel Mckenna MD documented in this encounter [facility] 04-08-2022 Miscellaneous Notes Received a message from PT. Concerned about a significant rotator cuff tear. Referral placed for ortho. Encouraged to schedule back for follow-up. Nae Domínguez APRN.CNP documented in this encounter [facility] 04-07-2022 History of Presen t illness [...] further evaluation from primary care physician or exercise equipment specialist for further imaging and updated plan of care. Goals for Episode of Care: created on 04/07/22 through 05/07/22 [facility] in home exercise program. Patient will decrease pain rating by 2 points to meet minimal clinical important difference for numeric pain rating scale. Perform ADL's with decreased report of symptoms/pain in 12 weeks. Perform work tasks and functions without pain. Planned Interventions, Frequency, and Duration: Current Frequency: 2x/week Duration: 4 weeks Total Number of Visits Planned: 8 Planned Treatment Interventions: Therapeutic exercise (09980);Neuromuscular re-education (78845);Manual therapy (82997);Therapeutic activities (71926);Self-halfway management (53599) PLAN FOR NEXT VISIT: Pt to follow up with PCP or exercise equipment specialist Patient demonstrates good understanding of plan of care and treatment. The above goals and plan of care were discussed and agreed upon by patient/family. SUBJECTIVE: Aldair Yepez is a 27 year old male seen today for Pt presents approximately 3 weeks following a hospital security officer accident in which the mower rolled and [...] Minutes (timed/untimed): 25 Geovanni Pedersen, SPT Cesar Slaughter, PT Supervising therapist was present and guided the care of the patient for the entire session on this date. All documentation was reviewed and agreed upon. Cesar Slaughter PT documented in this encounter [facility] 03-29-2022 Miscellaneous Notes Referral placed. Please help schedule. Nae Domínguez APRN.VINITA Ok to order PT for shoulder? Or do you want pt to come in again? documented in this encounter [facility] 03-29-2022 Miscellaneous Notes See MC message. [...] Nae Domínguez APRN.VINITA documented in this encounter [facility] 03-23-2022 Miscellaneous Notes Pt notified. He [...] pain medication is not helping. Was given [place]. Urine Cx in process. Nhi Rueda Ma documented in this encounter [facility] 03-23-2022 Miscellaneous Notes MC message's read [...] note were not included. Labs copied from [employer]: MC message to pt. Michael Hernandez LPN Can please let patient know that I received his CT results from [facility]. Thankfully, everything looked normal. He does [...] Nae Domínguez APRN.VINITA documented in this encounter [facility] 03-22-2022 History of Presen t illness Narrative This is a 27 year old male who presents today with: Patient presents with: ER F/U: [facility] ER follow up 03/15 dx: mower rolled over on him HISTORY OF PRESENT ILLNESS: Aldair Yepez is a 27 year old male. Patient presents with: ER F/U: [facility] ER follow up 03/15 dx: mower [...] Relation Age of Onset Heart Maternal Grandfather ND Hypertension Mother None Father Heart Maternal Uncle [...] as needed for worsening/no improvement. Nae Domínguez APRN.CONTINUITY CLERK This note was partially generated using [employer] voice recognition system. Note was reviewed for accuracy. There may be minor misspellings or grammar miscues with [employer] voice recognition. documented in this encounter [facility] 03-15-2022 History of Presen t illness Narrative 27 year old male presents with complaints of flipping hospital security officer. 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 States that it tipped, He ultimately fell [...] ED Declines EMS. documented in this encounter [facility] 02-21-2022 Instructions Tayler Gonsalez APRN.CNP - [...] - Call the National Suicide Hotline at 0-555-CEYDHAI ( ) or 4-699-701-TALK (1262) - Text 5LOPE to 973332 Medication Update: - Paxil 40 mg - [...] may call the department appointment line at [phone] to schedule your appointment. -- Please call my nurse Mary Beth at [phone] or send me a message in [employer] with any questions or concerns between appointments. documented in this encounter [facility] 02-21-2022 History of Presen t illness [...] Grey Barkley, [facility]'s note of 01/21/2022: Pt is a 26yr [...] anxiety when he is trying to leave [place]. When he starts to leave town, he [...] None Phobias: no irrational fears Memory: Good, jail. Okay short term. Anxiety: high when he [...] All other systems negative. Per Grey Barkley [facility]'s note of 01/21/2022: PSYCHIATRIC HISTORY: Prior Diagnosis: Anxiety Disorder Last Hospitalization: None Location of Hospitalization : N/A Reason for hospitalization/Length of Stay: N/A Psychiatrist/ CONTINUITY CLERK: seen by psychiatrist x1 at [facility], no meds prescribed Therapist: seeing counselor at [facility], x1 wkly Tow Truck Dispatcher: None Mental Health Agency/Practice: [facility] Did you the previous treatment helpful? Not helpful ECT: no Previous Discontinued Psychiatric Med Trials: See HPI Per Grey Barkley [facility]'s note of 01/21/2022: SUBSTANCE USE HISTORY: Nicotine: [...] N/A, No history of use or dependence Candy Separator Hard : N/A, No history of use or dependence Previous Treatments/ AA, NA, CA, etc.: denies Have you ever practiced sobriety: Not Applicable Are you interested in CD treatment? 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 denied any past legal history SPIRITUALITY/NONDENOMINATIONAL: Hinduism FAMILY PSYCHIATRIC/SUBSTANCE USE HISTORY: Sister-Anxiety Disorder and [...] which included preparing to see the patient, [id number] patient care, completing clinical documentation, obtaining and/or reviewing separately obtained history, counseling and educating the patient/family/caregiver, ordering medications, tests, or procedures, communicating with other HCPs (not separately reported) and independently interpreting results (not separately reported). ADD ON PSYCHOTHERAPY CODE : No SIGNATURE: Tayler Gonsalez APRN.CNP PATIENT NAME: Aldair Yepez DATE: February 21, 2022 TIME: 8:20 AM PAGER : documented in this encounter [facility] 01-21-2022 History of Presen t illness Narrative Behavioral Health Social Work Assessment Patient was seen for an initial evaluation. All information is from patient report except when noted. This evaluation is NOT intended for forensic, disability, or child custody purposes. Informed consent was discussed and signed by the patient. -Pt was sent jael comer with consent for tx -Pt read mychart msg, agreed [facility] Assessment: Virtual *Pt lost connection after 40 minutes -unable to reconnect -completed assessment via phone Pt location: In [facility] location: Chiquita NGUYEN PRESENT: Self Patient identified for [facility] from: PCP (Crayl Green, PaC) Reason for referral: [facility] Assessment (failed mental health tx, SANJAY,panic) [facility] encounter type: Virtual Visit Attempts to Outreach: [...] -will inform [facility] of his decision Medical History: PAST MEDICAL [...] EDUCATION: High School Diploma 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 denied any past legal history SPIRITUALITY/NONDENOMINATIONAL: Hinduism PFSH: Patient was born and raised in [place], [place], patient is the middle of 3 [...] Reason for hospitalization/Length of Stay: N/A Psychiatrist/ CONTINUITY CLERK: seen by psychiatrist x1 at [facility], no meds prescribed Therapist: seeing counselor at [facility], x1 wkly Tow Truck Dispatcher: None Mental Health Agency[facility]Practice[facility] Did [...] N/A, No history of use or dependence Candy Separator Hard : N/A, No history of use or [...] and 8 0 (none) to 10 (worst) [id number] Mood: positive for the most part Affect: [...] no meds prescribed -interested in seeing psych foundry worker apprentice Plan: -Pt was scheduled with Tayler Gonsalez [...] to cont with current counselor -will inform SW of his decision [facility] will send Pt Mary Beth's number, to contact her once financially cleared DIAGNOSIS: PRIMARY: 1: Anxiety Disorder severe Other: Depressive D/O mild RESOURCES PROVIDED: Internal: psychiatry External- has counselor at [facility], seen x1 wkly OTHER- N/A In case of a mental health emergency, contact Crisis line [phone] or report to your closest ER. MANSOOR De La Vega documented in this encounter [facility] 01-10-2022 Miscellaneous Notes Behavioral Health Social Work Progress Note Patient identified for SW from: PCP (Chu Zhao) Reason for referral: SW Assessment (failed mental health tx, SANJAY,panic) SW encounter type: Telephone Encounter Attempts to Outreach: [...] appt -wants to have Pt see psych foundry worker apprentice without having to see BHSW -anxiety is getting worse SW sent msg to psych foundry worker apprentice -her 1st available is mid to last January and was advised for Pt to keep bh assessment BHSW contacted Pt's -informed her needs to keep bh assessment - requested to sched psych foundry worker apprentice appt now -informed Pt will still need to keep bh assessment - agreed SW sent msg to psych foundry worker apprentice -Pt is allowed to sched psych foundry worker apprentice prior to completing bh assessment -if does not complete bh assessment psych foundry worker apprentice appt will automatically be cancelled -contacted INOCENTE Clinton, to contact to sched with Tayler Gonsalez CNP -she agreed to contact B[facility]W contacted Pt's and informed of the above -she agreed BHSW pointed out due to needing financial clearance of each visit the appt may not be able to be scheduled MANSOOR De La Vega January 10, 2022 documented in this encounter [facility] 12-30-2021 Miscellaneous Notes Behavioral Health Social Work Progress Note Patient identified for [facility] from: PCP (Caryl Green PaC) Reason for referral: [facility] Assessment (failed mental health tx, SANJAY,panic) [facility] encounter type: Telephone Encounter Attempts to Outreach: 6 attempts Final Disposition: Resources given (12-30-21 informed needs to contact [employer] dept, insurance company to find covered network [...] to tx his anxiety -offered following resource: [place] [address] [facility] requested inform [facility] if she is able to get financial clearance or schedules an appt elsewhere. No further contact is indicated at this time MANSOOR De La Vega December 30, 2021 documented in this encounter [facility] 12-28-2021 Miscellaneous Notes Behavioral Health Social Work Progress Note Patient identified for [facility] from: PCP (Caryl Green, Chu) Reason for referral: [facility] Assessment (failed mental health tx, SANJAY,panic) [facility] encounter type: Telephone Encounter Attempts to Outreach: 4 attempts Final Disposition: Other (12-28-21 Informed , unable to sched appt due to insurance out of network) Patient Discharged?: Yes Patient reported that caregiver was able to meet their needs today?: N/A [facility] received a msg from patient scheduler Pt is unable to be scheduled -insurance [...] worked out -[facility] recommended inquiring about covered behavioral health services when talking with the insurance. agreed to inform [facility] of the outcome of her conversation with the insurance No further contact is indicated -will wait to hear from MANSOOR De La Vega December 28, 2021 documented in this encounter [facility] 12-27-2021 Miscellaneous Notes Behavioral Health Social Work Progress Note Patient identified for [facility] from: PCP (Chu Zhao) Reason for referral: [facility] Assessment (failed mental health tx, SANJAY,panic) [facility] encounter type: Telephone Encounter Attempts to Outreach: 2 attempts Referral made: Psychology - Internal Psychology-Internal referral type: (scheduled bh assessment for 01-07-22 at 9am virtual) SW received a msg from Chu Zhao - would like for Pt to see F psychiatry provider [facility] attempted to contact Pt -no answer -left vm SW contacted -scheduled bh assessment for 01-07-22 at 9am virtual -[facility] with [facility]t info, consent for tx, PHQ9 and GAD7 MANSOOR De La Vega December 27, 2021 documented in this encounter [facility] 12-27-2021 Miscellaneous Notes Spoke with and [...] message for pt's to contact office. Vika Henrandez LPN Please talk with patient/ to clarify. Didn't he have a psychiatrist visit yesterday. He told our [facility] on 12/22 that he had a visit [...] Alia Nuñez RN documented in this encounter [facility] 12-22-2021 Miscellaneous Notes BEHAVIORAL HEALTH SOCIAL WORK CONSULT NOTE Service Date: December 22, 2021 Patient was identified by name and Patient: Aldair Yepez [address] [place] [address] (home) [phone] (cell) PCP: Clarence Rodriguez MD [address] [facility] [id number] Patient identified for [facility] from: PCP (Chu Zhao) Reason for referral: [facility] Assessment (failed mental health tx, SANJAY,panic) [facility] encounter type: Telephone Encounter Assessment: [facility] received a consult from Chu Zhao, for assessment failed mental health tx, SANJAY, panic [facility] reviewed Pt's chart/insurance [facility] contacted Pt -he was unaware [facility] would be calling -stated has been communicating with Drs office -reported he is receiving services from [facility], on line service -has seen a counselor -has an appt with a psychiatrist tomorrow at 8am Prefers to cont with current providers and not switch services at this time -Pt thanked [facility] for calling [facility] notified Chu Zhao, has services and will [...] De La Vega documented in this encounter [facility] 12-21-2021 Miscellaneous Notes noted Patient's calls and states that patient is feeling better. states that patient is just going to stop taking medication. Patient is not going to ER. Chely Rainey RN documented in this encounter [facility] 12-21-2021 Miscellaneous Notes Spoke with pt's . She advises that he is not back to normal and will take pt to [facility] ER as instructed by Caryl. Vika [...] at work now. documented in this encounter [facility] 12-15-2021 History of Presen t illness [...] Relation Age of Onset Heart Maternal Grandfather ND Hypertension Mother None Father Heart Maternal Uncle [...] If not improving, can set up with ceramics instructor. Caryl Green PA-C documented in this encounter [facility] 12-10-2021 Miscellaneous Notes Patient spouse was [...] together? Please advise documented in this encounter [facility] 12-03-2021 Miscellaneous Notes Spoke with pt's and she states she will [facility] Vika Hernandez LPN Patient [...] advise. Clementina Christina documented in this encounter [facility] 12-03-2021 Miscellaneous Notes Already addressed. Last refill 05/12/21 Qty: 30 with 5 refills Last ov 08/12/21 No appt scheduled Vika Hernandez LPN documented in this encounter [facility] 08-16-2019 History of Past i llness Narrative Problem Noted Date Resolved Date Globus sensation 08/16/2019 09/16/2019 documented as of this encounter (statuses as of 12/03/2021) [facility] of Past illness Narrative* Problem Noted Date Resolved Date Globus sensation 08/16/2019 09/16/2019 documented as of this encounter (statuses as of 12/03/2021) [facility] Narrative* Problem Noted Date Resolved Date Globus sensation 08/16/2019 09/16/2019 documented as of this encounter (statuses as of 12/10/2021) [facility] of Past illness Narrative* Problem Noted Date Resolved Date Globus sensation 08/16/2019 09/16/2019 documented as of this encounter (statuses as of 12/15/2021) [address] History of Past illness Narrative* Problem Noted Date Resolved Date Globus sensation 08/16/2019 09/16/2019 documented as of this encounter (statuses as of 12/21/2021) [address] History of Past illness Narrative* Problem Noted Date Resolved Date Globus sensation 08/16/2019 09/16/2019 documented as of this encounter (statuses as of 12/21/2021) [address] History of Past illness Narrative* Problem Noted Date Resolved Date Globus sensation 08/16/2019 09/16/2019 documented as of this encounter (statuses as of 12/22/2021) [place] [address] History of Past illness Narrative* Problem Noted Date Resolved Date Globus sensation 08/16/2019 09/16/2019 documented as of this encounter (statuses as of 12/27/2021) [place] [address] History of Past illness Narrative* Problem Noted Date Resolved Date Globus sensation 08/16/2019 09/16/2019 documented as of this encounter (statuses as of 12/28/2021) [place] [address] History of Past illness Narrative* Problem Noted Date Resolved Date Globus sensation 08/16/2019 09/16/2019 documented as of this encounter (statuses as of 12/30/2021) [place] [address] History of Past illness Narrative* Problem Noted Date Resolved Date Globus sensation 08/16/2019 09/16/2019 documented as of this encounter (statuses as of 01/10/2022) [place] [address] History of Past illness Narrative* Problem Noted Date Resolved Date Globus sensation 08/16/2019 09/16/2019 documented as of this encounter (statuses as of 01/21/2022) [place] [address] History of Past illness Narrative* Problem Noted Date Resolved Date Globus sensation 08/16/2019 09/16/2019 documented as of this encounter (statuses as of 02/21/2022) [place] [address] History of Past illness Narrative* Problem Noted Date Resolved Date Globus sensation 08/16/2019 09/16/2019 documented as of this encounter (statuses as of 03/15/2022) [place] [address] History of Past illness Narrative* Problem Noted Date Resolved Date Globus sensation 08/16/2019 09/16/2019 documented as of this encounter (statuses as of 03/22/2022) [place] [address] History of Past illness Narrative* Problem Noted Date Resolved Date Globus sensation 08/16/2019 09/16/2019 documented as of this encounter (statuses as of 03/23/2022) [place] [address] History of Past illness Narrative* Problem Noted Date Resolved Date Globus sensation 08/16/2019 09/16/2019 documented as of this encounter (statuses as of 03/23/2022) [place] [address] History of Past illness Narrative* Problem Noted Date Resolved Date Globus sensation 08/16/2019 09/16/2019 documented as of this encounter (statuses as of 03/29/2022) [place] [address] History of Past illness Narrative* Problem Noted Date Resolved Date Globus sensation 08/16/2019 09/16/2019 documented as of this encounter (statuses as of 04/07/2022) [place] [address] History of Past illness Narrative* Problem Noted Date Resolved Date Globus sensation 08/16/2019 09/16/2019 documented as of this encounter (statuses as of 04/08/2022) [place] [address] History of Past illness Narrative* Problem Noted Date Resolved Date Globus sensation 08/16/2019 09/16/2019 documented as of this encounter (statuses as of 04/29/2022) [place] [address] History of Past illness Narrative* Problem Noted Date Resolved Date Globus sensation 08/16/2019 09/16/2019 documented as of this encounter (statuses as of 05/10/2022) [place] [address] History of Past illness Narrative* Problem Noted Date Resolved Date Globus sensation 08/16/2019 09/16/2019 documented as of this encounter (statuses as of 05/10/2022) [place] [address] History of Past illness Narrative* Problem Noted Date Resolved Date Globus sensation 08/16/2019 09/16/2019 documented as of this encounter (statuses as of 05/16/2022) [place] [address] History of Past illness Narrative* Problem Noted Date Resolved Date Globus sensation 08/16/2019 09/16/2019 documented as of this encounter (statuses as of 06/24/2022) [place] [address] History of Past illness Narrative* Problem Noted Date Resolved Date Globus sensation 08/16/2019 09/16/2019 documented as of this encounter (statuses as of 07/17/2022) [place] [address] History of Past illness Narrative* Problem Noted Date Resolved Date Globus sensation 08/16/2019 09/16/2019 documented as of this encounter (statuses as of 08/05/2022) [place] [address] History of Past illness Narrative* Problem Noted Date Resolved Date Globus sensation 08/16/2019 09/16/2019 documented as of this encounter (statuses as of 09/14/2022) [place] [address] History of Past illness Narrative* Problem Noted Date Resolved Date Globus sensation 08/16/2019 09/16/2019 documented as of this encounter (statuses as of 10/19/2022) [place] [address] History of Past illness Narrative* Problem Noted Date Resolved Date Globus sensation 08/16/2019 09/16/2019 documented as of this encounter (statuses as of 11/03/2022) [place] [address] History of Past illness Narrative* Problem Noted Date Resolved Date Globus sensation 08/16/2019 09/16/2019 documented as of this encounter (statuses as of 12/21/2022) [place] [address] History of Past illness Narrative* Problem Noted Date Resolved Date Globus sensation 08/16/2019 09/16/2019 documented as of this encounter (statuses as of 01/06/2023) [place] [address] History of Past illness Narrative* Problem Noted Date Diagnosed Date Resolved Date Globus sensation 08/16/2019 09/16/2019 documented as of this encounter (statuses as of 03/03/2023) [place] [address] History of Past illness Narrative* Problem Noted Date Diagnosed Date Resolved Date Globus sensation 08/16/2019 09/16/2019 documented as of this encounter (statuses as of 03/04/2023) [place] [address] History of Past illness Narrative* Problem Noted Date Diagnosed Date Resolved Date Globus sensation 08/16/2019 09/16/2019 documented as of this encounter (statuses as of 03/04/2023) [place] [address] History of Past illness Narrative* Problem Noted Date Diagnosed Date Resolved Date Globus sensation 08/16/2019 09/16/2019 documented as of this encounter (statuses as of 04/12/2023) [place] [address] History of Past illness Narrative* Problem Noted Date Diagnosed Date Resolved Date Globus sensation 08/16/2019 09/16/2019 documented as of this encounter (statuses as of 04/21/2023) [facility] Narrative* Problem Noted Date Diagnosed Date Resolved Date Globus sensation 08/16/2019 09/16/2019 documented as of this encounter (statuses as of 05/05/2023) [facility] of Past illness Narrative* Problem Noted Date Diagnosed Date Resolved Date Globus sensation 08/16/2019 09/16/2019 documented as of this encounter (statuses as of 05/28/2023) [address] History of Past illness Narrative* Problem Noted Date Diagnosed Date Resolved Date Globus sensation 08/16/2019 09/16/2019 documented as of this encounter (statuses as of 06/01/2023) [facility] note* Diagnosis SANJAY (generalized anxiety disorder)- Primary Generalized anxiety disorder Panic attack Panic disorder without agoraphobia Seasonal allergic rhinitis, unspecified trigger documented in this encounter [facility] note* Diagnosis Severe anxiety- Primary Mild depression Depressive disorder, not elsewhere classified documented in this encounter [facility] noteNo assessment information availableWBucyrus [facility] Work Phone: Evaluation note* Diagnosis Panic disorder without agoraphobia- Primary [facility] Diagnosis Injury of head, initial encounter- Primary Accident caused by farm tractor, initial encounter [facility]* Diagnosis Flank pain- Primary Abdominal pain, unspecified site Acute cystitis with hematuria Acute cystitis Acute pain of left shoulder [facility] Diagnosis Flank pain Abdominal pain, unspecified site Acute pain of left shoulder [facility] Diagnosis Acute pain of left shoulder- Primary [facility] Diagnosis Acute pain of left shoulder documented in this encounter [facility] [facility] Diagnosis Acute pain of left shoulder- Primary [facility] Diagnosis Acute pain of left shoulder- Primary Traumatic complete tear of left rotator cuff, initial encounter [facility] Diagnosis Panic disorder without agoraphobia- Primary [facility] Diagnosis Panic disorder without agoraphobia- Primary [facility] Diagnosis Sorethroat- Primary Acute pharyngitis [facility] Diagnosis Fatty liver- Primary Other chronic nonalcoholic liver disease Encounter for lipid screening for cardiovascular disease Screening for lipoid disorders [facility] Diagnosis Well adult exam- Primary [...] of unspecified site [facility] Diagnosis Rib pain on left side- Primary Chest pain, unspecified [facility] Diagnosis Atypical chest pain- Primary Other chest pain GERD without esophagitis Esophageal reflux Family history of early CAD Family history of ischemic heart disease [facility] Diagnosis Elevated LFTs Other abnormal blood chemistry [facility] Diagnosis GERD without esophagitis- Primary Esophageal reflux Encounter for immunization Need for other specified prophylactic vaccination against single bacterial disease [facility] Diagnosis Exposure to blood- Primary Personal history of contact with and (suspected) exposure to potentially hazardous body fluids [facility] Diagnosis Rib pain on left side Chest pain, unspecified [facility] Diagnosis Sore throat- Primary Acute pharyngitis Acute otitis media, right Unspecified otitis media [facility] Diagnosis Sore throat- Primary Acute pharyngitis Strep pharyngitis Streptococcal sore throat [facility] Diagnosis Tonsillitis- Primary Acute tonsillitis Pharyngitis, unspecified etiology [facility] instructions[facility] Instructions Please stay away from raccoons. Follow-up with your primary care physician. You received your rabies immunoglobulin and vaccine here in the emergency department. You need to have recurrent rabies vaccines on day 3, day 7, day 14 from when you were bit.[facility] Work Phone: [facility] (narrative)* Diagnostic Procedure Only (Urgent) - Pending Review Specialty Diagnoses / Procedures Referred By Contac t Referred To Contact XR IMAGING Diagnoses Rib pain on left side Procedures XR RIBS/CHEST 3V AP RIB/OBLS/CXR LEFT RADEX RIBS UNI W/POSTEROANT CH MINIMUM 3 VIEWS Uma Jimenez, BLAKE.CONTINUITY CLERK [address] [place] [address] Xr Imaging Referral ID Status Reason Start Date Expiration Date Visits Requested Visits Authorized [id number] Pending Review Auto-Generat ed Referral 03/04/2023 04/02/2024 1 1 [facility] for referral (narrative)* Outpatient Procedure (Routine) - Denied Specialty Diagnoses / Procedures Referred By Contac t Referred To Contact [facility] Diagnoses Atypical chest pain Procedures ECG COMPLETE ECG ROUTINE ECG W/LEAST 12 LDS W/I&R Clarence Rodriguez MD [address] [place] [address] [facility] [place] [address] [place] [address] Referral ID Status Reason Start Date Expiration Date V isits Requested Visits Authorized [id number] Denied Auto-Generate d Referral 04/20/2023 04/19/2024 1 0 T [facility] for referral (narrative)* Diagnostic Procedure Only (Routine) - Closed Specialty Diagnoses / Procedures Referred By Contac t Referred To Contact US IMAGING Diagnoses Elevated LFTs Procedures US ABD RIGHT UPPER QUADRANT US ABDOMINAL REAL TIME W/IMAGE LIMITED Caryl Green PA-C [address] [place] [address] Us Imaging [id number] Referral ID Status Reason Start Date Expiration Date V isits Requested Visits Authorized [id number] Closed Patient Cleared - True Self-Pay required payment collected 12/13/2022 01/12/2024 1 1 [facility] for referral (narrative)* Diagnostic Procedure Only (Urgent) - Denied Specialty Diagnoses / Procedures Referred By Contac t Referred To Contact XR IMAGING Diagnoses Rib pain on left side Procedures XR RIBS/CHEST 3V AP RIB/OBLS/CXR LEFT RADEX RIBS UNI W/POSTEROANT CH MINIMUM 3 VIEWS Uma Jimenez APRN.CONTINUITY CLERK [address] [place] [address] [place] [address] Referral ID Status Reason Start Date Expiration Date Visits Re quested Visits Authorized [id number] Denied 03/04/2023 04/02/2024 1 0 [facility] for referral (narrative)No reason for referral information [facility] Narrative* Diagnostic Procedure Only (Routine) - Denied Specialty Diagnoses / Procedures Referred By Contac t Referred To Contact XR IMAGING Diagnoses Acute pain of left shoulder Procedures XR SHOULDER GENERAL 3V OR MORE AP/TRUE AP/OTHER LEFT RADEX SHOULDER COMPLETE MINIMUM 2 VIEWS Anuel Mckenna MD [address] [place] [address] Xr Imaging Referral ID Status Reason Start Date Expiration Date V isits Requested Visits Authorized [id number] Denied Auto-Generate d Referral OON/Self Pay Override 04/28/2022 05/28/2023 1 0 [facility] for visit Narrative* Diagnostic Procedure Only (Urgent) - Denied Specialty Diagnoses / Procedures Referred By Contac t Referred To Contact XR IMAGING Diagnoses Rib pain on left side Procedures XR RIBS/CHEST 3V AP RIB/OBLS/CXR LEFT RADEX RIBS UNI W/POSTEROANT CH MINIMUM 3 VIEWS Uma Jimenez APRN.CONTINUITY CLERK [address] [place] [id number] [place] [address] Referral ID Status Reason Start Date Expiration Date Visits Re quested Visits Authorized [id number] Denied 03/04/2023 04/02/2024 1 0 [facility] Advance Directives No Advanced Directives Records FoundDocuments on File Type Date Recorded 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 PAIN Chief Complaint Other chest pain [...] ABD & PELVIS W/O CONTRAST Nae Domínguez, SUBMARINE ELEMENT COORDINATOR.CONTINUITY CLERK [address] [place] [address] Ct Imaging Referral ID Status Reason Start Date Expiration Date V isits Requested Visits Authorized [id number] Closed Auto-Generate d Referral 03/22/2022 04/21/2023 1 1 Specialty Diagnoses / Procedures Referred By Mario robbins Referred To Contact [facility] Diagnoses Acute pain of left shoulder Procedures CONSULT TO PHYSICAL THERAPY PHYSICAL THERAPY EVALUATION HIGH COMPLEX 45 MINS Nae Domínguez, SUBMARINE ELEMENT COORDINATOR.CONTINUITY CLERK [address] [place] [address] [facility] [place] [address] [place] [address] Referral ID Status Reason Start Date Expiration Date Visits Requested Visits Authorized [id number] Pending Review Auto-Generat ed Referral 03/29/2022 03/29/2023 1 1 Specialty Diagnoses / Procedures Referred By Contac t Referred To Contact Orthopedics Diagnoses Acute pain of left shoulder Procedures CONSULT TO ORTHOPAEDICS OFFICE/OUTPATIENT NEW HIGH MDM 60-74 MINUTES Nae Domínguez APRN.CONTINUITY CLERK [id number] [place] [address] Referral ID Status Reason Start Date Expiration Date V isits Requested Visits Authorized [id number] Denied PCP Requested Referral 04/08/2022 04/08/2023 1 0 Specialty Diagnoses / Procedures Referred By Contac t Referred To Contact MR IMAGING Diagnoses Acute pain of left shoulder Traumatic complete tear of left rotator cuff, initial encounter Procedures MRI SHOULDER WO IVCON LT MRI ANY JT UPPER EXTREMITY W/O CONTRAST MATRL Anuel Mckenna MD [address] [place] [id number] Mr Imaging Referral ID Status Reason Start Date Expiration Date Visits Requested Visits Authorized [id number] Closed Auto-Generated Referral Patient cleared - OON Required Payment Collected OON Notification Letter 04/28/2022 05/28/2023 1 1 Specialty Diagnoses / Procedures Referred By Contac t Referred To Contact XR IMAGING Diagnoses Acute pain of left shoulder Procedures XR SHOULDER GENERAL 3V OR MORE AP/TRUE AP/OTHER LEFT RADEX SHOULDER COMPLETE MINIMUM 2 VIEWS Anuel Mckenna MD [address] [place] [phone] Xr Imaging Referral ID Status Reason Start Date Expiration Date V isits Requested Visits Authorized [id number] Denied Auto-Generate d Referral OON/Self Pay Override [...] or prosecute any alcohol or drug abuse patient.[facility] the event this information is protected by the Federal Confidentiality of Alcohol and Drug Abuse Patient Records regulations: The Federal rules restrict any use of the information to criminally investigate or prosecute any alcohol or drug abuse patient.[facility] the event this information is protected by the Federal Confidentiality of Alcohol and Drug Abuse Patient Records regulations: The Federal rules restrict any use of the information to criminally investigate or prosecute any alcohol or drug abuse patient.[facility] the event this information is protected by the Federal Confidentiality of Alcohol and Drug Abuse Patient Records regulations: The Federal rules restrict any use of the information to criminally investigate or prosecute any alcohol or drug abuse patient.[facility] the event this information is protected by the Federal Confidentiality of Alcohol and Drug Abuse Patient Records regulations: The Federal rules restrict any use of the information to criminally investigate or prosecute any alcohol or drug abuse patient.[facility] the event this information is protected by the Federal Confidentiality of Alcohol and Drug Abuse Patient Records regulations: The Federal rules restrict any use of the information to criminally investigate or prosecute any alcohol or drug abuse patient.[facility] the event this information is protected by the Federal Confidentiality of Alcohol and Drug Abuse Patient Records regulations: The Federal rules restrict any use of the information to criminally investigate or prosecute any alcohol or drug abuse patient.[facility] the event this information is protected by the Federal Confidentiality of Alcohol and Drug Abuse Patient Records regulations: The Federal rules restrict any use of the information to criminally investigate or prosecute any alcohol or drug abuse patient.[facility] the event this information is protected by the Federal Confidentiality of Alcohol and Drug Abuse Patient Records regulations: The Federal rules restrict any use of the information to criminally investigate or prosecute any alcohol or drug abuse patient.[facility] the event this information is protected by the Federal Confidentiality of Alcohol and Drug Abuse Patient Records regulations: The Federal rules restrict any use of the information to criminally investigate or prosecute any alcohol or drug abuse patient.[facility] the event this information is protected by the Federal Confidentiality of Alcohol and Drug Abuse Patient Records regulations: The Federal rules restrict any use of the information to criminally investigate or prosecute any alcohol or drug abuse patient.[facility] the event this information is protected by the Federal Confidentiality of Alcohol and Drug Abuse Patient Records regulations: The Federal rules restrict any use of the information to criminally investigate or prosecute any alcohol or drug abuse patient.[facility] the event this information is protected by the Federal Confidentiality of Alcohol and Drug Abuse Patient Records regulations: The Federal rules restrict any use of the information to criminally investigate or prosecute any alcohol or drug abuse patient.[facility] the event this information is protected by the Federal Confidentiality of Alcohol and Drug Abuse Patient Records regulations: The Federal rules restrict any use of the information to criminally investigate or prosecute any alcohol or drug abuse patient.[facility] the event this information is protected by the Federal Confidentiality of Alcohol and Drug Abuse Patient Records regulations: The Federal rules restrict any use of the information to criminally investigate or prosecute any alcohol or drug abuse patient.[facility] the event this information is protected by the Federal Confidentiality of Alcohol and Drug Abuse Patient Records regulations: The Federal rules restrict any use of the information to criminally investigate or prosecute any alcohol or drug abuse patient.[facility] the event this information is protected by the Federal Confidentiality of Alcohol and Drug Abuse Patient Records regulations: The Federal rules restrict any use of the information to criminally investigate or prosecute any alcohol or drug abuse patient.[facility] the event this information is protected by the Federal Confidentiality of Alcohol and Drug Abuse Patient Records regulations: The Federal rules restrict any use of the information to criminally investigate or prosecute any alcohol or drug abuse patient.[facility] the event this information is protected by the Federal Confidentiality of Alcohol and Drug Abuse Patient Records regulations: The Federal rules restrict any use of the information to criminally investigate or prosecute any alcohol or drug abuse patient.[facility] the event this information is protected by the Federal Confidentiality of Alcohol and Drug Abuse Patient Records regulations: The Federal rules restrict any use of the information to criminally investigate or prosecute any alcohol or drug abuse patient.[facility] the event this information is protected by the Federal Confidentiality of Alcohol and Drug Abuse Patient Records regulations: The Federal rules restrict any use of the information to criminally investigate or prosecute any alcohol or drug abuse patient.[facility] the event this information is protected by the Federal Confidentiality of Alcohol and Drug Abuse Patient Records regulations: The Federal rules restrict any use of the information to criminally investigate or prosecute any alcohol or drug abuse patient.[facility] the event this information is protected by the Federal Confidentiality of Alcohol and Drug Abuse Patient Records regulations: The Federal rules restrict any use of the information to criminally investigate or prosecute any alcohol or drug abuse patient.[facility] the event this information is protected by the Federal Confidentiality of Alcohol and Drug Abuse Patient Records regulations: The Federal rules restrict any use of the information to criminally investigate or prosecute any alcohol or drug abuse patient.[facility] the event this information is protected by the Federal Confidentiality of Alcohol and Drug Abuse Patient Records regulations: The Federal rules restrict any use of the information to criminally investigate or prosecute any alcohol or drug abuse patient.[facility] the event this information is protected by the Federal Confidentiality of Alcohol and Drug Abuse Patient Records regulations: The Federal rules restrict any use of the information to criminally investigate or prosecute any alcohol or drug abuse patient.[facility] the event this information is protected by the Federal Confidentiality of Alcohol and Drug Abuse Patient Records regulations: The Federal rules restrict any use of the information to criminally investigate or prosecute any alcohol or drug abuse patient.[facility] the event this information is protected by the Federal Confidentiality of Alcohol and Drug Abuse Patient Records regulations: The Federal rules restrict any use of the information to criminally investigate or prosecute any alcohol or drug abuse patient.[facility] the event this information is protected by the Federal Confidentiality of Alcohol and Drug Abuse Patient Records regulations: The Federal rules restrict any use of the information to criminally investigate or prosecute any alcohol or drug abuse patient.[facility] the event this information is protected by the Federal Confidentiality of Alcohol and Drug Abuse Patient Records regulations: The Federal rules restrict any use of the information to criminally investigate or prosecute any alcohol or drug abuse patient.[facility] the event this information is protected by the Federal Confidentiality of Alcohol and Drug Abuse Patient Records regulations: The Federal rules restrict any use of the information to criminally investigate or prosecute any alcohol or drug abuse patient.[facility] the event this information is protected by the Federal Confidentiality of Alcohol and Drug Abuse Patient Records regulations: The Federal rules restrict any use of the information to criminally investigate or prosecute any alcohol or drug abuse patient.[facility] the event this information is protected by the Federal Confidentiality of Alcohol and Drug Abuse Patient Records regulations: The Federal rules restrict any use of the information to criminally investigate or prosecute any alcohol or drug abuse patient.[facility] the event this information is protected by the Federal Confidentiality of Alcohol and Drug Abuse Patient Records regulations: The Federal rules restrict any use of the information to criminally investigate or prosecute any alcohol or drug abuse patient.[facility] the event this information is protected by the Federal Confidentiality of Alcohol and Drug Abuse Patient Records regulations: The Federal rules restrict any use of the information to criminally investigate or prosecute any alcohol or drug abuse patient.[facility] the event this information is protected by the Federal Confidentiality of Alcohol and Drug Abuse Patient Records regulations: The Federal rules restrict any use of the information to criminally investigate or prosecute any alcohol or drug abuse patient.[facility] the event this information is protected by the Federal Confidentiality of Alcohol and Drug Abuse Patient Records regulations: The Federal rules restrict any use of the information to criminally investigate or prosecute any alcohol or drug abuse patient.[facility] the event this information is protected by the Federal Confidentiality of Alcohol and Drug Abuse Patient Records regulations: The Federal rules restrict any use of the information to criminally investigate or prosecute any alcohol or drug abuse patient.[facility] the event this information is protected by the Federal Confidentiality of Alcohol and Drug Abuse Patient Records regulations: The Federal rules restrict any use of the information to criminally investigate or prosecute any alcohol or drug abuse patient.[facility] the event this information is protected by the Federal Confidentiality of Alcohol and Drug Abuse Patient Records regulations: The Federal rules restrict any use of the information to criminally investigate or prosecute any alcohol or drug abuse patient.[facility] the event this information is protected by the Federal Confidentiality of Alcohol and Drug Abuse Patient Records regulations: The Federal rules restrict any use of the information to criminally investigate or prosecute any alcohol or drug abuse patient.[facility] the event this information is protected by the Federal Confidentiality of Alcohol and Drug Abuse Patient Records regulations: The Federal rules restrict any use of the information to criminally investigate or prosecute any alcohol or drug abuse patient.[facility] the event this information is protected by the Federal Confidentiality of Alcohol and Drug Abuse Patient Records regulations: The Federal rules restrict any use of the information to criminally investigate or prosecute any alcohol or drug abuse patient.[facility] the event this information is protected by the Federal Confidentiality of Alcohol and Drug Abuse Patient Records regulations: The Federal rules restrict any use of the information to criminally investigate or prosecute any alcohol or drug abuse patient.[facility] the event this information is protected by the Federal Confidentiality of Alcohol and Drug Abuse Patient Records regulations: The Federal rules restrict any use of the information to criminally investigate or prosecute any alcohol or drug abuse patient.[facility] the event this information is protected by the Federal Confidentiality of Alcohol and Drug Abuse Patient Records regulations: The Federal rules restrict any use of the information to criminally investigate or prosecute any alcohol or drug abuse patient.[facility] the event this information is protected by the Federal Confidentiality of Alcohol and Drug Abuse Patient Records regulations: The Federal rules restrict any use of the information to criminally investigate or prosecute any alcohol or drug abuse patient.[facility] Reason for Visit (unrecogniz ed section and content) Reason Comments Follow Up Specialty Diagnoses / Procedures Referred By Mario t Referred To Contact FAMILY MEDICINE Diagnoses gerd/chest pain follow up Procedures OFFICE/OUTPATIENT ESTABLISHED MOD MDM 30-39 MIN Clarence Piedra MD [address] [place] [address] [facility] [address] [place] [address] Referral ID Status Reason Start Date Expiration Date Visits Requested Visits Authorized [id number] Closed Financial Clearance Required - OON Payor OON Notification Letter Patient cleared - OON Required Payment Collected 04/20/2023 07/19/2023 1 1 Specialty Diagnoses / Procedures Referred By Mario robbins Referred To Contact ADULT PSYCHIATRY Diagnoses Virtual Procedures Virtual Tayler Gonsalez, SUBMARINE ELEMENT COORDINATOR.[facility] [address] [place] [address] [facility] [address] [place] [address] Referral ID Status Reason Start Date Expiration Date Visits Requested Visits Authorized [id number] Closed Financial Clearance Required - OON Payor [...] OFFICE VISIT Self Caryl Green PA-C [address] [place] [address] Referral ID Status Reason Start Date Expiration Date Visits Requested Visits Authorized [id number] Closed Financial Clearance Required - OON Payor Clearance Not Met - Admin/Frit Maker/D irector Advise to Postpone/Resched ule or Not Proceed OON Notification Letter 12/15/2021 07/23/2022 1 1 Reason Comments Patient Update Medication Problem Reason Comments Patient Update Reason Comments Consult Initial [facility] Pt Outr each Reason Comments Consult [facility] Pt Outreach F/U Reason Comments Patient Question Reason Comments Consult [facility] Calling Reason Comments Consult [facility] Assessment [facility] Specialty Diagnoses / Procedures Referred By Contelaine t Referred To Contact ADULT PSYCHOLOGY Diagnoses anxiety/ eval Procedures REFERRAL TO CC FINANCIAL COUNSELOR PSYCHIATRIC DIAGNOSTIC EVALUATION 1st johnal Clarence Rodriguez MD [address] [place] [address] Psyl Adult [place] [address] [place] [address] Referral ID Status Reason Start Date Expiration Date Visits Requested Visits Authorized [id number] Closed Financial Clearance Required - OON Payor OON Notification Letter Patient cleared - OON Required Payment Collected 12/27/2021 03/27/2022 1 1 Reason Comments New Patient Evaluation Specialty Diagnoses / Procedures Referred By Mario t Referred To Contact ADULT PSYCHOLOGY Diagnoses medication Procedures REFERRAL TO CC FINANCIAL COUNSELOR EST patient Grey Barkley, RAINBOW TROUT FARM MANAGER [address] [place] [address] Psyl Adult [facility] [address] [place] [address] Referral ID Status Reason Start Date Expiration Date Visits Requested Visits Authorized [id number] Closed Financial Clearance Required - OON Payor OON Notification Letter Patient Cleared Patient chose to pay or Auth obtained after CCN denied 01/28/2022 04/28/2022 1 1 Reason Comments left shoulder pain Flipped mower over 1 hour ago Reason Comments ER F/U [facility] ER follow up 02/22 3 dx: mower rolled over on him Specialty Diagnoses / Procedures Referred By Contac t Referred To Contact FAMILY MEDICINE Diagnoses ER f/u Procedures consult and treat MD Janusz Li [facility] [address] [place] [address] Referral ID Status Reason Start Date Expiration Date V isits Requested Visits Authorized [id number] Denied OON/Self Pay Override 03/22/2022 06/20/2022 1 0 Reason Comments Results Reason Comments PT Eval Specialty Diagnoses / Procedures Referred By Contac t Referred To Contact [facility] Diagnoses Acute pain of left shoulder Procedures CONSULT TO PHYSICAL THERAPY PHYSICAL THERAPY EVALUATION HIGH COMPLEX 45 MINS Nae Domínguez, BLAKE.CONTINUITY CLERK [address] [place] [address] [facility] [address] [place] [address] Referral ID Status Reason Start Date Expiration Date V isits Requested Visits Authorized [id number] Closed Financial Clearance Required - OON Payor [...] Anuel Mckenna MD [address] [place] [address] Mr Imaging Referral ID Status Reason Start Date Expiration Date Visits Requested Visits Authorized [id number] Closed Auto-Generated Referral Patient cleared - OON Required Payment Collected OON Notification Letter 04/28/2022 05/28/2023 1 1 Reason Comments New Pain Specialty Diagnoses / Procedures Referred By Contac t Referred To Contact ORTHOPAEDIC SURGERY Diagnoses Torn Rotator Cuff Procedures Office Visit Anuel Mckenna MD [address] [place] [address] Orth [facility] [address] [place] [address] Referral ID Status Reason Start Date Expiration Date Visits Requested Visits Authorized [id number] Closed Financial Clearance Required - OON Payor OON Notification Letter Patient cleared - OON Required Payment Collected 04/11/2022 07/10/2022 1 1 Reason Onset Date Comments Refill Request 06/24/2022 Specialty Diagnoses / Procedures Referred By Contac t Referred To Contact Psychiatry / ADULT PSYCHIATRY Diagnoses NEW PATIENT Procedures VIDEO PSYC/PSYL NEW Filippo, Grey, RAINBOW TROUT FARM MANAGER [address] [place] [address] Tayler Gonsalez, SUBMARINE ELEMENT COORDINATOR.CONTINUITY CLERK [address] [place] [address] Referral ID Status Reason Start Date Expiration Date Visits Requested Visits Authorized [id number] Closed Financial Clearance Required - OON Payor [...] TEST, TREAT, CONSULT Caryl Green PA-C [address] [place] [address] [facility] [address] [place] [address] Referral ID Status Reason Start Date Expiration Date V isits Requested Visits Authorized [id number] Closed Financial Clearance Required - OON Payor Patient cleared - OON Required Payment Collected 02/15/2023 05/16/2023 1 1 Reason Comments Pain (Shoulder Pain) left shoulder pain into chest x 2 days, comes and goes Reason Comments Pain Specialty Diagnoses / Procedures Referred By Contac t Referred To Contact [facility] Diagnoses GERD ISSUES Procedures REFERRAL TO [facility] FINANCIAL COUNSELOR Clarence Reed MD [address] [place] [address] [facility] [place] [address] Referral ID Status Reason Start Date Expiration Date Visits Requested Visits Authorized [id number] Closed Financial Clearance Required - OON Payor OON Notification Letter Patient cleared - OON Required Payment Collected 04/11/2023 07/10/2023 1 1 Reason Comments Radiology US Specialty Diagnoses / Procedures Referred By Gillianac t Referred To Contact US IMAGING Diagnoses Elevated LFTs Procedures US ABD RIGHT UPPER QUADRANT US ABDOMINAL REAL TIME W/IMAGE LIMITED Caryl Green PA-C [address] [place] [address] [place] [address] Referral ID Status Reason Start Date Expiration Date V isits Requested Visits Authorized [id number] Closed Patient Cleared - True Self-Pay required [...] Care Teams (unrecognized sec tion and content) Correctional Classification Counselor Relationship Specialty Start Date End Date Clarence Rodriguez MD [address] [place] [address] PCP - General Family Practice 10/03/19 Correctional Classification Counselor Relationship Specialty Start Date End Date Clarence Rodriguez MD [address] [place], [place] [address] [phone] PCP - General Family Practice 10/03/19 Correctional Classification Counselor Relationship Specialty [place] [address] [place] [address] PCP - General Family Practice 10/03/19 Correctional Classification Counselor Relationship Specialty Start Date End Date Clarence Rodriguez MD [address] [place] [address] PCP - General Family Practice 10/03/19 Correctional Classification Counselor Relationship Specialty Start Date End Date Clarence Rodriguez MD [address] [place] [address], [place] [address] PCP - General Family Practice 10/03/19 Correctional Classification Counselor Relationship Specialty Start Date End Date Clarence Rodriguez MD [address] [place] [address] [place] [address] PCP - General Family Practice 10/03/19 Correctional Classification Counselor Relationship Specialty Start Date End Date Clarence Rodriguez MD [address] [place] [address] [place] [address] PCP - General Family Practice 10/03/19 Correctional Classification Counselor Relationship Specialty Start Date End Date Clarence Rodriguez MD [address] [place] [address] PCP - General Family Practice 10/03/19 Correctional Classification Counselor Relationship Specialty Start Date End Date Clarence Rodriguez MD [address] [place] [phone] PCP - General Family Practice 10/03/19 Correctional Classification Counselor Relationship Specialty Start Date End Date Clarence Rodriguez MD [address] [place] [address] PCP - General Family Practice 10/03/19 Correctional Classification Counselor Relationship Specialty Start Date End Date Clarence Rodriguez MD [address] [place] [address] PCP - General Family Practice 10/03/19 Correctional Classification Counselor Relationship Specialty Start Date End Date Clarence Rodriguez MD [address] [place] [address] [place] [address] PCP - General Family Practice 10/03/19 Correctional Classification Counselor Relationship Specialty Start Date End Date Clarence Rodriguez MD [address] [place] [address] [place] [address] PCP - General Family Medicine 10/03/19 Correctional Classification Counselor Relationship Specialty Start Date End Date Clarence Rodriguez MD [address] [facility] [place] [address] PCP - General Family Medicine 10/03/19 Correctional Classification Counselor Relationship Specialty Start Date End Date Clarence Rodriguez MD [address] [facility] [place] [address] PCP - General Family Medicine 10/03/19 Correctional Classification Counselor Relationship Specialty Start Date End Date Clarence Rodriguez MD [facility] [place] [address] PCP - General Family Medicine 10/03/19 Correctional Classification Counselor Relationship Specialty Start Date End Date Claernce Rodriguez MD [facility] [place] [address] PCP - General Family Medicine 10/03/19 Correctional Classification Counselor Relationship Specialty Start Date End Date Clarence Rodriguez MD [facility] [place] [address] PCP - General Family Medicine 10/03/19 Correctional Classification Counselor Relationship Specialty Start Date End Date Clarence Rodriguez MD [facility] [place] [address] PCP - General Family Medicine 10/03/19 Correctional Classification Counselor Relationship Specialty Start Date End Date Clarence Rodriguez MD [facility] [place] [address] PCP - General Family Medicine 10/03/19 Correctional Classification Counselor Relationship Specialty Start Date End Date Clarence Rodriguez MD [facility] [place] [address] PCP - General Family Medicine 10/03/19 Correctional Classification Counselor Relationship Specialty Start Date End Date Clarence Rodriguez MD [facility] [place] [address] PCP - General Family Medicine 10/03/19 Correctional Classification Counselor Relationship Specialty Start Date End Date Clarence Rodriguez MD [address] [place] [address] PCP - General Family Medicine 10/03/19 Correctional Classification Counselor Relationship Specialty Start Date End Date Clarence Rodriguez MD [address] [place] [address] PCP - General Family Medicine 10/03/19 Correctional Classification Counselor Relationship Specialty Start Date End Date Clarence Rodriguez MD [address] [place] [address] PCP - General Family Medicine 10/03/19 Correctional Classification Counselor Relationship Specialty Start Date End Date Clarence Rodriguez MD [address] [place] [address] PCP - General Family Medicine 10/03/19 Correctional Classification Counselor Relationship Specialty Start Date End Date Clarence Rodriguez MD [address] [place] [address] PCP - General Family Medicine 10/03/19 Correctional Classification Counselor Relationship Specialty Start Date End Date Clarence Rodriguez MD [address] [place] [address] PCP - General Family Medicine 10/03/19 Correctional Classification Counselor Relationship Specialty Start Date End Date Clarence Rodriguez MD [address] [place] [address] PCP - General Family Medicine 10/03/19 Team [...] Rodriguez MD Attending Provider, Referring Provider Active Correctional Classification Counselor Relationship Specialty Start Date End Date Clarence Rodriguez MD [address] [place] [address] PCP - General Family Medicine 10/03/19 Correctional Classification Counselor Relationship Specialty Start Date End Date Clarence Rdoriguez MD [address] [place] [address] PCP - General Family Medicine 10/03/19 Team Status: Inactive Member Role Status Dates SWATI Magaña Primary Care Provider Active Dr. Richelle Richards MD Emergency Provider Active Correctional Classification Counselor Relationship Specialty Start Date End Date Clarence Rodriguez MD [address] [place] [address] PCP - General Family Medicine 10/03/19 Correctional Classification Counselor Relationship Specialty Start Date End Date Clarence Rodriguez MD [address] [place] [address] PCP - General Family Medicine 10/03/19 Correctional Classification Counselor Relationship Specialty Start Date End Date Clarence Rodriguez MD [address] [place] [address] PCP - General Family Medicine 10/03/19 Blanca Olivares APRN.CONTINUITY CLERK [address] [place] [address] Tool And Die Inspector Family Medicine 06/29/24 Caryl Green PA-C [address] [place] [address] [facility] 06/29/24 Correctional Classification Counselor Relationship Specialty Start Date End Date Clarence Rodriguez MD [address] [place], [place] [id number] PCP - General Family Medicine 10/03/19 Blanca Olivares APRN.CNP [address] [place], [place] [id number] [facility] 06/[facility]/24 Caryl Green PA-C [address] [place] [address] [facility] 06/29/24 Team Status: Active [...] February 05, 2025 Dr. Jak Bates DO Attending Provider Activ e Start: February 05, 2025 End: February 05, 2025 Team Status: Inactive Member Role/Relationship Status Dates Caryl LONGORIA PA Primary Care Provider Active Start: February 09, [...] section and content) DATE CREATED AUTHOR 08/07/2024 [facility] DATE CREATED AUTHOR 'S ORGANIZ ATION 02/16/2025 [facility] FOR RECORDS PERTAINING TO PATIENTS WHO [...] BE BASED ON THE PRIMARY CLINICAL RECORDS. [email or web address] provides no warranty or guarantee of the accuracy or completeness of information in this document.
== END | disposition home or self-care (01) ==
LOC: ED 16:10
PROVIDERS: PCP Physician Assistant
DX: Z23 Encounter for immunization (principal)
CPT/HCPCS: 90675